=== PATIENT | female | born 1945 | race Asian ===

== ENCOUNTER 2017-05-27 16:28 | Inpatient (IN) | payer MEDICARE, OTHER ==
[2017-05-27] MEDS ORDERED: ALBUTEROL HFA 8 GM INHALER INH (18:00)
[2017-05-27] MEDS ORDERED: PANTOPRAZOLE (EC) 40 MG TAB PO (18:00)
[2017-05-27] MEDS: ASPIRIN 81 MG TAB PO (18:15)
[2017-05-27] MEDS: FUROSEMIDE 40 MG INJ IV (18:15)
[2017-05-27] MEDS: PIPER-TAZO 3.375 GM IV (PMX) 100 ML IVPB (18:16)
[2017-05-27 19:32] LABS: HEMATOCRIT 32.3 % (37.0-47.0); HEMOGLOBIN 10.7 g/dl (12.0-16.0); MEAN CORPUSCULAR HEMOGLOBIN 31.8 pg (29.0-33.0); MEAN CORPUSCULAR HGB CONC 33.1 g/dl (32.0-37.0); MEAN CORPUSCULAR VOLUME 95.8 fl (82.0-101.0); MEAN PLATELET VOLUME 9.1 fl (7.4-10.4); NUCLEATED RED BLOOD CELLS% 0.2 /100WBC (0.0-0.0); PLATELET COUNT 244 10^3/UL (140-415); RED BLOOD COUNT 3.37 10^6/ul (4.20-5.40); RED CELL DISTRIBUTION WIDTH 14.9 % (11.5-14.5)
[2017-05-27 19:32] LABS: WHITE BLOOD COUNT 8.4 10^3/ul (4.8-10.8)
[2017-05-27 19:33] LABS: ADD MAN DIFF? YES
[2017-05-27 19:57] LABS: ALANINE AMINOTRANSFERASE 51 IU/L (13-69); ALBUMIN 3.6 g/dl (3.3-4.9); ALBUMIN/GLOBULIN RATIO 0.85; ALKALINE PHOSPHATASE 236 IU/L (42-121); ANION GAP 17 (8-16); ASPARTATE AMINO TRANSFERASE 117 IU/L (15-46); BILIRUBIN,INDIRECT 0.3 mg/dl (0-1.1); BILIRUBIN,TOTAL 0.3 mg/dl (0.2-1.3); BLOOD UREA NITROGEN 49 mg/dl (7-20); CALCIUM 10.1 mg/dl (8.4-10.2); CARBON DIOXIDE 28 mmol/L (21-31); CHLORIDE 101 mmol/L (97-110); CREATININE 2.85 mg/dl (0.44-1.00); GLUCOSE 210 mg/dl (70-220); SODIUM 140 mmol/L (135-144); TOTAL PROTEIN 7.8 g/dl (6.1-8.1)
[2017-05-27 19:58] LABS: MAGNESIUM 1.8 mg/dl (1.7-2.5)
[2017-05-27 20:04] LABS: POTASSIUM 6.1 mmol/L (3.5-5.1)
[2017-05-27 20:05] LABS: B-TYPE NATRIURETIC PEPTIDE 622 PG/ML (0-125)
[2017-05-27] MEDS: ALBUTEROL/IPRATROPIUM (NEB) 3 ML AMP HHN (20:18)
[2017-05-27 20:31] LABS: BAND NEUTROPHILS #M 0.5 10^3/ul (0.0-0.6); BAND NEUTROPHILS % (M) 6 % (0-4); EOSINOPHILS % (M) 6 % (0-7); LYMPHOCYTES #M 0.9 10^3/ul (0.8-2.9); LYMPHOCYTES % (M) 11 % (15-51); MONOCYTE #M 1.4 10^3/ul (0.3-0.9); MONOCYTES % (M) 17 % (0-11); PLATELET ESTIMATE NORMAL; REACTIVE LYMPHOCYTES% (M) 12 % (0-0); SEG NEUT #M 4.1 10^3/ul (1.6-7.5); SEGMENTED NEUTROPHILS (M) % 48 % (39-77); SMUDGE%M 19 % (0-0)
[2017-05-27] MEDS ORDERED: VALSARTAN 160 MG TAB NGT (21:00)
[2017-05-27] MEDS ORDERED: INSULIN ASPART [NOVOLOG] 3 ML PEN SC ×4 (21:00)
[2017-05-27] MEDS: SALMETEROL/FLUTICASONE 250/50 INHA INH (21:49)
[2017-05-27] MEDS: VALSARTAN 160 MG TAB PO (21:53)
[2017-05-27] MEDS: SILVER SULFADIAZINE 1% 25 GM CR TOP (21:54)
[2017-05-27] MEDS: METOPROLOL (XL) 100 MG TAB PO (21:54)
[2017-05-27] MEDS: RANITIDINE 150 MG TAB PO (21:54)
[2017-05-27] MEDS: morphine 2 MG INJ IV (21:55)
[2017-05-27] MEDS: NA POLYST SULFON 15 GM/60 ML BTL PO (21:55)
[2017-05-27 22:22] LABS: ADD UMIC NO; UR ASCORBIC ACID NEGATIVE (NEGATIVE); UR BILIRUBIN (Dip) NEGATIVE (NEGATIVE); UR BLOOD (Dip) NEGATIVE (NEGATIVE); UR CLARITY CLEAR (CLEAR); UR COLOR STRAW (YELLOW); UR GLUCOSE (Dip) 1+ mg/dL (NEGATIVE); UR KETONES (Dip) NEGATIVE (NEGATIVE); UR LEUKOCYTE ESTERASE (Dip) NEGATIVE Leu/ul (NEGATIVE); UR NITRITE (Dip) NEGATIVE (NEGATIVE); UR SPECIFIC GRAVITY (Dip) 1.006 (1.003-1.030); UR TOTAL PROTEIN (Dip) NEGATIVE (NEGATIVE); UR UROBILINOGEN (Dip) NEGATIVE (NEGATIVE)
[2017-05-27] MEDS: INSULIN ASPART [NOVOLOG] 3 ML PEN SC (22:23)
[2017-05-28] MEDS: traMADol 50 MG TAB PO (01:05)
[2017-05-28] MEDS: ALBUTEROL/IPRATROPIUM (NEB) 3 ML AMP HHN ×4 (01:44→21:22)
[2017-05-28] MEDS ORDERED: ACCU-CHEK XX (02:00)
[2017-05-28] MEDS: morphine 2 MG INJ IV (02:09)
[2017-05-28] MEDS: PIPER-TAZO 3.375 GM IV (PMX) 100 ML IVPB ×2 (02:09→09:52)
[2017-05-28] MEDS: ACCU-CHEK XX (02:10)
[2017-05-28] MEDS ORDERED: HYDROmorphONE 2 MG/ML SYG IV (04:30)
[2017-05-28 04:54] LABS: ADD MAN DIFF? NO
[2017-05-28] MEDS: FUROSEMIDE 40 MG INJ IV ×2 (05:06→17:55)
[2017-05-28] MEDS: PANTOPRAZOLE (EC) 40 MG TAB PO (05:06)
[2017-05-28] MEDS: HYDROCODONE/APAP (10/325) TAB PO ×2 (05:07→11:24)
[2017-05-28 05:27] LABS: ANION GAP 17 (8-16); B-TYPE NATRIURETIC PEPTIDE 979 PG/ML (0-125); BLOOD UREA NITROGEN 48 mg/dl (7-20); CALCIUM 9.2 mg/dl (8.4-10.2); CARBON DIOXIDE 27 mmol/L (21-31); CHLORIDE 102 mmol/L (97-110); CREATININE 2.91 mg/dl (0.44-1.00); GLUCOSE 253 mg/dl (70-220); MAGNESIUM 1.5 mg/dl (1.7-2.5); POTASSIUM 5.2 mmol/L (3.5-5.1); SODIUM 141 mmol/L (135-144)
[2017-05-28 06:55] LABS: BASOPHIL # 0.1 10^3/ul (0.0-0.1); BASOPHILS % 0.9 % (0.0-2.0); EOSINOPHILS # 0.2 10^3/ul (0.0-0.5); EOSINOPHILS % 2.6 % (0.0-7.0); HEMATOCRIT 27.3 % (37.0-47.0); LYMPHOCYTES # 2.2 10^3/ul (0.8-2.9); MEAN CORPUSCULAR HEMOGLOBIN 31.1 pg (29.0-33.0); MEAN CORPUSCULAR VOLUME 94.5 fl (82.0-101.0); MEAN PLATELET VOLUME 9.6 fl (7.4-10.4); MONOCYTE # 1.3 10^3/ul (0.3-0.9); MONOCYTES % 18.9 % (0.0-11.0); NEUTROPHIL # 3.2 10^3/ul (1.6-7.5); NUCLEATED RED BLOOD CELLS # 0.1 10^3/ul (0.0-0.0); PLATELET COUNT 219 10^3/UL (140-415); RED BLOOD COUNT 2.89 10^6/ul (4.20-5.40); RED CELL DISTRIBUTION WIDTH 14.9 % (11.5-14.5)
[2017-05-28] MEDS: ASPIRIN 81 MG TAB PO (08:24)
[2017-05-28] MEDS: METOPROLOL (XL) 100 MG TAB PO (08:25)
[2017-05-28] MEDS: SILVER SULFADIAZINE 1% 25 GM CR TOP ×2 (08:25→22:46)
[2017-05-28] MEDS: RANITIDINE 150 MG TAB PO ×2 (08:25→22:47)
[2017-05-28] MEDS: SALMETEROL/FLUTICASONE 250/50 INHA INH ×2 (08:26→22:45)
[2017-05-28] MEDS: INSULIN ASPART [NOVOLOG] 3 ML PEN SC ×4 (08:27→22:55)
[2017-05-28] MEDS: VALSARTAN 160 MG TAB PO (08:29)
[2017-05-28] MEDS ORDERED: METOPROLOL (XL) 100 MG TAB PO (09:00)
[2017-05-28] MEDS ORDERED: morphine 4 MG/ML VIAL IV (10:00)
[2017-05-28] MEDS: MAGNESIUM SULFATE 1 GM/D5W 100 ML IVPB (10:14)
[2017-05-28] MEDS: VANCOMYCIN 500MG/NS (PMX) 100 ML IVPB (12:57)
[2017-05-28] MEDS: ENOXAPARIN 100 MG/ML SYG SC (15:06)
[2017-05-28] MEDS: PIPER-TAZO 2.25 GM (PMX) 50 ML IVPB ×2 (16:21→23:04)
[2017-05-28] MEDS: EPOETIN 10000 UNITS/ML (NON ESRD/NON ONCOLOGY) SC (16:34)
[2017-05-28] MEDS ORDERED: PIPER-TAZO 3.375 GM IV (PMX) 100 ML IVPB (21:00)
[2017-05-29] MEDS: METOPROLOL (XL) 100 MG TAB PO ×3 (00:10→21:10)
[2017-05-29] MEDS: ACCU-CHEK XX (02:00)
[2017-05-29] MEDS: ALBUTEROL/IPRATROPIUM (NEB) 3 ML AMP HHN ×4 (02:39→19:21)
[2017-05-29] MEDS: PANTOPRAZOLE (EC) 40 MG TAB PO (06:15)
[2017-05-29] MEDS: PIPER-TAZO 2.25 GM (PMX) 50 ML IVPB ×3 (06:15→21:09)
[2017-05-29] MEDS: FUROSEMIDE 40 MG INJ IV ×2 (06:20→17:35)
[2017-05-29 08:48] LABS: ADD MAN DIFF? NO
[2017-05-29] MEDS: INSULIN ASPART [NOVOLOG] 3 ML PEN SC ×4 (08:54→21:37)
[2017-05-29 08:58] LABS: WHITE BLOOD COUNT 8.8 10^3/ul (4.8-10.8)
[2017-05-29 08:58] LABS: ABNORMAL IP MESSAGE 1; BASOPHIL # 0.1 10^3/ul (0.0-0.1); BASOPHILS % 0.8 % (0.0-2.0); EOSINOPHILS # 0.4 10^3/ul (0.0-0.5); EOSINOPHILS % 4.8 % (0.0-7.0); HEMATOCRIT 30.3 % (37.0-47.0); HEMOGLOBIN 9.9 g/dl (12.0-16.0); LYMPHOCYTES # 3.4 10^3/ul (0.8-2.9); LYMPHOCYTES % 38.1 % (15.0-51.0); MEAN CORPUSCULAR HEMOGLOBIN 31.1 pg (29.0-33.0); MEAN CORPUSCULAR HGB CONC 32.7 g/dl (32.0-37.0); MEAN CORPUSCULAR VOLUME 95.3 fl (82.0-101.0); MEAN PLATELET VOLUME 9.4 fl (7.4-10.4); MONOCYTE # 1.6 10^3/ul (0.3-0.9); MONOCYTES % 18.6 % (0.0-11.0); NEUTROPHIL # 3.3 10^3/ul (1.6-7.5); NEUTROPHILS % 36.9 % (39.0-77.0); NUCLEATED RED BLOOD CELLS% 0.5 /100WBC (0.0-0.0); PLATELET COUNT 250 10^3/UL (140-415); RED BLOOD COUNT 3.18 10^6/ul (4.20-5.40); RED CELL DISTRIBUTION WIDTH 14.6 % (11.5-14.5)
[2017-05-29 09:03] LABS: POSITIVE DIFF @See below
[2017-05-29 09:11] LABS: IRON 73 ug/dl (35-150)
[2017-05-29 09:16] LABS: ALANINE AMINOTRANSFERASE 47 IU/L (13-69); ALBUMIN 2.8 g/dl (3.3-4.9); ALBUMIN/GLOBULIN RATIO 0.75; ALKALINE PHOSPHATASE 180 IU/L (42-121); ANION GAP 17 (8-16); ASPARTATE AMINO TRANSFERASE 80 IU/L (15-46); BILIRUBIN,INDIRECT 0.3 mg/dl (0-1.1); BILIRUBIN,TOTAL 0.3 mg/dl (0.2-1.3); BLOOD UREA NITROGEN 47 mg/dl (7-20); CALCIUM 9.5 mg/dl (8.4-10.2); CARBON DIOXIDE 31 mmol/L (21-31); CHLORIDE 100 mmol/L (97-110); CREATININE 3.33 mg/dl (0.44-1.00); GLUCOSE 150 mg/dl (70-220); MAGNESIUM 1.5 mg/dl (1.7-2.5); SODIUM 143 mmol/L (135-144); TOTAL PROTEIN 6.5 g/dl (6.1-8.1)
[2017-05-29 09:21] LABS: % IRON SATURATION 26 % SAT (22-52); TOTAL IRON BINDING CAPACITY 279 ug/dl (241-421)
[2017-05-29 09:22] LABS: B-TYPE NATRIURETIC PEPTIDE 571 PG/ML (0-125)
[2017-05-29] MEDS: APIXABAN 5 MG TABLET PO ×2 (09:41→21:10)
[2017-05-29] MEDS: SALMETEROL/FLUTICASONE 250/50 INHA INH ×2 (09:41→21:00)
[2017-05-29] MEDS: ASPIRIN 81 MG TAB PO (09:41)
[2017-05-29] MEDS: SILVER SULFADIAZINE 1% 25 GM CR TOP ×2 (09:46→21:15)
[2017-05-29] MEDS: HYDROCODONE/APAP (10/325) TAB PO (11:18)
[2017-05-29 12:14] LABS: OCCULT BLOOD STOOL POSITIVE (NEGATIVE)
[2017-05-29] MEDS: morphine 2 MG INJ IV (13:02)
[2017-05-29] MEDS ORDERED: MAGNESIUM SULFATE 2 GM/50 ML 50 ML IVPB (14:00)
[2017-05-29] MEDS: MAGNESIUM SULFATE 2 GM/50 ML 50 ML IVPB (16:54)
[2017-05-29 17:26] LABS: CREATININE, RANDOM URINE 14 mg/dL (20-320); MICROALBUMIN 12.2 mg/dL; MICROALBUMIN/CREATININE RATIO 871 (<30)
[2017-05-29] MEDS: RANITIDINE 150 MG TAB PO (21:10)
[2017-05-30] MEDS: ALBUTEROL/IPRATROPIUM (NEB) 3 ML AMP HHN ×4 (01:05→20:21)
[2017-05-30] MEDS: ACCU-CHEK XX (02:00)
[2017-05-30 03:08] LABS: CREATININE,URINE RANDOM 74.11 mg/dl (20-320); PROTEIN/CREAT RATIO 0.82 RATIO
[2017-05-30] MEDS: PANTOPRAZOLE (EC) 40 MG TAB PO (06:29)
[2017-05-30] MEDS: FUROSEMIDE 40 MG INJ IV ×2 (06:29→08:28)
[2017-05-30] MEDS: PIPER-TAZO 2.25 GM (PMX) 50 ML IVPB ×3 (06:30→22:32)
[2017-05-30 07:42] LABS: ADD MAN DIFF? NO
[2017-05-30 07:56] LABS: ABNORMAL IP MESSAGE 1; BASOPHIL # 0.1 10^3/ul (0.0-0.1); BASOPHILS % 0.5 % (0.0-2.0); EOSINOPHILS # 0.5 10^3/ul (0.0-0.5); EOSINOPHILS % 4.5 % (0.0-7.0); HEMATOCRIT 28.2 % (37.0-47.0); HEMOGLOBIN 9.4 g/dl (12.0-16.0); LYMPHOCYTES # 3.3 10^3/ul (0.8-2.9); LYMPHOCYTES % 32.5 % (15.0-51.0); MEAN CORPUSCULAR HEMOGLOBIN 31.9 pg (29.0-33.0); MEAN CORPUSCULAR HGB CONC 33.3 g/dl (32.0-37.0); MEAN CORPUSCULAR VOLUME 95.6 fl (82.0-101.0); MEAN PLATELET VOLUME 9.5 fl (7.4-10.4); MONOCYTE # 1.6 10^3/ul (0.3-0.9); MONOCYTES % 15.6 % (0.0-11.0); NEUTROPHIL # 4.6 10^3/ul (1.6-7.5); NEUTROPHILS % 45.4 % (39.0-77.0); NUCLEATED RED BLOOD CELLS # 0.1 10^3/ul (0.0-0.0); NUCLEATED RED BLOOD CELLS% 0.6 /100WBC (0.0-0.0); PLATELET COUNT 247 10^3/UL (140-415); RED BLOOD COUNT 2.95 10^6/ul (4.20-5.40); RED CELL DISTRIBUTION WIDTH 14.5 % (11.5-14.5)
[2017-05-30 07:56] LABS: WHITE BLOOD COUNT 10.1 10^3/ul (4.8-10.8)
[2017-05-30 08:00] LABS: POSITIVE DIFF @See below
[2017-05-30 08:10] LABS: ANION GAP 17 (8-16); BLOOD UREA NITROGEN 50 mg/dl (7-20); CALCIUM 8.9 mg/dl (8.4-10.2); CARBON DIOXIDE 31 mmol/L (21-31); CHLORIDE 98 mmol/L (97-110); CREATININE 4.29 mg/dl (0.44-1.00); GLUCOSE 184 mg/dl (70-220); MAGNESIUM 2.1 mg/dl (1.7-2.5); POTASSIUM 4.8 mmol/L (3.5-5.1); SODIUM 141 mmol/L (135-144)
[2017-05-30] MEDS: ASPIRIN 81 MG TAB PO (08:26)
[2017-05-30] MEDS: APIXABAN 5 MG TABLET PO ×2 (08:26→22:32)
[2017-05-30] MEDS: METOPROLOL (XL) 100 MG TAB PO ×2 (08:27→22:33)
[2017-05-30] MEDS: SILVER SULFADIAZINE 1% 25 GM CR TOP ×2 (08:29→22:40)
[2017-05-30] MEDS: SALMETEROL/FLUTICASONE 250/50 INHA INH ×2 (08:29→22:32)
[2017-05-30] MEDS: morphine LIQ (10 MG/5 ML) CUP PO ×2 (08:30→13:19)
[2017-05-30] MEDS: INSULIN ASPART [NOVOLOG] 3 ML PEN SC ×4 (08:32→22:42)
[2017-05-30 14:12] LABS: FOLATE > 20.0 ng/ml (2.8-20.0)
[2017-05-30] MEDS: EPOETIN 10000 UNITS/ML (NON ESRD/NON ONCOLOGY) SC (17:35)
[2017-05-30] MEDS: ONDANSETRON 4 MG INJ IV (18:15)
[2017-05-30 18:42] LABS: PROCALCITONIN 0.68 ng/mL (<0.10)
[2017-05-30] MEDS: SOD CHLORIDE 0.9% 250 ML IV (18:49)
[2017-05-30] MEDS: RANITIDINE 150 MG TAB PO (22:32)
[2017-05-31] MEDS: SOD CHLORIDE 0.9% 1,000 ML IV ×2 (01:28→14:18)
[2017-05-31] MEDS: ACCU-CHEK XX (01:28)
[2017-05-31] MEDS: ALBUTEROL/IPRATROPIUM (NEB) 3 ML AMP HHN ×4 (01:46→20:42)
[2017-05-31] MEDS: PANTOPRAZOLE (EC) 40 MG TAB PO (06:35)
[2017-05-31] MEDS: PIPER-TAZO 2.25 GM (PMX) 50 ML IVPB ×3 (06:35→20:31)
[2017-05-31] MEDS: SOD CHLORIDE 0.9% 250 ML IV (07:30)
[2017-05-31 08:05] LABS: ADD MAN DIFF? NO
[2017-05-31 08:14] LABS: ABNORMAL IP MESSAGE 1; BASOPHIL # 0.1 10^3/ul (0.0-0.1); BASOPHILS % 0.5 % (0.0-2.0); EOSINOPHILS # 0.6 10^3/ul (0.0-0.5); EOSINOPHILS % 5.2 % (0.0-7.0); HEMATOCRIT 29.3 % (37.0-47.0); HEMOGLOBIN 9.3 g/dl (12.0-16.0); LYMPHOCYTES % 35.1 % (15.0-51.0); MEAN CORPUSCULAR HEMOGLOBIN 30.7 pg (29.0-33.0); MEAN CORPUSCULAR HGB CONC 31.7 g/dl (32.0-37.0); MEAN CORPUSCULAR VOLUME 96.7 fl (82.0-101.0); MEAN PLATELET VOLUME 9.3 fl (7.4-10.4); MONOCYTE # 1.9 10^3/ul (0.3-0.9); NEUTROPHIL # 4.6 10^3/ul (1.6-7.5); NEUTROPHILS % 40.3 % (39.0-77.0); NUCLEATED RED BLOOD CELLS # 0.2 10^3/ul (0.0-0.0); NUCLEATED RED BLOOD CELLS% 2.1 /100WBC (0.0-0.0); PLATELET COUNT 257 10^3/UL (140-415); RED BLOOD COUNT 3.03 10^6/ul (4.20-5.40); RED CELL DISTRIBUTION WIDTH 14.7 % (11.5-14.5)
[2017-05-31 08:14] LABS: WHITE BLOOD COUNT 11.4 10^3/ul (4.8-10.8)
[2017-05-31 08:20] LABS: MONOCYTES % 16.8 % (0.0-11.0); POSITIVE DIFF @See below
[2017-05-31 08:29] LABS: ALANINE AMINOTRANSFERASE 35 IU/L (13-69); ALBUMIN/GLOBULIN RATIO 0.75; ALKALINE PHOSPHATASE 152 IU/L (42-121); ANION GAP 20 (8-16); ASPARTATE AMINO TRANSFERASE 61 IU/L (15-46); BILIRUBIN,INDIRECT 0.3 mg/dl (0-1.1); BILIRUBIN,TOTAL 0.3 mg/dl (0.2-1.3); BLOOD UREA NITROGEN 61 mg/dl (7-20); CALCIUM 8.4 mg/dl (8.4-10.2); CARBON DIOXIDE 28 mmol/L (21-31); CHLORIDE 98 mmol/L (97-110); CREATININE 6.25 mg/dl (0.44-1.00); GLUCOSE 152 mg/dl (70-220); MAGNESIUM 2.2 mg/dl (1.7-2.5); POTASSIUM 5.5 mmol/L (3.5-5.1); SODIUM 140 mmol/L (135-144)
[2017-05-31] MEDS: APIXABAN 5 MG TABLET PO ×2 (08:41→20:28)
[2017-05-31] MEDS: METOPROLOL (XL) 100 MG TAB PO ×2 (08:42→20:25)
[2017-05-31] MEDS: INSULIN ASPART [NOVOLOG] 3 ML PEN SC ×4 (08:43→20:56)
[2017-05-31] MEDS: SALMETEROL/FLUTICASONE 250/50 INHA INH ×2 (09:16→20:28)
[2017-05-31] MEDS: SILVER SULFADIAZINE 1% 25 GM CR TOP ×2 (09:16→20:28)
[2017-05-31] MEDS: NA POLYST SULFON 15 GM/60 ML BTL PO (14:05)
[2017-05-31 15:30] LABS: ADD UMIC YES; UR ASCORBIC ACID NEGATIVE (NEGATIVE); UR BILIRUBIN (Dip) NEGATIVE (NEGATIVE); UR BLOOD (Dip) 1+ mg/dL (NEGATIVE); UR CLARITY SLIGHTLY CLOUDY (CLEAR); UR COLOR YELLOW (YELLOW); UR GLUCOSE (Dip) NEGATIVE (NEGATIVE); UR KETONES (Dip) TRACE mg/dL (NEGATIVE); UR LEUKOCYTE ESTERASE (Dip) NEGATIVE Leu/ul (NEGATIVE); UR NITRITE (Dip) NEGATIVE (NEGATIVE); UR RBC 3 /HPF (0-5); UR SPECIFIC GRAVITY (Dip) 1.023 (1.003-1.030); UR TOTAL PROTEIN (Dip) 2+ mg/dl (NEGATIVE); UR UROBILINOGEN (Dip) NEGATIVE (NEGATIVE); UR WBC 3 /HPF (0-5)
[2017-05-31 16:15] LABS: SODIUM,URINE RANDOM 34 mmol/L (30-90)
[2017-05-31] MEDS: RANITIDINE 150 MG TAB PO (20:28)
[2017-05-31 22:45] LABS: POTASSIUM 5.5 mmol/L (3.5-5.1)
[2017-06-01] MEDS: NA POLYST SULFON 15 GM/60 ML BTL PO (00:14)
[2017-06-01] MEDS: SOD CHLORIDE 0.9% 1,000 ML IV ×3 (00:27→17:34)
[2017-06-01] MEDS: ALBUTEROL/IPRATROPIUM (NEB) 3 ML AMP HHN ×4 (01:38→19:41)
[2017-06-01] MEDS: ACCU-CHEK XX (01:48)
[2017-06-01] MEDS: PANTOPRAZOLE (EC) 40 MG TAB PO (06:08)
[2017-06-01] MEDS: PIPER-TAZO 2.25 GM (PMX) 50 ML IVPB ×3 (06:08→21:21)
[2017-06-01 06:50] LABS: ADD MAN DIFF? NO
[2017-06-01 06:53] LABS: WHITE BLOOD COUNT 11.5 10^3/ul (4.8-10.8)
[2017-06-01 06:53] LABS: ABNORMAL IP MESSAGE 1; BASOPHIL # 0.1 10^3/ul (0.0-0.1); BASOPHILS % 0.6 % (0.0-2.0); EOSINOPHILS # 0.5 10^3/ul (0.0-0.5); EOSINOPHILS % 4.2 % (0.0-7.0); HEMATOCRIT 27.5 % (37.0-47.0); LYMPHOCYTES % 26.4 % (15.0-51.0); MEAN CORPUSCULAR HEMOGLOBIN 30.9 pg (29.0-33.0); MEAN CORPUSCULAR HGB CONC 32.7 g/dl (32.0-37.0); MEAN CORPUSCULAR VOLUME 94.5 fl (82.0-101.0); MEAN PLATELET VOLUME 9.2 fl (7.4-10.4); MONOCYTE # 1.9 10^3/ul (0.3-0.9); NEUTROPHIL # 5.7 10^3/ul (1.6-7.5); NEUTROPHILS % 49.8 % (39.0-77.0); NUCLEATED RED BLOOD CELLS # 0.3 10^3/ul (0.0-0.0); NUCLEATED RED BLOOD CELLS% 2.2 /100WBC (0.0-0.0); PLATELET COUNT 242 10^3/UL (140-415); RED BLOOD COUNT 2.91 10^6/ul (4.20-5.40); RED CELL DISTRIBUTION WIDTH 14.6 % (11.5-14.5)
[2017-06-01 07:03] LABS: MONOCYTES % 16.3 % (0.0-11.0); POSITIVE DIFF @See below
[2017-06-01 07:26] LABS: ANION GAP 18 (8-16); BLOOD UREA NITROGEN 66 mg/dl (7-20); CALCIUM 7.7 mg/dl (8.4-10.2); CARBON DIOXIDE 26 mmol/L (21-31); CHLORIDE 100 mmol/L (97-110); CREATININE 6.56 mg/dl (0.44-1.00); GLUCOSE 178 mg/dl (70-220); MAGNESIUM 2.1 mg/dl (1.7-2.5); POTASSIUM 4.2 mmol/L (3.5-5.1); SODIUM 140 mmol/L (135-144)
[2017-06-01] MEDS: INSULIN ASPART [NOVOLOG] 3 ML PEN SC ×4 (08:41→21:28)
[2017-06-01] MEDS: METOPROLOL (XL) 100 MG TAB PO ×2 (08:44→21:21)
[2017-06-01] MEDS: APIXABAN 5 MG TABLET PO ×2 (08:45→21:21)
[2017-06-01] MEDS: SALMETEROL/FLUTICASONE 250/50 INHA INH ×2 (08:45→21:21)
[2017-06-01] MEDS: SILVER SULFADIAZINE 1% 25 GM CR TOP ×2 (08:45→21:22)
[2017-06-01] MEDS: CALCIUM GLUCONATE 10% 2 GM in DEXTROSE 5% 100 ML IVPB (14:05)
[2017-06-01] MEDS: EPOETIN 10000 UNITS/ML (NON ESRD/NON ONCOLOGY) SC (17:56)
[2017-06-01] MEDS: PETROLATUM 28.35 GM JELLY TOP ×2 (17:57→21:22)
[2017-06-01] MEDS: RANITIDINE 150 MG TAB PO (21:20)
[2017-06-02] MEDS: ALBUTEROL/IPRATROPIUM (NEB) 3 ML AMP HHN ×4 (01:18→19:56)
[2017-06-02] MEDS: ACCU-CHEK XX (02:24)
[2017-06-02] MEDS: PIPER-TAZO 2.25 GM (PMX) 50 ML IVPB ×3 (05:34→21:23)
[2017-06-02] MEDS: PANTOPRAZOLE (EC) 40 MG TAB PO (05:34)
[2017-06-02 06:40] LABS: ADD MAN DIFF? NO
[2017-06-02 06:48] LABS: WHITE BLOOD COUNT 8.6 10^3/ul (4.8-10.8)
[2017-06-02 06:48] LABS: BASOPHIL # 0.1 10^3/ul (0.0-0.1); BASOPHILS % 0.6 % (0.0-2.0); EOSINOPHILS # 0.3 10^3/ul (0.0-0.5); EOSINOPHILS % 3.1 % (0.0-7.0); HEMATOCRIT 25.1 % (37.0-47.0); HEMOGLOBIN 8.3 g/dl (12.0-16.0); LYMPHOCYTES # 1.9 10^3/ul (0.8-2.9); LYMPHOCYTES % 22.4 % (15.0-51.0); MEAN CORPUSCULAR HEMOGLOBIN 31.6 pg (29.0-33.0); MEAN CORPUSCULAR HGB CONC 33.1 g/dl (32.0-37.0); MEAN CORPUSCULAR VOLUME 95.4 fl (82.0-101.0); MEAN PLATELET VOLUME 9.5 fl (7.4-10.4); MONOCYTE # 1.4 10^3/ul (0.3-0.9); MONOCYTES % 16.3 % (0.0-11.0); NEUTROPHIL # 4.8 10^3/ul (1.6-7.5); NEUTROPHILS % 55.9 % (39.0-77.0); NUCLEATED RED BLOOD CELLS # 0.2 10^3/ul (0.0-0.0); NUCLEATED RED BLOOD CELLS% 1.9 /100WBC (0.0-0.0); PLATELET COUNT 195 10^3/UL (140-415); RED BLOOD COUNT 2.63 10^6/ul (4.20-5.40); RED CELL DISTRIBUTION WIDTH 14.6 % (11.5-14.5)
[2017-06-02 07:07] LABS: INR 2.46; PROTIME 27.3 Sec (11.9-14.9); PT RATIO 2.1
[2017-06-02 07:08] LABS: PARTIAL THROMBOPLASTIN TIME 53.8 Sec (25.0-35.0)
[2017-06-02 07:14] LABS: ALANINE AMINOTRANSFERASE 32 IU/L (13-69); ALBUMIN 2.4 g/dl (3.3-4.9); ALBUMIN/GLOBULIN RATIO 0.64; ALKALINE PHOSPHATASE 144 IU/L (42-121); ANION GAP 17 (8-16); ASPARTATE AMINO TRANSFERASE 53 IU/L (15-46); BILIRUBIN,INDIRECT 0.2 mg/dl (0-1.1); BILIRUBIN,TOTAL 0.2 mg/dl (0.2-1.3); BLOOD UREA NITROGEN 52 mg/dl (7-20); CALCIUM 7.5 mg/dl (8.4-10.2); CARBON DIOXIDE 25 mmol/L (21-31); CHLORIDE 106 mmol/L (97-110); CREATININE 3.79 mg/dl (0.44-1.00); GLUCOSE 182 mg/dl (70-220); MAGNESIUM 1.7 mg/dl (1.7-2.5); POTASSIUM 3.1 mmol/L (3.5-5.1); SODIUM 145 mmol/L (135-144); TOTAL PROTEIN 6.1 g/dl (6.1-8.1)
[2017-06-02] MEDS: INSULIN ASPART [NOVOLOG] 3 ML PEN SC ×4 (08:20→20:24)
[2017-06-02] MEDS: METOPROLOL (XL) 100 MG TAB PO ×2 (08:21→20:23)
[2017-06-02] MEDS: APIXABAN 5 MG TABLET PO ×2 (08:21→20:16)
[2017-06-02] MEDS: SILVER SULFADIAZINE 1% 25 GM CR TOP ×2 (08:22→20:16)
[2017-06-02] MEDS: PETROLATUM 28.35 GM JELLY TOP ×2 (08:22→20:17)
[2017-06-02] MEDS: SALMETEROL/FLUTICASONE 250/50 INHA INH ×2 (08:22→20:16)
[2017-06-02] MEDS ORDERED: INSULIN GLARGINE [LANtus] 3 ML PEN SC (12:30)
[2017-06-02] MEDS: POTASSIUM CHLORIDE (SR) 20 MEQ TAB PO (13:28)
[2017-06-02] MEDS: CALCIUM CARBONATE 750 MG CHEW TAB PO ×2 (13:28→19:24)
[2017-06-02] MEDS: HYDROCODONE/APAP (10/325) TAB PO (13:54)
[2017-06-02 14:06] LABS: OCCULT BLOOD STOOL POSITIVE (NEGATIVE)
[2017-06-02] MEDS: SOD CHLORIDE 0.9% 1,000 ML IV (17:15)
[2017-06-02] MEDS: RANITIDINE 150 MG TAB PO (20:15)
[2017-06-03] MEDS: ACETAMINOPHEN 325 MG TAB PO (00:43)
[2017-06-03] MEDS: ALBUTEROL/IPRATROPIUM (NEB) 3 ML AMP HHN ×4 (01:03→19:39)
[2017-06-03] MEDS: ACCU-CHEK XX (02:57)
[2017-06-03] MEDS: PANTOPRAZOLE (EC) 40 MG TAB PO (05:45)
[2017-06-03] MEDS: PIPER-TAZO 2.25 GM (PMX) 50 ML IVPB ×3 (05:45→22:00)
[2017-06-03 07:38] LABS: ADD MAN DIFF? NO
[2017-06-03 07:53] LABS: BASOPHIL # 0.1 10^3/ul (0.0-0.1); BASOPHILS % 0.5 % (0.0-2.0); EOSINOPHILS # 0.3 10^3/ul (0.0-0.5); EOSINOPHILS % 3.2 % (0.0-7.0); HEMATOCRIT 22.7 % (37.0-47.0); HEMOGLOBIN 7.3 g/dl (12.0-16.0); LYMPHOCYTES # 2.4 10^3/ul (0.8-2.9); LYMPHOCYTES % 22.5 % (15.0-51.0); MEAN CORPUSCULAR HEMOGLOBIN 31.1 pg (29.0-33.0); MEAN CORPUSCULAR HGB CONC 32.2 g/dl (32.0-37.0); MEAN CORPUSCULAR VOLUME 96.6 fl (82.0-101.0); MEAN PLATELET VOLUME 9.7 fl (7.4-10.4); MONOCYTE # 1.5 10^3/ul (0.3-0.9); MONOCYTES % 13.6 % (0.0-11.0); NEUTROPHIL # 6.2 10^3/ul (1.6-7.5); NEUTROPHILS % 57.1 % (39.0-77.0); NUCLEATED RED BLOOD CELLS # 0.2 10^3/ul (0.0-0.0); NUCLEATED RED BLOOD CELLS% 1.8 /100WBC (0.0-0.0); PLATELET COUNT 199 10^3/UL (140-415); RED BLOOD COUNT 2.35 10^6/ul (4.20-5.40); RED CELL DISTRIBUTION WIDTH 14.8 % (11.5-14.5)
[2017-06-03 07:53] LABS: WHITE BLOOD COUNT 10.8 10^3/ul (4.8-10.8)
[2017-06-03] MEDS: SALMETEROL/FLUTICASONE 250/50 INHA INH ×2 (08:07→20:40)
[2017-06-03] MEDS: INSULIN ASPART [NOVOLOG] 3 ML PEN SC ×4 (08:07→20:48)
[2017-06-03] MEDS: SILVER SULFADIAZINE 1% 25 GM CR TOP ×2 (08:07→20:41)
[2017-06-03] MEDS: PETROLATUM 28.35 GM JELLY TOP (08:07)
[2017-06-03] MEDS: APIXABAN 5 MG TABLET PO (08:08)
[2017-06-03] MEDS: METOPROLOL (XL) 100 MG TAB PO ×2 (08:08→20:43)
[2017-06-03] MEDS: CALCIUM CARBONATE 750 MG CHEW TAB PO ×3 (08:08→18:33)
[2017-06-03 08:11] LABS: ALANINE AMINOTRANSFERASE 31 IU/L (13-69); ALBUMIN 2.4 g/dl (3.3-4.9); ALBUMIN/GLOBULIN RATIO 0.66; ALKALINE PHOSPHATASE 129 IU/L (42-121); ANION GAP 15 (8-16); ASPARTATE AMINO TRANSFERASE 46 IU/L (15-46); BILIRUBIN,INDIRECT 0.2 mg/dl (0-1.1); BILIRUBIN,TOTAL 0.2 mg/dl (0.2-1.3); BLOOD UREA NITROGEN 44 mg/dl (7-20); CALCIUM 7.6 mg/dl (8.4-10.2); CARBON DIOXIDE 25 mmol/L (21-31); CHLORIDE 108 mmol/L (97-110); CREATININE 2.57 mg/dl (0.44-1.00); GLUCOSE 221 mg/dl (70-220); POTASSIUM 3.7 mmol/L (3.5-5.1); SODIUM 144 mmol/L (135-144)
[2017-06-03] MEDS: SOD CHLORIDE 0.9% 1,000 ML IV (09:00)
[2017-06-03] MEDS: traMADol 50 MG TAB PO (09:02)
[2017-06-03] MEDS: INSULIN GLARGINE [LANtus] 3 ML PEN SC (09:08)
[2017-06-03] MEDS: HYDROCODONE/APAP (10/325) TAB PO (10:09)
[2017-06-03] MEDS: SOD CHLORIDE 0.9% 250 ML IV* (10:20)
[2017-06-03 11:05] LABS: ADD MAN DIFF? NO
[2017-06-03 11:15] LABS: BASOPHILS % 0.4 % (0.0-2.0); EOSINOPHILS # 0.4 10^3/ul (0.0-0.5); EOSINOPHILS % 3.3 % (0.0-7.0); HEMATOCRIT 21.7 % (37.0-47.0); LYMPHOCYTES # 2.4 10^3/ul (0.8-2.9); MEAN CORPUSCULAR HEMOGLOBIN 31.7 pg (29.0-33.0); MEAN CORPUSCULAR HGB CONC 32.3 g/dl (32.0-37.0); MEAN CORPUSCULAR VOLUME 98.2 fl (82.0-101.0); MEAN PLATELET VOLUME 9.7 fl (7.4-10.4); MONOCYTE # 1.4 10^3/ul (0.3-0.9); MONOCYTES % 12.5 % (0.0-11.0); NEUTROPHIL # 6.4 10^3/ul (1.6-7.5); NEUTROPHILS % 58.2 % (39.0-77.0); NUCLEATED RED BLOOD CELLS # 0.3 10^3/ul (0.0-0.0); NUCLEATED RED BLOOD CELLS% 2.6 /100WBC (0.0-0.0); PLATELET COUNT 195 10^3/UL (140-415); RED BLOOD COUNT 2.21 10^6/ul (4.20-5.40); RED CELL DISTRIBUTION WIDTH 14.8 % (11.5-14.5)
[2017-06-03 11:36] LABS: ANION GAP 15 (8-16); BLOOD UREA NITROGEN 44 mg/dl (7-20); CALCIUM 7.7 mg/dl (8.4-10.2); CARBON DIOXIDE 24 mmol/L (21-31); CHLORIDE 109 mmol/L (97-110); CREATININE 2.31 mg/dl (0.44-1.00); GLUCOSE 275 mg/dl (70-220); POTASSIUM 4.3 mmol/L (3.5-5.1); SODIUM 144 mmol/L (135-144)
[2017-06-03] MEDS ORDERED: LIDOCAINE 1% (MDV) 20 ML INJ (12:12)
[2017-06-03] MEDS ORDERED: MIDAZOLAM 1 MG/ML 2 ML INJ (12:38)
[2017-06-03] MEDS ORDERED: IODIXANOL LOCM 50 ML BTL (12:38)
[2017-06-03] MEDS ORDERED: FENTAnyl 50 MCG/ML VIAL (12:38)
[2017-06-03] MEDS: morphine LIQ (10 MG/5 ML) CUP PO (13:49)
[2017-06-03] MEDS: RANITIDINE 150 MG TAB PO (20:40)
[2017-06-03] MEDS: PETROLATUM 5 GM OINT TOP (21:00)
[2017-06-03 22:43] LABS: IMMEDIATE SPIN CROSSMATCH 1 2
[2017-06-04] MEDS: HYDROCODONE/APAP (10/325) TAB PO (01:26)
[2017-06-04] MEDS: ONDANSETRON 4 MG INJ IV ×2 (01:52→12:55)
[2017-06-04] MEDS: ALBUTEROL/IPRATROPIUM (NEB) 3 ML AMP HHN ×4 (02:05→19:17)
[2017-06-04] MEDS: ACCU-CHEK XX (02:34)
[2017-06-04] MEDS: SOD CHLORIDE 0.9% 1,000 ML IV (06:30)
[2017-06-04] MEDS: PANTOPRAZOLE (EC) 40 MG TAB PO (06:30)
[2017-06-04 07:30] LABS: ADD MAN DIFF? NO
[2017-06-04 07:36] LABS: BASOPHIL # 0.1 10^3/ul (0.0-0.1); BASOPHILS % 0.6 % (0.0-2.0); EOSINOPHILS # 0.4 10^3/ul (0.0-0.5); EOSINOPHILS % 3.6 % (0.0-7.0); HEMATOCRIT 29.6 % (37.0-47.0); HEMOGLOBIN 9.8 g/dl (12.0-16.0); LYMPHOCYTES # 2.4 10^3/ul (0.8-2.9); LYMPHOCYTES % 20.7 % (15.0-51.0); MEAN CORPUSCULAR HEMOGLOBIN 29.8 pg (29.0-33.0); MEAN CORPUSCULAR HGB CONC 33.1 g/dl (32.0-37.0); MEAN PLATELET VOLUME 9.4 fl (7.4-10.4); MONOCYTE # 1.5 10^3/ul (0.3-0.9); MONOCYTES % 12.7 % (0.0-11.0); NEUTROPHIL # 6.8 10^3/ul (1.6-7.5); NEUTROPHILS % 59.7 % (39.0-77.0); NUCLEATED RED BLOOD CELLS # 0.4 10^3/ul (0.0-0.0); NUCLEATED RED BLOOD CELLS% 3.4 /100WBC (0.0-0.0); PLATELET COUNT 202 10^3/UL (140-415); RED BLOOD COUNT 3.29 10^6/ul (4.20-5.40); RED CELL DISTRIBUTION WIDTH 19.4 % (11.5-14.5)
[2017-06-04 07:36] LABS: WHITE BLOOD COUNT 11.4 10^3/ul (4.8-10.8)
[2017-06-04 07:59] LABS: ALANINE AMINOTRANSFERASE 34 IU/L (13-69); ALBUMIN 2.7 g/dl (3.3-4.9); ALBUMIN/GLOBULIN RATIO 0.75; ALKALINE PHOSPHATASE 125 IU/L (42-121); ANION GAP 15 (8-16); ASPARTATE AMINO TRANSFERASE 49 IU/L (15-46); BILIRUBIN,INDIRECT 0.5 mg/dl (0-1.1); BILIRUBIN,TOTAL 0.5 mg/dl (0.2-1.3); BLOOD UREA NITROGEN 41 mg/dl (7-20); CALCIUM 8.7 mg/dl (8.4-10.2); CARBON DIOXIDE 27 mmol/L (21-31); CHLORIDE 107 mmol/L (97-110); CREATININE 1.99 mg/dl (0.44-1.00); GLUCOSE 221 mg/dl (70-220); MAGNESIUM 1.4 mg/dl (1.7-2.5); POTASSIUM 5.2 mmol/L (3.5-5.1); SODIUM 144 mmol/L (135-144); TOTAL PROTEIN 6.3 g/dl (6.1-8.1)
[2017-06-04] MEDS: INSULIN ASPART [NOVOLOG] 3 ML PEN SC ×4 (08:59→22:00)
[2017-06-04] MEDS: PETROLATUM 5 GM OINT TOP ×2 (09:00→21:55)
[2017-06-04] MEDS: METOPROLOL (XL) 100 MG TAB PO ×2 (09:09→21:54)
[2017-06-04] MEDS: CALCIUM CARBONATE 750 MG CHEW TAB PO ×3 (09:09→19:05)
[2017-06-04] MEDS: SILVER SULFADIAZINE 1% 25 GM CR TOP ×2 (09:10→21:55)
[2017-06-04] MEDS: SALMETEROL/FLUTICASONE 250/50 INHA INH ×2 (09:16→21:54)
[2017-06-04] MEDS: INSULIN GLARGINE [LANtus] 3 ML PEN SC (09:29)
[2017-06-04] MEDS: morphine LIQ (10 MG/5 ML) CUP PO (10:49)
[2017-06-04] MEDS: MAGNESIUM SULFATE 2 GM/50 ML 50 ML IVPB (10:57)
[2017-06-04] MEDS: EPOETIN 10000 UNITS/ML (NON ESRD/NON ONCOLOGY) SC (17:34)
[2017-06-04] MEDS: RANITIDINE 150 MG TAB PO (21:54)
[2017-06-05] MEDS: ALBUTEROL/IPRATROPIUM (NEB) 3 ML AMP HHN ×4 (01:10→19:31)
[2017-06-05] MEDS: ACCU-CHEK XX (02:22)
[2017-06-05] MEDS: SOD CHLORIDE 0.9% 1,000 ML IV (06:17)
[2017-06-05] MEDS: PANTOPRAZOLE (EC) 40 MG TAB PO (06:17)
[2017-06-05 06:55] LABS: ADD MAN DIFF? NO
[2017-06-05 07:00] LABS: BASOPHIL # 0.1 10^3/ul (0.0-0.1); BASOPHILS % 0.6 % (0.0-2.0); EOSINOPHILS # 0.4 10^3/ul (0.0-0.5); EOSINOPHILS % 3.9 % (0.0-7.0); HEMATOCRIT 28.6 % (37.0-47.0); HEMOGLOBIN 9.5 g/dl (12.0-16.0); LYMPHOCYTES # 2.1 10^3/ul (0.8-2.9); LYMPHOCYTES % 20.2 % (15.0-51.0); MEAN CORPUSCULAR HEMOGLOBIN 29.9 pg (29.0-33.0); MEAN CORPUSCULAR HGB CONC 33.2 g/dl (32.0-37.0); MEAN CORPUSCULAR VOLUME 89.9 fl (82.0-101.0); MEAN PLATELET VOLUME 9.4 fl (7.4-10.4); MONOCYTE # 1.3 10^3/ul (0.3-0.9); MONOCYTES % 12.6 % (0.0-11.0); NEUTROPHIL # 6.5 10^3/ul (1.6-7.5); NEUTROPHILS % 61.2 % (39.0-77.0); NUCLEATED RED BLOOD CELLS # 0.1 10^3/ul (0.0-0.0); NUCLEATED RED BLOOD CELLS% 1.1 /100WBC (0.0-0.0); PLATELET COUNT 196 10^3/UL (140-415); RED BLOOD COUNT 3.18 10^6/ul (4.20-5.40); RED CELL DISTRIBUTION WIDTH 19.6 % (11.5-14.5)
[2017-06-05 07:00] LABS: WHITE BLOOD COUNT 10.5 10^3/ul (4.8-10.8)
[2017-06-05 07:22] LABS: ALANINE AMINOTRANSFERASE 34 IU/L (13-69); ALBUMIN 2.7 g/dl (3.3-4.9); ALBUMIN/GLOBULIN RATIO 0.69; ALKALINE PHOSPHATASE 144 IU/L (42-121); ANION GAP 14 (8-16); ASPARTATE AMINO TRANSFERASE 53 IU/L (15-46); BILIRUBIN,INDIRECT 0.5 mg/dl (0-1.1); BILIRUBIN,TOTAL 0.5 mg/dl (0.2-1.3); BLOOD UREA NITROGEN 39 mg/dl (7-20); CALCIUM 8.9 mg/dl (8.4-10.2); CARBON DIOXIDE 26 mmol/L (21-31); CHLORIDE 109 mmol/L (97-110); CREATININE 1.88 mg/dl (0.44-1.00); GLUCOSE 177 mg/dl (70-220); MAGNESIUM 1.9 mg/dl (1.7-2.5); PHOSPHORUS 1.9 mg/dl (2.5-4.9); POTASSIUM 4.7 mmol/L (3.5-5.1); SODIUM 144 mmol/L (135-144); TOTAL PROTEIN 6.6 g/dl (6.1-8.1)
[2017-06-05] MEDS: INSULIN ASPART [NOVOLOG] 3 ML PEN SC ×4 (08:05→20:57)
[2017-06-05] MEDS: INSULIN GLARGINE [LANtus] 3 ML PEN SC (08:07)
[2017-06-05] MEDS: CALCIUM CARBONATE 750 MG CHEW TAB PO ×3 (08:47→20:53)
[2017-06-05] MEDS: SALMETEROL/FLUTICASONE 250/50 INHA INH ×2 (08:47→20:54)
[2017-06-05] MEDS: METOPROLOL (XL) 100 MG TAB PO ×2 (08:47→20:55)
[2017-06-05] MEDS: SILVER SULFADIAZINE 1% 25 GM CR TOP ×2 (08:48→20:58)
[2017-06-05] MEDS: HYDROCODONE/APAP (10/325) TAB PO ×2 (10:03→14:47)
[2017-06-05] MEDS: DEXTROSE 5%-0.45% NACL 1,000 ML IV (10:42)
[2017-06-05] MEDS: hydrALAzine 20 MG INJ IV (11:13)
[2017-06-05 12:57] LABS: INR 1.49; PROTIME 18.3 Sec (11.9-14.9); PT RATIO 1.4
[2017-06-05 12:58] LABS: PARTIAL THROMBOPLASTIN TIME 45.2 Sec (25.0-35.0)
[2017-06-05] MEDS: PHENYLephrine (100 MCG/ML) 5ML SYG (13:35)
[2017-06-05] MEDS: PROPOFOL 20 ML (13:35)
[2017-06-05] MEDS: EPHEDrine SULFATE 50 MG/5 ML SYG (13:35)
[2017-06-05] MEDS: SODIUM PHOSPHATE 15 MMOL in SOD CHLORIDE 0.9% 250 ML IVPB (14:46)
[2017-06-05] MEDS: PRAMIPEXOLE 0.125 MG TAB PO (20:54)
[2017-06-05] MEDS: POLYSACCHARIDE IRON COMPLEX CAP PO (20:54)
[2017-06-05] MEDS: GABAPENTIN 100 MG CAP PO (20:54)
[2017-06-05] MEDS: RANITIDINE 150 MG TAB PO (20:56)
[2017-06-05] MEDS: PETROLATUM 5 GM OINT TOP (20:58)
[2017-06-05] MEDS ORDERED: TIZANIDINE 2 MG TAB PO (21:00)
[2017-06-06] MEDS: ALBUTEROL/IPRATROPIUM (NEB) 3 ML AMP HHN ×4 (01:07→20:53)
[2017-06-06] MEDS: hydrALAzine 20 MG INJ IV ×2 (01:38→12:31)
[2017-06-06] MEDS: ACCU-CHEK XX (02:01)
[2017-06-06] MEDS: HYDROCODONE/APAP (10/325) TAB PO (05:00)
[2017-06-06] MEDS: PANTOPRAZOLE (EC) 40 MG TAB PO (05:51)
[2017-06-06 07:51] LABS: ADD MAN DIFF? NO
[2017-06-06 07:57] LABS: BASOPHILS % 0.4 % (0.0-2.0); EOSINOPHILS # 0.4 10^3/ul (0.0-0.5); EOSINOPHILS % 3.5 % (0.0-7.0); HEMATOCRIT 28.2 % (37.0-47.0); HEMOGLOBIN 9.3 g/dl (12.0-16.0); LYMPHOCYTES # 1.8 10^3/ul (0.8-2.9); LYMPHOCYTES % 16.8 % (15.0-51.0); MEAN CORPUSCULAR HEMOGLOBIN 30.3 pg (29.0-33.0); MEAN CORPUSCULAR VOLUME 91.9 fl (82.0-101.0); MEAN PLATELET VOLUME 9.5 fl (7.4-10.4); MONOCYTE # 1.3 10^3/ul (0.3-0.9); MONOCYTES % 11.9 % (0.0-11.0); NEUTROPHILS % 66.5 % (39.0-77.0); NUCLEATED RED BLOOD CELLS # 0.1 10^3/ul (0.0-0.0); NUCLEATED RED BLOOD CELLS% 0.6 /100WBC (0.0-0.0); PLATELET COUNT 183 10^3/UL (140-415); RED BLOOD COUNT 3.07 10^6/ul (4.20-5.40); RED CELL DISTRIBUTION WIDTH 19.5 % (11.5-14.5)
[2017-06-06 07:57] LABS: WHITE BLOOD COUNT 10.6 10^3/ul (4.8-10.8)
[2017-06-06] MEDS: SALMETEROL/FLUTICASONE 250/50 INHA INH ×2 (08:15→20:30)
[2017-06-06] MEDS: PETROLATUM 5 GM OINT TOP ×2 (08:16→20:29)
[2017-06-06 08:17] LABS: ALANINE AMINOTRANSFERASE 35 IU/L (13-69); ALBUMIN 2.8 g/dl (3.3-4.9); ALBUMIN/GLOBULIN RATIO 0.73; ALKALINE PHOSPHATASE 135 IU/L (42-121); ANION GAP 14 (8-16); ASPARTATE AMINO TRANSFERASE 53 IU/L (15-46); BILIRUBIN,INDIRECT 0.4 mg/dl (0-1.1); BILIRUBIN,TOTAL 0.4 mg/dl (0.2-1.3); BLOOD UREA NITROGEN 32 mg/dl (7-20); CALCIUM 9.1 mg/dl (8.4-10.2); CARBON DIOXIDE 26 mmol/L (21-31); CHLORIDE 110 mmol/L (97-110); CREATININE 1.53 mg/dl (0.44-1.00); GLUCOSE 209 mg/dl (70-220); MAGNESIUM 1.6 mg/dl (1.7-2.5); PHOSPHORUS 2.7 mg/dl (2.5-4.9); POTASSIUM 4.8 mmol/L (3.5-5.1); SODIUM 145 mmol/L (135-144); TOTAL PROTEIN 6.6 g/dl (6.1-8.1)
[2017-06-06] MEDS: SILVER SULFADIAZINE 1% 25 GM CR TOP ×2 (08:17→20:31)
[2017-06-06] MEDS: GABAPENTIN 100 MG CAP PO ×3 (08:19→20:30)
[2017-06-06] MEDS: FUROSEMIDE 20 MG TAB PO (08:19)
[2017-06-06] MEDS: METOPROLOL (XL) 100 MG TAB PO ×2 (08:19→20:29)
[2017-06-06] MEDS: POLYSACCHARIDE IRON COMPLEX CAP PO ×2 (08:19→20:31)
[2017-06-06] MEDS: CALCIUM CARBONATE 750 MG CHEW TAB PO ×3 (08:19→20:28)
[2017-06-06] MEDS: INSULIN ASPART [NOVOLOG] 3 ML PEN SC ×4 (08:30→20:37)
[2017-06-06] MEDS: INSULIN GLARGINE [LANtus] 3 ML PEN SC (08:31)
[2017-06-06] MEDS: ACETAMINOPHEN 325 MG TAB PO (10:33)
[2017-06-06] MEDS: EPOETIN 10000 UNITS/ML (NON ESRD/NON ONCOLOGY) SC (17:15)
[2017-06-06] MEDS: MAGNESIUM SULFATE 2 GM/50 ML 50 ML IVPB (18:01)
[2017-06-06] MEDS: PRAMIPEXOLE 0.125 MG TAB PO (20:29)
[2017-06-06] MEDS: RANITIDINE 150 MG TAB PO (20:30)
[2017-06-07] MEDS: ACETAMINOPHEN 325 MG TAB PO ×3 (00:25→20:37)
[2017-06-07] MEDS: hydrALAzine 20 MG INJ IV (00:26)
[2017-06-07] MEDS: ALBUTEROL/IPRATROPIUM (NEB) 3 ML AMP HHN ×4 (01:29→19:19)
[2017-06-07] MEDS: ACCU-CHEK XX (02:00)
[2017-06-07] MEDS: PANTOPRAZOLE (EC) 40 MG TAB PO (05:43)
[2017-06-07 06:38] LABS: ADD MAN DIFF? NO
[2017-06-07 06:43] LABS: BASOPHIL # 0.1 10^3/ul (0.0-0.1); BASOPHILS % 0.4 % (0.0-2.0); EOSINOPHILS # 0.3 10^3/ul (0.0-0.5); EOSINOPHILS % 1.8 % (0.0-7.0); HEMATOCRIT 27.5 % (37.0-47.0); HEMOGLOBIN 9.1 g/dl (12.0-16.0); LYMPHOCYTES # 2.4 10^3/ul (0.8-2.9); LYMPHOCYTES % 15.9 % (15.0-51.0); MEAN CORPUSCULAR HGB CONC 33.1 g/dl (32.0-37.0); MEAN CORPUSCULAR VOLUME 90.8 fl (82.0-101.0); MEAN PLATELET VOLUME 9.2 fl (7.4-10.4); MONOCYTE # 1.3 10^3/ul (0.3-0.9); NEUTROPHIL # 10.7 10^3/ul (1.6-7.5); NEUTROPHILS % 72.4 % (39.0-77.0); NUCLEATED RED BLOOD CELLS% 0.3 /100WBC (0.0-0.0); PLATELET COUNT 181 10^3/UL (140-415); RED BLOOD COUNT 3.03 10^6/ul (4.20-5.40); RED CELL DISTRIBUTION WIDTH 19.9 % (11.5-14.5)
[2017-06-07 06:43] LABS: WHITE BLOOD COUNT 14.8 10^3/ul (4.8-10.8)
[2017-06-07 07:10] LABS: IRON 50 ug/dl (35-150)
[2017-06-07 07:19] LABS: % IRON SATURATION 19 % SAT (22-52); TOTAL IRON BINDING CAPACITY 266 ug/dl (241-421)
[2017-06-07 07:34] LABS: ANION GAP 14 (8-16); BLOOD UREA NITROGEN 27 mg/dl (7-20); CALCIUM 9.2 mg/dl (8.4-10.2); CARBON DIOXIDE 24 mmol/L (21-31); CHLORIDE 109 mmol/L (97-110); CREATININE 1.42 mg/dl (0.44-1.00); GLUCOSE 228 mg/dl (70-220); POTASSIUM 4.1 mmol/L (3.5-5.1); SODIUM 143 mmol/L (135-144)
[2017-06-07] MEDS: POLYSACCHARIDE IRON COMPLEX CAP PO ×2 (08:55→20:38)
[2017-06-07] MEDS: CALCIUM CARBONATE 750 MG CHEW TAB PO ×3 (08:55→20:00)
[2017-06-07] MEDS: METOPROLOL (XL) 100 MG TAB PO ×2 (08:56→20:38)
[2017-06-07] MEDS: SALMETEROL/FLUTICASONE 250/50 INHA INH ×2 (08:56→20:38)
[2017-06-07] MEDS: FUROSEMIDE 20 MG TAB PO (08:56)
[2017-06-07] MEDS: INSULIN ASPART [NOVOLOG] 3 ML PEN SC ×4 (08:57→20:49)
[2017-06-07] MEDS: INSULIN GLARGINE [LANtus] 3 ML PEN SC (08:58)
[2017-06-07] MEDS: GABAPENTIN 100 MG CAP PO ×3 (08:58→20:38)
[2017-06-07] MEDS: SILVER SULFADIAZINE 1% 25 GM CR TOP ×2 (08:58→20:39)
[2017-06-07] MEDS: PETROLATUM 5 GM OINT TOP ×2 (08:58→20:39)
[2017-06-07 12:50] LABS: ADD UMIC YES; UR ASCORBIC ACID NEGATIVE (NEGATIVE); UR BACTERIA FEW /HPF (NONE SEEN); UR BILIRUBIN (Dip) NEGATIVE (NEGATIVE); UR BLOOD (Dip) 3+ mg/dL (NEGATIVE); UR BUDDING YEAST MANY /HPF (NONE SEEN); UR CLARITY CLOUDY (CLEAR); UR COLOR YELLOW (YELLOW); UR GLUCOSE (Dip) 2+ mg/dL (NEGATIVE); UR KETONES (Dip) NEGATIVE (NEGATIVE); UR LEUKOCYTE ESTERASE (Dip) 2+ Leu/ul (NEGATIVE); UR NITRITE (Dip) NEGATIVE (NEGATIVE); UR RBC > 182 /HPF (0-5); UR SPECIFIC GRAVITY (Dip) 1.019 (1.003-1.030); UR SQUAMOUS EPITHELIAL CELL FEW /HPF (FEW); UR TOTAL PROTEIN (Dip) 2+ mg/dl (NEGATIVE); UR UROBILINOGEN (Dip) NEGATIVE (NEGATIVE); UR WBC 166 /HPF (0-5)
[2017-06-07] MEDS: LEVOFLOXACIN 500MG/D5W (PMX) 100 ML IVPB (17:31)
[2017-06-07] MEDS: RANITIDINE 150 MG TAB PO (20:37)
[2017-06-07] MEDS: PRAMIPEXOLE 0.125 MG TAB PO (20:37)
[2017-06-08] MEDS: ALBUTEROL/IPRATROPIUM (NEB) 3 ML AMP HHN ×4 (01:02→19:14)
[2017-06-08] MEDS: ACCU-CHEK XX (02:56)
[2017-06-08] MEDS: hydrALAzine 20 MG INJ IV (04:13)
[2017-06-08] MEDS: PANTOPRAZOLE (EC) 40 MG TAB PO (05:07)
[2017-06-08 06:17] LABS: ADD MAN DIFF? NO
[2017-06-08 06:24] LABS: BASOPHIL # 0.1 10^3/ul (0.0-0.1); BASOPHILS % 0.5 % (0.0-2.0); EOSINOPHILS # 0.3 10^3/ul (0.0-0.5); EOSINOPHILS % 3.4 % (0.0-7.0); HEMATOCRIT 27.6 % (37.0-47.0); HEMOGLOBIN 9.1 g/dl (12.0-16.0); LYMPHOCYTES # 1.8 10^3/ul (0.8-2.9); LYMPHOCYTES % 17.9 % (15.0-51.0); MEAN CORPUSCULAR VOLUME 91.1 fl (82.0-101.0); MEAN PLATELET VOLUME 9.6 fl (7.4-10.4); MONOCYTE # 1.3 10^3/ul (0.3-0.9); MONOCYTES % 13.4 % (0.0-11.0); NEUTROPHIL # 6.4 10^3/ul (1.6-7.5); NEUTROPHILS % 64.2 % (39.0-77.0); NUCLEATED RED BLOOD CELLS # 0.1 10^3/ul (0.0-0.0); NUCLEATED RED BLOOD CELLS% 0.5 /100WBC (0.0-0.0); PLATELET COUNT 186 10^3/UL (140-415); RED BLOOD COUNT 3.03 10^6/ul (4.20-5.40); RED CELL DISTRIBUTION WIDTH 19.1 % (11.5-14.5)
[2017-06-08 06:43] LABS: ALANINE AMINOTRANSFERASE 28 IU/L (13-69); ALBUMIN 2.6 g/dl (3.3-4.9); ALBUMIN/GLOBULIN RATIO 0.72; ALKALINE PHOSPHATASE 137 IU/L (42-121); ANION GAP 14 (8-16); ASPARTATE AMINO TRANSFERASE 43 IU/L (15-46); BILIRUBIN,INDIRECT 0.5 mg/dl (0-1.1); BILIRUBIN,TOTAL 0.5 mg/dl (0.2-1.3); BLOOD UREA NITROGEN 24 mg/dl (7-20); CALCIUM 9.4 mg/dl (8.4-10.2); CARBON DIOXIDE 24 mmol/L (21-31); CHLORIDE 108 mmol/L (97-110); CREATININE 1.31 mg/dl (0.44-1.00); GLUCOSE 216 mg/dl (70-220); POTASSIUM 3.9 mmol/L (3.5-5.1); SODIUM 142 mmol/L (135-144); TOTAL PROTEIN 6.2 g/dl (6.1-8.1)
[2017-06-08] MEDS: INSULIN GLARGINE [LANtus] 3 ML PEN SC (08:37)
[2017-06-08] MEDS: INSULIN ASPART [NOVOLOG] 3 ML PEN SC ×4 (08:37→20:33)
[2017-06-08] MEDS: PETROLATUM 5 GM OINT TOP ×2 (08:58→20:23)
[2017-06-08] MEDS: SILVER SULFADIAZINE 1% 25 GM CR TOP ×2 (08:58→20:24)
[2017-06-08] MEDS: FUROSEMIDE 20 MG TAB PO (09:19)
[2017-06-08] MEDS: SALMETEROL/FLUTICASONE 250/50 INHA INH ×2 (09:19→20:23)
[2017-06-08] MEDS: POLYSACCHARIDE IRON COMPLEX CAP PO ×2 (09:19→20:22)
[2017-06-08] MEDS: GABAPENTIN 100 MG CAP PO ×3 (09:19→20:22)
[2017-06-08] MEDS: METOPROLOL (XL) 100 MG TAB PO ×2 (09:20→20:23)
[2017-06-08] MEDS: CALCIUM CARBONATE 750 MG CHEW TAB PO ×3 (09:20→17:18)
[2017-06-08] MEDS: traMADol 50 MG TAB PO (09:21)
[2017-06-08] MEDS: EPOETIN 10000 UNITS/ML (NON ESRD/NON ONCOLOGY) SC (17:17)
[2017-06-08] MEDS: LEVOFLOXACIN 250MG/D5W (PMX) 50 ML IVPB (17:17)
[2017-06-08] MEDS: RANITIDINE 150 MG TAB PO (20:22)
[2017-06-08] MEDS: PRAMIPEXOLE 0.125 MG TAB PO (20:22)
[2017-06-08] MEDS: HYDROCODONE/APAP (10/325) TAB PO (23:28)
[2017-06-08] MEDS: PROMETHAZINE/DM (CUP) PO (23:28)
[2017-06-09] MEDS: ALBUTEROL/IPRATROPIUM (NEB) 3 ML AMP HHN ×4 (01:02→19:48)
[2017-06-09] MEDS: ACCU-CHEK XX (02:00)
[2017-06-09] MEDS: PANTOPRAZOLE (EC) 40 MG TAB PO (06:43)
[2017-06-09] MEDS: SALMETEROL/FLUTICASONE 250/50 INHA INH ×2 (08:42→20:35)
[2017-06-09] MEDS: traMADol 50 MG TAB PO (08:42)
[2017-06-09] MEDS: CALCIUM CARBONATE 750 MG CHEW TAB PO ×3 (08:42→17:07)
[2017-06-09] MEDS: FUROSEMIDE 20 MG TAB PO (08:43)
[2017-06-09] MEDS: POLYSACCHARIDE IRON COMPLEX CAP PO ×2 (08:43→20:35)
[2017-06-09] MEDS: GABAPENTIN 100 MG CAP PO ×3 (08:43→20:34)
[2017-06-09] MEDS: METOPROLOL (XL) 100 MG TAB PO ×2 (08:43→20:35)
[2017-06-09] MEDS: PETROLATUM 5 GM OINT TOP ×2 (08:43→20:38)
[2017-06-09] MEDS: SILVER SULFADIAZINE 1% 25 GM CR TOP ×2 (08:43→20:37)
[2017-06-09] MEDS: INSULIN GLARGINE [LANtus] 3 ML PEN SC (08:44)
[2017-06-09] MEDS: INSULIN ASPART [NOVOLOG] 3 ML PEN SC ×4 (08:45→20:42)
[2017-06-09] MEDS: PROMETHAZINE/DM (CUP) PO ×2 (12:19→20:37)
[2017-06-09] MEDS: LEVOFLOXACIN 250MG/D5W (PMX) 50 ML IVPB (17:07)
[2017-06-09] MEDS ORDERED: FLUCONAZOLE 100 MG TAB PO (18:30)
[2017-06-09] MEDS: RANITIDINE 150 MG TAB PO (20:34)
[2017-06-09] MEDS: FLUCONAZOLE 100 MG TAB PO (20:34)
[2017-06-09] MEDS: PRAMIPEXOLE 0.125 MG TAB PO (20:35)
[2017-06-10] MEDS: ALBUTEROL/IPRATROPIUM (NEB) 3 ML AMP HHN (02:00)
[2017-06-10] MEDS ORDERED: CIPROFLOXACIN 250 MG TAB PO (06:00)
[2017-06-10] MEDS ORDERED: INSULIN GLARGINE [LANtus] 3 ML PEN SC (09:00)
== END 2017-06-09 22:03 | DRG 252 ==
LOC: MS3 16:28 → MS4 05-28 19:06
PROC: 06H03DZ Insertion of Intraluminal Device into Inferior Vena Cava, Percutaneous Approach (ICD-10-PCS; principal; 2017-06-03 12:34)
PROC: 0DB68ZX Excision of Stomach, Via Natural or Artificial Opening Endoscopic, Diagnostic (ICD-10-PCS; 2017-06-03 12:34)
PROC: 0DB78ZX Excision of Stomach, Pylorus, Via Natural or Artificial Opening Endoscopic, Diagnostic (ICD-10-PCS; 2017-06-03 12:34)
PROC: 30233N1 Transfusion of Nonautologous Red Blood Cells into Peripheral Vein, Percutaneous Approach (ICD-10-PCS; 2017-06-03 12:34)
DX: I13.0 Hypertensive heart and chronic kidney disease with heart failure and stage 1 through stage 4 chronic kidney disease, or unspecified chronic kidney disease (principal); I50.33 Acute on chronic diastolic (congestive) heart failure; K25.4 Chronic or unspecified gastric ulcer with hemorrhage; N17.8 Other acute kidney failure; I82.412 Acute embolism and thrombosis of left femoral vein; L03.115 Cellulitis of right lower limb; J45.901 Unspecified asthma with (acute) exacerbation; Z68.41 Body mass index [BMI] 40.0-44.9, adult; L97.918 Non-pressure chronic ulcer of unspecified part of right lower leg with other specified severity; R04.2 Hemoptysis; N39.0 Urinary tract infection, site not specified; D62 Acute posthemorrhagic anemia; E11.22 Type 2 diabetes mellitus with diabetic chronic kidney disease; E66.01 Morbid (severe) obesity due to excess calories; I25.10 Atherosclerotic heart disease of native coronary artery without angina pectoris; Z96.41 Presence of insulin pump (external) (internal); D50.9 Iron deficiency anemia, unspecified; E83.42 Hypomagnesemia; I83.019 Varicose veins of right lower extremity with ulcer of unspecified site; E78.5 Hyperlipidemia, unspecified; N18.2 Chronic kidney disease, stage 2 (mild); E11.65 Type 2 diabetes mellitus with hyperglycemia; K44.9 Diaphragmatic hernia without obstruction or gangrene; R25.2 Cramp and spasm; E11.40 Type 2 diabetes mellitus with diabetic neuropathy, unspecified; G72.9 Myopathy, unspecified; E87.5 Hyperkalemia
CPT/HCPCS: 36430; 71045; 75940; 76775; 80048; 80053; 81001; 81003; 82043; 82270; 82570; 82607; 82728; 82746; 82962; 83540; 83735; 83880; 84100; 84132; 84145; 84300; 85025; 85610; 85730; 86320; 86850; 86900; 86901; 86920; 87040; 87070; 87086; 88305; 88312; 93005; 93306; 93970; 94640; 94664; 97110; 97163; 97165; 97530

== ENCOUNTER 2017-06-09 22:28 | Inpatient (IN) | payer MEDICARE, OTHER ==
[2017-06-09] MEDS ORDERED: BISACODYL 10 MG SUPP PR (23:30)
[2017-06-10] MEDS ORDERED: PENDING SANTYL ORDER FOR WOUND CARE XX
[2017-06-10] MEDS: ACCU-CHEK XX (02:42)
[2017-06-10] MEDS: LACTULOSE 30ML CUP PO (05:59)
[2017-06-10] MEDS: PANTOPRAZOLE (EC) 40 MG TAB PO (05:59)
[2017-06-10] MEDS: CIPROFLOXACIN 250 MG TAB PO ×2 (05:59→17:26)
[2017-06-10 07:10] LABS: ADD MAN DIFF? NO
[2017-06-10 07:16] LABS: ABNORMAL IP MESSAGE 1; BASOPHIL # 0.1 10^3/ul (0.0-0.1); BASOPHILS % 0.8 % (0.0-2.0); EOSINOPHILS # 0.4 10^3/ul (0.0-0.5); EOSINOPHILS % 4.8 % (0.0-7.0); HEMATOCRIT 28.5 % (37.0-47.0); HEMOGLOBIN 9.2 g/dl (12.0-16.0); LYMPHOCYTES # 1.9 10^3/ul (0.8-2.9); MEAN CORPUSCULAR HEMOGLOBIN 29.8 pg (29.0-33.0); MEAN CORPUSCULAR HGB CONC 32.3 g/dl (32.0-37.0); MEAN CORPUSCULAR VOLUME 92.2 fl (82.0-101.0); MEAN PLATELET VOLUME 9.8 fl (7.4-10.4); MONOCYTE # 1.8 10^3/ul (0.3-0.9); MONOCYTES % 19.5 % (0.0-11.0); NEUTROPHIL # 4.9 10^3/ul (1.6-7.5); NEUTROPHILS % 53.3 % (39.0-77.0); NUCLEATED RED BLOOD CELLS # 0.1 10^3/ul (0.0-0.0); NUCLEATED RED BLOOD CELLS% 0.7 /100WBC (0.0-0.0); PLATELET COUNT 244 10^3/UL (140-415); POSITIVE DIFF @See below; RED BLOOD COUNT 3.09 10^6/ul (4.20-5.40); RED CELL DISTRIBUTION WIDTH 19.3 % (11.5-14.5)
[2017-06-10 07:16] LABS: WHITE BLOOD COUNT 9.1 10^3/ul (4.8-10.8)
[2017-06-10 07:33] LABS: ADD UMIC YES; UR ASCORBIC ACID NEGATIVE (NEGATIVE); UR BACTERIA FEW /HPF (NONE SEEN); UR BILIRUBIN (Dip) NEGATIVE (NEGATIVE); UR BLOOD (Dip) 1+ mg/dL (NEGATIVE); UR BUDDING YEAST MANY /HPF (NONE SEEN); UR CLARITY CLOUDY (CLEAR); UR COLOR YELLOW (YELLOW); UR GLUCOSE (Dip) 1+ mg/dL (NEGATIVE); UR KETONES (Dip) NEGATIVE (NEGATIVE); UR LEUKOCYTE ESTERASE (Dip) 3+ Leu/ul (NEGATIVE); UR NITRITE (Dip) NEGATIVE (NEGATIVE); UR NONSQUAMOUS EPITHELIAL CELL 1 /HPF (NONE SEEN); UR RBC 74 /HPF (0-5); UR SQUAMOUS EPITHELIAL CELL FEW /HPF (FEW); UR TOTAL PROTEIN (Dip) 2+ mg/dl (NEGATIVE); UR UROBILINOGEN (Dip) NEGATIVE (NEGATIVE); UR WBC 92 /HPF (0-5)
[2017-06-10 07:49] LABS: ALANINE AMINOTRANSFERASE 37 IU/L (13-69); ALBUMIN 2.8 g/dl (3.3-4.9); ALBUMIN/GLOBULIN RATIO 0.73; ALKALINE PHOSPHATASE 152 IU/L (42-121); ANION GAP 13 (8-16); ASPARTATE AMINO TRANSFERASE 59 IU/L (15-46); BILIRUBIN,INDIRECT 0.6 mg/dl (0-1.1); BILIRUBIN,TOTAL 0.6 mg/dl (0.2-1.3); BLOOD UREA NITROGEN 26 mg/dl (7-20); CALCIUM 9.2 mg/dl (8.4-10.2); CARBON DIOXIDE 27 mmol/L (21-31); CHLORIDE 101 mmol/L (97-110); CREATININE 1.47 mg/dl (0.44-1.00); GLUCOSE 240 mg/dl (70-220); POTASSIUM 4.5 mmol/L (3.5-5.1); SODIUM 136 mmol/L (135-144); TOTAL PROTEIN 6.6 g/dl (6.1-8.1)
[2017-06-10] MEDS: INSULIN ASPART [NOVOLOG] 3 ML PEN SC ×4 (08:17→21:00)
[2017-06-10] MEDS: INSULIN GLARGINE [LANtus] 3 ML PEN SC ×2 (08:18→21:02)
[2017-06-10] MEDS: ALBUTEROL HFA 8 GM INHALER INH (08:53)
[2017-06-10] MEDS: PETROLATUM 5 GM OINT TOP ×2 (08:54→21:04)
[2017-06-10] MEDS: SILVER SULFADIAZINE 1% 25 GM CR TOP ×2 (08:54→21:04)
[2017-06-10] MEDS: POLYSACCHARIDE IRON COMPLEX CAP PO ×2 (08:56→21:03)
[2017-06-10] MEDS: DOCUSATE SODIUM 100 MG CAP PO ×2 (08:56→21:00)
[2017-06-10] MEDS: FUROSEMIDE 20 MG TAB PO (08:56)
[2017-06-10] MEDS: FLUCONAZOLE 100 MG TAB PO (08:56)
[2017-06-10] MEDS: METOPROLOL (XL) 100 MG TAB PO ×2 (08:57→21:00)
[2017-06-10] MEDS: GABAPENTIN 100 MG CAP PO ×3 (08:57→21:00)
[2017-06-10] MEDS: SALMETEROL/FLUTICASONE 250/50 INHA INH ×2 (09:00→20:59)
[2017-06-10] MEDS: BENZONATATE 100 MG CAP PO ×2 (12:32→21:00)
[2017-06-10] MEDS ORDERED: GLUCOSE GEL 15 GRAM TUBE PO ×2 (13:00)
[2017-06-10] MEDS ORDERED: GLUCOSE GEL 15 GRAM TUBE BUCCAL (13:00)
[2017-06-10] MEDS ORDERED: GLUCAGON 1 MG INJ IM (13:00)
[2017-06-10] MEDS ORDERED: DEXTROSE 50% 50 ML SYRINGE IV ×2 (13:00)
[2017-06-10] MEDS: RANITIDINE 150 MG TAB PO (20:59)
[2017-06-10] MEDS: PRAMIPEXOLE 0.125 MG TAB PO (20:59)
[2017-06-10] MEDS: SENNA TAB PO (21:00)
[2017-06-11] MEDS: ACCU-CHEK XX (02:00)
[2017-06-11] MEDS: CIPROFLOXACIN 250 MG TAB PO ×2 (06:25→17:30)
[2017-06-11] MEDS: PANTOPRAZOLE (EC) 40 MG TAB PO (06:25)
[2017-06-11] MEDS ORDERED: PROMETHAZINE/DM (CUP) PO (08:00)
[2017-06-11] MEDS: INSULIN ASPART [NOVOLOG] 3 ML PEN SC ×5 (08:09→21:09)
[2017-06-11] MEDS: SALMETEROL/FLUTICASONE 250/50 INHA INH ×2 (08:10→20:59)
[2017-06-11] MEDS: GABAPENTIN 100 MG CAP PO ×3 (08:10→20:58)
[2017-06-11] MEDS: PETROLATUM 5 GM OINT TOP ×2 (08:10→20:59)
[2017-06-11] MEDS: SILVER SULFADIAZINE 1% 25 GM CR TOP ×2 (08:10→21:10)
[2017-06-11] MEDS: METOPROLOL (XL) 100 MG TAB PO ×2 (08:11→20:59)
[2017-06-11] MEDS: POLYSACCHARIDE IRON COMPLEX CAP PO ×2 (08:11→20:59)
[2017-06-11] MEDS: FUROSEMIDE 20 MG TAB PO (08:11)
[2017-06-11] MEDS: DOCUSATE SODIUM 100 MG CAP PO ×2 (08:11→20:58)
[2017-06-11] MEDS: FLUCONAZOLE 100 MG TAB PO (08:12)
[2017-06-11] MEDS: FLUTICASONE 0.05% 16 GM NAS SPRAY NASAL ×2 (09:22→21:09)
[2017-06-11] MEDS ORDERED: INSULIN ASPART [NOVOLOG] 3 ML PEN SC (17:35)
[2017-06-11] MEDS: RANITIDINE 150 MG TAB PO (20:58)
[2017-06-11] MEDS: PRAMIPEXOLE 0.125 MG TAB PO (20:58)
[2017-06-11] MEDS: SENNA TAB PO (21:00)
[2017-06-11] MEDS: INSULIN GLARGINE [LANtus] 3 ML PEN SC (21:08)
[2017-06-11] MEDS: traMADol 50 MG TAB PO (21:48)
[2017-06-12] MEDS: ACCU-CHEK XX (02:00)
[2017-06-12 06:33] LABS: ADD MAN DIFF? NO
[2017-06-12 06:40] LABS: ABNORMAL IP MESSAGE 1; BASOPHIL # 0.1 10^3/ul (0.0-0.1); BASOPHILS % 0.6 % (0.0-2.0); EOSINOPHILS # 0.4 10^3/ul (0.0-0.5); HEMATOCRIT 28.7 % (37.0-47.0); HEMOGLOBIN 9.4 g/dl (12.0-16.0); LYMPHOCYTES # 1.8 10^3/ul (0.8-2.9); LYMPHOCYTES % 20.1 % (15.0-51.0); MEAN CORPUSCULAR HEMOGLOBIN 30.4 pg (29.0-33.0); MEAN CORPUSCULAR HGB CONC 32.8 g/dl (32.0-37.0); MEAN CORPUSCULAR VOLUME 92.9 fl (82.0-101.0); MEAN PLATELET VOLUME 9.6 fl (7.4-10.4); MONOCYTE # 1.7 10^3/ul (0.3-0.9); MONOCYTES % 19.3 % (0.0-11.0); NEUTROPHIL # 4.8 10^3/ul (1.6-7.5); NEUTROPHILS % 55.1 % (39.0-77.0); NUCLEATED RED BLOOD CELLS% 0.5 /100WBC (0.0-0.0); PLATELET COUNT 240 10^3/UL (140-415); RED BLOOD COUNT 3.09 10^6/ul (4.20-5.40); RED CELL DISTRIBUTION WIDTH 19.4 % (11.5-14.5)
[2017-06-12 06:40] LABS: WHITE BLOOD COUNT 8.7 10^3/ul (4.8-10.8)
[2017-06-12] MEDS: PANTOPRAZOLE (EC) 40 MG TAB PO (06:40)
[2017-06-12] MEDS: CIPROFLOXACIN 250 MG TAB PO (06:40)
[2017-06-12 06:41] LABS: POSITIVE DIFF @See below
[2017-06-12 06:56] LABS: ANION GAP 13 (8-16); BLOOD UREA NITROGEN 25 mg/dl (7-20); CALCIUM 8.9 mg/dl (8.4-10.2); CARBON DIOXIDE 30 mmol/L (21-31); CHLORIDE 100 mmol/L (97-110); CREATININE 1.49 mg/dl (0.44-1.00); GLUCOSE 267 mg/dl (70-220); POTASSIUM 4.6 mmol/L (3.5-5.1); SODIUM 138 mmol/L (135-144)
[2017-06-12] MEDS: POLYSACCHARIDE IRON COMPLEX CAP PO ×2 (08:43→21:04)
[2017-06-12] MEDS: METOPROLOL (XL) 100 MG TAB PO ×2 (08:43→21:04)
[2017-06-12] MEDS: GABAPENTIN 100 MG CAP PO ×3 (08:43→21:03)
[2017-06-12] MEDS: SALMETEROL/FLUTICASONE 250/50 INHA INH ×2 (08:44→21:07)
[2017-06-12] MEDS: FUROSEMIDE 20 MG TAB PO (08:44)
[2017-06-12] MEDS: FLUCONAZOLE 100 MG TAB PO (08:44)
[2017-06-12] MEDS: PETROLATUM 5 GM OINT TOP ×2 (08:44→21:05)
[2017-06-12] MEDS: DOCUSATE SODIUM 100 MG CAP PO ×2 (08:44→21:03)
[2017-06-12] MEDS: FLUTICASONE 0.05% 16 GM NAS SPRAY NASAL ×2 (08:45→21:07)
[2017-06-12] MEDS: INSULIN ASPART [NOVOLOG] 3 ML PEN SC ×7 (08:47→21:02)
[2017-06-12] MEDS: SILVER SULFADIAZINE 1% 25 GM CR TOP ×2 (09:00→21:06)
[2017-06-12] MEDS: traMADol 50 MG TAB PO (09:49)
[2017-06-12] MEDS: NITROFURANTOIN (SR) 100 MG CAP PO ×2 (09:49→21:09)
[2017-06-12] MEDS: HYDROCODONE/APAP (5/325) TAB PO ×2 (11:06→21:05)
[2017-06-12] MEDS: INSULIN GLARGINE [LANtus] 3 ML PEN SC (21:01)
[2017-06-12] MEDS: RANITIDINE 150 MG TAB PO (21:03)
[2017-06-12] MEDS: SENNA TAB PO (21:03)
[2017-06-12] MEDS: PRAMIPEXOLE 0.125 MG TAB PO (21:04)
[2017-06-12] MEDS: NYSTATIN 30 GM POWDER BTL TOP (21:06)
[2017-06-13] MEDS: ACCU-CHEK XX (02:00)
[2017-06-13] MEDS: PANTOPRAZOLE (EC) 40 MG TAB PO (06:16)
[2017-06-13 07:40] LABS: HEMOGLOBIN A1C 6.7 % (0-5.9)
[2017-06-13] MEDS: INSULIN ASPART [NOVOLOG] 3 ML PEN SC ×7 (08:30→21:13)
[2017-06-13] MEDS: SALMETEROL/FLUTICASONE 250/50 INHA INH ×2 (09:32→20:54)
[2017-06-13] MEDS: NITROFURANTOIN (SR) 100 MG CAP PO ×2 (09:34→20:53)
[2017-06-13] MEDS: FLUCONAZOLE 100 MG TAB PO (09:34)
[2017-06-13] MEDS: FUROSEMIDE 20 MG TAB PO (09:35)
[2017-06-13] MEDS: GABAPENTIN 100 MG CAP PO ×3 (09:36→20:53)
[2017-06-13] MEDS: BENZONATATE 100 MG CAP PO ×2 (09:36→09:43)
[2017-06-13] MEDS: POLYSACCHARIDE IRON COMPLEX CAP PO ×2 (09:36→20:53)
[2017-06-13] MEDS: DOCUSATE SODIUM 100 MG CAP PO ×2 (09:36→20:53)
[2017-06-13] MEDS: METOPROLOL (XL) 100 MG TAB PO ×2 (09:40→20:54)
[2017-06-13] MEDS: MECLIZINE 12.5 MG TAB PO ×3 (10:26→20:53)
[2017-06-13] MEDS: FLUTICASONE 0.05% 16 GM NAS SPRAY NASAL ×2 (10:36→21:02)
[2017-06-13] MEDS: NYSTATIN 30 GM POWDER BTL TOP ×2 (10:41→21:02)
[2017-06-13] MEDS: SILVER SULFADIAZINE 1% 25 GM CR TOP ×2 (10:41→21:00)
[2017-06-13] MEDS: PETROLATUM 5 GM OINT TOP ×2 (11:22→20:56)
[2017-06-13] MEDS: HYDROCODONE/APAP (5/325) TAB PO (11:37)
[2017-06-13] MEDS: SENNA TAB PO (20:53)
[2017-06-13] MEDS: RANITIDINE 150 MG TAB PO (20:53)
[2017-06-13] MEDS: PRAMIPEXOLE 0.125 MG TAB PO (20:53)
[2017-06-13] MEDS: INSULIN GLARGINE [LANtus] 3 ML PEN SC (21:13)
[2017-06-14] MEDS: ACCU-CHEK XX ×3 (02:53→19:35)
[2017-06-14] MEDS: PANTOPRAZOLE (EC) 40 MG TAB PO (06:27)
[2017-06-14 07:25] LABS: ADD MAN DIFF? NO
[2017-06-14 07:43] LABS: ABNORMAL IP MESSAGE 1; BASOPHIL # 0.1 10^3/ul (0.0-0.1); EOSINOPHILS # 0.3 10^3/ul (0.0-0.5); EOSINOPHILS % 3.3 % (0.0-7.0); HEMATOCRIT 31.2 % (37.0-47.0); HEMOGLOBIN 10.3 g/dl (12.0-16.0); LYMPHOCYTES # 1.9 10^3/ul (0.8-2.9); LYMPHOCYTES % 19.3 % (15.0-51.0); MEAN CORPUSCULAR HEMOGLOBIN 30.4 pg (29.0-33.0); MEAN PLATELET VOLUME 9.6 fl (7.4-10.4); MONOCYTE # 1.8 10^3/ul (0.3-0.9); NEUTROPHIL # 5.8 10^3/ul (1.6-7.5); NEUTROPHILS % 57.6 % (39.0-77.0); NUCLEATED RED BLOOD CELLS% 0.3 /100WBC (0.0-0.0); PLATELET COUNT 256 10^3/UL (140-415); RED BLOOD COUNT 3.39 10^6/ul (4.20-5.40); RED CELL DISTRIBUTION WIDTH 18.9 % (11.5-14.5)
[2017-06-14 07:43] LABS: WHITE BLOOD COUNT 10.1 10^3/ul (4.8-10.8)
[2017-06-14 07:44] LABS: MONOCYTES % 17.5 % (0.0-11.0); POSITIVE DIFF @See below
[2017-06-14] MEDS: INSULIN ASPART [NOVOLOG] 3 ML PEN SC ×6 (08:09→17:47)
[2017-06-14 08:13] LABS: ANION GAP 13 (8-16); BLOOD UREA NITROGEN 22 mg/dl (7-20); CALCIUM 8.7 mg/dl (8.4-10.2); CARBON DIOXIDE 28 mmol/L (21-31); CHLORIDE 101 mmol/L (97-110); CREATININE 1.12 mg/dl (0.44-1.00); GLUCOSE 198 mg/dl (70-220); POTASSIUM 5.1 mmol/L (3.5-5.1); SODIUM 137 mmol/L (135-144)
[2017-06-14] MEDS: NYSTATIN 30 GM POWDER BTL TOP ×2 (09:29→21:50)
[2017-06-14] MEDS: FLUTICASONE 0.05% 16 GM NAS SPRAY NASAL ×2 (09:29→21:49)
[2017-06-14] MEDS: SALMETEROL/FLUTICASONE 250/50 INHA INH ×2 (09:29→21:50)
[2017-06-14] MEDS: SILVER SULFADIAZINE 1% 25 GM CR TOP ×2 (09:30→21:51)
[2017-06-14] MEDS: traMADol 50 MG TAB PO (09:32)
[2017-06-14] MEDS: MECLIZINE 12.5 MG TAB PO ×3 (09:32→21:23)
[2017-06-14] MEDS: GABAPENTIN 100 MG CAP PO ×3 (09:32→21:23)
[2017-06-14] MEDS: METOPROLOL (XL) 100 MG TAB PO ×2 (09:33→21:24)
[2017-06-14] MEDS: DOCUSATE SODIUM 100 MG CAP PO ×2 (09:33→21:23)
[2017-06-14] MEDS: FUROSEMIDE 20 MG TAB PO (09:33)
[2017-06-14] MEDS: FLUCONAZOLE 100 MG TAB PO (09:33)
[2017-06-14] MEDS: POLYSACCHARIDE IRON COMPLEX CAP PO ×2 (09:33→21:23)
[2017-06-14] MEDS: BENZONATATE 100 MG CAP PO (09:34)
[2017-06-14] MEDS: NITROFURANTOIN (SR) 100 MG CAP PO ×2 (09:34→21:23)
[2017-06-14] MEDS: PETROLATUM 5 GM OINT TOP ×2 (09:36→21:50)
[2017-06-14 10:19] LABS: ANISOCYTOSIS 1+ (0-0); BAND NEUTROPHILS #M 0.2 10^3/ul (0.0-0.6); BAND NEUTROPHILS % (M) 2 % (0-4); EOSINOPHILS % (M) 1 % (0-7); LYMPHOCYTES % (M) 20 % (15-51); MONOCYTE #M 1.9 10^3/ul (0.3-0.9); MONOCYTES % (M) 19 % (0-11); MYELOCYTES #M 0.1 10^3/ul (0.0-0.0); MYELOCYTES % (M) 1 % (0-0); PLATELET ESTIMATE NORMAL; POIKILOCYTOSIS 1+ (0-0); POLYCHROMASIA 2+ (0-0); REACTIVE LYMPHOCYTES #M 0.2 10^3/ul (0.0-0.0); REACTIVE LYMPHOCYTES% (M) 2 % (0-0); SEG NEUT #M 5.6 10^3/ul (1.6-7.5); SEGMENTED NEUTROPHILS (M) % 55 % (39-77); SMUDGE%M 6 % (0-0)
[2017-06-14] MEDS: HYDROCODONE/APAP (5/325) TAB PO ×2 (11:11→17:48)
[2017-06-14] MEDS ORDERED: INSULIN GLARGINE [LANtus] 3 ML PEN SC (20:00)
[2017-06-14] MEDS: PRAMIPEXOLE 0.125 MG TAB PO (21:23)
[2017-06-14] MEDS: SENNA TAB PO (21:24)
[2017-06-14] MEDS: RANITIDINE 150 MG TAB PO (21:24)
[2017-06-15] MEDS: ACCU-CHEK XX ×7 (02:00→19:35)
[2017-06-15] MEDS: PANTOPRAZOLE (EC) 40 MG TAB PO (06:41)
[2017-06-15] MEDS: SALMETEROL/FLUTICASONE 250/50 INHA INH ×2 (08:23→21:06)
[2017-06-15] MEDS: FLUTICASONE 0.05% 16 GM NAS SPRAY NASAL ×2 (08:24→21:06)
[2017-06-15] MEDS: GABAPENTIN 100 MG CAP PO ×3 (08:26→21:04)
[2017-06-15] MEDS: BENZONATATE 100 MG CAP PO (08:26)
[2017-06-15] MEDS: FLUCONAZOLE 100 MG TAB PO (08:26)
[2017-06-15] MEDS: NITROFURANTOIN (SR) 100 MG CAP PO ×2 (08:26→21:04)
[2017-06-15] MEDS: POLYSACCHARIDE IRON COMPLEX CAP PO ×2 (08:26→21:04)
[2017-06-15] MEDS: MECLIZINE 12.5 MG TAB PO ×3 (08:26→21:04)
[2017-06-15] MEDS: DOCUSATE SODIUM 100 MG CAP PO ×2 (08:27→21:05)
[2017-06-15] MEDS: HYDROCODONE/APAP (5/325) TAB PO (08:27)
[2017-06-15] MEDS: FUROSEMIDE 20 MG TAB PO (08:27)
[2017-06-15] MEDS: METOPROLOL (XL) 100 MG TAB PO ×2 (08:28→21:05)
[2017-06-15] MEDS: SILVER SULFADIAZINE 1% 25 GM CR TOP ×2 (08:29→21:07)
[2017-06-15] MEDS: NYSTATIN 30 GM POWDER BTL TOP ×2 (08:29→21:06)
[2017-06-15] MEDS: PETROLATUM 5 GM OINT TOP ×3 (09:00→21:00)
[2017-06-15] MEDS: SENNA TAB PO (21:00)
[2017-06-15] MEDS: PRAMIPEXOLE 0.125 MG TAB PO (21:04)
[2017-06-15] MEDS: RANITIDINE 150 MG TAB PO (21:04)
[2017-06-16] MEDS: ACCU-CHEK XX ×7 (02:00→19:57)
[2017-06-16] MEDS: PANTOPRAZOLE (EC) 40 MG TAB PO (06:54)
[2017-06-16] MEDS: SALMETEROL/FLUTICASONE 250/50 INHA INH ×2 (09:15→20:26)
[2017-06-16] MEDS: FLUTICASONE 0.05% 16 GM NAS SPRAY NASAL ×2 (09:16→20:20)
[2017-06-16] MEDS: MECLIZINE 12.5 MG TAB PO ×3 (09:19→20:20)
[2017-06-16] MEDS: DOCUSATE SODIUM 100 MG CAP PO ×2 (09:19→20:31)
[2017-06-16] MEDS: NITROFURANTOIN (SR) 100 MG CAP PO ×2 (09:24→20:17)
[2017-06-16] MEDS: POLYSACCHARIDE IRON COMPLEX CAP PO ×2 (09:24→20:20)
[2017-06-16] MEDS: GABAPENTIN 100 MG CAP PO ×3 (09:24→20:18)
[2017-06-16] MEDS: FUROSEMIDE 20 MG TAB PO (09:24)
[2017-06-16] MEDS: METOPROLOL (XL) 100 MG TAB PO ×2 (09:25→20:23)
[2017-06-16] MEDS: NYSTATIN 30 GM POWDER BTL TOP ×2 (09:26→20:25)
[2017-06-16] MEDS: SILVER SULFADIAZINE 1% 25 GM CR TOP ×2 (09:27→21:00)
[2017-06-16] MEDS: PETROLATUM 28.35 GM JELLY TOP ×2 (12:30→20:25)
[2017-06-16] MEDS: HYDROCODONE/APAP (5/325) TAB PO ×2 (12:33→20:19)
[2017-06-16] MEDS: RANITIDINE 150 MG TAB PO (20:18)
[2017-06-16] MEDS: PRAMIPEXOLE 0.125 MG TAB PO (20:20)
[2017-06-16] MEDS: SENNA TAB PO (20:31)
[2017-06-17] MEDS: ACCU-CHEK XX ×5 (02:24→22:10)
[2017-06-17] MEDS: PANTOPRAZOLE (EC) 40 MG TAB PO (05:47)
[2017-06-17] MEDS: DOCUSATE SODIUM 100 MG CAP PO ×2 (08:39→21:00)
[2017-06-17] MEDS: FUROSEMIDE 20 MG TAB PO (08:40)
[2017-06-17] MEDS: GABAPENTIN 100 MG CAP PO ×3 (08:40→21:00)
[2017-06-17] MEDS: BENZONATATE 100 MG CAP PO (08:40)
[2017-06-17] MEDS: HYDROCODONE/APAP (5/325) TAB PO (08:41)
[2017-06-17] MEDS: MECLIZINE 12.5 MG TAB PO ×3 (08:42→21:00)
[2017-06-17] MEDS: SALMETEROL/FLUTICASONE 250/50 INHA INH ×2 (08:42→20:58)
[2017-06-17] MEDS: FLUTICASONE 0.05% 16 GM NAS SPRAY NASAL ×2 (08:43→20:57)
[2017-06-17] MEDS: POLYSACCHARIDE IRON COMPLEX CAP PO ×2 (08:46→21:00)
[2017-06-17] MEDS: NITROFURANTOIN (SR) 100 MG CAP PO ×2 (08:47→21:00)
[2017-06-17] MEDS: METOPROLOL (XL) 100 MG TAB PO ×2 (08:49→21:01)
[2017-06-17] MEDS: SILVER SULFADIAZINE 1% 25 GM CR TOP ×2 (09:00→22:01)
[2017-06-17] MEDS: NYSTATIN 30 GM POWDER BTL TOP ×2 (09:00→22:01)
[2017-06-17] MEDS: PETROLATUM 28.35 GM JELLY TOP ×2 (09:00→22:01)
[2017-06-17] MEDS: PT'S OWN INSULIN PUMP (Humalog) SC ×3 (12:00→22:10)
[2017-06-17 14:52] LABS: ADD MAN DIFF? NO
[2017-06-17 14:55] LABS: ABNORMAL IP MESSAGE 1; BASOPHIL # 0.1 10^3/ul (0.0-0.1); EOSINOPHILS # 0.3 10^3/ul (0.0-0.5); EOSINOPHILS % 3.4 % (0.0-7.0); HEMATOCRIT 32.1 % (37.0-47.0); HEMOGLOBIN 10.2 g/dl (12.0-16.0); LYMPHOCYTES # 2.2 10^3/ul (0.8-2.9); MEAN CORPUSCULAR HEMOGLOBIN 29.8 pg (29.0-33.0); MEAN CORPUSCULAR HGB CONC 31.8 g/dl (32.0-37.0); MEAN CORPUSCULAR VOLUME 93.9 fl (82.0-101.0); MEAN PLATELET VOLUME 9.3 fl (7.4-10.4); MONOCYTE # 1.7 10^3/ul (0.3-0.9); MONOCYTES % 17.3 % (0.0-11.0); NEUTROPHIL # 5.6 10^3/ul (1.6-7.5); NEUTROPHILS % 55.6 % (39.0-77.0); NUCLEATED RED BLOOD CELLS% 0.2 /100WBC (0.0-0.0); PLATELET COUNT 286 10^3/UL (140-415); RED BLOOD COUNT 3.42 10^6/ul (4.20-5.40)
[2017-06-17 14:59] LABS: POSITIVE DIFF @See below
[2017-06-17 15:23] LABS: ANION GAP 15 (8-16); BLOOD UREA NITROGEN 22 mg/dl (7-20); CALCIUM 9.4 mg/dl (8.4-10.2); CARBON DIOXIDE 30 mmol/L (21-31); CHLORIDE 98 mmol/L (97-110); CREATININE 1.37 mg/dl (0.44-1.00); GLUCOSE 189 mg/dl (70-220); POTASSIUM 4.9 mmol/L (3.5-5.1); SODIUM 138 mmol/L (135-144)
[2017-06-17 15:31] LABS: INR 1.09; PROTIME 14.2 Sec (11.9-14.9); PT RATIO 1.1
[2017-06-17 15:32] LABS: PARTIAL THROMBOPLASTIN TIME 40.9 Sec (25.0-35.0)
[2017-06-17] MEDS: FLUCONAZOLE 200 MG TAB PO (15:55)
[2017-06-17] MEDS: RANITIDINE 150 MG TAB PO (20:59)
[2017-06-17] MEDS: SENNA TAB PO ×2 (21:00)
[2017-06-17] MEDS: PRAMIPEXOLE 0.125 MG TAB PO (21:00)
[2017-06-18] MEDS: ONDANSETRON 4 MG TAB PO (02:23)
[2017-06-18] MEDS: ACCU-CHEK XX ×4 (02:57→21:30)
[2017-06-18 06:29] LABS: ADD MAN DIFF? NO
[2017-06-18 06:33] LABS: ABNORMAL IP MESSAGE 1; BASOPHIL # 0.1 10^3/ul (0.0-0.1); BASOPHILS % 0.9 % (0.0-2.0); EOSINOPHILS # 0.3 10^3/ul (0.0-0.5); EOSINOPHILS % 3.4 % (0.0-7.0); HEMATOCRIT 27.3 % (37.0-47.0); HEMOGLOBIN 8.9 g/dl (12.0-16.0); LYMPHOCYTES # 2.6 10^3/ul (0.8-2.9); LYMPHOCYTES % 28.4 % (15.0-51.0); MEAN CORPUSCULAR HEMOGLOBIN 29.8 pg (29.0-33.0); MEAN CORPUSCULAR HGB CONC 32.6 g/dl (32.0-37.0); MEAN CORPUSCULAR VOLUME 91.3 fl (82.0-101.0); MEAN PLATELET VOLUME 9.4 fl (7.4-10.4); MONOCYTE # 1.6 10^3/ul (0.3-0.9); MONOCYTES % 17.1 % (0.0-11.0); NEUTROPHIL # 4.5 10^3/ul (1.6-7.5); NEUTROPHILS % 49.9 % (39.0-77.0); PLATELET COUNT 215 10^3/UL (140-415); RED BLOOD COUNT 2.99 10^6/ul (4.20-5.40); RED CELL DISTRIBUTION WIDTH 18.7 % (11.5-14.5)
[2017-06-18 06:33] LABS: WHITE BLOOD COUNT 9.1 10^3/ul (4.8-10.8)
[2017-06-18] MEDS: PANTOPRAZOLE (EC) 40 MG TAB PO ×2 (06:40→17:48)
[2017-06-18 06:52] LABS: ANION GAP 10 (8-16); BLOOD UREA NITROGEN 24 mg/dl (7-20); CALCIUM 8.9 mg/dl (8.4-10.2); CARBON DIOXIDE 31 mmol/L (21-31); CHLORIDE 100 mmol/L (97-110); CREATININE 1.38 mg/dl (0.44-1.00); GLUCOSE 110 mg/dl (70-220); POTASSIUM 4.7 mmol/L (3.5-5.1); SODIUM 136 mmol/L (135-144)
[2017-06-18 06:56] LABS: INR 1.23; PROTIME 15.7 Sec (11.9-14.9); PT RATIO 1.2
[2017-06-18 07:05] LABS: POSITIVE DIFF @See below
[2017-06-18] MEDS: PT'S OWN INSULIN PUMP (Humalog) SC ×3 (08:14→21:30)
[2017-06-18] MEDS: RANITIDINE 150 MG TAB PO ×2 (08:17→20:18)
[2017-06-18] MEDS: FLUTICASONE 0.05% 16 GM NAS SPRAY NASAL ×2 (08:17→20:17)
[2017-06-18] MEDS: NITROFURANTOIN (SR) 100 MG CAP PO ×2 (08:17→20:18)
[2017-06-18] MEDS: SALMETEROL/FLUTICASONE 250/50 INHA INH ×2 (08:17→20:17)
[2017-06-18] MEDS: FLUCONAZOLE 100 MG TAB PO (08:18)
[2017-06-18] MEDS: MECLIZINE 12.5 MG TAB PO ×3 (08:18→20:18)
[2017-06-18] MEDS: GABAPENTIN 100 MG CAP PO ×3 (08:18→20:18)
[2017-06-18] MEDS: DOCUSATE SODIUM 100 MG CAP PO ×2 (08:19→20:19)
[2017-06-18] MEDS: FUROSEMIDE 20 MG TAB PO (08:19)
[2017-06-18] MEDS: POLYSACCHARIDE IRON COMPLEX CAP PO ×2 (08:19→20:18)
[2017-06-18] MEDS: NYSTATIN 30 GM POWDER BTL TOP ×2 (08:20→20:22)
[2017-06-18] MEDS: SILVER SULFADIAZINE 1% 25 GM CR TOP ×2 (08:20→20:22)
[2017-06-18] MEDS: METOPROLOL (XL) 100 MG TAB PO ×2 (08:20→20:19)
[2017-06-18] MEDS: PETROLATUM 28.35 GM JELLY TOP ×2 (08:21→20:22)
[2017-06-18 14:45] LABS: ADD MAN DIFF? NO
[2017-06-18 14:47] LABS: ABNORMAL IP MESSAGE 1; BASOPHIL # 0.1 10^3/ul (0.0-0.1); BASOPHILS % 1.2 % (0.0-2.0); EOSINOPHILS # 0.3 10^3/ul (0.0-0.5); EOSINOPHILS % 3.1 % (0.0-7.0); HEMOGLOBIN 10.6 g/dl (12.0-16.0); LYMPHOCYTES # 2.5 10^3/ul (0.8-2.9); LYMPHOCYTES % 23.5 % (15.0-51.0); MEAN CORPUSCULAR HEMOGLOBIN 29.9 pg (29.0-33.0); MEAN CORPUSCULAR HGB CONC 32.1 g/dl (32.0-37.0); MEAN CORPUSCULAR VOLUME 93.2 fl (82.0-101.0); MONOCYTE # 1.8 10^3/ul (0.3-0.9); MONOCYTES % 16.5 % (0.0-11.0); NEUTROPHIL # 5.9 10^3/ul (1.6-7.5); NEUTROPHILS % 54.8 % (39.0-77.0); PLATELET COUNT 244 10^3/UL (140-415); RED BLOOD COUNT 3.54 10^6/ul (4.20-5.40); RED CELL DISTRIBUTION WIDTH 19.1 % (11.5-14.5)
[2017-06-18 14:47] LABS: WHITE BLOOD COUNT 10.8 10^3/ul (4.8-10.8)
[2017-06-18 14:49] LABS: POSITIVE DIFF @See below
[2017-06-18] MEDS: PRAMIPEXOLE 0.125 MG TAB PO (20:18)
[2017-06-18] MEDS: SENNA TAB PO (20:28)
[2017-06-19] MEDS: ACCU-CHEK XX ×4 (02:20→19:35)
[2017-06-19] MEDS: PANTOPRAZOLE (EC) 40 MG TAB PO ×2 (05:25→17:17)
[2017-06-19] MEDS: SALMETEROL/FLUTICASONE 250/50 INHA INH ×2 (08:05→21:41)
[2017-06-19] MEDS: NITROFURANTOIN (SR) 100 MG CAP PO ×2 (08:05→21:33)
[2017-06-19] MEDS: POLYSACCHARIDE IRON COMPLEX CAP PO ×2 (08:06→21:33)
[2017-06-19] MEDS: traMADol 50 MG TAB PO (08:06)
[2017-06-19] MEDS: MECLIZINE 12.5 MG TAB PO ×3 (08:06→21:33)
[2017-06-19] MEDS: DOCUSATE SODIUM 100 MG CAP PO ×2 (08:06→21:41)
[2017-06-19] MEDS: FUROSEMIDE 20 MG TAB PO (08:06)
[2017-06-19] MEDS: GABAPENTIN 100 MG CAP PO ×3 (08:06→21:33)
[2017-06-19] MEDS: RANITIDINE 150 MG TAB PO ×2 (08:06→21:32)
[2017-06-19] MEDS: FLUCONAZOLE 100 MG TAB PO (08:06)
[2017-06-19] MEDS: METOPROLOL (XL) 100 MG TAB PO ×2 (08:07→21:37)
[2017-06-19] MEDS: PETROLATUM 28.35 GM JELLY TOP ×2 (08:07→21:43)
[2017-06-19] MEDS: NYSTATIN 30 GM POWDER BTL TOP ×2 (08:07→21:42)
[2017-06-19] MEDS: FLUTICASONE 0.05% 16 GM NAS SPRAY NASAL ×2 (08:08→21:41)
[2017-06-19] MEDS: SILVER SULFADIAZINE 1% 25 GM CR TOP ×2 (08:08→21:43)
[2017-06-19 09:33] LABS: ADD MAN DIFF? NO
[2017-06-19 09:40] LABS: ABNORMAL IP MESSAGE 1; BASOPHIL # 0.1 10^3/ul (0.0-0.1); BASOPHILS % 1.2 % (0.0-2.0); EOSINOPHILS # 0.4 10^3/ul (0.0-0.5); EOSINOPHILS % 3.7 % (0.0-7.0); HEMATOCRIT 31.3 % (37.0-47.0); HEMOGLOBIN 9.9 g/dl (12.0-16.0); LYMPHOCYTES % 19.7 % (15.0-51.0); MEAN CORPUSCULAR HEMOGLOBIN 29.8 pg (29.0-33.0); MEAN CORPUSCULAR HGB CONC 31.6 g/dl (32.0-37.0); MEAN CORPUSCULAR VOLUME 94.3 fl (82.0-101.0); MONOCYTE # 1.9 10^3/ul (0.3-0.9); MONOCYTES % 19.3 % (0.0-11.0); NEUTROPHIL # 5.6 10^3/ul (1.6-7.5); NEUTROPHILS % 55.6 % (39.0-77.0); PLATELET COUNT 250 10^3/UL (140-415); RED BLOOD COUNT 3.32 10^6/ul (4.20-5.40); RED CELL DISTRIBUTION WIDTH 18.9 % (11.5-14.5)
[2017-06-19 09:40] LABS: WHITE BLOOD COUNT 10.1 10^3/ul (4.8-10.8)
[2017-06-19 09:42] LABS: POSITIVE DIFF @See below
[2017-06-19 10:05] LABS: BLOOD UREA NITROGEN 25 mg/dl (7-20); CALCIUM 9.5 mg/dl (8.4-10.2); CARBON DIOXIDE 29 mmol/L (21-31); CHLORIDE 98 mmol/L (97-110); CREATININE 1.55 mg/dl (0.44-1.00); GLUCOSE 251 mg/dl (70-220); SODIUM 136 mmol/L (135-144)
[2017-06-19 10:19] LABS: ANION GAP 14 (8-16); POTASSIUM 4.8 mmol/L (3.5-5.1)
[2017-06-19] MEDS: PT'S OWN INSULIN PUMP (Humalog) SC ×2 (11:30→17:05)
[2017-06-19] MEDS: SENNA TAB PO (21:00)
[2017-06-19] MEDS: PRAMIPEXOLE 0.125 MG TAB PO (21:33)
[2017-06-20] MEDS: traMADol 50 MG TAB PO (00:20)
[2017-06-20] MEDS: ACCU-CHEK XX ×4 (02:00→19:42)
[2017-06-20] MEDS: PANTOPRAZOLE (EC) 40 MG TAB PO ×2 (06:55→19:46)
[2017-06-20] MEDS: PT'S OWN INSULIN PUMP (Humalog) SC ×3 (07:05→17:57)
[2017-06-20] MEDS: METOPROLOL (XL) 100 MG TAB PO ×2 (09:00→21:41)
[2017-06-20] MEDS: FUROSEMIDE 20 MG TAB PO (09:00)
[2017-06-20] MEDS: POLYSACCHARIDE IRON COMPLEX CAP PO ×2 (09:00→21:40)
[2017-06-20] MEDS: SALMETEROL/FLUTICASONE 250/50 INHA INH ×2 (09:05→21:00)
[2017-06-20] MEDS: FLUTICASONE 0.05% 16 GM NAS SPRAY NASAL ×2 (09:05→21:38)
[2017-06-20] MEDS: RANITIDINE 150 MG TAB PO ×2 (09:05→21:39)
[2017-06-20] MEDS: DOCUSATE SODIUM 100 MG CAP PO ×2 (09:05→21:39)
[2017-06-20] MEDS: NITROFURANTOIN (SR) 100 MG CAP PO ×2 (09:05→21:39)
[2017-06-20] MEDS: FLUCONAZOLE 100 MG TAB PO (09:05)
[2017-06-20] MEDS: GABAPENTIN 100 MG CAP PO ×3 (09:06→21:39)
[2017-06-20] MEDS: MECLIZINE 12.5 MG TAB PO ×3 (09:07→21:40)
[2017-06-20] MEDS: SILVER SULFADIAZINE 1% 25 GM CR TOP ×2 (09:08→21:41)
[2017-06-20] MEDS: NYSTATIN 30 GM POWDER BTL TOP ×2 (09:08→21:42)
[2017-06-20] MEDS: PETROLATUM 28.35 GM JELLY TOP ×2 (09:56→21:42)
[2017-06-20 12:11] LABS: ADD MAN DIFF? NO
[2017-06-20 12:20] LABS: ABNORMAL IP MESSAGE 1; BASOPHIL # 0.1 10^3/ul (0.0-0.1); BASOPHILS % 0.8 % (0.0-2.0); EOSINOPHILS # 0.3 10^3/ul (0.0-0.5); EOSINOPHILS % 2.2 % (0.0-7.0); HEMATOCRIT 28.3 % (37.0-47.0); HEMOGLOBIN 9.2 g/dl (12.0-16.0); LYMPHOCYTES # 2.5 10^3/ul (0.8-2.9); LYMPHOCYTES % 19.2 % (15.0-51.0); MEAN CORPUSCULAR HEMOGLOBIN 30.2 pg (29.0-33.0); MEAN CORPUSCULAR HGB CONC 32.5 g/dl (32.0-37.0); MEAN CORPUSCULAR VOLUME 92.8 fl (82.0-101.0); MEAN PLATELET VOLUME 9.7 fl (7.4-10.4); MONOCYTE # 2.1 10^3/ul (0.3-0.9); NEUTROPHIL # 7.9 10^3/ul (1.6-7.5); NEUTROPHILS % 61.1 % (39.0-77.0); PLATELET COUNT 248 10^3/UL (140-415); RED BLOOD COUNT 3.05 10^6/ul (4.20-5.40); RED CELL DISTRIBUTION WIDTH 18.6 % (11.5-14.5)
[2017-06-20 12:22] LABS: POSITIVE DIFF @See below
[2017-06-20] MEDS: SENNA TAB PO (21:39)
[2017-06-20] MEDS: PRAMIPEXOLE 0.125 MG TAB PO (21:43)
[2017-06-21] MEDS: ACCU-CHEK XX ×4 (02:00→19:35)
[2017-06-21] MEDS: PANTOPRAZOLE (EC) 40 MG TAB PO ×2 (06:40→18:47)
[2017-06-21] MEDS: LEVOFLOXACIN 250 MG TAB PO (06:40)
[2017-06-21 06:46] LABS: ADD MAN DIFF? NO
[2017-06-21 06:49] LABS: ABNORMAL IP MESSAGE 1; BASOPHIL # 0.1 10^3/ul (0.0-0.1); BASOPHILS % 1.2 % (0.0-2.0); EOSINOPHILS # 0.4 10^3/ul (0.0-0.5); EOSINOPHILS % 3.3 % (0.0-7.0); HEMATOCRIT 26.6 % (37.0-47.0); HEMOGLOBIN 8.6 g/dl (12.0-16.0); LYMPHOCYTES # 2.6 10^3/ul (0.8-2.9); LYMPHOCYTES % 23.7 % (15.0-51.0); MEAN CORPUSCULAR HEMOGLOBIN 30.1 pg (29.0-33.0); MEAN CORPUSCULAR HGB CONC 32.3 g/dl (32.0-37.0); MEAN PLATELET VOLUME 9.8 fl (7.4-10.4); MONOCYTE # 2.1 10^3/ul (0.3-0.9); MONOCYTES % 18.8 % (0.0-11.0); NEUTROPHIL # 5.7 10^3/ul (1.6-7.5); NEUTROPHILS % 52.3 % (39.0-77.0); PLATELET COUNT 241 10^3/UL (140-415); RED BLOOD COUNT 2.86 10^6/ul (4.20-5.40); RED CELL DISTRIBUTION WIDTH 18.8 % (11.5-14.5)
[2017-06-21 06:49] LABS: WHITE BLOOD COUNT 10.9 10^3/ul (4.8-10.8)
[2017-06-21 07:05] LABS: POSITIVE DIFF @See below
[2017-06-21] MEDS: PT'S OWN INSULIN PUMP (Humalog) SC ×3 (07:30→14:30)
[2017-06-21 07:43] LABS: ANION GAP 14 (8-16); BLOOD UREA NITROGEN 37 mg/dl (7-20); CALCIUM 8.7 mg/dl (8.4-10.2); CARBON DIOXIDE 30 mmol/L (21-31); CHLORIDE 95 mmol/L (97-110); CREATININE 2.15 mg/dl (0.44-1.00); GLUCOSE 257 mg/dl (70-220); POTASSIUM 5.3 mmol/L (3.5-5.1); SODIUM 134 mmol/L (135-144)
[2017-06-21] MEDS: PETROLATUM 28.35 GM JELLY TOP ×2 (09:00→20:37)
[2017-06-21] MEDS ORDERED: PIPER-TAZO 3.375 GM IV (PMX) 100 ML IVPB (10:00)
[2017-06-21] MEDS: GABAPENTIN 100 MG CAP PO ×3 (11:26→20:36)
[2017-06-21] MEDS: POLYSACCHARIDE IRON COMPLEX CAP PO ×2 (11:26→20:36)
[2017-06-21] MEDS: FLUCONAZOLE 100 MG TAB PO (11:27)
[2017-06-21] MEDS: DOCUSATE SODIUM 100 MG CAP PO ×2 (11:27→20:36)
[2017-06-21] MEDS: RANITIDINE 150 MG TAB PO ×2 (11:27→20:36)
[2017-06-21] MEDS: MECLIZINE 12.5 MG TAB PO ×3 (11:28→22:51)
[2017-06-21] MEDS: FLUTICASONE 0.05% 16 GM NAS SPRAY NASAL ×2 (11:28→20:35)
[2017-06-21] MEDS: SALMETEROL/FLUTICASONE 250/50 INHA INH ×2 (11:28→20:35)
[2017-06-21] MEDS: METOPROLOL (XL) 100 MG TAB PO ×2 (11:33→20:36)
[2017-06-21] MEDS: FUROSEMIDE 20 MG TAB PO (11:34)
[2017-06-21] MEDS: SILVER SULFADIAZINE 1% 25 GM CR TOP ×2 (11:37→20:37)
[2017-06-21] MEDS: NYSTATIN 30 GM POWDER BTL TOP ×2 (11:37→20:37)
[2017-06-21] MEDS: SOD CHLORIDE 0.9% 1,000 ML IV ×2 (12:28→18:30)
[2017-06-21] MEDS: traMADol 50 MG TAB PO (12:54)
[2017-06-21] MEDS: PIPER-TAZO 2.25 GM (PMX) 50 ML IVPB ×2 (12:54→22:50)
[2017-06-21] MEDS: ACETAMINOPHEN 325 MG TAB PO (15:17)
[2017-06-21] MEDS: ONDANSETRON 4 MG TAB PO (17:16)
[2017-06-21] MEDS ORDERED: PIPER-TAZO 2.25 GM (PMX) 50 ML IVPB (17:30)
[2017-06-21] MEDS: PRAMIPEXOLE 0.125 MG TAB PO (20:35)
[2017-06-21] MEDS: SENNA TAB PO (20:36)
[2017-06-22] MEDS: ACCU-CHEK XX ×4 (02:00→19:35)
[2017-06-22] MEDS: PANTOPRAZOLE (EC) 40 MG TAB PO ×2 (06:37→17:25)
[2017-06-22] MEDS: PIPER-TAZO 2.25 GM (PMX) 50 ML IVPB ×3 (06:38→21:50)
[2017-06-22] MEDS: SOD CHLORIDE 0.9% 1,000 ML IV ×2 (06:38→14:55)
[2017-06-22 06:48] LABS: ADD MAN DIFF? NO
[2017-06-22 06:51] LABS: ABNORMAL IP MESSAGE 1; BASOPHIL # 0.1 10^3/ul (0.0-0.1); BASOPHILS % 1.3 % (0.0-2.0); EOSINOPHILS # 0.4 10^3/ul (0.0-0.5); EOSINOPHILS % 4.7 % (0.0-7.0); HEMATOCRIT 27.4 % (37.0-47.0); HEMOGLOBIN 8.9 g/dl (12.0-16.0); LYMPHOCYTES # 1.7 10^3/ul (0.8-2.9); LYMPHOCYTES % 19.3 % (15.0-51.0); MEAN CORPUSCULAR HEMOGLOBIN 30.2 pg (29.0-33.0); MEAN CORPUSCULAR HGB CONC 32.5 g/dl (32.0-37.0); MEAN CORPUSCULAR VOLUME 92.9 fl (82.0-101.0); MEAN PLATELET VOLUME 9.7 fl (7.4-10.4); MONOCYTE # 1.8 10^3/ul (0.3-0.9); MONOCYTES % 20.2 % (0.0-11.0); NEUTROPHIL # 4.8 10^3/ul (1.6-7.5); NEUTROPHILS % 53.7 % (39.0-77.0); PLATELET COUNT 236 10^3/UL (140-415); RED BLOOD COUNT 2.95 10^6/ul (4.20-5.40); RED CELL DISTRIBUTION WIDTH 18.3 % (11.5-14.5)
[2017-06-22 06:51] LABS: WHITE BLOOD COUNT 8.9 10^3/ul (4.8-10.8)
[2017-06-22 07:03] LABS: POSITIVE DIFF @See below
[2017-06-22 07:07] LABS: ANION GAP 11 (8-16); BLOOD UREA NITROGEN 40 mg/dl (7-20); CALCIUM 8.4 mg/dl (8.4-10.2); CARBON DIOXIDE 29 mmol/L (21-31); CHLORIDE 98 mmol/L (97-110); GLUCOSE 229 mg/dl (70-220); POTASSIUM 5.1 mmol/L (3.5-5.1); SODIUM 133 mmol/L (135-144)
[2017-06-22] MEDS: PT'S OWN INSULIN PUMP (Humalog) SC ×3 (07:53→17:20)
[2017-06-22] MEDS: POLYSACCHARIDE IRON COMPLEX CAP PO ×2 (09:09→21:28)
[2017-06-22] MEDS: DOCUSATE SODIUM 100 MG CAP PO ×2 (09:09→21:27)
[2017-06-22] MEDS: MECLIZINE 12.5 MG TAB PO ×3 (09:09→21:28)
[2017-06-22] MEDS: FLUCONAZOLE 100 MG TAB PO (09:09)
[2017-06-22] MEDS: RANITIDINE 150 MG TAB PO ×2 (09:09→21:28)
[2017-06-22] MEDS: GABAPENTIN 100 MG CAP PO ×3 (09:09→21:28)
[2017-06-22] MEDS: METOPROLOL (XL) 100 MG TAB PO ×2 (09:09→21:29)
[2017-06-22] MEDS: FUROSEMIDE 20 MG TAB PO (09:10)
[2017-06-22] MEDS: SALMETEROL/FLUTICASONE 250/50 INHA INH ×2 (09:12→21:34)
[2017-06-22] MEDS: PETROLATUM 28.35 GM JELLY TOP ×2 (09:12→21:35)
[2017-06-22] MEDS: FLUTICASONE 0.05% 16 GM NAS SPRAY NASAL ×2 (09:12→21:35)
[2017-06-22] MEDS: NYSTATIN 30 GM POWDER BTL TOP ×2 (09:13→21:35)
[2017-06-22] MEDS: SILVER SULFADIAZINE 1% 25 GM CR TOP ×2 (09:13→21:35)
[2017-06-22] MEDS: ALBUTEROL HFA 8 GM INHALER INH ×2 (12:01→17:26)
[2017-06-22] MEDS: ACETAMINOPHEN 325 MG TAB PO (14:09)
[2017-06-22] MEDS ORDERED: LEVALBUTEROL (NEB) 1.25 MG/0.5 ML AMP HHN (18:30)
[2017-06-22] MEDS: LEVALBUTEROL (NEB) 1.25 MG/0.5 ML AMP HHN (19:20)
[2017-06-22] MEDS: PRAMIPEXOLE 0.125 MG TAB PO (21:28)
[2017-06-22] MEDS: SENNA TAB PO (21:28)
[2017-06-23] MEDS: LEVALBUTEROL (NEB) 1.25 MG/0.5 ML AMP HHN ×4 (01:40→19:43)
[2017-06-23] MEDS: SOD CHLORIDE 0.9% 1,000 ML IV (02:35)
[2017-06-23] MEDS: ACCU-CHEK XX ×4 (02:36→19:35)
[2017-06-23] MEDS: PIPER-TAZO 2.25 GM (PMX) 50 ML IVPB ×3 (06:16→21:34)
[2017-06-23] MEDS: PANTOPRAZOLE (EC) 40 MG TAB PO ×2 (06:20→18:17)
[2017-06-23] MEDS: PT'S OWN INSULIN PUMP (Humalog) SC ×3 (07:05→17:05)
[2017-06-23] MEDS: PETROLATUM 28.35 GM JELLY TOP ×2 (09:00→21:00)
[2017-06-23] MEDS: SILVER SULFADIAZINE 1% 25 GM CR TOP ×2 (09:00→21:00)
[2017-06-23] MEDS: DOCUSATE SODIUM 100 MG CAP PO ×2 (09:00→21:00)
[2017-06-23] MEDS: MECLIZINE 12.5 MG TAB PO ×3 (09:58→21:03)
[2017-06-23] MEDS: GABAPENTIN 100 MG CAP PO ×3 (09:58→21:03)
[2017-06-23] MEDS: RANITIDINE 150 MG TAB PO ×2 (09:58→21:03)
[2017-06-23] MEDS: FUROSEMIDE 20 MG TAB PO (09:59)
[2017-06-23] MEDS: FLUCONAZOLE 100 MG TAB PO (10:06)
[2017-06-23] MEDS: METOPROLOL (XL) 100 MG TAB PO ×2 (10:06→21:04)
[2017-06-23] MEDS: NYSTATIN 30 GM POWDER BTL TOP ×2 (10:13→21:05)
[2017-06-23] MEDS: SALMETEROL/FLUTICASONE 250/50 INHA INH ×2 (10:14→21:33)
[2017-06-23] MEDS: FLUTICASONE 0.05% 16 GM NAS SPRAY NASAL ×2 (10:14→21:33)
[2017-06-23] MEDS: POLYSACCHARIDE IRON COMPLEX CAP PO ×2 (10:22→21:03)
[2017-06-23] MEDS: SENNA TAB PO (21:00)
[2017-06-23] MEDS: PRAMIPEXOLE 0.125 MG TAB PO (21:03)
[2017-06-24] MEDS: LEVALBUTEROL (NEB) 1.25 MG/0.5 ML AMP HHN ×5 (01:23→20:00)
[2017-06-24] MEDS: ACCU-CHEK XX ×4 (02:21→19:35)
[2017-06-24] MEDS: PIPER-TAZO 2.25 GM (PMX) 50 ML IVPB ×4 (05:41→21:51)
[2017-06-24] MEDS: PANTOPRAZOLE (EC) 40 MG TAB PO ×2 (05:42→18:00)
[2017-06-24 06:22] LABS: ADD MAN DIFF? NO
[2017-06-24 06:36] LABS: ABNORMAL IP MESSAGE 1; BASOPHIL # 0.1 10^3/ul (0.0-0.1); BASOPHILS % 1.1 % (0.0-2.0); EOSINOPHILS # 0.4 10^3/ul (0.0-0.5); EOSINOPHILS % 4.4 % (0.0-7.0); HEMATOCRIT 25.7 % (37.0-47.0); HEMOGLOBIN 8.2 g/dl (12.0-16.0); LYMPHOCYTES # 1.9 10^3/ul (0.8-2.9); MEAN CORPUSCULAR HEMOGLOBIN 29.6 pg (29.0-33.0); MEAN CORPUSCULAR HGB CONC 31.9 g/dl (32.0-37.0); MEAN CORPUSCULAR VOLUME 92.8 fl (82.0-101.0); MEAN PLATELET VOLUME 9.9 fl (7.4-10.4); MONOCYTE # 1.7 10^3/ul (0.3-0.9); MONOCYTES % 20.4 % (0.0-11.0); NEUTROPHIL # 4.1 10^3/ul (1.6-7.5); NEUTROPHILS % 50.6 % (39.0-77.0); PLATELET COUNT 240 10^3/UL (140-415); RED BLOOD COUNT 2.77 10^6/ul (4.20-5.40); RED CELL DISTRIBUTION WIDTH 18.6 % (11.5-14.5)
[2017-06-24 06:36] LABS: WHITE BLOOD COUNT 8.1 10^3/ul (4.8-10.8)
[2017-06-24 06:45] LABS: POSITIVE DIFF @See below
[2017-06-24 07:01] LABS: ANION GAP 15 (8-16); BLOOD UREA NITROGEN 37 mg/dl (7-20); CALCIUM 8.4 mg/dl (8.4-10.2); CARBON DIOXIDE 23 mmol/L (21-31); CHLORIDE 107 mmol/L (97-110); CREATININE 1.69 mg/dl (0.44-1.00); GLUCOSE 168 mg/dl (70-220); POTASSIUM 4.9 mmol/L (3.5-5.1); SODIUM 140 mmol/L (135-144)
[2017-06-24] MEDS: PT'S OWN INSULIN PUMP (Humalog) SC ×3 (08:25→17:30)
[2017-06-24] MEDS: DOCUSATE SODIUM 100 MG CAP PO ×2 (09:00→20:43)
[2017-06-24] MEDS: PETROLATUM 28.35 GM JELLY TOP ×2 (09:00→20:44)
[2017-06-24] MEDS: METOPROLOL (XL) 100 MG TAB PO ×2 (09:00→20:44)
[2017-06-24] MEDS: FUROSEMIDE 20 MG TAB PO (09:00)
[2017-06-24] MEDS: SILVER SULFADIAZINE 1% 25 GM CR TOP ×2 (09:00→20:45)
[2017-06-24] MEDS: FLUTICASONE 0.05% 16 GM NAS SPRAY NASAL ×2 (09:00→21:55)
[2017-06-24] MEDS: GABAPENTIN 100 MG CAP PO ×3 (09:00→20:43)
[2017-06-24] MEDS: POLYSACCHARIDE IRON COMPLEX CAP PO ×2 (09:00→20:43)
[2017-06-24] MEDS: MECLIZINE 12.5 MG TAB PO ×3 (09:00→20:43)
[2017-06-24] MEDS: SALMETEROL/FLUTICASONE 250/50 INHA INH ×2 (09:00→20:44)
[2017-06-24] MEDS: RANITIDINE 150 MG TAB PO ×2 (09:00→20:43)
[2017-06-24] MEDS: FLUCONAZOLE 100 MG TAB PO (09:00)
[2017-06-24] MEDS: NYSTATIN 30 GM POWDER BTL TOP ×2 (09:00→20:44)
[2017-06-24] MEDS: traMADol 50 MG TAB PO (14:16)
[2017-06-24] MEDS: HYDROCODONE/APAP (5/325) TAB PO ×2 (16:31→23:32)
[2017-06-24] MEDS: SENNA TAB PO (20:43)
[2017-06-24] MEDS: PRAMIPEXOLE 0.125 MG TAB PO (20:43)
[2017-06-24] MEDS: ALBUTEROL HFA 8 GM INHALER INH (20:48)
[2017-06-25] MEDS: ACCU-CHEK XX ×3 (02:00→14:22)
[2017-06-25] MEDS: LEVALBUTEROL (NEB) 1.25 MG/0.5 ML AMP HHN ×6 (02:00→14:28)
[2017-06-25] MEDS ORDERED: IPRATROPIUM (NEB) 0.5 MG/2.5 ML AMP (04:19)
[2017-06-25] MEDS ORDERED: LEVALBUTEROL (NEB) 1.25 MG/0.5 ML AMP HHN (04:30)
[2017-06-25 04:39] LABS: AADO2 Arterial 35.4 mmHg (7.0-24.0); Allen Test ACCEPTAB; Arterial Base Excess -4.8 mmol/L (-3.0-3); Arterial Blood Gas Oxygen Sat 98.5 mmHG (95.0-100.0); Arterial COHb 0.3 % (0.0-3.0); Arterial Fraction of Oxyhgb 97.5 % (93.0-99.0); Arterial HCO3 20.1 mmol/L (22.0-26.0); Arterial MetHb 0.7 % (0.0-1.5); Arterial Total Hemglobin 10.9 g/dl (12.0-18.0); Arterial pCO2 36.7 mmhg (35-45); MODE NASAL CANNULA; Site Right Radial
[2017-06-25] MEDS ORDERED: IPRATROPIUM (NEB) 0.5 MG/2.5 ML AMP HHN (05:00)
[2017-06-25] MEDS: IPRATROPIUM (NEB) 0.5 MG/2.5 ML AMP HHN (05:24)
[2017-06-25] MEDS: PIPER-TAZO 2.25 GM (PMX) 50 ML IVPB (06:36)
[2017-06-25] MEDS: PANTOPRAZOLE (EC) 40 MG TAB PO (06:37)
[2017-06-25 07:03] LABS: ADD MAN DIFF? NO
[2017-06-25 07:17] LABS: WHITE BLOOD COUNT 8.4 10^3/ul (4.8-10.8)
[2017-06-25 07:17] LABS: ABNORMAL IP MESSAGE 1; BASOPHIL # 0.1 10^3/ul (0.0-0.1); BASOPHILS % 0.8 % (0.0-2.0); EOSINOPHILS # 0.4 10^3/ul (0.0-0.5); EOSINOPHILS % 4.4 % (0.0-7.0); HEMATOCRIT 24.6 % (37.0-47.0); HEMOGLOBIN 7.6 g/dl (12.0-16.0); LYMPHOCYTES # 2.2 10^3/ul (0.8-2.9); MEAN CORPUSCULAR HEMOGLOBIN 29.6 pg (29.0-33.0); MEAN CORPUSCULAR HGB CONC 30.9 g/dl (32.0-37.0); MEAN CORPUSCULAR VOLUME 95.7 fl (82.0-101.0); MEAN PLATELET VOLUME 9.5 fl (7.4-10.4); MONOCYTE # 1.9 10^3/ul (0.3-0.9); MONOCYTES % 22.2 % (0.0-11.0); NEUTROPHIL # 3.9 10^3/ul (1.6-7.5); NEUTROPHILS % 46.1 % (39.0-77.0); PLATELET COUNT 220 10^3/UL (140-415); RED BLOOD COUNT 2.57 10^6/ul (4.20-5.40)
[2017-06-25 07:22] LABS: POSITIVE DIFF @See below
[2017-06-25] MEDS: PT'S OWN INSULIN PUMP (Humalog) SC ×2 (07:25→11:44)
[2017-06-25 07:40] LABS: ANION GAP 15 (8-16); BLOOD UREA NITROGEN 32 mg/dl (7-20); CALCIUM 8.6 mg/dl (8.4-10.2); CARBON DIOXIDE 23 mmol/L (21-31); CHLORIDE 105 mmol/L (97-110); CREATININE 1.66 mg/dl (0.44-1.00); GLUCOSE 178 mg/dl (70-220); POTASSIUM 4.7 mmol/L (3.5-5.1); SODIUM 138 mmol/L (135-144)
[2017-06-25] MEDS: ALBUTEROL HFA 8 GM INHALER INH ×2 (09:46→16:12)
[2017-06-25] MEDS: SALMETEROL/FLUTICASONE 250/50 INHA INH (09:46)
[2017-06-25] MEDS: DOCUSATE SODIUM 100 MG CAP PO (09:47)
[2017-06-25] MEDS: FLUCONAZOLE 100 MG TAB PO (09:47)
[2017-06-25] MEDS: GABAPENTIN 100 MG CAP PO ×2 (09:47→13:22)
[2017-06-25] MEDS: RANITIDINE 150 MG TAB PO (09:48)
[2017-06-25] MEDS: FUROSEMIDE 20 MG INJ IV (09:48)
[2017-06-25] MEDS: POLYSACCHARIDE IRON COMPLEX CAP PO (09:48)
[2017-06-25] MEDS: FUROSEMIDE 20 MG TAB PO (09:49)
[2017-06-25] MEDS: MECLIZINE 12.5 MG TAB PO ×2 (09:49→13:22)
[2017-06-25] MEDS: METOPROLOL (XL) 100 MG TAB PO (09:49)
[2017-06-25] MEDS: PETROLATUM 28.35 GM JELLY TOP (09:50)
[2017-06-25] MEDS: FLUTICASONE 0.05% 16 GM NAS SPRAY NASAL (09:50)
[2017-06-25] MEDS: NYSTATIN 30 GM POWDER BTL TOP (09:51)
[2017-06-25] MEDS: SILVER SULFADIAZINE 1% 25 GM CR TOP (09:51)
[2017-06-25] MEDS: NITROFURANTOIN (SR) 100 MG CAP PO (11:46)
[2017-06-25] MEDS: HYDROCODONE/APAP (5/325) TAB PO (16:13)
[2017-06-26 00:29] LABS: IMMEDIATE SPIN CROSSMATCH 1 1
== END 2017-06-25 16:40 | disposition short-term general hospital (02) | DRG 945 ==
LOC: VRC 22:28
PROC: F07Z9ZZ Gait Training/Functional Ambulation Treatment (ICD-10-PCS; principal; 2017-06-09)
PROC: F08Z2ZZ Grooming/Personal Hygiene Treatment (ICD-10-PCS; 2017-06-09)
PROC: F07Z5ZZ Bed Mobility Treatment (ICD-10-PCS; 2017-06-09)
DX: Z51.89 Encounter for other specified aftercare (principal); J45.901 Unspecified asthma with (acute) exacerbation; I13.0 Hypertensive heart and chronic kidney disease with heart failure and stage 1 through stage 4 chronic kidney disease, or unspecified chronic kidney disease; I82.409 Acute embolism and thrombosis of unspecified deep veins of unspecified lower extremity; D62 Acute posthemorrhagic anemia; Z68.42 Body mass index [BMI] 45.0-49.9, adult; N17.9 Acute kidney failure, unspecified; L03.119 Cellulitis of unspecified part of limb; K92.2 Gastrointestinal hemorrhage, unspecified; N39.0 Urinary tract infection, site not specified; L89.159 Pressure ulcer of sacral region, unspecified stage; G72.89 Other specified myopathies; I50.9 Heart failure, unspecified; E66.01 Morbid (severe) obesity due to excess calories; E10.40 Type 1 diabetes mellitus with diabetic neuropathy, unspecified; E10.22 Type 1 diabetes mellitus with diabetic chronic kidney disease; E10.622 Type 1 diabetes mellitus with other skin ulcer; I25.10 Atherosclerotic heart disease of native coronary artery without angina pectoris; I87.8 Other specified disorders of veins; I87.2 Venous insufficiency (chronic) (peripheral); K25.9 Gastric ulcer, unspecified as acute or chronic, without hemorrhage or perforation; N18.3 Chronic kidney disease, stage 3 (moderate); B96.20 Unspecified Escherichia coli [E. coli] as the cause of diseases classified elsewhere; Z74.09 Other reduced mobility; Z88.6 Allergy status to analgesic agent
CPT/HCPCS: 36430; 36600; 70450; 71046; 80048; 80053; 81001; 82803; 82962; 83036; 85025; 85610; 85730; 86850; 86900; 86901; 86920; 87081; 87086; 94640; 94644; 94660; 94664; 97110; 97112; 97116; 97150; 97163; 97167; 97530; 97535; 97542

== ENCOUNTER 2017-06-25 17:04 | Inpatient (IN) | payer MEDICARE, OTHER ==
[2017-06-25] MEDS ORDERED: LACTULOSE 30ML CUP PO (17:30)
[2017-06-25] MEDS: ACETAMINOPHEN 500 MG TAB PO (18:00)
[2017-06-25] MEDS: PANTOPRAZOLE (EC) 40 MG TAB PO (18:07)
[2017-06-25] MEDS: METHYLPREDNISOLONE 125 MG INJ IV (18:07)
[2017-06-25] MEDS: FLUTICASONE 0.05% 16 GM NAS SPRAY NASAL (20:49)
[2017-06-25] MEDS: NYSTATIN 30 GM POWDER BTL TOP (20:49)
[2017-06-25] MEDS: RANITIDINE 150 MG TAB PO (20:49)
[2017-06-25] MEDS: METOPROLOL (XL) 100 MG TAB PO (20:50)
[2017-06-25] MEDS: SENNA TAB PO (20:50)
[2017-06-25] MEDS: GABAPENTIN 100 MG CAP PO (20:50)
[2017-06-25] MEDS: HYDROCODONE/APAP (5/325) TAB PO (20:50)
[2017-06-25] MEDS: PRAMIPEXOLE 0.125 MG TAB PO (20:51)
[2017-06-25] MEDS: PT'S OWN INSULIN PUMP SC (21:22)
[2017-06-25] MEDS: PIPER-TAZO 3.375 GM IV (PMX) 100 ML IVPB (22:22)
[2017-06-25] MEDS: LEVALBUTEROL (NEB) 1.25 MG/0.5 ML AMP HHN (23:25)
[2017-06-25] MEDS: ACETAMINOPHEN 325 MG TAB PO (23:46)
[2017-06-25] MEDS: DIPHENHYDRAMINE 50 MG INJ IV (23:47)
[2017-06-26] MEDS ORDERED: PENDING SANTYL ORDER FOR WOUND CARE XX (00:30)
[2017-06-26] MEDS: LEVALBUTEROL (NEB) 1.25 MG/0.5 ML AMP HHN ×5 (02:22→23:36)
[2017-06-26] MEDS: PIPER-TAZO 3.375 GM IV (PMX) 100 ML IVPB ×3 (05:57→22:29)
[2017-06-26] MEDS: PANTOPRAZOLE (EC) 40 MG TAB PO ×2 (05:57→18:01)
[2017-06-26] MEDS: PT'S OWN INSULIN PUMP SC ×4 (07:30→20:15)
[2017-06-26 08:08] LABS: ADD MAN DIFF? NO
[2017-06-26 08:15] LABS: BASOPHILS % 0.5 % (0.0-2.0); EOSINOPHILS % 0.2 % (0.0-7.0); HEMATOCRIT 28.7 % (37.0-47.0); HEMOGLOBIN 9.5 g/dl (12.0-16.0); LYMPHOCYTES # 1.7 10^3/ul (0.8-2.9); LYMPHOCYTES % 29.8 % (15.0-51.0); MEAN CORPUSCULAR HEMOGLOBIN 30.4 pg (29.0-33.0); MEAN CORPUSCULAR HGB CONC 33.1 g/dl (32.0-37.0); MONOCYTE # 0.3 10^3/ul (0.3-0.9); MONOCYTES % 4.7 % (0.0-11.0); NEUTROPHIL # 3.5 10^3/ul (1.6-7.5); NEUTROPHILS % 63.7 % (39.0-77.0); PLATELET COUNT 231 10^3/UL (140-415); RED BLOOD COUNT 3.12 10^6/ul (4.20-5.40); RED CELL DISTRIBUTION WIDTH 18.2 % (11.5-14.5)
[2017-06-26 08:15] LABS: WHITE BLOOD COUNT 5.5 10^3/ul (4.8-10.8)
[2017-06-26] MEDS: NYSTATIN 30 GM POWDER BTL TOP ×2 (08:51→22:36)
[2017-06-26] MEDS: FLUTICASONE 0.05% 16 GM NAS SPRAY NASAL ×2 (08:52→22:28)
[2017-06-26] MEDS: GABAPENTIN 100 MG CAP PO ×3 (08:52→22:28)
[2017-06-26] MEDS: RANITIDINE 150 MG TAB PO ×2 (08:52→22:27)
[2017-06-26] MEDS: FUROSEMIDE 20 MG TAB PO (08:53)
[2017-06-26] MEDS: METOPROLOL (XL) 100 MG TAB PO ×2 (08:54→22:28)
[2017-06-26 08:55] LABS: ALANINE AMINOTRANSFERASE 35 IU/L (13-69); ALBUMIN 2.9 g/dl (3.3-4.9); ALBUMIN/GLOBULIN RATIO 0.63; ALKALINE PHOSPHATASE 250 IU/L (42-121); ANION GAP 16 (8-16); ASPARTATE AMINO TRANSFERASE 77 IU/L (15-46); BILIRUBIN,INDIRECT 0.7 mg/dl (0-1.1); BILIRUBIN,TOTAL 0.7 mg/dl (0.2-1.3); BLOOD UREA NITROGEN 37 mg/dl (7-20); CALCIUM 8.6 mg/dl (8.4-10.2); CARBON DIOXIDE 21 mmol/L (21-31); CHLORIDE 106 mmol/L (97-110); CREATININE 1.58 mg/dl (0.44-1.00); GLUCOSE 310 mg/dl (70-220); MAGNESIUM 1.7 mg/dl (1.7-2.5); POTASSIUM 5.6 mmol/L (3.5-5.1); SODIUM 137 mmol/L (135-144); TOTAL PROTEIN 7.5 g/dl (6.1-8.1)
[2017-06-26] MEDS: FUROSEMIDE 20 MG INJ IV (08:58)
[2017-06-26] MEDS: METHYLPREDNISOLONE 125 MG INJ IV ×2 (09:03→22:29)
[2017-06-26] MEDS: SENNA TAB PO (21:00)
[2017-06-26] MEDS: PRAMIPEXOLE 0.125 MG TAB PO (22:27)
[2017-06-27] MEDS: LEVALBUTEROL (NEB) 1.25 MG/0.5 ML AMP HHN ×2 (01:58→04:52)
[2017-06-27 05:52] LABS: WHITE BLOOD COUNT 7.9 10^3/ul (4.8-10.8)
[2017-06-27 05:52] LABS: ADD MAN DIFF? NO; BASOPHILS % 0.1 % (0.0-2.0); HEMATOCRIT 28.6 % (37.0-47.0); HEMOGLOBIN 9.3 g/dl (12.0-16.0); LYMPHOCYTES # 1.3 10^3/ul (0.8-2.9); LYMPHOCYTES % 16.5 % (15.0-51.0); MEAN CORPUSCULAR HEMOGLOBIN 29.5 pg (29.0-33.0); MEAN CORPUSCULAR HGB CONC 32.5 g/dl (32.0-37.0); MEAN CORPUSCULAR VOLUME 90.8 fl (82.0-101.0); MEAN PLATELET VOLUME 10.2 fl (7.4-10.4); MONOCYTE # 0.5 10^3/ul (0.3-0.9); MONOCYTES % 6.5 % (0.0-11.0); NEUTROPHILS % 76.1 % (39.0-77.0); NUCLEATED RED BLOOD CELLS% 0.5 /100WBC (0.0-0.0); PLATELET COUNT 233 10^3/UL (140-415); RED BLOOD COUNT 3.15 10^6/ul (4.20-5.40); RED CELL DISTRIBUTION WIDTH 18.6 % (11.5-14.5)
[2017-06-27] MEDS: PIPER-TAZO 3.375 GM IV (PMX) 100 ML IVPB ×3 (06:16→21:08)
[2017-06-27] MEDS: PANTOPRAZOLE (EC) 40 MG TAB PO ×2 (06:16→17:13)
[2017-06-27 06:33] LABS: ANION GAP 15 (8-16); BLOOD UREA NITROGEN 43 mg/dl (7-20); CALCIUM 9.2 mg/dl (8.4-10.2); CARBON DIOXIDE 22 mmol/L (21-31); CHLORIDE 108 mmol/L (97-110); CREATININE 1.82 mg/dl (0.44-1.00); GLUCOSE 236 mg/dl (70-220); MAGNESIUM 1.7 mg/dl (1.7-2.5); POTASSIUM 5.1 mmol/L (3.5-5.1); SODIUM 140 mmol/L (135-144)
[2017-06-27] MEDS: PT'S OWN INSULIN PUMP SC ×4 (07:30→21:04)
[2017-06-27] MEDS: NYSTATIN 30 GM POWDER BTL TOP ×3 (09:00→21:08)
[2017-06-27] MEDS: FUROSEMIDE 20 MG TAB PO (09:00)
[2017-06-27] MEDS: ALBUTEROL/IPRATROPIUM (NEB) 3 ML AMP HHN ×4 (09:04→20:01)
[2017-06-27] MEDS: METHYLPREDNISOLONE 125 MG INJ IV ×2 (09:56→21:06)
[2017-06-27] MEDS: FLUTICASONE 0.05% 16 GM NAS SPRAY NASAL ×2 (09:57→21:10)
[2017-06-27] MEDS: GABAPENTIN 100 MG CAP PO ×3 (09:58→21:05)
[2017-06-27] MEDS: MAGNESIUM SULFATE 2 GM/50 ML 50 ML IVPB (09:59)
[2017-06-27] MEDS: METOPROLOL (XL) 100 MG TAB PO ×2 (09:59→21:06)
[2017-06-27] MEDS: RANITIDINE 150 MG TAB PO ×2 (09:59→21:05)
[2017-06-27] MEDS: BENZONATATE 100 MG CAP PO (12:20)
[2017-06-27] MEDS: SENNA TAB PO (21:00)
[2017-06-27] MEDS: SYMBICORT 160/4.5 INH (21:05)
[2017-06-27] MEDS: PRAMIPEXOLE 0.125 MG TAB PO (21:05)
[2017-06-27] MEDS: HYDROCODONE/APAP (5/325) TAB PO (23:01)
[2017-06-28] MEDS: ALBUTEROL/IPRATROPIUM (NEB) 3 ML AMP HHN ×6 (00:09→20:49)
[2017-06-28] MEDS: ACETAMINOPHEN 325 MG TAB PO ×2 (02:28→08:37)
[2017-06-28 05:07] LABS: ADD MAN DIFF? NO
[2017-06-28] MEDS: RACEPINEPHRINE 2.25%(NEB) 0.5 ML AMP HHN (05:10)
[2017-06-28 05:13] LABS: HEMATOCRIT 29.3 % (37.0-47.0); HEMOGLOBIN 9.6 g/dl (12.0-16.0); LYMPHOCYTES # 1.3 10^3/ul (0.8-2.9); LYMPHOCYTES % 15.3 % (15.0-51.0); MEAN CORPUSCULAR HGB CONC 32.8 g/dl (32.0-37.0); MEAN CORPUSCULAR VOLUME 91.6 fl (82.0-101.0); MONOCYTE # 0.7 10^3/ul (0.3-0.9); MONOCYTES % 7.5 % (0.0-11.0); NEUTROPHIL # 6.6 10^3/ul (1.6-7.5); NEUTROPHILS % 76.2 % (39.0-77.0); PLATELET COUNT 273 10^3/UL (140-415); RED CELL DISTRIBUTION WIDTH 18.6 % (11.5-14.5)
[2017-06-28 05:13] LABS: WHITE BLOOD COUNT 8.6 10^3/ul (4.8-10.8)
[2017-06-28] MEDS: PANTOPRAZOLE (EC) 40 MG TAB PO ×2 (05:25→17:13)
[2017-06-28] MEDS: PIPER-TAZO 3.375 GM IV (PMX) 100 ML IVPB ×3 (05:25→21:43)
[2017-06-28 05:29] LABS: ANION GAP 12 (8-16); BLOOD UREA NITROGEN 54 mg/dl (7-20); CALCIUM 9.4 mg/dl (8.4-10.2); CARBON DIOXIDE 26 mmol/L (21-31); CHLORIDE 108 mmol/L (97-110); CREATININE 1.78 mg/dl (0.44-1.00); GLUCOSE 219 mg/dl (70-220); MAGNESIUM 2.4 mg/dl (1.7-2.5); POTASSIUM 5.2 mmol/L (3.5-5.1); SODIUM 141 mmol/L (135-144)
[2017-06-28] MEDS: PT'S OWN INSULIN PUMP SC ×3 (07:54→19:55)
[2017-06-28] MEDS: FUROSEMIDE 20 MG TAB PO (08:24)
[2017-06-28] MEDS: SYMBICORT 160/4.5 INH ×2 (08:24→21:32)
[2017-06-28] MEDS: RANITIDINE 150 MG TAB PO ×2 (08:24→21:33)
[2017-06-28] MEDS: GABAPENTIN 100 MG CAP PO ×3 (08:24→21:33)
[2017-06-28] MEDS: METOPROLOL (XL) 100 MG TAB PO ×2 (08:24→21:42)
[2017-06-28] MEDS: METHYLPREDNISOLONE 125 MG INJ IV (08:25)
[2017-06-28] MEDS: FLUTICASONE 0.05% 16 GM NAS SPRAY NASAL ×2 (08:31→21:34)
[2017-06-28] MEDS: NYSTATIN 30 GM POWDER BTL TOP ×2 (08:31→21:34)
[2017-06-28] MEDS: BUDESONIDE (NEB) 0.5MG/2ML AMP HHN ×2 (12:00→20:49)
[2017-06-28] MEDS: METHYLPREDNISOLONE 40 MG INJ IV ×2 (12:16→17:13)
[2017-06-28] MEDS: SENNA TAB PO (21:32)
[2017-06-28] MEDS: PRAMIPEXOLE 0.125 MG TAB PO (21:33)
[2017-06-28] MEDS: HYDROCODONE/APAP (5/325) TAB PO (21:48)
[2017-06-29] MEDS: ALBUTEROL/IPRATROPIUM (NEB) 3 ML AMP HHN ×6 (01:07→22:23)
[2017-06-29] MEDS: METHYLPREDNISOLONE 40 MG INJ IV ×5 (01:38→23:06)
[2017-06-29] MEDS: HYDROCODONE/APAP (5/325) TAB PO ×2 (01:47→23:12)
[2017-06-29] MEDS: PANTOPRAZOLE (EC) 40 MG TAB PO ×2 (06:03→17:32)
[2017-06-29] MEDS: PIPER-TAZO 3.375 GM IV (PMX) 100 ML IVPB ×3 (06:04→22:46)
[2017-06-29 06:24] LABS: ADD MAN DIFF? NO
[2017-06-29 06:35] LABS: HEMATOCRIT 29.4 % (37.0-47.0); HEMOGLOBIN 9.6 g/dl (12.0-16.0); LYMPHOCYTES # 0.9 10^3/ul (0.8-2.9); LYMPHOCYTES % 11.8 % (15.0-51.0); MEAN CORPUSCULAR HGB CONC 32.7 g/dl (32.0-37.0); MEAN CORPUSCULAR VOLUME 91.9 fl (82.0-101.0); MEAN PLATELET VOLUME 10.1 fl (7.4-10.4); MONOCYTE # 0.6 10^3/ul (0.3-0.9); MONOCYTES % 7.7 % (0.0-11.0); NEUTROPHIL # 5.8 10^3/ul (1.6-7.5); NUCLEATED RED BLOOD CELLS% 0.3 /100WBC (0.0-0.0); PLATELET COUNT 268 10^3/UL (140-415); RED CELL DISTRIBUTION WIDTH 18.3 % (11.5-14.5)
[2017-06-29 06:35] LABS: WHITE BLOOD COUNT 7.4 10^3/ul (4.8-10.8)
[2017-06-29 06:47] LABS: ANION GAP 14 (8-16); BLOOD UREA NITROGEN 61 mg/dl (7-20); CALCIUM 9.2 mg/dl (8.4-10.2); CARBON DIOXIDE 23 mmol/L (21-31); CHLORIDE 108 mmol/L (97-110); CREATININE 1.88 mg/dl (0.44-1.00); GLUCOSE 293 mg/dl (70-220); MAGNESIUM 2.2 mg/dl (1.7-2.5); POTASSIUM 4.8 mmol/L (3.5-5.1); SODIUM 140 mmol/L (135-144)
[2017-06-29] MEDS: FUROSEMIDE 20 MG TAB PO (08:45)
[2017-06-29] MEDS: SYMBICORT 160/4.5 INH ×2 (08:45→20:38)
[2017-06-29] MEDS: METOPROLOL (XL) 100 MG TAB PO ×2 (08:45→20:39)
[2017-06-29] MEDS: RANITIDINE 150 MG TAB PO ×2 (08:45→20:39)
[2017-06-29] MEDS: GABAPENTIN 100 MG CAP PO ×3 (08:46→20:39)
[2017-06-29] MEDS: FLUTICASONE 0.05% 16 GM NAS SPRAY NASAL ×2 (08:47→20:40)
[2017-06-29] MEDS: NYSTATIN 30 GM POWDER BTL TOP ×2 (08:47→20:40)
[2017-06-29] MEDS: BUDESONIDE (NEB) 0.5MG/2ML AMP HHN ×2 (09:23→22:23)
[2017-06-29] MEDS: ENOXAPARIN 30 MG/0.3 ML SYG SC (09:30)
[2017-06-29] MEDS: PT'S OWN INSULIN PUMP SC ×3 (10:39→20:29)
[2017-06-29] MEDS: PRAMIPEXOLE 0.125 MG TAB PO (20:38)
[2017-06-29] MEDS: SENNA TAB PO (20:45)
[2017-06-29] MEDS ORDERED: VITAMIN A & D 5 GM OINT PACKET TOP (22:44)
[2017-06-29] MEDS: SOD CHLORIDE 0.9% 1,000 ML IV (23:00)
[2017-06-30] MEDS: INSULIN GLARGINE [LANtus] 3 ML PEN SC ×2 (00:16→20:09)
[2017-06-30] MEDS: ALBUTEROL/IPRATROPIUM (NEB) 3 ML AMP HHN ×6 (02:08→20:37)
[2017-06-30 06:03] LABS: ADD MAN DIFF? NO
[2017-06-30] MEDS: PANTOPRAZOLE (EC) 40 MG TAB PO ×2 (06:05→18:00)
[2017-06-30] MEDS: METHYLPREDNISOLONE 40 MG INJ IV ×3 (06:05→18:12)
[2017-06-30 06:06] LABS: HEMATOCRIT 29.9 % (37.0-47.0); HEMOGLOBIN 9.8 g/dl (12.0-16.0); LYMPHOCYTES # 0.9 10^3/ul (0.8-2.9); LYMPHOCYTES % 8.9 % (15.0-51.0); MEAN CORPUSCULAR HGB CONC 32.8 g/dl (32.0-37.0); MEAN CORPUSCULAR VOLUME 91.4 fl (82.0-101.0); MEAN PLATELET VOLUME 10.1 fl (7.4-10.4); MONOCYTE # 0.9 10^3/ul (0.3-0.9); NEUTROPHIL # 8.3 10^3/ul (1.6-7.5); NEUTROPHILS % 79.8 % (39.0-77.0); NUCLEATED RED BLOOD CELLS% 0.4 /100WBC (0.0-0.0); PLATELET COUNT 262 10^3/UL (140-415); RED BLOOD COUNT 3.27 10^6/ul (4.20-5.40)
[2017-06-30 06:06] LABS: WHITE BLOOD COUNT 10.4 10^3/ul (4.8-10.8)
[2017-06-30 06:22] LABS: ANION GAP 13 (8-16); BLOOD UREA NITROGEN 67 mg/dl (7-20); CALCIUM 9.1 mg/dl (8.4-10.2); CARBON DIOXIDE 22 mmol/L (21-31); CHLORIDE 110 mmol/L (97-110); CREATININE 1.94 mg/dl (0.44-1.00); GLUCOSE 227 mg/dl (70-220); POTASSIUM 4.9 mmol/L (3.5-5.1); SODIUM 140 mmol/L (135-144)
[2017-06-30] MEDS: PT'S OWN INSULIN PUMP SC ×4 (09:00→21:00)
[2017-06-30] MEDS: GABAPENTIN 100 MG CAP PO ×3 (09:01→20:49)
[2017-06-30] MEDS: RANITIDINE 150 MG TAB PO ×2 (09:02→20:49)
[2017-06-30] MEDS: METOPROLOL (XL) 100 MG TAB PO ×2 (09:02→20:55)
[2017-06-30] MEDS: BUDESONIDE (NEB) 0.5MG/2ML AMP HHN ×2 (09:02→20:37)
[2017-06-30] MEDS: FUROSEMIDE 20 MG TAB PO (09:02)
[2017-06-30] MEDS: NYSTATIN 30 GM POWDER BTL TOP ×2 (09:56→20:56)
[2017-06-30] MEDS: FLUTICASONE 0.05% 16 GM NAS SPRAY NASAL ×2 (09:56→20:54)
[2017-06-30] MEDS: SYMBICORT 160/4.5 INH ×2 (09:59→20:54)
[2017-06-30] MEDS: SOD CHLORIDE 0.9% 1,000 ML IV (12:29)
[2017-06-30] MEDS: HYDROCODONE/APAP (5/325) TAB PO ×2 (14:03→16:10)
[2017-06-30] MEDS: PRAMIPEXOLE 0.125 MG TAB PO (20:49)
[2017-06-30] MEDS: SENNA TAB PO (20:50)
[2017-07-01] MEDS: METHYLPREDNISOLONE 40 MG INJ IV ×2 (00:19→06:05)
[2017-07-01] MEDS: ALBUTEROL/IPRATROPIUM (NEB) 3 ML AMP HHN ×6 (01:24→21:07)
[2017-07-01] MEDS: HYDROCODONE/APAP (5/325) TAB PO (03:34)
[2017-07-01] MEDS: PANTOPRAZOLE (EC) 40 MG TAB PO ×2 (06:06→17:41)
[2017-07-01 06:51] LABS: ADD MAN DIFF? NO
[2017-07-01 07:04] LABS: WHITE BLOOD COUNT 9.5 10^3/ul (4.8-10.8)
[2017-07-01 07:04] LABS: BASOPHILS % 0.1 % (0.0-2.0); HEMATOCRIT 30.6 % (37.0-47.0); HEMOGLOBIN 10.1 g/dl (12.0-16.0); LYMPHOCYTES # 0.9 10^3/ul (0.8-2.9); LYMPHOCYTES % 9.4 % (15.0-51.0); MEAN CORPUSCULAR HEMOGLOBIN 30.1 pg (29.0-33.0); MEAN CORPUSCULAR VOLUME 91.1 fl (82.0-101.0); MEAN PLATELET VOLUME 9.8 fl (7.4-10.4); MONOCYTE # 0.6 10^3/ul (0.3-0.9); MONOCYTES % 5.9 % (0.0-11.0); NEUTROPHIL # 7.7 10^3/ul (1.6-7.5); NEUTROPHILS % 81.5 % (39.0-77.0); NUCLEATED RED BLOOD CELLS # 0.1 10^3/ul (0.0-0.0); NUCLEATED RED BLOOD CELLS% 0.6 /100WBC (0.0-0.0); PLATELET COUNT 305 10^3/UL (140-415); RED BLOOD COUNT 3.36 10^6/ul (4.20-5.40)
[2017-07-01 07:17] LABS: ANION GAP 13 (8-16); BLOOD UREA NITROGEN 75 mg/dl (7-20); CALCIUM 8.8 mg/dl (8.4-10.2); CARBON DIOXIDE 22 mmol/L (21-31); CHLORIDE 111 mmol/L (97-110); CREATININE 1.98 mg/dl (0.44-1.00); GLUCOSE 141 mg/dl (70-220); MAGNESIUM 2.2 mg/dl (1.7-2.5); POTASSIUM 5.1 mmol/L (3.5-5.1); SODIUM 141 mmol/L (135-144)
[2017-07-01] MEDS: PT'S OWN INSULIN PUMP SC ×5 (07:30→21:00)
[2017-07-01] MEDS: SOD CHLORIDE 0.9% 1,000 ML IV (08:14)
[2017-07-01] MEDS: SYMBICORT 160/4.5 INH ×2 (08:46→21:23)
[2017-07-01] MEDS: GABAPENTIN 100 MG CAP PO ×3 (08:46→21:21)
[2017-07-01] MEDS: RANITIDINE 150 MG TAB PO ×2 (08:47→21:21)
[2017-07-01] MEDS: METOPROLOL (XL) 100 MG TAB PO ×2 (08:47→21:21)
[2017-07-01] MEDS: FUROSEMIDE 20 MG TAB PO (08:47)
[2017-07-01] MEDS: NYSTATIN 30 GM POWDER BTL TOP ×2 (08:56→21:23)
[2017-07-01] MEDS: FLUTICASONE 0.05% 16 GM NAS SPRAY NASAL ×2 (08:56→21:24)
[2017-07-01] MEDS: BUDESONIDE (NEB) 0.5MG/2ML AMP HHN ×2 (09:50→21:07)
[2017-07-01] MEDS: ONDANSETRON 4 MG INJ IV (12:59)
[2017-07-01 15:37] LABS: AADO2 Arterial 33.4 mmHg (7.0-24.0); Allen Test ACCEPTAB; Arterial Base Excess -5.6 mmol/L (-3.0-3); Arterial Blood Gas Oxygen Sat 98.4 mmHG (95.0-100.0); Arterial COHb 0.1 % (0.0-3.0); Arterial Fraction of Oxyhgb 98.1 % (93.0-99.0); Arterial HCO3 20.3 mmol/L (22.0-26.0); Arterial MetHb 0.2 % (0.0-1.5); Arterial Total Hemglobin 12.1 g/dl (12.0-18.0); Arterial pCO2 41.2 mmhg (35-45); MODE NASAL CANNULA; Site Right Brachial
[2017-07-01] MEDS: FUROSEMIDE 20 MG INJ IV (18:21)
[2017-07-01] MEDS: INSULIN GLARGINE [LANtus] 3 ML PEN SC (20:24)
[2017-07-01] MEDS: SENNA TAB PO (21:20)
[2017-07-01] MEDS: MONTELUKAST 10 MG TAB PO (21:21)
[2017-07-01] MEDS: PRAMIPEXOLE 0.125 MG TAB PO (21:21)
[2017-07-02] MEDS: ALBUTEROL/IPRATROPIUM (NEB) 3 ML AMP HHN ×3 (00:48→09:04)
[2017-07-02] MEDS: PANTOPRAZOLE (EC) 40 MG TAB PO ×3 (05:35→18:00)
[2017-07-02 05:36] LABS: ADD MAN DIFF? NO
[2017-07-02 05:41] LABS: BASOPHILS % 0.2 % (0.0-2.0); HEMATOCRIT 31.9 % (37.0-47.0); HEMOGLOBIN 10.4 g/dl (12.0-16.0); LYMPHOCYTES # 0.8 10^3/ul (0.8-2.9); LYMPHOCYTES % 8.4 % (15.0-51.0); MEAN CORPUSCULAR HEMOGLOBIN 29.7 pg (29.0-33.0); MEAN CORPUSCULAR HGB CONC 32.6 g/dl (32.0-37.0); MEAN CORPUSCULAR VOLUME 91.1 fl (82.0-101.0); MEAN PLATELET VOLUME 9.8 fl (7.4-10.4); MONOCYTE # 1.4 10^3/ul (0.3-0.9); NEUTROPHIL # 6.8 10^3/ul (1.6-7.5); NEUTROPHILS % 74.1 % (39.0-77.0); NUCLEATED RED BLOOD CELLS # 0.2 10^3/ul (0.0-0.0); NUCLEATED RED BLOOD CELLS% 1.6 /100WBC (0.0-0.0); PLATELET COUNT 319 10^3/UL (140-415); RED CELL DISTRIBUTION WIDTH 18.4 % (11.5-14.5)
[2017-07-02 05:41] LABS: WHITE BLOOD COUNT 9.1 10^3/ul (4.8-10.8)
[2017-07-02] MEDS ORDERED: DEXTROSE 50% 50 ML SYRINGE ×3 (06:04→07:17)
[2017-07-02 06:06] LABS: B-TYPE NATRIURETIC PEPTIDE 3990 PG/ML (0-125)
[2017-07-02 06:24] LABS: Allen Test ACCEPTAB; Arterial Base Excess -5.1 mmol/L (-3.0-3); Arterial Blood Gas Oxygen Sat 98.5 mmHG (95.0-100.0); Arterial COHb 0.3 % (0.0-3.0); Arterial Fraction of Oxyhgb 97.8 % (93.0-99.0); Arterial HCO3 21.5 mmol/L (22.0-26.0); Arterial MetHb 0.4 % (0.0-1.5); Arterial Total Hemglobin 11.1 g/dl (12.0-18.0); Arterial pCO2 46.8 mmhg (35-45); MODE NASAL CANNULA; Site Left Radial
[2017-07-02 07:05] LABS: MAGNESIUM 2.4 mg/dl (1.7-2.5)
[2017-07-02 07:06] LABS: ADD MAN DIFF? NO
[2017-07-02 07:12] LABS: ABNORMAL IP MESSAGE 1; BASOPHILS % 0.3 % (0.0-2.0); HEMATOCRIT 31.2 % (37.0-47.0); HEMOGLOBIN 10.1 g/dl (12.0-16.0); LYMPHOCYTES # 0.6 10^3/ul (0.8-2.9); LYMPHOCYTES % 7.1 % (15.0-51.0); MEAN CORPUSCULAR HEMOGLOBIN 30.1 pg (29.0-33.0); MEAN CORPUSCULAR HGB CONC 32.4 g/dl (32.0-37.0); MEAN CORPUSCULAR VOLUME 92.9 fl (82.0-101.0); MEAN PLATELET VOLUME 9.6 fl (7.4-10.4); MONOCYTE # 1.1 10^3/ul (0.3-0.9); MONOCYTES % 13.8 % (0.0-11.0); NEUTROPHILS % 76.5 % (39.0-77.0); NUCLEATED RED BLOOD CELLS # 0.1 10^3/ul (0.0-0.0); NUCLEATED RED BLOOD CELLS% 1.4 /100WBC (0.0-0.0); PLATELET COUNT 292 10^3/UL (140-415); RED BLOOD COUNT 3.36 10^6/ul (4.20-5.40); RED CELL DISTRIBUTION WIDTH 18.2 % (11.5-14.5)
[2017-07-02 07:12] LABS: WHITE BLOOD COUNT 7.9 10^3/ul (4.8-10.8)
[2017-07-02 07:13] LABS: POSITIVE DIFF @See below
[2017-07-02] MEDS ORDERED: ATROPINE 1 MG/10 ML SYRINGE (07:17)
[2017-07-02 07:33] LABS: ALANINE AMINOTRANSFERASE 49 IU/L (13-69); ALBUMIN 2.8 g/dl (3.3-4.9); ALBUMIN/GLOBULIN RATIO 0.63; ALKALINE PHOSPHATASE 133 IU/L (42-121); ANION GAP 14 (8-16); ASPARTATE AMINO TRANSFERASE 79 IU/L (15-46); BILIRUBIN,INDIRECT 0.2 mg/dl (0-1.1); BILIRUBIN,TOTAL 0.2 mg/dl (0.2-1.3); BLOOD UREA NITROGEN 83 mg/dl (7-20); CALCIUM 8.8 mg/dl (8.4-10.2); CARBON DIOXIDE 24 mmol/L (21-31); CHLORIDE 111 mmol/L (97-110); CREATININE 1.94 mg/dl (0.44-1.00); GLUCOSE 65 mg/dl (70-220); POTASSIUM 4.5 mmol/L (3.5-5.1); SODIUM 144 mmol/L (135-144); TOTAL PROTEIN 7.2 g/dl (6.1-8.1)
[2017-07-02 07:33] LABS: LACTIC ACID 1.4 mmol/L (0.5-2.0)
[2017-07-02 07:44] LABS: TROPONIN-I 0.012 ng/ml (0.00-0.12)
[2017-07-02] MEDS ORDERED: GLUCOSE GEL 15 GRAM TUBE BUCCAL (08:30)
[2017-07-02] MEDS ORDERED: GLUCOSE GEL 15 GRAM TUBE PO ×2 (08:30)
[2017-07-02] MEDS ORDERED: GLUCAGON 1 MG INJ IM (08:30)
[2017-07-02] MEDS: DEXTROSE 50% 50 ML SYRINGE IV ×6 (08:40→19:02)
[2017-07-02] MEDS: DEXTROSE 10% 1,000 ML IV ×2 (08:55→21:22)
[2017-07-02] MEDS: METOPROLOL (XL) 100 MG TAB PO ×2 (08:55→21:00)
[2017-07-02 08:56] LABS: Allen Test ACCEPTAB; Arterial Base Excess -5.2 mmol/L (-3.0-3); Arterial Blood Gas Oxygen Sat 99.3 mmHG (95.0-100.0); Arterial COHb 0.3 % (0.0-3.0); Arterial Fraction of Oxyhgb 98.7 % (93.0-99.0); Arterial HCO3 20.7 mmol/L (22.0-26.0); Arterial MetHb 0.3 % (0.0-1.5); Arterial Total Hemglobin 10.2 g/dl (12.0-18.0); Arterial pCO2 41.9 mmhg (35-45); Blood Gas IEPAP 15/5; Blood Gas PS 10; MODE MASK - BIPAP; Site Left Radial
[2017-07-02] MEDS: predniSONE 10 MG TAB PO (09:00)
[2017-07-02] MEDS: RANITIDINE 150 MG TAB PO ×2 (09:00→21:44)
[2017-07-02] MEDS: GABAPENTIN 100 MG CAP PO ×3 (09:00→21:33)
[2017-07-02] MEDS: SYMBICORT 160/4.5 INH ×2 (09:00→21:00)
[2017-07-02] MEDS: FUROSEMIDE 20 MG TAB PO (09:00)
[2017-07-02] MEDS: FLUTICASONE 0.05% 16 GM NAS SPRAY NASAL ×2 (09:00→21:00)
[2017-07-02] MEDS: BUDESONIDE (NEB) 0.5MG/2ML AMP HHN (09:05)
[2017-07-02] MEDS: PT'S OWN INSULIN PUMP SC (11:00)
[2017-07-02] MEDS: NYSTATIN 30 GM POWDER BTL TOP ×2 (11:24→21:00)
[2017-07-02] MEDS ORDERED: INSULIN ASPART [NOVOLOG] 3 ML PEN SC (11:30)
[2017-07-02 12:24] LABS: ANION GAP 12 (8-16); BLOOD UREA NITROGEN 84 mg/dl (7-20); CALCIUM 8.7 mg/dl (8.4-10.2); CARBON DIOXIDE 23 mmol/L (21-31); CHLORIDE 113 mmol/L (97-110); CREATININE 1.81 mg/dl (0.44-1.00); GLUCOSE 66 mg/dl (70-220); POTASSIUM 4.6 mmol/L (3.5-5.1); SODIUM 143 mmol/L (135-144)
[2017-07-02] MEDS ORDERED: NORepinephrine 8MG/250 ML (PMX 250 ML (12:37)
[2017-07-02 12:38] LABS: CREATINE KINASE 52 IU/L (23-200); PHOSPHORUS 4.7 mg/dl (2.5-4.9)
[2017-07-02 12:38] LABS: MAGNESIUM 2.3 mg/dl (1.7-2.5)
[2017-07-02] MEDS ORDERED: PROPOFOL 100 ML (12:38)
[2017-07-02] MEDS: PROPOFOL 100 ML IV ×2 (14:01→22:40)
[2017-07-02] MEDS: IPRATROPIUM (HFA) 12.9 GM INHALER INH ×2 (14:04→19:41)
[2017-07-02] MEDS: ALBUTEROL HFA 8 GM INHALER INH ×2 (14:04→19:41)
[2017-07-02] MEDS: LEVETIRACETAM 1000 MG (PMX) 100 ML IVPB ×2 (14:38→21:00)
[2017-07-02 15:00] LABS: AADO2 Arterial 231.9 mmHg (7.0-24.0); Allen Test ACCEPTAB; Arterial Base Excess -2.2 mmol/L (-3.0-3); Arterial Blood Gas Oxygen Sat 99.6 mmHG (95.0-100.0); Arterial COHb 0.3 % (0.0-3.0); Arterial Fraction of Oxyhgb 98.8 % (93.0-99.0); Arterial HCO3 20.1 mmol/L (22.0-26.0); Arterial MetHb 0.5 % (0.0-1.5); Arterial Total Hemglobin 10.4 g/dl (12.0-18.0); Arterial pCO2 26.6 mmhg (35-45); MODE VENT - AC; Site Right Radial
[2017-07-02] MEDS: PANTOPRAZOLE 40 MG INJ IV (18:16)
[2017-07-02] MEDS: PRAMIPEXOLE 0.125 MG TAB PO (21:00)
[2017-07-02] MEDS: MONTELUKAST 10 MG TAB PO (21:33)
[2017-07-02] MEDS: SENNA TAB PO (21:34)
[2017-07-03] MEDS: IPRATROPIUM (HFA) 12.9 GM INHALER INH ×4 (01:24→19:14)
[2017-07-03] MEDS: ALBUTEROL HFA 8 GM INHALER INH ×4 (01:24→19:14)
[2017-07-03] MEDS: PROPOFOL 100 ML IV ×3 (04:00→20:49)
[2017-07-03 05:52] LABS: ADD MAN DIFF? NO
[2017-07-03 05:58] LABS: HEMATOCRIT 28.4 % (37.0-47.0); HEMOGLOBIN 9.7 g/dl (12.0-16.0); LYMPHOCYTES # 0.8 10^3/ul (0.8-2.9); LYMPHOCYTES % 7.7 % (15.0-51.0); MEAN CORPUSCULAR HGB CONC 34.2 g/dl (32.0-37.0); MEAN CORPUSCULAR VOLUME 87.9 fl (82.0-101.0); MEAN PLATELET VOLUME 10.1 fl (7.4-10.4); MONOCYTE # 1.1 10^3/ul (0.3-0.9); MONOCYTES % 11.4 % (0.0-11.0); NEUTROPHIL # 7.9 10^3/ul (1.6-7.5); NEUTROPHILS % 79.8 % (39.0-77.0); NUCLEATED RED BLOOD CELLS # 0.1 10^3/ul (0.0-0.0); NUCLEATED RED BLOOD CELLS% 0.7 /100WBC (0.0-0.0); PLATELET COUNT 198 10^3/UL (140-415); RED BLOOD COUNT 3.23 10^6/ul (4.20-5.40)
[2017-07-03 05:58] LABS: WHITE BLOOD COUNT 9.9 10^3/ul (4.8-10.8)
[2017-07-03] MEDS: PANTOPRAZOLE 40 MG INJ IV ×2 (06:24→17:51)
[2017-07-03 06:38] LABS: ANION GAP 15 (8-16); BLOOD UREA NITROGEN 77 mg/dl (7-20); CALCIUM 8.4 mg/dl (8.4-10.2); CARBON DIOXIDE 20 mmol/L (21-31); CHLORIDE 110 mmol/L (97-110); CREATININE 1.75 mg/dl (0.44-1.00); GLUCOSE 125 mg/dl (70-220); MAGNESIUM 2.2 mg/dl (1.7-2.5); POTASSIUM 4.5 mmol/L (3.5-5.1); SODIUM 140 mmol/L (135-144)
[2017-07-03 08:51] LABS: AADO2 Arterial 66.3 mmHg (7.0-24.0); Allen Test ACCEPTAB; Arterial Base Excess -1.6 mmol/L (-3.0-3); Arterial Blood Gas Oxygen Sat 98.3 mmHG (95.0-100.0); Arterial COHb 0.3 % (0.0-3.0); Arterial Fraction of Oxyhgb 97.7 % (93.0-99.0); Arterial HCO3 20.1 mmol/L (22.0-26.0); Arterial MetHb 0.3 % (0.0-1.5); Arterial Total Hemglobin 10.6 g/dl (12.0-18.0); MODE VENT - AC; Site Left Radial
[2017-07-03] MEDS: FLUTICASONE 0.05% 16 GM NAS SPRAY NASAL ×2 (09:00→20:28)
[2017-07-03] MEDS: SYMBICORT 160/4.5 INH ×2 (09:00→21:03)
[2017-07-03] MEDS: RANITIDINE 150 MG TAB PO ×2 (09:34→20:51)
[2017-07-03] MEDS: FUROSEMIDE 20 MG TAB PO (09:34)
[2017-07-03] MEDS: LEVETIRACETAM 1000 MG (PMX) 100 ML IVPB ×3 (09:35→20:51)
[2017-07-03] MEDS: GABAPENTIN 100 MG CAP PO ×3 (09:35→20:51)
[2017-07-03] MEDS: DEXTROSE 10% 1,000 ML IV ×3 (09:35→23:18)
[2017-07-03] MEDS: predniSONE 10 MG TAB PO (09:36)
[2017-07-03] MEDS: METOPROLOL (XL) 100 MG TAB PO ×2 (12:02→21:00)
[2017-07-03] MEDS: NYSTATIN 30 GM POWDER BTL TOP ×2 (12:02→20:55)
[2017-07-03 12:15] LABS: ANION GAP 13 (8-16); BLOOD UREA NITROGEN 77 mg/dl (7-20); CALCIUM 8.4 mg/dl (8.4-10.2); CARBON DIOXIDE 22 mmol/L (21-31); CHLORIDE 109 mmol/L (97-110); CREATININE 1.76 mg/dl (0.44-1.00); GLUCOSE 186 mg/dl (70-220); POTASSIUM 4.7 mmol/L (3.5-5.1); SODIUM 139 mmol/L (135-144)
[2017-07-03] MEDS: ACCU-CHEK XX ×11 (13:00→23:04)
[2017-07-03] MEDS ORDERED: DEXTROSE 50% 50 ML SYRINGE IV ×2 (13:00)
[2017-07-03] MEDS: INSULIN HUMAN REGULAR 100 UNIT in SOD CHLORIDE 0.9% 99 ML IV ×2 (14:33→22:23)
[2017-07-03] MEDS: PRAMIPEXOLE 0.125 MG TAB PO (20:51)
[2017-07-03] MEDS: MONTELUKAST 10 MG TAB PO (20:51)
[2017-07-03] MEDS: SENNA TAB PO (20:51)
[2017-07-04] MEDS: ACCU-CHEK XX ×24 (00:25→23:14)
[2017-07-04] MEDS: METOPROLOL 100 MG TAB GTB ×3 (00:25→21:18)
[2017-07-04] MEDS: IPRATROPIUM (HFA) 12.9 GM INHALER INH ×4 (01:09→19:50)
[2017-07-04] MEDS: ALBUTEROL HFA 8 GM INHALER INH ×4 (01:10→19:50)
[2017-07-04] MEDS: PROPOFOL 100 ML IV ×4 (01:33→14:07)
[2017-07-04 04:57] LABS: ADD MAN DIFF? NO
[2017-07-04 05:04] LABS: ABNORMAL IP MESSAGE 1; BASOPHILS % 0.1 % (0.0-2.0); EOSINOPHILS # 0.1 10^3/ul (0.0-0.5); EOSINOPHILS % 0.5 % (0.0-7.0); HEMOGLOBIN 9.9 g/dl (12.0-16.0); LYMPHOCYTES # 1.3 10^3/ul (0.8-2.9); LYMPHOCYTES % 7.3 % (15.0-51.0); MEAN CORPUSCULAR HEMOGLOBIN 30.6 pg (29.0-33.0); MEAN CORPUSCULAR HGB CONC 34.1 g/dl (32.0-37.0); MEAN CORPUSCULAR VOLUME 89.5 fl (82.0-101.0); MEAN PLATELET VOLUME 10.1 fl (7.4-10.4); MONOCYTE # 2.1 10^3/ul (0.3-0.9); MONOCYTES % 12.4 % (0.0-11.0); NEUTROPHIL # 13.7 10^3/ul (1.6-7.5); NEUTROPHILS % 78.8 % (39.0-77.0); NUCLEATED RED BLOOD CELLS # 0.1 10^3/ul (0.0-0.0); NUCLEATED RED BLOOD CELLS% 0.5 /100WBC (0.0-0.0); PLATELET COUNT 217 10^3/UL (140-415); RED BLOOD COUNT 3.24 10^6/ul (4.20-5.40); RED CELL DISTRIBUTION WIDTH 18.4 % (11.5-14.5)
[2017-07-04 05:04] LABS: WHITE BLOOD COUNT 17.3 10^3/ul (4.8-10.8)
[2017-07-04 05:14] LABS: POSITIVE DIFF @See below
[2017-07-04] MEDS: PANTOPRAZOLE 40 MG INJ IV ×2 (05:19→17:59)
[2017-07-04 05:23] LABS: ALANINE AMINOTRANSFERASE 76 IU/L (13-69); ALBUMIN 2.3 g/dl (3.3-4.9); ALKALINE PHOSPHATASE 160 IU/L (42-121); ANION GAP 11 (8-16); ASPARTATE AMINO TRANSFERASE 121 IU/L (15-46); BILIRUBIN,INDIRECT 0.6 mg/dl (0-1.1); BILIRUBIN,TOTAL 0.6 mg/dl (0.2-1.3); BLOOD UREA NITROGEN 81 mg/dl (7-20); CALCIUM 8.2 mg/dl (8.4-10.2); CARBON DIOXIDE 24 mmol/L (21-31); CHLORIDE 110 mmol/L (97-110); GLUCOSE 131 mg/dl (70-220); MAGNESIUM 2.2 mg/dl (1.7-2.5); PHOSPHORUS 3.1 mg/dl (2.5-4.9); POTASSIUM 4.9 mmol/L (3.5-5.1); SODIUM 140 mmol/L (135-144); TOTAL PROTEIN 6.1 g/dl (6.1-8.1)
[2017-07-04 08:27] LABS: AADO2 Arterial 45.2 mmHg (7.0-24.0); Allen Test ACCEPTAB; Arterial Base Excess -1.2 mmol/L (-3.0-3); Arterial Blood Gas Oxygen Sat 98.7 mmHG (95.0-100.0); Arterial COHb 0.4 % (0.0-3.0); Arterial Fraction of Oxyhgb 97.9 % (93.0-99.0); Arterial HCO3 20.3 mmol/L (22.0-26.0); Arterial MetHb 0.4 % (0.0-1.5); Arterial Total Hemglobin 14.3 g/dl (12.0-18.0); Arterial pCO2 26.2 mmhg (35-45); MODE VENT - AC; Site Left Radial
[2017-07-04] MEDS: SYMBICORT 160/4.5 INH ×2 (09:00→21:00)
[2017-07-04] MEDS: FLUTICASONE 0.05% 16 GM NAS SPRAY NASAL ×2 (09:00→21:00)
[2017-07-04] MEDS ORDERED: ENOXAPARIN 30 MG/0.3 ML SYG SC (09:00)
[2017-07-04] MEDS: FUROSEMIDE 20 MG INJ IV (10:19)
[2017-07-04] MEDS: RANITIDINE 150 MG TAB PO ×2 (10:19→21:17)
[2017-07-04] MEDS: FUROSEMIDE 20 MG TAB PO (10:20)
[2017-07-04] MEDS: predniSONE 10 MG TAB PO (10:20)
[2017-07-04] MEDS: GABAPENTIN 100 MG CAP PO ×3 (10:20→21:17)
[2017-07-04] MEDS: LEVETIRACETAM 1000 MG (PMX) 100 ML IVPB (10:21)
[2017-07-04] MEDS: NYSTATIN 30 GM POWDER BTL TOP ×2 (10:21→21:19)
[2017-07-04] MEDS: INSULIN HUMAN REGULAR 100 UNIT in SOD CHLORIDE 0.9% 99 ML IV (14:08)
[2017-07-04] MEDS: LIDOCAINE 1% (MPF) 5 ML VIAL SC (14:30)
[2017-07-04] MEDS: SOD CHLORIDE 0.9% 100 ML (14:45)
[2017-07-04] MEDS: DEXTROSE 10% 1,000 ML IV ×2 (16:11→18:28)
[2017-07-04] MEDS: MONTELUKAST 10 MG TAB PO (21:17)
[2017-07-04] MEDS: PRAMIPEXOLE 0.125 MG TAB PO (21:17)
[2017-07-04] MEDS: SENNA TAB PO (21:18)
[2017-07-05] MEDS: ACCU-CHEK XX ×25 (00:04→23:56)
[2017-07-05] MEDS: INSULIN HUMAN REGULAR 100 UNIT in SOD CHLORIDE 0.9% 99 ML IV ×2 (01:13→19:26)
[2017-07-05] MEDS: IPRATROPIUM (HFA) 12.9 GM INHALER INH ×4 (01:50→19:49)
[2017-07-05] MEDS: ALBUTEROL HFA 8 GM INHALER INH ×4 (01:50→19:49)
[2017-07-05] MEDS: PROPOFOL 100 ML IV ×2 (03:07→21:11)
[2017-07-05] MEDS: PANTOPRAZOLE 40 MG INJ IV ×2 (05:34→18:10)
[2017-07-05 06:28] LABS: ADD MAN DIFF? NO
[2017-07-05 06:35] LABS: WHITE BLOOD COUNT 19.4 10^3/ul (4.8-10.8)
[2017-07-05 06:35] LABS: ABNORMAL IP MESSAGE 1; BASOPHILS % 0.1 % (0.0-2.0); EOSINOPHILS # 0.3 10^3/ul (0.0-0.5); EOSINOPHILS % 1.6 % (0.0-7.0); HEMATOCRIT 29.6 % (37.0-47.0); LYMPHOCYTES # 1.5 10^3/ul (0.8-2.9); LYMPHOCYTES % 7.9 % (15.0-51.0); MEAN CORPUSCULAR HEMOGLOBIN 30.4 pg (29.0-33.0); MEAN CORPUSCULAR HGB CONC 33.8 g/dl (32.0-37.0); MEAN PLATELET VOLUME 10.9 fl (7.4-10.4); MONOCYTE # 2.3 10^3/ul (0.3-0.9); MONOCYTES % 11.6 % (0.0-11.0); NEUTROPHIL # 15.1 10^3/ul (1.6-7.5); NEUTROPHILS % 77.6 % (39.0-77.0); NUCLEATED RED BLOOD CELLS% 0.1 /100WBC (0.0-0.0); PLATELET COUNT 175 10^3/UL (140-415); RED BLOOD COUNT 3.29 10^6/ul (4.20-5.40); RED CELL DISTRIBUTION WIDTH 18.4 % (11.5-14.5)
[2017-07-05 06:47] LABS: POSITIVE DIFF @See below
[2017-07-05 07:12] LABS: ALANINE AMINOTRANSFERASE 64 IU/L (13-69); ALBUMIN 2.5 g/dl (3.3-4.9); ALBUMIN/GLOBULIN RATIO 0.65; ALKALINE PHOSPHATASE 185 IU/L (42-121); ANION GAP 14 (8-16); ASPARTATE AMINO TRANSFERASE 90 IU/L (15-46); BILIRUBIN,INDIRECT 0.7 mg/dl (0-1.1); BILIRUBIN,TOTAL 0.9 mg/dl (0.2-1.3); BLOOD UREA NITROGEN 80 mg/dl (7-20); CALCIUM 8.1 mg/dl (8.4-10.2); CARBON DIOXIDE 25 mmol/L (21-31); CHLORIDE 105 mmol/L (97-110); CREATININE 1.92 mg/dl (0.44-1.00); GLUCOSE 139 mg/dl (70-220); MAGNESIUM 2.2 mg/dl (1.7-2.5); PHOSPHORUS 2.7 mg/dl (2.5-4.9); POTASSIUM 4.5 mmol/L (3.5-5.1); SODIUM 139 mmol/L (135-144); TOTAL PROTEIN 6.3 g/dl (6.1-8.1)
[2017-07-05 08:43] LABS: AADO2 Arterial 49.9 mmHg (7.0-24.0); Allen Test ACCEPTAB; Arterial Base Excess 0.5 mmol/L (-3.0-3); Arterial Blood Gas Oxygen Sat 98.7 mmHG (95.0-100.0); Arterial COHb 0.5 % (0.0-3.0); Arterial Fraction of Oxyhgb 97.8 % (93.0-99.0); Arterial HCO3 22.2 mmol/L (22.0-26.0); Arterial MetHb 0.4 % (0.0-1.5); Arterial Total Hemglobin 15.2 g/dl (12.0-18.0); Arterial pCO2 28.2 mmhg (35-45); MODE VENT - AC; Site Right Radial
[2017-07-05] MEDS: SYMBICORT 160/4.5 INH (09:00)
[2017-07-05] MEDS ORDERED: VANCOMYCIN IV PER PHARMACY XX (09:30)
[2017-07-05] MEDS: FUROSEMIDE 20 MG TAB PO (09:43)
[2017-07-05] MEDS: METOPROLOL 100 MG TAB GTB ×2 (09:43→21:09)
[2017-07-05] MEDS: NYSTATIN 30 GM POWDER BTL TOP ×2 (09:44→21:08)
[2017-07-05] MEDS: FLUTICASONE 0.05% 16 GM NAS SPRAY NASAL ×2 (09:44→21:00)
[2017-07-05] MEDS: GABAPENTIN 100 MG CAP PO ×3 (09:44→21:09)
[2017-07-05] MEDS: FUROSEMIDE 20 MG INJ IV (09:49)
[2017-07-05] MEDS: RANITIDINE 150 MG TAB PO ×2 (09:49→21:08)
[2017-07-05] MEDS: LEVETIRACETAM 1000 MG (PMX) 100 ML IVPB ×2 (09:49→21:08)
[2017-07-05] MEDS: predniSONE 10 MG TAB PO (09:50)
[2017-07-05] MEDS ORDERED: CEFEPIME 2GM/50 ML (PMX) 50 ML IVPB (11:00)
[2017-07-05] MEDS: CEFEPIME 2GM/50 ML (PMX) 50 ML IVPB (11:13)
[2017-07-05] MEDS: VANCOMYCIN 2 GM in SOD CHLORIDE 0.9% 500 ML IVPB (12:28)
[2017-07-05] MEDS: ACETAMINOPHEN 325 MG TAB PO (12:52)
[2017-07-05] MEDS: FUROSEMIDE 40 MG INJ IV (16:21)
[2017-07-05] MEDS: SENNA TAB PO (21:00)
[2017-07-05] MEDS: predniSONE 5 MG TAB PO (21:08)
[2017-07-05] MEDS: MONTELUKAST 10 MG TAB PO (21:08)
[2017-07-05] MEDS: PRAMIPEXOLE 0.125 MG TAB PO (21:08)
[2017-07-06] MEDS: ACCU-CHEK XX ×24 (01:00→23:05)
[2017-07-06] MEDS: ALBUTEROL HFA 8 GM INHALER INH ×4 (01:14→19:45)
[2017-07-06] MEDS: IPRATROPIUM (HFA) 12.9 GM INHALER INH ×4 (01:14→19:45)
[2017-07-06] MEDS: DEXTROSE 10% 1,000 ML IV (02:22)
[2017-07-06 05:43] LABS: ADD MAN DIFF? NO
[2017-07-06 05:45] LABS: ABNORMAL IP MESSAGE 1; BASOPHILS % 0.1 % (0.0-2.0); EOSINOPHILS # 0.2 10^3/ul (0.0-0.5); EOSINOPHILS % 1.3 % (0.0-7.0); HEMATOCRIT 27.4 % (37.0-47.0); HEMOGLOBIN 9.1 g/dl (12.0-16.0); LYMPHOCYTES # 1.4 10^3/ul (0.8-2.9); LYMPHOCYTES % 8.2 % (15.0-51.0); MEAN CORPUSCULAR HEMOGLOBIN 29.8 pg (29.0-33.0); MEAN CORPUSCULAR HGB CONC 33.2 g/dl (32.0-37.0); MEAN CORPUSCULAR VOLUME 89.8 fl (82.0-101.0); MEAN PLATELET VOLUME 10.7 fl (7.4-10.4); MONOCYTE # 1.9 10^3/ul (0.3-0.9); MONOCYTES % 11.4 % (0.0-11.0); NEUTROPHIL # 12.7 10^3/ul (1.6-7.5); NEUTROPHILS % 76.3 % (39.0-77.0); NUCLEATED RED BLOOD CELLS% 0.1 /100WBC (0.0-0.0); PLATELET COUNT 133 10^3/UL (140-415); RED BLOOD COUNT 3.05 10^6/ul (4.20-5.40); RED CELL DISTRIBUTION WIDTH 18.3 % (11.5-14.5)
[2017-07-06 05:45] LABS: WHITE BLOOD COUNT 16.6 10^3/ul (4.8-10.8)
[2017-07-06 05:50] LABS: POSITIVE DIFF @See below
[2017-07-06] MEDS: PANTOPRAZOLE 40 MG INJ IV ×2 (06:12→18:27)
[2017-07-06 06:14] LABS: ALANINE AMINOTRANSFERASE 54 IU/L (13-69); ALBUMIN 2.1 g/dl (3.3-4.9); ALBUMIN/GLOBULIN RATIO 0.61; ALKALINE PHOSPHATASE 169 IU/L (42-121); ANION GAP 10 (8-16); ASPARTATE AMINO TRANSFERASE 62 IU/L (15-46); BILIRUBIN,INDIRECT 0.5 mg/dl (0-1.1); BILIRUBIN,TOTAL 0.5 mg/dl (0.2-1.3); BLOOD UREA NITROGEN 75 mg/dl (7-20); CALCIUM 7.8 mg/dl (8.4-10.2); CARBON DIOXIDE 27 mmol/L (21-31); CHLORIDE 108 mmol/L (97-110); GLUCOSE 192 mg/dl (70-220); MAGNESIUM 2.1 mg/dl (1.7-2.5); PHOSPHORUS 2.4 mg/dl (2.5-4.9); SODIUM 141 mmol/L (135-144); TOTAL PROTEIN 5.5 g/dl (6.1-8.1)
[2017-07-06] MEDS: INSULIN HUMAN REGULAR 100 UNIT in SOD CHLORIDE 0.9% 99 ML IV ×2 (08:30→21:32)
[2017-07-06] MEDS: DEXTROSE 5%-LR 1,000 ML IV (08:46)
[2017-07-06] MEDS: SYMBICORT 160/4.5 INH ×3 (09:00→21:05)
[2017-07-06 09:02] LABS: AADO2 Arterial 62.5 mmHg (7.0-24.0); Allen Test ACCEPTAB; Arterial Base Excess 0.3 mmol/L (-3.0-3); Arterial Blood Gas Oxygen Sat 98.3 mmHG (95.0-100.0); Arterial COHb 0.3 % (0.0-3.0); Arterial Fraction of Oxyhgb 97.7 % (93.0-99.0); Arterial HCO3 21.9 mmol/L (22.0-26.0); Arterial MetHb 0.3 % (0.0-1.5); Arterial Total Hemglobin 10.4 g/dl (12.0-18.0); Arterial pCO2 26.1 mmhg (35-45); MODE VENT - AC; Site Right Radial
[2017-07-06] MEDS: FLUTICASONE 0.05% 16 GM NAS SPRAY NASAL ×2 (09:07→20:50)
[2017-07-06] MEDS: METOPROLOL 100 MG TAB GTB ×2 (09:08→20:51)
[2017-07-06] MEDS: predniSONE 10 MG TAB PO (09:08)
[2017-07-06] MEDS: RANITIDINE 150 MG TAB PO ×2 (09:08→20:50)
[2017-07-06] MEDS: FUROSEMIDE 20 MG TAB PO (09:09)
[2017-07-06] MEDS: GABAPENTIN 100 MG CAP PO ×3 (09:09→20:50)
[2017-07-06] MEDS: NYSTATIN 30 GM POWDER BTL TOP ×2 (09:09→20:55)
[2017-07-06] MEDS: LEVETIRACETAM 1000 MG (PMX) 100 ML IVPB ×2 (09:20→20:50)
[2017-07-06] MEDS: VANCOMYCIN 1 GM 250 ML IVPB (10:50)
[2017-07-06] MEDS: CEFEPIME 2GM/50 ML (PMX) 50 ML IVPB (12:18)
[2017-07-06] MEDS: PROPOFOL 100 ML IV ×2 (13:38→21:28)
[2017-07-06] MEDS: SENNA TAB PO (20:50)
[2017-07-06] MEDS: predniSONE 5 MG TAB PO (20:50)
[2017-07-06] MEDS: MONTELUKAST 10 MG TAB PO (20:50)
[2017-07-06] MEDS: PRAMIPEXOLE 0.125 MG TAB PO (20:51)
[2017-07-07] MEDS: ACCU-CHEK XX ×24 (01:00→23:43)
[2017-07-07] MEDS: ALBUTEROL HFA 8 GM INHALER INH ×4 (01:36→19:40)
[2017-07-07] MEDS: IPRATROPIUM (HFA) 12.9 GM INHALER INH ×4 (01:36→19:40)
[2017-07-07] MEDS: PROPOFOL 100 ML IV ×2 (02:44→06:11)
[2017-07-07] MEDS: PANTOPRAZOLE 40 MG INJ IV ×2 (05:21→18:23)
[2017-07-07 05:36] LABS: ADD MAN DIFF? NO
[2017-07-07 05:43] LABS: WHITE BLOOD COUNT 16.4 10^3/ul (4.8-10.8)
[2017-07-07 05:43] LABS: ABNORMAL IP MESSAGE 1; BASOPHILS % 0.2 % (0.0-2.0); EOSINOPHILS # 0.2 10^3/ul (0.0-0.5); EOSINOPHILS % 1.3 % (0.0-7.0); HEMATOCRIT 27.4 % (37.0-47.0); HEMOGLOBIN 9.3 g/dl (12.0-16.0); LYMPHOCYTES # 1.3 10^3/ul (0.8-2.9); LYMPHOCYTES % 7.7 % (15.0-51.0); MEAN CORPUSCULAR HEMOGLOBIN 30.4 pg (29.0-33.0); MEAN CORPUSCULAR HGB CONC 33.9 g/dl (32.0-37.0); MEAN CORPUSCULAR VOLUME 89.5 fl (82.0-101.0); MEAN PLATELET VOLUME 11.3 fl (7.4-10.4); MONOCYTE # 1.8 10^3/ul (0.3-0.9); MONOCYTES % 10.9 % (0.0-11.0); NEUTROPHIL # 12.2 10^3/ul (1.6-7.5); NEUTROPHILS % 74.4 % (39.0-77.0); NUCLEATED RED BLOOD CELLS% 0.1 /100WBC (0.0-0.0); PLATELET COUNT 154 10^3/UL (140-415); RED BLOOD COUNT 3.06 10^6/ul (4.20-5.40); RED CELL DISTRIBUTION WIDTH 18.1 % (11.5-14.5)
[2017-07-07 05:46] LABS: AADO2 Arterial 80.5 mmHg (7.0-24.0); Allen Test ACCEPTAB; Arterial Base Excess 1.4 mmol/L (-3.0-3); Arterial Blood Gas Oxygen Sat 98.1 mmHG (95.0-100.0); Arterial COHb 0.3 % (0.0-3.0); Arterial Fraction of Oxyhgb 97.3 % (93.0-99.0); Arterial HCO3 22.3 mmol/L (22.0-26.0); Arterial MetHb 0.5 % (0.0-1.5); Arterial Total Hemglobin 9.5 g/dl (12.0-18.0); Arterial pCO2 23.7 mmhg (35-45); MODE VENT - AC; Site Right Radial
[2017-07-07 05:48] LABS: POSITIVE DIFF @See below
[2017-07-07 06:06] LABS: LACTIC ACID 2.9 mmol/L (0.5-2.0)
[2017-07-07 06:08] LABS: ANION GAP 10 (8-16); BLOOD UREA NITROGEN 72 mg/dl (7-20); CARBON DIOXIDE 25 mmol/L (21-31); CHLORIDE 109 mmol/L (97-110); CREATININE 1.58 mg/dl (0.44-1.00); GLUCOSE 154 mg/dl (70-220); POTASSIUM 4.1 mmol/L (3.5-5.1); SODIUM 140 mmol/L (135-144)
[2017-07-07] MEDS: SYMBICORT 160/4.5 INH ×2 (09:00→21:00)
[2017-07-07] MEDS: LEVETIRACETAM 1000 MG (PMX) 100 ML IVPB ×2 (09:08→20:40)
[2017-07-07] MEDS: NYSTATIN 30 GM POWDER BTL TOP ×2 (09:08→20:41)
[2017-07-07] MEDS: FLUTICASONE 0.05% 16 GM NAS SPRAY NASAL ×2 (09:09→20:59)
[2017-07-07] MEDS: METOPROLOL 100 MG TAB GTB ×2 (09:09→20:41)
[2017-07-07] MEDS: GABAPENTIN 100 MG CAP PO ×3 (09:09→20:40)
[2017-07-07] MEDS: predniSONE 10 MG TAB PO (09:10)
[2017-07-07] MEDS: FUROSEMIDE 20 MG TAB PO (09:10)
[2017-07-07] MEDS: RANITIDINE 150 MG TAB PO ×2 (09:10→20:41)
[2017-07-07] MEDS: CEFOTAXIME 2 GM/50 ML (PMX) 50 ML IVPB (09:54)
[2017-07-07 11:02] LABS: VANCOMYCIN,TROUGH 15.7 ug/ml (10.0-20.0)
[2017-07-07] MEDS: VANCOMYCIN 1 GM 250 ML IVPB (11:25)
[2017-07-07] MEDS: CEFEPIME 2GM/50 ML (PMX) 50 ML IVPB (13:33)
[2017-07-07] MEDS: INSULIN HUMAN REGULAR 100 UNIT in SOD CHLORIDE 0.9% 99 ML IV (15:17)
[2017-07-07] MEDS: FUROSEMIDE 40 MG INJ IV (17:12)
[2017-07-07] MEDS: POTASSIUM CHLORIDE 100 ML IVPB (17:12)
[2017-07-07] MEDS: DEXTROSE 5%-LR 1,000 ML IV (19:35)
[2017-07-07] MEDS: SENNA TAB PO (20:40)
[2017-07-07] MEDS: predniSONE 5 MG TAB PO (20:41)
[2017-07-07] MEDS: PRAMIPEXOLE 0.125 MG TAB PO (20:41)
[2017-07-07] MEDS: MONTELUKAST 10 MG TAB PO (20:41)
[2017-07-08] MEDS: IPRATROPIUM (HFA) 12.9 GM INHALER INH ×4 (01:01→19:33)
[2017-07-08] MEDS: ALBUTEROL HFA 8 GM INHALER INH ×4 (01:01→19:33)
[2017-07-08] MEDS: ACCU-CHEK XX ×23 (01:13→23:00)
[2017-07-08 05:19] LABS: AADO2 Arterial 83.1 mmHg (7.0-24.0); Allen Test ACCEPTAB; Arterial Base Excess 3.1 mmol/L (-3.0-3); Arterial Blood Gas Oxygen Sat 97.5 mmHG (95.0-100.0); Arterial COHb 0.3 % (0.0-3.0); Arterial Fraction of Oxyhgb 96.9 % (93.0-99.0); Arterial HCO3 26.2 mmol/L (22.0-26.0); Arterial MetHb 0.3 % (0.0-1.5); Arterial Total Hemglobin 10.3 g/dl (12.0-18.0); Arterial pCO2 34.4 mmhg (35-45); MODE VENT - AC; Site Right Radial
[2017-07-08] MEDS: PANTOPRAZOLE 40 MG INJ IV ×2 (06:24→17:59)
[2017-07-08 06:38] LABS: ABNORMAL IP MESSAGE 1; HEMATOCRIT 28.8 % (37.0-47.0); HEMOGLOBIN 9.5 g/dl (12.0-16.0); MEAN CORPUSCULAR HEMOGLOBIN 30.5 pg (29.0-33.0); MEAN CORPUSCULAR VOLUME 92.6 fl (82.0-101.0); MEAN PLATELET VOLUME 11.3 fl (7.4-10.4); NUCLEATED RED BLOOD CELLS% 0.2 /100WBC (0.0-0.0); PLATELET COUNT 175 10^3/UL (140-415); RED BLOOD COUNT 3.11 10^6/ul (4.20-5.40); RED CELL DISTRIBUTION WIDTH 18.4 % (11.5-14.5)
[2017-07-08 06:48] LABS: ADD MAN DIFF? YES; POSITIVE DIFF @See below
[2017-07-08 07:08] LABS: ANION GAP 11 (8-16); BLOOD UREA NITROGEN 71 mg/dl (7-20); CALCIUM 8.3 mg/dl (8.4-10.2); CARBON DIOXIDE 28 mmol/L (21-31); CHLORIDE 107 mmol/L (97-110); CREATININE 1.64 mg/dl (0.44-1.00); GLUCOSE 128 mg/dl (70-220); POTASSIUM 4.2 mmol/L (3.5-5.1); SODIUM 142 mmol/L (135-144)
[2017-07-08] MEDS: INSULIN HUMAN REGULAR 100 UNIT in SOD CHLORIDE 0.9% 99 ML IV (08:00)
[2017-07-08] MEDS: DEXTROSE 5%-LR 1,000 ML IV (08:30)
[2017-07-08] MEDS: LEVETIRACETAM 1000 MG (PMX) 100 ML IVPB ×2 (09:29→21:05)
[2017-07-08] MEDS: FUROSEMIDE 40 MG INJ IV (09:29)
[2017-07-08] MEDS: METOPROLOL 100 MG TAB GTB ×2 (09:30→21:04)
[2017-07-08] MEDS: predniSONE 10 MG TAB PO (09:30)
[2017-07-08] MEDS: RANITIDINE 150 MG TAB PO ×2 (09:30→21:04)
[2017-07-08] MEDS: GABAPENTIN 100 MG CAP PO ×3 (09:31→21:03)
[2017-07-08] MEDS: NYSTATIN 30 GM POWDER BTL TOP ×2 (09:32→21:06)
[2017-07-08 10:04] LABS: ANISOCYTOSIS 1+ (0-0); BAND NEUTROPHILS #M 0.4 10^3/ul (0.0-0.6); BAND NEUTROPHILS % (M) 2 % (0-4); HYPOCHROMASIA 1+ (0-0); LYMPHOCYTES #M 1.2 10^3/ul (0.8-2.9); LYMPHOCYTES % (M) 6 % (15-51); MONOCYTE #M 4.2 10^3/ul (0.3-0.9); MONOCYTES % (M) 20 % (0-11); MYELOCYTES #M 0.4 10^3/ul (0.0-0.0); MYELOCYTES % (M) 2 % (0-0); PLATELET ESTIMATE NORMAL; POLYCHROMASIA 3+ (0-0); REACTIVE LYMPHOCYTES #M 0.4 10^3/ul (0.0-0.0); REACTIVE LYMPHOCYTES% (M) 2 % (0-0); SEG NEUT #M 14.4 10^3/ul (1.6-7.5); SEGMENTED NEUTROPHILS (M) % 68 % (39-77); SMUDGE%M 5 % (0-0)
[2017-07-08] MEDS: FLUTICASONE 0.05% 16 GM NAS SPRAY NASAL ×2 (10:55→21:05)
[2017-07-08] MEDS: VANCOMYCIN 750 MG in DEXTROSE 5% 150 ML IVPB (10:59)
[2017-07-08] MEDS: CEFEPIME 2GM/50 ML (PMX) 50 ML IVPB (12:02)
[2017-07-08] MEDS: PROPOFOL 100 ML IV (13:30)
[2017-07-08] MEDS: SENNA TAB PO (21:00)
[2017-07-08] MEDS: MONTELUKAST 10 MG TAB PO (21:04)
[2017-07-08] MEDS: ARTIFICIAL TEARS 15 ML OPH BOTH EYES ×2 (21:04→21:06)
[2017-07-08] MEDS: OCULAR LUBRICANT 3.5 GM OPH OINT BOTH EYES ×2 (21:05→21:06)
[2017-07-08] MEDS: PRAMIPEXOLE 0.125 MG TAB PO (21:06)
[2017-07-08] MEDS: predniSONE 5 MG TAB PO (21:07)
[2017-07-09] MEDS: ACCU-CHEK XX ×24 (00:38→23:02)
[2017-07-09] MEDS: IPRATROPIUM (HFA) 12.9 GM INHALER INH ×4 (01:20→19:37)
[2017-07-09] MEDS: ALBUTEROL HFA 8 GM INHALER INH ×4 (01:20→19:37)
[2017-07-09] MEDS: PROPOFOL 100 ML IV ×2 (01:30→13:24)
[2017-07-09] MEDS: DEXTROSE 5%-LR 1,000 ML IV (03:29)
[2017-07-09 05:16] LABS: WHITE BLOOD COUNT 20.3 10^3/ul (4.8-10.8)
[2017-07-09 05:16] LABS: ABNORMAL IP MESSAGE 1; HEMATOCRIT 27.4 % (37.0-47.0); MEAN CORPUSCULAR HEMOGLOBIN 30.6 pg (29.0-33.0); MEAN CORPUSCULAR HGB CONC 32.8 g/dl (32.0-37.0); MEAN CORPUSCULAR VOLUME 93.2 fl (82.0-101.0); NUCLEATED RED BLOOD CELLS% 0.3 /100WBC (0.0-0.0); PLATELET COUNT 156 10^3/UL (140-415); RED BLOOD COUNT 2.94 10^6/ul (4.20-5.40); RED CELL DISTRIBUTION WIDTH 18.9 % (11.5-14.5)
[2017-07-09] MEDS: PANTOPRAZOLE 40 MG INJ IV ×2 (05:34→17:20)
[2017-07-09 05:35] LABS: ADD MAN DIFF? YES; POSITIVE DIFF @See below
[2017-07-09 05:41] LABS: ALANINE AMINOTRANSFERASE 53 IU/L (13-69); ALBUMIN 2.1 g/dl (3.3-4.9); ALBUMIN/GLOBULIN RATIO 0.61; ALKALINE PHOSPHATASE 185 IU/L (42-121); ANION GAP 6 (8-16); ASPARTATE AMINO TRANSFERASE 65 IU/L (15-46); BILIRUBIN,INDIRECT 0.3 mg/dl (0-1.1); BILIRUBIN,TOTAL 0.3 mg/dl (0.2-1.3); BLOOD UREA NITROGEN 76 mg/dl (7-20); CALCIUM 8.5 mg/dl (8.4-10.2); CARBON DIOXIDE 31 mmol/L (21-31); CHLORIDE 110 mmol/L (97-110); CREATININE 1.71 mg/dl (0.44-1.00); GLUCOSE 139 mg/dl (70-220); MAGNESIUM 2.2 mg/dl (1.7-2.5); PHOSPHORUS 3.4 mg/dl (2.5-4.9); POTASSIUM 4.4 mmol/L (3.5-5.1); SODIUM 143 mmol/L (135-144); TOTAL PROTEIN 5.5 g/dl (6.1-8.1)
[2017-07-09] MEDS: INSULIN HUMAN REGULAR 100 UNIT in SOD CHLORIDE 0.9% 99 ML IV (06:11)
[2017-07-09 08:13] LABS: ANISOCYTOSIS 1+ (0-0); BAND NEUTROPHILS #M 0.8 10^3/ul (0.0-0.6); BAND NEUTROPHILS % (M) 4 % (0-4); EOSINOPHILS % (M) 1 % (0-7); ERYTHROBLAST% (NRBC) (M) 1 % (0-0); HYPOCHROMASIA 1+ (0-0); LYMPHOCYTES #M 0.6 10^3/ul (0.8-2.9); LYMPHOCYTES % (M) 3 % (15-51); METAMYELOCYTES #M 0.8 10^3/ul (0.0-0.0); METAMYELOCYTES %M 4 % (0-0); MONOCYTE #M 1.4 10^3/ul (0.3-0.9); MONOCYTES % (M) 7 % (0-11); MYELOCYTES #M 0.2 10^3/ul (0.0-0.0); MYELOCYTES % (M) 1 % (0-0); PLATELET ESTIMATE NORMAL; POLYCHROMASIA 3+ (0-0); REACTIVE LYMPHOCYTES #M 0.4 10^3/ul (0.0-0.0); REACTIVE LYMPHOCYTES% (M) 2 % (0-0); SEGMENTED NEUTROPHILS (M) % 78 % (39-77); SMUDGE%M 8 % (0-0)
[2017-07-09 08:45] LABS: Allen Test ACCEPTAB; Arterial Base Excess 2.4 mmol/L (-3.0-3); Arterial Blood Gas Oxygen Sat 97.6 mmHG (95.0-100.0); Arterial COHb 0.2 % (0.0-3.0); Arterial Fraction of Oxyhgb 97.1 % (93.0-99.0); Arterial MetHb 0.3 % (0.0-1.5); Arterial Total Hemglobin 10.3 g/dl (12.0-18.0); Arterial pCO2 36.2 mmhg (35-45); MODE VENT - AC; Site Right Radial
[2017-07-09] MEDS: ARTIFICIAL TEARS 15 ML OPH BOTH EYES ×4 (09:55→21:48)
[2017-07-09] MEDS: OCULAR LUBRICANT 3.5 GM OPH OINT BOTH EYES ×4 (09:55→21:48)
[2017-07-09] MEDS: GABAPENTIN 100 MG CAP PO ×3 (09:56→21:46)
[2017-07-09] MEDS: METOPROLOL 100 MG TAB GTB ×2 (09:56→21:47)
[2017-07-09] MEDS: LEVETIRACETAM 1000 MG (PMX) 100 ML IVPB ×2 (09:56→21:52)
[2017-07-09] MEDS: RANITIDINE 150 MG TAB PO ×2 (09:57→21:47)
[2017-07-09] MEDS: FUROSEMIDE 40 MG INJ IV (09:57)
[2017-07-09] MEDS: predniSONE 10 MG TAB PO (09:57)
[2017-07-09] MEDS: FLUTICASONE 0.05% 16 GM NAS SPRAY NASAL ×2 (10:09→21:48)
[2017-07-09] MEDS: VANCOMYCIN 750 MG in DEXTROSE 5% 150 ML IVPB (10:37)
[2017-07-09] MEDS: NYSTATIN 30 GM POWDER BTL TOP ×2 (10:43→21:48)
[2017-07-09] MEDS: CEFEPIME 2GM/50 ML (PMX) 50 ML IVPB (12:54)
[2017-07-09] MEDS: ALTEPLASE (CATHFLO) 2 MG INJ CATHETER (13:25)
[2017-07-09] MEDS: MONTELUKAST 10 MG TAB PO (21:46)
[2017-07-09] MEDS: PRAMIPEXOLE 0.125 MG TAB PO (21:46)
[2017-07-09] MEDS: predniSONE 5 MG TAB PO (21:46)
[2017-07-09] MEDS: SENNA TAB PO (21:46)
[2017-07-10] MEDS: ACCU-CHEK XX ×25 (00:02→23:41)
[2017-07-10] MEDS: ALBUTEROL HFA 8 GM INHALER INH ×4 (01:21→19:28)
[2017-07-10] MEDS: IPRATROPIUM (HFA) 12.9 GM INHALER INH ×4 (01:21→19:28)
[2017-07-10] MEDS: PROPOFOL 100 ML IV ×2 (01:30→13:30)
[2017-07-10] MEDS: PANTOPRAZOLE 40 MG INJ IV ×2 (05:16→18:00)
[2017-07-10 05:19] LABS: ABNORMAL IP MESSAGE 1; HEMATOCRIT 28.7 % (37.0-47.0); HEMOGLOBIN 9.2 g/dl (12.0-16.0); MEAN CORPUSCULAR HEMOGLOBIN 30.5 pg (29.0-33.0); MEAN CORPUSCULAR HGB CONC 32.1 g/dl (32.0-37.0); MEAN PLATELET VOLUME 10.9 fl (7.4-10.4); NUCLEATED RED BLOOD CELLS% 0.3 /100WBC (0.0-0.0); PLATELET COUNT 164 10^3/UL (140-415); RED BLOOD COUNT 3.02 10^6/ul (4.20-5.40); RED CELL DISTRIBUTION WIDTH 18.6 % (11.5-14.5)
[2017-07-10 05:19] LABS: WHITE BLOOD COUNT 20.2 10^3/ul (4.8-10.8)
[2017-07-10 05:44] LABS: ALANINE AMINOTRANSFERASE 52 IU/L (13-69); ALBUMIN 2.2 g/dl (3.3-4.9); ALBUMIN/GLOBULIN RATIO 0.64; ALKALINE PHOSPHATASE 190 IU/L (42-121); ANION GAP 11 (8-16); ASPARTATE AMINO TRANSFERASE 65 IU/L (15-46); BILIRUBIN,INDIRECT 0.4 mg/dl (0-1.1); BILIRUBIN,TOTAL 0.4 mg/dl (0.2-1.3); BLOOD UREA NITROGEN 77 mg/dl (7-20); CALCIUM 8.7 mg/dl (8.4-10.2); CARBON DIOXIDE 31 mmol/L (21-31); CHLORIDE 108 mmol/L (97-110); CREATININE 1.68 mg/dl (0.44-1.00); GLUCOSE 168 mg/dl (70-220); MAGNESIUM 2.2 mg/dl (1.7-2.5); POTASSIUM 4.7 mmol/L (3.5-5.1); SODIUM 145 mmol/L (135-144); TOTAL PROTEIN 5.6 g/dl (6.1-8.1)
[2017-07-10 06:21] LABS: POSITIVE DIFF @See below
[2017-07-10 06:24] LABS: ADD MAN DIFF? YES
[2017-07-10 07:47] LABS: ANISOCYTOSIS 1+ (0-0); BAND NEUTROPHILS #M 0.6 10^3/ul (0.0-0.6); BAND NEUTROPHILS % (M) 3 % (0-4); EOSINOPHILS % (M) 1 % (0-7); LYMPHOCYTES #M 1.2 10^3/ul (0.8-2.9); LYMPHOCYTES % (M) 6 % (15-51); METAMYELOCYTES #M 0.2 10^3/ul (0.0-0.0); METAMYELOCYTES %M 1 % (0-0); MONOCYTE #M 1.6 10^3/ul (0.3-0.9); MONOCYTES % (M) 8 % (0-11); MYELOCYTES #M 0.4 10^3/ul (0.0-0.0); MYELOCYTES % (M) 2 % (0-0); PLATELET ESTIMATE NORMAL; POLYCHROMASIA 1+ (0-0); REACTIVE LYMPHOCYTES #M 0.8 10^3/ul (0.0-0.0); REACTIVE LYMPHOCYTES% (M) 4 % (0-0); SEG NEUT #M 15.5 10^3/ul (1.6-7.5); SEGMENTED NEUTROPHILS (M) % 76 % (39-77); SMUDGE%M 9 % (0-0)
[2017-07-10] MEDS: DEXTROSE 5%-LR 1,000 ML IV (07:49)
[2017-07-10] MEDS: LEVETIRACETAM 1000 MG (PMX) 100 ML IVPB ×2 (08:08→21:13)
[2017-07-10] MEDS: NYSTATIN 30 GM POWDER BTL TOP ×2 (08:09→21:16)
[2017-07-10] MEDS: ARTIFICIAL TEARS 15 ML OPH BOTH EYES ×4 (08:10→21:16)
[2017-07-10] MEDS: OCULAR LUBRICANT 3.5 GM OPH OINT BOTH EYES ×4 (08:10→21:16)
[2017-07-10] MEDS: FLUTICASONE 0.05% 16 GM NAS SPRAY NASAL ×2 (08:10→21:16)
[2017-07-10] MEDS: FUROSEMIDE 40 MG INJ IV (08:13)
[2017-07-10] MEDS: METOPROLOL 100 MG TAB GTB ×2 (08:16→21:15)
[2017-07-10] MEDS: GABAPENTIN 100 MG CAP PO ×3 (08:16→21:13)
[2017-07-10] MEDS: predniSONE 10 MG TAB PO (08:16)
[2017-07-10] MEDS: RANITIDINE 150 MG TAB PO ×2 (08:16→21:14)
[2017-07-10] MEDS: INSULIN HUMAN REGULAR 100 UNIT in SOD CHLORIDE 0.9% 99 ML IV (08:43)
[2017-07-10 10:59] LABS: AADO2 Arterial 27.9 mmHg (7.0-24.0); Allen Test ACCEPTAB; Arterial Base Excess 4.5 mmol/L (-3.0-3); Arterial Blood Gas Oxygen Sat 98.8 mmHG (95.0-100.0); Arterial COHb 0.3 % (0.0-3.0); Arterial Fraction of Oxyhgb 98.3 % (93.0-99.0); Arterial HCO3 28.3 mmol/L (22.0-26.0); Arterial MetHb 0.2 % (0.0-1.5); Arterial Total Hemglobin 12.1 g/dl (12.0-18.0); Blood Gas PS 10; MODE VENT - CPAP; Site Right Radial
[2017-07-10] MEDS: CEFEPIME 2GM/50 ML (PMX) 50 ML IVPB (11:05)
[2017-07-10] MEDS: VANCOMYCIN 750 MG in DEXTROSE 5% 150 ML IVPB (11:51)
[2017-07-10] MEDS: traMADol 50 MG TAB GTB (13:56)
[2017-07-10] MEDS: HYDROCODONE/APAP (7.5/325) TAB PO ×2 (15:34→19:34)
[2017-07-10] MEDS: SENNA TAB PO (21:00)
[2017-07-10] MEDS: PRAMIPEXOLE 0.125 MG TAB PO (21:14)
[2017-07-10] MEDS: predniSONE 5 MG TAB PO (21:14)
[2017-07-10] MEDS: MONTELUKAST 10 MG TAB PO (21:14)
[2017-07-11] MEDS: ACCU-CHEK XX ×23 (01:00→22:57)
[2017-07-11] MEDS: PROPOFOL 100 ML IV ×2 (01:30→13:30)
[2017-07-11] MEDS: ALBUTEROL HFA 8 GM INHALER INH ×4 (01:30→19:22)
[2017-07-11] MEDS: IPRATROPIUM (HFA) 12.9 GM INHALER INH ×4 (01:30→19:22)
[2017-07-11 05:21] LABS: ABNORMAL IP MESSAGE 1; HEMATOCRIT 28.4 % (37.0-47.0); MEAN CORPUSCULAR HEMOGLOBIN 29.9 pg (29.0-33.0); MEAN CORPUSCULAR HGB CONC 31.7 g/dl (32.0-37.0); MEAN CORPUSCULAR VOLUME 94.4 fl (82.0-101.0); MEAN PLATELET VOLUME 10.5 fl (7.4-10.4); NUCLEATED RED BLOOD CELLS% 0.3 /100WBC (0.0-0.0); PLATELET COUNT 141 10^3/UL (140-415); RED BLOOD COUNT 3.01 10^6/ul (4.20-5.40); RED CELL DISTRIBUTION WIDTH 18.6 % (11.5-14.5)
[2017-07-11 05:21] LABS: WHITE BLOOD COUNT 15.3 10^3/ul (4.8-10.8)
[2017-07-11] MEDS: PANTOPRAZOLE 40 MG INJ IV ×2 (05:31→18:30)
[2017-07-11 05:51] LABS: ALANINE AMINOTRANSFERASE 51 IU/L (13-69); ALBUMIN 2.4 g/dl (3.3-4.9); ALBUMIN/GLOBULIN RATIO 0.63; ALKALINE PHOSPHATASE 177 IU/L (42-121); ANION GAP 10 (8-16); ASPARTATE AMINO TRANSFERASE 71 IU/L (15-46); BLOOD UREA NITROGEN 80 mg/dl (7-20); CALCIUM 8.7 mg/dl (8.4-10.2); CARBON DIOXIDE 30 mmol/L (21-31); CHLORIDE 108 mmol/L (97-110); CREATININE 1.48 mg/dl (0.44-1.00); GLUCOSE 151 mg/dl (70-220); MAGNESIUM 2.4 mg/dl (1.7-2.5); PHOSPHORUS 3.7 mg/dl (2.5-4.9); POTASSIUM 4.6 mmol/L (3.5-5.1); SODIUM 143 mmol/L (135-144); TOTAL PROTEIN 6.2 g/dl (6.1-8.1)
[2017-07-11 05:53] LABS: POSITIVE DIFF @See below
[2017-07-11 05:54] LABS: ADD MAN DIFF? YES
[2017-07-11] MEDS: ARTIFICIAL TEARS 15 ML OPH BOTH EYES ×4 (08:21→20:57)
[2017-07-11] MEDS: FLUTICASONE 0.05% 16 GM NAS SPRAY NASAL ×2 (08:22→20:57)
[2017-07-11] MEDS: NYSTATIN 30 GM POWDER BTL TOP ×2 (08:22→20:59)
[2017-07-11] MEDS: OCULAR LUBRICANT 3.5 GM OPH OINT BOTH EYES ×4 (08:22→20:56)
[2017-07-11] MEDS: FUROSEMIDE 40 MG INJ IV (08:44)
[2017-07-11] MEDS: LEVETIRACETAM 1000 MG (PMX) 100 ML IVPB ×2 (08:45→20:57)
[2017-07-11] MEDS: GABAPENTIN 100 MG CAP PO ×3 (08:59→20:58)
[2017-07-11] MEDS: predniSONE 10 MG TAB PO (08:59)
[2017-07-11] MEDS: METOPROLOL 100 MG TAB GTB ×2 (09:00→20:57)
[2017-07-11 09:02] LABS: ANISOCYTOSIS 1+ (0-0); BASOPHIL #M 0.1 10^3/ul (0.0-0.0); BASOPHILS % (M) 1 % (0-2); EOSINOPHILS % (M) 2 % (0-7); ERYTHROBLAST% (NRBC) (M) 2 % (0-0); LYMPHOCYTES #M 0.7 10^3/ul (0.8-2.9); LYMPHOCYTES % (M) 5 % (15-51); MONOCYTE #M 0.7 10^3/ul (0.3-0.9); MONOCYTES % (M) 5 % (0-11); MYELOCYTES #M 0.1 10^3/ul (0.0-0.0); MYELOCYTES % (M) 1 % (0-0); PLATELET ESTIMATE NORMAL; POLYCHROMASIA 1+ (0-0); SEGMENTED NEUTROPHILS (M) % 86 % (39-77); SMUDGE%M 7 % (0-0)
[2017-07-11] MEDS: RANITIDINE 150 MG TAB PO ×2 (09:03→20:58)
[2017-07-11 10:28] LABS: AADO2 Arterial 50.5 mmHg (7.0-24.0); Allen Test ACCEPTAB; Arterial Base Excess 5.2 mmol/L (-3.0-3); Arterial Blood Gas Oxygen Sat 98.2 mmHG (95.0-100.0); Arterial COHb 0.3 % (0.0-3.0); Arterial Fraction of Oxyhgb 97.8 % (93.0-99.0); Arterial HCO3 29.3 mmol/L (22.0-26.0); Arterial MetHb 0.1 % (0.0-1.5); Arterial Total Hemglobin 10.4 g/dl (12.0-18.0); Blood Gas PS 10; MODE VENT - CPAP; Site Left Radial
[2017-07-11 10:34] LABS: VANCOMYCIN,TROUGH 18.3 ug/ml (10.0-20.0)
[2017-07-11] MEDS: DEXTROSE 5%-0.9% NACL 1,000 ML IV (13:30)
[2017-07-11] MEDS: CEFEPIME 2GM/50 ML (PMX) 50 ML IVPB (13:36)
[2017-07-11] MEDS: DEXTROSE 5% 1,000 ML IV (13:50)
[2017-07-11] MEDS: HYDROCODONE/APAP (7.5/325) TAB PO ×2 (17:22→21:59)
[2017-07-11] MEDS: VANCOMYCIN 500MG/NS (PMX) 100 ML IVPB (18:30)
[2017-07-11] MEDS: SENNA TAB PO (20:58)
[2017-07-11] MEDS: predniSONE 5 MG TAB PO (20:58)
[2017-07-11] MEDS: MONTELUKAST 10 MG TAB PO (20:58)
[2017-07-11] MEDS: PRAMIPEXOLE 0.125 MG TAB PO (20:58)
[2017-07-12] MEDS: ACCU-CHEK XX ×24 (00:59→23:00)
[2017-07-12] MEDS: ALBUTEROL HFA 8 GM INHALER INH ×2 (01:01→07:39)
[2017-07-12] MEDS: IPRATROPIUM (HFA) 12.9 GM INHALER INH ×2 (01:01→07:38)
[2017-07-12] MEDS: PROPOFOL 100 ML IV ×2 (01:30→12:17)
[2017-07-12 05:16] LABS: ADD MAN DIFF? NO
[2017-07-12 05:22] LABS: BASOPHILS % 0.3 % (0.0-2.0); EOSINOPHILS # 0.1 10^3/ul (0.0-0.5); EOSINOPHILS % 0.4 % (0.0-7.0); HEMATOCRIT 29.5 % (37.0-47.0); HEMOGLOBIN 9.4 g/dl (12.0-16.0); LYMPHOCYTES # 1.1 10^3/ul (0.8-2.9); LYMPHOCYTES % 9.5 % (15.0-51.0); MEAN CORPUSCULAR HEMOGLOBIN 30.4 pg (29.0-33.0); MEAN CORPUSCULAR HGB CONC 31.9 g/dl (32.0-37.0); MEAN CORPUSCULAR VOLUME 95.5 fl (82.0-101.0); MEAN PLATELET VOLUME 10.3 fl (7.4-10.4); MONOCYTE # 1.1 10^3/ul (0.3-0.9); MONOCYTES % 8.8 % (0.0-11.0); NEUTROPHIL # 9.1 10^3/ul (1.6-7.5); NUCLEATED RED BLOOD CELLS # 0.1 10^3/ul (0.0-0.0); NUCLEATED RED BLOOD CELLS% 0.4 /100WBC (0.0-0.0); PLATELET COUNT 147 10^3/UL (140-415); RED BLOOD COUNT 3.09 10^6/ul (4.20-5.40); RED CELL DISTRIBUTION WIDTH 18.2 % (11.5-14.5)
[2017-07-12 05:22] LABS: WHITE BLOOD COUNT 11.9 10^3/ul (4.8-10.8)
[2017-07-12 05:55] LABS: ALANINE AMINOTRANSFERASE 57 IU/L (13-69); ALBUMIN 2.2 g/dl (3.3-4.9); ALBUMIN/GLOBULIN RATIO 0.61; ALKALINE PHOSPHATASE 183 IU/L (42-121); ANION GAP 11 (8-16); ASPARTATE AMINO TRANSFERASE 75 IU/L (15-46); BILIRUBIN,INDIRECT 0.4 mg/dl (0-1.1); BILIRUBIN,TOTAL 0.4 mg/dl (0.2-1.3); BLOOD UREA NITROGEN 80 mg/dl (7-20); CALCIUM 8.8 mg/dl (8.4-10.2); CARBON DIOXIDE 32 mmol/L (21-31); CHLORIDE 108 mmol/L (97-110); CREATININE 1.34 mg/dl (0.44-1.00); GLUCOSE 116 mg/dl (70-220); MAGNESIUM 2.4 mg/dl (1.7-2.5); POTASSIUM 4.6 mmol/L (3.5-5.1); SODIUM 146 mmol/L (135-144); TOTAL PROTEIN 5.8 g/dl (6.1-8.1)
[2017-07-12] MEDS: PANTOPRAZOLE 40 MG INJ IV ×2 (06:00→18:12)
[2017-07-12] MEDS: OCULAR LUBRICANT 3.5 GM OPH OINT BOTH EYES ×4 (08:13→20:58)
[2017-07-12] MEDS: ARTIFICIAL TEARS 15 ML OPH BOTH EYES ×4 (08:13→20:58)
[2017-07-12] MEDS: NYSTATIN 30 GM POWDER BTL TOP ×2 (08:13→21:00)
[2017-07-12] MEDS: FLUTICASONE 0.05% 16 GM NAS SPRAY NASAL ×2 (08:13→20:58)
[2017-07-12] MEDS: LEVETIRACETAM 1000 MG (PMX) 100 ML IVPB ×2 (08:24→21:07)
[2017-07-12] MEDS: predniSONE 10 MG TAB PO (08:26)
[2017-07-12] MEDS: FUROSEMIDE 40 MG INJ IV (08:26)
[2017-07-12] MEDS: GABAPENTIN 100 MG CAP PO ×3 (08:26→20:59)
[2017-07-12] MEDS: RANITIDINE 150 MG TAB PO ×2 (08:26→20:59)
[2017-07-12] MEDS: METOPROLOL 100 MG TAB GTB ×2 (08:27→20:58)
[2017-07-12] MEDS: DEXTROSE 5% 1,000 ML IV (08:46)
[2017-07-12 10:55] LABS: AADO2 Arterial 48.4 mmHg (7.0-24.0); Allen Test ACCEPTAB; Arterial Base Excess 7.1 mmol/L (-3.0-3); Arterial COHb 0.3 % (0.0-3.0); Arterial Fraction of Oxyhgb 97.5 % (93.0-99.0); Arterial HCO3 31.6 mmol/L (22.0-26.0); Arterial MetHb 0.2 % (0.0-1.5); Arterial Total Hemglobin 10.5 g/dl (12.0-18.0); Arterial pCO2 44.7 mmhg (35-45); Blood Gas PS 10; MODE VENT - CPAP; Site Right Radial
[2017-07-12] MEDS: CEFEPIME 2GM/50 ML (PMX) 50 ML IVPB (11:33)
[2017-07-12] MEDS: ALBUTEROL/IPRATROPIUM (NEB) 3 ML AMP HHN ×2 (14:47→20:14)
[2017-07-12] MEDS ORDERED: hydrALAzine 20 MG INJ IV ×2 (16:30→18:00)
[2017-07-12] MEDS: morphine 2 MG INJ IV ×2 (16:39→21:06)
[2017-07-12] MEDS: VANCOMYCIN 500MG/NS (PMX) 100 ML IVPB (16:42)
[2017-07-12] MEDS: hydrALAzine 20 MG INJ IV (18:13)
[2017-07-12] MEDS: INSULIN HUMAN REGULAR 100 UNIT in SOD CHLORIDE 0.9% 99 ML IV (18:17)
[2017-07-12] MEDS: SENNA TAB PO (20:59)
[2017-07-12] MEDS: PRAMIPEXOLE 0.125 MG TAB PO (20:59)
[2017-07-12] MEDS: predniSONE 5 MG TAB PO (20:59)
[2017-07-12] MEDS: MONTELUKAST 10 MG TAB PO (20:59)
[2017-07-13] MEDS: PROPOFOL 100 ML IV ×3 (01:30→19:59)
[2017-07-13] MEDS: DEXTROSE 5% 1,000 ML IV (01:39)
[2017-07-13] MEDS: hydrALAzine 20 MG INJ IV ×4 (01:41→17:17)
[2017-07-13] MEDS: ACCU-CHEK XX ×19 (01:43→17:17)
[2017-07-13] MEDS: ALBUTEROL/IPRATROPIUM (NEB) 3 ML AMP HHN ×4 (02:00→20:15)
[2017-07-13 06:05] LABS: ADD MAN DIFF? NO; BASOPHILS % 0.2 % (0.0-2.0); EOSINOPHILS # 0.1 10^3/ul (0.0-0.5); EOSINOPHILS % 0.7 % (0.0-7.0); HEMATOCRIT 29.8 % (37.0-47.0); HEMOGLOBIN 9.4 g/dl (12.0-16.0); LYMPHOCYTES # 1.3 10^3/ul (0.8-2.9); MEAN CORPUSCULAR HGB CONC 31.5 g/dl (32.0-37.0); MEAN CORPUSCULAR VOLUME 95.2 fl (82.0-101.0); MEAN PLATELET VOLUME 10.4 fl (7.4-10.4); MONOCYTE # 0.8 10^3/ul (0.3-0.9); MONOCYTES % 8.1 % (0.0-11.0); NEUTROPHIL # 7.1 10^3/ul (1.6-7.5); NEUTROPHILS % 74.4 % (39.0-77.0); NUCLEATED RED BLOOD CELLS% 0.3 /100WBC (0.0-0.0); PLATELET COUNT 143 10^3/UL (140-415); RED BLOOD COUNT 3.13 10^6/ul (4.20-5.40)
[2017-07-13 06:05] LABS: WHITE BLOOD COUNT 9.5 10^3/ul (4.8-10.8)
[2017-07-13 06:10] LABS: ALANINE AMINOTRANSFERASE 52 IU/L (13-69); ALBUMIN 2.6 g/dl (3.3-4.9); ALBUMIN/GLOBULIN RATIO 0.68; ALKALINE PHOSPHATASE 175 IU/L (42-121); ANION GAP 10 (8-16); ASPARTATE AMINO TRANSFERASE 72 IU/L (15-46); BILIRUBIN,INDIRECT 0.5 mg/dl (0-1.1); BILIRUBIN,TOTAL 0.5 mg/dl (0.2-1.3); BLOOD UREA NITROGEN 71 mg/dl (7-20); CALCIUM 8.7 mg/dl (8.4-10.2); CARBON DIOXIDE 32 mmol/L (21-31); CHLORIDE 106 mmol/L (97-110); CREATININE 1.35 mg/dl (0.44-1.00); GLUCOSE 112 mg/dl (70-220); MAGNESIUM 2.3 mg/dl (1.7-2.5); POTASSIUM 4.4 mmol/L (3.5-5.1); SODIUM 144 mmol/L (135-144); TOTAL PROTEIN 6.4 g/dl (6.1-8.1)
[2017-07-13] MEDS: PANTOPRAZOLE 40 MG INJ IV ×2 (06:21→17:16)
[2017-07-13] MEDS: morphine 2 MG INJ IV ×2 (06:22→20:56)
[2017-07-13] MEDS: GABAPENTIN 100 MG CAP PO ×3 (09:06→21:23)
[2017-07-13] MEDS: METOPROLOL 100 MG TAB GTB ×2 (09:06→21:24)
[2017-07-13] MEDS: FLUTICASONE 0.05% 16 GM NAS SPRAY NASAL ×2 (09:07→21:25)
[2017-07-13] MEDS: FUROSEMIDE 40 MG INJ IV (09:07)
[2017-07-13] MEDS: predniSONE 10 MG TAB PO (09:07)
[2017-07-13] MEDS: RANITIDINE 150 MG TAB PO ×2 (09:07→21:23)
[2017-07-13] MEDS: NYSTATIN 30 GM POWDER BTL TOP ×2 (09:07→21:24)
[2017-07-13] MEDS: ARTIFICIAL TEARS 15 ML OPH BOTH EYES ×4 (09:08→21:24)
[2017-07-13] MEDS: OCULAR LUBRICANT 3.5 GM OPH OINT BOTH EYES ×4 (09:08→21:24)
[2017-07-13] MEDS: LEVETIRACETAM 1000 MG (PMX) 100 ML IVPB ×2 (09:45→21:26)
[2017-07-13] MEDS: CEFEPIME 2GM/50 ML (PMX) 50 ML IVPB (13:36)
[2017-07-13] MEDS: NPH, HUMAN INSULIN ISOPHANE 3ML VIAL SC ×2 (14:37→21:39)
[2017-07-13] MEDS: VANCOMYCIN 500MG/NS (PMX) 100 ML IVPB (16:14)
[2017-07-13] MEDS: INSULIN ASPART [NOVOLOG] 3 ML PEN SC ×2 (18:00→21:00)
[2017-07-13] MEDS: SENNA TAB PO (21:00)
[2017-07-13] MEDS: MONTELUKAST 10 MG TAB PO (21:23)
[2017-07-13] MEDS: predniSONE 5 MG TAB PO (21:23)
[2017-07-13] MEDS: PRAMIPEXOLE 0.125 MG TAB PO (21:23)
[2017-07-14] MEDS: DEXTROSE 5% 1,000 ML IV (00:43)
[2017-07-14] MEDS: hydrALAzine 20 MG INJ IV ×4 (00:43→17:33)
[2017-07-14] MEDS: INSULIN ASPART [NOVOLOG] 3 ML PEN SC ×6 (00:44→21:06)
[2017-07-14] MEDS: ALBUTEROL/IPRATROPIUM (NEB) 3 ML AMP HHN ×4 (01:18→20:27)
[2017-07-14 05:20] LABS: ADD MAN DIFF? NO
[2017-07-14 05:27] LABS: ABNORMAL IP MESSAGE 1; BASOPHILS % 0.1 % (0.0-2.0); EOSINOPHILS # 0.2 10^3/ul (0.0-0.5); EOSINOPHILS % 2.3 % (0.0-7.0); HEMATOCRIT 24.6 % (37.0-47.0); HEMOGLOBIN 7.8 g/dl (12.0-16.0); LYMPHOCYTES # 0.9 10^3/ul (0.8-2.9); LYMPHOCYTES % 11.7 % (15.0-51.0); MEAN CORPUSCULAR HEMOGLOBIN 30.1 pg (29.0-33.0); MEAN CORPUSCULAR HGB CONC 31.7 g/dl (32.0-37.0); MEAN PLATELET VOLUME 10.3 fl (7.4-10.4); MONOCYTE # 0.7 10^3/ul (0.3-0.9); MONOCYTES % 8.3 % (0.0-11.0); NEUTROPHIL # 6.1 10^3/ul (1.6-7.5); NEUTROPHILS % 76.7 % (39.0-77.0); RED BLOOD COUNT 2.59 10^6/ul (4.20-5.40); RED CELL DISTRIBUTION WIDTH 18.3 % (11.5-14.5)
[2017-07-14] MEDS: PANTOPRAZOLE 40 MG INJ IV ×2 (05:38→17:33)
[2017-07-14] MEDS: NPH, HUMAN INSULIN ISOPHANE 3ML VIAL SC ×3 (05:42→21:07)
[2017-07-14 06:06] LABS: POSITIVE DIFF @See below
[2017-07-14 07:00] LABS: ANION GAP 6 (8-16); BLOOD UREA NITROGEN 61 mg/dl (7-20); CALCIUM 7.7 mg/dl (8.4-10.2); CARBON DIOXIDE 30 mmol/L (21-31); CHLORIDE 99 mmol/L (97-110); CREATININE 1.14 mg/dl (0.44-1.00); MAGNESIUM 1.9 mg/dl (1.7-2.5); PHOSPHORUS 3.4 mg/dl (2.5-4.9); POTASSIUM 4.2 mmol/L (3.5-5.1); SODIUM 131 mmol/L (135-144)
[2017-07-14 07:04] LABS: GLUCOSE 406 mg/dl (70-220)
[2017-07-14 07:22] LABS: PLATELET COUNT 95 10^3/UL (140-415)
[2017-07-14 08:31] LABS: ANISOCYTOSIS 1+ (0-0); BAND NEUTROPHILS #M 0.3 10^3/ul (0.0-0.6); BAND NEUTROPHILS % (M) 4 % (0-4); EOSINOPHILS % (M) 2 % (0-7); ERYTHROBLAST% (NRBC) (M) 2 % (0-0); GIANT THROMBO% (M) 1 % (0-0); HYPOCHROMASIA 1+ (0-0); LYMPHOCYTES #M 0.4 10^3/ul (0.8-2.9); LYMPHOCYTES % (M) 6 % (15-51); MONOCYTE #M 0.3 10^3/ul (0.3-0.9); MONOCYTES % (M) 4 % (0-11); MYELOCYTES % (M) 1 % (0-0); PLATELET ESTIMATE DECREASED; POLYCHROMASIA 1+ (0-0); SEG NEUT #M 6.7 10^3/ul (1.6-7.5); SEGMENTED NEUTROPHILS (M) % 83 % (39-77); SMUDGE%M 12 % (0-0)
[2017-07-14] MEDS: predniSONE 10 MG TAB PO (09:10)
[2017-07-14] MEDS: RANITIDINE 150 MG TAB PO ×2 (09:10→21:01)
[2017-07-14] MEDS: GABAPENTIN 100 MG CAP PO ×3 (09:10→21:02)
[2017-07-14] MEDS: FLUTICASONE 0.05% 16 GM NAS SPRAY NASAL ×2 (09:11→21:01)
[2017-07-14] MEDS: FUROSEMIDE 40 MG INJ IV (09:11)
[2017-07-14] MEDS: METOPROLOL 100 MG TAB GTB ×2 (09:11→21:03)
[2017-07-14] MEDS: OCULAR LUBRICANT 3.5 GM OPH OINT BOTH EYES ×4 (09:12→21:01)
[2017-07-14] MEDS: ARTIFICIAL TEARS 15 ML OPH BOTH EYES ×4 (09:12→21:01)
[2017-07-14] MEDS: NYSTATIN 30 GM POWDER BTL TOP ×2 (09:12→21:01)
[2017-07-14] MEDS: LEVETIRACETAM 1000 MG (PMX) 100 ML IVPB ×2 (09:27→21:01)
[2017-07-14] MEDS: DEXTROSE 5%-0.9% NACL 1,000 ML IV (12:35)
[2017-07-14] MEDS: CEFEPIME 2GM/50 ML (PMX) 50 ML IVPB (12:39)
[2017-07-14 13:01] LABS: IMMEDIATE SPIN CROSSMATCH 1 3
[2017-07-14] MEDS: PROPOFOL 100 ML IV (13:30)
[2017-07-14] MEDS: SOD CHLORIDE 0.9% 250 ML IV* (14:40)
[2017-07-14] MEDS: VANCOMYCIN 500MG/NS (PMX) 100 ML IVPB (17:32)
[2017-07-14] MEDS: COLLAGENASE 5 GM (UD JAR) TOP (18:00)
[2017-07-14] MEDS ORDERED: COLLAGENASE 5 GM (UD JAR) TOP (19:30)
[2017-07-14] MEDS: SENNA TAB PO (21:00)
[2017-07-14] MEDS: MONTELUKAST 10 MG TAB PO (21:01)
[2017-07-14] MEDS: PRAMIPEXOLE 0.125 MG TAB PO (21:02)
[2017-07-14] MEDS: predniSONE 5 MG TAB PO (21:02)
[2017-07-14] MEDS: morphine 2 MG INJ IV (22:35)
[2017-07-15] MEDS: PROPOFOL 100 ML IV ×2 (00:38→12:54)
[2017-07-15] MEDS: hydrALAzine 20 MG INJ IV ×4 (00:42→17:12)
[2017-07-15] MEDS: INSULIN ASPART [NOVOLOG] 3 ML PEN SC ×6 (00:45→21:00)
[2017-07-15] MEDS: ALBUTEROL/IPRATROPIUM (NEB) 3 ML AMP HHN ×4 (02:02→19:32)
[2017-07-15] MEDS: PANTOPRAZOLE 40 MG INJ IV ×2 (05:09→17:11)
[2017-07-15] MEDS: NPH, HUMAN INSULIN ISOPHANE 3ML VIAL SC ×3 (05:16→22:30)
[2017-07-15 05:35] LABS: ADD MAN DIFF? NO
[2017-07-15 05:37] LABS: BASOPHILS % 0.2 % (0.0-2.0); EOSINOPHILS % 0.4 % (0.0-7.0); HEMATOCRIT 28.9 % (37.0-47.0); HEMOGLOBIN 9.7 g/dl (12.0-16.0); LYMPHOCYTES # 1.5 10^3/ul (0.8-2.9); LYMPHOCYTES % 17.4 % (15.0-51.0); MEAN CORPUSCULAR HEMOGLOBIN 30.1 pg (29.0-33.0); MEAN CORPUSCULAR HGB CONC 33.6 g/dl (32.0-37.0); MEAN CORPUSCULAR VOLUME 89.8 fl (82.0-101.0); MEAN PLATELET VOLUME 10.6 fl (7.4-10.4); MONOCYTE # 0.8 10^3/ul (0.3-0.9); MONOCYTES % 9.7 % (0.0-11.0); NEUTROPHIL # 5.9 10^3/ul (1.6-7.5); NEUTROPHILS % 70.9 % (39.0-77.0); NUCLEATED RED BLOOD CELLS% 0.2 /100WBC (0.0-0.0); PLATELET COUNT 102 10^3/UL (140-415); RED BLOOD COUNT 3.22 10^6/ul (4.20-5.40); RED CELL DISTRIBUTION WIDTH 19.9 % (11.5-14.5)
[2017-07-15 05:37] LABS: WHITE BLOOD COUNT 8.3 10^3/ul (4.8-10.8)
[2017-07-15 06:16] LABS: ANION GAP 11 (8-16); BLOOD UREA NITROGEN 54 mg/dl (7-20); CALCIUM 8.4 mg/dl (8.4-10.2); CARBON DIOXIDE 30 mmol/L (21-31); CHLORIDE 107 mmol/L (97-110); GLUCOSE 159 mg/dl (70-220); PHOSPHORUS 3.2 mg/dl (2.5-4.9); SODIUM 144 mmol/L (135-144)
[2017-07-15] MEDS: DEXTROSE 5%-0.9% NACL 1,000 ML IV (08:21)
[2017-07-15] MEDS: OCULAR LUBRICANT 3.5 GM OPH OINT BOTH EYES ×4 (09:34→22:03)
[2017-07-15] MEDS: RANITIDINE 150 MG TAB PO ×2 (09:35→22:01)
[2017-07-15] MEDS: GABAPENTIN 100 MG CAP PO ×3 (09:35→22:00)
[2017-07-15] MEDS: ARTIFICIAL TEARS 15 ML OPH BOTH EYES ×4 (09:35→22:03)
[2017-07-15] MEDS: predniSONE 10 MG TAB PO (09:35)
[2017-07-15] MEDS: FUROSEMIDE 40 MG INJ IV (09:35)
[2017-07-15] MEDS: METOPROLOL 100 MG TAB GTB ×2 (09:36→22:01)
[2017-07-15] MEDS: FLUTICASONE 0.05% 16 GM NAS SPRAY NASAL ×2 (09:36→22:02)
[2017-07-15] MEDS: LEVETIRACETAM 1000 MG (PMX) 100 ML IVPB ×2 (09:37→22:02)
[2017-07-15] MEDS: NYSTATIN 30 GM POWDER BTL TOP ×2 (09:38→22:03)
[2017-07-15] MEDS: COLLAGENASE 5 GM (UD JAR) TOP (11:09)
[2017-07-15] MEDS: CEFEPIME 2GM/50 ML (PMX) 50 ML IVPB (12:35)
[2017-07-15] MEDS: VANCOMYCIN 500MG/NS (PMX) 100 ML IVPB (18:43)
[2017-07-15] MEDS: MONTELUKAST 10 MG TAB PO (22:00)
[2017-07-15] MEDS: morphine 2 MG INJ IV (22:00)
[2017-07-15] MEDS: SENNA TAB PO (22:00)
[2017-07-15] MEDS: predniSONE 5 MG TAB PO (22:01)
[2017-07-15] MEDS: PRAMIPEXOLE 0.125 MG TAB PO (22:01)
[2017-07-16] MEDS: ALBUTEROL/IPRATROPIUM (NEB) 3 ML AMP HHN ×4 (01:17→20:21)
[2017-07-16] MEDS: PROPOFOL 100 ML IV ×2 (01:30→12:07)
[2017-07-16] MEDS: hydrALAzine 20 MG INJ IV ×4 (02:13→17:22)
[2017-07-16] MEDS: INSULIN ASPART [NOVOLOG] 3 ML PEN SC ×7 (02:25→21:01)
[2017-07-16] MEDS: DEXTROSE 5%-0.9% NACL 1,000 ML IV (04:30)
[2017-07-16] MEDS: PANTOPRAZOLE 40 MG INJ IV ×2 (06:32→17:18)
[2017-07-16 07:06] LABS: ADD MAN DIFF? NO
[2017-07-16 07:10] LABS: WHITE BLOOD COUNT 9.4 10^3/ul (4.8-10.8)
[2017-07-16 07:10] LABS: BASOPHILS % 0.3 % (0.0-2.0); EOSINOPHILS # 0.1 10^3/ul (0.0-0.5); HEMOGLOBIN 10.3 g/dl (12.0-16.0); LYMPHOCYTES # 1.5 10^3/ul (0.8-2.9); LYMPHOCYTES % 15.5 % (15.0-51.0); MEAN CORPUSCULAR HEMOGLOBIN 30.7 pg (29.0-33.0); MEAN CORPUSCULAR HGB CONC 33.2 g/dl (32.0-37.0); MEAN CORPUSCULAR VOLUME 92.5 fl (82.0-101.0); MEAN PLATELET VOLUME 10.2 fl (7.4-10.4); MONOCYTE # 1.1 10^3/ul (0.3-0.9); MONOCYTES % 11.8 % (0.0-11.0); NEUTROPHIL # 6.6 10^3/ul (1.6-7.5); NEUTROPHILS % 70.4 % (39.0-77.0); NUCLEATED RED BLOOD CELLS% 0.2 /100WBC (0.0-0.0); PLATELET COUNT 106 10^3/UL (140-415); RED BLOOD COUNT 3.35 10^6/ul (4.20-5.40); RED CELL DISTRIBUTION WIDTH 19.8 % (11.5-14.5)
[2017-07-16] MEDS: NPH, HUMAN INSULIN ISOPHANE 3ML VIAL SC ×2 (07:30→15:38)
[2017-07-16 07:31] LABS: ALANINE AMINOTRANSFERASE 57 IU/L (13-69); ALBUMIN 2.5 g/dl (3.3-4.9); ALBUMIN/GLOBULIN RATIO 0.62; ALKALINE PHOSPHATASE 138 IU/L (42-121); ANION GAP 12 (8-16); ASPARTATE AMINO TRANSFERASE 92 IU/L (15-46); BILIRUBIN,INDIRECT 0.7 mg/dl (0-1.1); BILIRUBIN,TOTAL 0.7 mg/dl (0.2-1.3); BLOOD UREA NITROGEN 47 mg/dl (7-20); CALCIUM 8.4 mg/dl (8.4-10.2); CARBON DIOXIDE 27 mmol/L (21-31); CHLORIDE 110 mmol/L (97-110); CREATININE 1.06 mg/dl (0.44-1.00); GLUCOSE 126 mg/dl (70-220); MAGNESIUM 1.9 mg/dl (1.7-2.5); POTASSIUM 3.9 mmol/L (3.5-5.1); SODIUM 145 mmol/L (135-144); TOTAL PROTEIN 6.5 g/dl (6.1-8.1)
[2017-07-16] MEDS: LEVETIRACETAM (100 MG/ML) 5ML CUP GTB ×2 (09:01→20:42)
[2017-07-16] MEDS: FUROSEMIDE 40 MG INJ IV (09:04)
[2017-07-16] MEDS: FLUTICASONE 0.05% 16 GM NAS SPRAY NASAL ×2 (09:05→20:44)
[2017-07-16] MEDS: METOPROLOL 100 MG TAB GTB ×2 (09:05→20:42)
[2017-07-16] MEDS: GABAPENTIN 100 MG CAP PO ×3 (09:05→20:42)
[2017-07-16] MEDS: RANITIDINE 150 MG TAB PO ×2 (09:05→20:43)
[2017-07-16] MEDS: OCULAR LUBRICANT 3.5 GM OPH OINT BOTH EYES ×4 (09:05→20:42)
[2017-07-16] MEDS: predniSONE 10 MG TAB PO (09:05)
[2017-07-16] MEDS: ARTIFICIAL TEARS 15 ML OPH BOTH EYES ×4 (09:05→20:44)
[2017-07-16] MEDS: COLLAGENASE 5 GM (UD JAR) TOP (09:06)
[2017-07-16] MEDS: NYSTATIN 30 GM POWDER BTL TOP ×2 (09:06→20:44)
[2017-07-16] MEDS: CEFEPIME 2GM/50 ML (PMX) 50 ML IVPB (12:06)
[2017-07-16] MEDS: morphine LIQ (10 MG/5 ML) CUP PO (16:52)
[2017-07-16] MEDS: HYDROCODONE/APAP (7.5/325) TAB PO (17:55)
[2017-07-16] MEDS: PRAMIPEXOLE 0.125 MG TAB PO (20:43)
[2017-07-16] MEDS: MONTELUKAST 10 MG TAB PO (20:43)
[2017-07-16] MEDS: predniSONE 5 MG TAB PO (20:43)
[2017-07-16] MEDS: SENNA TAB PO (20:45)
[2017-07-16] MEDS: morphine 2 MG INJ IV (21:00)
[2017-07-16] MEDS: INSULIN GLARGINE [LANtus] 3 ML PEN SC (21:01)
[2017-07-17] MEDS: hydrALAzine 20 MG INJ IV ×4 (00:09→17:44)
[2017-07-17] MEDS: DEXTROSE 5%-0.9% NACL 1,000 ML IV ×2 (00:30→03:22)
[2017-07-17] MEDS: PROPOFOL 100 ML IV (01:30)
[2017-07-17] MEDS: ALBUTEROL/IPRATROPIUM (NEB) 3 ML AMP HHN ×4 (02:46→19:37)
[2017-07-17] MEDS: PANTOPRAZOLE 40 MG INJ IV ×2 (05:10→17:44)
[2017-07-17] MEDS: predniSONE 20 MG TAB PO (06:39)
[2017-07-17] MEDS: INSULIN ASPART [NOVOLOG] 3 ML PEN SC ×7 (08:43→21:38)
[2017-07-17] MEDS: LEVETIRACETAM (100 MG/ML) 5ML CUP GTB ×2 (08:52→21:31)
[2017-07-17] MEDS: COLLAGENASE 5 GM (UD JAR) TOP (08:52)
[2017-07-17] MEDS: FUROSEMIDE 40 MG INJ IV (08:53)
[2017-07-17] MEDS: ARTIFICIAL TEARS 15 ML OPH BOTH EYES ×4 (08:54→21:29)
[2017-07-17] MEDS: GABAPENTIN 100 MG CAP PO ×3 (08:54→21:31)
[2017-07-17] MEDS: RANITIDINE 150 MG TAB PO ×2 (08:54→21:32)
[2017-07-17] MEDS: METOPROLOL 100 MG TAB GTB ×2 (08:54→21:32)
[2017-07-17] MEDS: FLUTICASONE 0.05% 16 GM NAS SPRAY NASAL ×2 (08:55→21:33)
[2017-07-17] MEDS: NYSTATIN 30 GM POWDER BTL TOP ×2 (08:56→21:34)
[2017-07-17] MEDS: OCULAR LUBRICANT 3.5 GM OPH OINT BOTH EYES ×4 (08:56→21:29)
[2017-07-17 09:19] LABS: ADD MAN DIFF? NO
[2017-07-17 09:21] LABS: BASOPHILS % 0.3 % (0.0-2.0); EOSINOPHILS # 0.1 10^3/ul (0.0-0.5); HEMATOCRIT 32.5 % (37.0-47.0); HEMOGLOBIN 10.5 g/dl (12.0-16.0); LYMPHOCYTES # 1.3 10^3/ul (0.8-2.9); LYMPHOCYTES % 12.8 % (15.0-51.0); MEAN CORPUSCULAR HEMOGLOBIN 29.9 pg (29.0-33.0); MEAN CORPUSCULAR HGB CONC 32.3 g/dl (32.0-37.0); MEAN CORPUSCULAR VOLUME 92.6 fl (82.0-101.0); MEAN PLATELET VOLUME 10.5 fl (7.4-10.4); MONOCYTE # 1.2 10^3/ul (0.3-0.9); MONOCYTES % 11.7 % (0.0-11.0); NEUTROPHIL # 7.4 10^3/ul (1.6-7.5); NEUTROPHILS % 73.5 % (39.0-77.0); NUCLEATED RED BLOOD CELLS% 0.2 /100WBC (0.0-0.0); PLATELET COUNT 112 10^3/UL (140-415); RED BLOOD COUNT 3.51 10^6/ul (4.20-5.40)
[2017-07-17 09:57] LABS: ALANINE AMINOTRANSFERASE 67 IU/L (13-69); ALBUMIN 2.6 g/dl (3.3-4.9); ALBUMIN/GLOBULIN RATIO 0.66; ALKALINE PHOSPHATASE 149 IU/L (42-121); ANION GAP 12 (8-16); ASPARTATE AMINO TRANSFERASE 89 IU/L (15-46); BILIRUBIN,INDIRECT 0.8 mg/dl (0-1.1); BILIRUBIN,TOTAL 0.8 mg/dl (0.2-1.3); BLOOD UREA NITROGEN 39 mg/dl (7-20); CALCIUM 8.6 mg/dl (8.4-10.2); CARBON DIOXIDE 28 mmol/L (21-31); CHLORIDE 109 mmol/L (97-110); CREATININE 1.11 mg/dl (0.44-1.00); GLUCOSE 153 mg/dl (70-220); MAGNESIUM 1.7 mg/dl (1.7-2.5); POTASSIUM 3.6 mmol/L (3.5-5.1); SODIUM 145 mmol/L (135-144); TOTAL PROTEIN 6.5 g/dl (6.1-8.1)
[2017-07-17] MEDS: CEFEPIME 2GM/50 ML (PMX) 50 ML IVPB (11:54)
[2017-07-17] MEDS: predniSONE 10 MG TAB PO (13:19)
[2017-07-17] MEDS: PRAMIPEXOLE 0.125 MG TAB PO (21:31)
[2017-07-17] MEDS: predniSONE 5 MG TAB PO (21:32)
[2017-07-17] MEDS: SENNA TAB PO (21:32)
[2017-07-17] MEDS: MONTELUKAST 10 MG TAB PO (21:32)
[2017-07-17] MEDS: INSULIN GLARGINE [LANtus] 3 ML PEN SC (21:38)
[2017-07-17] MEDS: HYDROCODONE/APAP (7.5/325) TAB PO (21:41)
[2017-07-18] MEDS: ALBUTEROL/IPRATROPIUM (NEB) 3 ML AMP HHN ×4 (01:24→19:31)
[2017-07-18] MEDS: ACCU-CHEK XX (02:00)
[2017-07-18] MEDS: PANTOPRAZOLE 40 MG INJ IV ×2 (06:35→17:17)
[2017-07-18] MEDS: hydrALAzine 20 MG INJ IV ×5 (06:35→17:17)
[2017-07-18 07:30] LABS: ADD MAN DIFF? NO
[2017-07-18 07:33] LABS: WHITE BLOOD COUNT 10.3 10^3/ul (4.8-10.8)
[2017-07-18 07:33] LABS: BASOPHILS % 0.2 % (0.0-2.0); EOSINOPHILS # 0.1 10^3/ul (0.0-0.5); EOSINOPHILS % 0.5 % (0.0-7.0); HEMATOCRIT 31.9 % (37.0-47.0); HEMOGLOBIN 10.2 g/dl (12.0-16.0); LYMPHOCYTES # 1.5 10^3/ul (0.8-2.9); LYMPHOCYTES % 14.1 % (15.0-51.0); MEAN CORPUSCULAR HEMOGLOBIN 29.7 pg (29.0-33.0); MEAN CORPUSCULAR VOLUME 92.7 fl (82.0-101.0); MEAN PLATELET VOLUME 10.4 fl (7.4-10.4); MONOCYTE # 1.1 10^3/ul (0.3-0.9); MONOCYTES % 10.9 % (0.0-11.0); NEUTROPHIL # 7.6 10^3/ul (1.6-7.5); NEUTROPHILS % 73.5 % (39.0-77.0); PLATELET COUNT 111 10^3/UL (140-415); RED BLOOD COUNT 3.44 10^6/ul (4.20-5.40); RED CELL DISTRIBUTION WIDTH 18.2 % (11.5-14.5)
[2017-07-18 08:03] LABS: ANION GAP 11 (8-16); BLOOD UREA NITROGEN 35 mg/dl (7-20); CALCIUM 8.5 mg/dl (8.4-10.2); CARBON DIOXIDE 29 mmol/L (21-31); CHLORIDE 107 mmol/L (97-110); CREATININE 1.04 mg/dl (0.44-1.00); GLUCOSE 158 mg/dl (70-220); POTASSIUM 3.5 mmol/L (3.5-5.1); SODIUM 143 mmol/L (135-144)
[2017-07-18] MEDS: INSULIN ASPART [NOVOLOG] 3 ML PEN SC ×7 (08:30→21:01)
[2017-07-18] MEDS: OCULAR LUBRICANT 3.5 GM OPH OINT BOTH EYES ×4 (08:31→20:49)
[2017-07-18] MEDS: LEVETIRACETAM (100 MG/ML) 5ML CUP GTB ×2 (08:32→20:50)
[2017-07-18] MEDS: ARTIFICIAL TEARS 15 ML OPH BOTH EYES ×4 (08:32→20:50)
[2017-07-18] MEDS: FLUTICASONE 0.05% 16 GM NAS SPRAY NASAL ×2 (08:33→20:50)
[2017-07-18] MEDS: FUROSEMIDE 40 MG INJ IV (08:33)
[2017-07-18] MEDS: METOPROLOL 100 MG TAB GTB ×2 (08:33→21:04)
[2017-07-18] MEDS: GABAPENTIN 100 MG CAP PO ×3 (08:34→20:52)
[2017-07-18] MEDS: RANITIDINE 150 MG TAB PO ×2 (08:34→20:52)
[2017-07-18] MEDS: predniSONE 20 MG TAB PO (08:34)
[2017-07-18] MEDS: NYSTATIN 30 GM POWDER BTL TOP ×2 (08:44→21:04)
[2017-07-18] MEDS: COLLAGENASE 5 GM (UD JAR) TOP (08:44)
[2017-07-18] MEDS: predniSONE 10 MG TAB PO (12:05)
[2017-07-18] MEDS: CEFEPIME 2GM/50 ML (PMX) 50 ML IVPB (12:05)
[2017-07-18] MEDS: HYDROCODONE/APAP (7.5/325) TAB PO (12:21)
[2017-07-18] MEDS: DEXTROSE 5%-0.9% NACL 1,000 ML IV ×2 (16:30→23:19)
[2017-07-18] MEDS: predniSONE 5 MG TAB PO (20:52)
[2017-07-18] MEDS: MONTELUKAST 10 MG TAB PO (20:52)
[2017-07-18] MEDS: INSULIN GLARGINE [LANtus] 3 ML PEN SC (20:55)
[2017-07-18] MEDS: SENNA TAB PO (21:04)
[2017-07-18] MEDS: PRAMIPEXOLE 0.125 MG TAB PO (21:04)
[2017-07-18] MEDS: morphine LIQ (10 MG/5 ML) CUP PO (21:50)
[2017-07-19] MEDS: hydrALAzine 20 MG INJ IV ×3 (01:30→12:34)
[2017-07-19] MEDS: ALBUTEROL/IPRATROPIUM (NEB) 3 ML AMP HHN ×4 (01:34→19:25)
[2017-07-19] MEDS: ACCU-CHEK XX (02:53)
[2017-07-19] MEDS: PANTOPRAZOLE 40 MG INJ IV (06:16)
[2017-07-19 08:00] LABS: ADD MAN DIFF? NO
[2017-07-19 08:09] LABS: BASOPHILS % 0.1 % (0.0-2.0); EOSINOPHILS # 0.1 10^3/ul (0.0-0.5); EOSINOPHILS % 0.6 % (0.0-7.0); HEMATOCRIT 31.6 % (37.0-47.0); HEMOGLOBIN 10.4 g/dl (12.0-16.0); LYMPHOCYTES # 1.3 10^3/ul (0.8-2.9); LYMPHOCYTES % 13.4 % (15.0-51.0); MEAN CORPUSCULAR HEMOGLOBIN 30.3 pg (29.0-33.0); MEAN CORPUSCULAR HGB CONC 32.9 g/dl (32.0-37.0); MEAN CORPUSCULAR VOLUME 92.1 fl (82.0-101.0); MEAN PLATELET VOLUME 10.7 fl (7.4-10.4); MONOCYTE # 1.5 10^3/ul (0.3-0.9); MONOCYTES % 15.1 % (0.0-11.0); NEUTROPHIL # 6.8 10^3/ul (1.6-7.5); NEUTROPHILS % 70.3 % (39.0-77.0); PLATELET COUNT 126 10^3/UL (140-415); RED BLOOD COUNT 3.43 10^6/ul (4.20-5.40); RED CELL DISTRIBUTION WIDTH 18.1 % (11.5-14.5)
[2017-07-19 08:09] LABS: WHITE BLOOD COUNT 9.6 10^3/ul (4.8-10.8)
[2017-07-19] MEDS: INSULIN ASPART [NOVOLOG] 3 ML PEN SC ×7 (08:22→23:53)
[2017-07-19] MEDS: ARTIFICIAL TEARS 15 ML OPH BOTH EYES ×5 (08:24→23:28)
[2017-07-19] MEDS: OCULAR LUBRICANT 3.5 GM OPH OINT BOTH EYES ×6 (08:24→23:49)
[2017-07-19] MEDS: LEVETIRACETAM (100 MG/ML) 5ML CUP GTB ×3 (08:24→23:27)
[2017-07-19] MEDS: GABAPENTIN 100 MG CAP PO ×2 (08:25→12:35)
[2017-07-19] MEDS: RANITIDINE 150 MG TAB PO ×3 (08:25→23:25)
[2017-07-19] MEDS: METOPROLOL 100 MG TAB GTB (08:25)
[2017-07-19] MEDS: FUROSEMIDE 40 MG INJ IV (08:25)
[2017-07-19] MEDS: COLLAGENASE 5 GM (UD JAR) TOP (08:26)
[2017-07-19] MEDS: NYSTATIN 30 GM POWDER BTL TOP ×3 (08:26→23:29)
[2017-07-19] MEDS: FLUTICASONE 0.05% 16 GM NAS SPRAY NASAL ×3 (08:26→23:27)
[2017-07-19 08:31] LABS: ANION GAP 12 (8-16); BLOOD UREA NITROGEN 33 mg/dl (7-20); CALCIUM 8.4 mg/dl (8.4-10.2); CARBON DIOXIDE 27 mmol/L (21-31); CHLORIDE 105 mmol/L (97-110); CREATININE 1.02 mg/dl (0.44-1.00); GLUCOSE 165 mg/dl (70-220); MAGNESIUM 1.6 mg/dl (1.7-2.5); POTASSIUM 3.7 mmol/L (3.5-5.1); SODIUM 140 mmol/L (135-144)
[2017-07-19] MEDS: predniSONE 20 MG TAB PO (08:34)
[2017-07-19] MEDS: LORAZEPAM 2 MG INJ IV (10:57)
[2017-07-19] MEDS: predniSONE 10 MG TAB PO (12:34)
[2017-07-19] MEDS: predniSONE 5 MG TAB PO ×2 (20:53→23:24)
[2017-07-19] MEDS: GABAPENTIN 300 MG CAP PO ×2 (20:53→23:26)
[2017-07-19] MEDS: PRAMIPEXOLE 0.125 MG TAB PO ×2 (20:54→23:26)
[2017-07-19] MEDS: METOPROLOL 100 MG TAB PO ×2 (20:54→23:24)
[2017-07-19] MEDS: SENNA TAB PO ×2 (20:54→23:26)
[2017-07-19] MEDS: MONTELUKAST 10 MG TAB PO ×2 (20:56→23:27)
[2017-07-19] MEDS: INSULIN GLARGINE [LANtus] 3 ML PEN SC ×2 (23:40→23:47)
[2017-07-20] MEDS: ALBUTEROL/IPRATROPIUM (NEB) 3 ML AMP HHN ×4 (01:44→19:14)
[2017-07-20] MEDS: ACCU-CHEK XX (02:00)
[2017-07-20] MEDS: DEXTROSE 5%-0.9% NACL 1,000 ML IV (02:13)
[2017-07-20] MEDS: PANTOPRAZOLE (EC) 40 MG TAB PO (06:18)
[2017-07-20 07:07] LABS: ADD MAN DIFF? NO
[2017-07-20 07:18] LABS: BASOPHILS % 0.1 % (0.0-2.0); EOSINOPHILS % 0.4 % (0.0-7.0); HEMATOCRIT 30.3 % (37.0-47.0); HEMOGLOBIN 9.8 g/dl (12.0-16.0); LYMPHOCYTES # 1.1 10^3/ul (0.8-2.9); LYMPHOCYTES % 14.8 % (15.0-51.0); MEAN CORPUSCULAR HEMOGLOBIN 29.9 pg (29.0-33.0); MEAN CORPUSCULAR HGB CONC 32.3 g/dl (32.0-37.0); MEAN CORPUSCULAR VOLUME 92.4 fl (82.0-101.0); MONOCYTES % 13.9 % (0.0-11.0); NEUTROPHIL # 5.3 10^3/ul (1.6-7.5); NEUTROPHILS % 70.1 % (39.0-77.0); PLATELET COUNT 109 10^3/UL (140-415); RED BLOOD COUNT 3.28 10^6/ul (4.20-5.40); RED CELL DISTRIBUTION WIDTH 17.6 % (11.5-14.5)
[2017-07-20 07:18] LABS: WHITE BLOOD COUNT 7.5 10^3/ul (4.8-10.8)
[2017-07-20 07:35] LABS: ALANINE AMINOTRANSFERASE 69 IU/L (13-69); ALBUMIN 2.3 g/dl (3.3-4.9); ALBUMIN/GLOBULIN RATIO 0.67; ALKALINE PHOSPHATASE 131 IU/L (42-121); ANION GAP 9 (8-16); ASPARTATE AMINO TRANSFERASE 71 IU/L (15-46); BILIRUBIN,INDIRECT 0.5 mg/dl (0-1.1); BILIRUBIN,TOTAL 0.5 mg/dl (0.2-1.3); BLOOD UREA NITROGEN 31 mg/dl (7-20); CALCIUM 8.7 mg/dl (8.4-10.2); CARBON DIOXIDE 31 mmol/L (21-31); CHLORIDE 105 mmol/L (97-110); CREATININE 1.06 mg/dl (0.44-1.00); GLUCOSE 181 mg/dl (70-220); POTASSIUM 3.5 mmol/L (3.5-5.1); SODIUM 141 mmol/L (135-144); TOTAL PROTEIN 5.7 g/dl (6.1-8.1)
[2017-07-20] MEDS: INSULIN ASPART [NOVOLOG] 3 ML PEN SC ×7 (07:45→21:05)
[2017-07-20] MEDS: predniSONE 20 MG TAB PO (07:47)
[2017-07-20] MEDS: ARTIFICIAL TEARS 15 ML OPH BOTH EYES ×4 (08:28→21:10)
[2017-07-20] MEDS: LEVETIRACETAM (100 MG/ML) 5ML CUP GTB ×2 (08:28→21:08)
[2017-07-20] MEDS: OCULAR LUBRICANT 3.5 GM OPH OINT BOTH EYES ×4 (08:28→21:09)
[2017-07-20] MEDS: FLUTICASONE 0.05% 16 GM NAS SPRAY NASAL ×2 (08:28→21:09)
[2017-07-20] MEDS: NYSTATIN 30 GM POWDER BTL TOP ×2 (08:28→21:10)
[2017-07-20] MEDS: COLLAGENASE 5 GM (UD JAR) TOP (08:28)
[2017-07-20] MEDS: FUROSEMIDE 40 MG INJ IV (08:29)
[2017-07-20] MEDS: METOPROLOL 100 MG TAB PO ×2 (08:29→21:09)
[2017-07-20] MEDS: GABAPENTIN 300 MG CAP PO ×3 (08:29→21:10)
[2017-07-20] MEDS: predniSONE 10 MG TAB PO (12:01)
[2017-07-20] MEDS: MAGNESIUM SULFATE 2 GM/50 ML 50 ML IVPB (13:19)
[2017-07-20] MEDS: INSULIN GLARGINE [LANtus] 3 ML PEN SC (21:02)
[2017-07-20] MEDS: SENNA TAB PO (21:08)
[2017-07-20] MEDS: MONTELUKAST 10 MG TAB PO (21:08)
[2017-07-20] MEDS: RANITIDINE 150 MG TAB PO (21:08)
[2017-07-20] MEDS: PRAMIPEXOLE 0.125 MG TAB PO (21:09)
[2017-07-20] MEDS: predniSONE 5 MG TAB PO (21:09)
[2017-07-20] MEDS: POTASSIUM CHLORIDE 100 ML IVPB (21:34)
[2017-07-21] MEDS: POTASSIUM CHLORIDE 100 ML IVPB
[2017-07-21] MEDS: ALBUTEROL/IPRATROPIUM (NEB) 3 ML AMP HHN ×4 (01:28→19:17)
[2017-07-21] MEDS: ACCU-CHEK XX (02:00)
[2017-07-21] MEDS: DEXTROSE 5%-0.9% NACL 1,000 ML IV (05:48)
[2017-07-21] MEDS: PANTOPRAZOLE (EC) 40 MG TAB PO (05:48)
[2017-07-21] MEDS: INSULIN ASPART [NOVOLOG] 3 ML PEN SC ×7 (07:40→20:03)
[2017-07-21] MEDS: GABAPENTIN 300 MG CAP PO ×3 (08:18→21:04)
[2017-07-21] MEDS: predniSONE 20 MG TAB PO (08:18)
[2017-07-21] MEDS: FUROSEMIDE 40 MG INJ IV (08:18)
[2017-07-21] MEDS: METOPROLOL 100 MG TAB PO ×2 (08:18→21:05)
[2017-07-21] MEDS: NYSTATIN 30 GM POWDER BTL TOP ×2 (08:19→21:05)
[2017-07-21] MEDS: ARTIFICIAL TEARS 15 ML OPH BOTH EYES ×4 (08:19→21:05)
[2017-07-21] MEDS: FLUTICASONE 0.05% 16 GM NAS SPRAY NASAL ×2 (08:19→21:05)
[2017-07-21] MEDS: OCULAR LUBRICANT 3.5 GM OPH OINT BOTH EYES ×4 (08:19→21:05)
[2017-07-21] MEDS: LEVETIRACETAM (100 MG/ML) 5ML CUP GTB ×2 (08:19→21:03)
[2017-07-21] MEDS: COLLAGENASE 5 GM (UD JAR) TOP (08:20)
[2017-07-21] MEDS: predniSONE 5 MG TAB PO ×2 (12:39→21:06)
[2017-07-21] MEDS: SALMETEROL/FLUTICASONE 500/50 INHA INH ×2 (12:39→21:02)
[2017-07-21] MEDS ORDERED: predniSONE 10 MG TAB PO (12:50)
[2017-07-21] MEDS: INSULIN GLARGINE [LANtus] 3 ML PEN SC (20:04)
[2017-07-21] MEDS: RANITIDINE 150 MG TAB PO (21:03)
[2017-07-21] MEDS: SENNA TAB PO (21:04)
[2017-07-21] MEDS: MONTELUKAST 10 MG TAB PO (21:04)
[2017-07-21] MEDS: PRAMIPEXOLE 0.125 MG TAB PO (21:04)
[2017-07-22] MEDS: ACCU-CHEK XX (02:00)
[2017-07-22] MEDS: ALBUTEROL/IPRATROPIUM (NEB) 3 ML AMP HHN ×4 (02:17→19:20)
[2017-07-22] MEDS: PANTOPRAZOLE (EC) 40 MG TAB PO (06:30)
[2017-07-22 06:33] LABS: ADD MAN DIFF? NO
[2017-07-22 06:40] LABS: EOSINOPHILS % 0.7 % (0.0-7.0); HEMATOCRIT 29.6 % (37.0-47.0); HEMOGLOBIN 9.8 g/dl (12.0-16.0); LYMPHOCYTES % 18.6 % (15.0-51.0); MEAN CORPUSCULAR HEMOGLOBIN 29.9 pg (29.0-33.0); MEAN CORPUSCULAR HGB CONC 33.1 g/dl (32.0-37.0); MEAN CORPUSCULAR VOLUME 90.2 fl (82.0-101.0); MEAN PLATELET VOLUME 11.2 fl (7.4-10.4); MONOCYTE # 0.8 10^3/ul (0.3-0.9); MONOCYTES % 14.7 % (0.0-11.0); NEUTROPHIL # 3.6 10^3/ul (1.6-7.5); NEUTROPHILS % 65.3 % (39.0-77.0); PLATELET COUNT 111 10^3/UL (140-415); RED BLOOD COUNT 3.28 10^6/ul (4.20-5.40); RED CELL DISTRIBUTION WIDTH 17.8 % (11.5-14.5)
[2017-07-22 06:40] LABS: WHITE BLOOD COUNT 5.6 10^3/ul (4.8-10.8)
[2017-07-22 06:57] LABS: ALANINE AMINOTRANSFERASE 184 IU/L (13-69); ALBUMIN 2.2 g/dl (3.3-4.9); ALBUMIN/GLOBULIN RATIO 0.62; ALKALINE PHOSPHATASE 262 IU/L (42-121); ANION GAP 10 (8-16); ASPARTATE AMINO TRANSFERASE 197 IU/L (15-46); BILIRUBIN,INDIRECT 0.5 mg/dl (0-1.1); BILIRUBIN,TOTAL 0.5 mg/dl (0.2-1.3); BLOOD UREA NITROGEN 38 mg/dl (7-20); CALCIUM 8.2 mg/dl (8.4-10.2); CARBON DIOXIDE 30 mmol/L (21-31); CHLORIDE 105 mmol/L (97-110); CREATININE 0.93 mg/dl (0.44-1.00); GLUCOSE 153 mg/dl (70-220); POTASSIUM 3.7 mmol/L (3.5-5.1); SODIUM 141 mmol/L (135-144); TOTAL PROTEIN 5.7 g/dl (6.1-8.1)
[2017-07-22] MEDS: predniSONE 5 MG TAB PO ×3 (07:25→20:56)
[2017-07-22] MEDS ORDERED: predniSONE 20 MG TAB PO (07:25)
[2017-07-22] MEDS: INSULIN ASPART [NOVOLOG] 3 ML PEN SC ×7 (07:55→21:06)
[2017-07-22] MEDS: GABAPENTIN 300 MG CAP PO ×3 (08:53→20:56)
[2017-07-22] MEDS: ARTIFICIAL TEARS 15 ML OPH BOTH EYES ×4 (08:54→20:57)
[2017-07-22] MEDS: METOPROLOL 100 MG TAB PO ×2 (08:54→20:56)
[2017-07-22] MEDS: FUROSEMIDE 40 MG INJ IV (08:54)
[2017-07-22] MEDS: SALMETEROL/FLUTICASONE 500/50 INHA INH ×2 (08:54→20:56)
[2017-07-22] MEDS: NYSTATIN 30 GM POWDER BTL TOP ×2 (08:55→20:55)
[2017-07-22] MEDS: FLUTICASONE 0.05% 16 GM NAS SPRAY NASAL ×2 (08:55→20:56)
[2017-07-22] MEDS: OCULAR LUBRICANT 3.5 GM OPH OINT BOTH EYES ×4 (08:55→20:57)
[2017-07-22] MEDS: COLLAGENASE 5 GM (UD JAR) TOP (08:55)
[2017-07-22] MEDS ORDERED: LEVETIRACETAM (100 MG/ML) 5ML CUP GTB (09:00)
[2017-07-22] MEDS: LEVETIRACETAM (100 MG/ML PO SYG) GTB ×2 (10:00→20:56)
[2017-07-22] MEDS: HYDROCODONE/APAP (7.5/325) TAB PO ×2 (18:22→22:01)
[2017-07-22] MEDS: RANITIDINE 150 MG TAB PO (20:55)
[2017-07-22] MEDS: SENNA TAB PO (20:55)
[2017-07-22] MEDS: MONTELUKAST 10 MG TAB PO (20:56)
[2017-07-22] MEDS: INSULIN GLARGINE [LANtus] 3 ML PEN SC (21:05)
[2017-07-22] MEDS: PRAMIPEXOLE 0.125 MG TAB PO (21:07)
[2017-07-23] MEDS: ALBUTEROL/IPRATROPIUM (NEB) 3 ML AMP HHN ×4 (01:56→19:30)
[2017-07-23] MEDS: ACCU-CHEK XX (03:12)
[2017-07-23] MEDS: PANTOPRAZOLE (EC) 40 MG TAB PO (05:46)
[2017-07-23 06:51] LABS: WHITE BLOOD COUNT 6.4 10^3/ul (4.8-10.8)
[2017-07-23 06:51] LABS: ADD MAN DIFF? NO; BASOPHILS % 0.5 % (0.0-2.0); EOSINOPHILS # 0.1 10^3/ul (0.0-0.5); HEMATOCRIT 31.3 % (37.0-47.0); HEMOGLOBIN 10.2 g/dl (12.0-16.0); LYMPHOCYTES # 1.6 10^3/ul (0.8-2.9); LYMPHOCYTES % 24.7 % (15.0-51.0); MEAN CORPUSCULAR HEMOGLOBIN 30.2 pg (29.0-33.0); MEAN CORPUSCULAR HGB CONC 32.6 g/dl (32.0-37.0); MEAN CORPUSCULAR VOLUME 92.6 fl (82.0-101.0); MEAN PLATELET VOLUME 11.3 fl (7.4-10.4); MONOCYTE # 1.1 10^3/ul (0.3-0.9); MONOCYTES % 17.1 % (0.0-11.0); NEUTROPHIL # 3.5 10^3/ul (1.6-7.5); NEUTROPHILS % 54.6 % (39.0-77.0); PLATELET COUNT 137 10^3/UL (140-415); RED BLOOD COUNT 3.38 10^6/ul (4.20-5.40); RED CELL DISTRIBUTION WIDTH 18.1 % (11.5-14.5)
[2017-07-23 07:26] LABS: ALANINE AMINOTRANSFERASE 203 IU/L (13-69); ALBUMIN 2.2 g/dl (3.3-4.9); ALBUMIN/GLOBULIN RATIO 0.64; ALKALINE PHOSPHATASE 321 IU/L (42-121); ANION GAP 6 (8-16); ASPARTATE AMINO TRANSFERASE 198 IU/L (15-46); BILIRUBIN,INDIRECT 0.5 mg/dl (0-1.1); BILIRUBIN,TOTAL 0.5 mg/dl (0.2-1.3); BLOOD UREA NITROGEN 42 mg/dl (7-20); CALCIUM 8.7 mg/dl (8.4-10.2); CARBON DIOXIDE 34 mmol/L (21-31); CHLORIDE 103 mmol/L (97-110); CREATININE 1.08 mg/dl (0.44-1.00); GLUCOSE 177 mg/dl (70-220); MAGNESIUM 1.8 mg/dl (1.7-2.5); POTASSIUM 3.9 mmol/L (3.5-5.1); SODIUM 139 mmol/L (135-144); TOTAL PROTEIN 5.6 g/dl (6.1-8.1)
[2017-07-23] MEDS: LEVETIRACETAM (100 MG/ML PO SYG) GTB ×2 (08:27→22:05)
[2017-07-23] MEDS: NYSTATIN 30 GM POWDER BTL TOP ×2 (08:27→21:59)
[2017-07-23] MEDS: GABAPENTIN 300 MG CAP PO ×3 (08:27→22:06)
[2017-07-23] MEDS: predniSONE 5 MG TAB PO ×3 (08:27→22:07)
[2017-07-23] MEDS: SALMETEROL/FLUTICASONE 500/50 INHA INH ×2 (08:27→22:10)
[2017-07-23] MEDS: FLUTICASONE 0.05% 16 GM NAS SPRAY NASAL ×2 (08:28→22:09)
[2017-07-23] MEDS: METOPROLOL 100 MG TAB PO ×2 (08:28→22:08)
[2017-07-23] MEDS: COLLAGENASE 5 GM (UD JAR) TOP (08:29)
[2017-07-23] MEDS: FUROSEMIDE 40 MG INJ IV (08:46)
[2017-07-23] MEDS: OCULAR LUBRICANT 3.5 GM OPH OINT BOTH EYES ×4 (08:50→22:10)
[2017-07-23] MEDS: ARTIFICIAL TEARS 15 ML OPH BOTH EYES ×4 (08:50→22:16)
[2017-07-23] MEDS: INSULIN ASPART [NOVOLOG] 3 ML PEN SC ×8 (09:05→23:08)
[2017-07-23] MEDS: SENNA TAB PO (22:05)
[2017-07-23] MEDS: MONTELUKAST 10 MG TAB PO (22:05)
[2017-07-23] MEDS: PRAMIPEXOLE 0.125 MG TAB PO (22:07)
[2017-07-23] MEDS: RANITIDINE 150 MG TAB PO (22:08)
[2017-07-23] MEDS: HYDROCODONE/APAP (7.5/325) TAB PO (22:08)
[2017-07-23] MEDS: INSULIN GLARGINE [LANtus] 3 ML PEN SC (22:11)
[2017-07-24] MEDS: ALBUTEROL/IPRATROPIUM (NEB) 3 ML AMP HHN ×4 (01:30→20:02)
[2017-07-24] MEDS: ACCU-CHEK XX (02:45)
[2017-07-24] MEDS: PANTOPRAZOLE (EC) 40 MG TAB PO (05:28)
[2017-07-24 08:05] LABS: ADD MAN DIFF? NO
[2017-07-24 08:06] LABS: WHITE BLOOD COUNT 6.4 10^3/ul (4.8-10.8)
[2017-07-24 08:06] LABS: BASOPHILS % 0.2 % (0.0-2.0); EOSINOPHILS # 0.1 10^3/ul (0.0-0.5); EOSINOPHILS % 1.1 % (0.0-7.0); HEMATOCRIT 30.4 % (37.0-47.0); LYMPHOCYTES # 1.5 10^3/ul (0.8-2.9); LYMPHOCYTES % 24.1 % (15.0-51.0); MEAN CORPUSCULAR HEMOGLOBIN 30.2 pg (29.0-33.0); MEAN CORPUSCULAR HGB CONC 32.9 g/dl (32.0-37.0); MEAN CORPUSCULAR VOLUME 91.8 fl (82.0-101.0); MEAN PLATELET VOLUME 10.8 fl (7.4-10.4); MONOCYTE # 1.1 10^3/ul (0.3-0.9); MONOCYTES % 16.6 % (0.0-11.0); NEUTROPHIL # 3.7 10^3/ul (1.6-7.5); NEUTROPHILS % 57.2 % (39.0-77.0); PLATELET COUNT 145 10^3/UL (140-415); RED BLOOD COUNT 3.31 10^6/ul (4.20-5.40); RED CELL DISTRIBUTION WIDTH 18.2 % (11.5-14.5)
[2017-07-24 08:29] LABS: ALANINE AMINOTRANSFERASE 152 IU/L (13-69); ALBUMIN 2.3 g/dl (3.3-4.9); ALBUMIN/GLOBULIN RATIO 0.65; ALKALINE PHOSPHATASE 279 IU/L (42-121); ANION GAP 11 (8-16); ASPARTATE AMINO TRANSFERASE 124 IU/L (15-46); BILIRUBIN,INDIRECT 0.5 mg/dl (0-1.1); BILIRUBIN,TOTAL 0.5 mg/dl (0.2-1.3); BLOOD UREA NITROGEN 44 mg/dl (7-20); CALCIUM 8.4 mg/dl (8.4-10.2); CARBON DIOXIDE 32 mmol/L (21-31); CHLORIDE 103 mmol/L (97-110); CREATININE 1.02 mg/dl (0.44-1.00); GLUCOSE 137 mg/dl (70-220); POTASSIUM 3.7 mmol/L (3.5-5.1); SODIUM 142 mmol/L (135-144); TOTAL PROTEIN 5.8 g/dl (6.1-8.1)
[2017-07-24] MEDS: INSULIN ASPART [NOVOLOG] 3 ML PEN SC ×7 (09:00→20:44)
[2017-07-24] MEDS: COLLAGENASE 5 GM (UD JAR) TOP (09:07)
[2017-07-24] MEDS: NYSTATIN 30 GM POWDER BTL TOP ×2 (09:07→20:25)
[2017-07-24] MEDS: ARTIFICIAL TEARS 15 ML OPH BOTH EYES ×4 (09:08→20:24)
[2017-07-24] MEDS: SALMETEROL/FLUTICASONE 500/50 INHA INH ×2 (09:08→20:25)
[2017-07-24] MEDS: FLUTICASONE 0.05% 16 GM NAS SPRAY NASAL ×2 (09:08→20:25)
[2017-07-24] MEDS: LEVETIRACETAM (100 MG/ML PO SYG) GTB ×2 (09:08→20:25)
[2017-07-24] MEDS: OCULAR LUBRICANT 3.5 GM OPH OINT BOTH EYES ×4 (09:08→20:24)
[2017-07-24] MEDS: GABAPENTIN 300 MG CAP PO ×3 (09:08→20:25)
[2017-07-24] MEDS: METOPROLOL 100 MG TAB PO ×2 (09:09→20:28)
[2017-07-24] MEDS: predniSONE 5 MG TAB PO ×3 (09:55→20:26)
[2017-07-24] MEDS: FUROSEMIDE 40 MG INJ IV (09:55)
[2017-07-24 10:37] LABS: ADD UMIC YES; UR ASCORBIC ACID NEGATIVE (NEGATIVE); UR BACTERIA FEW /HPF (NONE SEEN); UR BILIRUBIN (Dip) NEGATIVE (NEGATIVE); UR BLOOD (Dip) 1+ mg/dL (NEGATIVE); UR CLARITY CLEAR (CLEAR); UR COLOR YELLOW (YELLOW); UR GLUCOSE (Dip) NEGATIVE (NEGATIVE); UR KETONES (Dip) NEGATIVE (NEGATIVE); UR LEUKOCYTE ESTERASE (Dip) NEGATIVE Leu/ul (NEGATIVE); UR NITRITE (Dip) NEGATIVE (NEGATIVE); UR RBC 26 /HPF (0-5); UR SPECIFIC GRAVITY (Dip) 1.017 (1.003-1.030); UR TOTAL PROTEIN (Dip) 2+ mg/dl (NEGATIVE); UR UROBILINOGEN (Dip) NEGATIVE (NEGATIVE); UR WBC 9 /HPF (0-5)
[2017-07-24] MEDS: MONTELUKAST 10 MG TAB PO (20:28)
[2017-07-24] MEDS: PRAMIPEXOLE 0.125 MG TAB PO (20:29)
[2017-07-24] MEDS: RANITIDINE 150 MG TAB PO (20:29)
[2017-07-24] MEDS: SENNA TAB PO (20:29)
[2017-07-24] MEDS: INSULIN GLARGINE [LANtus] 3 ML PEN SC (20:47)
[2017-07-24] MEDS: traMADol 50 MG TAB GTB (20:54)
[2017-07-25] MEDS: ALBUTEROL/IPRATROPIUM (NEB) 3 ML AMP HHN ×4 (01:16→19:29)
[2017-07-25] MEDS: ACCU-CHEK XX (02:00)
[2017-07-25] MEDS: PANTOPRAZOLE (EC) 40 MG TAB PO (06:05)
[2017-07-25 06:26] LABS: WHITE BLOOD COUNT 6.9 10^3/ul (4.8-10.8)
[2017-07-25 06:26] LABS: ADD MAN DIFF? NO; BASOPHILS % 0.1 % (0.0-2.0); EOSINOPHILS # 0.1 10^3/ul (0.0-0.5); EOSINOPHILS % 0.9 % (0.0-7.0); HEMATOCRIT 30.2 % (37.0-47.0); HEMOGLOBIN 9.9 g/dl (12.0-16.0); LYMPHOCYTES # 1.8 10^3/ul (0.8-2.9); LYMPHOCYTES % 25.3 % (15.0-51.0); MEAN CORPUSCULAR HEMOGLOBIN 30.2 pg (29.0-33.0); MEAN CORPUSCULAR HGB CONC 32.8 g/dl (32.0-37.0); MEAN CORPUSCULAR VOLUME 92.1 fl (82.0-101.0); MEAN PLATELET VOLUME 10.7 fl (7.4-10.4); NEUTROPHIL # 4.1 10^3/ul (1.6-7.5); NEUTROPHILS % 58.8 % (39.0-77.0); PLATELET COUNT 151 10^3/UL (140-415); RED BLOOD COUNT 3.28 10^6/ul (4.20-5.40); RED CELL DISTRIBUTION WIDTH 18.3 % (11.5-14.5)
[2017-07-25 06:51] LABS: LIPASE 303 U/L (23-300)
[2017-07-25 07:03] LABS: ALANINE AMINOTRANSFERASE 146 IU/L (13-69); ALBUMIN 2.1 g/dl (3.3-4.9); ALBUMIN/GLOBULIN RATIO 0.65; ALKALINE PHOSPHATASE 292 IU/L (42-121); ANION GAP 7 (8-16); ASPARTATE AMINO TRANSFERASE 115 IU/L (15-46); BILIRUBIN,INDIRECT 0.4 mg/dl (0-1.1); BILIRUBIN,TOTAL 0.4 mg/dl (0.2-1.3); BLOOD UREA NITROGEN 45 mg/dl (7-20); CALCIUM 8.7 mg/dl (8.4-10.2); CARBON DIOXIDE 34 mmol/L (21-31); CHLORIDE 104 mmol/L (97-110); CREATININE 1.05 mg/dl (0.44-1.00); GLUCOSE 198 mg/dl (70-220); POTASSIUM 4.2 mmol/L (3.5-5.1); SODIUM 141 mmol/L (135-144); TOTAL PROTEIN 5.3 g/dl (6.1-8.1)
[2017-07-25 07:34] LABS: HEPATITIS B SURFACE ANTIGEN NEGATIVE (NEGATIVE)
[2017-07-25 07:51] LABS: HEPATITIS B SURFACE ANTIBODY NEGATIVE (NEGATIVE)
[2017-07-25 07:52] LABS: HEPATITIS B CORE ANTIBODY REACTIVE (NEGATIVE); HEPATITIS C VIRAL ANTIBODY NEGATIVE (NEGATIVE)
[2017-07-25] MEDS: NYSTATIN 30 GM POWDER BTL TOP ×2 (08:13→21:06)
[2017-07-25] MEDS: COLLAGENASE 5 GM (UD JAR) TOP (08:13)
[2017-07-25] MEDS: SALMETEROL/FLUTICASONE 500/50 INHA INH ×2 (08:13→21:02)
[2017-07-25] MEDS: FLUTICASONE 0.05% 16 GM NAS SPRAY NASAL ×2 (08:13→21:02)
[2017-07-25] MEDS: LEVETIRACETAM (100 MG/ML PO SYG) GTB ×2 (08:13→21:05)
[2017-07-25] MEDS: OCULAR LUBRICANT 3.5 GM OPH OINT BOTH EYES ×2 (08:14→12:38)
[2017-07-25] MEDS: GABAPENTIN 300 MG CAP PO ×3 (08:14→21:03)
[2017-07-25] MEDS: ARTIFICIAL TEARS 15 ML OPH BOTH EYES ×4 (08:14→21:03)
[2017-07-25] MEDS: predniSONE 5 MG TAB PO ×2 (08:14→12:38)
[2017-07-25] MEDS: FUROSEMIDE 40 MG INJ IV (08:15)
[2017-07-25] MEDS: METOPROLOL 100 MG TAB PO ×2 (08:15→21:05)
[2017-07-25] MEDS: INSULIN ASPART [NOVOLOG] 3 ML PEN SC ×7 (08:28→21:40)
[2017-07-25] MEDS: HYDROCODONE/APAP (7.5/325) TAB PO ×3 (09:54→21:26)
[2017-07-25 10:13] LABS: ADD UMIC YES; UR ASCORBIC ACID 20 mg/dL (NEGATIVE); UR BACTERIA MODERATE /HPF (NONE SEEN); UR BILIRUBIN (Dip) NEGATIVE (NEGATIVE); UR BLOOD (Dip) 1+ mg/dL (NEGATIVE); UR CLARITY SLIGHTLY CLOUDY (CLEAR); UR COLOR YELLOW (YELLOW); UR GLUCOSE (Dip) 3+ mg/dL (NEGATIVE); UR KETONES (Dip) NEGATIVE (NEGATIVE); UR LEUKOCYTE ESTERASE (Dip) 1+ Leu/ul (NEGATIVE); UR NITRITE (Dip) NEGATIVE (NEGATIVE); UR RBC 0 /HPF (0-5); UR SPECIFIC GRAVITY (Dip) 1.014 (1.003-1.030); UR TOTAL PROTEIN (Dip) 2+ mg/dl (NEGATIVE); UR UROBILINOGEN (Dip) NEGATIVE (NEGATIVE); UR WBC 51 /HPF (0-5)
[2017-07-25] MEDS: LORAZEPAM 2 MG INJ IV (18:05)
[2017-07-25] MEDS: MONTELUKAST 10 MG TAB PO (21:04)
[2017-07-25] MEDS: RANITIDINE 150 MG TAB PO (21:04)
[2017-07-25] MEDS: PRAMIPEXOLE 0.125 MG TAB PO (21:04)
[2017-07-25] MEDS: SENNA TAB PO (21:05)
[2017-07-25] MEDS: INSULIN GLARGINE [LANtus] 3 ML PEN SC (21:35)
[2017-07-26] MEDS ORDERED: predniSONE 10 MG TAB PO (07:25)
[2017-07-28 12:47] LABS: PROCALCITONIN 0.42 ng/mL (<0.10)
== END 2017-07-25 22:31 | DRG 207 ==
LOC: PP2 06-30 23:06 → ICU 07-02 07:06 → TEL 07-15 18:10 → PP2 17:04
PROVIDERS: Internal Medicine
PROC: 0BH17EZ Insertion of Endotracheal Airway into Trachea, Via Natural or Artificial Opening (ICD-10-PCS; principal; 2017-07-02)
PROC: 5A1955Z Respiratory Ventilation, Greater than 96 Consecutive Hours (ICD-10-PCS; 2017-07-02)
PROC: 02HV33Z Insertion of Infusion Device into Superior Vena Cava, Percutaneous Approach (ICD-10-PCS; 2017-07-04)
PROC: 30253N1 (ICD-10-PCS; 2017-07-14)
DX: J45.31 Mild persistent asthma with (acute) exacerbation (principal); I50.33 Acute on chronic diastolic (congestive) heart failure; J96.02 Acute respiratory failure with hypercapnia; G92 Toxic encephalopathy; J69.0 Pneumonitis due to inhalation of food and vomit; I13.0 Hypertensive heart and chronic kidney disease with heart failure and stage 1 through stage 4 chronic kidney disease, or unspecified chronic kidney disease; Z68.42 Body mass index [BMI] 45.0-49.9, adult; D62 Acute posthemorrhagic anemia; N17.9 Acute kidney failure, unspecified; N39.0 Urinary tract infection, site not specified; L03.311 Cellulitis of abdominal wall; I25.10 Atherosclerotic heart disease of native coronary artery without angina pectoris; Z95.828 Presence of other vascular implants and grafts; E11.22 Type 2 diabetes mellitus with diabetic chronic kidney disease; E78.5 Hyperlipidemia, unspecified; E66.01 Morbid (severe) obesity due to excess calories; M19.90 Unspecified osteoarthritis, unspecified site; Z86.718 Personal history of other venous thrombosis and embolism; B35.4 Tinea corporis; G25.81 Restless legs syndrome; G72.89 Other specified myopathies; E11.649 Type 2 diabetes mellitus with hypoglycemia without coma; N18.3 Chronic kidney disease, stage 3 (moderate); D63.1 Anemia in chronic kidney disease; B96.20 Unspecified Escherichia coli [E. coli] as the cause of diseases classified elsewhere; Z16.12 Extended spectrum beta lactamase (ESBL) resistance; Z79.4 Long term (current) use of insulin; Z96.41 Presence of insulin pump (external) (internal)
CPT/HCPCS: 31500; 36430; 36569; 36600; 70450; 70490; 70551; 71045; 73721; 76700; 76937; 80048; 80053; 80202; 81001; 82550; 82803; 82962; 83036; 83605; 83690; 83735; 83880; 84100; 84145; 84484; 85025; 86704; 86706; 86803; 86850; 86900; 86901; 86920; 87040; 87070; 87081; 87086; 87340; 92526; 92610; 94002; 94003; 94640; 94660; 94664; 94770; 95819; 97110; 97116; 97162; 97164; 97530

== ENCOUNTER 2017-07-25 22:30 | Inpatient (IN) | payer MEDICARE, OTHER ==
[2017-07-25] MEDS: LIDOCAINE 1% (MPF) 5 ML VIAL SC (07:13)
[2017-07-25] MEDS ORDERED: COLLAGENASE 5 GM (UD JAR) TOP (23:21)
[2017-07-25] MEDS ORDERED: GLUCOSE GEL 15 GRAM TUBE BUCCAL (23:21)
[2017-07-25] MEDS ORDERED: LEVALBUTEROL (NEB) 1.25 MG/0.5 ML AMP HHN (23:21)
[2017-07-25] MEDS ORDERED: DEXTROSE 50% 50 ML SYRINGE IV ×2 (23:21)
[2017-07-25] MEDS ORDERED: GLUCOSE GEL 15 GRAM TUBE PO ×2 (23:21)
[2017-07-25] MEDS ORDERED: PT'S OWN INSULIN PUMP SC (23:21)
[2017-07-25] MEDS ORDERED: ONDANSETRON 4 MG INJ IV (23:21)
[2017-07-25] MEDS ORDERED: GLUCAGON 1 MG INJ IM (23:21)
[2017-07-25] MEDS ORDERED: LORAZEPAM 2 MG INJ IV (23:21)
[2017-07-25] MEDS ORDERED: ARTIFICIAL TEARS 15 ML OPH BOTH EYES (23:21)
[2017-07-25] MEDS ORDERED: ACETAMINOPHEN 325 MG TAB PO (23:21)
[2017-07-26 00:08] LABS: ADD UMIC YES; UR ASCORBIC ACID NEGATIVE (NEGATIVE); UR BACTERIA MODERATE /HPF (NONE SEEN); UR BILIRUBIN (Dip) NEGATIVE (NEGATIVE); UR BLOOD (Dip) 2+ mg/dL (NEGATIVE); UR BUDDING YEAST FEW /HPF (NONE SEEN); UR CLARITY CLOUDY (CLEAR); UR COLOR YELLOW (YELLOW); UR GLUCOSE (Dip) 3+ mg/dL (NEGATIVE); UR KETONES (Dip) NEGATIVE (NEGATIVE); UR LEUKOCYTE ESTERASE (Dip) 3+ Leu/ul (NEGATIVE); UR NITRITE (Dip) POSITIVE (NEGATIVE); UR NONSQUAMOUS EPITHELIAL CELL 2 /HPF (NONE SEEN); UR RBC 22 /HPF (0-5); UR SPECIFIC GRAVITY (Dip) 1.018 (1.003-1.030); UR TOTAL PROTEIN (Dip) 2+ mg/dl (NEGATIVE); UR UROBILINOGEN (Dip) NEGATIVE (NEGATIVE); UR WBC > 182 /HPF (0-5)
[2017-07-26] MEDS: ALBUTEROL/IPRATROPIUM (NEB) 3 ML AMP HHN ×4 (00:22→21:33)
[2017-07-26] MEDS: ACCU-CHEK XX (02:00)
[2017-07-26] MEDS ORDERED: BISACODYL 10 MG SUPP PR (03:00)
[2017-07-26] MEDS: PANTOPRAZOLE (EC) 40 MG TAB PO (06:47)
[2017-07-26 06:51] LABS: ADD MAN DIFF? NO
[2017-07-26 06:52] LABS: WHITE BLOOD COUNT 8.3 10^3/ul (4.8-10.8)
[2017-07-26 06:52] LABS: BASOPHILS % 0.2 % (0.0-2.0); EOSINOPHILS # 0.2 10^3/ul (0.0-0.5); EOSINOPHILS % 1.8 % (0.0-7.0); HEMATOCRIT 31.3 % (37.0-47.0); HEMOGLOBIN 10.3 g/dl (12.0-16.0); LYMPHOCYTES # 1.7 10^3/ul (0.8-2.9); MEAN CORPUSCULAR HEMOGLOBIN 30.1 pg (29.0-33.0); MEAN CORPUSCULAR HGB CONC 32.9 g/dl (32.0-37.0); MEAN CORPUSCULAR VOLUME 91.5 fl (82.0-101.0); MEAN PLATELET VOLUME 10.8 fl (7.4-10.4); MONOCYTE # 1.2 10^3/ul (0.3-0.9); MONOCYTES % 14.6 % (0.0-11.0); NEUTROPHIL # 5.2 10^3/ul (1.6-7.5); NEUTROPHILS % 62.8 % (39.0-77.0); PLATELET COUNT 149 10^3/UL (140-415); RED BLOOD COUNT 3.42 10^6/ul (4.20-5.40); RED CELL DISTRIBUTION WIDTH 18.2 % (11.5-14.5)
[2017-07-26 07:31] LABS: ALANINE AMINOTRANSFERASE 128 IU/L (13-69); ALBUMIN 2.5 g/dl (3.3-4.9); ALBUMIN/GLOBULIN RATIO 0.69; ALKALINE PHOSPHATASE 284 IU/L (42-121); ANION GAP 10 (8-16); ASPARTATE AMINO TRANSFERASE 94 IU/L (15-46); BILIRUBIN,INDIRECT 0.6 mg/dl (0-1.1); BILIRUBIN,TOTAL 0.6 mg/dl (0.2-1.3); BLOOD UREA NITROGEN 44 mg/dl (7-20); CALCIUM 8.8 mg/dl (8.4-10.2); CARBON DIOXIDE 34 mmol/L (21-31); CHLORIDE 99 mmol/L (97-110); CREATININE 1.02 mg/dl (0.44-1.00); GLUCOSE 215 mg/dl (70-220); SODIUM 139 mmol/L (135-144); TOTAL PROTEIN 6.1 g/dl (6.1-8.1)
[2017-07-26] MEDS: INSULIN ASPART [NOVOLOG] 3 ML PEN SC ×7 (08:02→20:49)
[2017-07-26] MEDS: METOPROLOL 100 MG TAB PO ×2 (09:00→20:50)
[2017-07-26] MEDS: LEVETIRACETAM (100 MG/ML PO SYG) GTB ×2 (09:36→20:46)
[2017-07-26] MEDS: FLUTICASONE 0.05% 16 GM NAS SPRAY NASAL ×2 (09:37→20:46)
[2017-07-26] MEDS: GABAPENTIN 300 MG CAP PO ×3 (09:37→20:47)
[2017-07-26] MEDS: FUROSEMIDE 40 MG INJ IV (09:37)
[2017-07-26] MEDS: NYSTATIN 30 GM POWDER BTL TOP ×2 (09:37→21:13)
[2017-07-26] MEDS: SALMETEROL/FLUTICASONE 500/50 INHA INH ×2 (09:38→20:46)
[2017-07-26] MEDS: DOCUSATE SODIUM 100 MG CAP PO ×2 (09:38→20:47)
[2017-07-26] MEDS: COLLAGENASE 5 GM (UD JAR) TOP (09:38)
[2017-07-26] MEDS: ZYVOX 600 MG TAB PO (09:38)
[2017-07-26] MEDS: HYDROCODONE/APAP (7.5/325) TAB PO ×2 (09:52→15:16)
[2017-07-26] MEDS: traMADol 50 MG TAB GTB (10:47)
[2017-07-26] MEDS: MEROPENEM 1 GM/50ML(PMX) 50 ML IVPB ×2 (11:55→21:12)
[2017-07-26] MEDS: predniSONE 5 MG TAB PO (12:00)
[2017-07-26] MEDS ORDERED: AL HYDROX/MG HYDROX/SIMETH 30 ML CUP PO (16:00)
[2017-07-26] MEDS: AL HYDROX/MG HYDROX/SIMETH 30 ML CUP PO (16:00)
[2017-07-26] MEDS: morphine LIQ (10 MG/5 ML) CUP PO (16:47)
[2017-07-26] MEDS: PRAMIPEXOLE 0.125 MG TAB PO (20:46)
[2017-07-26] MEDS: SENNA TAB PO (20:46)
[2017-07-26] MEDS: MONTELUKAST 10 MG TAB PO (20:47)
[2017-07-26] MEDS: RANITIDINE 150 MG TAB PO (20:47)
[2017-07-26] MEDS: INSULIN GLARGINE [LANtus] 3 ML PEN SC (20:52)
[2017-07-27] MEDS: ACCU-CHEK XX (02:00)
[2017-07-27] MEDS: ALBUTEROL/IPRATROPIUM (NEB) 3 ML AMP HHN ×4 (02:48→19:37)
[2017-07-27] MEDS: PANTOPRAZOLE (EC) 40 MG TAB PO (06:29)
[2017-07-27] MEDS: INSULIN ASPART [NOVOLOG] 3 ML PEN SC ×7 (07:50→20:54)
[2017-07-27] MEDS: predniSONE 10 MG TAB PO (07:52)
[2017-07-27] MEDS: FLUTICASONE 0.05% 16 GM NAS SPRAY NASAL ×2 (08:59→20:38)
[2017-07-27] MEDS: GABAPENTIN 300 MG CAP PO ×3 (08:59→20:38)
[2017-07-27] MEDS: COLLAGENASE 5 GM (UD JAR) TOP (09:00)
[2017-07-27] MEDS: DOCUSATE SODIUM 100 MG CAP PO ×2 (09:00→20:37)
[2017-07-27] MEDS: MEROPENEM 1 GM/50ML(PMX) 50 ML IVPB ×3 (09:00→20:38)
[2017-07-27] MEDS: SALMETEROL/FLUTICASONE 500/50 INHA INH ×2 (09:00→20:36)
[2017-07-27] MEDS: METOPROLOL 100 MG TAB PO ×2 (09:00→20:37)
[2017-07-27] MEDS: FUROSEMIDE 40 MG INJ IV (09:01)
[2017-07-27] MEDS: LEVETIRACETAM (100 MG/ML PO SYG) GTB ×2 (09:01→20:36)
[2017-07-27 09:22] LABS: ADD MAN DIFF? NO
[2017-07-27 09:31] LABS: BASOPHILS % 0.3 % (0.0-2.0); EOSINOPHILS # 0.2 10^3/ul (0.0-0.5); HEMATOCRIT 32.7 % (37.0-47.0); HEMOGLOBIN 10.4 g/dl (12.0-16.0); LYMPHOCYTES # 1.9 10^3/ul (0.8-2.9); LYMPHOCYTES % 21.1 % (15.0-51.0); MEAN CORPUSCULAR HGB CONC 31.8 g/dl (32.0-37.0); MEAN CORPUSCULAR VOLUME 94.2 fl (82.0-101.0); MONOCYTE # 1.4 10^3/ul (0.3-0.9); MONOCYTES % 15.2 % (0.0-11.0); NEUTROPHIL # 5.4 10^3/ul (1.6-7.5); NEUTROPHILS % 60.3 % (39.0-77.0); PLATELET COUNT 153 10^3/UL (140-415); RED BLOOD COUNT 3.47 10^6/ul (4.20-5.40); RED CELL DISTRIBUTION WIDTH 18.3 % (11.5-14.5)
[2017-07-27 09:31] LABS: WHITE BLOOD COUNT 8.9 10^3/ul (4.8-10.8)
[2017-07-27 09:52] LABS: ALANINE AMINOTRANSFERASE 129 IU/L (13-69); ALBUMIN 2.7 g/dl (3.3-4.9); ALBUMIN/GLOBULIN RATIO 0.71; ALKALINE PHOSPHATASE 291 IU/L (42-121); ANION GAP 13 (8-16); ASPARTATE AMINO TRANSFERASE 101 IU/L (15-46); BILIRUBIN,INDIRECT 0.7 mg/dl (0-1.1); BILIRUBIN,TOTAL 0.7 mg/dl (0.2-1.3); BLOOD UREA NITROGEN 52 mg/dl (7-20); CALCIUM 8.9 mg/dl (8.4-10.2); CARBON DIOXIDE 31 mmol/L (21-31); CHLORIDE 98 mmol/L (97-110); CREATININE 1.46 mg/dl (0.44-1.00); GLUCOSE 187 mg/dl (70-220); POTASSIUM 4.5 mmol/L (3.5-5.1); SODIUM 137 mmol/L (135-144); TOTAL PROTEIN 6.5 g/dl (6.1-8.1)
[2017-07-27] MEDS: NYSTATIN 30 GM POWDER BTL TOP ×2 (10:01→20:38)
[2017-07-27] MEDS: predniSONE 5 MG TAB PO (12:03)
[2017-07-27] MEDS: MONTELUKAST 10 MG TAB PO (20:36)
[2017-07-27] MEDS: SENNA TAB PO (20:37)
[2017-07-27] MEDS: RANITIDINE 150 MG TAB PO (20:37)
[2017-07-27] MEDS: PRAMIPEXOLE 0.125 MG TAB PO (20:37)
[2017-07-27] MEDS: INSULIN GLARGINE [LANtus] 3 ML PEN SC (20:55)
[2017-07-28] MEDS: ALBUTEROL/IPRATROPIUM (NEB) 3 ML AMP HHN ×4 (01:35→19:46)
[2017-07-28] MEDS: ACCU-CHEK XX (02:00)
[2017-07-28] MEDS: PANTOPRAZOLE (EC) 40 MG TAB PO (05:56)
[2017-07-28 07:22] LABS: ADD MAN DIFF? NO
[2017-07-28 07:41] LABS: BASOPHILS % 0.3 % (0.0-2.0); EOSINOPHILS # 0.2 10^3/ul (0.0-0.5); EOSINOPHILS % 1.7 % (0.0-7.0); HEMATOCRIT 30.3 % (37.0-47.0); HEMOGLOBIN 9.9 g/dl (12.0-16.0); LYMPHOCYTES # 1.6 10^3/ul (0.8-2.9); LYMPHOCYTES % 15.8 % (15.0-51.0); MEAN CORPUSCULAR HGB CONC 32.7 g/dl (32.0-37.0); MEAN CORPUSCULAR VOLUME 91.8 fl (82.0-101.0); MEAN PLATELET VOLUME 10.8 fl (7.4-10.4); MONOCYTE # 1.4 10^3/ul (0.3-0.9); MONOCYTES % 13.6 % (0.0-11.0); NEUTROPHIL # 6.7 10^3/ul (1.6-7.5); NEUTROPHILS % 67.8 % (39.0-77.0); NUCLEATED RED BLOOD CELLS% 0.2 /100WBC (0.0-0.0); PLATELET COUNT 132 10^3/UL (140-415); RED CELL DISTRIBUTION WIDTH 17.8 % (11.5-14.5)
[2017-07-28 07:41] LABS: WHITE BLOOD COUNT 9.9 10^3/ul (4.8-10.8)
[2017-07-28] MEDS: predniSONE 10 MG TAB PO (07:52)
[2017-07-28] MEDS: INSULIN ASPART [NOVOLOG] 3 ML PEN SC ×7 (07:54→21:00)
[2017-07-28 08:24] LABS: ANION GAP 10 (8-16); BLOOD UREA NITROGEN 49 mg/dl (7-20); CARBON DIOXIDE 34 mmol/L (21-31); CHLORIDE 99 mmol/L (97-110); CREATININE 1.23 mg/dl (0.44-1.00); GLUCOSE 199 mg/dl (70-220); POTASSIUM 4.6 mmol/L (3.5-5.1); SODIUM 138 mmol/L (135-144)
[2017-07-28] MEDS: SALMETEROL/FLUTICASONE 500/50 INHA INH ×2 (08:25→21:04)
[2017-07-28] MEDS: DOCUSATE SODIUM 100 MG CAP PO ×2 (08:26→21:00)
[2017-07-28] MEDS: FUROSEMIDE 40 MG INJ IV (08:26)
[2017-07-28] MEDS: FLUTICASONE 0.05% 16 GM NAS SPRAY NASAL ×2 (08:26→21:05)
[2017-07-28] MEDS: COLLAGENASE 5 GM (UD JAR) TOP (08:27)
[2017-07-28] MEDS: GABAPENTIN 300 MG CAP PO ×3 (08:27→21:04)
[2017-07-28] MEDS: METOPROLOL 100 MG TAB PO ×2 (08:27→21:02)
[2017-07-28] MEDS: NYSTATIN 30 GM POWDER BTL TOP ×2 (08:28→21:07)
[2017-07-28] MEDS: MEROPENEM 1 GM/50ML(PMX) 50 ML IVPB ×2 (08:30→21:06)
[2017-07-28] MEDS: LEVETIRACETAM (100 MG/ML PO SYG) GTB ×2 (09:45→21:05)
[2017-07-28] MEDS: predniSONE 5 MG TAB PO (12:42)
[2017-07-28] MEDS: HYDROCODONE/APAP (7.5/325) TAB PO ×3 (12:51→23:24)
[2017-07-28] MEDS: INSULIN GLARGINE [LANtus] 3 ML PEN SC (20:58)
[2017-07-28] MEDS: SENNA TAB PO (21:02)
[2017-07-28] MEDS: PRAMIPEXOLE 0.125 MG TAB PO (21:02)
[2017-07-28] MEDS: MONTELUKAST 10 MG TAB PO (21:03)
[2017-07-28] MEDS: RANITIDINE 150 MG TAB PO (21:03)
[2017-07-29] MEDS: ALBUTEROL/IPRATROPIUM (NEB) 3 ML AMP HHN ×4 (01:58→21:12)
[2017-07-29] MEDS: ACCU-CHEK XX (02:00)
[2017-07-29] MEDS: PANTOPRAZOLE (EC) 40 MG TAB PO (05:34)
[2017-07-29] MEDS: ALTEPLASE (CATHFLO) 2 MG INJ CATHETER ×2 (05:35→05:36)
[2017-07-29] MEDS: HYDROCODONE/APAP (7.5/325) TAB PO ×3 (07:11→22:22)
[2017-07-29] MEDS: INSULIN ASPART [NOVOLOG] 3 ML PEN SC ×7 (07:26→22:18)
[2017-07-29] MEDS: predniSONE 10 MG TAB PO (07:40)
[2017-07-29] MEDS: DOCUSATE SODIUM 100 MG CAP PO ×2 (08:55→22:20)
[2017-07-29] MEDS: GABAPENTIN 300 MG CAP PO ×3 (08:55→22:21)
[2017-07-29] MEDS: LEVETIRACETAM (100 MG/ML PO SYG) GTB ×2 (08:56→22:20)
[2017-07-29] MEDS: SALMETEROL/FLUTICASONE 500/50 INHA INH ×2 (08:56→22:20)
[2017-07-29] MEDS: FUROSEMIDE 40 MG INJ IV (08:56)
[2017-07-29] MEDS: MEROPENEM 1 GM/50ML(PMX) 50 ML IVPB ×2 (08:56→22:16)
[2017-07-29] MEDS: COLLAGENASE 5 GM (UD JAR) TOP (08:57)
[2017-07-29] MEDS: METOPROLOL 100 MG TAB PO ×2 (08:58→22:22)
[2017-07-29] MEDS: FLUTICASONE 0.05% 16 GM NAS SPRAY NASAL ×2 (09:00→22:23)
[2017-07-29] MEDS: NYSTATIN 30 GM POWDER BTL TOP ×2 (09:00→22:00)
[2017-07-29] MEDS: predniSONE 5 MG TAB PO (11:55)
[2017-07-29] MEDS: INSULIN GLARGINE [LANtus] 3 ML PEN SC (22:17)
[2017-07-29] MEDS: PRAMIPEXOLE 0.125 MG TAB PO (22:20)
[2017-07-29] MEDS: SENNA TAB PO (22:21)
[2017-07-29] MEDS: MONTELUKAST 10 MG TAB PO (22:21)
[2017-07-29] MEDS: RANITIDINE 150 MG TAB PO (22:21)
[2017-07-30] MEDS: ACCU-CHEK XX (02:09)
[2017-07-30] MEDS: ALBUTEROL/IPRATROPIUM (NEB) 3 ML AMP HHN ×3 (02:30→20:29)
[2017-07-30] MEDS: PANTOPRAZOLE (EC) 40 MG TAB PO (06:52)
[2017-07-30] MEDS: predniSONE 10 MG TAB PO (07:37)
[2017-07-30] MEDS: INSULIN ASPART [NOVOLOG] 3 ML PEN SC ×7 (07:40→20:38)
[2017-07-30] MEDS: MEROPENEM 1 GM/50ML(PMX) 50 ML IVPB ×2 (08:44→20:36)
[2017-07-30] MEDS: DOCUSATE SODIUM 100 MG CAP PO ×2 (08:45→20:58)
[2017-07-30] MEDS: GABAPENTIN 300 MG CAP PO ×3 (08:45→20:43)
[2017-07-30] MEDS: LEVETIRACETAM (100 MG/ML PO SYG) GTB ×2 (08:45→20:39)
[2017-07-30] MEDS: METOPROLOL 100 MG TAB PO ×2 (08:45→20:42)
[2017-07-30] MEDS: FUROSEMIDE 40 MG INJ IV (08:45)
[2017-07-30] MEDS: SALMETEROL/FLUTICASONE 500/50 INHA INH ×2 (08:46→20:36)
[2017-07-30] MEDS: NYSTATIN 30 GM POWDER BTL TOP ×2 (08:46→20:44)
[2017-07-30] MEDS: COLLAGENASE 5 GM (UD JAR) TOP (08:46)
[2017-07-30] MEDS: FLUTICASONE 0.05% 16 GM NAS SPRAY NASAL ×2 (08:47→20:44)
[2017-07-30] MEDS: HYDROCODONE/APAP (7.5/325) TAB PO ×2 (09:46→22:01)
[2017-07-30] MEDS: predniSONE 5 MG TAB PO (12:08)
[2017-07-30] MEDS: INSULIN GLARGINE [LANtus] 3 ML PEN SC (20:39)
[2017-07-30] MEDS: RANITIDINE 150 MG TAB PO (20:40)
[2017-07-30] MEDS: MONTELUKAST 10 MG TAB PO (20:43)
[2017-07-30] MEDS: PRAMIPEXOLE 0.125 MG TAB PO (20:43)
[2017-07-30] MEDS: SENNA TAB PO (20:58)
[2017-07-31] MEDS: ALBUTEROL/IPRATROPIUM (NEB) 3 ML AMP HHN ×4 (01:24→20:00)
[2017-07-31] MEDS: ACCU-CHEK XX (02:43)
[2017-07-31] MEDS: PANTOPRAZOLE (EC) 40 MG TAB PO (06:13)
[2017-07-31 06:57] LABS: ADD MAN DIFF? NO
[2017-07-31] MEDS ORDERED: predniSONE 1 MG TAB PO (07:05)
[2017-07-31 07:06] LABS: BASOPHILS % 0.5 % (0.0-2.0); EOSINOPHILS # 0.2 10^3/ul (0.0-0.5); HEMATOCRIT 28.6 % (37.0-47.0); HEMOGLOBIN 9.4 g/dl (12.0-16.0); LYMPHOCYTES # 1.9 10^3/ul (0.8-2.9); LYMPHOCYTES % 23.7 % (15.0-51.0); MEAN CORPUSCULAR HEMOGLOBIN 30.3 pg (29.0-33.0); MEAN CORPUSCULAR HGB CONC 32.9 g/dl (32.0-37.0); MEAN CORPUSCULAR VOLUME 92.3 fl (82.0-101.0); MEAN PLATELET VOLUME 10.4 fl (7.4-10.4); MONOCYTE # 1.2 10^3/ul (0.3-0.9); MONOCYTES % 15.3 % (0.0-11.0); NEUTROPHIL # 4.6 10^3/ul (1.6-7.5); NEUTROPHILS % 57.9 % (39.0-77.0); PLATELET COUNT 113 10^3/UL (140-415); RED CELL DISTRIBUTION WIDTH 18.2 % (11.5-14.5)
[2017-07-31] MEDS: predniSONE 10 MG TAB PO (07:24)
[2017-07-31] MEDS: INSULIN ASPART [NOVOLOG] 3 ML PEN SC ×6 (07:35→21:32)
[2017-07-31 07:40] LABS: ALANINE AMINOTRANSFERASE 90 IU/L (13-69); ALBUMIN 2.4 g/dl (3.3-4.9); ALKALINE PHOSPHATASE 236 IU/L (42-121); ANION GAP 11 (8-16); ASPARTATE AMINO TRANSFERASE 78 IU/L (15-46); BILIRUBIN,INDIRECT 0.4 mg/dl (0-1.1); BILIRUBIN,TOTAL 0.4 mg/dl (0.2-1.3); BLOOD UREA NITROGEN 37 mg/dl (7-20); CALCIUM 9.1 mg/dl (8.4-10.2); CARBON DIOXIDE 36 mmol/L (21-31); CHLORIDE 96 mmol/L (97-110); CREATININE 0.88 mg/dl (0.44-1.00); GLUCOSE 127 mg/dl (70-220); POTASSIUM 3.9 mmol/L (3.5-5.1); SODIUM 139 mmol/L (135-144); TOTAL PROTEIN 5.8 g/dl (6.1-8.1)
[2017-07-31] MEDS: FUROSEMIDE 40 MG INJ IV (09:17)
[2017-07-31] MEDS: MEROPENEM 1 GM/50ML(PMX) 50 ML IVPB (09:24)
[2017-07-31] MEDS: LEVETIRACETAM (100 MG/ML PO SYG) GTB ×2 (09:43→21:19)
[2017-07-31] MEDS: GABAPENTIN 300 MG CAP PO ×2 (09:43→12:38)
[2017-07-31] MEDS: DOCUSATE SODIUM 100 MG CAP PO ×2 (09:43→10:06)
[2017-07-31] MEDS: METOPROLOL 100 MG TAB PO ×2 (09:44→21:18)
[2017-07-31] MEDS: NYSTATIN 30 GM POWDER BTL TOP ×2 (09:45→21:20)
[2017-07-31] MEDS: SALMETEROL/FLUTICASONE 500/50 INHA INH ×2 (09:45→21:19)
[2017-07-31] MEDS: FLUTICASONE 0.05% 16 GM NAS SPRAY NASAL ×2 (09:45→21:19)
[2017-07-31] MEDS: COLLAGENASE 5 GM (UD JAR) TOP (09:46)
[2017-07-31] MEDS: HYDROCODONE/APAP (7.5/325) TAB PO ×2 (11:22→23:10)
[2017-07-31] MEDS: predniSONE 5 MG TAB PO (12:48)
[2017-07-31] MEDS: SENNA TAB PO (21:00)
[2017-07-31] MEDS: RANITIDINE 150 MG TAB PO (21:17)
[2017-07-31] MEDS: MONTELUKAST 10 MG TAB PO (21:17)
[2017-07-31] MEDS: GABAPENTIN 400 MG CAP PO (21:17)
[2017-07-31] MEDS: PRAMIPEXOLE 0.125 MG TAB PO (21:17)
[2017-07-31] MEDS: INSULIN GLARGINE [LANtus] 3 ML PEN SC (21:33)
[2017-08-01] MEDS: ALBUTEROL/IPRATROPIUM (NEB) 3 ML AMP HHN ×4 (01:35→21:07)
[2017-08-01] MEDS: ACCU-CHEK XX (03:00)
[2017-08-01 06:23] LABS: ADD MAN DIFF? NO
[2017-08-01] MEDS: predniSONE 5 MG TAB PO (06:27)
[2017-08-01] MEDS: PANTOPRAZOLE (EC) 40 MG TAB PO (06:27)
[2017-08-01] MEDS: predniSONE 1 MG TAB PO ×2 (06:28→12:54)
[2017-08-01 06:29] LABS: BASOPHILS % 0.5 % (0.0-2.0); EOSINOPHILS # 0.1 10^3/ul (0.0-0.5); EOSINOPHILS % 1.4 % (0.0-7.0); HEMATOCRIT 28.6 % (37.0-47.0); HEMOGLOBIN 9.3 g/dl (12.0-16.0); LYMPHOCYTES % 24.9 % (15.0-51.0); MEAN CORPUSCULAR HEMOGLOBIN 29.9 pg (29.0-33.0); MEAN CORPUSCULAR HGB CONC 32.5 g/dl (32.0-37.0); MONOCYTE # 1.2 10^3/ul (0.3-0.9); MONOCYTES % 15.6 % (0.0-11.0); NEUTROPHIL # 4.4 10^3/ul (1.6-7.5); NEUTROPHILS % 56.5 % (39.0-77.0); PLATELET COUNT 113 10^3/UL (140-415); RED BLOOD COUNT 3.11 10^6/ul (4.20-5.40); RED CELL DISTRIBUTION WIDTH 18.1 % (11.5-14.5)
[2017-08-01 06:29] LABS: WHITE BLOOD COUNT 7.9 10^3/ul (4.8-10.8)
[2017-08-01 06:56] LABS: ALANINE AMINOTRANSFERASE 117 IU/L (13-69); ALBUMIN 2.3 g/dl (3.3-4.9); ALBUMIN/GLOBULIN RATIO 0.69; ALKALINE PHOSPHATASE 253 IU/L (42-121); ASPARTATE AMINO TRANSFERASE 115 IU/L (15-46); BILIRUBIN,INDIRECT 0.5 mg/dl (0-1.1); BILIRUBIN,TOTAL 0.5 mg/dl (0.2-1.3); BLOOD UREA NITROGEN 40 mg/dl (7-20); CHLORIDE 96 mmol/L (97-110); CREATININE 0.84 mg/dl (0.44-1.00); GLUCOSE 199 mg/dl (70-220); POTASSIUM 4.2 mmol/L (3.5-5.1); SODIUM 141 mmol/L (135-144); TOTAL PROTEIN 5.6 g/dl (6.1-8.1)
[2017-08-01 07:02] LABS: ANION GAP 9 (8-16)
[2017-08-01 07:05] LABS: CARBON DIOXIDE 40 mmol/L (21-31)
[2017-08-01] MEDS: INSULIN ASPART [NOVOLOG] 3 ML PEN SC ×8 (07:35→20:46)
[2017-08-01] MEDS: DOCUSATE SODIUM 100 MG CAP PO ×2 (09:00→20:31)
[2017-08-01] MEDS: NYSTATIN 30 GM POWDER BTL TOP ×2 (09:00→20:32)
[2017-08-01] MEDS: FUROSEMIDE 40 MG TAB PO (09:14)
[2017-08-01] MEDS: GABAPENTIN 400 MG CAP PO ×3 (09:14→20:31)
[2017-08-01] MEDS: METOPROLOL 100 MG TAB PO ×2 (09:15→20:31)
[2017-08-01] MEDS: SALMETEROL/FLUTICASONE 500/50 INHA INH ×2 (09:18→20:33)
[2017-08-01] MEDS: FLUTICASONE 0.05% 16 GM NAS SPRAY NASAL ×2 (09:18→20:32)
[2017-08-01] MEDS: COLLAGENASE 5 GM (UD JAR) TOP (09:19)
[2017-08-01] MEDS: HYDROCODONE/APAP (7.5/325) TAB PO ×2 (11:26→23:06)
[2017-08-01] MEDS: RANITIDINE 150 MG TAB PO (20:31)
[2017-08-01] MEDS: PRAMIPEXOLE 0.125 MG TAB PO (20:31)
[2017-08-01] MEDS: MONTELUKAST 10 MG TAB PO (20:31)
[2017-08-01] MEDS: SENNA TAB PO (20:31)
[2017-08-01] MEDS: INSULIN GLARGINE [LANtus] 3 ML PEN SC (20:47)
[2017-08-02] MEDS: morphine LIQ (10 MG/5 ML) CUP PO (01:47)
[2017-08-02] MEDS: ACCU-CHEK XX (02:05)
[2017-08-02] MEDS: ALBUTEROL/IPRATROPIUM (NEB) 3 ML AMP HHN ×4 (03:30→20:41)
[2017-08-02] MEDS: PANTOPRAZOLE (EC) 40 MG TAB PO (05:54)
[2017-08-02 06:38] LABS: ADD MAN DIFF? NO
[2017-08-02 06:55] LABS: WHITE BLOOD COUNT 8.4 10^3/ul (4.8-10.8)
[2017-08-02 06:55] LABS: BASOPHIL # 0.1 10^3/ul (0.0-0.1); BASOPHILS % 0.6 % (0.0-2.0); EOSINOPHILS # 0.1 10^3/ul (0.0-0.5); EOSINOPHILS % 1.4 % (0.0-7.0); HEMATOCRIT 28.3 % (37.0-47.0); HEMOGLOBIN 9.3 g/dl (12.0-16.0); LYMPHOCYTES # 2.3 10^3/ul (0.8-2.9); LYMPHOCYTES % 26.9 % (15.0-51.0); MEAN CORPUSCULAR HEMOGLOBIN 30.1 pg (29.0-33.0); MEAN CORPUSCULAR HGB CONC 32.9 g/dl (32.0-37.0); MEAN CORPUSCULAR VOLUME 91.6 fl (82.0-101.0); MEAN PLATELET VOLUME 10.5 fl (7.4-10.4); MONOCYTE # 1.3 10^3/ul (0.3-0.9); MONOCYTES % 15.7 % (0.0-11.0); NEUTROPHIL # 4.6 10^3/ul (1.6-7.5); NEUTROPHILS % 54.3 % (39.0-77.0); NUCLEATED RED BLOOD CELLS% 0.2 /100WBC (0.0-0.0); PLATELET COUNT 127 10^3/UL (140-415); RED BLOOD COUNT 3.09 10^6/ul (4.20-5.40); RED CELL DISTRIBUTION WIDTH 18.1 % (11.5-14.5)
[2017-08-02 07:14] LABS: ALANINE AMINOTRANSFERASE 105 IU/L (13-69); ALBUMIN 2.6 g/dl (3.3-4.9); ALBUMIN/GLOBULIN RATIO 0.76; ALKALINE PHOSPHATASE 252 IU/L (42-121); ASPARTATE AMINO TRANSFERASE 99 IU/L (15-46); BILIRUBIN,INDIRECT 0.6 mg/dl (0-1.1); BILIRUBIN,TOTAL 0.6 mg/dl (0.2-1.3); BLOOD UREA NITROGEN 37 mg/dl (7-20); CALCIUM 8.9 mg/dl (8.4-10.2); CHLORIDE 93 mmol/L (97-110); CREATININE 1.07 mg/dl (0.44-1.00); GLUCOSE 126 mg/dl (70-220); MAGNESIUM 1.4 mg/dl (1.7-2.5); POTASSIUM 3.8 mmol/L (3.5-5.1); SODIUM 139 mmol/L (135-144)
[2017-08-02 07:20] LABS: ANION GAP 11 (8-16)
[2017-08-02 07:22] LABS: CARBON DIOXIDE 39 mmol/L (21-31)
[2017-08-02] MEDS: INSULIN ASPART [NOVOLOG] 3 ML PEN SC ×7 (07:35→22:17)
[2017-08-02] MEDS: predniSONE 1 MG TAB PO ×2 (08:35→13:21)
[2017-08-02] MEDS: predniSONE 5 MG TAB PO (08:36)
[2017-08-02] MEDS: DOCUSATE SODIUM 100 MG CAP PO ×2 (09:00→21:00)
[2017-08-02] MEDS: MAGNESIUM SULFATE 1 GM/D5W 100 ML IVPB ×3 (10:16→13:24)
[2017-08-02] MEDS: SALMETEROL/FLUTICASONE 500/50 INHA INH ×2 (10:37→21:10)
[2017-08-02] MEDS: GABAPENTIN 300 MG CAP PO ×3 (10:43→21:06)
[2017-08-02] MEDS: METOPROLOL 100 MG TAB PO ×2 (10:44→21:06)
[2017-08-02] MEDS: FUROSEMIDE 40 MG TAB PO (10:44)
[2017-08-02] MEDS: FLUTICASONE 0.05% 16 GM NAS SPRAY NASAL ×2 (10:45→21:10)
[2017-08-02] MEDS: NYSTATIN 30 GM POWDER BTL TOP ×2 (10:45→21:11)
[2017-08-02] MEDS: COLLAGENASE 5 GM (UD JAR) TOP (13:08)
[2017-08-02] MEDS: SENNA TAB PO (21:00)
[2017-08-02] MEDS: PRAMIPEXOLE 0.125 MG TAB PO (21:05)
[2017-08-02] MEDS: MONTELUKAST 10 MG TAB PO (21:05)
[2017-08-02] MEDS: RANITIDINE 150 MG TAB PO (21:06)
[2017-08-02] MEDS: INSULIN GLARGINE [LANtus] 3 ML PEN SC (22:16)
[2017-08-03] MEDS: ALBUTEROL/IPRATROPIUM (NEB) 3 ML AMP HHN ×4 (01:43→19:56)
[2017-08-03] MEDS: ACCU-CHEK XX (02:27)
[2017-08-03] MEDS: PANTOPRAZOLE (EC) 40 MG TAB PO (06:27)
[2017-08-03] MEDS: predniSONE 5 MG TAB PO (06:28)
[2017-08-03] MEDS: predniSONE 1 MG TAB PO ×2 (06:28→13:11)
[2017-08-03 07:27] LABS: ADD MAN DIFF? NO
[2017-08-03 07:31] LABS: BASOPHIL # 0.1 10^3/ul (0.0-0.1); BASOPHILS % 0.6 % (0.0-2.0); EOSINOPHILS # 0.1 10^3/ul (0.0-0.5); EOSINOPHILS % 1.2 % (0.0-7.0); HEMATOCRIT 30.9 % (37.0-47.0); HEMOGLOBIN 9.9 g/dl (12.0-16.0); LYMPHOCYTES # 2.4 10^3/ul (0.8-2.9); LYMPHOCYTES % 25.1 % (15.0-51.0); MEAN CORPUSCULAR HEMOGLOBIN 29.6 pg (29.0-33.0); MEAN CORPUSCULAR VOLUME 92.2 fl (82.0-101.0); MEAN PLATELET VOLUME 10.3 fl (7.4-10.4); MONOCYTE # 1.4 10^3/ul (0.3-0.9); MONOCYTES % 15.3 % (0.0-11.0); NEUTROPHIL # 5.3 10^3/ul (1.6-7.5); NEUTROPHILS % 56.7 % (39.0-77.0); PLATELET COUNT 127 10^3/UL (140-415); RED BLOOD COUNT 3.35 10^6/ul (4.20-5.40)
[2017-08-03 07:31] LABS: WHITE BLOOD COUNT 9.4 10^3/ul (4.8-10.8)
[2017-08-03 08:00] LABS: MAGNESIUM 2.1 mg/dl (1.7-2.5)
[2017-08-03 08:01] LABS: ALANINE AMINOTRANSFERASE 108 IU/L (13-69); ALBUMIN 2.6 g/dl (3.3-4.9); ALBUMIN/GLOBULIN RATIO 0.76; ALKALINE PHOSPHATASE 260 IU/L (42-121); ANION GAP 9 (8-16); ASPARTATE AMINO TRANSFERASE 100 IU/L (15-46); BILIRUBIN,INDIRECT 0.5 mg/dl (0-1.1); BILIRUBIN,TOTAL 0.5 mg/dl (0.2-1.3); BLOOD UREA NITROGEN 42 mg/dl (7-20); CALCIUM 9.1 mg/dl (8.4-10.2); CARBON DIOXIDE 39 mmol/L (21-31); CHLORIDE 95 mmol/L (97-110); CREATININE 0.92 mg/dl (0.44-1.00); GLUCOSE 179 mg/dl (70-220); POTASSIUM 4.1 mmol/L (3.5-5.1); SODIUM 139 mmol/L (135-144)
[2017-08-03] MEDS: INSULIN ASPART [NOVOLOG] 3 ML PEN SC ×7 (08:38→21:13)
[2017-08-03] MEDS: FUROSEMIDE 40 MG TAB PO (08:40)
[2017-08-03] MEDS: GABAPENTIN 300 MG CAP PO ×3 (08:41→21:02)
[2017-08-03] MEDS: DOCUSATE SODIUM 100 MG CAP PO ×2 (08:41→21:02)
[2017-08-03] MEDS: NYSTATIN 30 GM POWDER BTL TOP ×2 (08:41→21:07)
[2017-08-03] MEDS: METOPROLOL 100 MG TAB PO ×2 (08:41→21:04)
[2017-08-03] MEDS: FLUTICASONE 0.05% 16 GM NAS SPRAY NASAL ×2 (08:41→21:07)
[2017-08-03] MEDS: COLLAGENASE 5 GM (UD JAR) TOP (08:41)
[2017-08-03] MEDS: SALMETEROL/FLUTICASONE 500/50 INHA INH ×2 (08:42→21:08)
[2017-08-03] MEDS: LACTULOSE 30ML CUP PO (13:12)
[2017-08-03] MEDS: PRAMIPEXOLE 0.125 MG TAB PO (21:02)
[2017-08-03] MEDS: SENNA TAB PO (21:03)
[2017-08-03] MEDS: RANITIDINE 150 MG TAB PO (21:03)
[2017-08-03] MEDS: MONTELUKAST 10 MG TAB PO (21:03)
[2017-08-03] MEDS: INSULIN GLARGINE [LANtus] 3 ML PEN SC (21:14)
[2017-08-04] MEDS: ALBUTEROL/IPRATROPIUM (NEB) 3 ML AMP HHN ×4 (02:18→20:35)
[2017-08-04] MEDS: ACCU-CHEK XX (02:23)
[2017-08-04] MEDS: PANTOPRAZOLE (EC) 40 MG TAB PO (06:33)
[2017-08-04] MEDS: predniSONE 1 MG TAB PO ×2 (06:34→12:52)
[2017-08-04] MEDS: predniSONE 5 MG TAB PO (06:34)
[2017-08-04] MEDS ORDERED: INSULIN ASPART [NOVOLOG] 3 ML PEN SC (07:35)
[2017-08-04] MEDS: INSULIN ASPART [NOVOLOG] 3 ML PEN SC ×7 (07:39→21:54)
[2017-08-04] MEDS: GABAPENTIN 300 MG CAP PO ×3 (08:35→21:45)
[2017-08-04] MEDS: FUROSEMIDE 40 MG TAB PO (08:35)
[2017-08-04] MEDS: COLLAGENASE 5 GM (UD JAR) TOP (08:35)
[2017-08-04] MEDS: DOCUSATE SODIUM 100 MG CAP PO ×2 (08:35→21:46)
[2017-08-04] MEDS: METOPROLOL 100 MG TAB PO ×2 (08:36→21:46)
[2017-08-04] MEDS: NYSTATIN 30 GM POWDER BTL TOP ×2 (08:36→21:48)
[2017-08-04] MEDS: SALMETEROL/FLUTICASONE 500/50 INHA INH ×2 (08:37→21:48)
[2017-08-04] MEDS: FLUTICASONE 0.05% 16 GM NAS SPRAY NASAL ×2 (08:37→21:48)
[2017-08-04] MEDS: RANITIDINE 150 MG TAB PO (21:45)
[2017-08-04] MEDS: MONTELUKAST 10 MG TAB PO (21:45)
[2017-08-04] MEDS: SENNA TAB PO (21:46)
[2017-08-04] MEDS: PRAMIPEXOLE 0.125 MG TAB PO (21:46)
[2017-08-04] MEDS: INSULIN GLARGINE [LANtus] 3 ML PEN SC (21:54)
[2017-08-05] MEDS: ALBUTEROL/IPRATROPIUM (NEB) 3 ML AMP HHN ×4 (02:23→20:45)
[2017-08-05] MEDS: ACCU-CHEK XX (02:33)
[2017-08-05] MEDS: PANTOPRAZOLE (EC) 40 MG TAB PO (06:13)
[2017-08-05 07:18] LABS: MAGNESIUM 1.6 mg/dl (1.7-2.5)
[2017-08-05] MEDS: INSULIN ASPART [NOVOLOG] 3 ML PEN SC ×7 (07:44→21:18)
[2017-08-05] MEDS: DOCUSATE SODIUM 100 MG CAP PO ×2 (08:44→21:18)
[2017-08-05] MEDS: METOPROLOL 100 MG TAB PO ×2 (08:44→21:22)
[2017-08-05] MEDS: GABAPENTIN 300 MG CAP PO ×3 (08:44→21:19)
[2017-08-05] MEDS: predniSONE 1 MG TAB PO ×2 (08:50→13:00)
[2017-08-05] MEDS: predniSONE 5 MG TAB PO (08:51)
[2017-08-05] MEDS: SALMETEROL/FLUTICASONE 500/50 INHA INH ×2 (09:00→21:20)
[2017-08-05] MEDS: FUROSEMIDE 40 MG TAB PO (11:55)
[2017-08-05] MEDS: MAGNESIUM SULFATE 2 GM/50 ML 50 ML IVPB (11:56)
[2017-08-05] MEDS: FLUTICASONE 0.05% 16 GM NAS SPRAY NASAL ×2 (12:04→21:20)
[2017-08-05] MEDS: NYSTATIN 30 GM POWDER BTL TOP ×2 (12:05→21:21)
[2017-08-05] MEDS: COLLAGENASE 5 GM (UD JAR) TOP (12:06)
[2017-08-05] MEDS: HYDROCODONE/APAP (7.5/325) TAB PO (16:13)
[2017-08-05] MEDS: INSULIN GLARGINE [LANtus] 3 ML PEN SC (21:17)
[2017-08-05] MEDS: RANITIDINE 150 MG TAB PO (21:18)
[2017-08-05] MEDS: MONTELUKAST 10 MG TAB PO (21:18)
[2017-08-05] MEDS: PRAMIPEXOLE 0.125 MG TAB PO (21:19)
[2017-08-05] MEDS: SENNA TAB PO (21:32)
[2017-08-06] MEDS: ALBUTEROL/IPRATROPIUM (NEB) 3 ML AMP HHN ×4 (01:05→21:04)
[2017-08-06] MEDS: ACCU-CHEK XX (02:00)
[2017-08-06] MEDS: PANTOPRAZOLE (EC) 40 MG TAB PO (05:50)
[2017-08-06 07:43] LABS: ADD MAN DIFF? NO
[2017-08-06 07:49] LABS: ABNORMAL IP MESSAGE 1; BASOPHILS % 0.7 % (0.0-2.0); EOSINOPHILS # 0.1 10^3/ul (0.0-0.5); EOSINOPHILS % 1.5 % (0.0-7.0); HEMATOCRIT 27.4 % (37.0-47.0); HEMOGLOBIN 8.8 g/dl (12.0-16.0); LYMPHOCYTES # 1.6 10^3/ul (0.8-2.9); LYMPHOCYTES % 26.8 % (15.0-51.0); MEAN CORPUSCULAR HEMOGLOBIN 30.3 pg (29.0-33.0); MEAN CORPUSCULAR HGB CONC 32.1 g/dl (32.0-37.0); MEAN CORPUSCULAR VOLUME 94.5 fl (82.0-101.0); MEAN PLATELET VOLUME 10.5 fl (7.4-10.4); MONOCYTES % 15.7 % (0.0-11.0); NEUTROPHIL # 3.3 10^3/ul (1.6-7.5); NEUTROPHILS % 54.3 % (39.0-77.0); NUCLEATED RED BLOOD CELLS% 0.3 /100WBC (0.0-0.0); PLATELET COUNT 97 10^3/UL (140-415); POSITIVE DIFF @See below; RED CELL DISTRIBUTION WIDTH 18.3 % (11.5-14.5)
[2017-08-06 07:49] LABS: WHITE BLOOD COUNT 6.1 10^3/ul (4.8-10.8)
[2017-08-06] MEDS: INSULIN ASPART [NOVOLOG] 3 ML PEN SC ×7 (07:55→21:03)
[2017-08-06] MEDS: predniSONE 1 MG TAB PO ×2 (08:00→13:56)
[2017-08-06] MEDS: predniSONE 5 MG TAB PO (08:00)
[2017-08-06 08:10] LABS: ALANINE AMINOTRANSFERASE 85 IU/L (13-69); ALBUMIN 2.3 g/dl (3.3-4.9); ALBUMIN/GLOBULIN RATIO 0.71; ALKALINE PHOSPHATASE 195 IU/L (42-121); ANION GAP 8 (8-16); ASPARTATE AMINO TRANSFERASE 80 IU/L (15-46); BILIRUBIN,INDIRECT 0.4 mg/dl (0-1.1); BILIRUBIN,TOTAL 0.4 mg/dl (0.2-1.3); BLOOD UREA NITROGEN 46 mg/dl (7-20); CALCIUM 8.8 mg/dl (8.4-10.2); CARBON DIOXIDE 38 mmol/L (21-31); CHLORIDE 98 mmol/L (97-110); CREATININE 0.95 mg/dl (0.44-1.00); GLUCOSE 156 mg/dl (70-220); MAGNESIUM 2.1 mg/dl (1.7-2.5); POTASSIUM 3.8 mmol/L (3.5-5.1); SODIUM 140 mmol/L (135-144); TOTAL PROTEIN 5.5 g/dl (6.1-8.1)
[2017-08-06] MEDS: COLLAGENASE 5 GM (UD JAR) TOP (09:08)
[2017-08-06] MEDS: SALMETEROL/FLUTICASONE 500/50 INHA INH ×2 (09:08→20:44)
[2017-08-06] MEDS: FLUTICASONE 0.05% 16 GM NAS SPRAY NASAL ×2 (09:09→20:44)
[2017-08-06] MEDS: GABAPENTIN 300 MG CAP PO ×3 (09:09→20:42)
[2017-08-06] MEDS: NYSTATIN 30 GM POWDER BTL TOP ×2 (09:10→20:44)
[2017-08-06] MEDS: FUROSEMIDE 40 MG INJ IV (09:10)
[2017-08-06] MEDS: METOPROLOL 100 MG TAB PO ×2 (09:10→20:47)
[2017-08-06] MEDS: DOCUSATE SODIUM 100 MG CAP PO ×2 (09:10→20:42)
[2017-08-06] MEDS: RANITIDINE 150 MG TAB PO (20:42)
[2017-08-06] MEDS: MONTELUKAST 10 MG TAB PO (20:42)
[2017-08-06] MEDS: PRAMIPEXOLE 0.125 MG TAB PO (20:42)
[2017-08-06] MEDS: SENNA TAB PO (20:42)
[2017-08-06] MEDS: INSULIN GLARGINE [LANtus] 3 ML PEN SC (21:04)
[2017-08-07] MEDS: ALBUTEROL/IPRATROPIUM (NEB) 3 ML AMP HHN ×4 (01:19→19:48)
[2017-08-07] MEDS: ACCU-CHEK XX (02:00)
[2017-08-07] MEDS: predniSONE 5 MG TAB PO ×2 (06:58→08:51)
[2017-08-07] MEDS: predniSONE 1 MG TAB PO ×2 (07:02→14:49)
[2017-08-07] MEDS: PANTOPRAZOLE (EC) 40 MG TAB PO (07:02)
[2017-08-07] MEDS: INSULIN ASPART [NOVOLOG] 3 ML PEN SC ×7 (08:13→20:47)
[2017-08-07 08:16] LABS: ADD MAN DIFF? NO
[2017-08-07 08:22] LABS: WHITE BLOOD COUNT 7.7 10^3/ul (4.8-10.8)
[2017-08-07 08:22] LABS: BASOPHILS % 0.5 % (0.0-2.0); EOSINOPHILS # 0.1 10^3/ul (0.0-0.5); EOSINOPHILS % 1.6 % (0.0-7.0); HEMATOCRIT 28.2 % (37.0-47.0); LYMPHOCYTES % 26.2 % (15.0-51.0); MEAN CORPUSCULAR HEMOGLOBIN 29.6 pg (29.0-33.0); MEAN CORPUSCULAR HGB CONC 31.9 g/dl (32.0-37.0); MEAN CORPUSCULAR VOLUME 92.8 fl (82.0-101.0); MEAN PLATELET VOLUME 11.4 fl (7.4-10.4); MONOCYTES % 13.1 % (0.0-11.0); NEUTROPHIL # 4.4 10^3/ul (1.6-7.5); NEUTROPHILS % 57.6 % (39.0-77.0); PLATELET COUNT 109 10^3/UL (140-415); RED BLOOD COUNT 3.04 10^6/ul (4.20-5.40); RED CELL DISTRIBUTION WIDTH 18.6 % (11.5-14.5)
[2017-08-07 08:46] LABS: ALANINE AMINOTRANSFERASE 83 IU/L (13-69); ALBUMIN 2.6 g/dl (3.3-4.9); ALBUMIN/GLOBULIN RATIO 0.76; ALKALINE PHOSPHATASE 215 IU/L (42-121); ANION GAP 12 (8-16); ASPARTATE AMINO TRANSFERASE 82 IU/L (15-46); BILIRUBIN,INDIRECT 0.6 mg/dl (0-1.1); BILIRUBIN,TOTAL 0.6 mg/dl (0.2-1.3); BLOOD UREA NITROGEN 46 mg/dl (7-20); CALCIUM 9.1 mg/dl (8.4-10.2); CARBON DIOXIDE 34 mmol/L (21-31); CHLORIDE 98 mmol/L (97-110); CREATININE 0.96 mg/dl (0.44-1.00); GLUCOSE 190 mg/dl (70-220); MAGNESIUM 1.9 mg/dl (1.7-2.5); POTASSIUM 3.7 mmol/L (3.5-5.1); SODIUM 140 mmol/L (135-144)
[2017-08-07] MEDS: GABAPENTIN 300 MG CAP PO ×3 (08:51→20:43)
[2017-08-07] MEDS: FUROSEMIDE 40 MG INJ IV (08:55)
[2017-08-07] MEDS: DOCUSATE SODIUM 100 MG CAP PO ×2 (10:53→20:43)
[2017-08-07] MEDS: METOPROLOL 100 MG TAB PO ×2 (10:55→20:45)
[2017-08-07] MEDS: SALMETEROL/FLUTICASONE 500/50 INHA INH ×2 (10:59→20:42)
[2017-08-07] MEDS: COLLAGENASE 5 GM (UD JAR) TOP (11:00)
[2017-08-07] MEDS: FLUTICASONE 0.05% 16 GM NAS SPRAY NASAL ×2 (11:00→20:42)
[2017-08-07] MEDS: NYSTATIN 30 GM POWDER BTL TOP ×2 (11:01→20:42)
[2017-08-07] MEDS: HYDROCODONE/APAP (7.5/325) TAB PO (19:38)
[2017-08-07] MEDS: RANITIDINE 150 MG TAB PO (20:43)
[2017-08-07] MEDS: MONTELUKAST 10 MG TAB PO (20:43)
[2017-08-07] MEDS: SENNA TAB PO (20:43)
[2017-08-07] MEDS: PRAMIPEXOLE 0.125 MG TAB PO (20:43)
[2017-08-07] MEDS: INSULIN GLARGINE [LANtus] 3 ML PEN SC (20:48)
[2017-08-08] MEDS: HYDROCODONE/APAP (7.5/325) TAB PO ×3 (00:20→21:30)
[2017-08-08] MEDS: ACCU-CHEK XX (02:00)
[2017-08-08] MEDS: ALBUTEROL/IPRATROPIUM (NEB) 3 ML AMP HHN ×4 (02:04→19:32)
[2017-08-08] MEDS: PANTOPRAZOLE (EC) 40 MG TAB PO (06:31)
[2017-08-08] MEDS: predniSONE 1 MG TAB PO ×3 (06:34→15:46)
[2017-08-08] MEDS: INSULIN ASPART [NOVOLOG] 3 ML PEN SC ×8 (07:35→21:44)
[2017-08-08] MEDS: COLLAGENASE 5 GM (UD JAR) TOP (09:00)
[2017-08-08] MEDS: NYSTATIN 30 GM POWDER BTL TOP ×2 (09:00→21:31)
[2017-08-08] MEDS: SALMETEROL/FLUTICASONE 500/50 INHA INH ×2 (09:00→21:31)
[2017-08-08] MEDS: FLUTICASONE 0.05% 16 GM NAS SPRAY NASAL ×2 (09:00→21:31)
[2017-08-08] MEDS: FUROSEMIDE 40 MG INJ IV (09:36)
[2017-08-08] MEDS: GABAPENTIN 300 MG CAP PO ×3 (09:41→21:28)
[2017-08-08] MEDS: DOCUSATE SODIUM 100 MG CAP PO ×2 (09:41→21:29)
[2017-08-08] MEDS: METOPROLOL 100 MG TAB PO ×2 (09:44→21:29)
[2017-08-08 12:15] LABS: HAAIG REFLEX REFLEX FILED
[2017-08-08 13:07] LABS: HEPATITIS B SURFACE ANTIGEN NEGATIVE (NEGATIVE)
[2017-08-08 13:24] LABS: HEPATITIS B CORE ANTIBODY REACTIVE (NEGATIVE); HEPATITIS C VIRAL ANTIBODY NEGATIVE (NEGATIVE)
[2017-08-08] MEDS: predniSONE 5 MG TAB PO (15:45)
[2017-08-08] MEDS: RANITIDINE 150 MG TAB PO (21:28)
[2017-08-08] MEDS: PRAMIPEXOLE 0.125 MG TAB PO (21:29)
[2017-08-08] MEDS: MONTELUKAST 10 MG TAB PO (21:29)
[2017-08-08] MEDS: SENNA TAB PO (21:29)
[2017-08-08] MEDS: INSULIN GLARGINE [LANtus] 3 ML PEN SC (21:40)
[2017-08-09] MEDS: ALBUTEROL/IPRATROPIUM (NEB) 3 ML AMP HHN ×7 (00:04→20:30)
[2017-08-09] MEDS: ACCU-CHEK XX (02:00)
[2017-08-09 04:57] LABS: PROTEIN, TOTAL 6.4 g/dL (6.1-8.1)
[2017-08-09] MEDS: PANTOPRAZOLE (EC) 40 MG TAB PO (06:17)
[2017-08-09] MEDS: HYDROCODONE/APAP (7.5/325) TAB PO ×2 (06:18→19:56)
[2017-08-09] MEDS: MAGNESIUM HYDROXIDE 30ML CUP PO (06:28)
[2017-08-09] MEDS: predniSONE 5 MG TAB PO (06:36)
[2017-08-09] MEDS: predniSONE 1 MG TAB PO ×2 (06:36→12:02)
[2017-08-09] MEDS: INSULIN ASPART [NOVOLOG] 3 ML PEN SC ×7 (08:33→22:04)
[2017-08-09] MEDS: SALMETEROL/FLUTICASONE 500/50 INHA INH ×2 (08:34→21:30)
[2017-08-09] MEDS: FUROSEMIDE 40 MG INJ IV ×2 (08:36→19:05)
[2017-08-09] MEDS: FLUTICASONE 0.05% 16 GM NAS SPRAY NASAL ×2 (08:37→21:30)
[2017-08-09] MEDS: DOCUSATE SODIUM 100 MG CAP PO ×2 (08:37→21:31)
[2017-08-09] MEDS: GABAPENTIN 300 MG CAP PO ×3 (08:37→21:31)
[2017-08-09] MEDS: METOPROLOL 100 MG TAB PO ×2 (08:37→21:31)
[2017-08-09] MEDS: COLLAGENASE 5 GM (UD JAR) TOP (08:38)
[2017-08-09] MEDS: NYSTATIN/TRIAMCINOLONE 15 GM CR TOP (08:38)
[2017-08-09] MEDS: NYSTATIN 30 GM POWDER BTL TOP ×2 (08:38→21:30)
[2017-08-09 13:16] LABS: ALPHA 1 ANTITRYPSIN 182 mg/dL (83-199)
[2017-08-09 14:01] LABS: ANA SCREEN NEGATIVE (NEGATIVE)
[2017-08-09 14:46] LABS: ALPHA-1-GLOBULINS 0.3 g/dL (0.2-0.3); ALPHA-2-GLOBULINS 0.7 g/dL (0.5-0.9); BETA 2 GLOBULINS 0.3 g/dL (0.2-0.5); BETA GLOBULINS 0.4 g/dL (0.4-0.6); GAMMA GLOBULINS 1.7 g/dL (0.8-1.7)
[2017-08-09] MEDS: HYDROCORTISONE 100 MG INJ IV ×2 (15:48→21:59)
[2017-08-09] MEDS: TIOTROPIUM 18 MCG CAPSULE INHA DEV INH (15:48)
[2017-08-09] MEDS: NPH, HUMAN INSULIN ISOPHANE 3ML VIAL SC ×2 (15:56→21:47)
[2017-08-09 20:26] LABS: POTASSIUM 4.3 mmol/L (3.5-5.1)
[2017-08-09 20:29] LABS: CALCIUM 9.3 mg/dl (8.4-10.2)
[2017-08-09] MEDS: SENNA TAB PO (21:31)
[2017-08-09] MEDS: MONTELUKAST 10 MG TAB PO (21:32)
[2017-08-09] MEDS: RANITIDINE 150 MG TAB PO (21:32)
[2017-08-09] MEDS: INSULIN GLARGINE [LANtus] 3 ML PEN SC (21:45)
[2017-08-09] MEDS: PRAMIPEXOLE 0.125 MG TAB PO (21:59)
[2017-08-10] MEDS: ALBUTEROL/IPRATROPIUM (NEB) 3 ML AMP HHN ×6 (00:19→20:48)
[2017-08-10] MEDS: ACCU-CHEK XX (02:45)
[2017-08-10] MEDS: HYDROCORTISONE 100 MG INJ IV (06:35)
[2017-08-10] MEDS: NPH, HUMAN INSULIN ISOPHANE 3ML VIAL SC (06:38)
[2017-08-10] MEDS: PANTOPRAZOLE (EC) 40 MG TAB PO (06:40)
[2017-08-10] MEDS: predniSONE 5 MG TAB PO ×2 (06:41→13:09)
[2017-08-10 07:01] LABS: ADD MAN DIFF? NO
[2017-08-10 07:05] LABS: WHITE BLOOD COUNT 14.8 10^3/ul (4.8-10.8)
[2017-08-10 07:05] LABS: BASOPHILS % 0.1 % (0.0-2.0); HEMATOCRIT 26.6 % (37.0-47.0); HEMOGLOBIN 8.8 g/dl (12.0-16.0); LYMPHOCYTES # 1.7 10^3/ul (0.8-2.9); LYMPHOCYTES % 11.4 % (15.0-51.0); MEAN CORPUSCULAR HEMOGLOBIN 30.6 pg (29.0-33.0); MEAN CORPUSCULAR HGB CONC 33.1 g/dl (32.0-37.0); MEAN CORPUSCULAR VOLUME 92.4 fl (82.0-101.0); MEAN PLATELET VOLUME 11.3 fl (7.4-10.4); NUCLEATED RED BLOOD CELLS% 0.1 /100WBC (0.0-0.0); PLATELET COUNT 105 10^3/UL (140-415); RED BLOOD COUNT 2.88 10^6/ul (4.20-5.40); RED CELL DISTRIBUTION WIDTH 18.1 % (11.5-14.5)
[2017-08-10 07:29] LABS: ANION GAP 10 (8-16); BLOOD UREA NITROGEN 48 mg/dl (7-20); CALCIUM 9.2 mg/dl (8.4-10.2); CARBON DIOXIDE 34 mmol/L (21-31); CHLORIDE 96 mmol/L (97-110); GLUCOSE 303 mg/dl (70-220); MAGNESIUM 1.9 mg/dl (1.7-2.5); POTASSIUM 4.2 mmol/L (3.5-5.1); SODIUM 136 mmol/L (135-144)
[2017-08-10] MEDS: INSULIN ASPART [NOVOLOG] 3 ML PEN SC ×7 (07:50→21:42)
[2017-08-10] MEDS: TIOTROPIUM 18 MCG CAPSULE INHA DEV INH (08:25)
[2017-08-10] MEDS: COLLAGENASE 5 GM (UD JAR) TOP (08:25)
[2017-08-10] MEDS: FUROSEMIDE 40 MG INJ IV (08:26)
[2017-08-10] MEDS: GABAPENTIN 300 MG CAP PO ×3 (08:29→21:29)
[2017-08-10] MEDS: DOCUSATE SODIUM 100 MG CAP PO ×2 (08:29→21:29)
[2017-08-10] MEDS: predniSONE 10 MG TAB PO (08:29)
[2017-08-10] MEDS: NYSTATIN 30 GM POWDER BTL TOP ×2 (08:30→21:30)
[2017-08-10] MEDS: FLUTICASONE 0.05% 16 GM NAS SPRAY NASAL ×2 (08:30→21:30)
[2017-08-10] MEDS: METOPROLOL 100 MG TAB PO ×2 (08:30→21:29)
[2017-08-10] MEDS: SALMETEROL/FLUTICASONE 500/50 INHA INH ×2 (08:31→21:30)
[2017-08-10] MEDS: NYSTATIN/TRIAMCINOLONE 15 GM CR TOP (08:31)
[2017-08-10] MEDS: MONTELUKAST 10 MG TAB PO (21:28)
[2017-08-10] MEDS: PRAMIPEXOLE 0.125 MG TAB PO (21:28)
[2017-08-10] MEDS: SENNA TAB PO (21:28)
[2017-08-10] MEDS: RANITIDINE 150 MG TAB PO (21:29)
[2017-08-10] MEDS: INSULIN GLARGINE [LANtus] 3 ML PEN SC (21:41)
[2017-08-11] MEDS: ALBUTEROL/IPRATROPIUM (NEB) 3 ML AMP HHN ×6 (01:19→20:19)
[2017-08-11] MEDS: ACCU-CHEK XX (02:13)
[2017-08-11 06:51] LABS: ADD MAN DIFF? NO
[2017-08-11] MEDS: predniSONE 10 MG TAB PO (06:58)
[2017-08-11] MEDS: PANTOPRAZOLE (EC) 40 MG TAB PO (06:58)
[2017-08-11 07:08] LABS: BASOPHILS % 0.2 % (0.0-2.0); EOSINOPHILS % 0.2 % (0.0-7.0); HEMATOCRIT 26.3 % (37.0-47.0); HEMOGLOBIN 8.6 g/dl (12.0-16.0); LYMPHOCYTES % 17.3 % (15.0-51.0); MEAN CORPUSCULAR HGB CONC 32.7 g/dl (32.0-37.0); MEAN CORPUSCULAR VOLUME 91.6 fl (82.0-101.0); MEAN PLATELET VOLUME 11.1 fl (7.4-10.4); MONOCYTE # 1.2 10^3/ul (0.3-0.9); MONOCYTES % 10.4 % (0.0-11.0); NEUTROPHIL # 8.1 10^3/ul (1.6-7.5); NEUTROPHILS % 70.8 % (39.0-77.0); NUCLEATED RED BLOOD CELLS% 0.3 /100WBC (0.0-0.0); PLATELET COUNT 125 10^3/UL (140-415); RED BLOOD COUNT 2.87 10^6/ul (4.20-5.40); RED CELL DISTRIBUTION WIDTH 18.2 % (11.5-14.5); RETICULOCYTE COUNT # 0.128 X10^6 (0.020-0.110); RETICULOCYTE COUNT % 4.5 % (0.5-1.5); RETICULOCYTE RBC 2.87
[2017-08-11 07:08] LABS: WHITE BLOOD COUNT 11.4 10^3/ul (4.8-10.8)
[2017-08-11 07:20] LABS: IRON 43 ug/dl (35-150)
[2017-08-11 07:29] LABS: % IRON SATURATION 15 % SAT (22-52); TOTAL IRON BINDING CAPACITY 286 ug/dl (241-421)
[2017-08-11] MEDS: INSULIN ASPART [NOVOLOG] 3 ML PEN SC ×7 (07:35→21:31)
[2017-08-11 08:36] LABS: FOLATE > 20.0 ng/ml (2.8-20.0)
[2017-08-11] MEDS: GABAPENTIN 300 MG CAP PO ×3 (08:58→21:21)
[2017-08-11] MEDS: DOCUSATE SODIUM 100 MG CAP PO ×2 (08:58→21:21)
[2017-08-11] MEDS: TIOTROPIUM 18 MCG CAPSULE INHA DEV INH (08:58)
[2017-08-11] MEDS: FUROSEMIDE 40 MG INJ IV (08:58)
[2017-08-11] MEDS: FERROUS FUMARATE (SR) TAB PO (08:58)
[2017-08-11] MEDS: NYSTATIN/TRIAMCINOLONE 15 GM CR TOP (08:59)
[2017-08-11] MEDS: METOPROLOL 100 MG TAB PO ×2 (08:59→21:22)
[2017-08-11] MEDS: COLLAGENASE 5 GM (UD JAR) TOP (08:59)
[2017-08-11] MEDS: FLUTICASONE 0.05% 16 GM NAS SPRAY NASAL ×2 (08:59→21:24)
[2017-08-11] MEDS: SALMETEROL/FLUTICASONE 500/50 INHA INH ×2 (08:59→21:00)
[2017-08-11] MEDS: NYSTATIN 30 GM POWDER BTL TOP ×2 (09:00→21:00)
[2017-08-11] MEDS: HYDROCODONE/APAP (7.5/325) TAB PO (11:38)
[2017-08-11] MEDS: predniSONE 5 MG TAB PO (15:26)
[2017-08-11] MEDS: PRAMIPEXOLE 0.125 MG TAB PO (21:21)
[2017-08-11] MEDS: MONTELUKAST 10 MG TAB PO (21:21)
[2017-08-11] MEDS: SENNA TAB PO (21:22)
[2017-08-11] MEDS: RANITIDINE 150 MG TAB PO (21:22)
[2017-08-11] MEDS: INSULIN GLARGINE [LANtus] 3 ML PEN SC (21:32)
[2017-08-12] MEDS: ALBUTEROL/IPRATROPIUM (NEB) 3 ML AMP HHN ×6 (00:55→20:00)
[2017-08-12] MEDS: ACCU-CHEK XX (02:00)
[2017-08-12] MEDS: PANTOPRAZOLE (EC) 40 MG TAB PO (06:02)
[2017-08-12] MEDS: predniSONE 10 MG TAB PO (06:06)
[2017-08-12] MEDS: COLLAGENASE 5 GM (UD JAR) TOP (09:00)
[2017-08-12] MEDS: DOCUSATE SODIUM 100 MG CAP PO ×2 (09:00→20:48)
[2017-08-12] MEDS: NYSTATIN 30 GM POWDER BTL TOP ×2 (09:00→20:54)
[2017-08-12] MEDS: FLUTICASONE/VILANTEROL 200-25 INH DEVICE INH ×2 (09:00→17:55)
[2017-08-12] MEDS: NYSTATIN/TRIAMCINOLONE 15 GM CR TOP (09:00)
[2017-08-12] MEDS: GABAPENTIN 300 MG CAP PO ×3 (09:04→20:40)
[2017-08-12] MEDS: FERROUS FUMARATE (SR) TAB PO (09:04)
[2017-08-12] MEDS: METOPROLOL 100 MG TAB PO ×2 (09:04→20:48)
[2017-08-12] MEDS: TIOTROPIUM 18 MCG CAPSULE INHA DEV INH (09:05)
[2017-08-12] MEDS: FLUTICASONE 0.05% 16 GM NAS SPRAY NASAL ×2 (09:10→20:49)
[2017-08-12] MEDS: INSULIN ASPART [NOVOLOG] 3 ML PEN SC ×7 (09:18→20:53)
[2017-08-12 09:32] LABS: OCCULT BLOOD STOOL POSITIVE (NEGATIVE)
[2017-08-12] MEDS: FUROSEMIDE 40 MG TAB PO (09:36)
[2017-08-12] MEDS: predniSONE 5 MG TAB PO (14:22)
[2017-08-12] MEDS: MONTELUKAST 10 MG TAB PO (20:40)
[2017-08-12] MEDS: PRAMIPEXOLE 0.125 MG TAB PO (20:40)
[2017-08-12] MEDS: RANITIDINE 150 MG TAB PO (20:40)
[2017-08-12] MEDS: SENNA TAB PO (20:48)
[2017-08-12] MEDS: INSULIN GLARGINE [LANtus] 3 ML PEN SC (20:54)
[2017-08-13] MEDS: ALBUTEROL/IPRATROPIUM (NEB) 3 ML AMP HHN ×6 (00:10→21:20)
[2017-08-13] MEDS: HYDROCODONE/APAP (7.5/325) TAB PO ×2 (01:49→21:14)
[2017-08-13] MEDS: ACCU-CHEK XX (02:00)
[2017-08-13] MEDS: PANTOPRAZOLE (EC) 40 MG TAB PO (06:14)
[2017-08-13] MEDS: predniSONE 10 MG TAB PO (06:14)
[2017-08-13 06:44] LABS: ADD MAN DIFF? NO
[2017-08-13 06:46] LABS: WHITE BLOOD COUNT 7.5 10^3/ul (4.8-10.8)
[2017-08-13 06:46] LABS: BASOPHILS % 0.4 % (0.0-2.0); EOSINOPHILS # 0.1 10^3/ul (0.0-0.5); EOSINOPHILS % 1.2 % (0.0-7.0); HEMATOCRIT 27.9 % (37.0-47.0); HEMOGLOBIN 8.9 g/dl (12.0-16.0); LYMPHOCYTES # 1.5 10^3/ul (0.8-2.9); LYMPHOCYTES % 19.5 % (15.0-51.0); MEAN CORPUSCULAR HEMOGLOBIN 29.8 pg (29.0-33.0); MEAN CORPUSCULAR HGB CONC 31.9 g/dl (32.0-37.0); MEAN CORPUSCULAR VOLUME 93.3 fl (82.0-101.0); MEAN PLATELET VOLUME 10.6 fl (7.4-10.4); MONOCYTE # 1.2 10^3/ul (0.3-0.9); MONOCYTES % 16.2 % (0.0-11.0); NEUTROPHIL # 4.6 10^3/ul (1.6-7.5); NUCLEATED RED BLOOD CELLS% 0.3 /100WBC (0.0-0.0); PLATELET COUNT 152 10^3/UL (140-415); RED BLOOD COUNT 2.99 10^6/ul (4.20-5.40); RED CELL DISTRIBUTION WIDTH 18.5 % (11.5-14.5)
[2017-08-13 07:09] LABS: ALANINE AMINOTRANSFERASE 82 IU/L (13-69); ALBUMIN 2.6 g/dl (3.3-4.9); ALBUMIN/GLOBULIN RATIO 0.76; ALKALINE PHOSPHATASE 175 IU/L (42-121); ANION GAP 9 (8-16); ASPARTATE AMINO TRANSFERASE 88 IU/L (15-46); BILIRUBIN,INDIRECT 0.5 mg/dl (0-1.1); BILIRUBIN,TOTAL 0.5 mg/dl (0.2-1.3); BLOOD UREA NITROGEN 59 mg/dl (7-20); CALCIUM 8.9 mg/dl (8.4-10.2); CARBON DIOXIDE 34 mmol/L (21-31); CHLORIDE 100 mmol/L (97-110); CREATININE 1.09 mg/dl (0.44-1.00); GLUCOSE 255 mg/dl (70-220); MAGNESIUM 1.8 mg/dl (1.7-2.5); POTASSIUM 4.1 mmol/L (3.5-5.1); SODIUM 139 mmol/L (135-144)
[2017-08-13] MEDS: INSULIN ASPART [NOVOLOG] 3 ML PEN SC ×7 (07:47→21:00)
[2017-08-13] MEDS: TIOTROPIUM 18 MCG CAPSULE INHA DEV INH (09:00)
[2017-08-13] MEDS: FLUTICASONE 0.05% 16 GM NAS SPRAY NASAL ×2 (09:16→21:13)
[2017-08-13] MEDS: NYSTATIN 30 GM POWDER BTL TOP ×2 (09:17→21:00)
[2017-08-13] MEDS: COLLAGENASE 5 GM (UD JAR) TOP (09:17)
[2017-08-13] MEDS: NYSTATIN/TRIAMCINOLONE 15 GM CR TOP (09:17)
[2017-08-13] MEDS: FLUTICASONE/VILANTEROL 200-25 INH DEVICE INH (09:18)
[2017-08-13] MEDS: FERROUS FUMARATE (SR) TAB PO (09:19)
[2017-08-13] MEDS: DOCUSATE SODIUM 100 MG CAP PO ×2 (09:20→21:00)
[2017-08-13] MEDS: FUROSEMIDE 40 MG TAB PO (09:20)
[2017-08-13] MEDS: GABAPENTIN 300 MG CAP PO ×3 (09:20→21:14)
[2017-08-13] MEDS: METOPROLOL 100 MG TAB PO ×2 (09:21→21:15)
[2017-08-13] MEDS: predniSONE 5 MG TAB PO (11:58)
[2017-08-13] MEDS: MECLIZINE 12.5 MG TAB PO (14:12)
[2017-08-13] MEDS ORDERED: INSULIN ASPART [NOVOLOG] 3 ML PEN SC (17:35)
[2017-08-13] MEDS ORDERED: INSULIN GLARGINE [LANtus] 3 ML PEN SC (20:00)
[2017-08-13] MEDS: SENNA TAB PO (21:00)
[2017-08-13] MEDS: MONTELUKAST 10 MG TAB PO (21:15)
[2017-08-13] MEDS: RANITIDINE 150 MG TAB PO (21:15)
[2017-08-13] MEDS: PRAMIPEXOLE 0.125 MG TAB PO (21:15)
[2017-08-13] MEDS: INSULIN GLARGINE [LANtus] 3 ML PEN SC (22:12)
[2017-08-14] MEDS: ALBUTEROL/IPRATROPIUM (NEB) 3 ML AMP HHN ×5 (01:13→17:14)
[2017-08-14] MEDS: ACCU-CHEK XX (02:00)
[2017-08-14] MEDS: predniSONE 2.5 MG TAB PO ×2 (06:19→12:25)
[2017-08-14] MEDS: PANTOPRAZOLE (EC) 40 MG TAB PO (06:19)
[2017-08-14] MEDS ORDERED: predniSONE 2.5 MG TAB PO ×2 (07:05→13:00)
[2017-08-14] MEDS ORDERED: predniSONE 10 MG TAB PO (07:05)
[2017-08-14] MEDS: INSULIN ASPART [NOVOLOG] 3 ML PEN SC ×6 (07:35→17:54)
[2017-08-14] MEDS ORDERED: INSULIN ASPART [NOVOLOG] 3 ML PEN SC ×2 (07:35→12:00)
[2017-08-14 07:53] LABS: ADD MAN DIFF? NO
[2017-08-14 07:59] LABS: BASOPHILS % 0.3 % (0.0-2.0); EOSINOPHILS # 0.2 10^3/ul (0.0-0.5); EOSINOPHILS % 1.7 % (0.0-7.0); HEMATOCRIT 29.6 % (37.0-47.0); HEMOGLOBIN 9.5 g/dl (12.0-16.0); LYMPHOCYTES # 2.4 10^3/ul (0.8-2.9); LYMPHOCYTES % 27.2 % (15.0-51.0); MEAN CORPUSCULAR HEMOGLOBIN 29.7 pg (29.0-33.0); MEAN CORPUSCULAR HGB CONC 32.1 g/dl (32.0-37.0); MEAN CORPUSCULAR VOLUME 92.5 fl (82.0-101.0); MEAN PLATELET VOLUME 10.6 fl (7.4-10.4); MONOCYTE # 1.3 10^3/ul (0.3-0.9); MONOCYTES % 15.1 % (0.0-11.0); NEUTROPHIL # 4.7 10^3/ul (1.6-7.5); NUCLEATED RED BLOOD CELLS% 0.3 /100WBC (0.0-0.0); PLATELET COUNT 168 10^3/UL (140-415); RED CELL DISTRIBUTION WIDTH 18.5 % (11.5-14.5)
[2017-08-14 07:59] LABS: WHITE BLOOD COUNT 8.8 10^3/ul (4.8-10.8)
[2017-08-14 08:34] LABS: ALANINE AMINOTRANSFERASE 77 IU/L (13-69); ALBUMIN/GLOBULIN RATIO 0.81; ALKALINE PHOSPHATASE 181 IU/L (42-121); ANION GAP 11 (8-16); ASPARTATE AMINO TRANSFERASE 79 IU/L (15-46); BILIRUBIN,INDIRECT 0.7 mg/dl (0-1.1); BILIRUBIN,TOTAL 0.7 mg/dl (0.2-1.3); BLOOD UREA NITROGEN 55 mg/dl (7-20); CALCIUM 9.4 mg/dl (8.4-10.2); CARBON DIOXIDE 36 mmol/L (21-31); CHLORIDE 100 mmol/L (97-110); CREATININE 1.08 mg/dl (0.44-1.00); GLUCOSE 94 mg/dl (70-220); MAGNESIUM 1.8 mg/dl (1.7-2.5); POTASSIUM 3.6 mmol/L (3.5-5.1); SODIUM 143 mmol/L (135-144); TOTAL PROTEIN 6.7 g/dl (6.1-8.1)
[2017-08-14] MEDS: GABAPENTIN 300 MG CAP PO ×2 (09:03→12:25)
[2017-08-14] MEDS: DOCUSATE SODIUM 100 MG CAP PO (09:04)
[2017-08-14] MEDS: FERROUS FUMARATE (SR) TAB PO (09:05)
[2017-08-14] MEDS: FUROSEMIDE 40 MG TAB PO (09:05)
[2017-08-14] MEDS: METOPROLOL 100 MG TAB PO (09:06)
[2017-08-14] MEDS: COLLAGENASE 5 GM (UD JAR) TOP (09:07)
[2017-08-14] MEDS: NYSTATIN/TRIAMCINOLONE 15 GM CR TOP (09:08)
[2017-08-14] MEDS: FLUTICASONE 0.05% 16 GM NAS SPRAY NASAL (09:08)
[2017-08-14] MEDS: NYSTATIN 30 GM POWDER BTL TOP (09:08)
[2017-08-14] MEDS: FLUTICASONE/VILANTEROL 200-25 INH DEVICE INH (09:08)
[2017-08-14] MEDS: TIOTROPIUM 18 MCG CAPSULE INHA DEV INH (09:09)
[2017-08-14 10:11] LABS: OCCULT BLOOD STOOL NEGATIVE (NEGATIVE)
[2017-08-14 12:57] LABS: AADO2 Arterial 18.1 mmHg (7.0-24.0); Allen Test ACCEPTAB; Arterial Base Excess 7.5 mmol/L (-3.0-3); Arterial Blood Gas Oxygen Sat 96.2 mmHG (95.0-100.0); Arterial COHb 0.2 % (0.0-3.0); Arterial Fraction of Oxyhgb 95.7 % (93.0-99.0); Arterial MetHb 0.3 % (0.0-1.5); Arterial Total Hemglobin 11.4 g/dl (12.0-18.0); Arterial pCO2 39.6 mmhg (35-45); MODE ROOM AIR; Site Left Radial
[2017-08-14 20:17] LABS: AMMONIA 187 umol/l (9-30)
[2017-08-14 20:58] LABS: ADD UMIC YES; UR ASCORBIC ACID NEGATIVE (NEGATIVE); UR BACTERIA MODERATE /HPF (NONE SEEN); UR BILIRUBIN (Dip) NEGATIVE (NEGATIVE); UR BLOOD (Dip) NEGATIVE (NEGATIVE); UR CLARITY CLEAR (CLEAR); UR COLOR YELLOW (YELLOW); UR GLUCOSE (Dip) NEGATIVE (NEGATIVE); UR KETONES (Dip) NEGATIVE (NEGATIVE); UR LEUKOCYTE ESTERASE (Dip) TRACE Leu/ul (NEGATIVE); UR NITRITE (Dip) NEGATIVE (NEGATIVE); UR RBC 0 /HPF (0-5); UR SPECIFIC GRAVITY (Dip) 1.008 (1.003-1.030); UR TOTAL PROTEIN (Dip) 2+ mg/dl (NEGATIVE); UR UROBILINOGEN (Dip) NEGATIVE (NEGATIVE); UR WBC 2 /HPF (0-5)
== END 2017-08-14 18:36 | disposition short-term general hospital (02) | DRG 637 ==
LOC: VRC 22:30
PROC: F08Z1ZZ Dressing Techniques Treatment (ICD-10-PCS; principal; 2017-07-25)
PROC: F08Z0ZZ Bathing/Showering Techniques Treatment (ICD-10-PCS; 2017-07-25)
PROC: F08Z2ZZ Grooming/Personal Hygiene Treatment (ICD-10-PCS; 2017-07-25)
PROC: F07Z5ZZ Bed Mobility Treatment (ICD-10-PCS; 2017-07-25)
PROC: F07Z8ZZ Transfer Training Treatment (ICD-10-PCS; 2017-07-25)
PROC: F07Z9ZZ Gait Training/Functional Ambulation Treatment (ICD-10-PCS; 2017-07-25)
PROC: F07Z4ZZ Wheelchair Mobility Treatment (ICD-10-PCS; 2017-07-25)
PROC: 5A09357 Assistance with Respiratory Ventilation, Less than 24 Consecutive Hours, Continuous Positive Airway Pressure (ICD-10-PCS; 2017-07-26)
DX: E10.649 Type 1 diabetes mellitus with hypoglycemia without coma (principal); J15.5 Pneumonia due to Escherichia coli; I50.41 Acute combined systolic (congestive) and diastolic (congestive) heart failure; J96.92 Respiratory failure, unspecified with hypercapnia; D62 Acute posthemorrhagic anemia; N39.0 Urinary tract infection, site not specified; I13.0 Hypertensive heart and chronic kidney disease with heart failure and stage 1 through stage 4 chronic kidney disease, or unspecified chronic kidney disease; L97.909 Non-pressure chronic ulcer of unspecified part of unspecified lower leg with unspecified severity; Z68.41 Body mass index [BMI] 40.0-44.9, adult; G92 Toxic encephalopathy; N17.9 Acute kidney failure, unspecified; R79.89 Other specified abnormal findings of blood chemistry; I25.10 Atherosclerotic heart disease of native coronary artery without angina pectoris; Z86.718 Personal history of other venous thrombosis and embolism; Z95.828 Presence of other vascular implants and grafts; E11.22 Type 2 diabetes mellitus with diabetic chronic kidney disease; Z96.41 Presence of insulin pump (external) (internal); R13.10 Dysphagia, unspecified; G72.9 Myopathy, unspecified; I83.009 Varicose veins of unspecified lower extremity with ulcer of unspecified site; E66.01 Morbid (severe) obesity due to excess calories; B96.20 Unspecified Escherichia coli [E. coli] as the cause of diseases classified elsewhere; G47.30 Sleep apnea, unspecified; J45.40 Moderate persistent asthma, uncomplicated; F06.31 Mood disorder due to known physiological condition with depressive features; F09 Unspecified mental disorder due to known physiological condition; N18.3 Chronic kidney disease, stage 3 (moderate); E10.22 Type 1 diabetes mellitus with diabetic chronic kidney disease; E10.40 Type 1 diabetes mellitus with diabetic neuropathy, unspecified; E83.42 Hypomagnesemia; G93.1 Anoxic brain damage, not elsewhere classified; R41.82 Altered mental status, unspecified; M54.6 Pain in thoracic spine; L89.159 Pressure ulcer of sacral region, unspecified stage
CPT/HCPCS: 36600; 70450; 70551; 71045; 72072; 78226; 80048; 80053; 81001; 82103; 82140; 82270; 82310; 82607; 82728; 82746; 82803; 82962; 83036; 83540; 83735; 84132; 84155; 84165; 85025; 85045; 86038; 86704; 86709; 86803; 86885; 87081; 87086; 87340; 92507; 93005; 94640; 94660; 95819; 97110; 97112; 97116; 97163; 97530; 97535; 97542

== ENCOUNTER 2017-08-14 18:48 | Inpatient (IN) | payer MEDICARE, OTHER ==
[2017-08-14 21:08] LABS: ADD MAN DIFF? NO
[2017-08-14 21:10] LABS: ABNORMAL IP MESSAGE 1; BASOPHIL # 0.1 10^3/ul (0.0-0.1); BASOPHILS % 0.5 % (0.0-2.0); EOSINOPHILS # 0.2 10^3/ul (0.0-0.5); EOSINOPHILS % 1.3 % (0.0-7.0); HEMATOCRIT 30.7 % (37.0-47.0); HEMOGLOBIN 10.1 g/dl (12.0-16.0); LYMPHOCYTES # 2.8 10^3/ul (0.8-2.9); MEAN CORPUSCULAR HEMOGLOBIN 30.3 pg (29.0-33.0); MEAN CORPUSCULAR HGB CONC 32.9 g/dl (32.0-37.0); MEAN CORPUSCULAR VOLUME 92.2 fl (82.0-101.0); MEAN PLATELET VOLUME 10.2 fl (7.4-10.4); MONOCYTE # 1.9 10^3/ul (0.3-0.9); MONOCYTES % 16.8 % (0.0-11.0); NEUTROPHIL # 6.4 10^3/ul (1.6-7.5); NEUTROPHILS % 55.2 % (39.0-77.0); NUCLEATED RED BLOOD CELLS # 0.1 10^3/ul (0.0-0.0); NUCLEATED RED BLOOD CELLS% 0.4 /100WBC (0.0-0.0); PLATELET COUNT 190 10^3/UL (140-415); RED BLOOD COUNT 3.33 10^6/ul (4.20-5.40); RED CELL DISTRIBUTION WIDTH 18.5 % (11.5-14.5)
[2017-08-14 21:10] LABS: WHITE BLOOD COUNT 11.6 10^3/ul (4.8-10.8)
[2017-08-14 21:14] LABS: POSITIVE DIFF @See below
[2017-08-14 21:28] LABS: ALANINE AMINOTRANSFERASE 76 IU/L (13-69); ALBUMIN 2.9 g/dl (3.3-4.9); ALBUMIN/GLOBULIN RATIO 0.85; ALKALINE PHOSPHATASE 190 IU/L (42-121); ANION GAP 10 (8-16); ASPARTATE AMINO TRANSFERASE 80 IU/L (15-46); BILIRUBIN,INDIRECT 0.6 mg/dl (0-1.1); BILIRUBIN,TOTAL 0.6 mg/dl (0.2-1.3); BLOOD UREA NITROGEN 56 mg/dl (7-20); CALCIUM 9.9 mg/dl (8.4-10.2); CARBON DIOXIDE 36 mmol/L (21-31); CHLORIDE 102 mmol/L (97-110); GLUCOSE 67 mg/dl (70-220); POTASSIUM 3.7 mmol/L (3.5-5.1); SODIUM 144 mmol/L (135-144); TOTAL PROTEIN 6.3 g/dl (6.1-8.1)
[2017-08-14] MEDS: DEXTROSE 5%-0.45% NACL 1,000 ML IV (21:31)
[2017-08-14 22:11] LABS: LACTIC ACID 2.9 mmol/L (0.5-2.0)
[2017-08-14] MEDS ORDERED: DEXTROSE 50% 50 ML SYRINGE (23:32)
[2017-08-15] MEDS ORDERED: GLUCAGON 1 MG INJ IM (00:15)
[2017-08-15] MEDS ORDERED: GLUCOSE GEL 15 GRAM TUBE BUCCAL (00:15)
[2017-08-15] MEDS ORDERED: GLUCOSE GEL 15 GRAM TUBE PO ×2 (00:15)
[2017-08-15] MEDS: NA BICARBONATE 8.4% 50 ML SYG IV (00:32)
[2017-08-15] MEDS: DEXTROSE 50% 50 ML SYRINGE IV (00:32)
[2017-08-15] MEDS: Insulin NOVOLOG SS MILD Algorithm (NPO/TPN/ENTERAL FEEDS) SC ×6 (01:00→21:18)
[2017-08-15] MEDS ORDERED: INSULIN ASPART [NOVOLOG] 3 ML PEN SC ×2 (01:00→07:35)
[2017-08-15] MEDS: LACTULOSE ENEMA 1,000 ML BTL PR ×3 (04:19→12:49)
[2017-08-15 05:47] LABS: HAAIG REFLEX REFLEX FILED
[2017-08-15 06:03] LABS: LACTIC ACID 1.6 mmol/L (0.5-2.0)
[2017-08-15 06:03] LABS: AMMONIA 77 umol/l (9-30)
[2017-08-15 06:43] LABS: HEPATITIS B SURFACE ANTIGEN NEGATIVE (NEGATIVE)
[2017-08-15 07:01] LABS: HEPATITIS B CORE ANTIBODY REACTIVE (NEGATIVE); HEPATITIS C VIRAL ANTIBODY NEGATIVE (NEGATIVE)
[2017-08-15 07:41] LABS: ALANINE AMINOTRANSFERASE 79 IU/L (13-69); ALBUMIN/GLOBULIN RATIO 0.75; ALKALINE PHOSPHATASE 198 IU/L (42-121); ASPARTATE AMINO TRANSFERASE 79 IU/L (15-46); BILIRUBIN,INDIRECT 0.8 mg/dl (0-1.1); BILIRUBIN,TOTAL 0.8 mg/dl (0.2-1.3); BLOOD UREA NITROGEN 51 mg/dl (7-20); CALCIUM 9.5 mg/dl (8.4-10.2); CHLORIDE 99 mmol/L (97-110); CREATININE 1.07 mg/dl (0.44-1.00); GAMMA GLUTAMYL TRANSPEPTIDASE 581 IU/L (0-50); GLUCOSE 199 mg/dl (70-220); POTASSIUM 3.5 mmol/L (3.5-5.1); SODIUM 145 mmol/L (135-144)
[2017-08-15 07:51] LABS: ANION GAP 8 (8-16); CARBON DIOXIDE 42 mmol/L (21-31)
[2017-08-15 08:12] LABS: CANCER ANTIGEN 125 71.5 U/ml (0.0-35.0)
[2017-08-15] MEDS: DEXTROSE 5%-0.45% NACL 1,000 ML IV ×2 (09:30→14:03)
[2017-08-15 09:49] LABS: ALPHA FETOPROTEIN 4.28 IU/L (0.00-7.21)
[2017-08-15] MEDS: CIPROFLOXACIN 400MG/D5W 200 ML IVPB (09:57)
[2017-08-15] MEDS ORDERED: BISACODYL 10 MG SUPP PR (11:30)
[2017-08-15] MEDS ORDERED: ALTEPLASE (CATHFLO) 2 MG INJ CATHETER (11:30)
[2017-08-15] MEDS: METOPROLOL 100 MG TAB NGT ×2 (11:58→20:55)
[2017-08-15] MEDS ORDERED: LEVALBUTEROL (NEB) 1.25 MG/0.5 ML AMP HHN (12:00)
[2017-08-15] MEDS ORDERED: VANCOMYCIN IV PER PHARMACY XX (12:00)
[2017-08-15] MEDS ORDERED: ONDANSETRON 4 MG INJ IV (12:00)
[2017-08-15 12:49] LABS: AADO2 Arterial 48.9 mmHg (7.0-24.0); Allen Test ACCEPTAB; Arterial Base Excess 9.9 mmol/L (-3.0-3); Arterial Blood Gas Oxygen Sat 96.8 mmHG (95.0-100.0); Arterial COHb 0.2 % (0.0-3.0); Arterial Fraction of Oxyhgb 96.4 % (93.0-99.0); Arterial HCO3 34.1 mmol/L (22.0-26.0); Arterial MetHb 0.2 % (0.0-1.5); Arterial Total Hemglobin 10.9 g/dl (12.0-18.0); Arterial pCO2 44.3 mmhg (35-45); MODE NASAL CANNULA; Site Right Radial
[2017-08-15] MEDS: FUROSEMIDE 20 MG INJ IV (12:49)
[2017-08-15] MEDS: FLUTICASONE/VILANTEROL 100-25 INH (13:00)
[2017-08-15] MEDS: ALBUTEROL 0.083% (NEB) 2.5 MG/3 ML AMP HHN (13:00)
[2017-08-15] MEDS: PANTOPRAZOLE 40 MG INJ IV (13:20)
[2017-08-15] MEDS: PIPER-TAZO 3.375 GM IV (PMX) 100 ML IVPB ×2 (13:20→21:16)
[2017-08-15] MEDS: TIOTROPIUM 18 MCG CAPSULE INHA DEV INH (13:33)
[2017-08-15] MEDS: GABAPENTIN 300 MG CAP NGT ×2 (13:34→20:55)
[2017-08-15] MEDS: predniSONE 2.5 MG TAB NGT (13:34)
[2017-08-15] MEDS: NYSTATIN 30 GM POWDER BTL TOP ×2 (13:34→20:56)
[2017-08-15] MEDS: NYSTATIN/TRIAMCINOLONE 15 GM CR TOP (13:35)
[2017-08-15] MEDS: LEVALBUTEROL (NEB) 1.25 MG/0.5 ML AMP HHN ×2 (14:29→19:37)
[2017-08-15 15:20] LABS: IRON 79 ug/dl (35-150)
[2017-08-15] MEDS: RIFAXIMIN 550 MG TAB PO ×2 (15:27→20:55)
[2017-08-15 15:31] LABS: % IRON SATURATION 28 % SAT (22-52); TOTAL IRON BINDING CAPACITY 287 ug/dl (241-421)
[2017-08-15] MEDS: VANCOMYCIN 2 GM in SOD CHLORIDE 0.9% 500 ML IVPB (15:44)
[2017-08-15 15:53] LABS: HEPATITIS B SURFACE ANTIGEN NEGATIVE (NEGATIVE)
[2017-08-15 15:58] LABS: ERYTHROCYTE SEDIMENTATION RATE 70 mm/Hr (0-30)
[2017-08-15 16:10] LABS: HEPATITIS B CORE ANTIBODY REACTIVE (NEGATIVE); HEPATITIS C VIRAL ANTIBODY NEGATIVE (NEGATIVE)
[2017-08-15 16:20] LABS: HEPATITIS B SURFACE ANTIBODY NEGATIVE (NEGATIVE)
[2017-08-15] MEDS: PRAMIPEXOLE 0.125 MG TAB PO (20:55)
[2017-08-15] MEDS: MONTELUKAST 10 MG TAB PO (20:55)
[2017-08-15] MEDS: RANITIDINE 150 MG TAB PO (20:55)
[2017-08-16] MEDS: OXYCODONE/ACETAMINOPHEN (5/325) TAB PO (00:20)
[2017-08-16] MEDS: Insulin NOVOLOG SS MILD Algorithm (NPO/TPN/ENTERAL FEEDS) SC ×6 (00:27→20:23)
[2017-08-16] MEDS: LEVALBUTEROL (NEB) 1.25 MG/0.5 ML AMP HHN ×4 (01:12→20:24)
[2017-08-16] MEDS: PIPER-TAZO 3.375 GM IV (PMX) 100 ML IVPB (05:20)
[2017-08-16] MEDS: PANTOPRAZOLE 40 MG INJ IV (05:20)
[2017-08-16] MEDS: DEXTROSE 5%-0.45% NACL 1,000 ML IV ×2 (05:20→20:23)
[2017-08-16] MEDS: predniSONE 2.5 MG TAB NGT ×3 (06:25→13:18)
[2017-08-16 06:34] LABS: ADD MAN DIFF? NO
[2017-08-16 06:48] LABS: WHITE BLOOD COUNT 8.9 10^3/ul (4.8-10.8)
[2017-08-16 06:48] LABS: BASOPHIL # 0.1 10^3/ul (0.0-0.1); BASOPHILS % 0.7 % (0.0-2.0); EOSINOPHILS # 0.1 10^3/ul (0.0-0.5); EOSINOPHILS % 1.6 % (0.0-7.0); HEMATOCRIT 28.8 % (37.0-47.0); HEMOGLOBIN 9.3 g/dl (12.0-16.0); LYMPHOCYTES # 1.3 10^3/ul (0.8-2.9); MEAN CORPUSCULAR HEMOGLOBIN 30.6 pg (29.0-33.0); MEAN CORPUSCULAR HGB CONC 32.3 g/dl (32.0-37.0); MEAN CORPUSCULAR VOLUME 94.7 fl (82.0-101.0); MEAN PLATELET VOLUME 10.4 fl (7.4-10.4); MONOCYTE # 1.2 10^3/ul (0.3-0.9); MONOCYTES % 13.5 % (0.0-11.0); NEUTROPHILS % 68.1 % (39.0-77.0); PLATELET COUNT 157 10^3/UL (140-415); RED BLOOD COUNT 3.04 10^6/ul (4.20-5.40); RED CELL DISTRIBUTION WIDTH 18.7 % (11.5-14.5)
[2017-08-16 06:49] LABS: ALANINE AMINOTRANSFERASE 69 IU/L (13-69); ALBUMIN 2.6 g/dl (3.3-4.9); ALBUMIN/GLOBULIN RATIO 0.76; ALKALINE PHOSPHATASE 174 IU/L (42-121); ANION GAP 5 (8-16); ASPARTATE AMINO TRANSFERASE 70 IU/L (15-46); BILIRUBIN,INDIRECT 1.2 mg/dl (0-1.1); BILIRUBIN,TOTAL 1.2 mg/dl (0.2-1.3); BLOOD UREA NITROGEN 43 mg/dl (7-20); CALCIUM 8.8 mg/dl (8.4-10.2); CARBON DIOXIDE 37 mmol/L (21-31); CHLORIDE 103 mmol/L (97-110); CREATININE 1.17 mg/dl (0.44-1.00); GLUCOSE 233 mg/dl (70-220); MAGNESIUM 1.6 mg/dl (1.7-2.5); POTASSIUM 3.6 mmol/L (3.5-5.1); SODIUM 141 mmol/L (135-144)
[2017-08-16 07:09] LABS: AMMONIA 54 umol/l (9-30)
[2017-08-16 07:23] LABS: LACTIC ACID 2.2 mmol/L (0.5-2.0)
[2017-08-16] MEDS: NYSTATIN/TRIAMCINOLONE 15 GM CR TOP (09:00)
[2017-08-16] MEDS: MEROPENEM 1 GM/50ML(PMX) 50 ML IVPB ×2 (09:34→20:18)
[2017-08-16] MEDS: FLUTICASONE/VILANTEROL 100-25 INH (09:37)
[2017-08-16] MEDS: FUROSEMIDE 20 MG INJ IV (09:37)
[2017-08-16] MEDS: RIFAXIMIN 550 MG TAB PO ×2 (09:38→20:21)
[2017-08-16] MEDS: GABAPENTIN 300 MG CAP NGT ×3 (09:38→20:22)
[2017-08-16] MEDS: METOPROLOL 100 MG TAB NGT ×2 (09:38→20:22)
[2017-08-16] MEDS: TIOTROPIUM 18 MCG CAPSULE INHA DEV INH (09:39)
[2017-08-16] MEDS: MAGNESIUM CITRATE 300 ML BTL NGT (09:40)
[2017-08-16] MEDS: MAGNESIUM SULFATE 2 GM/50 ML 50 ML IVPB (09:53)
[2017-08-16] MEDS: NYSTATIN 30 GM POWDER BTL TOP ×2 (10:08→20:23)
[2017-08-16 11:56] LABS: MITOCHONDRIAL TB NEGATIVE (NEGATIVE)
[2017-08-16 12:42] LABS: MITOCHONDRIAL TB NEGATIVE (NEGATIVE); SMOOTH MUSCLE AB SCREEN NEGATIVE (NEGATIVE)
[2017-08-16] MEDS: HYDROCODONE/APAP (7.5/325) TAB PO (13:17)
[2017-08-16 16:32] LABS: CERULOPLASMIN 30 mg/dL (18-53)
[2017-08-16] MEDS: VANCOMYCIN 1 GM 250 ML IVPB (16:49)
[2017-08-16 18:46] LABS: ANA SCREEN POSITIVE (NEGATIVE)
[2017-08-16 19:26] LABS: ANA PATTERN NUCLEOLAR
[2017-08-16] MEDS: INSULIN GLARGINE [LANtus] 3 ML PEN SC (20:20)
[2017-08-16] MEDS: MONTELUKAST 10 MG TAB PO (20:21)
[2017-08-16] MEDS: PRAMIPEXOLE 0.125 MG TAB PO (20:21)
[2017-08-16] MEDS: RANITIDINE 150 MG TAB PO (20:21)
[2017-08-17] MEDS: Insulin NOVOLOG SS MILD Algorithm (NPO/TPN/ENTERAL FEEDS) SC ×6 (01:00→21:07)
[2017-08-17] MEDS: LEVALBUTEROL (NEB) 1.25 MG/0.5 ML AMP HHN ×4 (01:18→19:35)
[2017-08-17] MEDS: DEXTROSE 5%-0.45% NACL 1,000 ML IV ×2 (04:13→16:26)
[2017-08-17] MEDS: PANTOPRAZOLE 40 MG INJ IV (05:03)
[2017-08-17 05:17] LABS: ADD MAN DIFF? NO
[2017-08-17 05:27] LABS: BASOPHIL # 0.1 10^3/ul (0.0-0.1); BASOPHILS % 0.8 % (0.0-2.0); EOSINOPHILS # 0.4 10^3/ul (0.0-0.5); EOSINOPHILS % 4.4 % (0.0-7.0); HEMATOCRIT 28.1 % (37.0-47.0); LYMPHOCYTES # 1.4 10^3/ul (0.8-2.9); MEAN CORPUSCULAR HEMOGLOBIN 30.4 pg (29.0-33.0); MEAN CORPUSCULAR VOLUME 94.9 fl (82.0-101.0); MEAN PLATELET VOLUME 10.4 fl (7.4-10.4); MONOCYTE # 1.5 10^3/ul (0.3-0.9); MONOCYTES % 18.8 % (0.0-11.0); NEUTROPHIL # 4.6 10^3/ul (1.6-7.5); PLATELET COUNT 147 10^3/UL (140-415); RED BLOOD COUNT 2.96 10^6/ul (4.20-5.40); RED CELL DISTRIBUTION WIDTH 18.1 % (11.5-14.5)
[2017-08-17 05:42] LABS: AMMONIA 45 umol/l (9-30)
[2017-08-17 05:54] LABS: ALANINE AMINOTRANSFERASE 60 IU/L (13-69); ALBUMIN 2.5 g/dl (3.3-4.9); ALBUMIN/GLOBULIN RATIO 0.69; ALKALINE PHOSPHATASE 166 IU/L (42-121); ANION GAP 4 (8-16); ASPARTATE AMINO TRANSFERASE 55 IU/L (15-46); BLOOD UREA NITROGEN 36 mg/dl (7-20); CALCIUM 8.4 mg/dl (8.4-10.2); CARBON DIOXIDE 37 mmol/L (21-31); CHLORIDE 103 mmol/L (97-110); CREATININE 1.23 mg/dl (0.44-1.00); GLUCOSE 153 mg/dl (70-220); MAGNESIUM 2.5 mg/dl (1.7-2.5); POTASSIUM 3.3 mmol/L (3.5-5.1); SODIUM 141 mmol/L (135-144); TOTAL PROTEIN 6.1 g/dl (6.1-8.1)
[2017-08-17] MEDS: predniSONE 2.5 MG TAB NGT ×2 (06:12→13:12)
[2017-08-17] MEDS ORDERED: INSULIN GLARGINE [LANtus] 3 ML PEN SC (08:00)
[2017-08-17] MEDS: MEROPENEM 1 GM/50ML(PMX) 50 ML IVPB ×2 (09:05→20:45)
[2017-08-17] MEDS: RIFAXIMIN 550 MG TAB PO ×2 (09:07→20:46)
[2017-08-17] MEDS: FUROSEMIDE 20 MG INJ IV (09:08)
[2017-08-17] MEDS: GABAPENTIN 300 MG CAP NGT ×3 (09:08→20:46)
[2017-08-17] MEDS: METOPROLOL 100 MG TAB NGT ×2 (09:08→20:47)
[2017-08-17] MEDS: NYSTATIN/TRIAMCINOLONE 15 GM CR TOP (09:20)
[2017-08-17] MEDS: NYSTATIN 30 GM POWDER BTL TOP ×2 (09:20→21:11)
[2017-08-17] MEDS: FLUTICASONE/VILANTEROL 100-25 INH (09:20)
[2017-08-17] MEDS: INSULIN GLARGINE [LANtus] 3 ML PEN SC (09:33)
[2017-08-17] MEDS: TIOTROPIUM 18 MCG CAPSULE INHA DEV INH (11:12)
[2017-08-17] MEDS: VANCOMYCIN 1 GM 250 ML IVPB (17:03)
[2017-08-17] MEDS: RANITIDINE 150 MG TAB PO (20:45)
[2017-08-17] MEDS: PRAMIPEXOLE 0.125 MG TAB PO (20:45)
[2017-08-17] MEDS: MONTELUKAST 10 MG TAB PO (20:45)
[2017-08-17] MEDS: POTASSIUM CHLORIDE 50 ML IVPB (23:17)
[2017-08-18] MEDS: Insulin NOVOLOG SS MILD Algorithm (NPO/TPN/ENTERAL FEEDS) SC ×6 (01:01→23:00)
[2017-08-18] MEDS: POTASSIUM CHLORIDE 50 ML IVPB (01:06)
[2017-08-18] MEDS: LEVALBUTEROL (NEB) 1.25 MG/0.5 ML AMP HHN ×5 (01:11→23:01)
[2017-08-18] MEDS: DEXTROSE 5%-0.45% NACL 1,000 ML IV ×3 (05:01→22:58)
[2017-08-18 05:33] LABS: ADD MAN DIFF? NO
[2017-08-18 05:49] LABS: BASOPHIL # 0.1 10^3/ul (0.0-0.1); BASOPHILS % 0.6 % (0.0-2.0); EOSINOPHILS # 0.3 10^3/ul (0.0-0.5); EOSINOPHILS % 4.2 % (0.0-7.0); HEMATOCRIT 28.8 % (37.0-47.0); HEMOGLOBIN 9.1 g/dl (12.0-16.0); LYMPHOCYTES # 1.7 10^3/ul (0.8-2.9); LYMPHOCYTES % 21.3 % (15.0-51.0); MEAN CORPUSCULAR HGB CONC 31.6 g/dl (32.0-37.0); MEAN PLATELET VOLUME 10.5 fl (7.4-10.4); MONOCYTE # 1.4 10^3/ul (0.3-0.9); MONOCYTES % 17.2 % (0.0-11.0); NEUTROPHIL # 4.5 10^3/ul (1.6-7.5); NEUTROPHILS % 55.8 % (39.0-77.0); PLATELET COUNT 158 10^3/UL (140-415); RED BLOOD COUNT 3.03 10^6/ul (4.20-5.40); RED CELL DISTRIBUTION WIDTH 17.7 % (11.5-14.5)
[2017-08-18 05:59] LABS: ANION GAP 5 (8-16); BLOOD UREA NITROGEN 28 mg/dl (7-20); CALCIUM 8.2 mg/dl (8.4-10.2); CARBON DIOXIDE 35 mmol/L (21-31); CHLORIDE 104 mmol/L (97-110); CREATININE 1.06 mg/dl (0.44-1.00); GLUCOSE 149 mg/dl (70-220); POTASSIUM 3.9 mmol/L (3.5-5.1); SODIUM 140 mmol/L (135-144)
[2017-08-18 06:11] LABS: AMMONIA 27 umol/l (9-30)
[2017-08-18] MEDS: PANTOPRAZOLE 40 MG INJ IV (06:30)
[2017-08-18] MEDS: predniSONE 2.5 MG TAB NGT ×2 (06:35→12:45)
[2017-08-18] MEDS: FLUTICASONE/VILANTEROL 100-25 INH (08:22)
[2017-08-18] MEDS: NYSTATIN/TRIAMCINOLONE 15 GM CR TOP (08:23)
[2017-08-18] MEDS: TIOTROPIUM 18 MCG CAPSULE INHA DEV INH (08:23)
[2017-08-18] MEDS: NYSTATIN 30 GM POWDER BTL TOP ×2 (08:23→22:57)
[2017-08-18] MEDS: GABAPENTIN 300 MG CAP NGT ×3 (08:39→22:56)
[2017-08-18] MEDS: FUROSEMIDE 20 MG INJ IV (08:39)
[2017-08-18] MEDS: METOPROLOL 100 MG TAB NGT ×2 (08:39→23:10)
[2017-08-18] MEDS: INSULIN GLARGINE [LANtus] 3 ML PEN SC (08:42)
[2017-08-18] MEDS: RIFAXIMIN 550 MG TAB PO ×2 (08:42→22:56)
[2017-08-18] MEDS: MEROPENEM 1 GM/50ML(PMX) 50 ML IVPB ×2 (08:44→22:55)
[2017-08-18] MEDS: CEPASTAT LOZENGE MT ×2 (14:14→16:20)
[2017-08-18 15:30] LABS: VANCOMYCIN,TROUGH 18.5 ug/ml (10.0-20.0)
[2017-08-18] MEDS: VANCOMYCIN 1 GM 250 ML IVPB (16:21)
[2017-08-18] MEDS: PRAMIPEXOLE 0.125 MG TAB PO (22:55)
[2017-08-18] MEDS: RANITIDINE 150 MG TAB PO (22:56)
[2017-08-18] MEDS: MONTELUKAST 10 MG TAB PO (22:56)
[2017-08-19] MEDS ORDERED: LEVALBUTEROL (NEB) 1.25 MG/0.5 ML AMP HHN
[2017-08-19] MEDS: Insulin NOVOLOG SS MILD Algorithm (NPO/TPN/ENTERAL FEEDS) SC ×4 (02:09→12:49)
[2017-08-19] MEDS: PANTOPRAZOLE 40 MG INJ IV (06:03)
[2017-08-19] MEDS: CEPASTAT LOZENGE MT (06:27)
[2017-08-19] MEDS: predniSONE 2.5 MG TAB NGT ×2 (06:27→12:34)
[2017-08-19 07:20] LABS: ADD MAN DIFF? NO
[2017-08-19 07:26] LABS: WHITE BLOOD COUNT 9.4 10^3/ul (4.8-10.8)
[2017-08-19 07:26] LABS: BASOPHIL # 0.1 10^3/ul (0.0-0.1); BASOPHILS % 0.6 % (0.0-2.0); EOSINOPHILS # 0.3 10^3/ul (0.0-0.5); EOSINOPHILS % 3.2 % (0.0-7.0); HEMATOCRIT 27.6 % (37.0-47.0); HEMOGLOBIN 8.9 g/dl (12.0-16.0); LYMPHOCYTES # 1.7 10^3/ul (0.8-2.9); LYMPHOCYTES % 18.5 % (15.0-51.0); MEAN CORPUSCULAR HEMOGLOBIN 30.5 pg (29.0-33.0); MEAN CORPUSCULAR HGB CONC 32.2 g/dl (32.0-37.0); MEAN CORPUSCULAR VOLUME 94.5 fl (82.0-101.0); MEAN PLATELET VOLUME 10.5 fl (7.4-10.4); MONOCYTE # 1.4 10^3/ul (0.3-0.9); MONOCYTES % 15.1 % (0.0-11.0); NEUTROPHIL # 5.7 10^3/ul (1.6-7.5); NEUTROPHILS % 61.3 % (39.0-77.0); PLATELET COUNT 156 10^3/UL (140-415); RED BLOOD COUNT 2.92 10^6/ul (4.20-5.40); RED CELL DISTRIBUTION WIDTH 17.2 % (11.5-14.5)
[2017-08-19] MEDS: LEVALBUTEROL (NEB) 1.25 MG/0.5 ML AMP HHN (07:33)
[2017-08-19 07:47] LABS: AMMONIA 19 umol/l (9-30)
[2017-08-19 07:50] LABS: ALANINE AMINOTRANSFERASE 53 IU/L (13-69); ALBUMIN 2.7 g/dl (3.3-4.9); ALBUMIN/GLOBULIN RATIO 0.77; ALKALINE PHOSPHATASE 167 IU/L (42-121); ASPARTATE AMINO TRANSFERASE 43 IU/L (15-46); BILIRUBIN,INDIRECT 0.8 mg/dl (0-1.1); BILIRUBIN,TOTAL 0.8 mg/dl (0.2-1.3); BLOOD UREA NITROGEN 24 mg/dl (7-20); CARBON DIOXIDE 30 mmol/L (21-31); CHLORIDE 101 mmol/L (97-110); CREATININE 1.15 mg/dl (0.44-1.00); GLUCOSE 152 mg/dl (70-220); MAGNESIUM 2.1 mg/dl (1.7-2.5); TOTAL PROTEIN 6.2 g/dl (6.1-8.1)
[2017-08-19 08:05] LABS: ANION GAP 9 (8-16)
[2017-08-19 08:07] LABS: SODIUM 136 mmol/L (135-144)
[2017-08-19] MEDS: TIOTROPIUM 18 MCG CAPSULE INHA DEV INH (09:14)
[2017-08-19] MEDS: RIFAXIMIN 550 MG TAB PO ×2 (09:15→21:26)
[2017-08-19] MEDS: GABAPENTIN 300 MG CAP NGT ×3 (09:15→21:25)
[2017-08-19] MEDS: FLUTICASONE/VILANTEROL 100-25 INH (09:15)
[2017-08-19] MEDS: FUROSEMIDE 20 MG INJ IV (09:17)
[2017-08-19] MEDS: NYSTATIN 30 GM POWDER BTL TOP ×2 (09:17→21:39)
[2017-08-19] MEDS: METOPROLOL 100 MG TAB NGT ×2 (09:17→21:26)
[2017-08-19] MEDS: NYSTATIN/TRIAMCINOLONE 15 GM CR TOP (09:18)
[2017-08-19] MEDS: INSULIN GLARGINE [LANtus] 3 ML PEN SC (09:45)
[2017-08-19] MEDS: MEROPENEM 1 GM/50ML(PMX) 50 ML IVPB ×2 (09:45→21:24)
[2017-08-19] MEDS: DEXTROSE 5%-0.45% NACL 1,000 ML IV (12:40)
[2017-08-19] MEDS: ALBUTEROL 0.083% (NEB) 2.5 MG/3 ML AMP HHN ×2 (16:09→20:51)
[2017-08-19] MEDS: INSULIN ASPART [NOVOLOG] 3 ML PEN SC (17:51)
[2017-08-19] MEDS: RANITIDINE 150 MG TAB PO (21:25)
[2017-08-19] MEDS: MONTELUKAST 10 MG TAB PO (21:25)
[2017-08-19] MEDS: PRAMIPEXOLE 0.125 MG TAB PO (21:25)
[2017-08-19] MEDS: VANCOMYCIN 750 MG in SOD CHLORIDE 0.9% 150 ML IVPB (22:30)
[2017-08-20] MEDS: DEXTROSE 5%-0.45% NACL 1,000 ML IV ×2 (02:00→14:30)
[2017-08-20] MEDS: ACETAMINOPHEN 325 MG TAB PO ×2 (04:56→10:49)
[2017-08-20] MEDS: PANTOPRAZOLE 40 MG INJ IV (06:29)
[2017-08-20 07:09] LABS: ADD MAN DIFF? NO
[2017-08-20 07:13] LABS: WHITE BLOOD COUNT 9.6 10^3/ul (4.8-10.8)
[2017-08-20 07:13] LABS: BASOPHILS % 0.4 % (0.0-2.0); EOSINOPHILS # 0.2 10^3/ul (0.0-0.5); EOSINOPHILS % 2.2 % (0.0-7.0); HEMOGLOBIN 7.4 g/dl (12.0-16.0); LYMPHOCYTES # 1.6 10^3/ul (0.8-2.9); LYMPHOCYTES % 16.3 % (15.0-51.0); MEAN CORPUSCULAR HEMOGLOBIN 30.2 pg (29.0-33.0); MEAN CORPUSCULAR HGB CONC 32.2 g/dl (32.0-37.0); MEAN CORPUSCULAR VOLUME 93.9 fl (82.0-101.0); MEAN PLATELET VOLUME 10.7 fl (7.4-10.4); MONOCYTE # 1.2 10^3/ul (0.3-0.9); MONOCYTES % 12.8 % (0.0-11.0); NEUTROPHIL # 6.4 10^3/ul (1.6-7.5); NEUTROPHILS % 67.4 % (39.0-77.0); PLATELET COUNT 120 10^3/UL (140-415); RED BLOOD COUNT 2.45 10^6/ul (4.20-5.40); RED CELL DISTRIBUTION WIDTH 16.9 % (11.5-14.5)
[2017-08-20 07:32] LABS: ALANINE AMINOTRANSFERASE 50 IU/L (13-69); ALBUMIN 2.2 g/dl (3.3-4.9); ALBUMIN/GLOBULIN RATIO 0.73; ALKALINE PHOSPHATASE 144 IU/L (42-121); ANION GAP 6 (8-16); ASPARTATE AMINO TRANSFERASE 40 IU/L (15-46); BILIRUBIN,INDIRECT 0.5 mg/dl (0-1.1); BILIRUBIN,TOTAL 0.5 mg/dl (0.2-1.3); BLOOD UREA NITROGEN 26 mg/dl (7-20); CALCIUM 7.8 mg/dl (8.4-10.2); CARBON DIOXIDE 30 mmol/L (21-31); CHLORIDE 102 mmol/L (97-110); CREATININE 1.14 mg/dl (0.44-1.00); GLUCOSE 222 mg/dl (70-220); MAGNESIUM 1.8 mg/dl (1.7-2.5); POTASSIUM 3.8 mmol/L (3.5-5.1); SODIUM 134 mmol/L (135-144); TOTAL PROTEIN 5.2 g/dl (6.1-8.1)
[2017-08-20 07:40] LABS: B-TYPE NATRIURETIC PEPTIDE 1780 PG/ML (0-125)
[2017-08-20] MEDS: FUROSEMIDE 20 MG INJ IV ×2 (08:30→08:57)
[2017-08-20] MEDS: DIPHENHYDRAMINE 50 MG INJ IV (08:30)
[2017-08-20] MEDS: predniSONE 2.5 MG TAB NGT ×2 (08:53→12:09)
[2017-08-20] MEDS: METOPROLOL 100 MG TAB NGT ×2 (08:54→20:25)
[2017-08-20] MEDS: L ACIDOPHIL/B LACTIS/B LONGUM CAPSULE PO ×2 (08:54→20:24)
[2017-08-20] MEDS: RIFAXIMIN 550 MG TAB PO ×2 (08:54→20:23)
[2017-08-20] MEDS: GABAPENTIN 300 MG CAP NGT ×3 (08:54→20:23)
[2017-08-20] MEDS: FLUTICASONE/VILANTEROL 100-25 INH (08:55)
[2017-08-20] MEDS: MEROPENEM 1 GM/50ML(PMX) 50 ML IVPB ×2 (08:58→20:28)
[2017-08-20] MEDS: NYSTATIN 30 GM POWDER BTL TOP ×2 (08:58→20:34)
[2017-08-20] MEDS: NYSTATIN/TRIAMCINOLONE 15 GM CR TOP (08:58)
[2017-08-20] MEDS: TIOTROPIUM 18 MCG CAPSULE INHA DEV INH (09:00)
[2017-08-20] MEDS: INSULIN GLARGINE [LANtus] 3 ML PEN SC (09:09)
[2017-08-20] MEDS: INSULIN ASPART [NOVOLOG] 3 ML PEN SC ×3 (09:09→17:59)
[2017-08-20] MEDS: ALBUTEROL 0.083% (NEB) 2.5 MG/3 ML AMP HHN ×4 (09:56→20:35)
[2017-08-20 14:07] LABS: IMMEDIATE SPIN CROSSMATCH 1 2
[2017-08-20] MEDS: RANITIDINE 150 MG TAB PO (20:23)
[2017-08-20] MEDS: PRAMIPEXOLE 0.125 MG TAB PO (20:24)
[2017-08-20] MEDS: MONTELUKAST 10 MG TAB PO (20:25)
[2017-08-21] MEDS: DEXTROSE 5%-0.45% NACL 1,000 ML IV ×3 (03:00→23:43)
[2017-08-21] MEDS: PANTOPRAZOLE 40 MG INJ IV (06:12)
[2017-08-21 06:18] LABS: ADD MAN DIFF? NO
[2017-08-21 06:23] LABS: BASOPHIL # 0.1 10^3/ul (0.0-0.1); BASOPHILS % 0.8 % (0.0-2.0); EOSINOPHILS # 0.3 10^3/ul (0.0-0.5); EOSINOPHILS % 2.6 % (0.0-7.0); HEMATOCRIT 31.1 % (37.0-47.0); HEMOGLOBIN 10.3 g/dl (12.0-16.0); LYMPHOCYTES # 1.3 10^3/ul (0.8-2.9); LYMPHOCYTES % 13.7 % (15.0-51.0); MEAN CORPUSCULAR HEMOGLOBIN 30.2 pg (29.0-33.0); MEAN CORPUSCULAR HGB CONC 33.1 g/dl (32.0-37.0); MEAN CORPUSCULAR VOLUME 91.2 fl (82.0-101.0); MONOCYTE # 1.3 10^3/ul (0.3-0.9); MONOCYTES % 13.5 % (0.0-11.0); NEUTROPHIL # 6.5 10^3/ul (1.6-7.5); NEUTROPHILS % 67.8 % (39.0-77.0); PLATELET COUNT 125 10^3/UL (140-415); RED BLOOD COUNT 3.41 10^6/ul (4.20-5.40); RED CELL DISTRIBUTION WIDTH 16.7 % (11.5-14.5)
[2017-08-21 06:23] LABS: WHITE BLOOD COUNT 9.6 10^3/ul (4.8-10.8)
[2017-08-21 07:00] LABS: ANION GAP 7 (8-16); BLOOD UREA NITROGEN 28 mg/dl (7-20); CALCIUM 8.3 mg/dl (8.4-10.2); CARBON DIOXIDE 28 mmol/L (21-31); CHLORIDE 102 mmol/L (97-110); CREATININE 1.07 mg/dl (0.44-1.00); GLUCOSE 279 mg/dl (70-220); POTASSIUM 3.6 mmol/L (3.5-5.1); SODIUM 133 mmol/L (135-144)
[2017-08-21] MEDS: ALBUTEROL 0.083% (NEB) 2.5 MG/3 ML AMP HHN ×5 (08:36→20:00)
[2017-08-21] MEDS: predniSONE 2.5 MG TAB NGT ×2 (08:54→12:39)
[2017-08-21] MEDS: GABAPENTIN 300 MG CAP NGT ×3 (08:56→20:51)
[2017-08-21] MEDS: FLUCONAZOLE 100 MG TAB PO (08:56)
[2017-08-21] MEDS: RIFAXIMIN 550 MG TAB PO ×2 (08:56→20:52)
[2017-08-21] MEDS: METOPROLOL 100 MG TAB NGT ×2 (08:57→20:51)
[2017-08-21] MEDS: L ACIDOPHIL/B LACTIS/B LONGUM CAPSULE PO ×2 (08:58→20:52)
[2017-08-21] MEDS: NYSTATIN 30 GM POWDER BTL TOP ×2 (08:59→20:54)
[2017-08-21] MEDS: TIOTROPIUM 18 MCG CAPSULE INHA DEV INH (09:00)
[2017-08-21] MEDS: FLUTICASONE/VILANTEROL 100-25 INH (09:00)
[2017-08-21] MEDS: FUROSEMIDE 20 MG INJ IV ×2 (09:01)
[2017-08-21] MEDS: INSULIN ASPART [NOVOLOG] 3 ML PEN SC ×3 (09:13→18:09)
[2017-08-21] MEDS: INSULIN GLARGINE [LANtus] 3 ML PEN SC (09:13)
[2017-08-21] MEDS: MEROPENEM 1 GM/50ML(PMX) 50 ML IVPB ×2 (09:56→20:53)
[2017-08-21] MEDS: NYSTATIN/TRIAMCINOLONE 15 GM CR TOP (09:57)
[2017-08-21] MEDS: PRAMIPEXOLE 0.125 MG TAB PO (20:52)
[2017-08-21] MEDS: MONTELUKAST 10 MG TAB PO (20:52)
[2017-08-21] MEDS: RANITIDINE 150 MG TAB PO (20:53)
[2017-08-22] MEDS: ACETAMINOPHEN 325 MG TAB PO (03:19)
[2017-08-22] MEDS: DEXTROSE 5%-0.45% NACL 1,000 ML IV (04:00)
[2017-08-22] MEDS: PANTOPRAZOLE 40 MG INJ IV (06:44)
[2017-08-22 07:03] LABS: ADD MAN DIFF? NO
[2017-08-22 07:17] LABS: WHITE BLOOD COUNT 11.7 10^3/ul (4.8-10.8)
[2017-08-22 07:17] LABS: ABNORMAL IP MESSAGE 1; BASOPHIL # 0.1 10^3/ul (0.0-0.1); BASOPHILS % 0.5 % (0.0-2.0); EOSINOPHILS # 0.2 10^3/ul (0.0-0.5); EOSINOPHILS % 1.7 % (0.0-7.0); HEMATOCRIT 27.6 % (37.0-47.0); HEMOGLOBIN 9.3 g/dl (12.0-16.0); LYMPHOCYTES # 1.6 10^3/ul (0.8-2.9); LYMPHOCYTES % 13.6 % (15.0-51.0); MEAN CORPUSCULAR HEMOGLOBIN 30.9 pg (29.0-33.0); MEAN CORPUSCULAR HGB CONC 33.7 g/dl (32.0-37.0); MEAN CORPUSCULAR VOLUME 91.7 fl (82.0-101.0); MEAN PLATELET VOLUME 10.8 fl (7.4-10.4); MONOCYTE # 1.6 10^3/ul (0.3-0.9); MONOCYTES % 13.6 % (0.0-11.0); NEUTROPHIL # 8.1 10^3/ul (1.6-7.5); NEUTROPHILS % 69.5 % (39.0-77.0); PLATELET COUNT 126 10^3/UL (140-415); RED BLOOD COUNT 3.01 10^6/ul (4.20-5.40); RED CELL DISTRIBUTION WIDTH 16.4 % (11.5-14.5)
[2017-08-22 07:21] LABS: POSITIVE DIFF @See below
[2017-08-22 07:29] LABS: ALANINE AMINOTRANSFERASE 47 IU/L (13-69); ALBUMIN 2.6 g/dl (3.3-4.9); ALBUMIN/GLOBULIN RATIO 0.74; ALKALINE PHOSPHATASE 181 IU/L (42-121); ANION GAP 12 (8-16); ASPARTATE AMINO TRANSFERASE 44 IU/L (15-46); BILIRUBIN,INDIRECT 0.5 mg/dl (0-1.1); BILIRUBIN,TOTAL 0.5 mg/dl (0.2-1.3); BLOOD UREA NITROGEN 30 mg/dl (7-20); CALCIUM 8.4 mg/dl (8.4-10.2); CARBON DIOXIDE 26 mmol/L (21-31); CHLORIDE 101 mmol/L (97-110); CREATININE 1.05 mg/dl (0.44-1.00); GLUCOSE 346 mg/dl (70-220); POTASSIUM 3.7 mmol/L (3.5-5.1); SODIUM 135 mmol/L (135-144); TOTAL PROTEIN 6.1 g/dl (6.1-8.1)
[2017-08-22] MEDS: INSULIN ASPART [NOVOLOG] 3 ML PEN SC ×5 (08:08→22:03)
[2017-08-22] MEDS: INSULIN GLARGINE [LANtus] 3 ML PEN SC ×2 (08:08→12:52)
[2017-08-22] MEDS: ALBUTEROL 0.083% (NEB) 2.5 MG/3 ML AMP HHN ×4 (08:24→21:05)
[2017-08-22] MEDS: predniSONE 2.5 MG TAB NGT ×2 (09:01→16:47)
[2017-08-22] MEDS: FLUCONAZOLE 100 MG TAB PO (09:02)
[2017-08-22] MEDS: GABAPENTIN 300 MG CAP NGT ×3 (09:02→20:38)
[2017-08-22] MEDS: L ACIDOPHIL/B LACTIS/B LONGUM CAPSULE PO ×2 (09:02→20:36)
[2017-08-22] MEDS: RIFAXIMIN 550 MG TAB PO ×2 (09:02→20:36)
[2017-08-22] MEDS: TIOTROPIUM 18 MCG CAPSULE INHA DEV INH (09:03)
[2017-08-22] MEDS: METOPROLOL 100 MG TAB NGT ×2 (09:05→20:38)
[2017-08-22] MEDS: FUROSEMIDE 20 MG INJ IV (09:06)
[2017-08-22] MEDS: FLUTICASONE/VILANTEROL 100-25 INH (09:06)
[2017-08-22] MEDS: NYSTATIN 30 GM POWDER BTL TOP ×2 (09:07→22:00)
[2017-08-22] MEDS: NYSTATIN/TRIAMCINOLONE 15 GM CR TOP (09:13)
[2017-08-22] MEDS: SOD CHLORIDE 0.45% 1,000 ML IV ×2 (09:17→20:35)
[2017-08-22] MEDS: MEROPENEM 1 GM/50ML(PMX) 50 ML IVPB ×2 (09:17→20:52)
[2017-08-22] MEDS: SUCRALFATE 1 GM TAB PO ×3 (12:46→20:35)
[2017-08-22] MEDS: ACCU-CHEK XX (20:35)
[2017-08-22] MEDS: MONTELUKAST 10 MG TAB PO (20:36)
[2017-08-22] MEDS: PRAMIPEXOLE 0.125 MG TAB PO (20:36)
[2017-08-22] MEDS: FLUTICASONE 0.05% 16 GM NAS SPRAY NASAL (20:39)
[2017-08-22] MEDS: RANITIDINE 150 MG TAB PO (20:57)
[2017-08-23] MEDS: ACCU-CHEK XX ×4 (02:33→20:35)
[2017-08-23] MEDS: PANTOPRAZOLE 40 MG INJ IV (06:22)
[2017-08-23] MEDS: SOD CHLORIDE 0.45% 1,000 ML IV ×3 (06:24→23:00)
[2017-08-23 07:22] LABS: ADD MAN DIFF? NO
[2017-08-23] MEDS: SUCRALFATE 1 GM TAB PO ×4 (07:25→21:52)
[2017-08-23] MEDS: predniSONE 2.5 MG TAB NGT ×2 (07:25→17:50)
[2017-08-23 07:42] LABS: ABNORMAL IP MESSAGE 1; BASOPHIL # 0.1 10^3/ul (0.0-0.1); BASOPHILS % 0.8 % (0.0-2.0); EOSINOPHILS # 0.2 10^3/ul (0.0-0.5); EOSINOPHILS % 1.4 % (0.0-7.0); HEMATOCRIT 31.2 % (37.0-47.0); HEMOGLOBIN 10.4 g/dl (12.0-16.0); MEAN CORPUSCULAR HEMOGLOBIN 30.3 pg (29.0-33.0); MEAN CORPUSCULAR HGB CONC 33.3 g/dl (32.0-37.0); MEAN PLATELET VOLUME 10.7 fl (7.4-10.4); MONOCYTE # 2.6 10^3/ul (0.3-0.9); NEUTROPHIL # 10.4 10^3/ul (1.6-7.5); NEUTROPHILS % 66.4 % (39.0-77.0); NUCLEATED RED BLOOD CELLS% 0.2 /100WBC (0.0-0.0); PLATELET COUNT 181 10^3/UL (140-415); RED BLOOD COUNT 3.43 10^6/ul (4.20-5.40); RED CELL DISTRIBUTION WIDTH 16.2 % (11.5-14.5)
[2017-08-23 07:42] LABS: WHITE BLOOD COUNT 15.6 10^3/ul (4.8-10.8)
[2017-08-23 07:48] LABS: POSITIVE DIFF @See below
[2017-08-23 08:01] LABS: ALANINE AMINOTRANSFERASE 54 IU/L (13-69); ALKALINE PHOSPHATASE 212 IU/L (42-121); ANION GAP 8 (8-16); ASPARTATE AMINO TRANSFERASE 56 IU/L (15-46); BILIRUBIN,INDIRECT 0.6 mg/dl (0-1.1); BILIRUBIN,TOTAL 0.6 mg/dl (0.2-1.3); BLOOD UREA NITROGEN 33 mg/dl (7-20); CALCIUM 8.8 mg/dl (8.4-10.2); CARBON DIOXIDE 28 mmol/L (21-31); CHLORIDE 101 mmol/L (97-110); CREATININE 0.93 mg/dl (0.44-1.00); GLUCOSE 208 mg/dl (70-220); POTASSIUM 3.9 mmol/L (3.5-5.1); SODIUM 133 mmol/L (135-144); TOTAL PROTEIN 6.6 g/dl (6.1-8.1)
[2017-08-23 08:02] LABS: ALBUMIN 2.8 g/dl (3.3-4.9); ALBUMIN/GLOBULIN RATIO 0.73
[2017-08-23] MEDS: FLUCONAZOLE 100 MG TAB PO (08:28)
[2017-08-23] MEDS: GABAPENTIN 300 MG CAP NGT ×3 (08:28→21:48)
[2017-08-23] MEDS: L ACIDOPHIL/B LACTIS/B LONGUM CAPSULE PO ×2 (08:29→21:45)
[2017-08-23] MEDS: FLUTICASONE 0.05% 16 GM NAS SPRAY NASAL ×2 (08:30→22:13)
[2017-08-23] MEDS: ALBUTEROL 0.083% (NEB) 2.5 MG/3 ML AMP HHN ×4 (08:30→21:55)
[2017-08-23] MEDS: NYSTATIN 30 GM POWDER BTL TOP ×2 (08:30→22:18)
[2017-08-23] MEDS: FLUTICASONE/VILANTEROL 100-25 INH (08:31)
[2017-08-23] MEDS: FUROSEMIDE 20 MG INJ IV (08:33)
[2017-08-23] MEDS: INSULIN ASPART [NOVOLOG] 3 ML PEN SC ×7 (08:58→22:16)
[2017-08-23] MEDS: INSULIN GLARGINE [LANtus] 3 ML PEN SC (08:58)
[2017-08-23] MEDS: MEROPENEM 1 GM/50ML(PMX) 50 ML IVPB ×2 (09:18→22:58)
[2017-08-23] MEDS: METOPROLOL 100 MG TAB NGT ×2 (09:19→21:50)
[2017-08-23] MEDS: RIFAXIMIN 550 MG TAB PO ×2 (09:20→21:49)
[2017-08-23] MEDS: NYSTATIN/TRIAMCINOLONE 15 GM CR TOP (09:21)
[2017-08-23] MEDS: TIOTROPIUM 18 MCG CAPSULE INHA DEV INH (11:57)
[2017-08-23 13:41] LABS: ADD UMIC YES; UR ASCORBIC ACID NEGATIVE (NEGATIVE); UR BACTERIA FEW /HPF (NONE SEEN); UR BILIRUBIN (Dip) NEGATIVE (NEGATIVE); UR BLOOD (Dip) 3+ mg/dL (NEGATIVE); UR CLARITY CLEAR (CLEAR); UR COLOR YELLOW (YELLOW); UR GLUCOSE (Dip) 3+ mg/dL (NEGATIVE); UR KETONES (Dip) NEGATIVE (NEGATIVE); UR LEUKOCYTE ESTERASE (Dip) NEGATIVE Leu/ul (NEGATIVE); UR NITRITE (Dip) NEGATIVE (NEGATIVE); UR RBC 35 /HPF (0-5); UR SPECIFIC GRAVITY (Dip) 1.009 (1.003-1.030); UR TOTAL PROTEIN (Dip) 2+ mg/dl (NEGATIVE); UR UROBILINOGEN (Dip) NEGATIVE (NEGATIVE); UR WBC 8 /HPF (0-5)
[2017-08-23] MEDS: ACETAMINOPHEN 325 MG TAB PO (16:34)
[2017-08-23] MEDS: PRAMIPEXOLE 0.125 MG TAB PO (21:45)
[2017-08-23] MEDS: MONTELUKAST 10 MG TAB PO (21:48)
[2017-08-23] MEDS: RANITIDINE 150 MG TAB PO (21:52)
[2017-08-24] MEDS: ACCU-CHEK XX ×4 (01:50→21:03)
[2017-08-24] MEDS: ACETAMINOPHEN 325 MG TAB PO (03:42)
[2017-08-24 05:10] LABS: ADD MAN DIFF? NO
[2017-08-24 05:31] LABS: ABNORMAL IP MESSAGE 1; BASOPHIL # 0.1 10^3/ul (0.0-0.1); BASOPHILS % 0.8 % (0.0-2.0); EOSINOPHILS # 0.2 10^3/ul (0.0-0.5); EOSINOPHILS % 1.9 % (0.0-7.0); HEMATOCRIT 30.5 % (37.0-47.0); HEMOGLOBIN 10.1 g/dl (12.0-16.0); LYMPHOCYTES # 2.1 10^3/ul (0.8-2.9); MEAN CORPUSCULAR HEMOGLOBIN 30.2 pg (29.0-33.0); MEAN CORPUSCULAR HGB CONC 33.1 g/dl (32.0-37.0); MEAN CORPUSCULAR VOLUME 91.3 fl (82.0-101.0); MEAN PLATELET VOLUME 10.4 fl (7.4-10.4); MONOCYTE # 2.3 10^3/ul (0.3-0.9); NEUTROPHIL # 7.6 10^3/ul (1.6-7.5); PLATELET COUNT 178 10^3/UL (140-415); RED BLOOD COUNT 3.34 10^6/ul (4.20-5.40); RED CELL DISTRIBUTION WIDTH 16.7 % (11.5-14.5)
[2017-08-24 05:31] LABS: WHITE BLOOD COUNT 12.4 10^3/ul (4.8-10.8)
[2017-08-24 05:37] LABS: B-TYPE NATRIURETIC PEPTIDE 2250 PG/ML (0-125)
[2017-08-24 05:48] LABS: ALANINE AMINOTRANSFERASE 50 IU/L (13-69); ALBUMIN 2.8 g/dl (3.3-4.9); ALBUMIN/GLOBULIN RATIO 0.71; ALKALINE PHOSPHATASE 208 IU/L (42-121); ANION GAP 10 (8-16); ASPARTATE AMINO TRANSFERASE 54 IU/L (15-46); BILIRUBIN,INDIRECT 0.7 mg/dl (0-1.1); BILIRUBIN,TOTAL 0.7 mg/dl (0.2-1.3); BLOOD UREA NITROGEN 39 mg/dl (7-20); CARBON DIOXIDE 28 mmol/L (21-31); CHLORIDE 102 mmol/L (97-110); GLUCOSE 184 mg/dl (70-220); MAGNESIUM 1.5 mg/dl (1.7-2.5); POTASSIUM 4.1 mmol/L (3.5-5.1); SODIUM 136 mmol/L (135-144); TOTAL PROTEIN 6.7 g/dl (6.1-8.1)
[2017-08-24 06:12] LABS: MONOCYTES % 18.2 % (0.0-11.0); POSITIVE DIFF @See below
[2017-08-24] MEDS: PANTOPRAZOLE 40 MG INJ IV (07:51)
[2017-08-24] MEDS: INSULIN ASPART [NOVOLOG] 3 ML PEN SC ×7 (07:55→21:29)
[2017-08-24] MEDS: predniSONE 2.5 MG TAB NGT ×2 (07:57→17:17)
[2017-08-24] MEDS: SUCRALFATE 1 GM TAB PO ×4 (07:57→21:25)
[2017-08-24] MEDS: INSULIN GLARGINE [LANtus] 3 ML PEN SC (08:03)
[2017-08-24] MEDS: L ACIDOPHIL/B LACTIS/B LONGUM CAPSULE PO ×2 (08:30→21:23)
[2017-08-24] MEDS: ALBUTEROL 0.083% (NEB) 2.5 MG/3 ML AMP HHN ×4 (08:30→21:32)
[2017-08-24] MEDS: METOPROLOL 100 MG TAB NGT ×2 (08:31→21:26)
[2017-08-24] MEDS: RIFAXIMIN 550 MG TAB PO ×2 (08:31→21:27)
[2017-08-24] MEDS: FLUCONAZOLE 100 MG TAB PO (08:31)
[2017-08-24] MEDS: FUROSEMIDE 20 MG INJ IV (08:32)
[2017-08-24] MEDS: GABAPENTIN 300 MG CAP NGT ×3 (08:32→21:25)
[2017-08-24] MEDS: TIOTROPIUM 18 MCG CAPSULE INHA DEV INH (08:33)
[2017-08-24] MEDS: FLUTICASONE/VILANTEROL 100-25 INH (08:34)
[2017-08-24] MEDS: FLUTICASONE 0.05% 16 GM NAS SPRAY NASAL ×2 (08:34→22:51)
[2017-08-24] MEDS: MEROPENEM 1 GM/50ML(PMX) 50 ML IVPB (08:38)
[2017-08-24] MEDS: NYSTATIN 30 GM POWDER BTL TOP ×2 (08:38→21:27)
[2017-08-24] MEDS: NYSTATIN/TRIAMCINOLONE 15 GM CR TOP (08:44)
[2017-08-24] MEDS: MAGNESIUM CHLORIDE (SR) 64 MG TAB PO ×2 (09:00→14:27)
[2017-08-24] MEDS: RANITIDINE 150 MG TAB PO (21:23)
[2017-08-24] MEDS: IBUPROFEN 400 MG TAB PO (21:24)
[2017-08-24] MEDS: PRAMIPEXOLE 0.125 MG TAB PO (21:26)
[2017-08-24] MEDS: MONTELUKAST 10 MG TAB PO (21:27)
[2017-08-25] MEDS: ACETAMINOPHEN 325 MG TAB PO (01:38)
[2017-08-25] MEDS: ACCU-CHEK XX ×4 (02:16→20:53)
[2017-08-25] MEDS: PANTOPRAZOLE 40 MG INJ IV (06:08)
[2017-08-25] MEDS: IBUPROFEN 400 MG TAB PO (06:09)
[2017-08-25] MEDS: predniSONE 2.5 MG TAB NGT ×2 (06:09→17:30)
[2017-08-25] MEDS: SUCRALFATE 1 GM TAB PO ×4 (06:16→21:33)
[2017-08-25 06:50] LABS: ADD MAN DIFF? NO
[2017-08-25 06:51] LABS: ABNORMAL IP MESSAGE 1; BASOPHIL # 0.1 10^3/ul (0.0-0.1); BASOPHILS % 0.7 % (0.0-2.0); EOSINOPHILS # 0.2 10^3/ul (0.0-0.5); EOSINOPHILS % 1.5 % (0.0-7.0); HEMATOCRIT 29.5 % (37.0-47.0); HEMOGLOBIN 9.7 g/dl (12.0-16.0); LYMPHOCYTES # 1.8 10^3/ul (0.8-2.9); LYMPHOCYTES % 14.9 % (15.0-51.0); MEAN CORPUSCULAR HEMOGLOBIN 30.1 pg (29.0-33.0); MEAN CORPUSCULAR HGB CONC 32.9 g/dl (32.0-37.0); MEAN CORPUSCULAR VOLUME 91.6 fl (82.0-101.0); MEAN PLATELET VOLUME 10.5 fl (7.4-10.4); MONOCYTE # 2.3 10^3/ul (0.3-0.9); MONOCYTES % 19.3 % (0.0-11.0); NEUTROPHIL # 7.4 10^3/ul (1.6-7.5); PLATELET COUNT 181 10^3/UL (140-415); RED BLOOD COUNT 3.22 10^6/ul (4.20-5.40); RED CELL DISTRIBUTION WIDTH 16.4 % (11.5-14.5)
[2017-08-25 07:12] LABS: POSITIVE DIFF @See below
[2017-08-25 07:29] LABS: ANION GAP 12 (8-16); BLOOD UREA NITROGEN 44 mg/dl (7-20); CARBON DIOXIDE 27 mmol/L (21-31); CHLORIDE 103 mmol/L (97-110); CREATININE 1.25 mg/dl (0.44-1.00); GLUCOSE 223 mg/dl (70-220); POTASSIUM 3.9 mmol/L (3.5-5.1); SODIUM 138 mmol/L (135-144)
[2017-08-25] MEDS: INSULIN ASPART [NOVOLOG] 3 ML PEN SC ×7 (08:00→21:37)
[2017-08-25] MEDS: INSULIN GLARGINE [LANtus] 3 ML PEN SC (08:00)
[2017-08-25] MEDS: FUROSEMIDE 20 MG INJ IV (08:25)
[2017-08-25] MEDS: TIOTROPIUM 18 MCG CAPSULE INHA DEV INH (08:25)
[2017-08-25] MEDS: RIFAXIMIN 550 MG TAB PO ×2 (08:26→21:32)
[2017-08-25] MEDS: GABAPENTIN 300 MG CAP NGT ×3 (08:26→21:33)
[2017-08-25] MEDS: MAGNESIUM CHLORIDE (SR) 64 MG TAB PO (08:26)
[2017-08-25] MEDS: L ACIDOPHIL/B LACTIS/B LONGUM CAPSULE PO ×2 (08:26→21:32)
[2017-08-25] MEDS: FLUCONAZOLE 100 MG TAB PO (08:27)
[2017-08-25] MEDS: NYSTATIN/TRIAMCINOLONE 15 GM CR TOP (08:28)
[2017-08-25] MEDS: NYSTATIN 30 GM POWDER BTL TOP ×2 (08:28→21:00)
[2017-08-25] MEDS: FLUTICASONE/VILANTEROL 100-25 INH (08:29)
[2017-08-25] MEDS: FLUTICASONE 0.05% 16 GM NAS SPRAY NASAL ×2 (08:29→21:31)
[2017-08-25] MEDS: METOPROLOL 100 MG TAB NGT ×2 (08:30→21:33)
[2017-08-25] MEDS: ALBUTEROL 0.083% (NEB) 2.5 MG/3 ML AMP HHN ×4 (09:41→22:10)
[2017-08-25] MEDS: PRAMIPEXOLE 0.125 MG TAB PO (21:32)
[2017-08-25] MEDS: RANITIDINE 150 MG TAB PO (21:32)
[2017-08-25] MEDS: MONTELUKAST 10 MG TAB PO (21:33)
[2017-08-26] MEDS: ACCU-CHEK XX ×3 (02:50→14:12)
[2017-08-26] MEDS: PANTOPRAZOLE 40 MG INJ IV (05:57)
[2017-08-26 06:19] LABS: ADD MAN DIFF? NO
[2017-08-26 06:30] LABS: ABNORMAL IP MESSAGE 1; BASOPHIL # 0.1 10^3/ul (0.0-0.1); EOSINOPHILS # 0.2 10^3/ul (0.0-0.5); EOSINOPHILS % 2.1 % (0.0-7.0); HEMATOCRIT 31.7 % (37.0-47.0); HEMOGLOBIN 10.3 g/dl (12.0-16.0); LYMPHOCYTES # 1.3 10^3/ul (0.8-2.9); LYMPHOCYTES % 11.1 % (15.0-51.0); MEAN CORPUSCULAR HEMOGLOBIN 30.2 pg (29.0-33.0); MEAN CORPUSCULAR HGB CONC 32.5 g/dl (32.0-37.0); MEAN PLATELET VOLUME 10.4 fl (7.4-10.4); MONOCYTE # 1.9 10^3/ul (0.3-0.9); MONOCYTES % 16.3 % (0.0-11.0); NEUTROPHILS % 68.3 % (39.0-77.0); PLATELET COUNT 205 10^3/UL (140-415); RED BLOOD COUNT 3.41 10^6/ul (4.20-5.40); RED CELL DISTRIBUTION WIDTH 16.6 % (11.5-14.5)
[2017-08-26 06:30] LABS: WHITE BLOOD COUNT 11.7 10^3/ul (4.8-10.8)
[2017-08-26 06:47] LABS: POSITIVE DIFF @See below
[2017-08-26 06:53] LABS: ALANINE AMINOTRANSFERASE 55 IU/L (13-69); ALBUMIN 2.9 g/dl (3.3-4.9); ALKALINE PHOSPHATASE 256 IU/L (42-121); ANION GAP 13 (8-16); ASPARTATE AMINO TRANSFERASE 68 IU/L (15-46); BILIRUBIN,INDIRECT 0.5 mg/dl (0-1.1); BILIRUBIN,TOTAL 0.5 mg/dl (0.2-1.3); BLOOD UREA NITROGEN 51 mg/dl (7-20); CALCIUM 9.3 mg/dl (8.4-10.2); CARBON DIOXIDE 26 mmol/L (21-31); CHLORIDE 103 mmol/L (97-110); CREATININE 1.32 mg/dl (0.44-1.00); GLUCOSE 263 mg/dl (70-220); POTASSIUM 4.1 mmol/L (3.5-5.1); SODIUM 138 mmol/L (135-144)
[2017-08-26] MEDS: INSULIN ASPART [NOVOLOG] 3 ML PEN SC ×7 (08:48→21:50)
[2017-08-26] MEDS: INSULIN GLARGINE [LANtus] 3 ML PEN SC (08:48)
[2017-08-26] MEDS: ALBUTEROL 0.083% (NEB) 2.5 MG/3 ML AMP HHN ×4 (08:50→21:48)
[2017-08-26] MEDS: MAGNESIUM CHLORIDE (SR) 64 MG TAB PO (09:19)
[2017-08-26] MEDS: FUROSEMIDE 20 MG INJ IV (09:19)
[2017-08-26] MEDS: TIOTROPIUM 18 MCG CAPSULE INHA DEV INH (09:19)
[2017-08-26] MEDS: RIFAXIMIN 550 MG TAB PO ×2 (09:20→21:45)
[2017-08-26] MEDS: METOPROLOL 100 MG TAB NGT ×2 (09:20→21:47)
[2017-08-26] MEDS: NYSTATIN/TRIAMCINOLONE 15 GM CR TOP (09:22)
[2017-08-26] MEDS: FLUTICASONE 0.05% 16 GM NAS SPRAY NASAL ×2 (09:22→21:44)
[2017-08-26] MEDS: SUCRALFATE 1 GM TAB PO ×4 (09:22→21:45)
[2017-08-26] MEDS: FLUTICASONE/VILANTEROL 100-25 INH (09:22)
[2017-08-26] MEDS: GABAPENTIN 300 MG CAP NGT ×3 (09:22→21:46)
[2017-08-26] MEDS: predniSONE 2.5 MG TAB NGT ×2 (09:22→17:07)
[2017-08-26] MEDS: NYSTATIN 30 GM POWDER BTL TOP ×2 (09:22→21:44)
[2017-08-26] MEDS: L ACIDOPHIL/B LACTIS/B LONGUM CAPSULE PO ×2 (09:23→21:43)
[2017-08-26] MEDS: METHYLPREDNISOLONE 40 MG INJ IV ×2 (14:22→22:38)
[2017-08-26] MEDS: IBUPROFEN 400 MG TAB PO (15:01)
[2017-08-26] MEDS ORDERED: FUROSEMIDE 40 MG INJ (16:59)
[2017-08-26] MEDS: FUROSEMIDE 40 MG INJ IV (17:06)
[2017-08-26] MEDS: PRAMIPEXOLE 0.125 MG TAB PO (21:42)
[2017-08-26] MEDS: RANITIDINE 150 MG TAB PO (21:45)
[2017-08-26] MEDS: MONTELUKAST 10 MG TAB PO (21:45)
[2017-08-26] MEDS: hydrALAzine 20 MG INJ IV (21:47)
[2017-08-26] MEDS: NPH, HUMAN INSULIN ISOPHANE 3ML VIAL SC (22:53)
[2017-08-26] MEDS: INSULIN REGULAR, HUMAN 100 UNIT/1 ML 3ML VIAL IV (22:53)
[2017-08-27] MEDS ORDERED: INSULIN REGULAR, HUMAN 100 UNIT/1 ML 3ML VIAL IV (00:15)
[2017-08-27] MEDS: INSULIN ASPART [NOVOLOG] 3 ML PEN SC ×10 (01:54→21:38)
[2017-08-27] MEDS: hydrALAzine 20 MG INJ IV ×3 (02:04→18:58)
[2017-08-27] MEDS: INSULIN REGULAR, HUMAN 100 UNIT/1 ML 3ML VIAL SC (03:14)
[2017-08-27] MEDS: METHYLPREDNISOLONE 40 MG INJ IV ×3 (06:23→21:20)
[2017-08-27] MEDS: PANTOPRAZOLE 40 MG INJ IV (06:23)
[2017-08-27] MEDS: FUROSEMIDE 40 MG INJ IV ×2 (06:23→17:38)
[2017-08-27] MEDS: NPH, HUMAN INSULIN ISOPHANE 3ML VIAL SC ×3 (06:42→21:38)
[2017-08-27 07:53] LABS: ADD MAN DIFF? NO
[2017-08-27 08:01] LABS: WHITE BLOOD COUNT 9.9 10^3/ul (4.8-10.8)
[2017-08-27 08:01] LABS: BASOPHILS % 0.2 % (0.0-2.0); HEMATOCRIT 31.7 % (37.0-47.0); HEMOGLOBIN 10.5 g/dl (12.0-16.0); LYMPHOCYTES # 1.3 10^3/ul (0.8-2.9); LYMPHOCYTES % 13.5 % (15.0-51.0); MEAN CORPUSCULAR HEMOGLOBIN 30.3 pg (29.0-33.0); MEAN CORPUSCULAR HGB CONC 33.1 g/dl (32.0-37.0); MEAN CORPUSCULAR VOLUME 91.4 fl (82.0-101.0); MEAN PLATELET VOLUME 10.2 fl (7.4-10.4); MONOCYTE # 0.4 10^3/ul (0.3-0.9); MONOCYTES % 4.1 % (0.0-11.0); NEUTROPHILS % 80.6 % (39.0-77.0); NUCLEATED RED BLOOD CELLS% 0.2 /100WBC (0.0-0.0); PLATELET COUNT 218 10^3/UL (140-415); RED BLOOD COUNT 3.47 10^6/ul (4.20-5.40); RED CELL DISTRIBUTION WIDTH 16.1 % (11.5-14.5)
[2017-08-27 08:17] LABS: ALANINE AMINOTRANSFERASE 62 IU/L (13-69); ALBUMIN 3.1 g/dl (3.3-4.9); ALBUMIN/GLOBULIN RATIO 0.86; ALKALINE PHOSPHATASE 254 IU/L (42-121); ANION GAP 15 (8-16); ASPARTATE AMINO TRANSFERASE 65 IU/L (15-46); BILIRUBIN,INDIRECT 0.3 mg/dl (0-1.1); BILIRUBIN,TOTAL 0.3 mg/dl (0.2-1.3); BLOOD UREA NITROGEN 60 mg/dl (7-20); CALCIUM 9.5 mg/dl (8.4-10.2); CARBON DIOXIDE 31 mmol/L (21-31); CHLORIDE 98 mmol/L (97-110); CREATININE 1.09 mg/dl (0.44-1.00); GLUCOSE 285 mg/dl (70-220); MAGNESIUM 1.7 mg/dl (1.7-2.5); POTASSIUM 4.2 mmol/L (3.5-5.1); SODIUM 140 mmol/L (135-144); TOTAL PROTEIN 6.7 g/dl (6.1-8.1)
[2017-08-27] MEDS: INSULIN GLARGINE [LANtus] 3 ML PEN SC (08:18)
[2017-08-27] MEDS: TIOTROPIUM 18 MCG CAPSULE INHA DEV INH (08:21)
[2017-08-27] MEDS: RIFAXIMIN 550 MG TAB PO ×2 (08:22→21:22)
[2017-08-27] MEDS: SUCRALFATE 1 GM TAB PO ×4 (08:22→21:22)
[2017-08-27] MEDS: NYSTATIN 30 GM POWDER BTL TOP ×2 (08:22→21:38)
[2017-08-27] MEDS: FLUTICASONE 0.05% 16 GM NAS SPRAY NASAL ×2 (08:23→21:15)
[2017-08-27] MEDS: FLUTICASONE/VILANTEROL 100-25 INH (08:23)
[2017-08-27 08:24] LABS: B-TYPE NATRIURETIC PEPTIDE 3900 PG/ML (0-125)
[2017-08-27] MEDS: GABAPENTIN 300 MG CAP NGT ×3 (08:24→21:20)
[2017-08-27] MEDS: MAGNESIUM CHLORIDE (SR) 64 MG TAB PO (08:27)
[2017-08-27] MEDS: L ACIDOPHIL/B LACTIS/B LONGUM CAPSULE PO ×2 (08:27→21:22)
[2017-08-27] MEDS: METOPROLOL 100 MG TAB NGT ×2 (08:28→21:21)
[2017-08-27] MEDS: NYSTATIN/TRIAMCINOLONE 15 GM CR TOP (08:31)
[2017-08-27 09:14] LABS: AADO2 Arterial 48.6 mmHg (7.0-24.0); Allen Test ACCEPTAB; Arterial Base Excess 3.2 mmol/L (-3.0-3); Arterial Blood Gas Oxygen Sat 92.7 mmHG (95.0-100.0); Arterial COHb 0.3 % (0.0-3.0); Arterial Fraction of Oxyhgb 92.1 % (93.0-99.0); Arterial HCO3 28.6 mmol/L (22.0-26.0); Arterial MetHb 0.3 % (0.0-1.5); Arterial Total Hemglobin 11.7 g/dl (12.0-18.0); Arterial pCO2 46.9 mmhg (35-45); MODE ROOM AIR; Site Right Radial
[2017-08-27] MEDS: ALBUTEROL 0.083% (NEB) 2.5 MG/3 ML AMP HHN ×4 (09:20→20:06)
[2017-08-27] MEDS: predniSONE 2.5 MG TAB NGT (16:34)
[2017-08-27] MEDS: PRAMIPEXOLE 0.125 MG TAB PO (21:21)
[2017-08-27] MEDS: MONTELUKAST 10 MG TAB PO (21:22)
[2017-08-27] MEDS: RANITIDINE 150 MG TAB PO (21:23)
[2017-08-27] MEDS ORDERED: NPH, HUMAN INSULIN ISOPHANE 3ML VIAL SC (22:00)
[2017-08-28] MEDS: hydrALAzine 20 MG INJ IV ×2 (00:19→04:05)
[2017-08-28] MEDS: PANTOPRAZOLE 40 MG INJ IV (05:43)
[2017-08-28] MEDS: METHYLPREDNISOLONE 40 MG INJ IV ×2 (05:43→14:08)
[2017-08-28] MEDS: FUROSEMIDE 40 MG INJ IV (05:43)
[2017-08-28 05:49] LABS: ADD MAN DIFF? NO
[2017-08-28 05:50] LABS: WHITE BLOOD COUNT 10.7 10^3/ul (4.8-10.8)
[2017-08-28 05:50] LABS: BASOPHILS % 0.2 % (0.0-2.0); HEMOGLOBIN 10.6 g/dl (12.0-16.0); LYMPHOCYTES # 1.1 10^3/ul (0.8-2.9); LYMPHOCYTES % 9.9 % (15.0-51.0); MEAN CORPUSCULAR HEMOGLOBIN 30.4 pg (29.0-33.0); MEAN CORPUSCULAR HGB CONC 33.1 g/dl (32.0-37.0); MEAN CORPUSCULAR VOLUME 91.7 fl (82.0-101.0); MEAN PLATELET VOLUME 9.9 fl (7.4-10.4); MONOCYTE # 0.9 10^3/ul (0.3-0.9); MONOCYTES % 8.5 % (0.0-11.0); NEUTROPHIL # 8.5 10^3/ul (1.6-7.5); NEUTROPHILS % 79.7 % (39.0-77.0); NUCLEATED RED BLOOD CELLS% 0.4 /100WBC (0.0-0.0); PLATELET COUNT 243 10^3/UL (140-415); RED BLOOD COUNT 3.49 10^6/ul (4.20-5.40); RED CELL DISTRIBUTION WIDTH 16.6 % (11.5-14.5)
[2017-08-28] MEDS: NPH, HUMAN INSULIN ISOPHANE 3ML VIAL SC ×3 (05:54→20:10)
[2017-08-28 06:29] LABS: ANION GAP 15 (8-16); BLOOD UREA NITROGEN 76 mg/dl (7-20); CALCIUM 9.7 mg/dl (8.4-10.2); CARBON DIOXIDE 32 mmol/L (21-31); CHLORIDE 98 mmol/L (97-110); CREATININE 1.14 mg/dl (0.44-1.00); GLUCOSE 233 mg/dl (70-220); MAGNESIUM 1.8 mg/dl (1.7-2.5); PHOSPHORUS 4.3 mg/dl (2.5-4.9); POTASSIUM 3.7 mmol/L (3.5-5.1); SODIUM 141 mmol/L (135-144)
[2017-08-28] MEDS: L ACIDOPHIL/B LACTIS/B LONGUM CAPSULE PO ×2 (08:12→20:03)
[2017-08-28] MEDS: GABAPENTIN 300 MG CAP NGT ×3 (08:12→20:04)
[2017-08-28] MEDS: MAGNESIUM CHLORIDE (SR) 64 MG TAB PO (08:12)
[2017-08-28] MEDS: SUCRALFATE 1 GM TAB PO ×4 (08:13→20:02)
[2017-08-28] MEDS: RIFAXIMIN 550 MG TAB PO ×2 (08:13→20:02)
[2017-08-28] MEDS: METOPROLOL 100 MG TAB NGT ×2 (08:14→20:03)
[2017-08-28] MEDS: FLUTICASONE/VILANTEROL 100-25 INH (08:15)
[2017-08-28] MEDS: TIOTROPIUM 18 MCG CAPSULE INHA DEV INH (08:15)
[2017-08-28] MEDS: FLUTICASONE 0.05% 16 GM NAS SPRAY NASAL ×2 (08:16→20:01)
[2017-08-28] MEDS: NYSTATIN 30 GM POWDER BTL TOP ×2 (08:17→20:04)
[2017-08-28] MEDS: NYSTATIN/TRIAMCINOLONE 15 GM CR TOP (08:17)
[2017-08-28] MEDS: INSULIN ASPART [NOVOLOG] 3 ML PEN SC ×7 (08:22→20:10)
[2017-08-28] MEDS: INSULIN GLARGINE [LANtus] 3 ML PEN SC (08:24)
[2017-08-28] MEDS: ALBUTEROL 0.083% (NEB) 2.5 MG/3 ML AMP HHN ×4 (09:00→20:05)
[2017-08-28 10:58] LABS: PROCALCITONIN 0.43 ng/mL (<0.10)
[2017-08-28] MEDS: predniSONE 2.5 MG TAB NGT (17:17)
[2017-08-28] MEDS: MONTELUKAST 10 MG TAB PO (20:01)
[2017-08-28] MEDS: RANITIDINE 150 MG TAB PO (20:01)
[2017-08-28] MEDS: PRAMIPEXOLE 0.125 MG TAB PO (20:02)
[2017-08-29 06:41] LABS: ADD MAN DIFF? NO
[2017-08-29 06:43] LABS: WHITE BLOOD COUNT 10.2 10^3/ul (4.8-10.8)
[2017-08-29 06:43] LABS: BASOPHILS % 0.1 % (0.0-2.0); HEMATOCRIT 31.9 % (37.0-47.0); HEMOGLOBIN 10.4 g/dl (12.0-16.0); LYMPHOCYTES # 0.7 10^3/ul (0.8-2.9); LYMPHOCYTES % 6.4 % (15.0-51.0); MEAN CORPUSCULAR HEMOGLOBIN 30.3 pg (29.0-33.0); MEAN CORPUSCULAR HGB CONC 32.6 g/dl (32.0-37.0); MEAN PLATELET VOLUME 10.4 fl (7.4-10.4); MONOCYTE # 0.9 10^3/ul (0.3-0.9); MONOCYTES % 9.1 % (0.0-11.0); NEUTROPHIL # 8.4 10^3/ul (1.6-7.5); NEUTROPHILS % 82.1 % (39.0-77.0); NUCLEATED RED BLOOD CELLS # 0.1 10^3/ul (0.0-0.0); NUCLEATED RED BLOOD CELLS% 0.7 /100WBC (0.0-0.0); PLATELET COUNT 244 10^3/UL (140-415); RED BLOOD COUNT 3.43 10^6/ul (4.20-5.40); RED CELL DISTRIBUTION WIDTH 16.5 % (11.5-14.5)
[2017-08-29] MEDS: PANTOPRAZOLE 40 MG INJ IV (06:44)
[2017-08-29] MEDS: NPH, HUMAN INSULIN ISOPHANE 3ML VIAL SC (06:46)
[2017-08-29 07:05] LABS: ALANINE AMINOTRANSFERASE 73 IU/L (13-69); ALBUMIN/GLOBULIN RATIO 0.85; ALKALINE PHOSPHATASE 204 IU/L (42-121); ANION GAP 15 (8-16); ASPARTATE AMINO TRANSFERASE 80 IU/L (15-46); BILIRUBIN,INDIRECT 0.3 mg/dl (0-1.1); BILIRUBIN,TOTAL 0.3 mg/dl (0.2-1.3); BLOOD UREA NITROGEN 84 mg/dl (7-20); CALCIUM 9.4 mg/dl (8.4-10.2); CARBON DIOXIDE 32 mmol/L (21-31); CHLORIDE 98 mmol/L (97-110); CREATININE 1.32 mg/dl (0.44-1.00); GLUCOSE 330 mg/dl (70-220); MAGNESIUM 1.8 mg/dl (1.7-2.5); POTASSIUM 3.7 mmol/L (3.5-5.1); SODIUM 141 mmol/L (135-144); TOTAL PROTEIN 6.5 g/dl (6.1-8.1)
[2017-08-29 07:13] LABS: B-TYPE NATRIURETIC PEPTIDE 4210 PG/ML (0-125)
[2017-08-29] MEDS: INSULIN GLARGINE [LANtus] 3 ML PEN SC (07:51)
[2017-08-29] MEDS: INSULIN ASPART [NOVOLOG] 3 ML PEN SC ×7 (07:51→20:31)
[2017-08-29] MEDS: SUCRALFATE 1 GM TAB PO ×4 (08:13→20:23)
[2017-08-29] MEDS: RIFAXIMIN 550 MG TAB PO ×2 (08:14→20:23)
[2017-08-29] MEDS: GABAPENTIN 300 MG CAP NGT ×3 (08:14→20:24)
[2017-08-29] MEDS: TIOTROPIUM 18 MCG CAPSULE INHA DEV INH (08:15)
[2017-08-29] MEDS: MAGNESIUM CHLORIDE (SR) 64 MG TAB PO (08:16)
[2017-08-29] MEDS: FLUTICASONE 0.05% 16 GM NAS SPRAY NASAL ×2 (08:16→20:22)
[2017-08-29] MEDS: L ACIDOPHIL/B LACTIS/B LONGUM CAPSULE PO ×2 (08:16→20:23)
[2017-08-29] MEDS: METOPROLOL 100 MG TAB NGT ×2 (08:18→20:24)
[2017-08-29] MEDS: FLUTICASONE/VILANTEROL 100-25 INH (08:19)
[2017-08-29] MEDS: NYSTATIN/TRIAMCINOLONE 15 GM CR TOP (08:29)
[2017-08-29] MEDS: METHYLPREDNISOLONE 40 MG INJ IV (08:29)
[2017-08-29] MEDS: NYSTATIN 30 GM POWDER BTL TOP ×2 (08:29→20:31)
[2017-08-29] MEDS: FUROSEMIDE 40 MG INJ IV (08:34)
[2017-08-29] MEDS: ALBUTEROL 0.083% (NEB) 2.5 MG/3 ML AMP HHN ×4 (09:00→20:38)
[2017-08-29] MEDS: hydrALAzine 20 MG INJ IV (11:46)
[2017-08-29] MEDS: predniSONE 2.5 MG TAB NGT (17:03)
[2017-08-29] MEDS: PRAMIPEXOLE 0.125 MG TAB PO (20:23)
[2017-08-29] MEDS: RANITIDINE 150 MG TAB PO (20:23)
[2017-08-29] MEDS: MONTELUKAST 10 MG TAB PO (20:24)
[2017-08-30] MEDS: PANTOPRAZOLE 40 MG INJ IV (06:39)
[2017-08-30 07:11] LABS: ADD MAN DIFF? NO
[2017-08-30 07:28] LABS: WHITE BLOOD COUNT 10.1 10^3/ul (4.8-10.8)
[2017-08-30 07:28] LABS: BASOPHILS % 0.2 % (0.0-2.0); HEMATOCRIT 32.8 % (37.0-47.0); HEMOGLOBIN 10.6 g/dl (12.0-16.0); LYMPHOCYTES # 0.7 10^3/ul (0.8-2.9); LYMPHOCYTES % 6.5 % (15.0-51.0); MEAN CORPUSCULAR HGB CONC 32.3 g/dl (32.0-37.0); MEAN CORPUSCULAR VOLUME 92.9 fl (82.0-101.0); MEAN PLATELET VOLUME 10.3 fl (7.4-10.4); MONOCYTE # 1.3 10^3/ul (0.3-0.9); MONOCYTES % 12.7 % (0.0-11.0); NEUTROPHIL # 7.7 10^3/ul (1.6-7.5); NEUTROPHILS % 76.6 % (39.0-77.0); NUCLEATED RED BLOOD CELLS # 0.1 10^3/ul (0.0-0.0); NUCLEATED RED BLOOD CELLS% 0.6 /100WBC (0.0-0.0); PLATELET COUNT 251 10^3/UL (140-415); RED BLOOD COUNT 3.53 10^6/ul (4.20-5.40); RED CELL DISTRIBUTION WIDTH 16.4 % (11.5-14.5)
[2017-08-30 07:33] LABS: ALANINE AMINOTRANSFERASE 85 IU/L (13-69); ALBUMIN 2.8 g/dl (3.3-4.9); ALBUMIN/GLOBULIN RATIO 0.71; ALKALINE PHOSPHATASE 199 IU/L (42-121); ANION GAP 12 (8-16); ASPARTATE AMINO TRANSFERASE 96 IU/L (15-46); BILIRUBIN,INDIRECT 0.4 mg/dl (0-1.1); BILIRUBIN,TOTAL 0.4 mg/dl (0.2-1.3); BLOOD UREA NITROGEN 85 mg/dl (7-20); CALCIUM 9.2 mg/dl (8.4-10.2); CARBON DIOXIDE 32 mmol/L (21-31); CHLORIDE 102 mmol/L (97-110); CREATININE 1.24 mg/dl (0.44-1.00); GLUCOSE 303 mg/dl (70-220); MAGNESIUM 1.9 mg/dl (1.7-2.5); POTASSIUM 3.8 mmol/L (3.5-5.1); SODIUM 142 mmol/L (135-144); TOTAL PROTEIN 6.7 g/dl (6.1-8.1)
[2017-08-30 07:41] LABS: B-TYPE NATRIURETIC PEPTIDE 4100 PG/ML (0-125)
[2017-08-30] MEDS ORDERED: INSULIN GLARGINE [LANtus] 3 ML PEN SC (08:00)
[2017-08-30] MEDS: ALBUTEROL 0.083% (NEB) 2.5 MG/3 ML AMP HHN ×4 (08:26→20:29)
[2017-08-30] MEDS ORDERED: NPH, HUMAN INSULIN ISOPHANE 3ML VIAL SC (09:00)
[2017-08-30] MEDS: INSULIN ASPART [NOVOLOG] 3 ML PEN SC ×7 (09:03→20:27)
[2017-08-30] MEDS: SUCRALFATE 1 GM TAB PO ×4 (09:06→20:20)
[2017-08-30] MEDS: FLUTICASONE/VILANTEROL 100-25 INH (09:07)
[2017-08-30] MEDS: TIOTROPIUM 18 MCG CAPSULE INHA DEV INH (09:07)
[2017-08-30] MEDS: RIFAXIMIN 550 MG TAB PO ×2 (09:08→20:21)
[2017-08-30] MEDS: L ACIDOPHIL/B LACTIS/B LONGUM CAPSULE PO ×2 (09:08→20:22)
[2017-08-30] MEDS: MAGNESIUM CHLORIDE (SR) 64 MG TAB PO (09:08)
[2017-08-30] MEDS: GABAPENTIN 300 MG CAP NGT ×3 (09:08→20:21)
[2017-08-30] MEDS: METOPROLOL 100 MG TAB NGT ×2 (09:09→20:18)
[2017-08-30] MEDS: FUROSEMIDE 40 MG INJ IV (09:10)
[2017-08-30] MEDS: METHYLPREDNISOLONE 40 MG INJ IV (09:10)
[2017-08-30] MEDS: NYSTATIN 30 GM POWDER BTL TOP ×2 (09:11→20:22)
[2017-08-30] MEDS: FLUTICASONE 0.05% 16 GM NAS SPRAY NASAL ×2 (09:11→20:22)
[2017-08-30] MEDS: NYSTATIN/TRIAMCINOLONE 15 GM CR TOP (09:11)
[2017-08-30] MEDS: NPH, HUMAN INSULIN ISOPHANE 3ML VIAL SC (10:50)
[2017-08-30] MEDS: INSULIN GLARGINE [LANtus] 3 ML PEN SC (10:55)
[2017-08-30] MEDS: predniSONE 2.5 MG TAB NGT (17:35)
[2017-08-30] MEDS: hydrALAzine 20 MG INJ IV (18:51)
[2017-08-30] MEDS: MONTELUKAST 10 MG TAB PO (20:20)
[2017-08-30] MEDS: RANITIDINE 150 MG TAB PO (20:21)
[2017-08-30] MEDS: PRAMIPEXOLE 0.125 MG TAB PO (20:22)
[2017-08-31] MEDS: SUCRALFATE 1 GM TAB PO ×4 (06:59→20:53)
[2017-08-31] MEDS: PANTOPRAZOLE 40 MG INJ IV (06:59)
[2017-08-31] MEDS: INSULIN ASPART [NOVOLOG] 3 ML PEN SC ×7 (07:54→20:51)
[2017-08-31] MEDS: INSULIN GLARGINE [LANtus] 3 ML PEN SC (07:54)
[2017-08-31] MEDS: NPH, HUMAN INSULIN ISOPHANE 3ML VIAL SC (08:43)
[2017-08-31] MEDS: MAGNESIUM CHLORIDE (SR) 64 MG TAB PO (08:46)
[2017-08-31] MEDS: METOPROLOL 100 MG TAB NGT ×2 (08:46→20:52)
[2017-08-31] MEDS: L ACIDOPHIL/B LACTIS/B LONGUM CAPSULE PO ×2 (08:46→20:51)
[2017-08-31] MEDS: RIFAXIMIN 550 MG TAB PO ×2 (08:47→20:53)
[2017-08-31] MEDS: GABAPENTIN 300 MG CAP NGT ×3 (08:47→20:51)
[2017-08-31] MEDS: FUROSEMIDE 40 MG INJ IV (08:48)
[2017-08-31] MEDS: METHYLPREDNISOLONE 40 MG INJ IV (08:48)
[2017-08-31] MEDS: TIOTROPIUM 18 MCG CAPSULE INHA DEV INH (08:49)
[2017-08-31] MEDS: FLUTICASONE/VILANTEROL 100-25 INH (08:49)
[2017-08-31] MEDS: FLUTICASONE 0.05% 16 GM NAS SPRAY NASAL ×2 (08:49→20:53)
[2017-08-31] MEDS: NYSTATIN 30 GM POWDER BTL TOP ×2 (08:50→20:53)
[2017-08-31] MEDS: NYSTATIN/TRIAMCINOLONE 15 GM CR TOP (08:50)
[2017-08-31 09:04] LABS: ANION GAP 14 (8-16); BLOOD UREA NITROGEN 91 mg/dl (7-20); CALCIUM 9.2 mg/dl (8.4-10.2); CARBON DIOXIDE 34 mmol/L (21-31); CHLORIDE 98 mmol/L (97-110); CREATININE 1.16 mg/dl (0.44-1.00); GLUCOSE 194 mg/dl (70-220); SODIUM 142 mmol/L (135-144)
[2017-08-31 09:05] LABS: B-TYPE NATRIURETIC PEPTIDE 3130 PG/ML (0-125)
[2017-08-31] MEDS: ALBUTEROL 0.083% (NEB) 2.5 MG/3 ML AMP HHN ×4 (09:24→20:31)
[2017-08-31] MEDS: hydrALAzine 20 MG INJ IV (12:32)
[2017-08-31] MEDS: predniSONE 2.5 MG TAB NGT (17:55)
[2017-08-31] MEDS: PRAMIPEXOLE 0.125 MG TAB PO (20:51)
[2017-08-31] MEDS: MONTELUKAST 10 MG TAB PO (20:52)
[2017-08-31] MEDS: RANITIDINE 150 MG TAB PO (20:53)
[2017-09-01] MEDS: PANTOPRAZOLE 40 MG INJ IV (06:18)
[2017-09-01 06:19] LABS: WHITE BLOOD COUNT 12.3 10^3/ul (4.8-10.8)
[2017-09-01 06:19] LABS: ABNORMAL IP MESSAGE 1; HEMATOCRIT 32.5 % (37.0-47.0); HEMOGLOBIN 10.6 g/dl (12.0-16.0); MEAN CORPUSCULAR HEMOGLOBIN 30.4 pg (29.0-33.0); MEAN CORPUSCULAR HGB CONC 32.6 g/dl (32.0-37.0); MEAN CORPUSCULAR VOLUME 93.1 fl (82.0-101.0); MEAN PLATELET VOLUME 10.3 fl (7.4-10.4); NUCLEATED RED BLOOD CELLS% 1.5 /100WBC (0.0-0.0); PLATELET COUNT 236 10^3/UL (140-415); RED BLOOD COUNT 3.49 10^6/ul (4.20-5.40); RED CELL DISTRIBUTION WIDTH 16.2 % (11.5-14.5)
[2017-09-01 06:53] LABS: ADD MAN DIFF? YES; POSITIVE DIFF @See below
[2017-09-01 07:19] LABS: ANION GAP 11 (8-16); BLOOD UREA NITROGEN 93 mg/dl (7-20); CARBON DIOXIDE 34 mmol/L (21-31); CHLORIDE 102 mmol/L (97-110); CREATININE 1.24 mg/dl (0.44-1.00); GLUCOSE 181 mg/dl (70-220); SODIUM 143 mmol/L (135-144)
[2017-09-01] MEDS: SUCRALFATE 1 GM TAB PO ×4 (08:14→20:34)
[2017-09-01] MEDS: INSULIN GLARGINE [LANtus] 3 ML PEN SC (08:35)
[2017-09-01] MEDS: INSULIN ASPART [NOVOLOG] 3 ML PEN SC ×7 (08:35→20:45)
[2017-09-01] MEDS: METHYLPREDNISOLONE 40 MG INJ IV (08:58)
[2017-09-01] MEDS: FUROSEMIDE 40 MG INJ IV (08:59)
[2017-09-01] MEDS: L ACIDOPHIL/B LACTIS/B LONGUM CAPSULE PO ×2 (08:59→20:34)
[2017-09-01] MEDS: GABAPENTIN 300 MG CAP NGT ×3 (08:59→20:34)
[2017-09-01] MEDS: RIFAXIMIN 550 MG TAB PO ×2 (08:59→20:34)
[2017-09-01] MEDS: FLUTICASONE 0.05% 16 GM NAS SPRAY NASAL ×2 (09:00→20:32)
[2017-09-01] MEDS: METOPROLOL 100 MG TAB NGT ×2 (09:00→20:34)
[2017-09-01] MEDS: NYSTATIN 30 GM POWDER BTL TOP ×2 (09:00→20:36)
[2017-09-01] MEDS: MAGNESIUM CHLORIDE (SR) 64 MG TAB PO (09:00)
[2017-09-01] MEDS: NYSTATIN/TRIAMCINOLONE 15 GM CR TOP (09:01)
[2017-09-01] MEDS: NPH, HUMAN INSULIN ISOPHANE 3ML VIAL SC (09:04)
[2017-09-01] MEDS: ALBUTEROL 0.083% (NEB) 2.5 MG/3 ML AMP HHN ×4 (09:16→20:45)
[2017-09-01] MEDS: hydrALAzine 20 MG INJ IV (09:16)
[2017-09-01 10:04] LABS: ANISOCYTOSIS 1+ (0-0); ERYTHROBLAST% (NRBC) (M) 1 % (0-0); LYMPHOCYTES #M 0.6 10^3/ul (0.8-2.9); LYMPHOCYTES % (M) 5 % (15-51); METAMYELOCYTES #M 0.6 10^3/ul (0.0-0.0); METAMYELOCYTES %M 5 % (0-0); MONOCYTE #M 1.2 10^3/ul (0.3-0.9); MONOCYTES % (M) 10 % (0-11); MYELOCYTES #M 0.3 10^3/ul (0.0-0.0); MYELOCYTES % (M) 3 % (0-0); OVALOCYTES 1+ (0-0); PLATELET ESTIMATE NORMAL; POIKILOCYTOSIS 1+ (0-0); POLYCHROMASIA 1+ (0-0); REACTIVE LYMPHOCYTES #M 0.1 10^3/ul (0.0-0.0); REACTIVE LYMPHOCYTES% (M) 1 % (0-0); SEGMENTED NEUTROPHILS (M) % 76 % (39-77); SMUDGE%M 6 % (0-0)
[2017-09-01] MEDS: TIOTROPIUM 18 MCG CAPSULE INHA DEV INH (10:08)
[2017-09-01] MEDS: FLUTICASONE/VILANTEROL 100-25 INH (10:08)
[2017-09-01] MEDS: predniSONE 2.5 MG TAB NGT (17:20)
[2017-09-01] MEDS: PRAMIPEXOLE 0.125 MG TAB PO (20:34)
[2017-09-01] MEDS: MONTELUKAST 10 MG TAB PO (20:34)
[2017-09-01] MEDS: RANITIDINE 150 MG TAB PO (20:35)
[2017-09-02] MEDS: PANTOPRAZOLE 40 MG INJ IV (06:03)
[2017-09-02 08:07] LABS: ABNORMAL IP MESSAGE 1; HEMATOCRIT 33.9 % (37.0-47.0); MEAN CORPUSCULAR HEMOGLOBIN 30.1 pg (29.0-33.0); MEAN CORPUSCULAR HGB CONC 32.4 g/dl (32.0-37.0); MEAN CORPUSCULAR VOLUME 92.9 fl (82.0-101.0); MEAN PLATELET VOLUME 10.3 fl (7.4-10.4); NUCLEATED RED BLOOD CELLS% 1.1 /100WBC (0.0-0.0); PLATELET COUNT 219 10^3/UL (140-415); RED BLOOD COUNT 3.65 10^6/ul (4.20-5.40); RED CELL DISTRIBUTION WIDTH 16.4 % (11.5-14.5)
[2017-09-02 08:07] LABS: WHITE BLOOD COUNT 12.3 10^3/ul (4.8-10.8)
[2017-09-02 08:08] LABS: ADD MAN DIFF? YES; POSITIVE DIFF @See below
[2017-09-02] MEDS: NPH, HUMAN INSULIN ISOPHANE 3ML VIAL SC (08:23)
[2017-09-02] MEDS: INSULIN ASPART [NOVOLOG] 3 ML PEN SC ×7 (08:24→20:50)
[2017-09-02] MEDS: INSULIN GLARGINE [LANtus] 3 ML PEN SC (08:24)
[2017-09-02 08:38] LABS: ANION GAP 13 (8-16); BLOOD UREA NITROGEN 98 mg/dl (7-20); CALCIUM 9.2 mg/dl (8.4-10.2); CARBON DIOXIDE 34 mmol/L (21-31); CHLORIDE 99 mmol/L (97-110); CREATININE 1.17 mg/dl (0.44-1.00); GLUCOSE 164 mg/dl (70-220); POTASSIUM 4.3 mmol/L (3.5-5.1); SODIUM 142 mmol/L (135-144)
[2017-09-02] MEDS: RIFAXIMIN 550 MG TAB PO ×2 (08:47→20:37)
[2017-09-02] MEDS: TIOTROPIUM 18 MCG CAPSULE INHA DEV INH (08:47)
[2017-09-02] MEDS: SUCRALFATE 1 GM TAB PO ×4 (08:47→20:36)
[2017-09-02] MEDS: L ACIDOPHIL/B LACTIS/B LONGUM CAPSULE PO ×2 (08:47→20:36)
[2017-09-02] MEDS: GABAPENTIN 300 MG CAP NGT ×3 (08:47→20:36)
[2017-09-02] MEDS: MAGNESIUM CHLORIDE (SR) 64 MG TAB PO (08:47)
[2017-09-02] MEDS: METOPROLOL 100 MG TAB NGT ×2 (08:48→20:36)
[2017-09-02] MEDS: FLUTICASONE/VILANTEROL 100-25 INH (08:49)
[2017-09-02] MEDS: FUROSEMIDE 40 MG INJ IV (08:50)
[2017-09-02] MEDS: FLUTICASONE 0.05% 16 GM NAS SPRAY NASAL ×2 (08:50→20:34)
[2017-09-02] MEDS: METHYLPREDNISOLONE 40 MG INJ IV (08:51)
[2017-09-02] MEDS: NYSTATIN/TRIAMCINOLONE 15 GM CR TOP (08:51)
[2017-09-02] MEDS: NYSTATIN 30 GM POWDER BTL TOP ×2 (08:51→20:37)
[2017-09-02 09:00] LABS: ANISOCYTOSIS 1+ (0-0); BAND NEUTROPHILS #M 0.3 10^3/ul (0.0-0.6); BAND NEUTROPHILS % (M) 3 % (0-4); GIANT THROMBO% (M) 1 % (0-0); HYPOCHROMASIA 1+ (0-0); LYMPHOCYTES #M 1.4 10^3/ul (0.8-2.9); LYMPHOCYTES % (M) 12 % (15-51); MONOCYTE #M 0.9 10^3/ul (0.3-0.9); MONOCYTES % (M) 8 % (0-11); PLATELET ESTIMATE NORMAL; POLYCHROMASIA 3+ (0-0); REACTIVE LYMPHOCYTES #M 0.1 10^3/ul (0.0-0.0); REACTIVE LYMPHOCYTES% (M) 1 % (0-0); SEG NEUT #M 9.4 10^3/ul (1.6-7.5); SEGMENTED NEUTROPHILS (M) % 76 % (39-77); SMUDGE%M 3 % (0-0)
[2017-09-02] MEDS ORDERED: BENZOCAINE 20% 0.33 OZ. GEL MM (09:00)
[2017-09-02] MEDS ORDERED: BENZOCAINE 10% 7 GM GEL MM (09:00)
[2017-09-02] MEDS: ALBUTEROL 0.083% (NEB) 2.5 MG/3 ML AMP HHN ×4 (10:00→21:03)
[2017-09-02] MEDS: predniSONE 2.5 MG TAB NGT (17:10)
[2017-09-02] MEDS: BENZOCAINE 20% 0.33 OZ. GEL MM (18:52)
[2017-09-02] MEDS: PRAMIPEXOLE 0.125 MG TAB PO (20:36)
[2017-09-02] MEDS: MONTELUKAST 10 MG TAB PO (20:37)
[2017-09-02] MEDS: RANITIDINE 150 MG TAB PO (20:37)
[2017-09-03] MEDS: BENZOCAINE 20% 0.33 OZ. GEL MM ×2 (02:12→21:16)
[2017-09-03] MEDS: PANTOPRAZOLE 40 MG INJ IV (05:56)
[2017-09-03 07:41] LABS: ADD MAN DIFF? NO
[2017-09-03 07:52] LABS: WHITE BLOOD COUNT 10.6 10^3/ul (4.8-10.8)
[2017-09-03 07:52] LABS: BASOPHILS % 0.2 % (0.0-2.0); HEMATOCRIT 31.7 % (37.0-47.0); HEMOGLOBIN 10.2 g/dl (12.0-16.0); LYMPHOCYTES # 0.8 10^3/ul (0.8-2.9); LYMPHOCYTES % 7.2 % (15.0-51.0); MEAN CORPUSCULAR HGB CONC 32.2 g/dl (32.0-37.0); MEAN CORPUSCULAR VOLUME 93.2 fl (82.0-101.0); MEAN PLATELET VOLUME 10.5 fl (7.4-10.4); MONOCYTE # 1.2 10^3/ul (0.3-0.9); MONOCYTES % 11.3 % (0.0-11.0); NEUTROPHIL # 8.1 10^3/ul (1.6-7.5); NEUTROPHILS % 76.5 % (39.0-77.0); NUCLEATED RED BLOOD CELLS # 0.1 10^3/ul (0.0-0.0); NUCLEATED RED BLOOD CELLS% 0.7 /100WBC (0.0-0.0); PLATELET COUNT 179 10^3/UL (140-415); RED CELL DISTRIBUTION WIDTH 16.6 % (11.5-14.5)
[2017-09-03] MEDS: INSULIN ASPART [NOVOLOG] 3 ML PEN SC ×7 (07:55→21:00)
[2017-09-03 08:10] LABS: ALANINE AMINOTRANSFERASE 124 IU/L (13-69); ALBUMIN 2.7 g/dl (3.3-4.9); ALBUMIN/GLOBULIN RATIO 0.81; ALKALINE PHOSPHATASE 159 IU/L (42-121); ANION GAP 13 (8-16); ASPARTATE AMINO TRANSFERASE 116 IU/L (15-46); BILIRUBIN,INDIRECT 0.3 mg/dl (0-1.1); BILIRUBIN,TOTAL 0.3 mg/dl (0.2-1.3); BLOOD UREA NITROGEN 103 mg/dl (7-20); CALCIUM 9.1 mg/dl (8.4-10.2); CARBON DIOXIDE 35 mmol/L (21-31); CHLORIDE 99 mmol/L (97-110); CREATININE 1.18 mg/dl (0.44-1.00); GLUCOSE 151 mg/dl (70-220); POTASSIUM 4.4 mmol/L (3.5-5.1); SODIUM 143 mmol/L (135-144)
[2017-09-03 08:15] LABS: B-TYPE NATRIURETIC PEPTIDE 1600 PG/ML (0-125)
[2017-09-03] MEDS: L ACIDOPHIL/B LACTIS/B LONGUM CAPSULE PO ×2 (08:34→21:06)
[2017-09-03] MEDS: MAGNESIUM CHLORIDE (SR) 64 MG TAB PO (08:34)
[2017-09-03] MEDS: METOPROLOL 100 MG TAB NGT ×2 (08:35→21:06)
[2017-09-03] MEDS: GABAPENTIN 300 MG CAP NGT ×3 (08:35→21:06)
[2017-09-03] MEDS: SUCRALFATE 1 GM TAB PO ×4 (08:36→21:07)
[2017-09-03] MEDS: RIFAXIMIN 550 MG TAB PO ×2 (08:36→21:07)
[2017-09-03] MEDS: TIOTROPIUM 18 MCG CAPSULE INHA DEV INH (08:37)
[2017-09-03] MEDS: METHYLPREDNISOLONE 40 MG INJ IV (08:37)
[2017-09-03] MEDS: FUROSEMIDE 40 MG INJ IV (08:39)
[2017-09-03] MEDS: INSULIN GLARGINE [LANtus] 3 ML PEN SC (08:53)
[2017-09-03 08:55] LABS: AADO2 Arterial 34.2 mmHg (7.0-24.0); Allen Test ACCEPTAB; Arterial Base Excess 6.2 mmol/L (-3.0-3); Arterial Blood Gas Oxygen Sat 97.2 mmHG (95.0-100.0); Arterial COHb 0.2 % (0.0-3.0); Arterial Fraction of Oxyhgb 96.6 % (93.0-99.0); Arterial MetHb 0.4 % (0.0-1.5); Arterial Total Hemglobin 11.8 g/dl (12.0-18.0); Arterial pCO2 51.5 mmhg (35-45); MODE NASAL CANNULA; Site Left Radial
[2017-09-03] MEDS: FLUTICASONE 0.05% 16 GM NAS SPRAY NASAL ×2 (08:56→21:04)
[2017-09-03] MEDS: NYSTATIN 30 GM POWDER BTL TOP ×2 (08:56→21:07)
[2017-09-03] MEDS: FLUTICASONE/VILANTEROL 100-25 INH (08:57)
[2017-09-03] MEDS: NYSTATIN/TRIAMCINOLONE 15 GM CR TOP (08:58)
[2017-09-03 09:11] LABS: AMMONIA 121 umol/l (9-30)
[2017-09-03] MEDS: ALBUTEROL 0.083% (NEB) 2.5 MG/3 ML AMP HHN ×4 (09:32→20:35)
[2017-09-03] MEDS: NPH, HUMAN INSULIN ISOPHANE 3ML VIAL SC (10:33)
[2017-09-03] MEDS: LACTULOSE 30ML CUP PO ×2 (15:47→22:00)
[2017-09-03] MEDS: predniSONE 2.5 MG TAB NGT (17:34)
[2017-09-03] MEDS: RANITIDINE 150 MG TAB PO (21:07)
[2017-09-03] MEDS: MONTELUKAST 10 MG TAB PO (21:07)
[2017-09-03] MEDS: PRAMIPEXOLE 0.125 MG TAB PO (21:07)
[2017-09-04] MEDS: IBUPROFEN 400 MG TAB PO (04:02)
[2017-09-04] MEDS: PANTOPRAZOLE 40 MG INJ IV (05:43)
[2017-09-04] MEDS: LACTULOSE 30ML CUP PO ×3 (05:44→22:00)
[2017-09-04] MEDS: FLUTICASONE/VILANTEROL 100-25 INH (08:15)
[2017-09-04] MEDS: METHYLPREDNISOLONE 40 MG INJ IV (08:15)
[2017-09-04 08:17] LABS: ADD MAN DIFF? NO
[2017-09-04] MEDS: METOPROLOL 100 MG TAB NGT ×2 (08:17→20:44)
[2017-09-04] MEDS: MAGNESIUM CHLORIDE (SR) 64 MG TAB PO (08:18)
[2017-09-04] MEDS: SUCRALFATE 1 GM TAB PO ×4 (08:18→20:42)
[2017-09-04] MEDS: FUROSEMIDE 40 MG INJ IV (08:18)
[2017-09-04] MEDS: RIFAXIMIN 550 MG TAB PO ×2 (08:18→20:42)
[2017-09-04] MEDS: L ACIDOPHIL/B LACTIS/B LONGUM CAPSULE PO ×2 (08:19→20:34)
[2017-09-04] MEDS: GABAPENTIN 300 MG CAP NGT ×3 (08:19→20:34)
[2017-09-04] MEDS: FLUTICASONE 0.05% 16 GM NAS SPRAY NASAL ×2 (08:19→20:45)
[2017-09-04] MEDS: TIOTROPIUM 18 MCG CAPSULE INHA DEV INH (08:19)
[2017-09-04 08:20] LABS: ABNORMAL IP MESSAGE 1; BASOPHIL # 0.1 10^3/ul (0.0-0.1); BASOPHILS % 0.3 % (0.0-2.0); EOSINOPHILS % 0.1 % (0.0-7.0); HEMATOCRIT 33.8 % (37.0-47.0); HEMOGLOBIN 10.8 g/dl (12.0-16.0); LYMPHOCYTES # 0.7 10^3/ul (0.8-2.9); LYMPHOCYTES % 5.1 % (15.0-51.0); MEAN CORPUSCULAR HEMOGLOBIN 30.3 pg (29.0-33.0); MEAN CORPUSCULAR VOLUME 94.7 fl (82.0-101.0); MEAN PLATELET VOLUME 10.7 fl (7.4-10.4); MONOCYTE # 1.7 10^3/ul (0.3-0.9); MONOCYTES % 12.1 % (0.0-11.0); NEUTROPHIL # 11.2 10^3/ul (1.6-7.5); NEUTROPHILS % 77.7 % (39.0-77.0); NUCLEATED RED BLOOD CELLS # 0.1 10^3/ul (0.0-0.0); NUCLEATED RED BLOOD CELLS% 0.5 /100WBC (0.0-0.0); PLATELET COUNT 198 10^3/UL (140-415); RED BLOOD COUNT 3.57 10^6/ul (4.20-5.40)
[2017-09-04 08:20] LABS: WHITE BLOOD COUNT 14.4 10^3/ul (4.8-10.8)
[2017-09-04] MEDS: NYSTATIN/TRIAMCINOLONE 15 GM CR TOP (08:20)
[2017-09-04] MEDS: NYSTATIN 30 GM POWDER BTL TOP ×2 (08:21→20:36)
[2017-09-04 08:22] LABS: POSITIVE DIFF @See below
[2017-09-04] MEDS: INSULIN ASPART [NOVOLOG] 3 ML PEN SC ×8 (08:27→20:43)
[2017-09-04] MEDS: NPH, HUMAN INSULIN ISOPHANE 3ML VIAL SC (08:29)
[2017-09-04] MEDS: INSULIN GLARGINE [LANtus] 3 ML PEN SC (08:29)
[2017-09-04 08:38] LABS: AMMONIA 39 umol/l (9-30)
[2017-09-04 08:42] LABS: ALANINE AMINOTRANSFERASE 147 IU/L (13-69); ALBUMIN 2.6 g/dl (3.3-4.9); ALBUMIN/GLOBULIN RATIO 0.78; ALKALINE PHOSPHATASE 194 IU/L (42-121); ANION GAP 14 (8-16); ASPARTATE AMINO TRANSFERASE 171 IU/L (15-46); BILIRUBIN,INDIRECT 0.4 mg/dl (0-1.1); BILIRUBIN,TOTAL 0.4 mg/dl (0.2-1.3); BLOOD UREA NITROGEN 110 mg/dl (7-20); CARBON DIOXIDE 33 mmol/L (21-31); CHLORIDE 99 mmol/L (97-110); CREATININE 1.36 mg/dl (0.44-1.00); GLUCOSE 181 mg/dl (70-220); POTASSIUM 4.9 mmol/L (3.5-5.1); SODIUM 141 mmol/L (135-144); TOTAL PROTEIN 5.9 g/dl (6.1-8.1)
[2017-09-04] MEDS: ALBUTEROL 0.083% (NEB) 2.5 MG/3 ML AMP HHN ×4 (10:46→21:57)
[2017-09-04] MEDS: predniSONE 2.5 MG TAB NGT (17:53)
[2017-09-04] MEDS: PRAMIPEXOLE 0.125 MG TAB PO (20:34)
[2017-09-04] MEDS: RANITIDINE 150 MG TAB PO (20:42)
[2017-09-04] MEDS: MONTELUKAST 10 MG TAB PO (20:42)
[2017-09-04] MEDS ORDERED: LACTULOSE 30ML CUP PO (22:30)
[2017-09-05] MEDS: PANTOPRAZOLE 40 MG INJ IV (05:19)
[2017-09-05 07:12] LABS: WHITE BLOOD COUNT 13.3 10^3/ul (4.8-10.8)
[2017-09-05 07:12] LABS: ABNORMAL IP MESSAGE 1; HEMATOCRIT 30.6 % (37.0-47.0); HEMOGLOBIN 9.9 g/dl (12.0-16.0); MEAN CORPUSCULAR HEMOGLOBIN 30.2 pg (29.0-33.0); MEAN CORPUSCULAR HGB CONC 32.4 g/dl (32.0-37.0); MEAN CORPUSCULAR VOLUME 93.3 fl (82.0-101.0); MEAN PLATELET VOLUME 11.4 fl (7.4-10.4); NUCLEATED RED BLOOD CELLS% 0.6 /100WBC (0.0-0.0); PLATELET COUNT 172 10^3/UL (140-415); RED BLOOD COUNT 3.28 10^6/ul (4.20-5.40); RED CELL DISTRIBUTION WIDTH 16.9 % (11.5-14.5)
[2017-09-05 07:18] LABS: POSITIVE DIFF @See below
[2017-09-05 07:19] LABS: ADD MAN DIFF? YES
[2017-09-05 07:25] LABS: AMMONIA 35 umol/l (9-30)
[2017-09-05 07:47] LABS: ALBUMIN 2.5 g/dl (3.3-4.9); ALBUMIN/GLOBULIN RATIO 0.86; ALKALINE PHOSPHATASE 175 IU/L (42-121); ANION GAP 14 (8-16); ASPARTATE AMINO TRANSFERASE 139 IU/L (15-46); BILIRUBIN,INDIRECT 0.3 mg/dl (0-1.1); BILIRUBIN,TOTAL 0.3 mg/dl (0.2-1.3); BLOOD UREA NITROGEN 114 mg/dl (7-20); CARBON DIOXIDE 32 mmol/L (21-31); CHLORIDE 99 mmol/L (97-110); CREATININE 1.61 mg/dl (0.44-1.00); GLUCOSE 284 mg/dl (70-220); POTASSIUM 5.1 mmol/L (3.5-5.1); SODIUM 140 mmol/L (135-144); TOTAL PROTEIN 5.4 g/dl (6.1-8.1)
[2017-09-05 08:04] LABS: ALANINE AMINOTRANSFERASE 145 IU/L (13-69)
[2017-09-05] MEDS: INSULIN GLARGINE [LANtus] 3 ML PEN SC (08:08)
[2017-09-05] MEDS: INSULIN ASPART [NOVOLOG] 3 ML PEN SC ×7 (08:09→20:51)
[2017-09-05] MEDS: ALBUTEROL 0.083% (NEB) 2.5 MG/3 ML AMP HHN ×4 (08:31→20:11)
[2017-09-05 08:45] LABS: ANISOCYTOSIS 1+ (0-0); BAND NEUTROPHILS #M 0.1 10^3/ul (0.0-0.6); BAND NEUTROPHILS % (M) 1 % (0-4); ERYTHROBLAST% (NRBC) (M) 2 % (0-0); LYMPHOCYTES #M 0.6 10^3/ul (0.8-2.9); LYMPHOCYTES % (M) 5 % (15-51); METAMYELOCYTES #M 0.1 10^3/ul (0.0-0.0); METAMYELOCYTES %M 1 % (0-0); MONOCYTE #M 1.1 10^3/ul (0.3-0.9); MONOCYTES % (M) 9 % (0-11); PLATELET ESTIMATE NORMAL; SEG NEUT #M 11.2 10^3/ul (1.6-7.5); SEGMENTED NEUTROPHILS (M) % 84 % (39-77); SMUDGE%M 7 % (0-0)
[2017-09-05] MEDS: L ACIDOPHIL/B LACTIS/B LONGUM CAPSULE PO ×2 (08:54→20:44)
[2017-09-05] MEDS: MAGNESIUM CHLORIDE (SR) 64 MG TAB PO (08:54)
[2017-09-05] MEDS: FUROSEMIDE 40 MG INJ IV (08:54)
[2017-09-05] MEDS: RIFAXIMIN 550 MG TAB PO ×2 (08:55→20:44)
[2017-09-05] MEDS: TIOTROPIUM 18 MCG CAPSULE INHA DEV INH (08:55)
[2017-09-05] MEDS: SUCRALFATE 1 GM TAB PO ×4 (08:55→20:44)
[2017-09-05] MEDS: GABAPENTIN 300 MG CAP NGT ×3 (08:55→20:45)
[2017-09-05] MEDS: METOPROLOL 100 MG TAB NGT ×2 (08:55→20:46)
[2017-09-05] MEDS: FLUTICASONE/VILANTEROL 100-25 INH (08:56)
[2017-09-05] MEDS: METHYLPREDNISOLONE 40 MG INJ IV (08:56)
[2017-09-05] MEDS: FLUTICASONE 0.05% 16 GM NAS SPRAY NASAL ×2 (08:56→20:44)
[2017-09-05] MEDS: NYSTATIN 30 GM POWDER BTL TOP ×2 (09:24→21:00)
[2017-09-05] MEDS: NYSTATIN/TRIAMCINOLONE 15 GM CR TOP (09:24)
[2017-09-05] MEDS: NPH, HUMAN INSULIN ISOPHANE 3ML VIAL SC (09:24)
[2017-09-05 09:37] LABS: ADD UMIC YES; UR AMORPHOUS CRYSTAL FEW /HPF (NONE SEEN); UR ASCORBIC ACID NEGATIVE (NEGATIVE); UR BACTERIA FEW /HPF (NONE SEEN); UR BILIRUBIN (Dip) NEGATIVE (NEGATIVE); UR BLOOD (Dip) 1+ mg/dL (NEGATIVE); UR CLARITY CLOUDY (CLEAR); UR COLOR YELLOW (YELLOW); UR GLUCOSE (Dip) NEGATIVE (NEGATIVE); UR KETONES (Dip) NEGATIVE (NEGATIVE); UR LEUKOCYTE ESTERASE (Dip) 3+ Leu/ul (NEGATIVE); UR NITRITE (Dip) NEGATIVE (NEGATIVE); UR RBC 0 /HPF (0-5); UR SPECIFIC GRAVITY (Dip) 1.015 (1.003-1.030); UR TOTAL PROTEIN (Dip) 2+ mg/dl (NEGATIVE); UR UROBILINOGEN (Dip) NEGATIVE (NEGATIVE); UR WBC 108 /HPF (0-5)
[2017-09-05] MEDS: predniSONE 2.5 MG TAB NGT (17:52)
[2017-09-05] MEDS: MONTELUKAST 10 MG TAB PO (20:46)
[2017-09-05] MEDS: RANITIDINE 150 MG TAB PO (20:46)
[2017-09-06] MEDS: PANTOPRAZOLE 40 MG INJ IV (05:19)
[2017-09-06 07:10] LABS: ADD MAN DIFF? NO
[2017-09-06 07:16] LABS: ABNORMAL IP MESSAGE 1; BASOPHILS % 0.3 % (0.0-2.0); EOSINOPHILS % 0.1 % (0.0-7.0); HEMATOCRIT 29.8 % (37.0-47.0); HEMOGLOBIN 9.6 g/dl (12.0-16.0); LYMPHOCYTES # 0.9 10^3/ul (0.8-2.9); LYMPHOCYTES % 6.8 % (15.0-51.0); MEAN CORPUSCULAR HEMOGLOBIN 30.5 pg (29.0-33.0); MEAN CORPUSCULAR HGB CONC 32.2 g/dl (32.0-37.0); MEAN CORPUSCULAR VOLUME 94.6 fl (82.0-101.0); MONOCYTE # 1.2 10^3/ul (0.3-0.9); MONOCYTES % 9.4 % (0.0-11.0); NEUTROPHIL # 10.1 10^3/ul (1.6-7.5); NEUTROPHILS % 77.1 % (39.0-77.0); NUCLEATED RED BLOOD CELLS # 0.1 10^3/ul (0.0-0.0); NUCLEATED RED BLOOD CELLS% 0.8 /100WBC (0.0-0.0); PLATELET COUNT 148 10^3/UL (140-415); RED BLOOD COUNT 3.15 10^6/ul (4.20-5.40); RED CELL DISTRIBUTION WIDTH 17.3 % (11.5-14.5)
[2017-09-06 07:21] LABS: POSITIVE DIFF @See below
[2017-09-06 07:39] LABS: AMMONIA 109 umol/l (9-30)
[2017-09-06 07:47] LABS: B-TYPE NATRIURETIC PEPTIDE 1430 PG/ML (0-125)
[2017-09-06] MEDS: INSULIN ASPART [NOVOLOG] 3 ML PEN SC ×8 (07:55→22:54)
[2017-09-06 07:59] LABS: ALANINE AMINOTRANSFERASE 147 IU/L (13-69); ALBUMIN 2.5 g/dl (3.3-4.9); ALBUMIN/GLOBULIN RATIO 0.86; ALKALINE PHOSPHATASE 157 IU/L (42-121); ANION GAP 13 (8-16); ASPARTATE AMINO TRANSFERASE 123 IU/L (15-46); BILIRUBIN,INDIRECT 0.3 mg/dl (0-1.1); BILIRUBIN,TOTAL 0.3 mg/dl (0.2-1.3); CARBON DIOXIDE 33 mmol/L (21-31); CHLORIDE 101 mmol/L (97-110); CREATININE 1.53 mg/dl (0.44-1.00); GLUCOSE 58 mg/dl (70-220); MAGNESIUM 2.3 mg/dl (1.7-2.5); POTASSIUM 4.7 mmol/L (3.5-5.1); SODIUM 142 mmol/L (135-144); TOTAL PROTEIN 5.4 g/dl (6.1-8.1)
[2017-09-06] MEDS: INSULIN GLARGINE [LANtus] 3 ML PEN SC (08:00)
[2017-09-06 08:10] LABS: BLOOD UREA NITROGEN 122 mg/dl (7-20)
[2017-09-06] MEDS: NPH, HUMAN INSULIN ISOPHANE 3ML VIAL SC (08:22)
[2017-09-06] MEDS: SUCRALFATE 1 GM TAB PO ×4 (08:25→20:33)
[2017-09-06] MEDS: MAGNESIUM CHLORIDE (SR) 64 MG TAB PO (08:25)
[2017-09-06] MEDS: LACTULOSE 30ML CUP PO ×3 (08:25→21:18)
[2017-09-06] MEDS: FUROSEMIDE 40 MG INJ IV (08:26)
[2017-09-06] MEDS: METOPROLOL 100 MG TAB NGT ×2 (08:27→20:34)
[2017-09-06] MEDS: L ACIDOPHIL/B LACTIS/B LONGUM CAPSULE PO ×2 (08:27→20:33)
[2017-09-06] MEDS: METHYLPREDNISOLONE 40 MG INJ IV (08:27)
[2017-09-06] MEDS: RIFAXIMIN 550 MG TAB PO ×2 (08:27→20:33)
[2017-09-06] MEDS: NYSTATIN/TRIAMCINOLONE 15 GM CR TOP (08:28)
[2017-09-06] MEDS: NYSTATIN 30 GM POWDER BTL TOP ×2 (08:28→20:36)
[2017-09-06] MEDS: BENZOCAINE 20% 0.33 OZ. GEL MM (08:28)
[2017-09-06] MEDS: FLUTICASONE 0.05% 16 GM NAS SPRAY NASAL ×2 (08:28→20:32)
[2017-09-06] MEDS: TIOTROPIUM 18 MCG CAPSULE INHA DEV INH (08:29)
[2017-09-06] MEDS: FLUTICASONE/VILANTEROL 100-25 INH (08:29)
[2017-09-06 08:46] LABS: Allen Test ACCEPTAB; Arterial Fraction of Oxyhgb 96.7 % (93.0-99.0); MODE NASAL CANNULA
[2017-09-06] MEDS: ALBUTEROL 0.083% (NEB) 2.5 MG/3 ML AMP HHN ×4 (09:10→20:46)
[2017-09-06] MEDS: SOD CHLORIDE 0.45% 1,000 ML IV ×2 (13:38→22:56)
[2017-09-06 15:34] LABS: Allen Test ACCEPTAB; Arterial Base Excess 2.7 mmol/L (-3.0-3); Arterial Blood Gas Oxygen Sat 96.5 mmHG (95.0-100.0); Arterial COHb 0 % (0.0-3.0); Arterial HCO3 30.1 mmol/L (22.0-26.0); Arterial MetHb 0.5 % (0.0-1.5); Arterial Total Hemglobin 11.5 g/dl (12.0-18.0); Arterial pCO2 60.1 mmhg (35-45); Blood Gas IEPAP 15/5; Blood Gas PS 10; MODE MASK - BIPAP; Site Left Radial
[2017-09-06 15:49] LABS: AADO2 Arterial 47.3 mmHg (7.0-24.0); Arterial Base Excess 13.4 mmol/L (-3.0-3); Arterial Blood Gas Oxygen Sat 96.9 mmHG (95.0-100.0); Arterial COHb 0.1 % (0.0-3.0); Arterial HCO3 38.2 mmol/L (22.0-26.0); Arterial MetHb 0.1 % (0.0-1.5); Arterial Total Hemglobin 11.1 g/dl (12.0-18.0); Arterial pCO2 49.8 mmhg (35-45); Site Left Radial
[2017-09-06] MEDS: predniSONE 2.5 MG TAB NGT (17:35)
[2017-09-06] MEDS: RANITIDINE 150 MG TAB PO (20:33)
[2017-09-06] MEDS: MONTELUKAST 10 MG TAB PO (20:33)
[2017-09-07] MEDS: INSULIN ASPART [NOVOLOG] 3 ML PEN SC ×8 (00:43→21:36)
[2017-09-07] MEDS: PANTOPRAZOLE 40 MG INJ IV (06:38)
[2017-09-07] MEDS: SUCRALFATE 1 GM TAB PO ×4 (06:38→20:50)
[2017-09-07] MEDS: LACTULOSE 30ML CUP PO ×3 (06:38→21:29)
[2017-09-07 07:27] LABS: AADO2 Arterial 34.2 mmHg (7.0-24.0); Allen Test ACCEPTAB; Arterial Base Excess 3.7 mmol/L (-3.0-3); Arterial Blood Gas Oxygen Sat 98.1 mmHG (95.0-100.0); Arterial COHb 0.1 % (0.0-3.0); Arterial Fraction of Oxyhgb 97.6 % (93.0-99.0); Arterial HCO3 29.8 mmol/L (22.0-26.0); Arterial MetHb 0.4 % (0.0-1.5); Arterial Total Hemglobin 11.1 g/dl (12.0-18.0); Arterial pCO2 52.2 mmhg (35-45); Blood Gas IEPAP 20/8; MODE MASK - BIPAP; Site Right Radial
[2017-09-07] MEDS: NPH, HUMAN INSULIN ISOPHANE 3ML VIAL SC (08:08)
[2017-09-07] MEDS: INSULIN GLARGINE [LANtus] 3 ML PEN SC (08:11)
[2017-09-07] MEDS: METHYLPREDNISOLONE 40 MG INJ IV (08:24)
[2017-09-07] MEDS: MAGNESIUM CHLORIDE (SR) 64 MG TAB PO (08:25)
[2017-09-07] MEDS: FUROSEMIDE 40 MG INJ IV ×2 (08:25→23:47)
[2017-09-07] MEDS: L ACIDOPHIL/B LACTIS/B LONGUM CAPSULE PO ×2 (08:26→20:51)
[2017-09-07] MEDS: RIFAXIMIN 550 MG TAB PO ×2 (08:26→20:50)
[2017-09-07] MEDS: METOPROLOL 100 MG TAB NGT ×2 (08:27→20:51)
[2017-09-07] MEDS: TIOTROPIUM 18 MCG CAPSULE INHA DEV INH (08:27)
[2017-09-07] MEDS: FLUTICASONE/VILANTEROL 100-25 INH (08:28)
[2017-09-07] MEDS: NYSTATIN/TRIAMCINOLONE 15 GM CR TOP (08:28)
[2017-09-07] MEDS: FLUTICASONE 0.05% 16 GM NAS SPRAY NASAL ×2 (08:28→20:50)
[2017-09-07] MEDS: NYSTATIN 30 GM POWDER BTL TOP ×2 (08:28→20:50)
[2017-09-07 09:00] LABS: ABNORMAL IP MESSAGE 1; HEMATOCRIT 29.2 % (37.0-47.0); HEMOGLOBIN 9.2 g/dl (12.0-16.0); MEAN CORPUSCULAR HEMOGLOBIN 30.2 pg (29.0-33.0); MEAN CORPUSCULAR HGB CONC 31.5 g/dl (32.0-37.0); MEAN CORPUSCULAR VOLUME 95.7 fl (82.0-101.0); MEAN PLATELET VOLUME 11.5 fl (7.4-10.4); NUCLEATED RED BLOOD CELLS% 0.2 /100WBC (0.0-0.0); PLATELET COUNT 104 10^3/UL (140-415); RED BLOOD COUNT 3.05 10^6/ul (4.20-5.40); RED CELL DISTRIBUTION WIDTH 17.7 % (11.5-14.5)
[2017-09-07 09:00] LABS: WHITE BLOOD COUNT 24.9 10^3/ul (4.8-10.8)
[2017-09-07] MEDS: ALBUTEROL 0.083% (NEB) 2.5 MG/3 ML AMP HHN ×4 (09:00→21:24)
[2017-09-07 09:10] LABS: ADD MAN DIFF? YES; POSITIVE DIFF @See below
[2017-09-07 09:29] LABS: ALANINE AMINOTRANSFERASE 148 IU/L (13-69); ALBUMIN 2.2 g/dl (3.3-4.9); ALBUMIN/GLOBULIN RATIO 0.73; ALKALINE PHOSPHATASE 154 IU/L (42-121); ANION GAP 11 (8-16); ASPARTATE AMINO TRANSFERASE 129 IU/L (15-46); BILIRUBIN,INDIRECT 0.4 mg/dl (0-1.1); BILIRUBIN,TOTAL 0.4 mg/dl (0.2-1.3); BLOOD UREA NITROGEN 113 mg/dl (7-20); CARBON DIOXIDE 28 mmol/L (21-31); CHLORIDE 100 mmol/L (97-110); CREATININE 1.53 mg/dl (0.44-1.00); GLUCOSE 241 mg/dl (70-220); POTASSIUM 4.6 mmol/L (3.5-5.1); SODIUM 134 mmol/L (135-144); TOTAL PROTEIN 5.2 g/dl (6.1-8.1)
[2017-09-07 09:32] LABS: AMMONIA 38 umol/l (9-30)
[2017-09-07 12:04] LABS: ANISOCYTOSIS 1+ (0-0); BAND NEUTROPHILS #M 4.9 10^3/ul (0.0-0.6); BAND NEUTROPHILS % (M) 20 % (0-4); LYMPHOCYTES #M 0.4 10^3/ul (0.8-2.9); LYMPHOCYTES % (M) 2 % (15-51); MONOCYTE #M 0.9 10^3/ul (0.3-0.9); MONOCYTES % (M) 4 % (0-11); POIKILOCYTOSIS 1+ (0-0); SEG NEUT #M 19.6 10^3/ul (1.6-7.5); SEGMENTED NEUTROPHILS (M) % 74 % (39-77); SMUDGE%M 18 % (0-0)
[2017-09-07] MEDS: predniSONE 2.5 MG TAB NGT (16:56)
[2017-09-07] MEDS: MONTELUKAST 10 MG TAB PO (20:51)
[2017-09-07] MEDS: RANITIDINE 150 MG TAB PO (20:52)
[2017-09-08] MEDS: ACETAMINOPHEN 325 MG TAB PO (03:55)
[2017-09-08 05:11] LABS: ADD MAN DIFF? NO
[2017-09-08 05:22] LABS: ABNORMAL IP MESSAGE 1; BASOPHILS % 0.1 % (0.0-2.0); HEMATOCRIT 30.2 % (37.0-47.0); HEMOGLOBIN 9.6 g/dl (12.0-16.0); LYMPHOCYTES # 0.3 10^3/ul (0.8-2.9); LYMPHOCYTES % 1.6 % (15.0-51.0); MEAN CORPUSCULAR HEMOGLOBIN 30.1 pg (29.0-33.0); MEAN CORPUSCULAR HGB CONC 31.8 g/dl (32.0-37.0); MEAN CORPUSCULAR VOLUME 94.7 fl (82.0-101.0); MEAN PLATELET VOLUME 11.9 fl (7.4-10.4); MONOCYTES % 4.8 % (0.0-11.0); NEUTROPHIL # 19.8 10^3/ul (1.6-7.5); NEUTROPHILS % 92.2 % (39.0-77.0); NUCLEATED RED BLOOD CELLS # 0.1 10^3/ul (0.0-0.0); NUCLEATED RED BLOOD CELLS% 0.5 /100WBC (0.0-0.0); PLATELET COUNT 115 10^3/UL (140-415); RED BLOOD COUNT 3.19 10^6/ul (4.20-5.40); RED CELL DISTRIBUTION WIDTH 17.8 % (11.5-14.5)
[2017-09-08 05:22] LABS: WHITE BLOOD COUNT 21.4 10^3/ul (4.8-10.8)
[2017-09-08 05:27] LABS: POSITIVE DIFF @See below
[2017-09-08 05:50] LABS: ALANINE AMINOTRANSFERASE 163 IU/L (13-69); ALBUMIN 2.6 g/dl (3.3-4.9); ALBUMIN/GLOBULIN RATIO 0.78; ALKALINE PHOSPHATASE 189 IU/L (42-121); ANION GAP 13 (8-16); ASPARTATE AMINO TRANSFERASE 133 IU/L (15-46); B-TYPE NATRIURETIC PEPTIDE 1430 PG/ML (0-125); BILIRUBIN,INDIRECT 0.4 mg/dl (0-1.1); BILIRUBIN,TOTAL 0.4 mg/dl (0.2-1.3); CARBON DIOXIDE 29 mmol/L (21-31); CHLORIDE 101 mmol/L (97-110); CREATININE 1.85 mg/dl (0.44-1.00); GLUCOSE 262 mg/dl (70-220); POTASSIUM 5.3 mmol/L (3.5-5.1); SODIUM 138 mmol/L (135-144); TOTAL PROTEIN 5.9 g/dl (6.1-8.1)
[2017-09-08] MEDS: ALBUTEROL 0.083% (NEB) 2.5 MG/3 ML AMP HHN ×4 (06:10→20:20)
[2017-09-08 06:33] LABS: BLOOD UREA NITROGEN 128 mg/dl (7-20)
[2017-09-08] MEDS: PANTOPRAZOLE 40 MG INJ IV (06:36)
[2017-09-08] MEDS: SUCRALFATE 1 GM TAB PO ×4 (06:36→20:33)
[2017-09-08] MEDS: METOPROLOL 100 MG TAB NGT ×2 (08:10→20:32)
[2017-09-08] MEDS: L ACIDOPHIL/B LACTIS/B LONGUM CAPSULE PO ×2 (08:11→20:34)
[2017-09-08] MEDS: MAGNESIUM CHLORIDE (SR) 64 MG TAB PO (08:11)
[2017-09-08] MEDS: RIFAXIMIN 550 MG TAB PO ×2 (08:12→20:33)
[2017-09-08] MEDS: TIOTROPIUM 18 MCG CAPSULE INHA DEV INH (08:12)
[2017-09-08] MEDS: METHYLPREDNISOLONE 40 MG INJ IV (08:13)
[2017-09-08] MEDS: FUROSEMIDE 40 MG INJ IV (08:14)
[2017-09-08] MEDS: FLUTICASONE 0.05% 16 GM NAS SPRAY NASAL ×2 (08:16→20:34)
[2017-09-08] MEDS: LACTULOSE 30ML CUP PO ×2 (08:16→17:09)
[2017-09-08] MEDS: INSULIN GLARGINE [LANtus] 3 ML PEN SC (08:33)
[2017-09-08] MEDS: INSULIN ASPART [NOVOLOG] 3 ML PEN SC ×7 (08:33→20:32)
[2017-09-08] MEDS: NPH, HUMAN INSULIN ISOPHANE 3ML VIAL SC (08:33)
[2017-09-08] MEDS: FLUTICASONE/VILANTEROL 100-25 INH (08:35)
[2017-09-08] MEDS: NYSTATIN 30 GM POWDER BTL TOP ×2 (08:35→20:32)
[2017-09-08] MEDS: NYSTATIN/TRIAMCINOLONE 15 GM CR TOP (08:36)
[2017-09-08] MEDS: BUMETANIDE 1 MG INJ IV (12:51)
[2017-09-08 13:57] LABS: AMMONIA 85 umol/l (9-30)
[2017-09-08] MEDS: predniSONE 2.5 MG TAB NGT (17:09)
[2017-09-08] MEDS: DEXTROSE 50% 50 ML SYRINGE IV (17:15)
[2017-09-08] MEDS: RANITIDINE 150 MG TAB PO (20:34)
[2017-09-08] MEDS: MONTELUKAST 10 MG TAB PO (20:34)
[2017-09-09 03:08] LABS: AADO2 Arterial 66.7 mmHg (7.0-24.0); Arterial Base Excess -3.3 mmol/L (-3.0-3); Arterial Blood Gas Oxygen Sat 93.4 mmHG (95.0-100.0); Arterial COHb 0.3 % (0.0-3.0); Arterial Fraction of Oxyhgb 92.8 % (93.0-99.0); Arterial HCO3 24.8 mmol/L (22.0-26.0); Arterial MetHb 0.3 % (0.0-1.5); Arterial Total Hemglobin 11.6 g/dl (12.0-18.0); Arterial pCO2 59.3 mmhg (35-45); Blood Gas IEPAP 20/8; MODE MASK - BIPAP; Site Right Radial
[2017-09-09] MEDS: ALBUMIN HUMAN 25% 100 ML IV ×3 (04:03→17:03)
[2017-09-09 05:04] LABS: AADO2 Arterial 61.2 mmHg (7.0-24.0); Allen Test ACCEPTAB; Arterial Base Excess -6.3 mmol/L (-3.0-3); Arterial Blood Gas Oxygen Sat 98.6 mmHG (95.0-100.0); Arterial COHb 0.6 % (0.0-3.0); Arterial Fraction of Oxyhgb 97.5 % (93.0-99.0); Arterial HCO3 22.6 mmol/L (22.0-26.0); Arterial MetHb 0.5 % (0.0-1.5); Arterial Total Hemglobin 11.1 g/dl (12.0-18.0); Arterial pCO2 62.3 mmhg (35-45); Blood Gas IEPAP 25/5; Blood Gas PS 20; MODE MASK - BIPAP; Site Right Radial
[2017-09-09] MEDS ORDERED: PROPOFOL 100 ML (05:33)
[2017-09-09 06:08] LABS: ABNORMAL IP MESSAGE 1; HEMATOCRIT 30.3 % (37.0-47.0); HEMOGLOBIN 9.6 g/dl (12.0-16.0); MEAN CORPUSCULAR HGB CONC 31.7 g/dl (32.0-37.0); MEAN CORPUSCULAR VOLUME 94.7 fl (82.0-101.0); NUCLEATED RED BLOOD CELLS% 0.9 /100WBC (0.0-0.0); PLATELET COUNT 83 10^3/UL (140-415); RED CELL DISTRIBUTION WIDTH 18.5 % (11.5-14.5)
[2017-09-09 06:08] LABS: WHITE BLOOD COUNT 14.9 10^3/ul (4.8-10.8)
[2017-09-09 06:12] LABS: ADD MAN DIFF? YES; POSITIVE DIFF @See below
[2017-09-09] MEDS: PANTOPRAZOLE 40 MG INJ IV (06:23)
[2017-09-09] MEDS: PROPOFOL 100 ML IV ×3 (06:24→22:41)
[2017-09-09] MEDS ORDERED: NORepinephrine 8MG/250 ML (PMX 250 ML (06:35)
[2017-09-09 06:44] LABS: AADO2 Arterial 213.7 mmHg (7.0-24.0); Allen Test ACCEPTAB; Arterial Base Excess -2.4 mmol/L (-3.0-3); Arterial COHb 0.1 % (0.0-3.0); Arterial Fraction of Oxyhgb 95.5 % (93.0-99.0); Arterial HCO3 24.1 mmol/L (22.0-26.0); Arterial MetHb 0.4 % (0.0-1.5); Arterial Total Hemglobin 10.3 g/dl (12.0-18.0); Arterial pCO2 49.6 mmhg (35-45); MODE VENT - AC; Site Right Radial
[2017-09-09 06:49] LABS: ALANINE AMINOTRANSFERASE 147 IU/L (13-69); ALBUMIN 2.9 g/dl (3.3-4.9); ALBUMIN/GLOBULIN RATIO 0.96; ALKALINE PHOSPHATASE 193 IU/L (42-121); ANION GAP 17 (8-16); ASPARTATE AMINO TRANSFERASE 137 IU/L (15-46); BILIRUBIN,INDIRECT 0.4 mg/dl (0-1.1); BILIRUBIN,TOTAL 0.4 mg/dl (0.2-1.3); CALCIUM 9.1 mg/dl (8.4-10.2); CARBON DIOXIDE 25 mmol/L (21-31); CHLORIDE 101 mmol/L (97-110); CREATININE 2.18 mg/dl (0.44-1.00); GLUCOSE 239 mg/dl (70-220); SODIUM 137 mmol/L (135-144); TOTAL PROTEIN 5.9 g/dl (6.1-8.1)
[2017-09-09 06:52] LABS: AMMONIA 105 umol/l (9-30)
[2017-09-09] MEDS: NORepinephrine 8MG/250 ML (PMX 250 ML IV (06:53)
[2017-09-09 06:55] LABS: B-TYPE NATRIURETIC PEPTIDE 2060 PG/ML (0-125)
[2017-09-09 06:56] LABS: BLOOD UREA NITROGEN 139 mg/dl (7-20)
[2017-09-09 06:59] LABS: POTASSIUM 5.6 mmol/L (3.5-5.1)
[2017-09-09] MEDS ORDERED: SUCCINYLCHOLINE CHLORIDE 100 MG/5 ML SYG IV (07:00)
[2017-09-09] MEDS: SUCRALFATE 1 GM TAB PO ×5 (07:05→21:13)
[2017-09-09] MEDS: METOPROLOL 100 MG TAB NGT ×2 (08:00→21:00)
[2017-09-09] MEDS: INSULIN ASPART [NOVOLOG] 3 ML PEN SC ×7 (08:20→21:00)
[2017-09-09] MEDS: INSULIN GLARGINE [LANtus] 3 ML PEN SC (08:23)
[2017-09-09] MEDS: FLUTICASONE/VILANTEROL 100-25 INH (08:31)
[2017-09-09] MEDS: TIOTROPIUM 18 MCG CAPSULE INHA DEV INH (08:32)
[2017-09-09] MEDS: FLUTICASONE 0.05% 16 GM NAS SPRAY NASAL ×2 (09:00→21:14)
[2017-09-09] MEDS: LACTULOSE 30ML CUP PO (09:00)
[2017-09-09] MEDS: FUROSEMIDE 40 MG INJ IV (09:54)
[2017-09-09] MEDS: METHYLPREDNISOLONE 40 MG INJ IV (09:55)
[2017-09-09] MEDS: L ACIDOPHIL/B LACTIS/B LONGUM CAPSULE PO ×2 (09:55→21:14)
[2017-09-09] MEDS: LACTULOSE 30ML CUP NGT ×3 (09:55→21:13)
[2017-09-09] MEDS: ALBUTEROL HFA 8 GM INHALER INH ×4 (09:57→20:02)
[2017-09-09] MEDS: NPH, HUMAN INSULIN ISOPHANE 3ML VIAL SC (10:02)
[2017-09-09 10:03] LABS: ANISOCYTOSIS 2+ (0-0); BAND NEUTROPHILS #M 2.2 10^3/ul (0.0-0.6); BAND NEUTROPHILS % (M) 15 % (0-4); GIANT THROMBO% (M) 1 % (0-0); LYMPHOCYTES #M 0.7 10^3/ul (0.8-2.9); LYMPHOCYTES % (M) 5 % (15-51); MONOCYTE #M 0.4 10^3/ul (0.3-0.9); MONOCYTES % (M) 3 % (0-11); PLATELET ESTIMATE SIG DECREASED; POIKILOCYTOSIS 1+ (0-0); SEG NEUT #M 11.8 10^3/ul (1.6-7.5); SEGMENTED NEUTROPHILS (M) % 77 % (39-77); SMUDGE%M 2 % (0-0)
[2017-09-09] MEDS: BUMETANIDE 12 MG in DEXTROSE 5% 72 ML IV (12:28)
[2017-09-09] MEDS: NYSTATIN 30 GM POWDER BTL TOP ×2 (12:28→21:14)
[2017-09-09] MEDS: NYSTATIN/TRIAMCINOLONE 15 GM CR TOP (12:29)
[2017-09-09] MEDS: RIFAXIMIN 550 MG TAB PO ×2 (12:29→21:18)
[2017-09-09 12:59] LABS: IRON 36 ug/dl (35-150)
[2017-09-09] MEDS ORDERED: MEROPENEM 1 GM/50ML(PMX) 50 ML IVPB (13:00)
[2017-09-09 13:09] LABS: % IRON SATURATION 14 % SAT (22-52); TOTAL IRON BINDING CAPACITY 264 ug/dl (241-421)
[2017-09-09] MEDS: ENOXAPARIN 40 MG/0.4 ML SYG SC (13:44)
[2017-09-09] MEDS: MEROPENEM 500MG/50 ML (PMX) 50 ML IVPB ×2 (13:56→22:48)
[2017-09-09 14:06] LABS: ADD UMIC YES; UR ASCORBIC ACID NEGATIVE (NEGATIVE); UR BACTERIA FEW /HPF (NONE SEEN); UR BILIRUBIN (Dip) NEGATIVE (NEGATIVE); UR BLOOD (Dip) NEGATIVE (NEGATIVE); UR CLARITY SLIGHTLY CLOUDY (CLEAR); UR COLOR YELLOW (YELLOW); UR GLUCOSE (Dip) NEGATIVE (NEGATIVE); UR KETONES (Dip) NEGATIVE (NEGATIVE); UR LEUKOCYTE ESTERASE (Dip) 1+ Leu/ul (NEGATIVE); UR NITRITE (Dip) NEGATIVE (NEGATIVE); UR RBC 28 /HPF (0-5); UR SPECIFIC GRAVITY (Dip) 1.013 (1.003-1.030); UR TOTAL PROTEIN (Dip) 1+ mg/dl (NEGATIVE); UR UROBILINOGEN (Dip) NEGATIVE (NEGATIVE); UR WBC 8 /HPF (0-5)
[2017-09-09 14:28] LABS: CREATININE,URINE RANDOM 51.16 mg/dl (20-320); PROTEIN/CREAT RATIO 0.76 RATIO
[2017-09-09] MEDS: predniSONE 2.5 MG TAB NGT (17:04)
[2017-09-09 18:30] LABS: POTASSIUM 5.3 mmol/L (3.5-5.1)
[2017-09-09] MEDS: MONTELUKAST 10 MG TAB PO (21:13)
[2017-09-09] MEDS: RANITIDINE 150 MG TAB PO (21:13)
[2017-09-10] MEDS: ALBUMIN HUMAN 25% 100 ML IV (00:31)
[2017-09-10] MEDS: PROPOFOL 100 ML IV ×3 (04:40→22:17)
[2017-09-10 05:02] LABS: WHITE BLOOD COUNT 11.7 10^3/ul (4.8-10.8)
[2017-09-10 05:02] LABS: ABNORMAL IP MESSAGE 1; ADD MAN DIFF? NO; BASOPHILS % 0.3 % (0.0-2.0); HEMATOCRIT 24.9 % (37.0-47.0); HEMOGLOBIN 8.4 g/dl (12.0-16.0); LYMPHOCYTES # 0.5 10^3/ul (0.8-2.9); LYMPHOCYTES % 4.3 % (15.0-51.0); MEAN CORPUSCULAR HEMOGLOBIN 31.1 pg (29.0-33.0); MEAN CORPUSCULAR HGB CONC 33.7 g/dl (32.0-37.0); MEAN CORPUSCULAR VOLUME 92.2 fl (82.0-101.0); MEAN PLATELET VOLUME 12.4 fl (7.4-10.4); MONOCYTE # 0.7 10^3/ul (0.3-0.9); NEUTROPHIL # 10.2 10^3/ul (1.6-7.5); NEUTROPHILS % 87.3 % (39.0-77.0); NUCLEATED RED BLOOD CELLS # 0.1 10^3/ul (0.0-0.0); NUCLEATED RED BLOOD CELLS% 1.1 /100WBC (0.0-0.0); PLATELET COUNT 64 10^3/UL (140-415); RED CELL DISTRIBUTION WIDTH 18.6 % (11.5-14.5)
[2017-09-10 05:17] LABS: POSITIVE DIFF @See below
[2017-09-10 05:33] LABS: ALANINE AMINOTRANSFERASE 113 IU/L (13-69); ALBUMIN 3.5 g/dl (3.3-4.9); ALBUMIN/GLOBULIN RATIO 1.34; ALKALINE PHOSPHATASE 146 IU/L (42-121); ANION GAP 16 (8-16); ASPARTATE AMINO TRANSFERASE 107 IU/L (15-46); BILIRUBIN,INDIRECT 0.5 mg/dl (0-1.1); BILIRUBIN,TOTAL 0.8 mg/dl (0.2-1.3); CALCIUM 9.5 mg/dl (8.4-10.2); CARBON DIOXIDE 29 mmol/L (21-31); CHLORIDE 102 mmol/L (97-110); CREATININE 2.34 mg/dl (0.44-1.00); GLUCOSE 82 mg/dl (70-220); MAGNESIUM 2.7 mg/dl (1.7-2.5); PHOSPHORUS 5.9 mg/dl (2.5-4.9); POTASSIUM 5.3 mmol/L (3.5-5.1); SODIUM 142 mmol/L (135-144); TOTAL PROTEIN 6.1 g/dl (6.1-8.1)
[2017-09-10 05:34] LABS: B-TYPE NATRIURETIC PEPTIDE 3790 PG/ML (0-125)
[2017-09-10 05:42] LABS: BLOOD UREA NITROGEN 151 mg/dl (7-20)
[2017-09-10] MEDS: PANTOPRAZOLE 40 MG INJ IV (06:40)
[2017-09-10] MEDS: INSULIN ASPART [NOVOLOG] 3 ML PEN SC ×6 (07:35→21:23)
[2017-09-10 07:55] LABS: AADO2 Arterial 240.8 mmHg (7.0-24.0); Allen Test ACCEPTAB; Arterial Base Excess 2.2 mmol/L (-3.0-3); Arterial Blood Gas Oxygen Sat 92.1 mmHG (95.0-100.0); Arterial COHb 0.7 % (0.0-3.0); Arterial Fraction of Oxyhgb 91.1 % (93.0-99.0); Arterial MetHb 0.4 % (0.0-1.5); Arterial Total Hemglobin 8.6 g/dl (12.0-18.0); Arterial pCO2 42.9 mmhg (35-45); MODE VENT - AC; Site Left Radial
[2017-09-10] MEDS: LACTULOSE 30ML CUP NGT ×3 (08:43→21:13)
[2017-09-10] MEDS: MEROPENEM 500MG/50 ML (PMX) 50 ML IVPB ×2 (08:43→21:14)
[2017-09-10] MEDS: LACTULOSE 30ML CUP PO (08:43)
[2017-09-10] MEDS: METHYLPREDNISOLONE 40 MG INJ IV ×3 (08:43→21:18)
[2017-09-10] MEDS: SUCRALFATE 1 GM TAB PO ×4 (08:44→21:14)
[2017-09-10] MEDS: METOPROLOL 100 MG TAB NGT ×2 (08:44→21:14)
[2017-09-10] MEDS: RIFAXIMIN 550 MG TAB PO ×2 (08:44→21:14)
[2017-09-10] MEDS: L ACIDOPHIL/B LACTIS/B LONGUM CAPSULE PO ×2 (08:44→21:13)
[2017-09-10] MEDS: FLUTICASONE 0.05% 16 GM NAS SPRAY NASAL ×2 (08:45→21:15)
[2017-09-10] MEDS: NYSTATIN 30 GM POWDER BTL TOP ×2 (08:45→21:15)
[2017-09-10] MEDS: NYSTATIN/TRIAMCINOLONE 15 GM CR TOP (08:45)
[2017-09-10] MEDS: FLUTICASONE/VILANTEROL 100-25 INH (09:00)
[2017-09-10] MEDS: TIOTROPIUM 18 MCG CAPSULE INHA DEV INH (09:00)
[2017-09-10] MEDS: ENOXAPARIN 30 MG/0.3 ML SYG SC (09:41)
[2017-09-10] MEDS: INSULIN GLARGINE [LANtus] 3 ML PEN SC (09:42)
[2017-09-10] MEDS: NPH, HUMAN INSULIN ISOPHANE 3ML VIAL SC ×2 (09:43→21:25)
[2017-09-10] MEDS: ALBUTEROL HFA 8 GM INHALER INH ×4 (09:49→20:47)
[2017-09-10] MEDS: BUMETANIDE 12 MG in DEXTROSE 5% 72 ML IV ×2 (10:47→22:17)
[2017-09-10] MEDS: DEXTROSE 5% 1,000 ML IV (10:47)
[2017-09-10 13:09] LABS: AMMONIA 82 umol/l (9-30)
[2017-09-10] MEDS: RANITIDINE 150 MG TAB PO (21:13)
[2017-09-10] MEDS: MONTELUKAST 10 MG TAB PO (21:13)
[2017-09-11] MEDS: PROPOFOL 100 ML IV ×6 (04:44→23:15)
[2017-09-11 05:19] LABS: ADD MAN DIFF? NO
[2017-09-11 05:22] LABS: WHITE BLOOD COUNT 12.8 10^3/ul (4.8-10.8)
[2017-09-11 05:22] LABS: ABNORMAL IP MESSAGE 1; BASOPHILS % 0.2 % (0.0-2.0); HEMATOCRIT 25.3 % (37.0-47.0); HEMOGLOBIN 8.5 g/dl (12.0-16.0); LYMPHOCYTES # 0.4 10^3/ul (0.8-2.9); LYMPHOCYTES % 2.9 % (15.0-51.0); MEAN CORPUSCULAR HEMOGLOBIN 30.7 pg (29.0-33.0); MEAN CORPUSCULAR HGB CONC 33.6 g/dl (32.0-37.0); MEAN CORPUSCULAR VOLUME 91.3 fl (82.0-101.0); MEAN PLATELET VOLUME 12.7 fl (7.4-10.4); MONOCYTE # 0.9 10^3/ul (0.3-0.9); MONOCYTES % 6.7 % (0.0-11.0); NEUTROPHIL # 11.1 10^3/ul (1.6-7.5); NEUTROPHILS % 86.2 % (39.0-77.0); NUCLEATED RED BLOOD CELLS # 0.2 10^3/ul (0.0-0.0); NUCLEATED RED BLOOD CELLS% 1.9 /100WBC (0.0-0.0); PLATELET COUNT 85 10^3/UL (140-415); RED BLOOD COUNT 2.77 10^6/ul (4.20-5.40)
[2017-09-11 05:30] LABS: AMMONIA 13 umol/l (9-30)
[2017-09-11 05:53] LABS: POSITIVE DIFF @See below
[2017-09-11] MEDS: PANTOPRAZOLE 40 MG INJ IV (06:01)
[2017-09-11] MEDS: METHYLPREDNISOLONE 40 MG INJ IV ×3 (06:01→22:19)
[2017-09-11] MEDS: NPH, HUMAN INSULIN ISOPHANE 3ML VIAL SC ×3 (06:05→22:25)
[2017-09-11 06:11] LABS: ALANINE AMINOTRANSFERASE 121 IU/L (13-69); ALBUMIN 3.1 g/dl (3.3-4.9); ALBUMIN/GLOBULIN RATIO 1.19; ALKALINE PHOSPHATASE 182 IU/L (42-121); ANION GAP 15 (8-16); ASPARTATE AMINO TRANSFERASE 130 IU/L (15-46); BILIRUBIN,INDIRECT 0.5 mg/dl (0-1.1); BILIRUBIN,TOTAL 1.2 mg/dl (0.2-1.3); CALCIUM 9.1 mg/dl (8.4-10.2); CARBON DIOXIDE 29 mmol/L (21-31); CHLORIDE 99 mmol/L (97-110); CREATININE 2.26 mg/dl (0.44-1.00); GLUCOSE 275 mg/dl (70-220); MAGNESIUM 2.6 mg/dl (1.7-2.5); PHOSPHORUS 6.3 mg/dl (2.5-4.9); SODIUM 138 mmol/L (135-144); TOTAL PROTEIN 5.7 g/dl (6.1-8.1)
[2017-09-11 07:03] LABS: BLOOD UREA NITROGEN 156 mg/dl (7-20)
[2017-09-11] MEDS ORDERED: INSULIN GLARGINE [LANTus] (100 UNITS/ML) SYG SC (08:00)
[2017-09-11] MEDS ORDERED: INSULIN GLARGINE [LANtus] 3 ML PEN SC (08:00)
[2017-09-11] MEDS: RIFAXIMIN 550 MG TAB PO ×2 (08:20→20:10)
[2017-09-11] MEDS: METOPROLOL 100 MG TAB NGT ×2 (08:20→20:19)
[2017-09-11] MEDS: TIOTROPIUM 18 MCG CAPSULE INHA DEV INH (08:21)
[2017-09-11] MEDS: L ACIDOPHIL/B LACTIS/B LONGUM CAPSULE PO ×2 (08:21→20:09)
[2017-09-11] MEDS: SUCRALFATE 1 GM TAB PO ×4 (08:21→20:10)
[2017-09-11] MEDS: MEROPENEM 500MG/50 ML (PMX) 50 ML IVPB ×2 (08:21→20:43)
[2017-09-11] MEDS: FLUTICASONE/VILANTEROL 100-25 INH (08:21)
[2017-09-11] MEDS: LACTULOSE 30ML CUP PO (08:22)
[2017-09-11] MEDS: LACTULOSE 30ML CUP NGT ×3 (08:22→20:09)
[2017-09-11] MEDS: NYSTATIN/TRIAMCINOLONE 15 GM CR TOP (08:30)
[2017-09-11] MEDS: NYSTATIN 30 GM POWDER BTL TOP ×2 (08:30→20:21)
[2017-09-11] MEDS: FLUTICASONE 0.05% 16 GM NAS SPRAY NASAL ×2 (08:30→20:19)
[2017-09-11] MEDS: ALBUTEROL HFA 8 GM INHALER INH ×5 (09:00→21:28)
[2017-09-11] MEDS ORDERED: NPH, HUMAN INSULIN ISOPHANE 3ML VIAL SC (09:00)
[2017-09-11] MEDS: INSULIN ASPART [NOVOLOG] 3 ML PEN SC ×4 (09:10→20:50)
[2017-09-11 09:20] LABS: OCCULT BLOOD STOOL POSITIVE (NEGATIVE)
[2017-09-11] MEDS: BUMETANIDE 12 MG in DEXTROSE 5% 72 ML IV ×2 (11:23→22:19)
[2017-09-11 12:46] LABS: HEMATOCRIT 25.3 % (37.0-47.0)
[2017-09-11] MEDS: ALBUMIN HUMAN 25% 50 ML IV ×2 (16:21→23:14)
[2017-09-11] MEDS: MONTELUKAST 10 MG TAB PO (20:10)
[2017-09-11] MEDS: RANITIDINE 150 MG TAB PO (20:10)
[2017-09-12] MEDS: PROPOFOL 100 ML IV ×3 (03:25→20:49)
[2017-09-12 05:32] LABS: ABNORMAL IP MESSAGE 1; HEMATOCRIT 22.2 % (37.0-47.0); HEMOGLOBIN 7.7 g/dl (12.0-16.0); MEAN CORPUSCULAR HEMOGLOBIN 32.1 pg (29.0-33.0); MEAN CORPUSCULAR HGB CONC 34.7 g/dl (32.0-37.0); MEAN CORPUSCULAR VOLUME 92.5 fl (82.0-101.0); MEAN PLATELET VOLUME 12.5 fl (7.4-10.4); NUCLEATED RED BLOOD CELLS% 0.9 /100WBC (0.0-0.0); PLATELET COUNT 58 10^3/UL (140-415); RED CELL DISTRIBUTION WIDTH 18.2 % (11.5-14.5)
[2017-09-12 05:32] LABS: WHITE BLOOD COUNT 13.2 10^3/ul (4.8-10.8)
[2017-09-12 05:37] LABS: ADD MAN DIFF? YES; POSITIVE DIFF @See below
[2017-09-12 06:02] LABS: ALANINE AMINOTRANSFERASE 103 IU/L (13-69); ALBUMIN 2.6 g/dl (3.3-4.9); ALBUMIN/GLOBULIN RATIO 1.13; ALKALINE PHOSPHATASE 157 IU/L (42-121); ANION GAP 15 (8-16); ASPARTATE AMINO TRANSFERASE 99 IU/L (15-46); BILIRUBIN,INDIRECT 0.2 mg/dl (0-1.1); BILIRUBIN,TOTAL 0.9 mg/dl (0.2-1.3); CALCIUM 8.3 mg/dl (8.4-10.2); CARBON DIOXIDE 25 mmol/L (21-31); CHLORIDE 95 mmol/L (97-110); GLUCOSE 274 mg/dl (70-220); MAGNESIUM 2.5 mg/dl (1.7-2.5); PHOSPHORUS 5.8 mg/dl (2.5-4.9); POTASSIUM 4.3 mmol/L (3.5-5.1); SODIUM 131 mmol/L (135-144); TOTAL PROTEIN 4.9 g/dl (6.1-8.1)
[2017-09-12] MEDS: METHYLPREDNISOLONE 40 MG INJ IV ×3 (06:02→21:45)
[2017-09-12] MEDS: PANTOPRAZOLE 40 MG INJ IV (06:02)
[2017-09-12] MEDS: NPH, HUMAN INSULIN ISOPHANE 3ML VIAL SC ×3 (06:06→21:48)
[2017-09-12] MEDS: SUCRALFATE 1 GM TAB PO ×4 (06:08→20:47)
[2017-09-12 06:25] LABS: BLOOD UREA NITROGEN 162 mg/dl (7-20)
[2017-09-12] MEDS: ALBUMIN HUMAN 25% 50 ML IV (06:50)
[2017-09-12 06:56] LABS: ANISOCYTOSIS 3+ (0-0); BAND NEUTROPHILS #M 0.9 10^3/ul (0.0-0.6); BAND NEUTROPHILS % (M) 7 % (0-4); BASOPHIL #M 0.1 10^3/ul (0.0-0.0); BASOPHILS % (M) 1 % (0-2); EOSINOPHILS % (M) 13 % (0-7); GIANT THROMBO% (M) 2 % (0-0); PLATELET ESTIMATE SIG DECREASED; SEG NEUT #M 10.5 10^3/ul (1.6-7.5); SEGMENTED NEUTROPHILS (M) % 79 % (39-77); SMUDGE%M 64 % (0-0)
[2017-09-12] MEDS: INSULIN ASPART [NOVOLOG] 3 ML PEN SC ×4 (08:24→21:25)
[2017-09-12] MEDS: ALBUTEROL HFA 8 GM INHALER INH ×4 (08:49→21:12)
[2017-09-12] MEDS: LACTULOSE 30ML CUP PO (09:00)
[2017-09-12] MEDS: METOPROLOL 100 MG TAB NGT ×2 (09:00→21:46)
[2017-09-12] MEDS: TIOTROPIUM 18 MCG CAPSULE INHA DEV INH (09:00)
[2017-09-12] MEDS: FLUTICASONE/VILANTEROL 100-25 INH (09:00)
[2017-09-12 09:42] LABS: AMMONIA 21 umol/l (9-30)
[2017-09-12] MEDS: MEROPENEM 500MG/50 ML (PMX) 50 ML IVPB ×2 (11:30→20:48)
[2017-09-12] MEDS: LACTULOSE 30ML CUP NGT ×2 (11:30→11:43)
[2017-09-12] MEDS: RIFAXIMIN 550 MG TAB PO ×2 (11:31→20:47)
[2017-09-12] MEDS: ACETAMINOPHEN 325 MG TAB PO (11:31)
[2017-09-12] MEDS: DIPHENHYDRAMINE 50 MG INJ IV (11:31)
[2017-09-12] MEDS: NYSTATIN 30 GM POWDER BTL TOP ×2 (11:33→20:48)
[2017-09-12] MEDS: FLUTICASONE 0.05% 16 GM NAS SPRAY NASAL ×2 (11:33→20:48)
[2017-09-12] MEDS: NYSTATIN/TRIAMCINOLONE 15 GM CR TOP (11:34)
[2017-09-12] MEDS: L ACIDOPHIL/B LACTIS/B LONGUM CAPSULE PO ×2 (11:35→20:46)
[2017-09-12 12:16] LABS: OCCULT BLOOD STOOL POSITIVE (NEGATIVE)
[2017-09-12 13:07] LABS: HEPATITIS B SURFACE ANTIGEN NEGATIVE (NEGATIVE)
[2017-09-12 15:48] LABS: IMMEDIATE SPIN CROSSMATCH 1 2
[2017-09-12] MEDS: HEPARIN 1000 UNITS/ML 10 ML INJ CATHETER (18:19)
[2017-09-12] MEDS: RANITIDINE 150 MG TAB PO (20:46)
[2017-09-12] MEDS: MONTELUKAST 10 MG TAB PO (20:47)
[2017-09-13] MEDS: INSULIN ASPART [NOVOLOG] 3 ML PEN SC ×5 (00:05→22:14)
[2017-09-13] MEDS: PROPOFOL 100 ML IV (02:09)
[2017-09-13 04:54] LABS: ABNORMAL IP MESSAGE 1; HEMATOCRIT 28.8 % (37.0-47.0); HEMOGLOBIN 10.2 g/dl (12.0-16.0); MEAN CORPUSCULAR HEMOGLOBIN 31.6 pg (29.0-33.0); MEAN CORPUSCULAR HGB CONC 35.4 g/dl (32.0-37.0); MEAN CORPUSCULAR VOLUME 89.2 fl (82.0-101.0); MEAN PLATELET VOLUME 12.8 fl (7.4-10.4); NUCLEATED RED BLOOD CELLS% 1.3 /100WBC (0.0-0.0); PLATELET COUNT 62 10^3/UL (140-415); RED BLOOD COUNT 3.23 10^6/ul (4.20-5.40)
[2017-09-13 05:27] LABS: ADD MAN DIFF? YES; POSITIVE DIFF @See below
[2017-09-13 05:30] LABS: AMMONIA 22 umol/l (9-30)
[2017-09-13 05:37] LABS: ALANINE AMINOTRANSFERASE 92 IU/L (13-69); ALBUMIN 2.4 g/dl (3.3-4.9); ALBUMIN/GLOBULIN RATIO 0.96; ALKALINE PHOSPHATASE 174 IU/L (42-121); ANION GAP 14 (8-16); ASPARTATE AMINO TRANSFERASE 87 IU/L (15-46); BILIRUBIN,INDIRECT 0.5 mg/dl (0-1.1); BILIRUBIN,TOTAL 1.2 mg/dl (0.2-1.3); CARBON DIOXIDE 27 mmol/L (21-31); CHLORIDE 97 mmol/L (97-110); CREATININE 1.71 mg/dl (0.44-1.00); GLUCOSE 161 mg/dl (70-220); MAGNESIUM 2.3 mg/dl (1.7-2.5); POTASSIUM 4.3 mmol/L (3.5-5.1); SODIUM 134 mmol/L (135-144); TOTAL PROTEIN 4.9 g/dl (6.1-8.1)
[2017-09-13 05:49] LABS: BLOOD UREA NITROGEN 123 mg/dl (7-20)
[2017-09-13] MEDS: PANTOPRAZOLE 40 MG INJ IV (06:17)
[2017-09-13] MEDS: METHYLPREDNISOLONE 40 MG INJ IV ×3 (06:18→21:47)
[2017-09-13] MEDS: SUCRALFATE 1 GM TAB PO ×4 (06:18→21:46)
[2017-09-13] MEDS: NPH, HUMAN INSULIN ISOPHANE 3ML VIAL SC ×3 (06:21→22:07)
[2017-09-13] MEDS: FLUTICASONE/VILANTEROL 100-25 INH (09:00)
[2017-09-13] MEDS: LACTULOSE 30ML CUP NGT ×2 (09:00→18:26)
[2017-09-13] MEDS: TIOTROPIUM 18 MCG CAPSULE INHA DEV INH (09:00)
[2017-09-13] MEDS: ALBUTEROL HFA 8 GM INHALER INH ×4 (09:22→21:40)
[2017-09-13] MEDS: RIFAXIMIN 550 MG TAB PO ×2 (10:01→21:46)
[2017-09-13] MEDS: NYSTATIN/TRIAMCINOLONE 15 GM CR TOP (10:02)
[2017-09-13] MEDS: FLUTICASONE 0.05% 16 GM NAS SPRAY NASAL ×2 (10:02→21:47)
[2017-09-13] MEDS: NYSTATIN 30 GM POWDER BTL TOP ×2 (10:02→21:47)
[2017-09-13] MEDS: METOPROLOL 50 MG TAB NGT ×2 (10:07→21:00)
[2017-09-13 10:10] LABS: ANISOCYTOSIS 2+ (0-0); BAND NEUTROPHILS #M 0.1 10^3/ul (0.0-0.6); BAND NEUTROPHILS % (M) 1 % (0-4); BURR CELLS 3+ (0-0); EOSINOPHILS % (M) 4 % (0-7); ERYTHROBLAST% (NRBC) (M) 4 % (0-0); GIANT THROMBO% (M) 2 % (0-0); MONOCYTE #M 0.7 10^3/ul (0.3-0.9); MONOCYTES % (M) 5 % (0-11); MYELOCYTES #M 0.4 10^3/ul (0.0-0.0); MYELOCYTES % (M) 3 % (0-0); PLATELET ESTIMATE SIG DECREASED; POIKILOCYTOSIS 3+ (0-0); SEG NEUT #M 13.1 10^3/ul (1.6-7.5); SEGMENTED NEUTROPHILS (M) % 87 % (39-77); SMUDGE%M 2 % (0-0)
[2017-09-13] MEDS: MEROPENEM 500MG/50 ML (PMX) 50 ML IVPB ×2 (10:24→21:47)
[2017-09-13] MEDS: FENTAnyl (DRIP) 1000 mcg/100mL 100 ML IV (10:33)
[2017-09-13] MEDS: L ACIDOPHIL/B LACTIS/B LONGUM CAPSULE PO ×2 (10:40→21:00)
[2017-09-13 11:17] LABS: AADO2 Arterial 368.6 mmHg (7.0-24.0); Allen Test ACCEPTAB; Arterial Base Excess -0.1 mmol/L (-3.0-3); Arterial Blood Gas Oxygen Sat 94.5 mmHG (95.0-100.0); Arterial COHb 0.7 % (0.0-3.0); Arterial Fraction of Oxyhgb 93.7 % (93.0-99.0); Arterial HCO3 26.1 mmol/L (22.0-26.0); Arterial MetHb 0.1 % (0.0-1.5); Arterial Total Hemglobin 13.1 g/dl (12.0-18.0); Arterial pCO2 49.2 mmhg (35-45); MODE VENT - AC; Site Left Radial
[2017-09-13] MEDS: ALBUMIN HUMAN 25% 100 ML IV (13:50)
[2017-09-13] MEDS: HEPARIN 1000 UNITS/ML 10 ML INJ CATHETER (14:53)
[2017-09-13] MEDS: OCULAR LUBRICANT 3.5 GM OPH OINT OP (18:28)
[2017-09-13] MEDS: MONTELUKAST 10 MG TAB PO (21:46)
[2017-09-13] MEDS: RANITIDINE 150 MG TAB PO (21:46)
[2017-09-14] MEDS: METHYLPREDNISOLONE 40 MG INJ IV ×3 (04:29→21:10)
[2017-09-14] MEDS: PANTOPRAZOLE 40 MG INJ IV (04:29)
[2017-09-14] MEDS: NPH, HUMAN INSULIN ISOPHANE 3ML VIAL SC ×3 (04:37→21:13)
[2017-09-14] MEDS: INSULIN ASPART [NOVOLOG] 3 ML PEN SC ×4 (04:40→23:11)
[2017-09-14 05:13] LABS: ADD MAN DIFF? NO
[2017-09-14 05:24] LABS: ABNORMAL IP MESSAGE 1; BASOPHIL # 0.1 10^3/ul (0.0-0.1); BASOPHILS % 0.6 % (0.0-2.0); HEMATOCRIT 29.9 % (37.0-47.0); HEMOGLOBIN 10.2 g/dl (12.0-16.0); LYMPHOCYTES # 0.6 10^3/ul (0.8-2.9); MEAN CORPUSCULAR HEMOGLOBIN 30.3 pg (29.0-33.0); MEAN CORPUSCULAR HGB CONC 34.1 g/dl (32.0-37.0); MEAN CORPUSCULAR VOLUME 88.7 fl (82.0-101.0); MEAN PLATELET VOLUME 13.2 fl (7.4-10.4); MONOCYTES % 4.8 % (0.0-11.0); NEUTROPHILS % 81.6 % (39.0-77.0); NUCLEATED RED BLOOD CELLS # 0.4 10^3/ul (0.0-0.0); NUCLEATED RED BLOOD CELLS% 1.7 /100WBC (0.0-0.0); PLATELET COUNT 79 10^3/UL (140-415); RED BLOOD COUNT 3.37 10^6/ul (4.20-5.40); RED CELL DISTRIBUTION WIDTH 17.1 % (11.5-14.5)
[2017-09-14 05:24] LABS: WHITE BLOOD COUNT 20.8 10^3/ul (4.8-10.8)
[2017-09-14 05:39] LABS: ANION GAP 16 (8-16); BLOOD UREA NITROGEN 115 mg/dl (7-20); CALCIUM 8.1 mg/dl (8.4-10.2); CARBON DIOXIDE 27 mmol/L (21-31); CHLORIDE 97 mmol/L (97-110); CREATININE 1.59 mg/dl (0.44-1.00); GLUCOSE 174 mg/dl (70-220); POSITIVE DIFF @See below; POTASSIUM 4.8 mmol/L (3.5-5.1); SODIUM 135 mmol/L (135-144)
[2017-09-14 07:16] LABS: AMMONIA 50 umol/l (9-30)
[2017-09-14] MEDS: SUCRALFATE 1 GM TAB PO ×4 (07:26→20:35)
[2017-09-14 08:48] LABS: AADO2 Arterial 321.4 mmHg (7.0-24.0); Allen Test ACCEPTAB; Arterial Base Excess 1.4 mmol/L (-3.0-3); Arterial Blood Gas Oxygen Sat 98.3 mmHG (95.0-100.0); Arterial COHb 0.2 % (0.0-3.0); Arterial Fraction of Oxyhgb 97.8 % (93.0-99.0); Arterial HCO3 26.6 mmol/L (22.0-26.0); Arterial MetHb 0.3 % (0.0-1.5); Arterial pCO2 44.4 mmhg (35-45); MODE VENT - AC; Site Right Radial
[2017-09-14] MEDS: TIOTROPIUM 18 MCG CAPSULE INHA DEV INH (09:00)
[2017-09-14] MEDS: ALBUTEROL HFA 8 GM INHALER INH ×4 (09:00→20:02)
[2017-09-14] MEDS: METOPROLOL 50 MG TAB NGT ×2 (09:00→20:35)
[2017-09-14] MEDS: FLUTICASONE/VILANTEROL 100-25 INH (09:00)
[2017-09-14] MEDS: L ACIDOPHIL/B LACTIS/B LONGUM CAPSULE PO ×2 (09:47→20:35)
[2017-09-14] MEDS: RIFAXIMIN 550 MG TAB PO ×2 (09:48→20:35)
[2017-09-14] MEDS: NYSTATIN/TRIAMCINOLONE 15 GM CR TOP (09:48)
[2017-09-14] MEDS: OCULAR LUBRICANT 3.5 GM OPH OINT OP ×2 (09:48→17:53)
[2017-09-14] MEDS: FLUTICASONE 0.05% 16 GM NAS SPRAY NASAL ×2 (09:49→20:34)
[2017-09-14] MEDS: NYSTATIN 30 GM POWDER BTL TOP ×2 (09:49→20:35)
[2017-09-14 12:21] LABS: ADD UMIC YES; UR ASCORBIC ACID NEGATIVE (NEGATIVE); UR BACTERIA FEW /HPF (NONE SEEN); UR BILIRUBIN (Dip) NEGATIVE (NEGATIVE); UR BLOOD (Dip) NEGATIVE (NEGATIVE); UR CLARITY CLEAR (CLEAR); UR COLOR YELLOW (YELLOW); UR GLUCOSE (Dip) NEGATIVE (NEGATIVE); UR KETONES (Dip) NEGATIVE (NEGATIVE); UR LEUKOCYTE ESTERASE (Dip) NEGATIVE Leu/ul (NEGATIVE); UR MUCUS FEW /HPF (NONE SEEN); UR NITRITE (Dip) NEGATIVE (NEGATIVE); UR RBC 4 /HPF (0-5); UR SPECIFIC GRAVITY (Dip) 1.014 (1.003-1.030); UR TOTAL PROTEIN (Dip) 1+ mg/dl (NEGATIVE); UR UROBILINOGEN (Dip) NEGATIVE (NEGATIVE); UR WBC 1 /HPF (0-5)
[2017-09-14] MEDS: ALBUMIN HUMAN 25% 100 ML IV (12:42)
[2017-09-14] MEDS: HEPARIN 1000 UNITS/ML 10 ML INJ CATHETER (13:38)
[2017-09-14] MEDS: MEROPENEM 500MG/50 ML (PMX) 50 ML IVPB ×2 (14:48→20:33)
[2017-09-14] MEDS: LACTULOSE 30ML CUP NGT (14:48)
[2017-09-14] MEDS: MONTELUKAST 10 MG TAB PO (20:34)
[2017-09-14] MEDS: FENTAnyl (DRIP) 1000 mcg/100mL 100 ML IV (21:14)
[2017-09-15] MEDS: PANTOPRAZOLE 40 MG INJ IV (05:24)
[2017-09-15] MEDS: METHYLPREDNISOLONE 40 MG INJ IV ×3 (05:24→22:12)
[2017-09-15] MEDS: NPH, HUMAN INSULIN ISOPHANE 3ML VIAL SC ×3 (05:40→22:14)
[2017-09-15] MEDS: INSULIN ASPART [NOVOLOG] 3 ML PEN SC ×4 (05:41→23:51)
[2017-09-15] MEDS: SUCRALFATE 1 GM TAB PO ×4 (06:11→20:35)
[2017-09-15 06:14] LABS: ADD MAN DIFF? NO
[2017-09-15 06:15] LABS: ABNORMAL IP MESSAGE 1; BASOPHILS % 0.2 % (0.0-2.0); HEMATOCRIT 26.3 % (37.0-47.0); HEMOGLOBIN 8.9 g/dl (12.0-16.0); LYMPHOCYTES # 0.5 10^3/ul (0.8-2.9); LYMPHOCYTES % 2.1 % (15.0-51.0); MEAN CORPUSCULAR HEMOGLOBIN 30.5 pg (29.0-33.0); MEAN CORPUSCULAR HGB CONC 33.8 g/dl (32.0-37.0); MEAN CORPUSCULAR VOLUME 90.1 fl (82.0-101.0); MEAN PLATELET VOLUME 12.7 fl (7.4-10.4); MONOCYTE # 0.9 10^3/ul (0.3-0.9); MONOCYTES % 4.1 % (0.0-11.0); NEUTROPHIL # 20.4 10^3/ul (1.6-7.5); NEUTROPHILS % 88.7 % (39.0-77.0); NUCLEATED RED BLOOD CELLS # 0.2 10^3/ul (0.0-0.0); NUCLEATED RED BLOOD CELLS% 0.7 /100WBC (0.0-0.0); PLATELET COUNT 57 10^3/UL (140-415); RED BLOOD COUNT 2.92 10^6/ul (4.20-5.40); RED CELL DISTRIBUTION WIDTH 17.1 % (11.5-14.5)
[2017-09-15] MEDS: FENTAnyl (DRIP) 1000 mcg/100mL 100 ML IV ×2 (06:15→17:41)
[2017-09-15 06:35] LABS: POSITIVE DIFF @See below
[2017-09-15 06:53] LABS: ALANINE AMINOTRANSFERASE 76 IU/L (13-69); ALBUMIN 2.7 g/dl (3.3-4.9); ALKALINE PHOSPHATASE 156 IU/L (42-121); ANION GAP 13 (8-16); ASPARTATE AMINO TRANSFERASE 83 IU/L (15-46); BILIRUBIN,INDIRECT 0.5 mg/dl (0-1.1); BILIRUBIN,TOTAL 0.7 mg/dl (0.2-1.3); BLOOD UREA NITROGEN 108 mg/dl (7-20); CALCIUM 8.2 mg/dl (8.4-10.2); CARBON DIOXIDE 27 mmol/L (21-31); CHLORIDE 99 mmol/L (97-110); CREATININE 1.66 mg/dl (0.44-1.00); GLUCOSE 148 mg/dl (70-220); POTASSIUM 4.6 mmol/L (3.5-5.1); SODIUM 134 mmol/L (135-144); TOTAL PROTEIN 5.1 g/dl (6.1-8.1)
[2017-09-15 06:54] LABS: ALBUMIN/GLOBULIN RATIO 1.12
[2017-09-15] MEDS: RIFAXIMIN 550 MG TAB PO ×2 (08:50→20:35)
[2017-09-15] MEDS: FLUTICASONE 0.05% 16 GM NAS SPRAY NASAL ×2 (08:50→20:35)
[2017-09-15] MEDS: LACTULOSE 30ML CUP NGT (08:50)
[2017-09-15] MEDS: MEROPENEM 500MG/50 ML (PMX) 50 ML IVPB ×2 (08:50→20:35)
[2017-09-15] MEDS: NYSTATIN 30 GM POWDER BTL TOP ×2 (08:51→20:35)
[2017-09-15] MEDS: NYSTATIN/TRIAMCINOLONE 15 GM CR TOP (08:51)
[2017-09-15] MEDS: L ACIDOPHIL/B LACTIS/B LONGUM CAPSULE PO ×2 (08:51→20:34)
[2017-09-15] MEDS: OCULAR LUBRICANT 3.5 GM OPH OINT OP (08:52)
[2017-09-15] MEDS: ALBUTEROL HFA 8 GM INHALER INH ×4 (09:00→19:57)
[2017-09-15] MEDS: METOPROLOL 50 MG TAB NGT ×2 (09:00→20:35)
[2017-09-15] MEDS: FLUCONAZOLE 200 MG (PMX) 100 ML IVPB (09:56)
[2017-09-15 10:04] LABS: AMMONIA 20 umol/l (9-30)
[2017-09-15] MEDS: MIDAZOLAM (DRIP) 50 mg/50 mL 50 ML IV (12:15)
[2017-09-15 13:26] LABS: PROCALCITONIN 1.22 ng/mL (<0.10)
[2017-09-15] MEDS: NORepinephrine 8MG/250 ML (PMX 250 ML IV (17:40)
[2017-09-15] MEDS: ALBUMIN HUMAN 25% 100 ML IV ×2 (18:05→18:06)
[2017-09-15] MEDS: HEPARIN 1000 UNITS/ML 10 ML INJ CATHETER (18:10)
[2017-09-15] MEDS: MONTELUKAST 10 MG TAB PO (20:35)
[2017-09-16 05:29] LABS: ADD MAN DIFF? NO
[2017-09-16 05:38] LABS: WHITE BLOOD COUNT 16.6 10^3/ul (4.8-10.8)
[2017-09-16 05:38] LABS: ABNORMAL IP MESSAGE 1; BASOPHILS % 0.1 % (0.0-2.0); EOSINOPHILS % 0.1 % (0.0-7.0); HEMATOCRIT 23.4 % (37.0-47.0); HEMOGLOBIN 7.9 g/dl (12.0-16.0); LYMPHOCYTES # 0.4 10^3/ul (0.8-2.9); LYMPHOCYTES % 2.2 % (15.0-51.0); MEAN CORPUSCULAR HEMOGLOBIN 30.6 pg (29.0-33.0); MEAN CORPUSCULAR HGB CONC 33.8 g/dl (32.0-37.0); MEAN CORPUSCULAR VOLUME 90.7 fl (82.0-101.0); MEAN PLATELET VOLUME 13.1 fl (7.4-10.4); MONOCYTE # 0.7 10^3/ul (0.3-0.9); NEUTROPHIL # 15.1 10^3/ul (1.6-7.5); NEUTROPHILS % 90.9 % (39.0-77.0); NUCLEATED RED BLOOD CELLS% 0.2 /100WBC (0.0-0.0); PLATELET COUNT 45 10^3/UL (140-415); RED BLOOD COUNT 2.58 10^6/ul (4.20-5.40); RED CELL DISTRIBUTION WIDTH 17.1 % (11.5-14.5)
[2017-09-16] MEDS: PANTOPRAZOLE 40 MG INJ IV (05:51)
[2017-09-16] MEDS: SUCRALFATE 1 GM TAB PO ×4 (05:51→20:51)
[2017-09-16] MEDS: METHYLPREDNISOLONE 40 MG INJ IV ×3 (05:51→22:19)
[2017-09-16] MEDS: INSULIN ASPART [NOVOLOG] 3 ML PEN SC ×3 (05:51→17:58)
[2017-09-16 05:52] LABS: POSITIVE DIFF @See below
[2017-09-16] MEDS: NPH, HUMAN INSULIN ISOPHANE 3ML VIAL SC ×3 (05:55→22:25)
[2017-09-16 06:01] LABS: ALANINE AMINOTRANSFERASE 67 IU/L (13-69); ALBUMIN 2.8 g/dl (3.3-4.9); ALBUMIN/GLOBULIN RATIO 1.21; ALKALINE PHOSPHATASE 137 IU/L (42-121); ANION GAP 10 (8-16); ASPARTATE AMINO TRANSFERASE 76 IU/L (15-46); BILIRUBIN,INDIRECT 0.4 mg/dl (0-1.1); BILIRUBIN,TOTAL 0.4 mg/dl (0.2-1.3); BLOOD UREA NITROGEN 82 mg/dl (7-20); CALCIUM 8.4 mg/dl (8.4-10.2); CARBON DIOXIDE 31 mmol/L (21-31); CHLORIDE 100 mmol/L (97-110); CREATININE 1.13 mg/dl (0.44-1.00); GLUCOSE 81 mg/dl (70-220); POTASSIUM 4.3 mmol/L (3.5-5.1); SODIUM 137 mmol/L (135-144); TOTAL PROTEIN 5.1 g/dl (6.1-8.1)
[2017-09-16] MEDS: FENTAnyl (DRIP) 1000 mcg/100mL 100 ML IV ×2 (06:55→18:17)
[2017-09-16] MEDS: FLUCONAZOLE 200 MG (PMX) 100 ML IVPB (08:07)
[2017-09-16] MEDS: ALBUTEROL HFA 8 GM INHALER INH ×4 (08:14→21:00)
[2017-09-16] MEDS: RIFAXIMIN 550 MG TAB PO ×2 (08:48→20:51)
[2017-09-16] MEDS: METOPROLOL 50 MG TAB NGT ×2 (08:48→21:00)
[2017-09-16] MEDS: LACTULOSE 30ML CUP NGT (08:48)
[2017-09-16] MEDS: FLUTICASONE 0.05% 16 GM NAS SPRAY NASAL ×2 (08:49→20:52)
[2017-09-16] MEDS: NYSTATIN/TRIAMCINOLONE 15 GM CR TOP (08:49)
[2017-09-16] MEDS: NYSTATIN 30 GM POWDER BTL TOP ×2 (08:49→20:51)
[2017-09-16] MEDS: MEROPENEM 500MG/50 ML (PMX) 50 ML IVPB ×2 (08:49→20:51)
[2017-09-16] MEDS: L ACIDOPHIL/B LACTIS/B LONGUM CAPSULE PO ×2 (08:54→20:55)
[2017-09-16] MEDS: MONTELUKAST 10 MG TAB PO (20:51)
[2017-09-16] MEDS: OCULAR LUBRICANT 3.5 GM OPH OINT OP (20:52)
[2017-09-17] MEDS: SOD CHLORIDE 0.9% 250 ML IV* (00:32)
[2017-09-17] MEDS: HEPARIN 1000 UNITS/ML 10 ML INJ CATHETER ×2 (01:58→12:59)
[2017-09-17 05:31] LABS: ADD MAN DIFF? NO
[2017-09-17 05:45] LABS: ABNORMAL IP MESSAGE 1; BASOPHILS % 0.2 % (0.0-2.0); HEMATOCRIT 29.3 % (37.0-47.0); HEMOGLOBIN 10.1 g/dl (12.0-16.0); LYMPHOCYTES # 0.3 10^3/ul (0.8-2.9); LYMPHOCYTES % 1.5 % (15.0-51.0); MEAN CORPUSCULAR HGB CONC 34.5 g/dl (32.0-37.0); MEAN CORPUSCULAR VOLUME 89.9 fl (82.0-101.0); MEAN PLATELET VOLUME 12.8 fl (7.4-10.4); MONOCYTE # 0.6 10^3/ul (0.3-0.9); MONOCYTES % 3.3 % (0.0-11.0); NEUTROPHIL # 17.1 10^3/ul (1.6-7.5); NEUTROPHILS % 93.1 % (39.0-77.0); NUCLEATED RED BLOOD CELLS% 0.1 /100WBC (0.0-0.0); PLATELET COUNT 71 10^3/UL (140-415); RED BLOOD COUNT 3.26 10^6/ul (4.20-5.40); RED CELL DISTRIBUTION WIDTH 16.2 % (11.5-14.5)
[2017-09-17 05:45] LABS: WHITE BLOOD COUNT 18.3 10^3/ul (4.8-10.8)
[2017-09-17] MEDS: PANTOPRAZOLE 40 MG INJ IV (06:05)
[2017-09-17] MEDS: METHYLPREDNISOLONE 40 MG INJ IV ×3 (06:07→22:10)
[2017-09-17 06:11] LABS: AMMONIA 18 umol/l (9-30)
[2017-09-17] MEDS: INSULIN ASPART [NOVOLOG] 3 ML PEN SC ×4 (06:18→18:51)
[2017-09-17] MEDS: NPH, HUMAN INSULIN ISOPHANE 3ML VIAL SC ×3 (06:20→22:14)
[2017-09-17] MEDS: SUCRALFATE 1 GM TAB PO ×4 (06:25→21:00)
[2017-09-17 06:29] LABS: MAGNESIUM 2.3 mg/dl (1.7-2.5)
[2017-09-17 06:53] LABS: ALANINE AMINOTRANSFERASE 91 IU/L (13-69); ALBUMIN 2.9 g/dl (3.3-4.9); ALKALINE PHOSPHATASE 168 IU/L (42-121); ANION GAP 16 (8-16); ASPARTATE AMINO TRANSFERASE 101 IU/L (15-46); BILIRUBIN,TOTAL 1.3 mg/dl (0.2-1.3); BLOOD UREA NITROGEN 101 mg/dl (7-20); CARBON DIOXIDE 27 mmol/L (21-31); CHLORIDE 99 mmol/L (97-110); CREATININE 1.19 mg/dl (0.44-1.00); GLUCOSE 158 mg/dl (70-220); POTASSIUM 4.6 mmol/L (3.5-5.1); SODIUM 137 mmol/L (135-144); TOTAL PROTEIN 5.3 g/dl (6.1-8.1)
[2017-09-17 07:00] LABS: POSITIVE DIFF @See below
[2017-09-17] MEDS: METOPROLOL 50 MG TAB NGT ×2 (09:00→22:09)
[2017-09-17] MEDS: FLUCONAZOLE 200 MG (PMX) 100 ML IVPB (09:03)
[2017-09-17] MEDS: MEROPENEM 500MG/50 ML (PMX) 50 ML IVPB ×2 (09:03→22:07)
[2017-09-17] MEDS: RIFAXIMIN 550 MG TAB PO ×2 (09:03→21:00)
[2017-09-17] MEDS: L ACIDOPHIL/B LACTIS/B LONGUM CAPSULE PO ×2 (09:03→21:00)
[2017-09-17] MEDS: NYSTATIN/TRIAMCINOLONE 15 GM CR TOP (09:04)
[2017-09-17] MEDS: OCULAR LUBRICANT 3.5 GM OPH OINT OP (09:04)
[2017-09-17] MEDS: LACTULOSE 30ML CUP NGT (09:04)
[2017-09-17] MEDS: FLUTICASONE 0.05% 16 GM NAS SPRAY NASAL ×2 (09:04→21:00)
[2017-09-17] MEDS: NYSTATIN 30 GM POWDER BTL TOP ×2 (09:04→22:10)
[2017-09-17] MEDS: ALBUTEROL HFA 8 GM INHALER INH ×4 (09:25→21:00)
[2017-09-17] MEDS: ALBUMIN HUMAN 25% 100 ML IV ×2 (10:02→11:10)
[2017-09-17] MEDS: FENTAnyl (DRIP) 1000 mcg/100mL 100 ML IV (20:55)
[2017-09-17] MEDS: MONTELUKAST 10 MG TAB PO (21:00)
[2017-09-18] MEDS: INSULIN ASPART [NOVOLOG] 3 ML PEN SC ×4 (00:25→18:00)
[2017-09-18 05:41] LABS: ADD MAN DIFF? NO
[2017-09-18 05:48] LABS: WHITE BLOOD COUNT 15.3 10^3/ul (4.8-10.8)
[2017-09-18 05:48] LABS: ABNORMAL IP MESSAGE 1; BASOPHILS % 0.1 % (0.0-2.0); HEMATOCRIT 23.6 % (37.0-47.0); HEMOGLOBIN 7.9 g/dl (12.0-16.0); LYMPHOCYTES # 0.4 10^3/ul (0.8-2.9); MEAN CORPUSCULAR HEMOGLOBIN 30.3 pg (29.0-33.0); MEAN CORPUSCULAR HGB CONC 33.5 g/dl (32.0-37.0); MEAN CORPUSCULAR VOLUME 90.4 fl (82.0-101.0); MEAN PLATELET VOLUME 12.2 fl (7.4-10.4); MONOCYTE # 0.5 10^3/ul (0.3-0.9); MONOCYTES % 3.5 % (0.0-11.0); NEUTROPHIL # 14.3 10^3/ul (1.6-7.5); NEUTROPHILS % 93.3 % (39.0-77.0); NUCLEATED RED BLOOD CELLS% 0.1 /100WBC (0.0-0.0); RED BLOOD COUNT 2.61 10^6/ul (4.20-5.40); RED CELL DISTRIBUTION WIDTH 16.8 % (11.5-14.5)
[2017-09-18] MEDS: METHYLPREDNISOLONE 40 MG INJ IV ×4 (05:56→21:49)
[2017-09-18] MEDS: PANTOPRAZOLE 40 MG INJ IV (05:56)
[2017-09-18] MEDS: NPH, HUMAN INSULIN ISOPHANE 3ML VIAL SC ×3 (06:03→21:52)
[2017-09-18 06:12] LABS: AMMONIA 21 umol/l (9-30)
[2017-09-18 06:15] LABS: ALANINE AMINOTRANSFERASE 82 IU/L (13-69); ALBUMIN 2.9 g/dl (3.3-4.9); ALBUMIN/GLOBULIN RATIO 1.31; ALKALINE PHOSPHATASE 132 IU/L (42-121); ANION GAP 9 (8-16); ASPARTATE AMINO TRANSFERASE 113 IU/L (15-46); BILIRUBIN,INDIRECT 0.8 mg/dl (0-1.1); BILIRUBIN,TOTAL 0.8 mg/dl (0.2-1.3); BLOOD UREA NITROGEN 71 mg/dl (7-20); CALCIUM 8.9 mg/dl (8.4-10.2); CARBON DIOXIDE 31 mmol/L (21-31); CHLORIDE 100 mmol/L (97-110); CREATININE 1.02 mg/dl (0.44-1.00); GLUCOSE 121 mg/dl (70-220); MAGNESIUM 2.2 mg/dl (1.7-2.5); POTASSIUM 4.4 mmol/L (3.5-5.1); SODIUM 136 mmol/L (135-144); TOTAL PROTEIN 5.1 g/dl (6.1-8.1)
[2017-09-18] MEDS: SUCRALFATE 1 GM TAB PO ×4 (06:22→21:27)
[2017-09-18 06:29] LABS: POSITIVE DIFF @See below
[2017-09-18 06:30] LABS: LYMPHOCYTES % 2.4 % (15.0-51.0); PLATELET COUNT 55 10^3/UL (140-415)
[2017-09-18] MEDS: SOD CHLORIDE 0.9% 250 ML IV* (07:52)
[2017-09-18] MEDS: FLUCONAZOLE 200 MG (PMX) 100 ML IVPB (08:11)
[2017-09-18] MEDS: METOPROLOL 50 MG TAB NGT ×2 (09:00→21:28)
[2017-09-18] MEDS: ALBUTEROL HFA 8 GM INHALER INH ×4 (09:00→20:09)
[2017-09-18] MEDS: L ACIDOPHIL/B LACTIS/B LONGUM CAPSULE PO ×2 (09:50→21:48)
[2017-09-18] MEDS: VITAMIN A & D 5 GM OINT PACKET TOP ×2 (09:50→21:48)
[2017-09-18] MEDS: NYSTATIN/TRIAMCINOLONE 15 GM CR TOP (09:50)
[2017-09-18] MEDS: NYSTATIN 30 GM POWDER BTL TOP ×2 (09:50→21:27)
[2017-09-18] MEDS: RIFAXIMIN 550 MG TAB PO ×2 (09:50→21:27)
[2017-09-18] MEDS: FLUTICASONE 0.05% 16 GM NAS SPRAY NASAL ×2 (09:50→21:27)
[2017-09-18] MEDS: LACTULOSE 30ML CUP NGT (09:50)
[2017-09-18] MEDS: OCULAR LUBRICANT 3.5 GM OPH OINT OP (09:52)
[2017-09-18] MEDS: MEROPENEM 500MG/50 ML (PMX) 50 ML IVPB ×2 (09:52→21:27)
[2017-09-18 10:53] LABS: IMMEDIATE SPIN CROSSMATCH 1 2
[2017-09-18] MEDS: HEPARIN 1000 UNITS/ML 10 ML INJ CATHETER (13:05)
[2017-09-18] MEDS: MIDAZOLAM (DRIP) 50 mg/50 mL 50 ML IV (16:34)
[2017-09-18] MEDS: FENTAnyl (DRIP) 1000 mcg/100mL 100 ML IV (21:18)
[2017-09-18] MEDS: MONTELUKAST 10 MG TAB PO (21:48)
[2017-09-19 05:18] LABS: ADD MAN DIFF? NO
[2017-09-19 05:26] LABS: WHITE BLOOD COUNT 12.7 10^3/ul (4.8-10.8)
[2017-09-19 05:26] LABS: ABNORMAL IP MESSAGE 1; BASOPHILS % 0.1 % (0.0-2.0); HEMATOCRIT 28.5 % (37.0-47.0); HEMOGLOBIN 9.9 g/dl (12.0-16.0); LYMPHOCYTES # 0.3 10^3/ul (0.8-2.9); LYMPHOCYTES % 2.1 % (15.0-51.0); MEAN CORPUSCULAR HGB CONC 34.7 g/dl (32.0-37.0); MEAN CORPUSCULAR VOLUME 89.3 fl (82.0-101.0); MEAN PLATELET VOLUME 12.6 fl (7.4-10.4); MONOCYTE # 0.6 10^3/ul (0.3-0.9); MONOCYTES % 4.4 % (0.0-11.0); NEUTROPHIL # 11.7 10^3/ul (1.6-7.5); NEUTROPHILS % 92.8 % (39.0-77.0); NUCLEATED RED BLOOD CELLS% 0.2 /100WBC (0.0-0.0); PLATELET COUNT 60 10^3/UL (140-415); RED BLOOD COUNT 3.19 10^6/ul (4.20-5.40); RED CELL DISTRIBUTION WIDTH 16.8 % (11.5-14.5)
[2017-09-19 05:33] LABS: POSITIVE DIFF @See below
[2017-09-19 05:42] LABS: ALANINE AMINOTRANSFERASE 92 IU/L (13-69); ALBUMIN 2.9 g/dl (3.3-4.9); ALBUMIN/GLOBULIN RATIO 1.52; ALKALINE PHOSPHATASE 155 IU/L (42-121); ANION GAP 11 (8-16); ASPARTATE AMINO TRANSFERASE 127 IU/L (15-46); BILIRUBIN,INDIRECT 1.4 mg/dl (0-1.1); BILIRUBIN,TOTAL 1.4 mg/dl (0.2-1.3); BLOOD UREA NITROGEN 84 mg/dl (7-20); CALCIUM 9.1 mg/dl (8.4-10.2); CARBON DIOXIDE 30 mmol/L (21-31); CHLORIDE 101 mmol/L (97-110); CREATININE 0.94 mg/dl (0.44-1.00); GLUCOSE 122 mg/dl (70-220); MAGNESIUM 2.2 mg/dl (1.7-2.5); PHOSPHORUS 3.5 mg/dl (2.5-4.9); POTASSIUM 4.5 mmol/L (3.5-5.1); SODIUM 137 mmol/L (135-144); TOTAL PROTEIN 4.8 g/dl (6.1-8.1)
[2017-09-19] MEDS: PANTOPRAZOLE 40 MG INJ IV (05:48)
[2017-09-19] MEDS: METHYLPREDNISOLONE 40 MG INJ IV ×3 (05:48→21:34)
[2017-09-19] MEDS: INSULIN ASPART [NOVOLOG] 3 ML PEN SC ×4 (05:48→17:56)
[2017-09-19 05:49] LABS: AMMONIA 25 umol/l (9-30)
[2017-09-19] MEDS: NPH, HUMAN INSULIN ISOPHANE 3ML VIAL SC ×3 (05:54→21:36)
[2017-09-19] MEDS: SUCRALFATE 1 GM TAB PO ×4 (06:14→21:34)
[2017-09-19] MEDS: MEROPENEM 500MG/50 ML (PMX) 50 ML IVPB ×2 (08:19→21:34)
[2017-09-19] MEDS: METOPROLOL 50 MG TAB NGT ×2 (08:22→21:35)
[2017-09-19] MEDS: LACTULOSE 30ML CUP NGT (08:22)
[2017-09-19] MEDS: RIFAXIMIN 550 MG TAB PO ×2 (08:23→21:34)
[2017-09-19] MEDS: NYSTATIN 30 GM POWDER BTL TOP ×2 (08:23→21:35)
[2017-09-19] MEDS: VITAMIN A & D 5 GM OINT PACKET TOP ×2 (08:23→21:34)
[2017-09-19] MEDS: NYSTATIN/TRIAMCINOLONE 15 GM CR TOP (08:25)
[2017-09-19] MEDS: FLUTICASONE 0.05% 16 GM NAS SPRAY NASAL ×2 (08:25→21:34)
[2017-09-19] MEDS: FLUCONAZOLE 200 MG (PMX) 100 ML IVPB (08:25)
[2017-09-19] MEDS: L ACIDOPHIL/B LACTIS/B LONGUM CAPSULE PO ×2 (08:25→21:34)
[2017-09-19] MEDS: ALBUTEROL HFA 8 GM INHALER INH ×4 (09:10→23:00)
[2017-09-19] MEDS: ALBUMIN HUMAN 25% 100 ML IV (13:10)
[2017-09-19] MEDS: HEPARIN 1000 UNITS/ML 10 ML INJ CATHETER (14:08)
[2017-09-19] MEDS: MONTELUKAST 10 MG TAB PO (21:34)
[2017-09-20] MEDS: INSULIN ASPART [NOVOLOG] 3 ML PEN SC ×5 (00:32→23:49)
[2017-09-20 05:00] LABS: ADD MAN DIFF? NO
[2017-09-20 05:02] LABS: WHITE BLOOD COUNT 16.3 10^3/ul (4.8-10.8)
[2017-09-20 05:02] LABS: ABNORMAL IP MESSAGE 1; BASOPHILS % 0.1 % (0.0-2.0); HEMATOCRIT 27.5 % (37.0-47.0); HEMOGLOBIN 9.2 g/dl (12.0-16.0); LYMPHOCYTES # 0.3 10^3/ul (0.8-2.9); MEAN CORPUSCULAR HEMOGLOBIN 30.1 pg (29.0-33.0); MEAN CORPUSCULAR HGB CONC 33.5 g/dl (32.0-37.0); MEAN CORPUSCULAR VOLUME 89.9 fl (82.0-101.0); MEAN PLATELET VOLUME 11.7 fl (7.4-10.4); MONOCYTES % 5.9 % (0.0-11.0); NEUTROPHIL # 14.9 10^3/ul (1.6-7.5); NEUTROPHILS % 91.3 % (39.0-77.0); RED BLOOD COUNT 3.06 10^6/ul (4.20-5.40); RED CELL DISTRIBUTION WIDTH 16.9 % (11.5-14.5)
[2017-09-20 05:03] LABS: PLATELET COUNT 92 10^3/UL (140-415)
[2017-09-20 05:04] LABS: POSITIVE DIFF @See below
[2017-09-20 05:36] LABS: ALANINE AMINOTRANSFERASE 91 IU/L (13-69); ALBUMIN 3.2 g/dl (3.3-4.9); ALBUMIN/GLOBULIN RATIO 1.52; ALKALINE PHOSPHATASE 144 IU/L (42-121); ANION GAP 11 (8-16); ASPARTATE AMINO TRANSFERASE 108 IU/L (15-46); BILIRUBIN,INDIRECT 1.5 mg/dl (0-1.1); BILIRUBIN,TOTAL 1.6 mg/dl (0.2-1.3); BLOOD UREA NITROGEN 70 mg/dl (7-20); CALCIUM 9.2 mg/dl (8.4-10.2); CARBON DIOXIDE 29 mmol/L (21-31); CHLORIDE 103 mmol/L (97-110); CREATININE 0.88 mg/dl (0.44-1.00); GLUCOSE 105 mg/dl (70-220); POTASSIUM 4.4 mmol/L (3.5-5.1); SODIUM 139 mmol/L (135-144); TOTAL PROTEIN 5.3 g/dl (6.1-8.1)
[2017-09-20] MEDS: METHYLPREDNISOLONE 40 MG INJ IV ×3 (05:57→22:07)
[2017-09-20] MEDS: PANTOPRAZOLE 40 MG INJ IV (05:57)
[2017-09-20 06:05] LABS: AMMONIA 14 umol/l (9-30)
[2017-09-20] MEDS: SUCRALFATE 1 GM TAB PO ×4 (06:05→21:12)
[2017-09-20] MEDS: NPH, HUMAN INSULIN ISOPHANE 3ML VIAL SC ×3 (06:11→22:16)
[2017-09-20] MEDS: L ACIDOPHIL/B LACTIS/B LONGUM CAPSULE PO ×2 (08:10→21:12)
[2017-09-20] MEDS: FLUCONAZOLE 200 MG (PMX) 100 ML IVPB (08:10)
[2017-09-20] MEDS: VITAMIN A & D 5 GM OINT PACKET TOP ×2 (08:10→21:12)
[2017-09-20] MEDS: NYSTATIN 30 GM POWDER BTL TOP ×2 (08:11→21:12)
[2017-09-20] MEDS: NYSTATIN/TRIAMCINOLONE 15 GM CR TOP (08:11)
[2017-09-20] MEDS: METOPROLOL 50 MG TAB NGT ×2 (08:11→21:12)
[2017-09-20] MEDS: MEROPENEM 500MG/50 ML (PMX) 50 ML IVPB ×2 (08:12→21:11)
[2017-09-20] MEDS: RIFAXIMIN 550 MG TAB PO ×2 (08:12→21:11)
[2017-09-20] MEDS: FLUTICASONE 0.05% 16 GM NAS SPRAY NASAL ×2 (08:12→21:13)
[2017-09-20] MEDS: ALBUTEROL HFA 8 GM INHALER INH ×4 (08:40→21:24)
[2017-09-20] MEDS: hydrALAzine 20 MG INJ IV ×2 (10:15→17:53)
[2017-09-20] MEDS: ALBUMIN HUMAN 25% 100 ML IV (15:15)
[2017-09-20] MEDS: HEPARIN 1000 UNITS/ML 10 ML INJ CATHETER (16:12)
[2017-09-20] MEDS: MONTELUKAST 10 MG TAB PO (21:11)
[2017-09-21] MEDS: hydrALAzine 20 MG INJ IV ×2 (00:41→06:47)
[2017-09-21 05:23] LABS: ADD MAN DIFF? NO
[2017-09-21 05:26] LABS: ABNORMAL IP MESSAGE 1; BASOPHILS % 0.1 % (0.0-2.0); EOSINOPHILS % 0.1 % (0.0-7.0); HEMATOCRIT 25.1 % (37.0-47.0); HEMOGLOBIN 8.4 g/dl (12.0-16.0); LYMPHOCYTES # 0.3 10^3/ul (0.8-2.9); MEAN CORPUSCULAR HEMOGLOBIN 30.3 pg (29.0-33.0); MEAN CORPUSCULAR HGB CONC 33.5 g/dl (32.0-37.0); MEAN CORPUSCULAR VOLUME 90.6 fl (82.0-101.0); MEAN PLATELET VOLUME 11.4 fl (7.4-10.4); MONOCYTE # 1.1 10^3/ul (0.3-0.9); MONOCYTES % 6.8 % (0.0-11.0); NEUTROPHIL # 14.2 10^3/ul (1.6-7.5); NEUTROPHILS % 90.2 % (39.0-77.0); PLATELET COUNT 85 10^3/UL (140-415); RED BLOOD COUNT 2.77 10^6/ul (4.20-5.40); RED CELL DISTRIBUTION WIDTH 17.1 % (11.5-14.5)
[2017-09-21 05:26] LABS: WHITE BLOOD COUNT 15.7 10^3/ul (4.8-10.8)
[2017-09-21 05:34] LABS: POSITIVE DIFF @See below
[2017-09-21] MEDS: INSULIN ASPART [NOVOLOG] 3 ML PEN SC ×3 (06:00→17:22)
[2017-09-21 06:17] LABS: AMMONIA 27 umol/l (9-30)
[2017-09-21 06:26] LABS: ALANINE AMINOTRANSFERASE 98 IU/L (13-69); ALBUMIN/GLOBULIN RATIO 1.42; ALKALINE PHOSPHATASE 133 IU/L (42-121); ANION GAP 10 (8-16); ASPARTATE AMINO TRANSFERASE 113 IU/L (15-46); BILIRUBIN,INDIRECT 1.7 mg/dl (0-1.1); BILIRUBIN,TOTAL 1.7 mg/dl (0.2-1.3); BLOOD UREA NITROGEN 82 mg/dl (7-20); CALCIUM 9.3 mg/dl (8.4-10.2); CARBON DIOXIDE 28 mmol/L (21-31); CHLORIDE 103 mmol/L (97-110); CREATININE 0.88 mg/dl (0.44-1.00); GLUCOSE 76 mg/dl (70-220); MAGNESIUM 2.1 mg/dl (1.7-2.5); PHOSPHORUS 2.2 mg/dl (2.5-4.9); POTASSIUM 4.4 mmol/L (3.5-5.1); SODIUM 137 mmol/L (135-144); TOTAL PROTEIN 5.1 g/dl (6.1-8.1)
[2017-09-21] MEDS: SUCRALFATE 1 GM TAB PO ×4 (06:40→20:37)
[2017-09-21] MEDS: PANTOPRAZOLE 40 MG INJ IV (06:40)
[2017-09-21] MEDS: METHYLPREDNISOLONE 40 MG INJ IV ×3 (06:40→22:21)
[2017-09-21] MEDS: NPH, HUMAN INSULIN ISOPHANE 3ML VIAL SC ×3 (06:56→22:29)
[2017-09-21] MEDS: FLUCONAZOLE 200 MG (PMX) 100 ML IVPB (07:36)
[2017-09-21] MEDS: RIFAXIMIN 550 MG TAB PO ×2 (08:25→20:36)
[2017-09-21] MEDS: L ACIDOPHIL/B LACTIS/B LONGUM CAPSULE PO ×2 (08:25→20:37)
[2017-09-21] MEDS: METOPROLOL 50 MG TAB NGT (08:25)
[2017-09-21] MEDS: VITAMIN A & D 5 GM OINT PACKET TOP ×2 (08:26→20:37)
[2017-09-21] MEDS: NYSTATIN 30 GM POWDER BTL TOP ×2 (08:26→20:39)
[2017-09-21] MEDS: FLUTICASONE 0.05% 16 GM NAS SPRAY NASAL ×2 (08:26→20:38)
[2017-09-21] MEDS: NYSTATIN/TRIAMCINOLONE 15 GM CR TOP (08:27)
[2017-09-21] MEDS: ALBUTEROL HFA 8 GM INHALER INH ×4 (09:08→21:07)
[2017-09-21] MEDS: MEROPENEM 500MG/50 ML (PMX) 50 ML IVPB ×2 (09:28→20:38)
[2017-09-21] MEDS: BUMETANIDE 25 MG in DEXTROSE 5% 150 ML IV (13:08)
[2017-09-21] MEDS: LACTULOSE 30ML CUP NGT ×2 (13:08→20:37)
[2017-09-21] MEDS: METOLAZONE 5 MG TAB PO (13:09)
[2017-09-21] MEDS: SOD FERRIC GLUC COMPLX 125 MG in SOD CHLORIDE 0.9% 100 ML IVPB (17:16)
[2017-09-21] MEDS: EPOETIN ALFA (NESRD) 3,000 UNITS/ML VIAL SC (20:28)
[2017-09-21] MEDS: MONTELUKAST 10 MG TAB PO (20:37)
[2017-09-22 05:48] LABS: ABNORMAL IP MESSAGE 1; ADD MAN DIFF? NO; HEMATOCRIT 25.2 % (37.0-47.0); HEMOGLOBIN 8.5 g/dl (12.0-16.0); LYMPHOCYTES # 0.3 10^3/ul (0.8-2.9); LYMPHOCYTES % 2.7 % (15.0-51.0); MEAN CORPUSCULAR HEMOGLOBIN 30.8 pg (29.0-33.0); MEAN CORPUSCULAR HGB CONC 33.7 g/dl (32.0-37.0); MEAN CORPUSCULAR VOLUME 91.3 fl (82.0-101.0); MEAN PLATELET VOLUME 11.2 fl (7.4-10.4); MONOCYTE # 0.7 10^3/ul (0.3-0.9); MONOCYTES % 7.3 % (0.0-11.0); NEUTROPHIL # 8.7 10^3/ul (1.6-7.5); NEUTROPHILS % 89.5 % (39.0-77.0); NUCLEATED RED BLOOD CELLS% 0.2 /100WBC (0.0-0.0); PLATELET COUNT 74 10^3/UL (140-415); RED BLOOD COUNT 2.76 10^6/ul (4.20-5.40); RED CELL DISTRIBUTION WIDTH 17.4 % (11.5-14.5)
[2017-09-22 05:48] LABS: WHITE BLOOD COUNT 9.7 10^3/ul (4.8-10.8)
[2017-09-22] MEDS: INSULIN ASPART [NOVOLOG] 3 ML PEN SC ×5 (06:00→23:54)
[2017-09-22] MEDS: PANTOPRAZOLE 40 MG INJ IV (06:07)
[2017-09-22] MEDS: METHYLPREDNISOLONE 40 MG INJ IV ×3 (06:08→22:25)
[2017-09-22 06:09] LABS: AMMONIA 27 umol/l (9-30)
[2017-09-22] MEDS: NPH, HUMAN INSULIN ISOPHANE 3ML VIAL SC ×3 (06:16→22:14)
[2017-09-22 06:22] LABS: ALANINE AMINOTRANSFERASE 167 IU/L (13-69); ALBUMIN 3.1 g/dl (3.3-4.9); ALBUMIN/GLOBULIN RATIO 1.47; ALKALINE PHOSPHATASE 178 IU/L (42-121); ANION GAP 10 (8-16); ASPARTATE AMINO TRANSFERASE 225 IU/L (15-46); BILIRUBIN,INDIRECT 1.8 mg/dl (0-1.1); BILIRUBIN,TOTAL 2.1 mg/dl (0.2-1.3); BLOOD UREA NITROGEN 99 mg/dl (7-20); CALCIUM 9.7 mg/dl (8.4-10.2); CARBON DIOXIDE 34 mmol/L (21-31); CHLORIDE 100 mmol/L (97-110); CREATININE 1.01 mg/dl (0.44-1.00); GLUCOSE 98 mg/dl (70-220); POTASSIUM 4.1 mmol/L (3.5-5.1); SODIUM 140 mmol/L (135-144); TOTAL PROTEIN 5.2 g/dl (6.1-8.1)
[2017-09-22 06:37] LABS: POSITIVE DIFF @See below
[2017-09-22] MEDS: SUCRALFATE 1 GM TAB PO ×4 (07:38→20:55)
[2017-09-22] MEDS: FLUCONAZOLE 200 MG (PMX) 100 ML IVPB (07:38)
[2017-09-22] MEDS: MEROPENEM 500MG/50 ML (PMX) 50 ML IVPB ×2 (09:33→20:56)
[2017-09-22] MEDS: L ACIDOPHIL/B LACTIS/B LONGUM CAPSULE PO ×2 (09:40→20:55)
[2017-09-22] MEDS: LACTULOSE 30ML CUP NGT ×3 (09:40→20:56)
[2017-09-22] MEDS: VITAMIN A & D 5 GM OINT PACKET TOP ×2 (09:40→20:55)
[2017-09-22] MEDS: METOLAZONE 5 MG TAB PO (09:41)
[2017-09-22] MEDS: RIFAXIMIN 550 MG TAB PO ×2 (09:41→20:55)
[2017-09-22] MEDS: NYSTATIN/TRIAMCINOLONE 15 GM CR TOP (09:42)
[2017-09-22] MEDS: NYSTATIN 30 GM POWDER BTL TOP ×2 (09:42→20:57)
[2017-09-22] MEDS: FLUTICASONE 0.05% 16 GM NAS SPRAY NASAL ×2 (09:43→20:57)
[2017-09-22] MEDS: ALBUTEROL HFA 8 GM INHALER INH ×4 (10:40→20:39)
[2017-09-22] MEDS: hydrALAzine 20 MG INJ IV ×2 (11:18→19:06)
[2017-09-22] MEDS: SOD FERRIC GLUC COMPLX 125 MG in SOD CHLORIDE 0.9% 100 ML IVPB (17:43)
[2017-09-22] MEDS: MONTELUKAST 10 MG TAB PO (20:55)
[2017-09-23] MEDS: ACETAMINOPHEN 325 MG TAB PO (03:07)
[2017-09-23 05:28] LABS: ADD MAN DIFF? NO
[2017-09-23] MEDS: PANTOPRAZOLE 40 MG INJ IV (05:35)
[2017-09-23] MEDS: METHYLPREDNISOLONE 40 MG INJ IV ×3 (05:36→21:57)
[2017-09-23 05:37] LABS: ABNORMAL IP MESSAGE 1; HEMATOCRIT 25.2 % (37.0-47.0); HEMOGLOBIN 8.4 g/dl (12.0-16.0); LYMPHOCYTES # 0.2 10^3/ul (0.8-2.9); LYMPHOCYTES % 3.4 % (15.0-51.0); MEAN CORPUSCULAR HEMOGLOBIN 30.5 pg (29.0-33.0); MEAN CORPUSCULAR HGB CONC 33.3 g/dl (32.0-37.0); MEAN CORPUSCULAR VOLUME 91.6 fl (82.0-101.0); MEAN PLATELET VOLUME 11.5 fl (7.4-10.4); MONOCYTE # 0.7 10^3/ul (0.3-0.9); MONOCYTES % 9.9 % (0.0-11.0); NEUTROPHIL # 6.2 10^3/ul (1.6-7.5); NEUTROPHILS % 86.1 % (39.0-77.0); NUCLEATED RED BLOOD CELLS% 0.4 /100WBC (0.0-0.0); PLATELET COUNT 76 10^3/UL (140-415); RED BLOOD COUNT 2.75 10^6/ul (4.20-5.40); RED CELL DISTRIBUTION WIDTH 17.4 % (11.5-14.5)
[2017-09-23 05:37] LABS: WHITE BLOOD COUNT 7.2 10^3/ul (4.8-10.8)
[2017-09-23] MEDS: NPH, HUMAN INSULIN ISOPHANE 3ML VIAL SC ×3 (05:43→22:18)
[2017-09-23] MEDS: INSULIN ASPART [NOVOLOG] 3 ML PEN SC ×3 (05:47→18:00)
[2017-09-23 05:51] LABS: POSITIVE DIFF @See below
[2017-09-23 06:19] LABS: ALANINE AMINOTRANSFERASE 190 IU/L (13-69); ALBUMIN 2.9 g/dl (3.3-4.9); ALBUMIN/GLOBULIN RATIO 1.31; ALKALINE PHOSPHATASE 181 IU/L (42-121); ASPARTATE AMINO TRANSFERASE 221 IU/L (15-46); BILIRUBIN,INDIRECT 1.4 mg/dl (0-1.1); BILIRUBIN,TOTAL 1.6 mg/dl (0.2-1.3); BLOOD UREA NITROGEN 112 mg/dl (7-20); CALCIUM 10.1 mg/dl (8.4-10.2); CHLORIDE 95 mmol/L (97-110); GLUCOSE 103 mg/dl (70-220); POTASSIUM 3.6 mmol/L (3.5-5.1); SODIUM 142 mmol/L (135-144); TOTAL PROTEIN 5.1 g/dl (6.1-8.1)
[2017-09-23 07:06] LABS: ANION GAP 9 (8-16)
[2017-09-23 07:09] LABS: CARBON DIOXIDE 42 mmol/L (21-31)
[2017-09-23] MEDS ORDERED: FLUCONAZOLE 200 MG (PMX) 100 ML IVPB (08:00)
[2017-09-23] MEDS: RIFAXIMIN 550 MG TAB PO ×2 (08:08→21:57)
[2017-09-23] MEDS: SUCRALFATE 1 GM TAB PO ×4 (08:08→21:56)
[2017-09-23] MEDS: METOLAZONE 5 MG TAB PO (08:08)
[2017-09-23] MEDS: VITAMIN A & D 5 GM OINT PACKET TOP ×2 (08:08→21:57)
[2017-09-23] MEDS: MEROPENEM 500MG/50 ML (PMX) 50 ML IVPB ×2 (08:52→21:56)
[2017-09-23] MEDS: NYSTATIN/TRIAMCINOLONE 15 GM CR TOP (08:53)
[2017-09-23] MEDS: FLUTICASONE 0.05% 16 GM NAS SPRAY NASAL ×2 (08:53→21:56)
[2017-09-23] MEDS: NYSTATIN 30 GM POWDER BTL TOP ×2 (08:53→21:57)
[2017-09-23] MEDS: LACTULOSE 30ML CUP NGT ×3 (08:53→21:00)
[2017-09-23 09:18] LABS: AADO2 Arterial 83.1 mmHg (7.0-24.0); Allen Test ACCEPTAB; Arterial Base Excess 13.8 mmol/L (-3.0-3); Arterial Blood Gas Oxygen Sat 95.3 mmHG (95.0-100.0); Arterial COHb 0.2 % (0.0-3.0); Arterial Fraction of Oxyhgb 94.9 % (93.0-99.0); Arterial HCO3 37.8 mmol/L (22.0-26.0); Arterial MetHb 0.2 % (0.0-1.5); Arterial Total Hemglobin 9.5 g/dl (12.0-18.0); Arterial pCO2 45.8 mmhg (35-45); MODE VENT - AC; Site Right Radial
[2017-09-23] MEDS: ALBUTEROL HFA 8 GM INHALER INH ×4 (09:28→21:02)
[2017-09-23] MEDS: L ACIDOPHIL/B LACTIS/B LONGUM CAPSULE PO ×2 (12:09→21:56)
[2017-09-23] MEDS: POTASSIUM CHLORIDE 20 MEQ POWDER FOR ORAL SOLN GTB (12:10)
[2017-09-23] MEDS: hydrALAzine 20 MG INJ IV ×2 (12:20→23:07)
[2017-09-23] MEDS: AL HYDROX/MG HYDROX/SIMETH 30 ML CUP PO (13:04)
[2017-09-23] MEDS: LIDOCAINE 2% VISC 15 ML CUP PO (15:23)
[2017-09-23] MEDS: SOD FERRIC GLUC COMPLX 125 MG in SOD CHLORIDE 0.9% 100 ML IVPB (17:56)
[2017-09-23] MEDS: RANITIDINE 150 MG TAB PO (21:57)
[2017-09-23] MEDS: MONTELUKAST 10 MG TAB PO (21:57)
[2017-09-24] MEDS: AL HYDROX/MG HYDROX/SIMETH 30 ML CUP PO (02:35)
[2017-09-24] MEDS: METHYLPREDNISOLONE 40 MG INJ IV ×3 (05:56→20:58)
[2017-09-24] MEDS: PANTOPRAZOLE 40 MG INJ IV (05:56)
[2017-09-24] MEDS: INSULIN ASPART [NOVOLOG] 3 ML PEN SC ×4 (06:00→18:53)
[2017-09-24 06:17] LABS: ADD MAN DIFF? NO
[2017-09-24 06:22] LABS: WHITE BLOOD COUNT 6.2 10^3/ul (4.8-10.8)
[2017-09-24 06:22] LABS: ABNORMAL IP MESSAGE 1; HEMATOCRIT 23.8 % (37.0-47.0); HEMOGLOBIN 7.7 g/dl (12.0-16.0); LYMPHOCYTES # 0.3 10^3/ul (0.8-2.9); MEAN CORPUSCULAR HEMOGLOBIN 30.2 pg (29.0-33.0); MEAN CORPUSCULAR HGB CONC 32.4 g/dl (32.0-37.0); MEAN CORPUSCULAR VOLUME 93.3 fl (82.0-101.0); MEAN PLATELET VOLUME 11.9 fl (7.4-10.4); MONOCYTE # 0.6 10^3/ul (0.3-0.9); MONOCYTES % 10.2 % (0.0-11.0); NEUTROPHIL # 5.2 10^3/ul (1.6-7.5); NUCLEATED RED BLOOD CELLS # 0.1 10^3/ul (0.0-0.0); NUCLEATED RED BLOOD CELLS% 0.8 /100WBC (0.0-0.0); PLATELET COUNT 66 10^3/UL (140-415); RED BLOOD COUNT 2.55 10^6/ul (4.20-5.40)
[2017-09-24] MEDS: NPH, HUMAN INSULIN ISOPHANE 3ML VIAL SC ×2 (06:23→21:10)
[2017-09-24 06:27] LABS: POSITIVE DIFF @See below
[2017-09-24 06:45] LABS: MAGNESIUM 1.9 mg/dl (1.7-2.5)
[2017-09-24 06:48] LABS: ALANINE AMINOTRANSFERASE 159 IU/L (13-69); ALBUMIN 2.7 g/dl (3.3-4.9); ALBUMIN/GLOBULIN RATIO 1.28; ALKALINE PHOSPHATASE 158 IU/L (42-121); ANION GAP 6 (8-16); ASPARTATE AMINO TRANSFERASE 172 IU/L (15-46); BILIRUBIN,INDIRECT 1.3 mg/dl (0-1.1); BILIRUBIN,TOTAL 1.3 mg/dl (0.2-1.3); BLOOD UREA NITROGEN 119 mg/dl (7-20); CALCIUM 9.6 mg/dl (8.4-10.2); CARBON DIOXIDE 39 mmol/L (21-31); CHLORIDE 98 mmol/L (97-110); CREATININE 1.09 mg/dl (0.44-1.00); GLUCOSE 119 mg/dl (70-220); LIPASE 398 U/L (23-300); POTASSIUM 3.9 mmol/L (3.5-5.1); SODIUM 139 mmol/L (135-144); TOTAL PROTEIN 4.8 g/dl (6.1-8.1)
[2017-09-24 06:57] LABS: AMMONIA < 9 umol/l (9-30)
[2017-09-24 07:08] LABS: CREATINE KINASE < 20 IU/L (23-200)
[2017-09-24 08:40] LABS: Allen Test ACCEPTAB; Arterial Base Excess 15.7 mmol/L (-3.0-3); Arterial COHb 0.3 % (0.0-3.0); Arterial Fraction of Oxyhgb 95.4 % (93.0-99.0); Arterial HCO3 39.7 mmol/L (22.0-26.0); Arterial MetHb 0.3 % (0.0-1.5); Arterial Total Hemglobin 9.2 g/dl (12.0-18.0); Arterial pCO2 46.5 mmhg (35-45); Blood Gas PS 10; MODE VENT - CPAP; Site Right Radial
[2017-09-24] MEDS: SILVER SULFADIAZINE 1% 25 GM CR TOP (09:00)
[2017-09-24] MEDS: VITAMIN A & D 5 GM OINT PACKET TOP ×2 (09:00→20:58)
[2017-09-24] MEDS: LACTULOSE 30ML CUP NGT ×3 (09:00→21:00)
[2017-09-24 09:47] LABS: LIPASE 440 U/L (23-300)
[2017-09-24 09:48] LABS: PHOSPHORUS 3.1 mg/dl (2.5-4.9)
[2017-09-24] MEDS: L ACIDOPHIL/B LACTIS/B LONGUM CAPSULE PO ×2 (09:59→20:57)
[2017-09-24] MEDS: RANITIDINE 150 MG TAB PO ×2 (09:59→20:57)
[2017-09-24] MEDS: SUCRALFATE 1 GM TAB PO ×4 (09:59→20:57)
[2017-09-24] MEDS: NYSTATIN 30 GM POWDER BTL TOP ×2 (10:01→20:58)
[2017-09-24] MEDS: NYSTATIN/TRIAMCINOLONE 15 GM CR TOP (10:01)
[2017-09-24] MEDS: FLUTICASONE 0.05% 16 GM NAS SPRAY NASAL ×2 (10:02→20:57)
[2017-09-24] MEDS: ALBUTEROL HFA 8 GM INHALER INH ×2 (11:29→13:00)
[2017-09-24] MEDS: MEROPENEM 500MG/50 ML (PMX) 50 ML IVPB ×2 (12:51→20:57)
[2017-09-24] MEDS: DEXTROSE 50% 50 ML SYRINGE IV (13:22)
[2017-09-24] MEDS: ACETAMINOPHEN 325 MG TAB PO (13:38)
[2017-09-24] MEDS: DIPHENHYDRAMINE 50 MG INJ IV (13:38)
[2017-09-24 14:00] LABS: IMMEDIATE SPIN CROSSMATCH 1 1
[2017-09-24] MEDS: ALBUTEROL/IPRATROPIUM (NEB) 3 ML AMP HHN ×2 (16:23→21:38)
[2017-09-24] MEDS: MONTELUKAST 10 MG TAB PO (20:57)
[2017-09-24] MEDS: RIFAXIMIN 550 MG TAB PO (20:57)
[2017-09-25] MEDS: INSULIN ASPART [NOVOLOG] 3 ML PEN SC ×6 (00:27→20:24)
[2017-09-25] MEDS: ALBUTEROL/IPRATROPIUM (NEB) 3 ML AMP HHN ×6 (00:58→20:59)
[2017-09-25] MEDS: ACETAMINOPHEN 325 MG TAB PO (03:40)
[2017-09-25 04:58] LABS: ADD MAN DIFF? NO
[2017-09-25 05:01] LABS: ABNORMAL IP MESSAGE 1; BASOPHILS % 0.1 % (0.0-2.0); HEMATOCRIT 31.8 % (37.0-47.0); HEMOGLOBIN 10.4 g/dl (12.0-16.0); LYMPHOCYTES # 0.3 10^3/ul (0.8-2.9); MEAN CORPUSCULAR HEMOGLOBIN 30.6 pg (29.0-33.0); MEAN CORPUSCULAR HGB CONC 32.7 g/dl (32.0-37.0); MEAN CORPUSCULAR VOLUME 93.5 fl (82.0-101.0); MEAN PLATELET VOLUME 11.1 fl (7.4-10.4); MONOCYTE # 0.8 10^3/ul (0.3-0.9); MONOCYTES % 9.9 % (0.0-11.0); NEUTROPHILS % 85.3 % (39.0-77.0); NUCLEATED RED BLOOD CELLS # 0.1 10^3/ul (0.0-0.0); NUCLEATED RED BLOOD CELLS% 0.6 /100WBC (0.0-0.0); PLATELET COUNT 65 10^3/UL (140-415); RED CELL DISTRIBUTION WIDTH 17.1 % (11.5-14.5)
[2017-09-25 05:01] LABS: WHITE BLOOD COUNT 8.3 10^3/ul (4.8-10.8)
[2017-09-25 05:03] LABS: POSITIVE DIFF @See below
[2017-09-25 05:20] LABS: AMMONIA 24 umol/l (9-30)
[2017-09-25 05:30] LABS: ALANINE AMINOTRANSFERASE 180 IU/L (13-69); ALBUMIN 2.8 g/dl (3.3-4.9); ALBUMIN/GLOBULIN RATIO 1.21; ALKALINE PHOSPHATASE 190 IU/L (42-121); ANION GAP 9 (8-16); ASPARTATE AMINO TRANSFERASE 177 IU/L (15-46); BILIRUBIN,INDIRECT 1.2 mg/dl (0-1.1); BILIRUBIN,TOTAL 1.2 mg/dl (0.2-1.3); BLOOD UREA NITROGEN 109 mg/dl (7-20); CALCIUM 9.9 mg/dl (8.4-10.2); CARBON DIOXIDE 38 mmol/L (21-31); CHLORIDE 99 mmol/L (97-110); CREATININE 1.07 mg/dl (0.44-1.00); GLUCOSE 142 mg/dl (70-220); MAGNESIUM 2.1 mg/dl (1.7-2.5); POTASSIUM 4.1 mmol/L (3.5-5.1); SODIUM 142 mmol/L (135-144); TOTAL PROTEIN 5.1 g/dl (6.1-8.1)
[2017-09-25] MEDS: PANTOPRAZOLE 40 MG INJ IV (05:39)
[2017-09-25] MEDS: METHYLPREDNISOLONE 40 MG INJ IV (05:39)
[2017-09-25] MEDS: NPH, HUMAN INSULIN ISOPHANE 3ML VIAL SC (05:42)
[2017-09-25] MEDS: SUCRALFATE 1 GM TAB PO ×4 (05:42→20:17)
[2017-09-25] MEDS: VITAMIN A & D 5 GM OINT PACKET TOP ×2 (08:17→20:18)
[2017-09-25] MEDS: NYSTATIN 30 GM POWDER BTL TOP ×2 (08:17→20:18)
[2017-09-25] MEDS: RIFAXIMIN 550 MG TAB PO ×2 (08:17→20:17)
[2017-09-25] MEDS: NYSTATIN/TRIAMCINOLONE 15 GM CR TOP (08:18)
[2017-09-25] MEDS: SILVER SULFADIAZINE 1% 25 GM CR TOP (08:18)
[2017-09-25] MEDS: FLUTICASONE 0.05% 16 GM NAS SPRAY NASAL ×2 (09:10→21:00)
[2017-09-25] MEDS: RANITIDINE 150 MG TAB PO ×2 (09:16→20:17)
[2017-09-25] MEDS: L ACIDOPHIL/B LACTIS/B LONGUM CAPSULE PO ×2 (09:16→20:17)
[2017-09-25] MEDS: LACTULOSE 30ML CUP PO (09:16)
[2017-09-25] MEDS: INSULIN DETEMIR [LEVEMIR] (100 UNITS/ML) SYG SC ×2 (10:58→20:26)
[2017-09-25] MEDS: ALTEPLASE (CATHFLO) 2 MG INJ CATHETER ×2 (11:19→16:38)
[2017-09-25] MEDS: MONTELUKAST 10 MG TAB PO (20:17)
[2017-09-26] MEDS: INSULIN ASPART [NOVOLOG] 3 ML PEN SC ×6 (01:00→20:40)
[2017-09-26] MEDS: ALBUTEROL/IPRATROPIUM (NEB) 3 ML AMP HHN ×6 (01:00→21:11)
[2017-09-26 04:55] LABS: ADD MAN DIFF? NO
[2017-09-26 04:57] LABS: ABNORMAL IP MESSAGE 1; BASOPHILS % 0.1 % (0.0-2.0); EOSINOPHILS % 0.1 % (0.0-7.0); HEMATOCRIT 29.1 % (37.0-47.0); HEMOGLOBIN 9.5 g/dl (12.0-16.0); LYMPHOCYTES # 0.3 10^3/ul (0.8-2.9); LYMPHOCYTES % 3.9 % (15.0-51.0); MEAN CORPUSCULAR HEMOGLOBIN 31.1 pg (29.0-33.0); MEAN CORPUSCULAR HGB CONC 32.6 g/dl (32.0-37.0); MEAN CORPUSCULAR VOLUME 95.4 fl (82.0-101.0); MONOCYTE # 0.8 10^3/ul (0.3-0.9); MONOCYTES % 10.2 % (0.0-11.0); NEUTROPHIL # 6.3 10^3/ul (1.6-7.5); NEUTROPHILS % 84.9 % (39.0-77.0); NUCLEATED RED BLOOD CELLS # 0.1 10^3/ul (0.0-0.0); NUCLEATED RED BLOOD CELLS% 0.9 /100WBC (0.0-0.0); PLATELET COUNT 59 10^3/UL (140-415); RED BLOOD COUNT 3.05 10^6/ul (4.20-5.40); RED CELL DISTRIBUTION WIDTH 17.2 % (11.5-14.5)
[2017-09-26 04:57] LABS: WHITE BLOOD COUNT 7.4 10^3/ul (4.8-10.8)
[2017-09-26] MEDS: PANTOPRAZOLE 40 MG INJ IV (05:00)
[2017-09-26 05:23] LABS: AMMONIA 19 umol/l (9-30)
[2017-09-26 05:24] LABS: ALANINE AMINOTRANSFERASE 176 IU/L (13-69); ALBUMIN 2.4 g/dl (3.3-4.9); ALBUMIN/GLOBULIN RATIO 1.14; ALKALINE PHOSPHATASE 179 IU/L (42-121); ASPARTATE AMINO TRANSFERASE 160 IU/L (15-46); BLOOD UREA NITROGEN 98 mg/dl (7-20); CALCIUM 9.8 mg/dl (8.4-10.2); CHLORIDE 101 mmol/L (97-110); CREATININE 1.01 mg/dl (0.44-1.00); GLUCOSE 80 mg/dl (70-220); MAGNESIUM 2.1 mg/dl (1.7-2.5); POTASSIUM 3.7 mmol/L (3.5-5.1); SODIUM 144 mmol/L (135-144); TOTAL PROTEIN 4.5 g/dl (6.1-8.1)
[2017-09-26 05:45] LABS: ANION GAP 4 (8-16)
[2017-09-26 05:46] LABS: CARBON DIOXIDE 43 mmol/L (21-31)
[2017-09-26 05:53] LABS: POSITIVE DIFF @See below
[2017-09-26] MEDS: SUCRALFATE 1 GM TAB PO ×4 (06:07→20:35)
[2017-09-26 06:16] LABS: AADO2 Arterial 67.2 mmHg (7.0-24.0); Allen Test ACCEPTAB; Arterial Base Excess 14.6 mmol/L (-3.0-3); Arterial Blood Gas Oxygen Sat 96.2 mmHG (95.0-100.0); Arterial COHb 0.3 % (0.0-3.0); Arterial Fraction of Oxyhgb 95.7 % (93.0-99.0); Arterial HCO3 39.7 mmol/L (22.0-26.0); Arterial MetHb 0.2 % (0.0-1.5); Arterial Total Hemglobin 10.6 g/dl (12.0-18.0); Arterial pCO2 51.8 mmhg (35-45); MODE NASAL CANNULA; Site Right Radial
[2017-09-26] MEDS: L ACIDOPHIL/B LACTIS/B LONGUM CAPSULE PO ×2 (08:49→20:42)
[2017-09-26] MEDS: RANITIDINE 150 MG TAB PO ×2 (08:49→20:35)
[2017-09-26] MEDS: VITAMIN A & D 5 GM OINT PACKET TOP ×2 (08:50→20:35)
[2017-09-26] MEDS: predniSONE 5 MG TAB NGT (08:50)
[2017-09-26] MEDS: RIFAXIMIN 550 MG TAB PO ×2 (08:50→20:35)
[2017-09-26] MEDS: LACTULOSE 30ML CUP PO (08:51)
[2017-09-26] MEDS: NYSTATIN/TRIAMCINOLONE 15 GM CR TOP (08:52)
[2017-09-26] MEDS: NYSTATIN 30 GM POWDER BTL TOP ×2 (08:52→20:35)
[2017-09-26] MEDS: SILVER SULFADIAZINE 1% 25 GM CR TOP (08:53)
[2017-09-26] MEDS: FLUTICASONE 0.05% 16 GM NAS SPRAY NASAL ×2 (08:54→20:37)
[2017-09-26] MEDS: NPH, HUMAN INSULIN ISOPHANE 3ML VIAL SC (09:01)
[2017-09-26] MEDS: INSULIN DETEMIR [LEVEMIR] (100 UNITS/ML) SYG SC ×2 (09:03→20:40)
[2017-09-26] MEDS: SOD CHLORIDE 0.45% 1,000 ML IV ×2 (09:05→22:35)
[2017-09-26] MEDS: ACETAMINOPHEN 325 MG TAB PO (18:35)
[2017-09-26] MEDS: MONTELUKAST 10 MG TAB PO (20:35)
[2017-09-26] MEDS: LORAZEPAM 2 MG INJ IV (22:42)
[2017-09-27] MEDS: INSULIN ASPART [NOVOLOG] 3 ML PEN SC ×6 (01:00→20:41)
[2017-09-27] MEDS: ALBUTEROL/IPRATROPIUM (NEB) 3 ML AMP HHN ×6 (01:00→21:36)
[2017-09-27] MEDS: DEXTROSE 50% 50 ML SYRINGE IV (01:29)
[2017-09-27] MEDS: ACETAMINOPHEN 325 MG TAB PO ×2 (02:08→11:32)
[2017-09-27 04:57] LABS: ADD MAN DIFF? NO
[2017-09-27 05:01] LABS: WHITE BLOOD COUNT 5.8 10^3/ul (4.8-10.8)
[2017-09-27 05:01] LABS: ABNORMAL IP MESSAGE 1; EOSINOPHILS # 0.1 10^3/ul (0.0-0.5); HEMATOCRIT 26.7 % (37.0-47.0); HEMOGLOBIN 8.7 g/dl (12.0-16.0); LYMPHOCYTES # 0.3 10^3/ul (0.8-2.9); LYMPHOCYTES % 5.9 % (15.0-51.0); MEAN CORPUSCULAR HEMOGLOBIN 31.3 pg (29.0-33.0); MEAN CORPUSCULAR HGB CONC 32.6 g/dl (32.0-37.0); MEAN PLATELET VOLUME 11.5 fl (7.4-10.4); MONOCYTE # 0.5 10^3/ul (0.3-0.9); MONOCYTES % 8.3 % (0.0-11.0); NEUTROPHIL # 4.9 10^3/ul (1.6-7.5); NEUTROPHILS % 83.9 % (39.0-77.0); NUCLEATED RED BLOOD CELLS% 0.7 /100WBC (0.0-0.0); PLATELET COUNT 51 10^3/UL (140-415); RED BLOOD COUNT 2.78 10^6/ul (4.20-5.40); RED CELL DISTRIBUTION WIDTH 17.2 % (11.5-14.5)
[2017-09-27] MEDS: PANTOPRAZOLE 40 MG INJ IV (05:04)
[2017-09-27 05:21] LABS: POSITIVE DIFF @See below
[2017-09-27 05:48] LABS: AMMONIA 22 umol/l (9-30)
[2017-09-27 05:52] LABS: ALANINE AMINOTRANSFERASE 210 IU/L (13-69); ALBUMIN 2.2 g/dl (3.3-4.9); ALKALINE PHOSPHATASE 184 IU/L (42-121); ANION GAP 8 (8-16); ASPARTATE AMINO TRANSFERASE 210 IU/L (15-46); BILIRUBIN,INDIRECT 0.8 mg/dl (0-1.1); BILIRUBIN,TOTAL 0.8 mg/dl (0.2-1.3); BLOOD UREA NITROGEN 87 mg/dl (7-20); CALCIUM 9.2 mg/dl (8.4-10.2); CARBON DIOXIDE 37 mmol/L (21-31); CHLORIDE 97 mmol/L (97-110); CREATININE 0.94 mg/dl (0.44-1.00); GLUCOSE 91 mg/dl (70-220); MAGNESIUM 1.9 mg/dl (1.7-2.5); POTASSIUM 3.8 mmol/L (3.5-5.1); SODIUM 138 mmol/L (135-144); TOTAL PROTEIN 4.4 g/dl (6.1-8.1)
[2017-09-27] MEDS: SUCRALFATE 1 GM TAB PO ×4 (06:30→20:55)
[2017-09-27] MEDS: VITAMIN A & D 5 GM OINT PACKET TOP ×2 (08:46→20:55)
[2017-09-27] MEDS: predniSONE 5 MG TAB NGT (08:46)
[2017-09-27] MEDS: LACTULOSE 30ML CUP PO (08:46)
[2017-09-27] MEDS: RANITIDINE 150 MG TAB PO (08:47)
[2017-09-27] MEDS: SILVER SULFADIAZINE 1% 25 GM CR TOP (08:47)
[2017-09-27] MEDS: RIFAXIMIN 550 MG TAB PO ×2 (08:47→20:55)
[2017-09-27] MEDS: NYSTATIN/TRIAMCINOLONE 15 GM CR TOP (08:48)
[2017-09-27] MEDS: NYSTATIN 30 GM POWDER BTL TOP ×2 (08:48→20:56)
[2017-09-27] MEDS: FLUTICASONE 0.05% 16 GM NAS SPRAY NASAL ×2 (08:48→20:57)
[2017-09-27] MEDS: L ACIDOPHIL/B LACTIS/B LONGUM CAPSULE PO ×2 (08:52→20:54)
[2017-09-27] MEDS: INSULIN DETEMIR [LEVEMIR] (100 UNITS/ML) SYG SC ×2 (10:20→20:40)
[2017-09-27] MEDS: hydrALAzine 20 MG INJ IV (18:24)
[2017-09-27] MEDS: MONTELUKAST 10 MG TAB PO (20:55)
[2017-09-27] MEDS: LORAZEPAM 2 MG INJ IV (23:54)
[2017-09-28] MEDS: INSULIN ASPART [NOVOLOG] 3 ML PEN SC ×6 (00:59→21:01)
[2017-09-28] MEDS: ALBUTEROL/IPRATROPIUM (NEB) 3 ML AMP HHN ×5 (01:00→20:50)
[2017-09-28] MEDS: ACETAMINOPHEN 325 MG TAB PO ×3 (03:24→22:48)
[2017-09-28] MEDS: PANTOPRAZOLE 40 MG INJ IV (05:06)
[2017-09-28] MEDS: LORAZEPAM 2 MG INJ IV ×2 (05:35→22:49)
[2017-09-28] MEDS: SUCRALFATE 1 GM TAB PO ×4 (06:21→20:37)
[2017-09-28 06:54] LABS: ADD MAN DIFF? NO
[2017-09-28 06:58] LABS: WHITE BLOOD COUNT 4.6 10^3/ul (4.8-10.8)
[2017-09-28 06:58] LABS: ABNORMAL IP MESSAGE 1; EOSINOPHILS % 0.9 % (0.0-7.0); HEMATOCRIT 25.1 % (37.0-47.0); HEMOGLOBIN 8.2 g/dl (12.0-16.0); LYMPHOCYTES # 0.4 10^3/ul (0.8-2.9); LYMPHOCYTES % 7.6 % (15.0-51.0); MEAN CORPUSCULAR HEMOGLOBIN 31.7 pg (29.0-33.0); MEAN CORPUSCULAR HGB CONC 32.7 g/dl (32.0-37.0); MEAN CORPUSCULAR VOLUME 96.9 fl (82.0-101.0); MEAN PLATELET VOLUME 11.4 fl (7.4-10.4); MONOCYTE # 0.5 10^3/ul (0.3-0.9); MONOCYTES % 9.8 % (0.0-11.0); NEUTROPHIL # 3.7 10^3/ul (1.6-7.5); NEUTROPHILS % 80.8 % (39.0-77.0); PLATELET COUNT 49 10^3/UL (140-415); RED BLOOD COUNT 2.59 10^6/ul (4.20-5.40); RED CELL DISTRIBUTION WIDTH 17.2 % (11.5-14.5)
[2017-09-28 07:10] LABS: POSITIVE DIFF @See below
[2017-09-28 07:13] LABS: ALANINE AMINOTRANSFERASE 185 IU/L (13-69); ALBUMIN 2.2 g/dl (3.3-4.9); ALBUMIN/GLOBULIN RATIO 0.95; ALKALINE PHOSPHATASE 186 IU/L (42-121); ANION GAP 6 (8-16); ASPARTATE AMINO TRANSFERASE 171 IU/L (15-46); BILIRUBIN,INDIRECT 0.9 mg/dl (0-1.1); BILIRUBIN,TOTAL 0.9 mg/dl (0.2-1.3); BLOOD UREA NITROGEN 87 mg/dl (7-20); CALCIUM 8.9 mg/dl (8.4-10.2); CARBON DIOXIDE 37 mmol/L (21-31); CHLORIDE 98 mmol/L (97-110); CREATININE 1.05 mg/dl (0.44-1.00); GLUCOSE 134 mg/dl (70-220); PHOSPHORUS 2.6 mg/dl (2.5-4.9); POTASSIUM 3.7 mmol/L (3.5-5.1); SODIUM 137 mmol/L (135-144); TOTAL PROTEIN 4.5 g/dl (6.1-8.1)
[2017-09-28] MEDS: L ACIDOPHIL/B LACTIS/B LONGUM CAPSULE PO ×2 (08:28→20:38)
[2017-09-28] MEDS: predniSONE 10 MG TAB PO (08:28)
[2017-09-28] MEDS: RIFAXIMIN 550 MG TAB PO ×2 (08:28→20:37)
[2017-09-28] MEDS: FLUTICASONE 0.05% 16 GM NAS SPRAY NASAL ×2 (08:29→20:36)
[2017-09-28] MEDS: LACTULOSE 30ML CUP PO (08:29)
[2017-09-28] MEDS: NYSTATIN 30 GM POWDER BTL TOP ×2 (08:31→20:36)
[2017-09-28] MEDS: NYSTATIN/TRIAMCINOLONE 15 GM CR TOP (08:31)
[2017-09-28] MEDS: VITAMIN A & D 5 GM OINT PACKET TOP ×2 (08:31→20:36)
[2017-09-28] MEDS: SILVER SULFADIAZINE 1% 25 GM CR TOP (08:32)
[2017-09-28] MEDS: NPH, HUMAN INSULIN ISOPHANE 3ML VIAL SC (08:35)
[2017-09-28] MEDS: INSULIN DETEMIR [LEVEMIR] (100 UNITS/ML) SYG SC ×2 (08:36→21:01)
[2017-09-28] MEDS: MONTELUKAST 10 MG TAB PO (20:37)
[2017-09-29] MEDS: INSULIN ASPART [NOVOLOG] 3 ML PEN SC ×6 (00:23→21:00)
[2017-09-29] MEDS: PANTOPRAZOLE 40 MG INJ IV (05:23)
[2017-09-29 07:08] LABS: ADD MAN DIFF? NO
[2017-09-29 07:16] LABS: WHITE BLOOD COUNT 4.5 10^3/ul (4.8-10.8)
[2017-09-29 07:16] LABS: ABNORMAL IP MESSAGE 1; EOSINOPHILS % 0.7 % (0.0-7.0); HEMATOCRIT 24.7 % (37.0-47.0); LYMPHOCYTES # 0.3 10^3/ul (0.8-2.9); LYMPHOCYTES % 7.6 % (15.0-51.0); MEAN CORPUSCULAR HGB CONC 32.4 g/dl (32.0-37.0); MEAN CORPUSCULAR VOLUME 95.7 fl (82.0-101.0); MEAN PLATELET VOLUME 11.7 fl (7.4-10.4); MONOCYTE # 0.6 10^3/ul (0.3-0.9); MONOCYTES % 13.9 % (0.0-11.0); NEUTROPHIL # 3.4 10^3/ul (1.6-7.5); NEUTROPHILS % 76.9 % (39.0-77.0); PLATELET COUNT 43 10^3/UL (140-415); RED BLOOD COUNT 2.58 10^6/ul (4.20-5.40); RED CELL DISTRIBUTION WIDTH 16.9 % (11.5-14.5)
[2017-09-29 07:27] LABS: POSITIVE DIFF @See below
[2017-09-29 08:09] LABS: ALANINE AMINOTRANSFERASE 146 IU/L (13-69); ALBUMIN 2.2 g/dl (3.3-4.9); ALBUMIN/GLOBULIN RATIO 0.91; ALKALINE PHOSPHATASE 181 IU/L (42-121); ANION GAP 4 (8-16); ASPARTATE AMINO TRANSFERASE 106 IU/L (15-46); BILIRUBIN,INDIRECT 0.9 mg/dl (0-1.1); BILIRUBIN,TOTAL 0.9 mg/dl (0.2-1.3); BLOOD UREA NITROGEN 72 mg/dl (7-20); CALCIUM 9.1 mg/dl (8.4-10.2); CARBON DIOXIDE 39 mmol/L (21-31); CHLORIDE 100 mmol/L (97-110); CREATININE 0.86 mg/dl (0.44-1.00); GLUCOSE 97 mg/dl (70-220); POTASSIUM 3.9 mmol/L (3.5-5.1); SODIUM 139 mmol/L (135-144); TOTAL PROTEIN 4.6 g/dl (6.1-8.1)
[2017-09-29] MEDS: RIFAXIMIN 550 MG TAB PO ×2 (08:39→21:53)
[2017-09-29] MEDS: SUCRALFATE 1 GM TAB PO ×4 (08:39→21:52)
[2017-09-29] MEDS: FLUTICASONE 0.05% 16 GM NAS SPRAY NASAL ×2 (08:41→21:54)
[2017-09-29] MEDS: LACTULOSE 30ML CUP PO (08:41)
[2017-09-29] MEDS: L ACIDOPHIL/B LACTIS/B LONGUM CAPSULE PO ×2 (08:41→21:52)
[2017-09-29] MEDS: NYSTATIN 30 GM POWDER BTL TOP ×2 (08:42→21:54)
[2017-09-29] MEDS: VITAMIN A & D 5 GM OINT PACKET TOP ×2 (08:42→21:52)
[2017-09-29] MEDS: predniSONE 10 MG TAB PO (08:42)
[2017-09-29] MEDS: NYSTATIN/TRIAMCINOLONE 15 GM CR TOP (08:42)
[2017-09-29] MEDS: INSULIN DETEMIR [LEVEMIR] (100 UNITS/ML) SYG SC ×2 (08:48→22:10)
[2017-09-29] MEDS: NPH, HUMAN INSULIN ISOPHANE 3ML VIAL SC (08:49)
[2017-09-29] MEDS: ALBUTEROL/IPRATROPIUM (NEB) 3 ML AMP HHN ×4 (09:33→20:32)
[2017-09-29] MEDS: SILVER SULFADIAZINE 1% 25 GM CR TOP (11:19)
[2017-09-29] MEDS: MONTELUKAST 10 MG TAB PO (21:52)
[2017-09-30] MEDS: INSULIN ASPART [NOVOLOG] 3 ML PEN SC ×6 (01:00→21:00)
[2017-09-30] MEDS: DEXTROSE 50% 50 ML SYRINGE IV (05:52)
[2017-09-30] MEDS: PANTOPRAZOLE 40 MG INJ IV (05:52)
[2017-09-30 06:21] LABS: ABNORMAL IP MESSAGE 1; HEMATOCRIT 23.6 % (37.0-47.0); HEMOGLOBIN 7.5 g/dl (12.0-16.0); MEAN CORPUSCULAR HEMOGLOBIN 30.9 pg (29.0-33.0); MEAN CORPUSCULAR HGB CONC 31.8 g/dl (32.0-37.0); MEAN CORPUSCULAR VOLUME 97.1 fl (82.0-101.0); MEAN PLATELET VOLUME 11.5 fl (7.4-10.4); PLATELET COUNT 49 10^3/UL (140-415); RED BLOOD COUNT 2.43 10^6/ul (4.20-5.40); RED CELL DISTRIBUTION WIDTH 17.1 % (11.5-14.5)
[2017-09-30 06:21] LABS: WHITE BLOOD COUNT 3.9 10^3/ul (4.8-10.8)
[2017-09-30 06:27] LABS: ADD MAN DIFF? YES; POSITIVE DIFF @See below
[2017-09-30 06:41] LABS: BLOOD UREA NITROGEN 56 mg/dl (7-20); CHLORIDE 101 mmol/L (97-110); CREATININE 0.83 mg/dl (0.44-1.00); GLUCOSE 76 mg/dl (70-220); POTASSIUM 3.8 mmol/L (3.5-5.1); SODIUM 141 mmol/L (135-144)
[2017-09-30 06:49] LABS: ANION GAP 3 (8-16)
[2017-09-30 06:51] LABS: CARBON DIOXIDE 41 mmol/L (21-31)
[2017-09-30] MEDS: NYSTATIN/TRIAMCINOLONE 15 GM CR TOP (08:31)
[2017-09-30] MEDS: NYSTATIN 30 GM POWDER BTL TOP ×2 (08:31→21:39)
[2017-09-30] MEDS: SILVER SULFADIAZINE 1% 25 GM CR TOP (09:00)
[2017-09-30 09:14] LABS: ANISOCYTOSIS 1+ (0-0); BAND NEUTROPHILS #M 0.3 10^3/ul (0.0-0.6); BAND NEUTROPHILS % (M) 9 % (0-4); BASOPHILS % (M) 1 % (0-2); EOSINOPHILS % (M) 1 % (0-7); HYPOCHROMASIA 1+ (0-0); LYMPHOCYTES #M 0.4 10^3/ul (0.8-2.9); LYMPHOCYTES % (M) 11 % (15-51); MONOCYTE #M 0.2 10^3/ul (0.3-0.9); MONOCYTES % (M) 7 % (0-11); PLATELET ESTIMATE DECREASED; POLYCHROMASIA 2+ (0-0); SEG NEUT #M 2.7 10^3/ul (1.6-7.5); SEGMENTED NEUTROPHILS (M) % 70 % (39-77); SMUDGE%M 7 % (0-0)
[2017-09-30] MEDS: LACTULOSE 30ML CUP PO (09:21)
[2017-09-30] MEDS: predniSONE 10 MG TAB PO (09:22)
[2017-09-30] MEDS: SUCRALFATE 1 GM TAB PO ×4 (09:22→21:38)
[2017-09-30] MEDS: FLUTICASONE 0.05% 16 GM NAS SPRAY NASAL ×2 (09:23→21:39)
[2017-09-30] MEDS: RIFAXIMIN 550 MG TAB PO ×2 (09:23→21:38)
[2017-09-30] MEDS: VITAMIN A & D 5 GM OINT PACKET TOP ×2 (09:24→21:38)
[2017-09-30] MEDS: ALBUTEROL/IPRATROPIUM (NEB) 3 ML AMP HHN ×4 (09:58→21:44)
[2017-09-30] MEDS: L ACIDOPHIL/B LACTIS/B LONGUM CAPSULE PO ×2 (10:36→21:38)
[2017-09-30] MEDS: NPH, HUMAN INSULIN ISOPHANE 3ML VIAL SC (10:41)
[2017-09-30] MEDS: INSULIN DETEMIR [LEVEMIR] (100 UNITS/ML) SYG SC ×2 (13:19→21:44)
[2017-09-30 16:01] LABS: AADO2 Arterial 82.8 mmHg (7.0-24.0); Allen Test ACCEPTAB; Arterial Base Excess 9.7 mmol/L (-3.0-3); Arterial Blood Gas Oxygen Sat 94.7 mmHG (95.0-100.0); Arterial COHb 0.7 % (0.0-3.0); Arterial Fraction of Oxyhgb 93.8 % (93.0-99.0); Arterial HCO3 34.8 mmol/L (22.0-26.0); Arterial MetHb 0.3 % (0.0-1.5); Arterial Total Hemglobin 13.3 g/dl (12.0-18.0); Arterial pCO2 48.8 mmhg (35-45); MODE NASAL CANNULA; Site Right Radial
[2017-09-30 16:33] LABS: ABNORMAL IP MESSAGE 1; ADD MAN DIFF? NO; HEMOGLOBIN 7.3 g/dl (12.0-16.0); LYMPHOCYTES # 0.4 10^3/ul (0.8-2.9); LYMPHOCYTES % 10.7 % (15.0-51.0); MEAN CORPUSCULAR HEMOGLOBIN 32.6 pg (29.0-33.0); MEAN CORPUSCULAR HGB CONC 33.2 g/dl (32.0-37.0); MEAN CORPUSCULAR VOLUME 98.2 fl (82.0-101.0); MEAN PLATELET VOLUME 10.1 fl (7.4-10.4); MONOCYTE # 0.5 10^3/ul (0.3-0.9); MONOCYTES % 14.6 % (0.0-11.0); NEUTROPHIL # 2.7 10^3/ul (1.6-7.5); NEUTROPHILS % 74.2 % (39.0-77.0); PLATELET COUNT 49 10^3/UL (140-415); RED BLOOD COUNT 2.24 10^6/ul (4.20-5.40)
[2017-09-30 16:33] LABS: WHITE BLOOD COUNT 3.6 10^3/ul (4.8-10.8)
[2017-09-30 16:44] LABS: POSITIVE DIFF @See below
[2017-09-30 16:51] LABS: ANION GAP 4 (8-16); BLOOD UREA NITROGEN 46 mg/dl (7-20); CARBON DIOXIDE 39 mmol/L (21-31); CHLORIDE 101 mmol/L (97-110); CREATININE 0.87 mg/dl (0.44-1.00); GLUCOSE 154 mg/dl (70-220); SODIUM 140 mmol/L (135-144)
[2017-09-30 16:53] LABS: INR 1.07; PT RATIO 1.1
[2017-09-30 16:54] LABS: PARTIAL THROMBOPLASTIN TIME 41.7 Sec (25.0-35.0)
[2017-09-30 17:00] LABS: LACTIC ACID 1.4 mmol/L (0.5-2.0)
[2017-09-30 17:01] LABS: AMMONIA < 9 umol/l (9-30)
[2017-09-30 17:07] LABS: TROPONIN-I 0.137 ng/ml (0.000-0.120)
[2017-09-30] MEDS: hydrALAzine 20 MG INJ IV (17:29)
[2017-09-30] MEDS: EPOETIN 10000 UNITS/ML (NON ESRD/NON ONCOLOGY) SC (17:36)
[2017-09-30] MEDS: SOD CHLORIDE 0.9% 100 ML (19:46)
[2017-09-30] MEDS: IOHEXOL 100 ML (19:46)
[2017-09-30] MEDS: MONTELUKAST 10 MG TAB PO (21:38)
[2017-09-30] MEDS: LORAZEPAM 2 MG INJ IV (22:44)
[2017-09-30 23:37] LABS: OCCULT BLOOD STOOL POSITIVE (NEGATIVE)
[2017-10-01] MEDS: hydrALAzine 20 MG INJ IV ×3 (00:52→21:04)
[2017-10-01] MEDS: INSULIN ASPART [NOVOLOG] 3 ML PEN SC ×6 (00:58→21:00)
[2017-10-01] MEDS: HALOPERIDOL 5 MG INJ IM (02:13)
[2017-10-01] MEDS: PANTOPRAZOLE 40 MG INJ IV (05:52)
[2017-10-01] MEDS: DEXTROSE 50% 50 ML SYRINGE IV (06:00)
[2017-10-01 07:14] LABS: RETICULOCYTE COUNT # 0.118 X10^6 (0.020-0.110); RETICULOCYTE COUNT % 5.1 % (0.5-1.5)
[2017-10-01 07:14] LABS: RETICULOCYTE RBC 2.34
[2017-10-01 07:38] LABS: CREATINE KINASE 22 IU/L (23-200)
[2017-10-01 07:40] LABS: IRON 56 ug/dl (35-150)
[2017-10-01 07:49] LABS: TOTAL IRON BINDING CAPACITY 215 ug/dl (241-421)
[2017-10-01 07:51] LABS: CK INDEX 3.5; CK-MB 0.78 ng/ml (0.0-2.4)
[2017-10-01 07:52] LABS: % IRON SATURATION 26 % SAT (22-52)
[2017-10-01] MEDS: INSULIN DETEMIR [LEVEMIR] (100 UNITS/ML) SYG SC ×2 (08:00→21:29)
[2017-10-01] MEDS: SUCRALFATE 1 GM TAB PO ×4 (08:03→21:28)
[2017-10-01] MEDS: LACTULOSE 30ML CUP PO (08:07)
[2017-10-01] MEDS: RIFAXIMIN 550 MG TAB PO ×2 (08:07→21:28)
[2017-10-01] MEDS: predniSONE 10 MG TAB PO (08:07)
[2017-10-01] MEDS: NYSTATIN 30 GM POWDER BTL TOP ×2 (08:08→21:34)
[2017-10-01] MEDS: FLUTICASONE 0.05% 16 GM NAS SPRAY NASAL ×2 (08:16→21:34)
[2017-10-01] MEDS: NPH, HUMAN INSULIN ISOPHANE 3ML VIAL SC (09:00)
[2017-10-01] MEDS: ALBUTEROL/IPRATROPIUM (NEB) 3 ML AMP HHN ×4 (09:12→20:53)
[2017-10-01] MEDS: NYSTATIN/TRIAMCINOLONE 15 GM CR TOP (09:38)
[2017-10-01] MEDS: VITAMIN A & D 5 GM OINT PACKET TOP ×2 (09:38→21:34)
[2017-10-01] MEDS: SILVER SULFADIAZINE 1% 25 GM CR TOP (09:38)
[2017-10-01 10:29] LABS: FOLATE > 20.0 ng/ml (2.8-20.0)
[2017-10-01 10:35] LABS: IMMEDIATE SPIN CROSSMATCH 1 2
[2017-10-01 10:35] LABS: ADD MAN DIFF? NO
[2017-10-01 10:52] LABS: WHITE BLOOD COUNT 4.2 10^3/ul (4.8-10.8)
[2017-10-01 10:52] LABS: ABNORMAL IP MESSAGE 1; EOSINOPHILS % 0.2 % (0.0-7.0); HEMATOCRIT 23.1 % (37.0-47.0); HEMOGLOBIN 7.4 g/dl (12.0-16.0); LYMPHOCYTES # 0.5 10^3/ul (0.8-2.9); MEAN CORPUSCULAR HEMOGLOBIN 31.6 pg (29.0-33.0); MEAN CORPUSCULAR VOLUME 98.7 fl (82.0-101.0); MEAN PLATELET VOLUME 11.5 fl (7.4-10.4); MONOCYTE # 0.8 10^3/ul (0.3-0.9); NEUTROPHIL # 2.9 10^3/ul (1.6-7.5); NEUTROPHILS % 68.8 % (39.0-77.0); NUCLEATED RED BLOOD CELLS% 0.5 /100WBC (0.0-0.0); PLATELET COUNT 61 10^3/UL (140-415); RED BLOOD COUNT 2.34 10^6/ul (4.20-5.40); RED CELL DISTRIBUTION WIDTH 17.2 % (11.5-14.5)
[2017-10-01 10:55] LABS: POSITIVE DIFF @See below
[2017-10-01 11:16] LABS: PARTIAL THROMBOPLASTIN TIME 44.5 Sec (25.0-35.0)
[2017-10-01] MEDS: L ACIDOPHIL/B LACTIS/B LONGUM CAPSULE PO ×2 (11:49→21:28)
[2017-10-01 13:12] LABS: IMMUNOGLOBULIN A 217 mg/dl (70-400); IMMUNOGLOBULIN G 683 mg/dl (700-1600); IMMUNOGLOBULIN M 58 mg/dl (40-230)
[2017-10-01 14:25] LABS: 50/50 PTT 1 HOUR 40.4 Sec; 50/50 PTT IMMED 34.9 Sec
[2017-10-01] MEDS: MONTELUKAST 10 MG TAB PO (21:28)
[2017-10-01] MEDS: ACETAMINOPHEN 325 MG TAB PO (21:28)
[2017-10-01 21:35] LABS: Allen Test ACCEPTAB; Arterial Base Excess 10.4 mmol/L (-3.0-3); Arterial Blood Gas Oxygen Sat 94.9 mmHG (95.0-100.0); Arterial COHb 0.1 % (0.0-3.0); Arterial Fraction of Oxyhgb 94.4 % (93.0-99.0); Arterial HCO3 35.1 mmol/L (22.0-26.0); Arterial MetHb 0.4 % (0.0-1.5); Arterial Total Hemglobin 11.4 g/dl (12.0-18.0); Arterial pCO2 47.7 mmhg (35-45); MODE NASAL CANNULA; Site Right Radial
[2017-10-02] MEDS: INSULIN ASPART [NOVOLOG] 3 ML PEN SC ×6 (01:00→20:43)
[2017-10-02] MEDS: LORAZEPAM 2 MG INJ IV (03:51)
[2017-10-02] MEDS: PANTOPRAZOLE 40 MG INJ IV (05:18)
[2017-10-02 06:40] LABS: ALANINE AMINOTRANSFERASE 114 IU/L (13-69); ALBUMIN 2.5 g/dl (3.3-4.9); ALBUMIN/GLOBULIN RATIO 0.89; ALKALINE PHOSPHATASE 259 IU/L (42-121); ANION GAP 6 (8-16); ASPARTATE AMINO TRANSFERASE 85 IU/L (15-46); BILIRUBIN,INDIRECT 1.2 mg/dl (0-1.1); BILIRUBIN,TOTAL 1.2 mg/dl (0.2-1.3); BLOOD UREA NITROGEN 34 mg/dl (7-20); CALCIUM 9.2 mg/dl (8.4-10.2); CARBON DIOXIDE 36 mmol/L (21-31); CHLORIDE 104 mmol/L (97-110); CREATININE 0.84 mg/dl (0.44-1.00); GLUCOSE 102 mg/dl (70-220); POTASSIUM 3.7 mmol/L (3.5-5.1); SODIUM 142 mmol/L (135-144); TOTAL PROTEIN 5.3 g/dl (6.1-8.1)
[2017-10-02] MEDS: LACTULOSE 30ML CUP PO (08:33)
[2017-10-02] MEDS: predniSONE 10 MG TAB PO (08:33)
[2017-10-02] MEDS: RIFAXIMIN 550 MG TAB PO ×2 (08:33→20:37)
[2017-10-02] MEDS: SUCRALFATE 1 GM TAB PO ×4 (08:33→20:37)
[2017-10-02] MEDS: VITAMIN A & D 5 GM OINT PACKET TOP ×2 (08:34→20:38)
[2017-10-02] MEDS: NYSTATIN 30 GM POWDER BTL TOP ×2 (09:00→23:50)
[2017-10-02] MEDS: L ACIDOPHIL/B LACTIS/B LONGUM CAPSULE PO ×2 (09:04→20:37)
[2017-10-02] MEDS: SILVER SULFADIAZINE 1% 25 GM CR TOP (09:08)
[2017-10-02] MEDS: NYSTATIN/TRIAMCINOLONE 15 GM CR TOP (09:09)
[2017-10-02] MEDS: FLUTICASONE 0.05% 16 GM NAS SPRAY NASAL ×2 (09:10→20:37)
[2017-10-02] MEDS: NPH, HUMAN INSULIN ISOPHANE 3ML VIAL SC (09:46)
[2017-10-02 09:49] LABS: ADD MAN DIFF? NO
[2017-10-02 09:54] LABS: WHITE BLOOD COUNT 6.6 10^3/ul (4.8-10.8)
[2017-10-02 09:54] LABS: ABNORMAL IP MESSAGE 1; BASOPHILS % 0.2 % (0.0-2.0); EOSINOPHILS % 0.3 % (0.0-7.0); HEMATOCRIT 32.3 % (37.0-47.0); HEMOGLOBIN 10.5 g/dl (12.0-16.0); LYMPHOCYTES # 0.7 10^3/ul (0.8-2.9); LYMPHOCYTES % 10.1 % (15.0-51.0); MEAN CORPUSCULAR HEMOGLOBIN 30.2 pg (29.0-33.0); MEAN CORPUSCULAR HGB CONC 32.5 g/dl (32.0-37.0); MEAN CORPUSCULAR VOLUME 92.8 fl (82.0-101.0); MEAN PLATELET VOLUME 11.1 fl (7.4-10.4); MONOCYTE # 1.2 10^3/ul (0.3-0.9); MONOCYTES % 17.9 % (0.0-11.0); NEUTROPHIL # 4.7 10^3/ul (1.6-7.5); NEUTROPHILS % 70.3 % (39.0-77.0); NUCLEATED RED BLOOD CELLS% 0.3 /100WBC (0.0-0.0); PLATELET COUNT 74 10^3/UL (140-415); RED BLOOD COUNT 3.48 10^6/ul (4.20-5.40); RED CELL DISTRIBUTION WIDTH 18.3 % (11.5-14.5)
[2017-10-02 09:55] LABS: POSITIVE DIFF @See below
[2017-10-02] MEDS: ALBUTEROL/IPRATROPIUM (NEB) 3 ML AMP HHN ×4 (10:15→20:19)
[2017-10-02] MEDS: AMLODIPINE 5 MG TAB PO (12:30)
[2017-10-02] MEDS: INSULIN DETEMIR [LEVEMIR] (100 UNITS/ML) SYG SC ×2 (14:17→20:43)
[2017-10-02] MEDS: EPOETIN 10000 UNITS/ML (NON ESRD/NON ONCOLOGY) SC (18:53)
[2017-10-02] MEDS: MONTELUKAST 10 MG TAB PO (20:37)
[2017-10-03] MEDS: INSULIN ASPART [NOVOLOG] 3 ML PEN SC ×6 (01:00→21:56)
[2017-10-03] MEDS: LORAZEPAM 2 MG INJ IV (01:06)
[2017-10-03] MEDS: hydrALAzine 20 MG INJ IV (01:10)
[2017-10-03] MEDS: PANTOPRAZOLE 40 MG INJ IV (06:11)
[2017-10-03 06:40] LABS: ADD MAN DIFF? NO
[2017-10-03 06:43] LABS: ABNORMAL IP MESSAGE 1; EOSINOPHILS % 0.3 % (0.0-7.0); HEMATOCRIT 30.1 % (37.0-47.0); HEMOGLOBIN 9.7 g/dl (12.0-16.0); LYMPHOCYTES # 1.1 10^3/ul (0.8-2.9); LYMPHOCYTES % 14.5 % (15.0-51.0); MEAN CORPUSCULAR HEMOGLOBIN 30.1 pg (29.0-33.0); MEAN CORPUSCULAR HGB CONC 32.2 g/dl (32.0-37.0); MEAN CORPUSCULAR VOLUME 93.5 fl (82.0-101.0); MEAN PLATELET VOLUME 10.8 fl (7.4-10.4); MONOCYTE # 1.3 10^3/ul (0.3-0.9); MONOCYTES % 16.8 % (0.0-11.0); NEUTROPHILS % 67.1 % (39.0-77.0); NUCLEATED RED BLOOD CELLS% 0.5 /100WBC (0.0-0.0); PLATELET COUNT 68 10^3/UL (140-415); RED BLOOD COUNT 3.22 10^6/ul (4.20-5.40); RED CELL DISTRIBUTION WIDTH 17.5 % (11.5-14.5)
[2017-10-03 06:43] LABS: WHITE BLOOD COUNT 7.5 10^3/ul (4.8-10.8)
[2017-10-03 06:44] LABS: RETICULOCYTE RBC 3.23
[2017-10-03 06:44] LABS: RETICULOCYTE COUNT # 0.101 X10^6 (0.020-0.110); RETICULOCYTE COUNT % 3.1 % (0.5-1.5)
[2017-10-03 06:47] LABS: POSITIVE DIFF @See below
[2017-10-03 07:17] LABS: ALANINE AMINOTRANSFERASE 107 IU/L (13-69); ALBUMIN 2.3 g/dl (3.3-4.9); ALBUMIN/GLOBULIN RATIO 0.85; ALKALINE PHOSPHATASE 271 IU/L (42-121); ANION GAP 8 (8-16); ASPARTATE AMINO TRANSFERASE 84 IU/L (15-46); BLOOD UREA NITROGEN 29 mg/dl (7-20); CALCIUM 8.7 mg/dl (8.4-10.2); CARBON DIOXIDE 33 mmol/L (21-31); CHLORIDE 106 mmol/L (97-110); CREATININE 0.91 mg/dl (0.44-1.00); GLUCOSE 98 mg/dl (70-220); MAGNESIUM 1.8 mg/dl (1.7-2.5); PHOSPHORUS 1.9 mg/dl (2.5-4.9); POTASSIUM 3.7 mmol/L (3.5-5.1); SODIUM 143 mmol/L (135-144)
[2017-10-03] MEDS: NPH, HUMAN INSULIN ISOPHANE 3ML VIAL SC (08:15)
[2017-10-03] MEDS: INSULIN DETEMIR [LEVEMIR] (100 UNITS/ML) SYG SC ×2 (08:16→21:56)
[2017-10-03] MEDS: SUCRALFATE 1 GM TAB PO ×4 (08:23→21:43)
[2017-10-03] MEDS ORDERED: predniSONE 10 MG TAB PO (09:00)
[2017-10-03] MEDS: LACTULOSE 30ML CUP PO (09:24)
[2017-10-03] MEDS: predniSONE 1 MG TAB PO (09:25)
[2017-10-03] MEDS: RIFAXIMIN 550 MG TAB PO ×2 (09:25→21:43)
[2017-10-03] MEDS: AMLODIPINE 5 MG TAB PO (09:26)
[2017-10-03] MEDS: predniSONE 5 MG TAB PO (09:26)
[2017-10-03] MEDS: VITAMIN A & D 5 GM OINT PACKET TOP ×2 (09:27→21:43)
[2017-10-03] MEDS: NYSTATIN/TRIAMCINOLONE 15 GM CR TOP (09:27)
[2017-10-03] MEDS: NYSTATIN 30 GM POWDER BTL TOP ×2 (09:28→21:44)
[2017-10-03] MEDS: FLUTICASONE 0.05% 16 GM NAS SPRAY NASAL ×2 (09:29→21:43)
[2017-10-03] MEDS: SILVER SULFADIAZINE 1% 25 GM CR TOP (09:29)
[2017-10-03] MEDS: L ACIDOPHIL/B LACTIS/B LONGUM CAPSULE PO ×2 (09:35→21:43)
[2017-10-03] MEDS: ALBUTEROL/IPRATROPIUM (NEB) 3 ML AMP HHN ×4 (10:05→19:52)
[2017-10-03] MEDS: MAGNESIUM SULFATE 2 GM/50 ML 50 ML IVPB (15:45)
[2017-10-03] MEDS: POTASSIUM CHLORIDE (SR) 20 MEQ TAB PO (17:26)
[2017-10-03 20:29] LABS: ADD UMIC YES; UR ASCORBIC ACID NEGATIVE (NEGATIVE); UR BACTERIA MODERATE /HPF (NONE SEEN); UR BILIRUBIN (Dip) NEGATIVE (NEGATIVE); UR BLOOD (Dip) 2+ mg/dL (NEGATIVE); UR CLARITY CLOUDY (CLEAR); UR COLOR AMBER (YELLOW); UR GLUCOSE (Dip) NEGATIVE (NEGATIVE); UR KETONES (Dip) NEGATIVE (NEGATIVE); UR LEUKOCYTE ESTERASE (Dip) 2+ Leu/ul (NEGATIVE); UR MUCUS FEW /HPF (NONE SEEN); UR NITRITE (Dip) NEGATIVE (NEGATIVE); UR RBC 18 /HPF (0-5); UR SPECIFIC GRAVITY (Dip) 1.022 (1.003-1.030); UR TOTAL PROTEIN (Dip) 3+ mg/dl (NEGATIVE); UR UROBILINOGEN (Dip) NEGATIVE (NEGATIVE); UR WBC 144 /HPF (0-5)
[2017-10-03] MEDS: ZOLPIDEM 5 MG TAB PO (21:43)
[2017-10-03] MEDS: MONTELUKAST 10 MG TAB PO (21:43)
[2017-10-04] MEDS: INSULIN ASPART [NOVOLOG] 3 ML PEN SC ×6 (01:00→22:05)
[2017-10-04] MEDS: PANTOPRAZOLE 40 MG INJ IV (05:30)
[2017-10-04 07:34] LABS: ADD MAN DIFF? NO
[2017-10-04 07:41] LABS: ABNORMAL IP MESSAGE 1; BASOPHILS % 0.1 % (0.0-2.0); EOSINOPHILS % 0.4 % (0.0-7.0); HEMATOCRIT 28.7 % (37.0-47.0); HEMOGLOBIN 9.3 g/dl (12.0-16.0); LYMPHOCYTES % 13.7 % (15.0-51.0); MEAN CORPUSCULAR HEMOGLOBIN 30.4 pg (29.0-33.0); MEAN CORPUSCULAR HGB CONC 32.4 g/dl (32.0-37.0); MEAN CORPUSCULAR VOLUME 93.8 fl (82.0-101.0); MEAN PLATELET VOLUME 10.2 fl (7.4-10.4); MONOCYTE # 0.9 10^3/ul (0.3-0.9); MONOCYTES % 12.5 % (0.0-11.0); NEUTROPHIL # 5.3 10^3/ul (1.6-7.5); NEUTROPHILS % 71.8 % (39.0-77.0); NUCLEATED RED BLOOD CELLS% 0.3 /100WBC (0.0-0.0); PLATELET COUNT 65 10^3/UL (140-415); RED BLOOD COUNT 3.06 10^6/ul (4.20-5.40); RED CELL DISTRIBUTION WIDTH 16.7 % (11.5-14.5)
[2017-10-04 07:41] LABS: WHITE BLOOD COUNT 7.4 10^3/ul (4.8-10.8)
[2017-10-04 07:47] LABS: POSITIVE DIFF @See below
[2017-10-04] MEDS: VITAMIN A & D 5 GM OINT PACKET TOP ×2 (08:48→20:36)
[2017-10-04] MEDS: LACTULOSE 30ML CUP PO (08:48)
[2017-10-04] MEDS: SUCRALFATE 1 GM TAB PO ×4 (08:49→20:35)
[2017-10-04] MEDS: predniSONE 1 MG TAB PO (08:49)
[2017-10-04] MEDS: RIFAXIMIN 550 MG TAB PO ×2 (08:49→20:35)
[2017-10-04] MEDS: AMLODIPINE 5 MG TAB PO (08:49)
[2017-10-04] MEDS: predniSONE 5 MG TAB PO (08:50)
[2017-10-04] MEDS: L ACIDOPHIL/B LACTIS/B LONGUM CAPSULE PO ×2 (08:50→20:35)
[2017-10-04] MEDS: NYSTATIN 30 GM POWDER BTL TOP ×2 (08:50→20:36)
[2017-10-04] MEDS: FLUTICASONE 0.05% 16 GM NAS SPRAY NASAL ×2 (08:50→21:57)
[2017-10-04] MEDS: OCULAR LUBRICANT 3.5 GM OPH OINT OP (08:51)
[2017-10-04] MEDS: NYSTATIN/TRIAMCINOLONE 15 GM CR TOP (08:51)
[2017-10-04] MEDS: SILVER SULFADIAZINE 1% 25 GM CR TOP (08:51)
[2017-10-04] MEDS: INSULIN DETEMIR [LEVEMIR] (100 UNITS/ML) SYG SC ×2 (09:03→22:05)
[2017-10-04] MEDS: NPH, HUMAN INSULIN ISOPHANE 3ML VIAL SC (09:03)
[2017-10-04] MEDS: ALBUTEROL/IPRATROPIUM (NEB) 3 ML AMP HHN ×4 (09:17→21:24)
[2017-10-04 10:39] LABS: ALANINE AMINOTRANSFERASE 97 IU/L (13-69); ALBUMIN 2.3 g/dl (3.3-4.9); ALBUMIN/GLOBULIN RATIO 0.85; ALKALINE PHOSPHATASE 272 IU/L (42-121); ANION GAP 7 (8-16); ASPARTATE AMINO TRANSFERASE 69 IU/L (15-46); BLOOD UREA NITROGEN 25 mg/dl (7-20); CALCIUM 8.6 mg/dl (8.4-10.2); CARBON DIOXIDE 34 mmol/L (21-31); CHLORIDE 102 mmol/L (97-110); CREATININE 0.92 mg/dl (0.44-1.00); GLUCOSE 168 mg/dl (70-220); INR 1.08; LACTATE DEHYDROGENASE 1631 IU/L (313-618); POTASSIUM 3.6 mmol/L (3.5-5.1); PROTIME 14.1 Sec (11.9-14.9); PT RATIO 1.1; SODIUM 139 mmol/L (135-144)
[2017-10-04 10:41] LABS: PARTIAL THROMBOPLASTIN TIME 41.9 Sec (25.0-35.0)
[2017-10-04] MEDS: CEFTRIAXONE 1 GM/50 ML (PMX) 50 ML IVPB (10:48)
[2017-10-04] MEDS: ACETAMINOPHEN 325 MG TAB PO (10:55)
[2017-10-04] MEDS: POTASSIUM CHLORIDE (SR) 20 MEQ TAB PO (12:18)
[2017-10-04] MEDS: BARIUM SULF 2% 450 ML BTL (BERRY SMOOTHIE) PO (14:00)
[2017-10-04] MEDS: EPOETIN 10000 UNITS/ML (NON ESRD/NON ONCOLOGY) SC (17:30)
[2017-10-04] MEDS: MONTELUKAST 10 MG TAB PO (20:35)
[2017-10-05] MEDS: ZOLPIDEM 5 MG TAB PO ×2 (00:20→22:56)
[2017-10-05] MEDS: INSULIN ASPART [NOVOLOG] 3 ML PEN SC ×6 (01:00→21:28)
[2017-10-05] MEDS: PANTOPRAZOLE 40 MG INJ IV (05:51)
[2017-10-05] MEDS: SUCRALFATE 1 GM TAB PO ×4 (06:45→21:05)
[2017-10-05] MEDS: VITAMIN A & D 5 GM OINT PACKET TOP ×2 (08:47→21:28)
[2017-10-05] MEDS: LACTULOSE 30ML CUP PO (08:48)
[2017-10-05] MEDS: L ACIDOPHIL/B LACTIS/B LONGUM CAPSULE PO ×2 (08:49→21:00)
[2017-10-05] MEDS: RIFAXIMIN 550 MG TAB PO ×2 (08:49→21:00)
[2017-10-05] MEDS: AMLODIPINE 5 MG TAB PO (08:49)
[2017-10-05] MEDS: predniSONE 1 MG TAB PO (08:50)
[2017-10-05] MEDS: predniSONE 5 MG TAB PO (08:50)
[2017-10-05] MEDS: NPH, HUMAN INSULIN ISOPHANE 3ML VIAL SC (08:55)
[2017-10-05] MEDS: INSULIN DETEMIR [LEVEMIR] (100 UNITS/ML) SYG SC ×2 (08:55→21:27)
[2017-10-05] MEDS: FLUTICASONE 0.05% 16 GM NAS SPRAY NASAL ×2 (09:00→21:02)
[2017-10-05] MEDS: NYSTATIN/TRIAMCINOLONE 15 GM CR TOP (09:01)
[2017-10-05] MEDS: NYSTATIN 30 GM POWDER BTL TOP ×2 (09:01→21:28)
[2017-10-05] MEDS: SILVER SULFADIAZINE 1% 25 GM CR TOP (09:01)
[2017-10-05] MEDS: CEFTRIAXONE 1 GM/50 ML (PMX) 50 ML IVPB (10:10)
[2017-10-05] MEDS: ALBUTEROL/IPRATROPIUM (NEB) 3 ML AMP HHN ×4 (11:07→21:08)
[2017-10-05] MEDS: MEROPENEM 1 GM/50ML(PMX) 50 ML IVPB ×2 (12:12→21:02)
[2017-10-05] MEDS: ACETAMINOPHEN 325 MG TAB PO (16:48)
[2017-10-05] MEDS: BUMETANIDE 1 MG INJ IV ×2 (17:57→22:55)
[2017-10-05] MEDS: MONTELUKAST 10 MG TAB PO (21:00)
[2017-10-05] MEDS: LORAZEPAM 2 MG INJ IV (23:12)
[2017-10-06] MEDS: INSULIN ASPART [NOVOLOG] 3 ML PEN SC ×6 (00:33→20:46)
[2017-10-06] MEDS: BUMETANIDE 1 MG INJ IV ×2 (06:18→14:14)
[2017-10-06] MEDS: PANTOPRAZOLE 40 MG INJ IV (06:19)
[2017-10-06] MEDS: ACETAMINOPHEN 325 MG TAB PO (06:36)
[2017-10-06] MEDS: SUCRALFATE 1 GM TAB PO ×4 (06:36→20:39)
[2017-10-06] MEDS: LACTULOSE 30ML CUP PO (08:36)
[2017-10-06] MEDS: MEROPENEM 1 GM/50ML(PMX) 50 ML IVPB ×2 (08:37→20:38)
[2017-10-06] MEDS: predniSONE 5 MG TAB PO (08:37)
[2017-10-06] MEDS: RIFAXIMIN 550 MG TAB PO ×2 (08:38→20:39)
[2017-10-06] MEDS: predniSONE 1 MG TAB PO (08:38)
[2017-10-06] MEDS: NYSTATIN 30 GM POWDER BTL TOP ×2 (08:39→20:56)
[2017-10-06] MEDS: NYSTATIN/TRIAMCINOLONE 15 GM CR TOP (08:39)
[2017-10-06] MEDS: SILVER SULFADIAZINE 1% 25 GM CR TOP (08:40)
[2017-10-06] MEDS: FLUTICASONE 0.05% 16 GM NAS SPRAY NASAL ×2 (08:40→20:40)
[2017-10-06] MEDS: AMLODIPINE 5 MG TAB PO (08:42)
[2017-10-06] MEDS: NPH, HUMAN INSULIN ISOPHANE 3ML VIAL SC (08:46)
[2017-10-06] MEDS: INSULIN DETEMIR [LEVEMIR] (100 UNITS/ML) SYG SC ×2 (08:47→20:49)
[2017-10-06] MEDS: L ACIDOPHIL/B LACTIS/B LONGUM CAPSULE PO ×2 (08:48→20:39)
[2017-10-06] MEDS: VITAMIN A & D 5 GM OINT PACKET TOP ×2 (08:49→20:47)
[2017-10-06 09:03] LABS: ADD MAN DIFF? NO
[2017-10-06 09:10] LABS: WHITE BLOOD COUNT 7.8 10^3/ul (4.8-10.8)
[2017-10-06 09:10] LABS: ABNORMAL IP MESSAGE 1; BASOPHILS % 0.3 % (0.0-2.0); EOSINOPHILS % 0.4 % (0.0-7.0); HEMATOCRIT 29.2 % (37.0-47.0); HEMOGLOBIN 9.7 g/dl (12.0-16.0); LYMPHOCYTES # 0.8 10^3/ul (0.8-2.9); MEAN CORPUSCULAR HGB CONC 33.2 g/dl (32.0-37.0); MEAN CORPUSCULAR VOLUME 93.3 fl (82.0-101.0); MEAN PLATELET VOLUME 10.3 fl (7.4-10.4); MONOCYTE # 0.9 10^3/ul (0.3-0.9); MONOCYTES % 11.7 % (0.0-11.0); NEUTROPHIL # 5.7 10^3/ul (1.6-7.5); NEUTROPHILS % 72.6 % (39.0-77.0); NUCLEATED RED BLOOD CELLS # 0.1 10^3/ul (0.0-0.0); PLATELET COUNT 78 10^3/UL (140-415); RED BLOOD COUNT 3.13 10^6/ul (4.20-5.40); RED CELL DISTRIBUTION WIDTH 15.9 % (11.5-14.5)
[2017-10-06 09:17] LABS: POSITIVE DIFF @See below
[2017-10-06 09:35] LABS: ALANINE AMINOTRANSFERASE 95 IU/L (13-69); ALBUMIN 2.3 g/dl (3.3-4.9); ALBUMIN/GLOBULIN RATIO 0.88; ALKALINE PHOSPHATASE 272 IU/L (42-121); ANION GAP 6 (8-16); ASPARTATE AMINO TRANSFERASE 74 IU/L (15-46); BILIRUBIN,INDIRECT 0.7 mg/dl (0-1.1); BILIRUBIN,TOTAL 0.7 mg/dl (0.2-1.3); BLOOD UREA NITROGEN 23 mg/dl (7-20); CALCIUM 8.6 mg/dl (8.4-10.2); CARBON DIOXIDE 36 mmol/L (21-31); CHLORIDE 99 mmol/L (97-110); CREATININE 0.94 mg/dl (0.44-1.00); GLUCOSE 124 mg/dl (70-220); POTASSIUM 3.2 mmol/L (3.5-5.1); SODIUM 138 mmol/L (135-144); TOTAL PROTEIN 4.9 g/dl (6.1-8.1)
[2017-10-06] MEDS: ALBUTEROL/IPRATROPIUM (NEB) 3 ML AMP HHN ×4 (10:15→21:19)
[2017-10-06] MEDS: POTASSIUM CHLORIDE (SR) 20 MEQ TAB PO (11:17)
[2017-10-06] MEDS: POTASSIUM CHLORIDE 20 MEQ POWDER FOR ORAL SOLN PO (12:12)
[2017-10-06] MEDS: LINEZOLID 600 MG/D5W (PMX) 300 ML IVPB (19:30)
[2017-10-06] MEDS: LORAZEPAM 2 MG INJ IV (20:28)
[2017-10-06] MEDS: MONTELUKAST 10 MG TAB PO (20:39)
[2017-10-07] MEDS: hydrALAzine 20 MG INJ IV
[2017-10-07] MEDS: INSULIN ASPART [NOVOLOG] 3 ML PEN SC ×6 (01:00→20:31)
[2017-10-07] MEDS: ZOLPIDEM 5 MG TAB PO (02:27)
[2017-10-07] MEDS: PANTOPRAZOLE 40 MG INJ IV (06:00)
[2017-10-07] MEDS: RIFAXIMIN 550 MG TAB PO ×2 (08:05→20:15)
[2017-10-07] MEDS: VITAMIN A & D 5 GM OINT PACKET TOP ×2 (08:05→20:15)
[2017-10-07] MEDS: LACTULOSE 30ML CUP PO (08:05)
[2017-10-07] MEDS: L ACIDOPHIL/B LACTIS/B LONGUM CAPSULE PO ×2 (08:05→21:16)
[2017-10-07] MEDS: AMLODIPINE 5 MG TAB PO (08:05)
[2017-10-07] MEDS: LINEZOLID 600 MG/D5W (PMX) 300 ML IVPB (08:06)
[2017-10-07] MEDS: SUCRALFATE 1 GM TAB PO ×4 (08:06→20:15)
[2017-10-07] MEDS: MEROPENEM 1 GM/50ML(PMX) 50 ML IVPB ×2 (08:06→20:33)
[2017-10-07] MEDS: predniSONE 5 MG TAB PO (08:06)
[2017-10-07] MEDS: predniSONE 1 MG TAB PO (08:06)
[2017-10-07] MEDS: SILVER SULFADIAZINE 1% 25 GM CR TOP (08:07)
[2017-10-07] MEDS: NYSTATIN 30 GM POWDER BTL TOP ×2 (08:07→20:16)
[2017-10-07] MEDS: NYSTATIN/TRIAMCINOLONE 15 GM CR TOP (08:08)
[2017-10-07] MEDS: FLUTICASONE 0.05% 16 GM NAS SPRAY NASAL ×2 (08:08→20:16)
[2017-10-07] MEDS: INSULIN DETEMIR [LEVEMIR] (100 UNITS/ML) SYG SC ×2 (08:22→20:32)
[2017-10-07] MEDS: NPH, HUMAN INSULIN ISOPHANE 3ML VIAL SC (08:22)
[2017-10-07] MEDS: ALBUTEROL/IPRATROPIUM (NEB) 3 ML AMP HHN ×4 (09:28→21:37)
[2017-10-07 15:17] LABS: ALANINE AMINOTRANSFERASE 100 IU/L (13-69); ALBUMIN 2.4 g/dl (3.3-4.9); ALBUMIN/GLOBULIN RATIO 0.85; ALKALINE PHOSPHATASE 315 IU/L (42-121); ANION GAP 6 (8-16); ASPARTATE AMINO TRANSFERASE 93 IU/L (15-46); BILIRUBIN,INDIRECT 0.7 mg/dl (0-1.1); BILIRUBIN,TOTAL 0.7 mg/dl (0.2-1.3); BLOOD UREA NITROGEN 20 mg/dl (7-20); CALCIUM 8.6 mg/dl (8.4-10.2); CARBON DIOXIDE 38 mmol/L (21-31); CHLORIDE 94 mmol/L (97-110); CREATININE 0.95 mg/dl (0.44-1.00); GLUCOSE 224 mg/dl (70-220); POTASSIUM 3.9 mmol/L (3.5-5.1); SODIUM 134 mmol/L (135-144); TOTAL PROTEIN 5.2 g/dl (6.1-8.1)
[2017-10-07] MEDS: EPOETIN 10000 UNITS/ML (NON ESRD/NON ONCOLOGY) SC (17:12)
[2017-10-07 19:37] LABS: MAGNESIUM 1.2 mg/dl (1.7-2.5)
[2017-10-07 19:38] LABS: CREATINE KINASE < 20 IU/L (23-200)
[2017-10-07 19:50] LABS: CK-MB 0.54 ng/ml (0.0-2.4)
[2017-10-07] MEDS: MONTELUKAST 10 MG TAB PO (20:15)
[2017-10-07] MEDS: LORAZEPAM 2 MG INJ IV (20:19)
[2017-10-07] MEDS: ZYVOX 600 MG TAB PO (21:16)
[2017-10-08] MEDS: INSULIN ASPART [NOVOLOG] 3 ML PEN SC ×6 (01:00→20:37)
[2017-10-08 01:13] LABS: CK-MB 0.67 ng/ml (0.0-2.4); TROPONIN-I 0.053 ng/ml (0.000-0.120)
[2017-10-08 01:21] LABS: CREATINE KINASE < 20 IU/L (23-200)
[2017-10-08] MEDS: MAGNESIUM SULFATE 4 GM/100 ML 100 ML IVPB (03:20)
[2017-10-08] MEDS: LORAZEPAM 2 MG INJ IV ×2 (04:09→21:56)
[2017-10-08] MEDS: PANTOPRAZOLE 40 MG INJ IV (05:57)
[2017-10-08] MEDS: L ACIDOPHIL/B LACTIS/B LONGUM CAPSULE PO ×2 (07:55→20:29)
[2017-10-08] MEDS: AMLODIPINE 5 MG TAB PO (07:55)
[2017-10-08] MEDS: ZYVOX 600 MG TAB PO ×2 (07:55→20:30)
[2017-10-08] MEDS: MEROPENEM 1 GM/50ML(PMX) 50 ML IVPB ×2 (07:55→21:54)
[2017-10-08] MEDS: LACTULOSE 30ML CUP PO (07:55)
[2017-10-08] MEDS: SUCRALFATE 1 GM TAB PO ×4 (07:55→20:30)
[2017-10-08] MEDS: predniSONE 1 MG TAB PO (07:55)
[2017-10-08] MEDS: predniSONE 5 MG TAB PO (07:56)
[2017-10-08] MEDS: NYSTATIN 30 GM POWDER BTL TOP ×2 (07:56→20:31)
[2017-10-08] MEDS: FLUTICASONE 0.05% 16 GM NAS SPRAY NASAL ×2 (07:56→20:32)
[2017-10-08] MEDS: VITAMIN A & D 5 GM OINT PACKET TOP ×2 (07:56→20:31)
[2017-10-08] MEDS: RIFAXIMIN 550 MG TAB PO ×2 (07:56→20:30)
[2017-10-08] MEDS: SILVER SULFADIAZINE 1% 25 GM CR TOP (07:57)
[2017-10-08] MEDS: NYSTATIN/TRIAMCINOLONE 15 GM CR TOP (07:57)
[2017-10-08] MEDS: NPH, HUMAN INSULIN ISOPHANE 3ML VIAL SC (08:26)
[2017-10-08] MEDS: INSULIN DETEMIR [LEVEMIR] (100 UNITS/ML) SYG SC ×2 (08:26→20:37)
[2017-10-08 08:43] LABS: ADD MAN DIFF? NO
[2017-10-08 08:51] LABS: WHITE BLOOD COUNT 6.8 10^3/ul (4.8-10.8)
[2017-10-08 08:51] LABS: ABNORMAL IP MESSAGE 1; BASOPHILS % 0.3 % (0.0-2.0); EOSINOPHILS % 0.4 % (0.0-7.0); HEMATOCRIT 27.5 % (37.0-47.0); HEMOGLOBIN 8.9 g/dl (12.0-16.0); LYMPHOCYTES # 0.9 10^3/ul (0.8-2.9); LYMPHOCYTES % 13.4 % (15.0-51.0); MEAN CORPUSCULAR HEMOGLOBIN 30.5 pg (29.0-33.0); MEAN CORPUSCULAR HGB CONC 32.4 g/dl (32.0-37.0); MEAN CORPUSCULAR VOLUME 94.2 fl (82.0-101.0); MEAN PLATELET VOLUME 10.6 fl (7.4-10.4); MONOCYTES % 14.3 % (0.0-11.0); NEUTROPHIL # 4.7 10^3/ul (1.6-7.5); NEUTROPHILS % 69.1 % (39.0-77.0); NUCLEATED RED BLOOD CELLS% 0.6 /100WBC (0.0-0.0); POSITIVE DIFF @See below; RED BLOOD COUNT 2.92 10^6/ul (4.20-5.40); RED CELL DISTRIBUTION WIDTH 16.2 % (11.5-14.5)
[2017-10-08 08:52] LABS: PLATELET COUNT 74 10^3/UL (140-415)
[2017-10-08 10:03] LABS: ALANINE AMINOTRANSFERASE 82 IU/L (13-69); ALBUMIN/GLOBULIN RATIO 0.83; ALKALINE PHOSPHATASE 247 IU/L (42-121); ANION GAP 6 (8-16); ASPARTATE AMINO TRANSFERASE 65 IU/L (15-46); BILIRUBIN,INDIRECT 0.5 mg/dl (0-1.1); BILIRUBIN,TOTAL 0.5 mg/dl (0.2-1.3); BLOOD UREA NITROGEN 17 mg/dl (7-20); CARBON DIOXIDE 33 mmol/L (21-31); CHLORIDE 100 mmol/L (97-110); CREATININE 0.84 mg/dl (0.44-1.00); GLUCOSE 81 mg/dl (70-220); SODIUM 136 mmol/L (135-144); TOTAL PROTEIN 4.4 g/dl (6.1-8.1)
[2017-10-08 10:05] LABS: MAGNESIUM 2.2 mg/dl (1.7-2.5)
[2017-10-08] MEDS: ALBUTEROL/IPRATROPIUM (NEB) 3 ML AMP HHN ×4 (10:16→21:00)
[2017-10-08 12:20] LABS: INR 1.04; PROTIME 13.7 Sec (11.9-14.9); PT RATIO 1.1
[2017-10-08 14:52] LABS: AADO2 Arterial 74.3 mmHg (7.0-24.0); Allen Test ACCEPTAB; Arterial Base Excess 10.4 mmol/L (-3.0-3); Arterial Blood Gas Oxygen Sat 95.8 mmHG (95.0-100.0); Arterial COHb 0.3 % (0.0-3.0); Arterial HCO3 35.7 mmol/L (22.0-26.0); Arterial MetHb 0.5 % (0.0-1.5); Arterial Total Hemglobin 10.9 g/dl (12.0-18.0); Arterial pCO2 51.6 mmhg (35-45); MODE NASAL CANNULA; Site Left Radial
[2017-10-08] MEDS: POTASSIUM CHLORIDE 50 ML IVPB ×2 (16:58→18:01)
[2017-10-08] MEDS: POTASSIUM CHLORIDE (SR) 20 MEQ TAB PO (17:12)
[2017-10-08] MEDS: MONTELUKAST 10 MG TAB PO (20:30)
[2017-10-09] MEDS: INSULIN ASPART [NOVOLOG] 3 ML PEN SC ×6 (01:00→22:08)
[2017-10-09] MEDS: PANTOPRAZOLE 40 MG INJ IV (05:21)
[2017-10-09 07:29] LABS: ADD MAN DIFF? NO
[2017-10-09 07:37] LABS: WHITE BLOOD COUNT 6.8 10^3/ul (4.8-10.8)
[2017-10-09 07:37] LABS: ABNORMAL IP MESSAGE 1; BASOPHILS % 0.4 % (0.0-2.0); EOSINOPHILS % 0.6 % (0.0-7.0); HEMATOCRIT 30.2 % (37.0-47.0); HEMOGLOBIN 9.7 g/dl (12.0-16.0); LYMPHOCYTES # 0.9 10^3/ul (0.8-2.9); LYMPHOCYTES % 13.8 % (15.0-51.0); MEAN CORPUSCULAR HEMOGLOBIN 30.4 pg (29.0-33.0); MEAN CORPUSCULAR HGB CONC 32.1 g/dl (32.0-37.0); MEAN CORPUSCULAR VOLUME 94.7 fl (82.0-101.0); MEAN PLATELET VOLUME 10.1 fl (7.4-10.4); MONOCYTE # 1.2 10^3/ul (0.3-0.9); MONOCYTES % 17.2 % (0.0-11.0); NEUTROPHIL # 4.5 10^3/ul (1.6-7.5); NEUTROPHILS % 66.2 % (39.0-77.0); NUCLEATED RED BLOOD CELLS # 0.1 10^3/ul (0.0-0.0); NUCLEATED RED BLOOD CELLS% 0.7 /100WBC (0.0-0.0); PLATELET COUNT 98 10^3/UL (140-415); RED BLOOD COUNT 3.19 10^6/ul (4.20-5.40); RED CELL DISTRIBUTION WIDTH 16.3 % (11.5-14.5)
[2017-10-09 07:45] LABS: POSITIVE DIFF @See below
[2017-10-09 07:52] LABS: AMMONIA 15 umol/l (9-30); LACTIC ACID 1.9 mmol/L (0.5-2.0)
[2017-10-09] MEDS: INSULIN DETEMIR [LEVEMIR] (100 UNITS/ML) SYG SC ×2 (08:00→22:07)
[2017-10-09 08:01] LABS: MAGNESIUM 1.9 mg/dl (1.7-2.5)
[2017-10-09 08:02] LABS: ANION GAP 6 (8-16); BLOOD UREA NITROGEN 18 mg/dl (7-20); CALCIUM 8.6 mg/dl (8.4-10.2); CARBON DIOXIDE 36 mmol/L (21-31); CHLORIDE 102 mmol/L (97-110); CREATININE 0.84 mg/dl (0.44-1.00); GLUCOSE 71 mg/dl (70-220); SODIUM 136 mmol/L (135-144)
[2017-10-09 08:06] LABS: POTASSIUM 7.5 mmol/L (3.5-5.1)
[2017-10-09] MEDS: MEROPENEM 1 GM/50ML(PMX) 50 ML IVPB ×2 (09:00→21:51)
[2017-10-09] MEDS: ALBUTEROL/IPRATROPIUM (NEB) 3 ML AMP HHN ×4 (09:00→21:00)
[2017-10-09] MEDS: ZYVOX 600 MG TAB PO ×2 (09:47→21:50)
[2017-10-09] MEDS: LACTULOSE 30ML CUP PO (09:47)
[2017-10-09] MEDS: VITAMIN A & D 5 GM OINT PACKET TOP ×2 (09:47→21:50)
[2017-10-09] MEDS: L ACIDOPHIL/B LACTIS/B LONGUM CAPSULE PO ×2 (09:47→21:50)
[2017-10-09] MEDS: RIFAXIMIN 550 MG TAB PO ×2 (09:47→21:50)
[2017-10-09] MEDS: AMLODIPINE 5 MG TAB PO (09:48)
[2017-10-09] MEDS: SUCRALFATE 1 GM TAB PO ×4 (09:48→21:50)
[2017-10-09] MEDS: predniSONE 5 MG TAB PO (09:48)
[2017-10-09] MEDS: FLUTICASONE 0.05% 16 GM NAS SPRAY NASAL ×2 (09:49→21:51)
[2017-10-09] MEDS: NYSTATIN 30 GM POWDER BTL TOP ×2 (09:51→21:51)
[2017-10-09] MEDS: SILVER SULFADIAZINE 1% 25 GM CR TOP (09:51)
[2017-10-09] MEDS: NYSTATIN/TRIAMCINOLONE 15 GM CR TOP (09:52)
[2017-10-09] MEDS: NPH, HUMAN INSULIN ISOPHANE 3ML VIAL SC (09:59)
[2017-10-09 10:59] LABS: POTASSIUM 4.5 mmol/L (3.5-5.1)
[2017-10-09] MEDS: MAGNESIUM SULFATE 2 GM/50 ML 50 ML IVPB (15:48)
[2017-10-09] MEDS: EPOETIN 10000 UNITS/ML (NON ESRD/NON ONCOLOGY) SC (16:08)
[2017-10-09] MEDS: MONTELUKAST 10 MG TAB PO (21:50)
[2017-10-10] MEDS: INSULIN ASPART [NOVOLOG] 3 ML PEN SC ×6 (01:00→22:17)
[2017-10-10] MEDS: LORAZEPAM 2 MG INJ IV (03:59)
[2017-10-10] MEDS: PANTOPRAZOLE 40 MG INJ IV (06:35)
[2017-10-10 07:26] LABS: ADD MAN DIFF? NO
[2017-10-10 07:29] LABS: WHITE BLOOD COUNT 7.2 10^3/ul (4.8-10.8)
[2017-10-10 07:29] LABS: BASOPHILS % 0.3 % (0.0-2.0); EOSINOPHILS # 0.1 10^3/ul (0.0-0.5); EOSINOPHILS % 0.7 % (0.0-7.0); HEMATOCRIT 25.7 % (37.0-47.0); HEMOGLOBIN 8.3 g/dl (12.0-16.0); LYMPHOCYTES # 1.3 10^3/ul (0.8-2.9); LYMPHOCYTES % 17.5 % (15.0-51.0); MEAN CORPUSCULAR HEMOGLOBIN 30.6 pg (29.0-33.0); MEAN CORPUSCULAR HGB CONC 32.3 g/dl (32.0-37.0); MEAN CORPUSCULAR VOLUME 94.8 fl (82.0-101.0); MEAN PLATELET VOLUME 9.8 fl (7.4-10.4); MONOCYTE # 1.1 10^3/ul (0.3-0.9); MONOCYTES % 15.4 % (0.0-11.0); NEUTROPHIL # 4.7 10^3/ul (1.6-7.5); NEUTROPHILS % 64.8 % (39.0-77.0); NUCLEATED RED BLOOD CELLS% 0.6 /100WBC (0.0-0.0); PLATELET COUNT 127 10^3/UL (140-415); RED BLOOD COUNT 2.71 10^6/ul (4.20-5.40); RED CELL DISTRIBUTION WIDTH 16.4 % (11.5-14.5)
[2017-10-10 07:54] LABS: ALANINE AMINOTRANSFERASE 77 IU/L (13-69); ALBUMIN 2.2 g/dl (3.3-4.9); ALBUMIN/GLOBULIN RATIO 0.81; ALKALINE PHOSPHATASE 299 IU/L (42-121); ANION GAP 8 (8-16); ASPARTATE AMINO TRANSFERASE 80 IU/L (15-46); BILIRUBIN,INDIRECT 0.5 mg/dl (0-1.1); BILIRUBIN,TOTAL 0.5 mg/dl (0.2-1.3); BLOOD UREA NITROGEN 20 mg/dl (7-20); CALCIUM 8.5 mg/dl (8.4-10.2); CARBON DIOXIDE 33 mmol/L (21-31); CHLORIDE 100 mmol/L (97-110); CREATININE 0.93 mg/dl (0.44-1.00); GLUCOSE 116 mg/dl (70-220); MAGNESIUM 2.4 mg/dl (1.7-2.5); SODIUM 137 mmol/L (135-144); TOTAL PROTEIN 4.9 g/dl (6.1-8.1)
[2017-10-10] MEDS: ALBUTEROL/IPRATROPIUM (NEB) 3 ML AMP HHN ×4 (09:10→21:00)
[2017-10-10] MEDS: RIFAXIMIN 550 MG TAB PO ×2 (09:17→22:06)
[2017-10-10] MEDS: SUCRALFATE 1 GM TAB PO ×4 (09:17→22:06)
[2017-10-10] MEDS: LACTULOSE 30ML CUP PO (09:17)
[2017-10-10] MEDS: predniSONE 5 MG TAB PO (09:17)
[2017-10-10] MEDS: L ACIDOPHIL/B LACTIS/B LONGUM CAPSULE PO ×2 (09:17→22:06)
[2017-10-10] MEDS: AMLODIPINE 5 MG TAB PO (09:18)
[2017-10-10] MEDS: INSULIN DETEMIR [LEVEMIR] (100 UNITS/ML) SYG SC ×2 (09:29→22:17)
[2017-10-10] MEDS: SILVER SULFADIAZINE 1% 25 GM CR TOP (09:30)
[2017-10-10] MEDS: NPH, HUMAN INSULIN ISOPHANE 3ML VIAL SC (09:30)
[2017-10-10] MEDS: NYSTATIN/TRIAMCINOLONE 15 GM CR TOP (09:30)
[2017-10-10] MEDS: VITAMIN A & D 5 GM OINT PACKET TOP ×2 (09:30→22:06)
[2017-10-10] MEDS: NYSTATIN 30 GM POWDER BTL TOP ×2 (09:30→22:06)
[2017-10-10] MEDS: FLUTICASONE 0.05% 16 GM NAS SPRAY NASAL ×2 (09:31→22:07)
[2017-10-10] MEDS: BUMETANIDE 1 MG INJ IV ×2 (10:56→17:11)
[2017-10-10] MEDS: MONTELUKAST 10 MG TAB PO (22:06)
[2017-10-10] MEDS: POTASSIUM CHLORIDE (SR) 10 MEQ TAB PO (22:06)
[2017-10-11] MEDS: INSULIN ASPART [NOVOLOG] 3 ML PEN SC ×6 (00:44→21:26)
[2017-10-11] MEDS: LORAZEPAM 2 MG INJ IV (01:31)
[2017-10-11] MEDS: PANTOPRAZOLE 40 MG INJ IV (05:35)
[2017-10-11] MEDS: BUMETANIDE 1 MG INJ IV ×2 (05:35→17:26)
[2017-10-11] MEDS: ALBUTEROL/IPRATROPIUM (NEB) 3 ML AMP HHN ×4 (09:00→20:42)
[2017-10-11] MEDS: VITAMIN A & D 5 GM OINT PACKET TOP ×2 (09:01→22:52)
[2017-10-11] MEDS: NYSTATIN/TRIAMCINOLONE 15 GM CR TOP (09:01)
[2017-10-11] MEDS: SILVER SULFADIAZINE 1% 25 GM CR TOP (09:01)
[2017-10-11] MEDS: LACTULOSE 30ML CUP PO (09:01)
[2017-10-11] MEDS: NYSTATIN 30 GM POWDER BTL TOP ×2 (09:02→22:55)
[2017-10-11] MEDS: L ACIDOPHIL/B LACTIS/B LONGUM CAPSULE PO ×3 (09:02→22:52)
[2017-10-11] MEDS: RIFAXIMIN 550 MG TAB PO ×3 (09:02→22:54)
[2017-10-11] MEDS: FLUTICASONE 0.05% 16 GM NAS SPRAY NASAL ×2 (09:02→22:59)
[2017-10-11] MEDS: AMLODIPINE 5 MG TAB PO (09:03)
[2017-10-11] MEDS: SUCRALFATE 1 GM TAB PO ×5 (09:03→22:54)
[2017-10-11] MEDS: POTASSIUM CHLORIDE (SR) 10 MEQ TAB PO ×3 (09:03→22:58)
[2017-10-11] MEDS: predniSONE 5 MG TAB PO (09:03)
[2017-10-11] MEDS: INSULIN DETEMIR [LEVEMIR] (100 UNITS/ML) SYG SC ×2 (09:04→21:26)
[2017-10-11] MEDS: NPH, HUMAN INSULIN ISOPHANE 3ML VIAL SC (09:04)
[2017-10-11 10:59] LABS: ADD MAN DIFF? NO
[2017-10-11 11:02] LABS: WHITE BLOOD COUNT 6.3 10^3/ul (4.8-10.8)
[2017-10-11 11:02] LABS: BASOPHILS % 0.2 % (0.0-2.0); EOSINOPHILS # 0.1 10^3/ul (0.0-0.5); EOSINOPHILS % 1.1 % (0.0-7.0); HEMATOCRIT 28.6 % (37.0-47.0); HEMOGLOBIN 9.4 g/dl (12.0-16.0); LYMPHOCYTES # 1.3 10^3/ul (0.8-2.9); LYMPHOCYTES % 21.2 % (15.0-51.0); MEAN CORPUSCULAR HEMOGLOBIN 31.3 pg (29.0-33.0); MEAN CORPUSCULAR HGB CONC 32.9 g/dl (32.0-37.0); MEAN CORPUSCULAR VOLUME 95.3 fl (82.0-101.0); MEAN PLATELET VOLUME 9.5 fl (7.4-10.4); MONOCYTES % 16.4 % (0.0-11.0); NEUTROPHIL # 3.8 10^3/ul (1.6-7.5); NEUTROPHILS % 60.1 % (39.0-77.0); PLATELET COUNT 124 10^3/UL (140-415); RED CELL DISTRIBUTION WIDTH 16.5 % (11.5-14.5)
[2017-10-11 11:22] LABS: AMMONIA < 9 umol/l (9-30)
[2017-10-11 11:31] LABS: ALANINE AMINOTRANSFERASE 85 IU/L (13-69); ALBUMIN/GLOBULIN RATIO 0.83; ALKALINE PHOSPHATASE 288 IU/L (42-121); ANION GAP 6 (8-16); ASPARTATE AMINO TRANSFERASE 87 IU/L (15-46); BILIRUBIN,INDIRECT 0.6 mg/dl (0-1.1); BILIRUBIN,TOTAL 0.6 mg/dl (0.2-1.3); BLOOD UREA NITROGEN 21 mg/dl (7-20); CALCIUM 8.6 mg/dl (8.4-10.2); CARBON DIOXIDE 35 mmol/L (21-31); CHLORIDE 98 mmol/L (97-110); CREATININE 1.05 mg/dl (0.44-1.00); GLUCOSE 143 mg/dl (70-220); MAGNESIUM 1.6 mg/dl (1.7-2.5); POTASSIUM 3.8 mmol/L (3.5-5.1); SODIUM 135 mmol/L (135-144); TOTAL PROTEIN 4.4 g/dl (6.1-8.1)
[2017-10-11] MEDS: EPOETIN 10000 UNITS/ML (NON ESRD/NON ONCOLOGY) SC (17:27)
[2017-10-11] MEDS: MAGNESIUM SULFATE 3 GM in DEXTROSE 5% 100 ML IVPB (18:05)
[2017-10-11] MEDS: MONTELUKAST 10 MG TAB PO ×2 (21:00→22:58)
[2017-10-11] MEDS: MIRTAZAPINE 15 MG TAB PO ×2 (21:00→22:53)
[2017-10-11] MEDS: ZOLPIDEM 5 MG TAB PO (23:05)
[2017-10-12] MEDS: LORAZEPAM 2 MG INJ IV (00:37)
[2017-10-12] MEDS: INSULIN ASPART [NOVOLOG] 3 ML PEN SC ×6 (01:00→22:06)
[2017-10-12] MEDS: HALOPERIDOL 5 MG INJ IV (02:13)
[2017-10-12] MEDS: BUMETANIDE 1 MG INJ IV ×2 (05:20→17:10)
[2017-10-12] MEDS: PANTOPRAZOLE 40 MG INJ IV (05:23)
[2017-10-12 07:19] LABS: ADD MAN DIFF? NO
[2017-10-12 07:21] LABS: BASOPHILS % 0.3 % (0.0-2.0); EOSINOPHILS # 0.1 10^3/ul (0.0-0.5); EOSINOPHILS % 1.1 % (0.0-7.0); HEMATOCRIT 28.3 % (37.0-47.0); HEMOGLOBIN 9.4 g/dl (12.0-16.0); IMMATURE GRANS #M 0.04 10^3/ul; IMMATURE GRANS % (M) 0.7 %; LYMPHOCYTES # 1.4 10^3/ul (0.8-2.9); LYMPHOCYTES % 22.8 % (15.0-51.0); MEAN CORPUSCULAR HEMOGLOBIN 31.3 pg (29.0-33.0); MEAN CORPUSCULAR HGB CONC 33.2 g/dl (32.0-37.0); MEAN CORPUSCULAR VOLUME 94.3 fl (82.0-101.0); MEAN PLATELET VOLUME 9.2 fl (7.4-10.4); MONOCYTE # 1.2 10^3/ul (0.3-0.9); MONOCYTES % 19.3 % (0.0-11.0); NEUTROPHIL # 3.4 10^3/ul (1.6-7.5); NEUTROPHILS % 55.8 % (39.0-77.0); PLATELET COUNT 141 10^3/UL (140-415); RED CELL DISTRIBUTION WIDTH 16.2 % (11.5-14.5)
[2017-10-12 07:21] LABS: WHITE BLOOD COUNT 6.2 10^3/ul (4.8-10.8)
[2017-10-12] MEDS: SUCRALFATE 1 GM TAB PO ×4 (07:25→21:46)
[2017-10-12 07:48] LABS: ALANINE AMINOTRANSFERASE 80 IU/L (13-69); ALBUMIN 2.3 g/dl (3.3-4.9); ALBUMIN/GLOBULIN RATIO 0.88; ALKALINE PHOSPHATASE 282 IU/L (42-121); ANION GAP 7 (8-16); ASPARTATE AMINO TRANSFERASE 82 IU/L (15-46); BILIRUBIN,INDIRECT 0.6 mg/dl (0-1.1); BILIRUBIN,TOTAL 0.6 mg/dl (0.2-1.3); BLOOD UREA NITROGEN 25 mg/dl (7-20); CALCIUM 8.8 mg/dl (8.4-10.2); CARBON DIOXIDE 35 mmol/L (21-31); CHLORIDE 99 mmol/L (97-110); CREATININE 1.01 mg/dl (0.44-1.00); GLUCOSE 103 mg/dl (70-220); MAGNESIUM 2.2 mg/dl (1.7-2.5); POTASSIUM 3.5 mmol/L (3.5-5.1); SODIUM 137 mmol/L (135-144); TOTAL PROTEIN 4.9 g/dl (6.1-8.1)
[2017-10-12 07:50] LABS: PHOSPHORUS 2.3 mg/dl (2.5-4.9)
[2017-10-12] MEDS: INSULIN DETEMIR [LEVEMIR] (100 UNITS/ML) SYG SC ×2 (08:00→22:06)
[2017-10-12] MEDS: ALBUTEROL/IPRATROPIUM (NEB) 3 ML AMP HHN ×4 (08:48→20:24)
[2017-10-12] MEDS: AMLODIPINE 5 MG TAB PO ×2 (09:00→10:52)
[2017-10-12] MEDS: POTASSIUM CHLORIDE (SR) 10 MEQ TAB PO ×3 (09:00→21:46)
[2017-10-12] MEDS: RIFAXIMIN 550 MG TAB PO ×3 (09:00→21:46)
[2017-10-12] MEDS: LACTULOSE 30ML CUP PO ×2 (09:00→10:50)
[2017-10-12] MEDS: predniSONE 5 MG TAB PO ×2 (09:00→10:50)
[2017-10-12] MEDS: L ACIDOPHIL/B LACTIS/B LONGUM CAPSULE PO ×3 (09:00→21:45)
[2017-10-12] MEDS: FLUTICASONE 0.05% 16 GM NAS SPRAY NASAL ×2 (09:00→21:49)
[2017-10-12] MEDS: SILVER SULFADIAZINE 1% 25 GM CR TOP (10:34)
[2017-10-12] MEDS: NYSTATIN 30 GM POWDER BTL TOP ×2 (10:34→21:50)
[2017-10-12] MEDS: NYSTATIN/TRIAMCINOLONE 15 GM CR TOP (10:34)
[2017-10-12] MEDS: VITAMIN A & D 5 GM OINT PACKET TOP ×2 (10:34→21:49)
[2017-10-12] MEDS: NPH, HUMAN INSULIN ISOPHANE 3ML VIAL SC (10:38)
[2017-10-12] MEDS: POTASSIUM PHOSPHATE 20 MEQ in SOD CHLORIDE 0.9% 250 ML IVPB (12:29)
[2017-10-12] MEDS: MONTELUKAST 10 MG TAB PO (21:46)
[2017-10-12] MEDS: MIRTAZAPINE 15 MG TAB PO (21:47)
[2017-10-13] MEDS: INSULIN ASPART [NOVOLOG] 3 ML PEN SC ×6 (01:20→21:03)
[2017-10-13] MEDS: LORAZEPAM 2 MG INJ IV ×2 (01:23→20:50)
[2017-10-13] MEDS: PANTOPRAZOLE 40 MG INJ IV (06:24)
[2017-10-13] MEDS: BUMETANIDE 1 MG INJ IV ×2 (06:24→17:24)
[2017-10-13 07:11] LABS: ADD MAN DIFF? NO
[2017-10-13 07:14] LABS: BASOPHILS % 0.5 % (0.0-2.0); EOSINOPHILS # 0.1 10^3/ul (0.0-0.5); EOSINOPHILS % 1.2 % (0.0-7.0); HEMATOCRIT 28.4 % (37.0-47.0); HEMOGLOBIN 9.3 g/dl (12.0-16.0); IMMATURE GRANS #M 0.05 10^3/ul; IMMATURE GRANS % (M) 0.8 %; LYMPHOCYTES # 1.5 10^3/ul (0.8-2.9); LYMPHOCYTES % 24.4 % (15.0-51.0); MEAN CORPUSCULAR HEMOGLOBIN 30.2 pg (29.0-33.0); MEAN CORPUSCULAR HGB CONC 32.7 g/dl (32.0-37.0); MEAN CORPUSCULAR VOLUME 92.2 fl (82.0-101.0); MEAN PLATELET VOLUME 9.4 fl (7.4-10.4); MONOCYTE # 1.3 10^3/ul (0.3-0.9); MONOCYTES % 22.3 % (0.0-11.0); NEUTROPHIL # 3.1 10^3/ul (1.6-7.5); NEUTROPHILS % 50.8 % (39.0-77.0); PLATELET COUNT 145 10^3/UL (140-415); RED BLOOD COUNT 3.08 10^6/ul (4.20-5.40); RED CELL DISTRIBUTION WIDTH 16.2 % (11.5-14.5)
[2017-10-13] MEDS ORDERED: HALOPERIDOL 5 MG INJ IV (07:30)
[2017-10-13 07:31] LABS: AMMONIA < 9 umol/l (9-30)
[2017-10-13 07:34] LABS: ANION GAP 10 (8-16); BLOOD UREA NITROGEN 25 mg/dl (7-20); CALCIUM 8.7 mg/dl (8.4-10.2); CARBON DIOXIDE 35 mmol/L (21-31); CHLORIDE 99 mmol/L (97-110); CREATININE 0.93 mg/dl (0.44-1.00); GLUCOSE 90 mg/dl (70-220); MAGNESIUM 1.5 mg/dl (1.7-2.5); PHOSPHORUS 2.6 mg/dl (2.5-4.9); POTASSIUM 3.8 mmol/L (3.5-5.1); SODIUM 140 mmol/L (135-144)
[2017-10-13 07:41] LABS: ALBUMIN 2.1 g/dl (3.3-4.9)
[2017-10-13] MEDS: SUCRALFATE 1 GM TAB PO ×4 (08:01→20:58)
[2017-10-13] MEDS: POTASSIUM CHLORIDE (SR) 10 MEQ TAB PO ×3 (08:43→20:58)
[2017-10-13] MEDS: L ACIDOPHIL/B LACTIS/B LONGUM CAPSULE PO ×2 (08:43→20:58)
[2017-10-13] MEDS: LACTULOSE 30ML CUP PO (08:43)
[2017-10-13] MEDS: RIFAXIMIN 550 MG TAB PO ×2 (08:43→20:57)
[2017-10-13] MEDS: AMLODIPINE 5 MG TAB PO (08:44)
[2017-10-13] MEDS: SILVER SULFADIAZINE 1% 25 GM CR TOP (08:50)
[2017-10-13] MEDS: NYSTATIN 30 GM POWDER BTL TOP ×2 (08:50→20:57)
[2017-10-13] MEDS: VITAMIN A & D 5 GM OINT PACKET TOP ×2 (08:50→21:02)
[2017-10-13] MEDS: predniSONE 5 MG TAB PO (08:50)
[2017-10-13] MEDS: FLUTICASONE 0.05% 16 GM NAS SPRAY NASAL ×2 (08:50→20:59)
[2017-10-13] MEDS: NYSTATIN/TRIAMCINOLONE 15 GM CR TOP (08:50)
[2017-10-13] MEDS: INSULIN DETEMIR [LEVEMIR] (100 UNITS/ML) SYG SC ×2 (08:56→21:03)
[2017-10-13] MEDS: ALBUTEROL/IPRATROPIUM (NEB) 3 ML AMP HHN ×4 (09:45→21:00)
[2017-10-13] MEDS: NPH, HUMAN INSULIN ISOPHANE 3ML VIAL SC (11:55)
[2017-10-13] MEDS: MAGNESIUM SULFATE 3 GM in DEXTROSE 5% 100 ML IVPB (12:02)
[2017-10-13 14:05] LABS: ALBUMIN 2.1 g/dL (3.8-4.8); ALPHA-1-GLOBULINS 0.3 g/dL (0.2-0.3); ALPHA-2-GLOBULINS 0.7 g/dL (0.5-0.9); BETA 2 GLOBULINS 0.2 g/dL (0.2-0.5); BETA GLOBULINS 0.2 g/dL (0.4-0.6); GAMMA GLOBULINS 0.7 g/dL (0.8-1.7); HEXAGONAL PHASE CONFIRMATION NEGATIVE (NEGATIVE)
[2017-10-13 14:06] LABS: CARDIOLIPIN AB - IGA <11 APL; CARDIOLIPIN AB - IGG 15 GPL; CARDIOLIPIN AB - IGM <12 MPL; HAPTOGLOBIN 155 mg/dL (43-212); HEPARIN INDUCED PLATELET AB NEGATIVE (NEGATIVE); PLATELET ANTIBODY - IGA NEGATIVE (NEGATIVE); PLATELET ANTIBODY - IGG NEGATIVE (NEGATIVE); PLATELET ANTIBODY - IGM NEGATIVE (NEGATIVE); PROTEIN, TOTAL 4.2 g/dL (6.1-8.1)
[2017-10-13 14:07] LABS: CARDIOLIPIN AB - IGA <11 APL; CARDIOLIPIN AB - IGG 15 GPL; CARDIOLIPIN AB - IGM <12 MPL; HEXAGONAL PHASE CONFIRMATION NEGATIVE (NEGATIVE); PROCALCITONIN 0.19 ng/mL (<0.10)
[2017-10-13] MEDS: MONTELUKAST 10 MG TAB PO (20:58)
[2017-10-13] MEDS: MIRTAZAPINE 15 MG TAB PO (20:58)
[2017-10-13] MEDS: MAGNESIUM OXIDE 400 MG TAB PO (23:45)
[2017-10-13] MEDS: ZOLPIDEM 5 MG TAB PO (23:46)
[2017-10-14] MEDS: INSULIN ASPART [NOVOLOG] 3 ML PEN SC ×7 (01:00→22:21)
[2017-10-14] MEDS: PANTOPRAZOLE 40 MG INJ IV (05:53)
[2017-10-14] MEDS: BUMETANIDE 1 MG INJ IV ×2 (05:53→17:34)
[2017-10-14 06:30] LABS: ADD MAN DIFF? NO
[2017-10-14 06:41] LABS: WHITE BLOOD COUNT 7.1 10^3/ul (4.8-10.8)
[2017-10-14 06:41] LABS: ABNORMAL IP MESSAGE 1; BASOPHILS % 0.6 % (0.0-2.0); EOSINOPHILS # 0.1 10^3/ul (0.0-0.5); EOSINOPHILS % 1.1 % (0.0-7.0); HEMOGLOBIN 10.1 g/dl (12.0-16.0); IMMATURE GRANS #M 0.05 10^3/ul; IMMATURE GRANS % (M) 0.7 %; LYMPHOCYTES # 1.6 10^3/ul (0.8-2.9); MEAN CORPUSCULAR HEMOGLOBIN 30.6 pg (29.0-33.0); MEAN CORPUSCULAR HGB CONC 32.6 g/dl (32.0-37.0); MEAN CORPUSCULAR VOLUME 93.9 fl (82.0-101.0); MONOCYTE # 1.7 10^3/ul (0.3-0.9); MONOCYTES % 24.4 % (0.0-11.0); NEUTROPHIL # 3.6 10^3/ul (1.6-7.5); NEUTROPHILS % 50.2 % (39.0-77.0); NUCLEATED RED BLOOD CELLS% 0.4 /100WBC (0.0-0.0); PLATELET COUNT 161 10^3/UL (140-415); RED CELL DISTRIBUTION WIDTH 15.9 % (11.5-14.5)
[2017-10-14 06:45] LABS: POSITIVE DIFF @See below
[2017-10-14 07:04] LABS: ANION GAP 6 (8-16); BLOOD UREA NITROGEN 25 mg/dl (7-20); CALCIUM 9.1 mg/dl (8.4-10.2); CARBON DIOXIDE 40 mmol/L (21-31); CHLORIDE 97 mmol/L (97-110); CREATININE 1.01 mg/dl (0.44-1.00); GLUCOSE 86 mg/dl (70-220); PHOSPHORUS 2.2 mg/dl (2.5-4.9); POTASSIUM 3.8 mmol/L (3.5-5.1); SODIUM 139 mmol/L (135-144)
[2017-10-14] MEDS: ALBUTEROL/IPRATROPIUM (NEB) 3 ML AMP HHN ×4 (08:07→20:55)
[2017-10-14] MEDS: SUCRALFATE 1 GM TAB PO ×4 (08:26→20:38)
[2017-10-14] MEDS: LACTULOSE 30ML CUP PO (08:27)
[2017-10-14] MEDS: FLUTICASONE 0.05% 16 GM NAS SPRAY NASAL ×2 (08:27→20:40)
[2017-10-14] MEDS: AMLODIPINE 5 MG TAB PO (08:28)
[2017-10-14] MEDS: L ACIDOPHIL/B LACTIS/B LONGUM CAPSULE PO ×2 (08:28→20:38)
[2017-10-14] MEDS: RIFAXIMIN 550 MG TAB PO ×2 (08:28→20:39)
[2017-10-14] MEDS: MAGNESIUM OXIDE 400 MG TAB PO ×2 (08:28→20:39)
[2017-10-14] MEDS: predniSONE 5 MG TAB PO (08:28)
[2017-10-14] MEDS: SILVER SULFADIAZINE 1% 25 GM CR TOP (08:29)
[2017-10-14] MEDS: VITAMIN A & D 5 GM OINT PACKET TOP ×2 (08:29→20:38)
[2017-10-14] MEDS: NYSTATIN 30 GM POWDER BTL TOP ×2 (08:29→20:38)
[2017-10-14] MEDS: NYSTATIN/TRIAMCINOLONE 15 GM CR TOP (08:29)
[2017-10-14] MEDS: POTASSIUM CHLORIDE (SR) 20 MEQ TAB PO ×2 (08:37→20:39)
[2017-10-14 09:17] LABS: AADO2 Arterial 58.1 mmHg (7.0-24.0); Allen Test ACCEPTAB; Arterial Base Excess 12.9 mmol/L (-3.0-3); Arterial Blood Gas Oxygen Sat 96.8 mmHG (95.0-100.0); Arterial COHb 0.3 % (0.0-3.0); Arterial HCO3 38.1 mmol/L (22.0-26.0); Arterial MetHb 0.5 % (0.0-1.5); Arterial Total Hemglobin 10.7 g/dl (12.0-18.0); MODE NASAL CANNULA; Site Left Radial
[2017-10-14] MEDS: INSULIN DETEMIR [LEVEMIR] (100 UNITS/ML) SYG SC ×2 (11:30→20:44)
[2017-10-14] MEDS: NPH, HUMAN INSULIN ISOPHANE 3ML VIAL SC (11:30)
[2017-10-14] MEDS: EPOETIN 10000 UNITS/ML (NON ESRD/NON ONCOLOGY) SC (17:39)
[2017-10-14 18:37] LABS: PTH CALCIUM 8.6 mg/dL (8.6-10.4)
[2017-10-14] MEDS: MONTELUKAST 10 MG TAB PO (20:38)
[2017-10-14] MEDS: MIRTAZAPINE 15 MG TAB PO (20:39)
[2017-10-14] MEDS: LORAZEPAM 2 MG INJ IV (23:07)
[2017-10-15] MEDS: ZOLPIDEM 5 MG TAB PO (00:18)
[2017-10-15] MEDS: ACCU-CHEK XX (02:00)
[2017-10-15] MEDS: BUMETANIDE 1 MG INJ IV ×2 (05:34→17:12)
[2017-10-15] MEDS: PANTOPRAZOLE 40 MG INJ IV (05:34)
[2017-10-15 06:44] LABS: ADD MAN DIFF? NO
[2017-10-15 06:50] LABS: WHITE BLOOD COUNT 10.5 10^3/ul (4.8-10.8)
[2017-10-15 06:50] LABS: ABNORMAL IP MESSAGE 1; BASOPHIL # 0.1 10^3/ul (0.0-0.1); BASOPHILS % 1.1 % (0.0-2.0); EOSINOPHILS # 0.1 10^3/ul (0.0-0.5); EOSINOPHILS % 0.8 % (0.0-7.0); HEMATOCRIT 28.9 % (37.0-47.0); HEMOGLOBIN 9.4 g/dl (12.0-16.0); IMMATURE GRANS #M 0.57 10^3/ul; IMMATURE GRANS % (M) 5.5 %; LYMPHOCYTES # 2.1 10^3/ul (0.8-2.9); LYMPHOCYTES % 19.6 % (15.0-51.0); MEAN CORPUSCULAR HGB CONC 32.5 g/dl (32.0-37.0); MEAN CORPUSCULAR VOLUME 92.3 fl (82.0-101.0); MEAN PLATELET VOLUME 9.3 fl (7.4-10.4); MONOCYTE # 2.5 10^3/ul (0.3-0.9); MONOCYTES % 23.4 % (0.0-11.0); NEUTROPHIL # 5.2 10^3/ul (1.6-7.5); NEUTROPHILS % 49.6 % (39.0-77.0); NUCLEATED RED BLOOD CELLS # 0.2 10^3/ul (0.0-0.0); NUCLEATED RED BLOOD CELLS% 1.8 /100WBC (0.0-0.0); PLATELET COUNT 175 10^3/UL (140-415); RED BLOOD COUNT 3.13 10^6/ul (4.20-5.40); RED CELL DISTRIBUTION WIDTH 15.9 % (11.5-14.5)
[2017-10-15 06:57] LABS: POSITIVE DIFF @See below
[2017-10-15 07:13] LABS: ALANINE AMINOTRANSFERASE 66 IU/L (13-69); ALBUMIN 2.4 g/dl (3.3-4.9); ALBUMIN/GLOBULIN RATIO 0.88; ALKALINE PHOSPHATASE 266 IU/L (42-121); ANION GAP 12 (8-16); ASPARTATE AMINO TRANSFERASE 71 IU/L (15-46); BILIRUBIN,INDIRECT 0.5 mg/dl (0-1.1); BILIRUBIN,TOTAL 0.5 mg/dl (0.2-1.3); BLOOD UREA NITROGEN 25 mg/dl (7-20); CARBON DIOXIDE 36 mmol/L (21-31); CHLORIDE 97 mmol/L (97-110); CREATININE 1.17 mg/dl (0.44-1.00); GLUCOSE 96 mg/dl (70-220); MAGNESIUM 1.5 mg/dl (1.7-2.5); POTASSIUM 3.8 mmol/L (3.5-5.1); SODIUM 141 mmol/L (135-144); TOTAL PROTEIN 5.1 g/dl (6.1-8.1)
[2017-10-15] MEDS: SUCRALFATE 1 GM TAB PO ×4 (07:25→20:58)
[2017-10-15] MEDS: INSULIN ASPART [NOVOLOG] 3 ML PEN SC ×6 (07:55→21:00)
[2017-10-15] MEDS: LACTULOSE 30ML CUP PO (09:00)
[2017-10-15] MEDS: INSULIN DETEMIR [LEVEMIR] (100 UNITS/ML) SYG SC ×2 (09:00→21:19)
[2017-10-15] MEDS: ALBUTEROL/IPRATROPIUM (NEB) 3 ML AMP HHN ×4 (09:00→21:00)
[2017-10-15] MEDS: MAGNESIUM SULFATE 2 GM/50 ML 50 ML IVPB (09:03)
[2017-10-15] MEDS: L ACIDOPHIL/B LACTIS/B LONGUM CAPSULE PO ×2 (09:04→20:58)
[2017-10-15] MEDS: FLUTICASONE 0.05% 16 GM NAS SPRAY NASAL ×2 (09:04→21:00)
[2017-10-15] MEDS: POTASSIUM CHLORIDE (SR) 20 MEQ TAB PO ×2 (09:04→20:59)
[2017-10-15] MEDS: RIFAXIMIN 550 MG TAB PO ×2 (09:05→20:59)
[2017-10-15] MEDS: MAGNESIUM OXIDE 400 MG TAB PO ×2 (09:05→20:59)
[2017-10-15] MEDS: NYSTATIN/TRIAMCINOLONE 15 GM CR TOP (09:05)
[2017-10-15] MEDS: predniSONE 5 MG TAB PO (09:05)
[2017-10-15] MEDS: NYSTATIN 30 GM POWDER BTL TOP ×2 (09:05→21:20)
[2017-10-15] MEDS: SILVER SULFADIAZINE 1% 25 GM CR TOP (09:06)
[2017-10-15] MEDS: VITAMIN A & D 5 GM OINT PACKET TOP ×2 (09:06→20:59)
[2017-10-15] MEDS: AMLODIPINE 5 MG TAB PO (09:06)
[2017-10-15 09:28] LABS: BAND NEUTROPHILS #M 0.4 10^3/ul (0.0-0.6); BAND NEUTROPHILS % (M) 4 % (0-4); BASOPHIL #M 0.1 10^3/ul (0.0-0.0); BASOPHILS % (M) 1 % (0-2); EOSINOPHILS % (M) 2 % (0-7); ERYTHROBLAST% (NRBC) (M) 2 % (0-0); LYMPHOCYTES #M 0.7 10^3/ul (0.8-2.9); LYMPHOCYTES % (M) 7 % (15-51); MONOCYTE #M 0.7 10^3/ul (0.3-0.9); MONOCYTES % (M) 7 % (0-11); MYELOCYTES #M 0.2 10^3/ul (0.0-0.0); MYELOCYTES % (M) 2 % (0-0); PLATELET ESTIMATE NORMAL; SEG NEUT #M 8.1 10^3/ul (1.6-7.5); SEGMENTED NEUTROPHILS (M) % 77 % (39-77); SMUDGE%M 32 % (0-0)
[2017-10-15] MEDS: NPH, HUMAN INSULIN ISOPHANE 3ML VIAL SC (11:26)
[2017-10-15 16:08] LABS: PTH INTACT 39 pg/mL (14-64)
[2017-10-15] MEDS: MONTELUKAST 10 MG TAB PO (20:58)
[2017-10-15] MEDS: MIRTAZAPINE 15 MG TAB PO (20:59)
[2017-10-16] MEDS: ACCU-CHEK XX (02:00)
[2017-10-16] MEDS: BUMETANIDE 1 MG INJ IV ×2 (05:47→18:23)
[2017-10-16] MEDS: PANTOPRAZOLE 40 MG INJ IV (05:47)
[2017-10-16 07:11] LABS: WHITE BLOOD COUNT 11.3 10^3/ul (4.8-10.8)
[2017-10-16 07:11] LABS: ABNORMAL IP MESSAGE 1; HEMATOCRIT 28.9 % (37.0-47.0); HEMOGLOBIN 9.6 g/dl (12.0-16.0); MEAN CORPUSCULAR HEMOGLOBIN 31.4 pg (29.0-33.0); MEAN CORPUSCULAR HGB CONC 33.2 g/dl (32.0-37.0); MEAN CORPUSCULAR VOLUME 94.4 fl (82.0-101.0); MEAN PLATELET VOLUME 9.8 fl (7.4-10.4); PLATELET COUNT 179 10^3/UL (140-415); RED BLOOD COUNT 3.06 10^6/ul (4.20-5.40); RED CELL DISTRIBUTION WIDTH 15.9 % (11.5-14.5)
[2017-10-16 07:12] LABS: POSITIVE DIFF @See below
[2017-10-16 07:13] LABS: ADD MAN DIFF? YES
[2017-10-16 07:48] LABS: ALANINE AMINOTRANSFERASE 67 IU/L (13-69); ALBUMIN 2.3 g/dl (3.3-4.9); ALBUMIN/GLOBULIN RATIO 0.85; ALKALINE PHOSPHATASE 255 IU/L (42-121); ANION GAP 10 (8-16); ASPARTATE AMINO TRANSFERASE 85 IU/L (15-46); BILIRUBIN,INDIRECT 0.4 mg/dl (0-1.1); BILIRUBIN,TOTAL 0.4 mg/dl (0.2-1.3); BLOOD UREA NITROGEN 24 mg/dl (7-20); CALCIUM 9.3 mg/dl (8.4-10.2); CARBON DIOXIDE 36 mmol/L (21-31); CHLORIDE 97 mmol/L (97-110); CREATININE 1.09 mg/dl (0.44-1.00); GLUCOSE 138 mg/dl (70-220); MAGNESIUM 1.7 mg/dl (1.7-2.5); POTASSIUM 3.7 mmol/L (3.5-5.1); SODIUM 139 mmol/L (135-144)
[2017-10-16] MEDS: INSULIN ASPART [NOVOLOG] 3 ML PEN SC ×7 (07:55→21:47)
[2017-10-16] MEDS: VITAMIN A & D 5 GM OINT PACKET TOP ×2 (08:29→21:23)
[2017-10-16] MEDS: FLUTICASONE 0.05% 16 GM NAS SPRAY NASAL ×2 (08:29→21:26)
[2017-10-16] MEDS: LACTULOSE 30ML CUP PO (08:29)
[2017-10-16] MEDS: OCULAR LUBRICANT 3.5 GM OPH OINT OP (08:30)
[2017-10-16] MEDS: NYSTATIN/TRIAMCINOLONE 15 GM CR TOP (08:30)
[2017-10-16] MEDS: SILVER SULFADIAZINE 1% 25 GM CR TOP (08:30)
[2017-10-16] MEDS: POTASSIUM CHLORIDE (SR) 20 MEQ TAB PO ×2 (08:31→21:24)
[2017-10-16] MEDS: MAGNESIUM OXIDE 400 MG TAB PO ×2 (08:31→21:24)
[2017-10-16] MEDS: L ACIDOPHIL/B LACTIS/B LONGUM CAPSULE PO ×2 (08:31→21:24)
[2017-10-16] MEDS: predniSONE 5 MG TAB PO (08:31)
[2017-10-16] MEDS: SUCRALFATE 1 GM TAB PO ×4 (08:31→21:24)
[2017-10-16] MEDS: AMLODIPINE 5 MG TAB PO (08:31)
[2017-10-16] MEDS: RIFAXIMIN 550 MG TAB PO ×2 (08:31→21:25)
[2017-10-16] MEDS: ALBUTEROL/IPRATROPIUM (NEB) 3 ML AMP HHN ×4 (09:30→20:26)
[2017-10-16 09:38] LABS: ANISOCYTOSIS 1+ (0-0); BAND NEUTROPHILS #M 0.9 10^3/ul (0.0-0.6); BAND NEUTROPHILS % (M) 8 % (0-4); EOSINOPHILS % (M) 2 % (0-7); ERYTHROBLAST% (NRBC) (M) 13 % (0-0); LYMPHOCYTES #M 0.6 10^3/ul (0.8-2.9); LYMPHOCYTES % (M) 6 % (15-51); MONOCYTE #M 1.9 10^3/ul (0.3-0.9); MONOCYTES % (M) 17 % (0-11); MYELOCYTES #M 0.1 10^3/ul (0.0-0.0); MYELOCYTES % (M) 1 % (0-0); PLASMA CELLS #M 0.1 10^3/ul (0.0-0.0); PLASMAC%(M) 1 % (0); PLATELET ESTIMATE NORMAL; POLYCHROMASIA 1+ (0-0); SEG NEUT #M 7.4 10^3/ul (1.6-7.5); SEGMENTED NEUTROPHILS (M) % 65 % (39-77); SMUDGE%M 19 % (0-0)
[2017-10-16] MEDS: NYSTATIN 30 GM POWDER BTL TOP ×2 (11:24→21:26)
[2017-10-16] MEDS: NPH, HUMAN INSULIN ISOPHANE 3ML VIAL SC (11:34)
[2017-10-16] MEDS: INSULIN DETEMIR [LEVEMIR] (100 UNITS/ML) SYG SC ×2 (11:35→20:00)
[2017-10-16] MEDS: MAGNESIUM SULFATE 2 GM/50 ML 50 ML IVPB (11:45)
[2017-10-16] MEDS: EPOETIN 10000 UNITS/ML (NON ESRD/NON ONCOLOGY) SC (18:24)
[2017-10-16] MEDS: MIRTAZAPINE 15 MG TAB PO (21:24)
[2017-10-16] MEDS: MONTELUKAST 10 MG TAB PO (21:24)
[2017-10-17] MEDS: ACCU-CHEK XX (02:00)
[2017-10-17] MEDS: BUMETANIDE 1 MG INJ IV ×2 (05:59→17:43)
[2017-10-17] MEDS: PANTOPRAZOLE 40 MG INJ IV (05:59)
[2017-10-17] MEDS: SUCRALFATE 1 GM TAB PO ×4 (06:03→21:35)
[2017-10-17 06:14] LABS: ABNORMAL IP MESSAGE 1; HEMATOCRIT 28.6 % (37.0-47.0); HEMOGLOBIN 9.3 g/dl (12.0-16.0); MEAN CORPUSCULAR HEMOGLOBIN 30.8 pg (29.0-33.0); MEAN CORPUSCULAR HGB CONC 32.5 g/dl (32.0-37.0); MEAN CORPUSCULAR VOLUME 94.7 fl (82.0-101.0); MEAN PLATELET VOLUME 9.9 fl (7.4-10.4); NUCLEATED RED BLOOD CELLS% 5.8 /100WBC (0.0-0.0); PLATELET COUNT 187 10^3/UL (140-415); RED BLOOD COUNT 3.02 10^6/ul (4.20-5.40); RED CELL DISTRIBUTION WIDTH 16.2 % (11.5-14.5)
[2017-10-17 06:14] LABS: WHITE BLOOD COUNT 13.4 10^3/ul (4.8-10.8)
[2017-10-17 06:25] LABS: POSITIVE DIFF @See below
[2017-10-17 06:26] LABS: ADD MAN DIFF? YES
[2017-10-17 06:45] LABS: ALANINE AMINOTRANSFERASE 68 IU/L (13-69); ALBUMIN 2.2 g/dl (3.3-4.9); ALBUMIN/GLOBULIN RATIO 0.88; ALKALINE PHOSPHATASE 253 IU/L (42-121); ANION GAP 11 (8-16); ASPARTATE AMINO TRANSFERASE 92 IU/L (15-46); BILIRUBIN,INDIRECT 0.5 mg/dl (0-1.1); BILIRUBIN,TOTAL 0.5 mg/dl (0.2-1.3); BLOOD UREA NITROGEN 28 mg/dl (7-20); CALCIUM 9.5 mg/dl (8.4-10.2); CARBON DIOXIDE 34 mmol/L (21-31); CHLORIDE 98 mmol/L (97-110); CREATININE 1.26 mg/dl (0.44-1.00); GLUCOSE 154 mg/dl (70-220); MAGNESIUM 2.2 mg/dl (1.7-2.5); POTASSIUM 4.1 mmol/L (3.5-5.1); SODIUM 139 mmol/L (135-144); TOTAL PROTEIN 4.7 g/dl (6.1-8.1)
[2017-10-17 06:51] LABS: AMMONIA 24 umol/l (9-30)
[2017-10-17 06:54] LABS: PREALBUMIN 10.7 mg/dl (17.6-36.0)
[2017-10-17 07:37] LABS: BAND NEUTROPHILS #M 0.8 10^3/ul (0.0-0.6); BAND NEUTROPHILS % (M) 6 % (0-4); EOSINOPHILS % (M) 1 % (0-7); ERYTHROBLAST% (NRBC) (M) 20 % (0-0); GIANT THROMBO% (M) 1 % (0-0); LYMPHOCYTES #M 2.8 10^3/ul (0.8-2.9); LYMPHOCYTES % (M) 21 % (15-51); METAMYELOCYTES #M 0.5 10^3/ul (0.0-0.0); METAMYELOCYTES %M 4 % (0-0); MONOCYTE #M 2.8 10^3/ul (0.3-0.9); MONOCYTES % (M) 21 % (0-11); MYELOCYTES #M 1.2 10^3/ul (0.0-0.0); MYELOCYTES % (M) 9 % (0-0); PLATELET ESTIMATE NORMAL; POLYCHROMASIA 1+ (0-0); PROMYELOCYTES #M 0.2 10^3/ul (0-0); PROMYELOCYTES % (M) 2 % (0-0); REACTIVE LYMPHOCYTES #M 0.2 10^3/ul (0.0-0.0); REACTIVE LYMPHOCYTES% (M) 2 % (0-0); SEG NEUT #M 4.7 10^3/ul (1.6-7.5); SEGMENTED NEUTROPHILS (M) % 34 % (39-77); SMUDGE%M 16 % (0-0); SPHEROCYTES 1+ (0-0)
[2017-10-17] MEDS: NYSTATIN/TRIAMCINOLONE 15 GM CR TOP (08:31)
[2017-10-17] MEDS: VITAMIN A & D 5 GM OINT PACKET TOP ×2 (08:31→21:34)
[2017-10-17] MEDS: FLUTICASONE 0.05% 16 GM NAS SPRAY NASAL ×2 (08:32→21:36)
[2017-10-17] MEDS: L ACIDOPHIL/B LACTIS/B LONGUM CAPSULE PO ×2 (08:32→21:34)
[2017-10-17] MEDS: SILVER SULFADIAZINE 1% 25 GM CR TOP (08:32)
[2017-10-17] MEDS: RIFAXIMIN 550 MG TAB PO ×2 (08:32→21:34)
[2017-10-17] MEDS: LACTULOSE 30ML CUP PO (08:32)
[2017-10-17] MEDS: NYSTATIN 30 GM POWDER BTL TOP ×2 (08:32→21:36)
[2017-10-17] MEDS: POTASSIUM CHLORIDE (SR) 20 MEQ TAB PO ×2 (08:33→21:35)
[2017-10-17] MEDS: MAGNESIUM OXIDE 400 MG TAB PO ×2 (08:33→21:00)
[2017-10-17] MEDS: predniSONE 5 MG TAB PO (08:33)
[2017-10-17] MEDS: AMLODIPINE 5 MG TAB PO (08:33)
[2017-10-17] MEDS: INSULIN DETEMIR [LEVEMIR] (100 UNITS/ML) SYG SC ×2 (08:55→21:59)
[2017-10-17] MEDS: INSULIN ASPART [NOVOLOG] 3 ML PEN SC ×7 (08:55→22:01)
[2017-10-17] MEDS: ALBUTEROL/IPRATROPIUM (NEB) 3 ML AMP HHN ×2 (10:43→20:21)
[2017-10-17] MEDS: NPH, HUMAN INSULIN ISOPHANE 3ML VIAL SC (12:42)
[2017-10-17] MEDS: AL HYDROX/MG HYDROX/SIMETH 30 ML CUP PO (14:48)
[2017-10-17] MEDS: MIRTAZAPINE 15 MG TAB PO (21:34)
[2017-10-17] MEDS: MONTELUKAST 10 MG TAB PO (21:34)
[2017-10-18] MEDS: ACCU-CHEK XX (02:00)
[2017-10-18] MEDS: SUCRALFATE 1 GM TAB PO ×4 (06:21→20:17)
[2017-10-18] MEDS: BUMETANIDE 1 MG INJ IV ×2 (06:22→17:45)
[2017-10-18] MEDS: PANTOPRAZOLE 40 MG INJ IV (06:22)
[2017-10-18 06:41] LABS: WHITE BLOOD COUNT 12.1 10^3/ul (4.8-10.8)
[2017-10-18 06:41] LABS: ABNORMAL IP MESSAGE 1; HEMATOCRIT 30.4 % (37.0-47.0); HEMOGLOBIN 9.7 g/dl (12.0-16.0); MEAN CORPUSCULAR HEMOGLOBIN 30.2 pg (29.0-33.0); MEAN CORPUSCULAR HGB CONC 31.9 g/dl (32.0-37.0); MEAN CORPUSCULAR VOLUME 94.7 fl (82.0-101.0); MEAN PLATELET VOLUME 9.7 fl (7.4-10.4); NUCLEATED RED BLOOD CELLS% 3.1 /100WBC (0.0-0.0); PLATELET COUNT 169 10^3/UL (140-415); RED BLOOD COUNT 3.21 10^6/ul (4.20-5.40)
[2017-10-18 06:42] LABS: ADD MAN DIFF? YES; POSITIVE DIFF @See below
[2017-10-18 07:01] LABS: AMMONIA 19 umol/l (9-30)
[2017-10-18 07:13] LABS: ANISOCYTOSIS 1+ (0-0); BAND NEUTROPHILS #M 0.4 10^3/ul (0.0-0.6); BAND NEUTROPHILS % (M) 4 % (0-4); ERYTHROBLAST% (NRBC) (M) 1 % (0-0); GIANT THROMBO% (M) 1 % (0-0); LYMPHOCYTES #M 1.5 10^3/ul (0.8-2.9); LYMPHOCYTES % (M) 13 % (15-51); MONOCYTE #M 2.5 10^3/ul (0.3-0.9); MONOCYTES % (M) 21 % (0-11); MYELOCYTES #M 0.7 10^3/ul (0.0-0.0); MYELOCYTES % (M) 6 % (0-0); PLATELET ESTIMATE NORMAL; POLYCHROMASIA 2+ (0-0); REACTIVE LYMPHOCYTES #M 0.3 10^3/ul (0.0-0.0); REACTIVE LYMPHOCYTES% (M) 3 % (0-0); SEG NEUT #M 6.5 10^3/ul (1.6-7.5); SEGMENTED NEUTROPHILS (M) % 53 % (39-77); SMUDGE%M 35 % (0-0)
[2017-10-18 07:14] LABS: ALANINE AMINOTRANSFERASE 69 IU/L (13-69); ALBUMIN 2.3 g/dl (3.3-4.9); ALBUMIN/GLOBULIN RATIO 0.85; ALKALINE PHOSPHATASE 254 IU/L (42-121); ANION GAP 10 (8-16); ASPARTATE AMINO TRANSFERASE 89 IU/L (15-46); BILIRUBIN,INDIRECT 0.5 mg/dl (0-1.1); BILIRUBIN,TOTAL 0.5 mg/dl (0.2-1.3); BLOOD UREA NITROGEN 32 mg/dl (7-20); CALCIUM 9.6 mg/dl (8.4-10.2); CARBON DIOXIDE 34 mmol/L (21-31); CHLORIDE 100 mmol/L (97-110); CREATININE 1.33 mg/dl (0.44-1.00); GLUCOSE 149 mg/dl (70-220); MAGNESIUM 1.6 mg/dl (1.7-2.5); SODIUM 140 mmol/L (135-144)
[2017-10-18] MEDS: INSULIN DETEMIR [LEVEMIR] (100 UNITS/ML) SYG SC ×2 (08:00→20:36)
[2017-10-18] MEDS: INSULIN ASPART [NOVOLOG] 3 ML PEN SC ×8 (08:23→20:36)
[2017-10-18] MEDS: ALBUTEROL/IPRATROPIUM (NEB) 3 ML AMP HHN ×3 (09:07→20:06)
[2017-10-18] MEDS: L ACIDOPHIL/B LACTIS/B LONGUM CAPSULE PO ×2 (09:40→20:16)
[2017-10-18] MEDS: AMLODIPINE 5 MG TAB PO (09:40)
[2017-10-18] MEDS: POTASSIUM CHLORIDE (SR) 20 MEQ TAB PO ×2 (09:40→20:17)
[2017-10-18] MEDS: MAGNESIUM OXIDE 400 MG TAB PO ×2 (09:40→20:17)
[2017-10-18] MEDS: RIFAXIMIN 550 MG TAB PO ×2 (09:40→20:17)
[2017-10-18] MEDS: LACTULOSE 30ML CUP PO (09:41)
[2017-10-18] MEDS: VITAMIN A & D 5 GM OINT PACKET TOP ×2 (09:41→20:22)
[2017-10-18] MEDS: FLUTICASONE 0.05% 16 GM NAS SPRAY NASAL ×2 (09:41→20:19)
[2017-10-18] MEDS: SILVER SULFADIAZINE 1% 25 GM CR TOP (09:42)
[2017-10-18] MEDS: MAGNESIUM SULFATE 2 GM/50 ML 50 ML IVPB (09:42)
[2017-10-18] MEDS: predniSONE 5 MG TAB PO (09:42)
[2017-10-18] MEDS: NYSTATIN/TRIAMCINOLONE 15 GM CR TOP (09:42)
[2017-10-18] MEDS: NYSTATIN 30 GM POWDER BTL TOP ×2 (09:42→20:23)
[2017-10-18] MEDS: NPH, HUMAN INSULIN ISOPHANE 3ML VIAL SC (12:05)
[2017-10-18 15:55] LABS: TRANSFERRIN 119 mg/dL (188-341)
[2017-10-18] MEDS: EPOETIN 10000 UNITS/ML (NON ESRD/NON ONCOLOGY) SC (17:50)
[2017-10-18] MEDS: MIRTAZAPINE 15 MG TAB PO (20:17)
[2017-10-18] MEDS: MONTELUKAST 10 MG TAB PO (20:17)
[2017-10-18] MEDS: AL HYDROX/MG HYDROX/SIMETH 30 ML CUP PO (22:16)
[2017-10-19] MEDS: ACCU-CHEK XX (02:00)
[2017-10-19] MEDS: AL HYDROX/MG HYDROX/SIMETH 30 ML CUP PO (05:10)
[2017-10-19] MEDS: PANTOPRAZOLE 40 MG INJ IV (05:10)
[2017-10-19] MEDS: BUMETANIDE 1 MG INJ IV ×2 (05:10→17:38)
[2017-10-19 06:38] LABS: WHITE BLOOD COUNT 11.3 10^3/ul (4.8-10.8)
[2017-10-19 06:38] LABS: ABNORMAL IP MESSAGE 1; HEMATOCRIT 28.4 % (37.0-47.0); HEMOGLOBIN 9.1 g/dl (12.0-16.0); MEAN CORPUSCULAR HEMOGLOBIN 30.4 pg (29.0-33.0); MEAN PLATELET VOLUME 10.1 fl (7.4-10.4); NUCLEATED RED BLOOD CELLS% 2.7 /100WBC (0.0-0.0); PLATELET COUNT 140 10^3/UL (140-415); RED BLOOD COUNT 2.99 10^6/ul (4.20-5.40); RED CELL DISTRIBUTION WIDTH 17.5 % (11.5-14.5)
[2017-10-19 06:51] LABS: ADD MAN DIFF? YES; POSITIVE DIFF @See below
[2017-10-19 07:20] LABS: ALANINE AMINOTRANSFERASE 68 IU/L (13-69); ALBUMIN 2.1 g/dl (3.3-4.9); ALBUMIN/GLOBULIN RATIO 0.77; ALKALINE PHOSPHATASE 257 IU/L (42-121); ANION GAP 8 (8-16); ASPARTATE AMINO TRANSFERASE 88 IU/L (15-46); BILIRUBIN,INDIRECT 0.4 mg/dl (0-1.1); BILIRUBIN,TOTAL 0.4 mg/dl (0.2-1.3); BLOOD UREA NITROGEN 32 mg/dl (7-20); CALCIUM 9.3 mg/dl (8.4-10.2); CARBON DIOXIDE 35 mmol/L (21-31); CHLORIDE 99 mmol/L (97-110); CREATININE 1.23 mg/dl (0.44-1.00); GLUCOSE 206 mg/dl (70-220); MAGNESIUM 1.9 mg/dl (1.7-2.5); POTASSIUM 4.1 mmol/L (3.5-5.1); SODIUM 138 mmol/L (135-144); TOTAL PROTEIN 4.8 g/dl (6.1-8.1)
[2017-10-19] MEDS: ALBUTEROL/IPRATROPIUM (NEB) 3 ML AMP HHN ×3 (07:46→19:42)
[2017-10-19] MEDS: INSULIN ASPART [NOVOLOG] 3 ML PEN SC ×7 (07:48→20:23)
[2017-10-19 08:13] LABS: AMMONIA 40 umol/l (9-30)
[2017-10-19] MEDS: VITAMIN A & D 5 GM OINT PACKET TOP ×2 (08:30→20:24)
[2017-10-19] MEDS: POTASSIUM CHLORIDE (SR) 20 MEQ TAB PO ×2 (08:30→20:21)
[2017-10-19] MEDS: predniSONE 5 MG TAB PO (08:30)
[2017-10-19] MEDS: RIFAXIMIN 550 MG TAB PO ×2 (08:30→20:21)
[2017-10-19] MEDS: MAGNESIUM OXIDE 400 MG TAB PO ×2 (08:30→20:21)
[2017-10-19] MEDS: SUCRALFATE 1 GM TAB PO ×4 (08:30→20:21)
[2017-10-19] MEDS: AMLODIPINE 5 MG TAB PO (08:31)
[2017-10-19] MEDS: FLUTICASONE 0.05% 16 GM NAS SPRAY NASAL ×2 (08:32→20:24)
[2017-10-19] MEDS: NYSTATIN 30 GM POWDER BTL TOP ×2 (08:33→20:25)
[2017-10-19] MEDS: NYSTATIN/TRIAMCINOLONE 15 GM CR TOP (08:33)
[2017-10-19] MEDS: SILVER SULFADIAZINE 1% 25 GM CR TOP (08:33)
[2017-10-19] MEDS: LACTULOSE 30ML CUP PO (08:36)
[2017-10-19] MEDS: L ACIDOPHIL/B LACTIS/B LONGUM CAPSULE PO ×2 (08:41→20:21)
[2017-10-19] MEDS: INSULIN DETEMIR [LEVEMIR] (100 UNITS/ML) SYG SC ×2 (08:44→20:21)
[2017-10-19 10:04] LABS: ANISOCYTOSIS 2+ (0-0); BAND NEUTROPHILS #M 0.6 10^3/ul (0.0-0.6); BAND NEUTROPHILS % (M) 6 % (0-4); BASOPHIL #M 0.2 10^3/ul (0.0-0.0); BASOPHILS % (M) 2 % (0-2); ERYTHROBLAST% (NRBC) (M) 3 % (0-0); LYMPHOCYTES #M 1.2 10^3/ul (0.8-2.9); LYMPHOCYTES % (M) 11 % (15-51); METAMYELOCYTES #M 0.2 10^3/ul (0.0-0.0); METAMYELOCYTES %M 2 % (0-0); MONOCYTE #M 1.2 10^3/ul (0.3-0.9); MONOCYTES % (M) 11 % (0-11); MYELOCYTES #M 0.5 10^3/ul (0.0-0.0); MYELOCYTES % (M) 5 % (0-0); PLATELET ESTIMATE NORMAL; POLYCHROMASIA 3+ (0-0); PROMYELOCYTES #M 0.3 10^3/ul (0-0); PROMYELOCYTES % (M) 3 % (0-0); REACTIVE LYMPHOCYTES #M 0.9 10^3/ul (0.0-0.0); REACTIVE LYMPHOCYTES% (M) 8 % (0-0); SEG NEUT #M 5.9 10^3/ul (1.6-7.5); SEGMENTED NEUTROPHILS (M) % 52 % (39-77); SMUDGE%M 9 % (0-0)
[2017-10-19] MEDS: NPH, HUMAN INSULIN ISOPHANE 3ML VIAL SC (12:04)
[2017-10-19 14:39] LABS: AADO2 Arterial 89.1 mmHg (7.0-24.0); Allen Test ACCEPTAB; Arterial Base Excess 4.5 mmol/L (-3.0-3); Arterial Blood Gas Oxygen Sat 93.3 mmHG (95.0-100.0); Arterial COHb 0.3 % (0.0-3.0); Arterial Fraction of Oxyhgb 92.2 % (93.0-99.0); Arterial HCO3 29.5 mmol/L (22.0-26.0); Arterial MetHb 0.9 % (0.0-1.5); Arterial Total Hemglobin 10.6 g/dl (12.0-18.0); MODE NASAL CANNULA; Site Right Radial
[2017-10-19] MEDS: MONTELUKAST 10 MG TAB PO (20:21)
[2017-10-19] MEDS: MIRTAZAPINE 15 MG TAB PO (20:22)
[2017-10-20] MEDS: ACCU-CHEK XX (02:00)
[2017-10-20] MEDS: ACETAMINOPHEN 325 MG TAB PO (03:30)
[2017-10-20] MEDS: SUCRALFATE 1 GM TAB PO ×4 (06:07→20:50)
[2017-10-20] MEDS: PANTOPRAZOLE 40 MG INJ IV (06:07)
[2017-10-20] MEDS: BUMETANIDE 1 MG INJ IV ×2 (06:07→17:41)
[2017-10-20] MEDS: INSULIN ASPART [NOVOLOG] 3 ML PEN SC ×7 (07:55→20:53)
[2017-10-20] MEDS: ALBUTEROL/IPRATROPIUM (NEB) 3 ML AMP HHN ×3 (08:20→20:37)
[2017-10-20] MEDS: predniSONE 5 MG TAB PO (08:28)
[2017-10-20] MEDS: RIFAXIMIN 550 MG TAB PO ×2 (08:28→20:50)
[2017-10-20] MEDS: L ACIDOPHIL/B LACTIS/B LONGUM CAPSULE PO ×2 (08:28→20:50)
[2017-10-20] MEDS: POTASSIUM CHLORIDE (SR) 20 MEQ TAB PO ×2 (08:28→20:50)
[2017-10-20] MEDS: LACTULOSE 30ML CUP PO (08:28)
[2017-10-20] MEDS: MAGNESIUM OXIDE 400 MG TAB PO ×2 (08:28→20:50)
[2017-10-20] MEDS: AMLODIPINE 5 MG TAB PO (08:30)
[2017-10-20] MEDS: FLUTICASONE 0.05% 16 GM NAS SPRAY NASAL ×2 (08:30→20:49)
[2017-10-20] MEDS: NYSTATIN 30 GM POWDER BTL TOP ×2 (08:31→20:51)
[2017-10-20] MEDS: SILVER SULFADIAZINE 1% 25 GM CR TOP (08:31)
[2017-10-20] MEDS: NYSTATIN/TRIAMCINOLONE 15 GM CR TOP (08:32)
[2017-10-20 08:38] LABS: ABNORMAL IP MESSAGE 1; HEMATOCRIT 30.9 % (37.0-47.0); HEMOGLOBIN 9.7 g/dl (12.0-16.0); MEAN CORPUSCULAR HEMOGLOBIN 30.2 pg (29.0-33.0); MEAN CORPUSCULAR HGB CONC 31.4 g/dl (32.0-37.0); MEAN CORPUSCULAR VOLUME 96.3 fl (82.0-101.0); MEAN PLATELET VOLUME 10.3 fl (7.4-10.4); NUCLEATED RED BLOOD CELLS% 1.4 /100WBC (0.0-0.0); PLATELET COUNT 145 10^3/UL (140-415); RED BLOOD COUNT 3.21 10^6/ul (4.20-5.40); RED CELL DISTRIBUTION WIDTH 17.6 % (11.5-14.5)
[2017-10-20 08:38] LABS: WHITE BLOOD COUNT 9.2 10^3/ul (4.8-10.8)
[2017-10-20 08:42] LABS: POSITIVE DIFF @See below
[2017-10-20 08:43] LABS: ADD MAN DIFF? YES
[2017-10-20] MEDS: INSULIN DETEMIR [LEVEMIR] (100 UNITS/ML) SYG SC ×2 (08:43→20:53)
[2017-10-20] MEDS: NPH, HUMAN INSULIN ISOPHANE 3ML VIAL SC (08:43)
[2017-10-20 09:07] LABS: ALANINE AMINOTRANSFERASE 73 IU/L (13-69); ALBUMIN 2.4 g/dl (3.3-4.9); ALBUMIN/GLOBULIN RATIO 0.82; ALKALINE PHOSPHATASE 272 IU/L (42-121); ANION GAP 8 (8-16); ASPARTATE AMINO TRANSFERASE 113 IU/L (15-46); BILIRUBIN,INDIRECT 0.5 mg/dl (0-1.1); BILIRUBIN,TOTAL 0.5 mg/dl (0.2-1.3); BLOOD UREA NITROGEN 31 mg/dl (7-20); CALCIUM 9.4 mg/dl (8.4-10.2); CARBON DIOXIDE 36 mmol/L (21-31); CHLORIDE 99 mmol/L (97-110); CREATININE 1.21 mg/dl (0.44-1.00); GLUCOSE 107 mg/dl (70-220); MAGNESIUM 1.7 mg/dl (1.7-2.5); POTASSIUM 3.9 mmol/L (3.5-5.1); SODIUM 139 mmol/L (135-144); TOTAL PROTEIN 5.3 g/dl (6.1-8.1)
[2017-10-20 10:46] LABS: ANISOCYTOSIS 1+ (0-0); BAND NEUTROPHILS % (M) 1 % (0-4); BASOPHIL #M 0.1 10^3/ul (0.0-0.0); BASOPHILS % (M) 2 % (0-2); EOSINOPHILS % (M) 1 % (0-7); ERYTHROBLAST% (NRBC) (M) 2 % (0-0); LYMPHOCYTES #M 1.1 10^3/ul (0.8-2.9); LYMPHOCYTES % (M) 13 % (15-51); METAMYELOCYTES %M 1 % (0-0); MONOCYTE #M 0.8 10^3/ul (0.3-0.9); MONOCYTES % (M) 9 % (0-11); MYELOCYTES % (M) 1 % (0-0); PLATELET ESTIMATE NORMAL; POLYCHROMASIA 2+ (0-0); SEG NEUT #M 6.6 10^3/ul (1.6-7.5); SEGMENTED NEUTROPHILS (M) % 72 % (39-77); SMUDGE%M 14 % (0-0)
[2017-10-20] MEDS: CEPASTAT LOZENGE MT (17:41)
[2017-10-20] MEDS: MIRTAZAPINE 15 MG TAB PO (20:50)
[2017-10-20] MEDS: MONTELUKAST 10 MG TAB PO (20:50)
[2017-10-21] MEDS: CEPASTAT LOZENGE MT ×2 (01:24→23:01)
[2017-10-21] MEDS: ACCU-CHEK XX (02:00)
[2017-10-21] MEDS: PANTOPRAZOLE 40 MG INJ IV (05:08)
[2017-10-21] MEDS: BUMETANIDE 1 MG INJ IV (05:08)
[2017-10-21] MEDS: INSULIN ASPART [NOVOLOG] 3 ML PEN SC ×7 (07:55→21:09)
[2017-10-21] MEDS: ALBUTEROL/IPRATROPIUM (NEB) 3 ML AMP HHN ×3 (08:41→19:53)
[2017-10-21] MEDS: POTASSIUM CHLORIDE (SR) 20 MEQ TAB PO ×2 (08:55→21:03)
[2017-10-21] MEDS: RIFAXIMIN 550 MG TAB PO ×2 (08:55→21:00)
[2017-10-21] MEDS: MAGNESIUM OXIDE 400 MG TAB PO ×2 (08:55→21:00)
[2017-10-21] MEDS: SUCRALFATE 1 GM TAB PO ×4 (08:55→21:00)
[2017-10-21] MEDS: L ACIDOPHIL/B LACTIS/B LONGUM CAPSULE PO ×2 (08:55→20:59)
[2017-10-21] MEDS: predniSONE 5 MG TAB PO (08:56)
[2017-10-21] MEDS: AMLODIPINE 5 MG TAB PO (08:57)
[2017-10-21] MEDS: OCULAR LUBRICANT 3.5 GM OPH OINT OP (08:59)
[2017-10-21] MEDS: LACTULOSE 30ML CUP PO (09:00)
[2017-10-21] MEDS: NYSTATIN 30 GM POWDER BTL TOP ×2 (09:01→21:03)
[2017-10-21] MEDS: NYSTATIN/TRIAMCINOLONE 15 GM CR TOP (09:01)
[2017-10-21] MEDS: FLUTICASONE 0.05% 16 GM NAS SPRAY NASAL ×2 (09:01→21:00)
[2017-10-21] MEDS: SILVER SULFADIAZINE 1% 25 GM CR TOP (09:02)
[2017-10-21] MEDS: NPH, HUMAN INSULIN ISOPHANE 3ML VIAL SC (09:09)
[2017-10-21 09:11] LABS: ADD MAN DIFF? NO
[2017-10-21 09:12] LABS: ABNORMAL IP MESSAGE 1; BASOPHIL # 0.2 10^3/ul (0.0-0.1); BASOPHILS % 1.5 % (0.0-2.0); EOSINOPHILS # 0.1 10^3/ul (0.0-0.5); EOSINOPHILS % 1.3 % (0.0-7.0); HEMATOCRIT 30.8 % (37.0-47.0); HEMOGLOBIN 9.8 g/dl (12.0-16.0); LYMPHOCYTES # 1.7 10^3/ul (0.8-2.9); LYMPHOCYTES % 16.6 % (15.0-51.0); MEAN CORPUSCULAR HEMOGLOBIN 30.3 pg (29.0-33.0); MEAN CORPUSCULAR HGB CONC 31.8 g/dl (32.0-37.0); MEAN CORPUSCULAR VOLUME 95.4 fl (82.0-101.0); MEAN PLATELET VOLUME 10.9 fl (7.4-10.4); MONOCYTE # 2.1 10^3/ul (0.3-0.9); MONOCYTES % 20.6 % (0.0-11.0); NEUTROPHIL # 5.9 10^3/ul (1.6-7.5); NEUTROPHILS % 57.7 % (39.0-77.0); NUCLEATED RED BLOOD CELLS # 0.1 10^3/ul (0.0-0.0); NUCLEATED RED BLOOD CELLS% 0.9 /100WBC (0.0-0.0); PLATELET COUNT 151 10^3/UL (140-415); RED BLOOD COUNT 3.23 10^6/ul (4.20-5.40); RED CELL DISTRIBUTION WIDTH 17.6 % (11.5-14.5)
[2017-10-21 09:12] LABS: WHITE BLOOD COUNT 10.2 10^3/ul (4.8-10.8)
[2017-10-21 09:13] LABS: POSITIVE DIFF @See below
[2017-10-21 09:59] LABS: AMMONIA 57 umol/l (9-30)
[2017-10-21 10:02] LABS: ALANINE AMINOTRANSFERASE 65 IU/L (13-69); ALBUMIN 2.3 g/dl (3.3-4.9); ALBUMIN/GLOBULIN RATIO 0.79; ALKALINE PHOSPHATASE 272 IU/L (42-121); ANION GAP 10 (8-16); ASPARTATE AMINO TRANSFERASE 91 IU/L (15-46); BILIRUBIN,INDIRECT 0.5 mg/dl (0-1.1); BILIRUBIN,TOTAL 0.5 mg/dl (0.2-1.3); BLOOD UREA NITROGEN 33 mg/dl (7-20); CALCIUM 9.3 mg/dl (8.4-10.2); CARBON DIOXIDE 35 mmol/L (21-31); CHLORIDE 98 mmol/L (97-110); CREATININE 1.27 mg/dl (0.44-1.00); GLUCOSE 133 mg/dl (70-220); MAGNESIUM 1.5 mg/dl (1.7-2.5); POTASSIUM 4.1 mmol/L (3.5-5.1); SODIUM 139 mmol/L (135-144); TOTAL PROTEIN 5.2 g/dl (6.1-8.1)
[2017-10-21] MEDS: INSULIN DETEMIR [LEVEMIR] (100 UNITS/ML) SYG SC ×2 (12:17→21:10)
[2017-10-21] MEDS: EPOETIN 10000 UNITS/ML (NON ESRD/NON ONCOLOGY) SC (17:50)
[2017-10-21] MEDS: MONTELUKAST 10 MG TAB PO (20:59)
[2017-10-21] MEDS: MIRTAZAPINE 15 MG TAB PO (21:00)
[2017-10-21] MEDS: ACETAMINOPHEN 325 MG TAB PO (23:58)
[2017-10-22] MEDS: ACCU-CHEK XX (02:53)
[2017-10-22] MEDS: INSULIN ASPART [NOVOLOG] 3 ML PEN SC ×10 (03:10→21:32)
[2017-10-22] MEDS: PANTOPRAZOLE 40 MG INJ IV ×3 (05:15→05:39)
[2017-10-22 07:18] LABS: ADD MAN DIFF? NO
[2017-10-22 07:24] LABS: WHITE BLOOD COUNT 12.2 10^3/ul (4.8-10.8)
[2017-10-22 07:24] LABS: ABNORMAL IP MESSAGE 1; BASOPHIL # 0.2 10^3/ul (0.0-0.1); BASOPHILS % 1.2 % (0.0-2.0); EOSINOPHILS # 0.2 10^3/ul (0.0-0.5); EOSINOPHILS % 1.3 % (0.0-7.0); HEMATOCRIT 31.5 % (37.0-47.0); HEMOGLOBIN 10.1 g/dl (12.0-16.0); LYMPHOCYTES # 1.3 10^3/ul (0.8-2.9); LYMPHOCYTES % 10.9 % (15.0-51.0); MEAN CORPUSCULAR HEMOGLOBIN 30.3 pg (29.0-33.0); MEAN CORPUSCULAR HGB CONC 32.1 g/dl (32.0-37.0); MEAN CORPUSCULAR VOLUME 94.6 fl (82.0-101.0); MEAN PLATELET VOLUME 10.8 fl (7.4-10.4); MONOCYTE # 1.8 10^3/ul (0.3-0.9); MONOCYTES % 14.8 % (0.0-11.0); NEUTROPHIL # 8.6 10^3/ul (1.6-7.5); NEUTROPHILS % 70.3 % (39.0-77.0); NUCLEATED RED BLOOD CELLS # 0.1 10^3/ul (0.0-0.0); NUCLEATED RED BLOOD CELLS% 0.6 /100WBC (0.0-0.0); PLATELET COUNT 147 10^3/UL (140-415); RED BLOOD COUNT 3.33 10^6/ul (4.20-5.40); RED CELL DISTRIBUTION WIDTH 17.4 % (11.5-14.5)
[2017-10-22] MEDS: SUCRALFATE 1 GM TAB PO ×4 (07:25→21:02)
[2017-10-22 07:27] LABS: POSITIVE DIFF @See below
[2017-10-22] MEDS: LACTULOSE 30ML CUP PO ×2 (07:33→09:50)
[2017-10-22 07:43] LABS: AMMONIA 30 umol/l (9-30)
[2017-10-22 07:54] LABS: ALANINE AMINOTRANSFERASE 64 IU/L (13-69); ALBUMIN 2.3 g/dl (3.3-4.9); ALBUMIN/GLOBULIN RATIO 0.76; ALKALINE PHOSPHATASE 273 IU/L (42-121); ANION GAP 11 (8-16); ASPARTATE AMINO TRANSFERASE 80 IU/L (15-46); BILIRUBIN,INDIRECT 0.5 mg/dl (0-1.1); BILIRUBIN,TOTAL 0.5 mg/dl (0.2-1.3); BLOOD UREA NITROGEN 33 mg/dl (7-20); CALCIUM 9.2 mg/dl (8.4-10.2); CARBON DIOXIDE 33 mmol/L (21-31); CHLORIDE 97 mmol/L (97-110); CREATININE 1.37 mg/dl (0.44-1.00); GLUCOSE 170 mg/dl (70-220); MAGNESIUM 1.5 mg/dl (1.7-2.5); POTASSIUM 4.2 mmol/L (3.5-5.1); SODIUM 137 mmol/L (135-144); TOTAL PROTEIN 5.3 g/dl (6.1-8.1)
[2017-10-22] MEDS: ALBUTEROL/IPRATROPIUM (NEB) 3 ML AMP HHN ×3 (08:51→20:01)
[2017-10-22] MEDS: SILVER SULFADIAZINE 1% 25 GM CR TOP (09:50)
[2017-10-22] MEDS: NYSTATIN 30 GM POWDER BTL TOP ×2 (09:50→21:03)
[2017-10-22] MEDS: INSULIN DETEMIR [LEVEMIR] (100 UNITS/ML) SYG SC ×2 (09:50→21:32)
[2017-10-22] MEDS: predniSONE 5 MG TAB PO (09:55)
[2017-10-22] MEDS: L ACIDOPHIL/B LACTIS/B LONGUM CAPSULE PO ×2 (09:55→21:01)
[2017-10-22] MEDS: POTASSIUM CHLORIDE (SR) 20 MEQ TAB PO ×2 (09:55→21:02)
[2017-10-22] MEDS: NYSTATIN/TRIAMCINOLONE 15 GM CR TOP (09:55)
[2017-10-22] MEDS: RIFAXIMIN 550 MG TAB PO ×2 (09:56→21:02)
[2017-10-22] MEDS: MAGNESIUM OXIDE 400 MG TAB PO ×2 (09:56→21:02)
[2017-10-22] MEDS: FLUTICASONE 0.05% 16 GM NAS SPRAY NASAL ×2 (09:57→21:03)
[2017-10-22] MEDS: BUMETANIDE 1 MG INJ IV (09:58)
[2017-10-22] MEDS: AMLODIPINE 5 MG TAB PO (09:58)
[2017-10-22] MEDS: NPH, HUMAN INSULIN ISOPHANE 3ML VIAL SC (10:25)
[2017-10-22] MEDS: MAGNESIUM SULFATE 2 GM/50 ML 50 ML IVPB (11:19)
[2017-10-22] MEDS: MONTELUKAST 10 MG TAB PO (21:02)
[2017-10-22] MEDS: MIRTAZAPINE 15 MG TAB PO (21:02)
[2017-10-23] MEDS: ACCU-CHEK XX (02:00)
[2017-10-23] MEDS: SUCRALFATE 1 GM TAB PO ×4 (06:26→21:03)
[2017-10-23] MEDS: PANTOPRAZOLE 40 MG INJ IV (06:26)
[2017-10-23 06:40] LABS: ADD MAN DIFF? NO
[2017-10-23 06:46] LABS: WHITE BLOOD COUNT 10.5 10^3/ul (4.8-10.8)
[2017-10-23 06:46] LABS: ABNORMAL IP MESSAGE 1; BASOPHIL # 0.1 10^3/ul (0.0-0.1); BASOPHILS % 1.2 % (0.0-2.0); EOSINOPHILS # 0.2 10^3/ul (0.0-0.5); EOSINOPHILS % 1.8 % (0.0-7.0); HEMATOCRIT 29.7 % (37.0-47.0); HEMOGLOBIN 9.3 g/dl (12.0-16.0); LYMPHOCYTES # 1.5 10^3/ul (0.8-2.9); LYMPHOCYTES % 14.1 % (15.0-51.0); MEAN CORPUSCULAR HGB CONC 31.3 g/dl (32.0-37.0); MEAN CORPUSCULAR VOLUME 95.8 fl (82.0-101.0); MEAN PLATELET VOLUME 10.9 fl (7.4-10.4); MONOCYTE # 1.9 10^3/ul (0.3-0.9); MONOCYTES % 18.2 % (0.0-11.0); NEUTROPHIL # 6.5 10^3/ul (1.6-7.5); NEUTROPHILS % 61.8 % (39.0-77.0); NUCLEATED RED BLOOD CELLS # 0.1 10^3/ul (0.0-0.0); NUCLEATED RED BLOOD CELLS% 1.1 /100WBC (0.0-0.0); PLATELET COUNT 131 10^3/UL (140-415); RED CELL DISTRIBUTION WIDTH 17.5 % (11.5-14.5)
[2017-10-23 06:57] LABS: POSITIVE DIFF @See below
[2017-10-23 07:02] LABS: AMMONIA 23 umol/l (9-30)
[2017-10-23 07:08] LABS: ALANINE AMINOTRANSFERASE 61 IU/L (13-69); ALBUMIN 2.1 g/dl (3.3-4.9); ALBUMIN/GLOBULIN RATIO 0.72; ALKALINE PHOSPHATASE 241 IU/L (42-121); ANION GAP 8 (8-16); ASPARTATE AMINO TRANSFERASE 74 IU/L (15-46); BILIRUBIN,INDIRECT 0.5 mg/dl (0-1.1); BILIRUBIN,TOTAL 0.5 mg/dl (0.2-1.3); BLOOD UREA NITROGEN 32 mg/dl (7-20); CALCIUM 8.9 mg/dl (8.4-10.2); CARBON DIOXIDE 34 mmol/L (21-31); CHLORIDE 100 mmol/L (97-110); CREATININE 1.32 mg/dl (0.44-1.00); GLUCOSE 125 mg/dl (70-220); POTASSIUM 4.1 mmol/L (3.5-5.1); SODIUM 138 mmol/L (135-144)
[2017-10-23] MEDS: INSULIN ASPART [NOVOLOG] 3 ML PEN SC ×7 (07:48→21:12)
[2017-10-23] MEDS: ALBUTEROL/IPRATROPIUM (NEB) 3 ML AMP HHN ×3 (08:00→20:42)
[2017-10-23] MEDS: INSULIN DETEMIR [LEVEMIR] (100 UNITS/ML) SYG SC ×2 (08:01→21:11)
[2017-10-23] MEDS: RIFAXIMIN 550 MG TAB PO ×2 (09:21→21:03)
[2017-10-23] MEDS: LACTULOSE 30ML CUP PO (09:21)
[2017-10-23] MEDS: POTASSIUM CHLORIDE (SR) 20 MEQ TAB PO ×2 (09:21→21:03)
[2017-10-23] MEDS: MAGNESIUM OXIDE 400 MG TAB PO ×2 (09:21→21:18)
[2017-10-23] MEDS: AMLODIPINE 5 MG TAB PO (09:22)
[2017-10-23] MEDS: NYSTATIN 30 GM POWDER BTL TOP ×2 (09:23→21:03)
[2017-10-23] MEDS: BUMETANIDE 1 MG INJ IV (09:24)
[2017-10-23] MEDS: FLUTICASONE 0.05% 16 GM NAS SPRAY NASAL ×2 (09:24→21:05)
[2017-10-23] MEDS: NPH, HUMAN INSULIN ISOPHANE 3ML VIAL SC (09:26)
[2017-10-23] MEDS: predniSONE 5 MG TAB PO (09:29)
[2017-10-23] MEDS: SILVER SULFADIAZINE 1% 25 GM CR TOP (09:31)
[2017-10-23] MEDS: NYSTATIN/TRIAMCINOLONE 15 GM CR TOP (09:31)
[2017-10-23] MEDS: L ACIDOPHIL/B LACTIS/B LONGUM CAPSULE PO ×2 (09:33→21:03)
[2017-10-23] MEDS: ACETAMINOPHEN 325 MG TAB PO ×2 (12:19→22:57)
[2017-10-23] MEDS: EPOETIN 10000 UNITS/ML (NON ESRD/NON ONCOLOGY) SC (17:26)
[2017-10-23] MEDS: MIRTAZAPINE 15 MG TAB PO (21:03)
[2017-10-23] MEDS: MONTELUKAST 10 MG TAB PO (21:03)
[2017-10-24] MEDS: ACCU-CHEK XX (02:00)
[2017-10-24] MEDS: PANTOPRAZOLE 40 MG INJ IV (05:21)
[2017-10-24 06:12] LABS: ADD MAN DIFF? NO
[2017-10-24 06:22] LABS: ABNORMAL IP MESSAGE 1; BASOPHIL # 0.2 10^3/ul (0.0-0.1); BASOPHILS % 1.4 % (0.0-2.0); EOSINOPHILS # 0.3 10^3/ul (0.0-0.5); EOSINOPHILS % 2.5 % (0.0-7.0); HEMATOCRIT 30.8 % (37.0-47.0); HEMOGLOBIN 9.7 g/dl (12.0-16.0); LYMPHOCYTES # 1.7 10^3/ul (0.8-2.9); LYMPHOCYTES % 15.5 % (15.0-51.0); MEAN CORPUSCULAR HEMOGLOBIN 29.6 pg (29.0-33.0); MEAN CORPUSCULAR HGB CONC 31.5 g/dl (32.0-37.0); MEAN CORPUSCULAR VOLUME 93.9 fl (82.0-101.0); MEAN PLATELET VOLUME 11.1 fl (7.4-10.4); MONOCYTE # 1.8 10^3/ul (0.3-0.9); MONOCYTES % 16.1 % (0.0-11.0); NEUTROPHIL # 6.6 10^3/ul (1.6-7.5); NEUTROPHILS % 60.4 % (39.0-77.0); NUCLEATED RED BLOOD CELLS # 0.2 10^3/ul (0.0-0.0); NUCLEATED RED BLOOD CELLS% 1.5 /100WBC (0.0-0.0); PLATELET COUNT 140 10^3/UL (140-415); RED BLOOD COUNT 3.28 10^6/ul (4.20-5.40); RED CELL DISTRIBUTION WIDTH 17.4 % (11.5-14.5)
[2017-10-24 06:22] LABS: WHITE BLOOD COUNT 10.9 10^3/ul (4.8-10.8)
[2017-10-24 06:32] LABS: POSITIVE DIFF @See below
[2017-10-24 06:38] LABS: AMMONIA 28 umol/l (9-30)
[2017-10-24 06:45] LABS: ALANINE AMINOTRANSFERASE 57 IU/L (13-69); ALBUMIN 2.3 g/dl (3.3-4.9); ALBUMIN/GLOBULIN RATIO 0.69; ALKALINE PHOSPHATASE 256 IU/L (42-121); ANION GAP 10 (8-16); ASPARTATE AMINO TRANSFERASE 88 IU/L (15-46); BILIRUBIN,INDIRECT 0.5 mg/dl (0-1.1); BILIRUBIN,TOTAL 0.5 mg/dl (0.2-1.3); BLOOD UREA NITROGEN 32 mg/dl (7-20); CARBON DIOXIDE 34 mmol/L (21-31); CHLORIDE 100 mmol/L (97-110); GLUCOSE 53 mg/dl (70-220); MAGNESIUM 1.8 mg/dl (1.7-2.5); POTASSIUM 4.2 mmol/L (3.5-5.1); SODIUM 140 mmol/L (135-144); TOTAL PROTEIN 5.6 g/dl (6.1-8.1)
[2017-10-24] MEDS: INSULIN ASPART [NOVOLOG] 3 ML PEN SC ×8 (07:46→22:05)
[2017-10-24] MEDS: INSULIN DETEMIR [LEVEMIR] (100 UNITS/ML) SYG SC ×2 (07:58→21:25)
[2017-10-24] MEDS: SUCRALFATE 1 GM TAB PO ×4 (08:27→21:06)
[2017-10-24] MEDS: MAGNESIUM OXIDE 400 MG TAB PO ×2 (08:28→21:06)
[2017-10-24] MEDS: POTASSIUM CHLORIDE (SR) 20 MEQ TAB PO ×2 (08:28→21:17)
[2017-10-24] MEDS: LACTULOSE 30ML CUP PO (08:28)
[2017-10-24] MEDS: BUMETANIDE 1 MG INJ IV (08:28)
[2017-10-24] MEDS: FLUTICASONE 0.05% 16 GM NAS SPRAY NASAL ×2 (08:28→21:19)
[2017-10-24] MEDS: RIFAXIMIN 550 MG TAB PO ×2 (08:29→21:06)
[2017-10-24] MEDS: predniSONE 5 MG TAB PO (08:29)
[2017-10-24] MEDS: AMLODIPINE 5 MG TAB PO (08:29)
[2017-10-24] MEDS: SILVER SULFADIAZINE 1% 25 GM CR TOP (08:30)
[2017-10-24] MEDS: NYSTATIN 30 GM POWDER BTL TOP ×2 (08:30→21:20)
[2017-10-24] MEDS: NYSTATIN/TRIAMCINOLONE 15 GM CR TOP (08:31)
[2017-10-24] MEDS: NPH, HUMAN INSULIN ISOPHANE 3ML VIAL SC (08:33)
[2017-10-24] MEDS: L ACIDOPHIL/B LACTIS/B LONGUM CAPSULE PO ×2 (09:20→21:17)
[2017-10-24] MEDS: ALBUTEROL/IPRATROPIUM (NEB) 3 ML AMP HHN ×3 (09:35→20:18)
[2017-10-24 19:56] LABS: GLUCOSE 447 mg/dl (70-220)
[2017-10-24] MEDS: MIRTAZAPINE 15 MG TAB PO (21:06)
[2017-10-24] MEDS: MONTELUKAST 10 MG TAB PO (21:06)
[2017-10-25] MEDS: ACCU-CHEK XX (02:59)
[2017-10-25] MEDS: PANTOPRAZOLE 40 MG INJ IV (05:41)
[2017-10-25 06:24] LABS: ADD MAN DIFF? NO
[2017-10-25 06:25] LABS: WHITE BLOOD COUNT 12.2 10^3/ul (4.8-10.8)
[2017-10-25 06:25] LABS: ABNORMAL IP MESSAGE 1; BASOPHIL # 0.2 10^3/ul (0.0-0.1); BASOPHILS % 1.3 % (0.0-2.0); EOSINOPHILS # 0.2 10^3/ul (0.0-0.5); HEMATOCRIT 31.1 % (37.0-47.0); HEMOGLOBIN 9.9 g/dl (12.0-16.0); LYMPHOCYTES # 1.6 10^3/ul (0.8-2.9); LYMPHOCYTES % 13.4 % (15.0-51.0); MEAN CORPUSCULAR HEMOGLOBIN 30.3 pg (29.0-33.0); MEAN CORPUSCULAR HGB CONC 31.8 g/dl (32.0-37.0); MEAN CORPUSCULAR VOLUME 95.1 fl (82.0-101.0); MEAN PLATELET VOLUME 10.8 fl (7.4-10.4); MONOCYTES % 16.4 % (0.0-11.0); NEUTROPHIL # 7.6 10^3/ul (1.6-7.5); NEUTROPHILS % 62.5 % (39.0-77.0); NUCLEATED RED BLOOD CELLS # 0.3 10^3/ul (0.0-0.0); NUCLEATED RED BLOOD CELLS% 2.3 /100WBC (0.0-0.0); PLATELET COUNT 160 10^3/UL (140-415); RED BLOOD COUNT 3.27 10^6/ul (4.20-5.40); RED CELL DISTRIBUTION WIDTH 17.6 % (11.5-14.5)
[2017-10-25 06:31] LABS: POSITIVE DIFF @See below
[2017-10-25 07:02] LABS: ALANINE AMINOTRANSFERASE 62 IU/L (13-69); ALBUMIN 2.4 g/dl (3.3-4.9); ALBUMIN/GLOBULIN RATIO 0.82; ALKALINE PHOSPHATASE 256 IU/L (42-121); ANION GAP 11 (8-16); ASPARTATE AMINO TRANSFERASE 86 IU/L (15-46); BILIRUBIN,INDIRECT 0.4 mg/dl (0-1.1); BILIRUBIN,TOTAL 0.4 mg/dl (0.2-1.3); BLOOD UREA NITROGEN 37 mg/dl (7-20); CALCIUM 9.3 mg/dl (8.4-10.2); CARBON DIOXIDE 30 mmol/L (21-31); CHLORIDE 98 mmol/L (97-110); CREATININE 1.33 mg/dl (0.44-1.00); GLUCOSE 166 mg/dl (70-220); MAGNESIUM 1.7 mg/dl (1.7-2.5); POTASSIUM 4.2 mmol/L (3.5-5.1); SODIUM 135 mmol/L (135-144); TOTAL PROTEIN 5.3 g/dl (6.1-8.1)
[2017-10-25 07:06] LABS: AMMONIA 37 umol/l (9-30)
[2017-10-25] MEDS: INSULIN ASPART [NOVOLOG] 3 ML PEN SC ×9 (07:50→21:00)
[2017-10-25] MEDS: INSULIN DETEMIR [LEVEMIR] (100 UNITS/ML) SYG SC ×2 (07:51→20:57)
[2017-10-25] MEDS: ALBUTEROL/IPRATROPIUM (NEB) 3 ML AMP HHN ×3 (08:17→21:12)
[2017-10-25] MEDS: SUCRALFATE 1 GM TAB PO ×4 (08:32→20:41)
[2017-10-25] MEDS: AMLODIPINE 5 MG TAB PO (08:33)
[2017-10-25] MEDS: RIFAXIMIN 550 MG TAB PO ×2 (08:33→20:39)
[2017-10-25] MEDS: BUMETANIDE 1 MG INJ IV (08:33)
[2017-10-25] MEDS: MAGNESIUM OXIDE 400 MG TAB PO ×2 (08:33→20:39)
[2017-10-25] MEDS: predniSONE 5 MG TAB PO (08:33)
[2017-10-25] MEDS: POTASSIUM CHLORIDE (SR) 20 MEQ TAB PO ×2 (08:34→20:39)
[2017-10-25] MEDS: SILVER SULFADIAZINE 1% 25 GM CR TOP (08:35)
[2017-10-25] MEDS: NYSTATIN 30 GM POWDER BTL TOP ×2 (08:35→20:52)
[2017-10-25] MEDS: FLUTICASONE 0.05% 16 GM NAS SPRAY NASAL ×2 (08:35→20:42)
[2017-10-25] MEDS: NYSTATIN/TRIAMCINOLONE 15 GM CR TOP (08:36)
[2017-10-25] MEDS: L ACIDOPHIL/B LACTIS/B LONGUM CAPSULE PO ×2 (08:40→20:41)
[2017-10-25] MEDS: LACTULOSE 30ML CUP PO ×2 (08:40→20:38)
[2017-10-25] MEDS: MAGNESIUM SULFATE 2 GM/50 ML 50 ML IVPB (08:40)
[2017-10-25] MEDS: NPH, HUMAN INSULIN ISOPHANE 3ML VIAL SC (09:53)
[2017-10-25] MEDS: EPOETIN 10000 UNITS/ML (NON ESRD/NON ONCOLOGY) SC (17:03)
[2017-10-25 19:59] LABS: GLUCOSE 543 mg/dl (70-220)
[2017-10-25] MEDS: MIRTAZAPINE 15 MG TAB PO (20:38)
[2017-10-25] MEDS: MONTELUKAST 10 MG TAB PO (20:39)
[2017-10-26] MEDS: ALTEPLASE (CATHFLO) 2 MG INJ CATHETER (00:49)
[2017-10-26] MEDS: ACCU-CHEK XX (01:52)
[2017-10-26] MEDS: ACETAMINOPHEN 325 MG TAB PO ×2 (04:01→10:26)
[2017-10-26] MEDS: PANTOPRAZOLE 40 MG INJ IV (06:08)
[2017-10-26 06:37] LABS: ADD MAN DIFF? NO
[2017-10-26 06:45] LABS: ABNORMAL IP MESSAGE 1; BASOPHIL # 0.1 10^3/ul (0.0-0.1); BASOPHILS % 1.1 % (0.0-2.0); EOSINOPHILS # 0.3 10^3/ul (0.0-0.5); EOSINOPHILS % 2.2 % (0.0-7.0); HEMATOCRIT 29.3 % (37.0-47.0); HEMOGLOBIN 9.2 g/dl (12.0-16.0); LYMPHOCYTES # 1.6 10^3/ul (0.8-2.9); LYMPHOCYTES % 12.5 % (15.0-51.0); MEAN CORPUSCULAR HEMOGLOBIN 29.5 pg (29.0-33.0); MEAN CORPUSCULAR HGB CONC 31.4 g/dl (32.0-37.0); MEAN CORPUSCULAR VOLUME 93.9 fl (82.0-101.0); MEAN PLATELET VOLUME 10.8 fl (7.4-10.4); MONOCYTE # 2.1 10^3/ul (0.3-0.9); MONOCYTES % 16.6 % (0.0-11.0); NEUTROPHILS % 62.7 % (39.0-77.0); NUCLEATED RED BLOOD CELLS # 0.2 10^3/ul (0.0-0.0); NUCLEATED RED BLOOD CELLS% 1.7 /100WBC (0.0-0.0); PLATELET COUNT 142 10^3/UL (140-415); RED BLOOD COUNT 3.12 10^6/ul (4.20-5.40)
[2017-10-26 06:45] LABS: WHITE BLOOD COUNT 12.8 10^3/ul (4.8-10.8)
[2017-10-26 07:00] LABS: AMMONIA 24 umol/l (9-30)
[2017-10-26 07:04] LABS: ALANINE AMINOTRANSFERASE 57 IU/L (13-69); ALBUMIN 2.3 g/dl (3.3-4.9); ALBUMIN/GLOBULIN RATIO 0.79; ALKALINE PHOSPHATASE 234 IU/L (42-121); ANION GAP 12 (8-16); ASPARTATE AMINO TRANSFERASE 88 IU/L (15-46); BILIRUBIN,INDIRECT 0.4 mg/dl (0-1.1); BILIRUBIN,TOTAL 0.4 mg/dl (0.2-1.3); BLOOD UREA NITROGEN 42 mg/dl (7-20); CALCIUM 9.2 mg/dl (8.4-10.2); CARBON DIOXIDE 30 mmol/L (21-31); CHLORIDE 99 mmol/L (97-110); GLUCOSE 258 mg/dl (70-220); MAGNESIUM 2.1 mg/dl (1.7-2.5); POTASSIUM 4.4 mmol/L (3.5-5.1); SODIUM 137 mmol/L (135-144); TOTAL PROTEIN 5.2 g/dl (6.1-8.1)
[2017-10-26 07:28] LABS: POSITIVE DIFF @See below
[2017-10-26] MEDS: ALBUTEROL/IPRATROPIUM (NEB) 3 ML AMP HHN ×3 (08:01→20:07)
[2017-10-26] MEDS: RIFAXIMIN 550 MG TAB PO ×2 (08:14→21:44)
[2017-10-26] MEDS: AMLODIPINE 5 MG TAB PO (08:15)
[2017-10-26] MEDS: SUCRALFATE 1 GM TAB PO ×4 (08:15→21:44)
[2017-10-26] MEDS: L ACIDOPHIL/B LACTIS/B LONGUM CAPSULE PO ×2 (08:15→21:44)
[2017-10-26] MEDS: MAGNESIUM OXIDE 400 MG TAB PO ×2 (08:16→21:45)
[2017-10-26] MEDS: BUMETANIDE 1 MG INJ IV (08:16)
[2017-10-26] MEDS: POTASSIUM CHLORIDE (SR) 20 MEQ TAB PO ×2 (08:16→21:44)
[2017-10-26] MEDS: LACTULOSE 30ML CUP PO ×2 (08:17→21:46)
[2017-10-26] MEDS: FLUTICASONE 0.05% 16 GM NAS SPRAY NASAL ×2 (08:17→21:45)
[2017-10-26] MEDS: predniSONE 5 MG TAB PO (08:39)
[2017-10-26] MEDS: NPH, HUMAN INSULIN ISOPHANE 3ML VIAL SC (08:41)
[2017-10-26] MEDS: INSULIN DETEMIR [LEVEMIR] (100 UNITS/ML) SYG SC ×2 (08:42→22:00)
[2017-10-26] MEDS: INSULIN ASPART [NOVOLOG] 3 ML PEN SC ×7 (08:42→21:59)
[2017-10-26] MEDS: NYSTATIN/TRIAMCINOLONE 15 GM CR TOP (08:43)
[2017-10-26] MEDS: SILVER SULFADIAZINE 1% 25 GM CR TOP (08:43)
[2017-10-26] MEDS: NYSTATIN 30 GM POWDER BTL TOP ×2 (08:43→21:00)
[2017-10-26] MEDS: MIRTAZAPINE 15 MG TAB PO (21:44)
[2017-10-26] MEDS: MONTELUKAST 10 MG TAB PO (21:45)
[2017-10-27] MEDS: INSULIN ASPART [NOVOLOG] 3 ML PEN SC ×8 (00:11→21:35)
[2017-10-27] MEDS: ACCU-CHEK XX (02:33)
[2017-10-27] MEDS: PANTOPRAZOLE 40 MG INJ IV (05:32)
[2017-10-27 06:23] LABS: WHITE BLOOD COUNT 12.4 10^3/ul (4.8-10.8)
[2017-10-27 06:23] LABS: ABNORMAL IP MESSAGE 1; HEMOGLOBIN 9.2 g/dl (12.0-16.0); MEAN CORPUSCULAR HEMOGLOBIN 30.4 pg (29.0-33.0); MEAN CORPUSCULAR HGB CONC 31.7 g/dl (32.0-37.0); MEAN CORPUSCULAR VOLUME 95.7 fl (82.0-101.0); MEAN PLATELET VOLUME 10.8 fl (7.4-10.4); NUCLEATED RED BLOOD CELLS% 2.2 /100WBC (0.0-0.0); PLATELET COUNT 138 10^3/UL (140-415); RED BLOOD COUNT 3.03 10^6/ul (4.20-5.40)
[2017-10-27 06:28] LABS: ADD MAN DIFF? YES; POSITIVE DIFF @See below
[2017-10-27 06:43] LABS: ALANINE AMINOTRANSFERASE 60 IU/L (13-69); ALBUMIN 2.4 g/dl (3.3-4.9); ALBUMIN/GLOBULIN RATIO 0.82; ALKALINE PHOSPHATASE 227 IU/L (42-121); ANION GAP 10 (8-16); ASPARTATE AMINO TRANSFERASE 105 IU/L (15-46); BILIRUBIN,INDIRECT 0.3 mg/dl (0-1.1); BILIRUBIN,TOTAL 0.3 mg/dl (0.2-1.3); BLOOD UREA NITROGEN 42 mg/dl (7-20); CALCIUM 9.1 mg/dl (8.4-10.2); CARBON DIOXIDE 29 mmol/L (21-31); CHLORIDE 103 mmol/L (97-110); CREATININE 1.34 mg/dl (0.44-1.00); GLUCOSE 127 mg/dl (70-220); POTASSIUM 4.1 mmol/L (3.5-5.1); SODIUM 138 mmol/L (135-144); TOTAL PROTEIN 5.3 g/dl (6.1-8.1)
[2017-10-27 06:46] LABS: AMMONIA 33 umol/l (9-30)
[2017-10-27 07:37] LABS: ANISOCYTOSIS 2+ (0-0); BAND NEUTROPHILS #M 0.2 10^3/ul (0.0-0.6); BAND NEUTROPHILS % (M) 2 % (0-4); BASOPHIL #M 0.1 10^3/ul (0.0-0.0); BASOPHILS % (M) 1 % (0-2); EOSINOPHILS % (M) 7 % (0-7); ERYTHROBLAST% (NRBC) (M) 4 % (0-0); LYMPHOCYTES #M 1.1 10^3/ul (0.8-2.9); LYMPHOCYTES % (M) 9 % (15-51); METAMYELOCYTES #M 0.2 10^3/ul (0.0-0.0); METAMYELOCYTES %M 2 % (0-0); MONOCYTE #M 1.3 10^3/ul (0.3-0.9); MONOCYTES % (M) 11 % (0-11); MYELOCYTES #M 0.1 10^3/ul (0.0-0.0); MYELOCYTES % (M) 1 % (0-0); PLATELET ESTIMATE DECREASED; POLYCHROMASIA 3+ (0-0); SEG NEUT #M 8.3 10^3/ul (1.6-7.5); SEGMENTED NEUTROPHILS (M) % 67 % (39-77); SMUDGE%M 12 % (0-0)
[2017-10-27] MEDS: LACTULOSE 30ML CUP PO ×2 (08:19→21:30)
[2017-10-27] MEDS: FLUTICASONE 0.05% 16 GM NAS SPRAY NASAL ×2 (08:20→21:30)
[2017-10-27] MEDS: BUMETANIDE 1 MG INJ IV (08:20)
[2017-10-27] MEDS: L ACIDOPHIL/B LACTIS/B LONGUM CAPSULE PO ×2 (08:21→21:30)
[2017-10-27] MEDS: RIFAXIMIN 550 MG TAB PO ×2 (08:21→21:29)
[2017-10-27] MEDS: AMLODIPINE 5 MG TAB PO (08:21)
[2017-10-27] MEDS: MAGNESIUM OXIDE 400 MG TAB PO ×2 (08:22→21:30)
[2017-10-27] MEDS: POTASSIUM CHLORIDE (SR) 20 MEQ TAB PO ×2 (08:23→21:29)
[2017-10-27] MEDS: SUCRALFATE 1 GM TAB PO ×4 (08:23→21:30)
[2017-10-27] MEDS: predniSONE 5 MG TAB PO (08:36)
[2017-10-27] MEDS: ALBUTEROL/IPRATROPIUM (NEB) 3 ML AMP HHN ×3 (08:51→20:05)
[2017-10-27] MEDS: NPH, HUMAN INSULIN ISOPHANE 3ML VIAL SC (09:00)
[2017-10-27] MEDS: SILVER SULFADIAZINE 1% 25 GM CR TOP (09:01)
[2017-10-27] MEDS: NYSTATIN/TRIAMCINOLONE 15 GM CR TOP (09:01)
[2017-10-27] MEDS: NYSTATIN 30 GM POWDER BTL TOP ×2 (09:01→21:00)
[2017-10-27] MEDS: INSULIN DETEMIR [LEVEMIR] (100 UNITS/ML) SYG SC ×2 (09:01→21:47)
[2017-10-27] MEDS: MONTELUKAST 10 MG TAB PO (21:29)
[2017-10-27] MEDS: MIRTAZAPINE 15 MG TAB PO (21:30)
[2017-10-27] MEDS: ACETAMINOPHEN 325 MG TAB PO (21:59)
[2017-10-28] MEDS: ACCU-CHEK XX (02:14)
[2017-10-28 05:46] LABS: ADD MAN DIFF? NO
[2017-10-28 05:51] LABS: ABNORMAL IP MESSAGE 1; BASOPHIL # 0.2 10^3/ul (0.0-0.1); BASOPHILS % 1.2 % (0.0-2.0); EOSINOPHILS # 0.4 10^3/ul (0.0-0.5); EOSINOPHILS % 2.8 % (0.0-7.0); HEMATOCRIT 29.9 % (37.0-47.0); HEMOGLOBIN 9.3 g/dl (12.0-16.0); LYMPHOCYTES # 1.6 10^3/ul (0.8-2.9); LYMPHOCYTES % 11.6 % (15.0-51.0); MEAN CORPUSCULAR HGB CONC 31.1 g/dl (32.0-37.0); MEAN CORPUSCULAR VOLUME 96.5 fl (82.0-101.0); MEAN PLATELET VOLUME 10.3 fl (7.4-10.4); MONOCYTE # 1.9 10^3/ul (0.3-0.9); MONOCYTES % 13.8 % (0.0-11.0); NEUTROPHIL # 8.9 10^3/ul (1.6-7.5); NEUTROPHILS % 65.8 % (39.0-77.0); NUCLEATED RED BLOOD CELLS # 0.2 10^3/ul (0.0-0.0); NUCLEATED RED BLOOD CELLS% 1.7 /100WBC (0.0-0.0); PLATELET COUNT 150 10^3/UL (140-415); RED CELL DISTRIBUTION WIDTH 18.3 % (11.5-14.5)
[2017-10-28 05:51] LABS: WHITE BLOOD COUNT 13.6 10^3/ul (4.8-10.8)
[2017-10-28 05:56] LABS: POSITIVE DIFF @See below
[2017-10-28] MEDS: PANTOPRAZOLE 40 MG INJ IV (06:32)
[2017-10-28 06:33] LABS: ANION GAP 9 (8-16); BLOOD UREA NITROGEN 42 mg/dl (7-20); CALCIUM 9.2 mg/dl (8.4-10.2); CARBON DIOXIDE 29 mmol/L (21-31); CHLORIDE 103 mmol/L (97-110); CREATININE 1.34 mg/dl (0.44-1.00); GLUCOSE 179 mg/dl (70-220); POTASSIUM 4.4 mmol/L (3.5-5.1); SODIUM 137 mmol/L (135-144)
[2017-10-28] MEDS: ALBUTEROL/IPRATROPIUM (NEB) 3 ML AMP HHN ×4 (08:20→20:39)
[2017-10-28] MEDS: L ACIDOPHIL/B LACTIS/B LONGUM CAPSULE PO ×2 (08:24→21:06)
[2017-10-28] MEDS: SUCRALFATE 1 GM TAB PO ×4 (08:24→21:07)
[2017-10-28] MEDS: RIFAXIMIN 550 MG TAB PO ×2 (08:24→21:07)
[2017-10-28] MEDS: AMLODIPINE 5 MG TAB PO (08:24)
[2017-10-28] MEDS: POTASSIUM CHLORIDE (SR) 20 MEQ TAB PO ×2 (08:25→21:07)
[2017-10-28] MEDS: FLUTICASONE 0.05% 16 GM NAS SPRAY NASAL ×2 (08:25→21:08)
[2017-10-28] MEDS: MAGNESIUM OXIDE 400 MG TAB PO ×2 (08:25→21:07)
[2017-10-28] MEDS: LACTULOSE 30ML CUP PO ×2 (08:25→21:08)
[2017-10-28] MEDS: predniSONE 5 MG TAB PO (08:25)
[2017-10-28] MEDS: NYSTATIN/TRIAMCINOLONE 15 GM CR TOP (08:26)
[2017-10-28] MEDS: BUMETANIDE 1 MG INJ IV (08:26)
[2017-10-28] MEDS: NYSTATIN 30 GM POWDER BTL TOP ×2 (08:26→21:12)
[2017-10-28] MEDS: NPH, HUMAN INSULIN ISOPHANE 3ML VIAL SC (08:40)
[2017-10-28] MEDS: INSULIN ASPART [NOVOLOG] 3 ML PEN SC ×7 (08:40→21:10)
[2017-10-28] MEDS: SILVER SULFADIAZINE 1% 25 GM CR TOP (08:43)
[2017-10-28] MEDS: INSULIN DETEMIR [LEVEMIR] (100 UNITS/ML) SYG SC ×2 (09:43→21:11)
[2017-10-28] MEDS: HYDROCODONE/APAP (10/325) TAB PO ×2 (12:41→23:23)
[2017-10-28] MEDS: EPOETIN 10000 UNITS/ML (NON ESRD/NON ONCOLOGY) SC (17:15)
[2017-10-28] MEDS: MIRTAZAPINE 15 MG TAB PO (21:07)
[2017-10-28] MEDS: MONTELUKAST 10 MG TAB PO (21:07)
[2017-10-29] MEDS: ACCU-CHEK XX (02:00)
[2017-10-29] MEDS: HYDROCODONE/APAP (10/325) TAB PO ×3 (03:56→23:15)
[2017-10-29] MEDS: PANTOPRAZOLE 40 MG INJ IV (05:10)
[2017-10-29] MEDS: ALBUTEROL/IPRATROPIUM (NEB) 3 ML AMP HHN ×4 (05:33→23:23)
[2017-10-29 06:15] LABS: ADD MAN DIFF? NO
[2017-10-29 06:27] LABS: ABNORMAL IP MESSAGE 1; BASOPHIL # 0.2 10^3/ul (0.0-0.1); BASOPHILS % 1.1 % (0.0-2.0); EOSINOPHILS # 0.4 10^3/ul (0.0-0.5); HEMATOCRIT 30.2 % (37.0-47.0); HEMOGLOBIN 9.5 g/dl (12.0-16.0); LYMPHOCYTES # 1.6 10^3/ul (0.8-2.9); MEAN CORPUSCULAR HEMOGLOBIN 30.6 pg (29.0-33.0); MEAN CORPUSCULAR HGB CONC 31.5 g/dl (32.0-37.0); MEAN CORPUSCULAR VOLUME 97.4 fl (82.0-101.0); MEAN PLATELET VOLUME 10.4 fl (7.4-10.4); MONOCYTE # 1.7 10^3/ul (0.3-0.9); MONOCYTES % 12.2 % (0.0-11.0); NEUTROPHIL # 9.7 10^3/ul (1.6-7.5); NEUTROPHILS % 68.4 % (39.0-77.0); NUCLEATED RED BLOOD CELLS # 0.2 10^3/ul (0.0-0.0); NUCLEATED RED BLOOD CELLS% 1.6 /100WBC (0.0-0.0); PLATELET COUNT 158 10^3/UL (140-415); RED CELL DISTRIBUTION WIDTH 18.1 % (11.5-14.5)
[2017-10-29 06:27] LABS: WHITE BLOOD COUNT 14.2 10^3/ul (4.8-10.8)
[2017-10-29 06:34] LABS: POSITIVE DIFF @See below
[2017-10-29 06:52] LABS: AMMONIA 75 umol/l (9-30)
[2017-10-29 07:05] LABS: ALANINE AMINOTRANSFERASE 58 IU/L (13-69); ALBUMIN 2.6 g/dl (3.3-4.9); ALBUMIN/GLOBULIN RATIO 0.74; ALKALINE PHOSPHATASE 245 IU/L (42-121); ANION GAP 12 (8-16); ASPARTATE AMINO TRANSFERASE 102 IU/L (15-46); BILIRUBIN,INDIRECT 0.4 mg/dl (0-1.1); BILIRUBIN,TOTAL 0.4 mg/dl (0.2-1.3); BLOOD UREA NITROGEN 45 mg/dl (7-20); CALCIUM 9.2 mg/dl (8.4-10.2); CARBON DIOXIDE 29 mmol/L (21-31); CHLORIDE 100 mmol/L (97-110); CREATININE 1.33 mg/dl (0.44-1.00); GLUCOSE 216 mg/dl (70-220); MAGNESIUM 1.9 mg/dl (1.7-2.5); SODIUM 136 mmol/L (135-144); TOTAL PROTEIN 6.1 g/dl (6.1-8.1)
[2017-10-29] MEDS: BUMETANIDE 1 MG INJ IV (08:38)
[2017-10-29] MEDS: L ACIDOPHIL/B LACTIS/B LONGUM CAPSULE PO ×2 (08:38→20:26)
[2017-10-29] MEDS: AMLODIPINE 5 MG TAB PO (08:38)
[2017-10-29] MEDS: FLUTICASONE 0.05% 16 GM NAS SPRAY NASAL ×2 (08:38→20:35)
[2017-10-29] MEDS: POTASSIUM CHLORIDE (SR) 20 MEQ TAB PO ×2 (08:39→20:26)
[2017-10-29] MEDS: predniSONE 5 MG TAB PO (08:39)
[2017-10-29] MEDS: MAGNESIUM OXIDE 400 MG TAB PO ×2 (08:39→20:27)
[2017-10-29] MEDS: RIFAXIMIN 550 MG TAB PO ×2 (08:39→20:26)
[2017-10-29] MEDS: LACTULOSE 30ML CUP GTB (08:40)
[2017-10-29] MEDS: LACTULOSE 30ML CUP PO ×2 (08:40→20:26)
[2017-10-29] MEDS: SILVER SULFADIAZINE 1% 25 GM CR TOP (08:41)
[2017-10-29] MEDS: NYSTATIN 30 GM POWDER BTL TOP ×2 (08:41→23:14)
[2017-10-29] MEDS: NYSTATIN/TRIAMCINOLONE 15 GM CR TOP (08:41)
[2017-10-29] MEDS: INSULIN ASPART [NOVOLOG] 3 ML PEN SC ×7 (08:48→20:16)
[2017-10-29] MEDS: SUCRALFATE 1 GM TAB PO ×4 (09:11→20:27)
[2017-10-29] MEDS: INSULIN DETEMIR [LEVEMIR] (100 UNITS/ML) SYG SC ×2 (09:18→20:23)
[2017-10-29] MEDS: MIRTAZAPINE 15 MG TAB PO (20:26)
[2017-10-29] MEDS: MONTELUKAST 10 MG TAB PO (20:27)
[2017-10-30] MEDS: ACCU-CHEK XX (02:00)
[2017-10-30] MEDS: ALBUTEROL/IPRATROPIUM (NEB) 3 ML AMP HHN ×3 (02:05→20:36)
[2017-10-30 06:15] LABS: ADD MAN DIFF? NO
[2017-10-30 06:25] LABS: ABNORMAL IP MESSAGE 1; BASOPHIL # 0.1 10^3/ul (0.0-0.1); BASOPHILS % 0.5 % (0.0-2.0); EOSINOPHILS # 0.2 10^3/ul (0.0-0.5); EOSINOPHILS % 0.9 % (0.0-7.0); HEMATOCRIT 28.2 % (37.0-47.0); LYMPHOCYTES % 5.1 % (15.0-51.0); MEAN CORPUSCULAR HEMOGLOBIN 30.9 pg (29.0-33.0); MEAN CORPUSCULAR HGB CONC 31.9 g/dl (32.0-37.0); MEAN CORPUSCULAR VOLUME 96.9 fl (82.0-101.0); MEAN PLATELET VOLUME 10.9 fl (7.4-10.4); MONOCYTE # 1.6 10^3/ul (0.3-0.9); MONOCYTES % 7.9 % (0.0-11.0); NEUTROPHIL # 16.9 10^3/ul (1.6-7.5); NEUTROPHILS % 84.6 % (39.0-77.0); NUCLEATED RED BLOOD CELLS # 0.3 10^3/ul (0.0-0.0); NUCLEATED RED BLOOD CELLS% 1.3 /100WBC (0.0-0.0); PLATELET COUNT 132 10^3/UL (140-415); RED BLOOD COUNT 2.91 10^6/ul (4.20-5.40); RED CELL DISTRIBUTION WIDTH 18.3 % (11.5-14.5)
[2017-10-30 06:32] LABS: POSITIVE DIFF @See below
[2017-10-30] MEDS: PANTOPRAZOLE 40 MG INJ IV (06:39)
[2017-10-30] MEDS: SUCRALFATE 1 GM TAB PO ×4 (06:39→20:28)
[2017-10-30 06:45] LABS: ALANINE AMINOTRANSFERASE 54 IU/L (13-69); ALBUMIN 2.4 g/dl (3.3-4.9); ALBUMIN/GLOBULIN RATIO 0.82; ALKALINE PHOSPHATASE 242 IU/L (42-121); ANION GAP 11 (8-16); ASPARTATE AMINO TRANSFERASE 89 IU/L (15-46); BILIRUBIN,INDIRECT 0.5 mg/dl (0-1.1); BILIRUBIN,TOTAL 0.5 mg/dl (0.2-1.3); BLOOD UREA NITROGEN 53 mg/dl (7-20); CARBON DIOXIDE 28 mmol/L (21-31); CHLORIDE 102 mmol/L (97-110); CREATININE 1.55 mg/dl (0.44-1.00); GLUCOSE 258 mg/dl (70-220); POTASSIUM 5.8 mmol/L (3.5-5.1); SODIUM 135 mmol/L (135-144); TOTAL PROTEIN 5.3 g/dl (6.1-8.1)
[2017-10-30 06:50] LABS: AMMONIA 60 umol/l (9-30)
[2017-10-30] MEDS: L ACIDOPHIL/B LACTIS/B LONGUM CAPSULE PO ×2 (08:13→20:27)
[2017-10-30] MEDS: LACTULOSE 30ML CUP PO ×2 (08:13→20:29)
[2017-10-30] MEDS: RIFAXIMIN 550 MG TAB PO ×2 (08:13→20:28)
[2017-10-30] MEDS: MAGNESIUM OXIDE 400 MG TAB PO ×2 (08:14→20:28)
[2017-10-30] MEDS: AMLODIPINE 5 MG TAB PO (08:14)
[2017-10-30] MEDS: BUMETANIDE 1 MG INJ IV (08:14)
[2017-10-30] MEDS: predniSONE 5 MG TAB PO (08:14)
[2017-10-30] MEDS: FLUTICASONE 0.05% 16 GM NAS SPRAY NASAL ×2 (08:15→20:29)
[2017-10-30] MEDS: NYSTATIN 30 GM POWDER BTL TOP (08:17)
[2017-10-30] MEDS: INSULIN ASPART [NOVOLOG] 3 ML PEN SC ×7 (08:35→20:33)
[2017-10-30] MEDS: INSULIN DETEMIR [LEVEMIR] (100 UNITS/ML) SYG SC ×2 (08:36→20:34)
[2017-10-30] MEDS: NA POLYST SULFON 15 GM/60 ML BTL PO ×2 (08:51→11:31)
[2017-10-30] MEDS: SILVER SULFADIAZINE 1% 25 GM CR TOP (08:54)
[2017-10-30] MEDS: NYSTATIN/TRIAMCINOLONE 15 GM CR TOP (08:54)
[2017-10-30] MEDS: EPOETIN 10000 UNITS/ML (NON ESRD/NON ONCOLOGY) SC (17:09)
[2017-10-30] MEDS: MONTELUKAST 10 MG TAB PO (20:27)
[2017-10-30] MEDS: MIRTAZAPINE 15 MG TAB PO (20:27)
[2017-10-31] MEDS: NYSTATIN 30 GM POWDER BTL TOP ×3 (00:56→21:00)
[2017-10-31] MEDS: ACCU-CHEK XX (00:57)
[2017-10-31] MEDS: hydrALAzine 20 MG INJ IV (00:58)
[2017-10-31] MEDS: ACETAMINOPHEN 325 MG TAB PO (04:15)
[2017-10-31] MEDS: PANTOPRAZOLE 40 MG INJ IV (05:54)
[2017-10-31] MEDS: SUCRALFATE 1 GM TAB PO ×4 (05:54→22:21)
[2017-10-31 06:20] LABS: ADD MAN DIFF? NO
[2017-10-31 06:26] LABS: BASOPHIL # 0.1 10^3/ul (0.0-0.1); BASOPHILS % 0.7 % (0.0-2.0); EOSINOPHILS # 0.4 10^3/ul (0.0-0.5); EOSINOPHILS % 2.7 % (0.0-7.0); HEMOGLOBIN 8.9 g/dl (12.0-16.0); LYMPHOCYTES # 1.3 10^3/ul (0.8-2.9); LYMPHOCYTES % 8.4 % (15.0-51.0); MEAN CORPUSCULAR HEMOGLOBIN 30.1 pg (29.0-33.0); MEAN CORPUSCULAR HGB CONC 31.8 g/dl (32.0-37.0); MEAN CORPUSCULAR VOLUME 94.6 fl (82.0-101.0); MEAN PLATELET VOLUME 10.7 fl (7.4-10.4); MONOCYTE # 1.4 10^3/ul (0.3-0.9); MONOCYTES % 8.6 % (0.0-11.0); NEUTROPHIL # 12.4 10^3/ul (1.6-7.5); NEUTROPHILS % 77.4 % (39.0-77.0); NUCLEATED RED BLOOD CELLS # 0.2 10^3/ul (0.0-0.0); NUCLEATED RED BLOOD CELLS% 1.4 /100WBC (0.0-0.0); PLATELET COUNT 141 10^3/UL (140-415); RED BLOOD COUNT 2.96 10^6/ul (4.20-5.40); RED CELL DISTRIBUTION WIDTH 18.8 % (11.5-14.5)
[2017-10-31 06:44] LABS: ALANINE AMINOTRANSFERASE 58 IU/L (13-69); ALBUMIN 2.3 g/dl (3.3-4.9); ALBUMIN/GLOBULIN RATIO 0.71; ALKALINE PHOSPHATASE 267 IU/L (42-121); ANION GAP 15 (8-16); ASPARTATE AMINO TRANSFERASE 82 IU/L (15-46); BILIRUBIN,INDIRECT 0.4 mg/dl (0-1.1); BILIRUBIN,TOTAL 0.4 mg/dl (0.2-1.3); BLOOD UREA NITROGEN 55 mg/dl (7-20); CALCIUM 9.1 mg/dl (8.4-10.2); CARBON DIOXIDE 29 mmol/L (21-31); CHLORIDE 101 mmol/L (97-110); GLUCOSE 147 mg/dl (70-220); POTASSIUM 4.6 mmol/L (3.5-5.1); SODIUM 140 mmol/L (135-144); TOTAL PROTEIN 5.5 g/dl (6.1-8.1)
[2017-10-31 06:57] LABS: AMMONIA 82 umol/l (9-30)
[2017-10-31] MEDS: INSULIN ASPART [NOVOLOG] 3 ML PEN SC ×7 (07:29→22:28)
[2017-10-31] MEDS: INSULIN DETEMIR [LEVEMIR] (100 UNITS/ML) SYG SC ×2 (07:36→22:25)
[2017-10-31] MEDS: ALBUTEROL/IPRATROPIUM (NEB) 3 ML AMP HHN ×3 (08:05→19:53)
[2017-10-31] MEDS: LACTULOSE 30ML CUP PO ×2 (08:36→21:00)
[2017-10-31] MEDS: FLUTICASONE 0.05% 16 GM NAS SPRAY NASAL ×2 (08:36→21:00)
[2017-10-31] MEDS: predniSONE 5 MG TAB PO (08:36)
[2017-10-31] MEDS: MAGNESIUM OXIDE 400 MG TAB PO ×2 (08:36→22:21)
[2017-10-31] MEDS: L ACIDOPHIL/B LACTIS/B LONGUM CAPSULE PO ×2 (08:36→22:21)
[2017-10-31] MEDS: AMLODIPINE 5 MG TAB PO (08:37)
[2017-10-31] MEDS: RIFAXIMIN 550 MG TAB PO ×2 (08:37→22:21)
[2017-10-31] MEDS: NYSTATIN/TRIAMCINOLONE 15 GM CR TOP (08:38)
[2017-10-31] MEDS: SILVER SULFADIAZINE 1% 25 GM CR TOP (08:38)
[2017-10-31] MEDS: SOD CHLORIDE 0.9% 500 ML IV (08:40)
[2017-10-31] MEDS: BUMETANIDE 1 MG TAB PO (10:28)
[2017-10-31] MEDS: MONTELUKAST 10 MG TAB PO (21:00)
[2017-10-31] MEDS: MIRTAZAPINE 15 MG TAB PO (22:21)
[2017-11-01] MEDS: ACCU-CHEK XX (02:00)
[2017-11-01 06:00] LABS: ADD MAN DIFF? NO
[2017-11-01 06:05] LABS: BASOPHIL # 0.1 10^3/ul (0.0-0.1); BASOPHILS % 0.9 % (0.0-2.0); EOSINOPHILS # 0.5 10^3/ul (0.0-0.5); EOSINOPHILS % 4.1 % (0.0-7.0); HEMOGLOBIN 9.2 g/dl (12.0-16.0); LYMPHOCYTES # 1.5 10^3/ul (0.8-2.9); LYMPHOCYTES % 10.9 % (15.0-51.0); MEAN CORPUSCULAR HEMOGLOBIN 30.3 pg (29.0-33.0); MEAN CORPUSCULAR HGB CONC 31.7 g/dl (32.0-37.0); MEAN CORPUSCULAR VOLUME 95.4 fl (82.0-101.0); MEAN PLATELET VOLUME 10.8 fl (7.4-10.4); MONOCYTE # 1.4 10^3/ul (0.3-0.9); MONOCYTES % 10.6 % (0.0-11.0); NEUTROPHIL # 9.4 10^3/ul (1.6-7.5); NEUTROPHILS % 70.6 % (39.0-77.0); NUCLEATED RED BLOOD CELLS # 0.2 10^3/ul (0.0-0.0); NUCLEATED RED BLOOD CELLS% 1.4 /100WBC (0.0-0.0); PLATELET COUNT 146 10^3/UL (140-415); RED BLOOD COUNT 3.04 10^6/ul (4.20-5.40); RED CELL DISTRIBUTION WIDTH 19.4 % (11.5-14.5)
[2017-11-01 06:05] LABS: WHITE BLOOD COUNT 13.3 10^3/ul (4.8-10.8)
[2017-11-01] MEDS: SUCRALFATE 1 GM TAB PO ×4 (06:38→21:18)
[2017-11-01] MEDS: PANTOPRAZOLE 40 MG INJ IV (06:38)
[2017-11-01 06:50] LABS: AMMONIA 47 umol/l (9-30)
[2017-11-01 06:58] LABS: ALANINE AMINOTRANSFERASE 48 IU/L (13-69); ALBUMIN 2.2 g/dl (3.3-4.9); ALBUMIN/GLOBULIN RATIO 0.75; ALKALINE PHOSPHATASE 243 IU/L (42-121); ANION GAP 11 (8-16); ASPARTATE AMINO TRANSFERASE 70 IU/L (15-46); BILIRUBIN,INDIRECT 0.4 mg/dl (0-1.1); BILIRUBIN,TOTAL 0.4 mg/dl (0.2-1.3); BLOOD UREA NITROGEN 55 mg/dl (7-20); CALCIUM 9.1 mg/dl (8.4-10.2); CARBON DIOXIDE 32 mmol/L (21-31); CHLORIDE 106 mmol/L (97-110); CREATININE 1.17 mg/dl (0.44-1.00); GLUCOSE 128 mg/dl (70-220); MAGNESIUM 1.8 mg/dl (1.7-2.5); POTASSIUM 3.5 mmol/L (3.5-5.1); SODIUM 145 mmol/L (135-144); TOTAL PROTEIN 5.1 g/dl (6.1-8.1)
[2017-11-01] MEDS: BUMETANIDE 1 MG TAB PO (08:26)
[2017-11-01] MEDS: AMLODIPINE 5 MG TAB PO ×2 (08:27→21:17)
[2017-11-01] MEDS: MAGNESIUM OXIDE 400 MG TAB PO ×2 (08:27→21:18)
[2017-11-01] MEDS: predniSONE 5 MG TAB PO (08:27)
[2017-11-01] MEDS: RIFAXIMIN 550 MG TAB PO ×2 (08:27→21:18)
[2017-11-01] MEDS: SILVER SULFADIAZINE 1% 25 GM CR TOP (08:28)
[2017-11-01] MEDS: L ACIDOPHIL/B LACTIS/B LONGUM CAPSULE PO ×2 (08:28→21:19)
[2017-11-01] MEDS: FLUTICASONE 0.05% 16 GM NAS SPRAY NASAL ×2 (08:28→21:20)
[2017-11-01] MEDS: LACTULOSE 30ML CUP PO ×2 (08:28→21:00)
[2017-11-01] MEDS: NYSTATIN/TRIAMCINOLONE 15 GM CR TOP (08:29)
[2017-11-01] MEDS: NYSTATIN 30 GM POWDER BTL TOP ×2 (08:29→21:19)
[2017-11-01] MEDS: ALBUTEROL/IPRATROPIUM (NEB) 3 ML AMP HHN ×3 (08:45→19:33)
[2017-11-01] MEDS: INSULIN ASPART [NOVOLOG] 3 ML PEN SC ×7 (08:54→21:25)
[2017-11-01] MEDS: INSULIN DETEMIR [LEVEMIR] (100 UNITS/ML) SYG SC ×2 (08:54→21:22)
[2017-11-01] MEDS: MEROPENEM 1 GM/50ML(PMX) 50 ML IVPB ×2 (10:19→21:20)
[2017-11-01] MEDS: MAGNESIUM SULFATE 2 GM/50 ML 50 ML IVPB (10:25)
[2017-11-01] MEDS: EPOETIN 10000 UNITS/ML (NON ESRD/NON ONCOLOGY) SC (17:50)
[2017-11-01] MEDS: MONTELUKAST 10 MG TAB PO (21:17)
[2017-11-01] MEDS: MIRTAZAPINE 15 MG TAB PO (21:19)
[2017-11-02] MEDS: ACCU-CHEK XX (02:00)
[2017-11-02] MEDS: PANTOPRAZOLE 40 MG INJ IV (06:38)
[2017-11-02 06:50] LABS: ADD MAN DIFF? NO
[2017-11-02 07:02] LABS: BASOPHIL # 0.2 10^3/ul (0.0-0.1); BASOPHILS % 1.4 % (0.0-2.0); EOSINOPHILS # 0.6 10^3/ul (0.0-0.5); HEMATOCRIT 28.9 % (37.0-47.0); LYMPHOCYTES # 0.9 10^3/ul (0.8-2.9); LYMPHOCYTES % 7.5 % (15.0-51.0); MEAN CORPUSCULAR HEMOGLOBIN 29.4 pg (29.0-33.0); MEAN CORPUSCULAR HGB CONC 31.1 g/dl (32.0-37.0); MEAN CORPUSCULAR VOLUME 94.4 fl (82.0-101.0); MEAN PLATELET VOLUME 10.6 fl (7.4-10.4); MONOCYTE # 1.3 10^3/ul (0.3-0.9); MONOCYTES % 10.7 % (0.0-11.0); NEUTROPHILS % 73.1 % (39.0-77.0); NUCLEATED RED BLOOD CELLS # 0.2 10^3/ul (0.0-0.0); NUCLEATED RED BLOOD CELLS% 1.2 /100WBC (0.0-0.0); PLATELET COUNT 137 10^3/UL (140-415); RED BLOOD COUNT 3.06 10^6/ul (4.20-5.40); RED CELL DISTRIBUTION WIDTH 19.5 % (11.5-14.5)
[2017-11-02 07:02] LABS: WHITE BLOOD COUNT 12.3 10^3/ul (4.8-10.8)
[2017-11-02 07:23] LABS: AMMONIA 38 umol/l (9-30)
[2017-11-02] MEDS: SUCRALFATE 1 GM TAB PO ×4 (07:43→20:30)
[2017-11-02] MEDS: INSULIN ASPART [NOVOLOG] 3 ML PEN SC ×7 (07:47→20:46)
[2017-11-02] MEDS: INSULIN DETEMIR [LEVEMIR] (100 UNITS/ML) SYG SC ×2 (07:54→20:55)
[2017-11-02] MEDS: ALBUTEROL/IPRATROPIUM (NEB) 3 ML AMP HHN ×3 (08:13→19:51)
[2017-11-02 08:58] LABS: ALANINE AMINOTRANSFERASE 52 IU/L (13-69); ALBUMIN 2.5 g/dl (3.3-4.9); ALBUMIN/GLOBULIN RATIO 0.75; ALKALINE PHOSPHATASE 299 IU/L (42-121); ANION GAP 14 (8-16); ASPARTATE AMINO TRANSFERASE 100 IU/L (15-46); BILIRUBIN,INDIRECT 0.4 mg/dl (0-1.1); BILIRUBIN,TOTAL 0.4 mg/dl (0.2-1.3); BLOOD UREA NITROGEN 50 mg/dl (7-20); CALCIUM 9.1 mg/dl (8.4-10.2); CARBON DIOXIDE 32 mmol/L (21-31); CHLORIDE 105 mmol/L (97-110); CREATININE 1.14 mg/dl (0.44-1.00); GLUCOSE 142 mg/dl (70-220); POTASSIUM 3.5 mmol/L (3.5-5.1); SODIUM 147 mmol/L (135-144); TOTAL PROTEIN 5.8 g/dl (6.1-8.1)
[2017-11-02] MEDS: NYSTATIN 30 GM POWDER BTL TOP ×2 (09:22→20:33)
[2017-11-02] MEDS: BUMETANIDE 1 MG TAB PO (09:22)
[2017-11-02] MEDS: MAGNESIUM OXIDE 400 MG TAB PO ×2 (09:23→20:31)
[2017-11-02] MEDS: RIFAXIMIN 550 MG TAB PO ×2 (09:23→20:30)
[2017-11-02] MEDS: L ACIDOPHIL/B LACTIS/B LONGUM CAPSULE PO ×2 (09:23→20:30)
[2017-11-02] MEDS: AMLODIPINE 5 MG TAB PO ×2 (09:23→20:32)
[2017-11-02] MEDS: LACTULOSE 30ML CUP PO ×2 (09:23→20:31)
[2017-11-02] MEDS: predniSONE 5 MG TAB PO (09:23)
[2017-11-02] MEDS: FLUTICASONE 0.05% 16 GM NAS SPRAY NASAL ×2 (09:24→20:32)
[2017-11-02] MEDS: MEROPENEM 1 GM/50ML(PMX) 50 ML IVPB ×2 (09:24→22:49)
[2017-11-02] MEDS: SILVER SULFADIAZINE 1% 25 GM CR TOP (09:25)
[2017-11-02] MEDS: NYSTATIN/TRIAMCINOLONE 15 GM CR TOP (09:25)
[2017-11-02] MEDS: MONTELUKAST 10 MG TAB PO (20:30)
[2017-11-02] MEDS: MIRTAZAPINE 15 MG TAB PO (20:32)
[2017-11-03] MEDS: ACCU-CHEK XX (02:42)
[2017-11-03] MEDS: PANTOPRAZOLE 40 MG INJ IV (05:55)
[2017-11-03 06:17] LABS: ADD MAN DIFF? NO
[2017-11-03 06:29] LABS: WHITE BLOOD COUNT 12.7 10^3/ul (4.8-10.8)
[2017-11-03 06:29] LABS: BASOPHIL # 0.2 10^3/ul (0.0-0.1); BASOPHILS % 1.3 % (0.0-2.0); EOSINOPHILS # 0.8 10^3/ul (0.0-0.5); EOSINOPHILS % 6.2 % (0.0-7.0); HEMATOCRIT 27.8 % (37.0-47.0); HEMOGLOBIN 8.7 g/dl (12.0-16.0); LYMPHOCYTES # 1.2 10^3/ul (0.8-2.9); LYMPHOCYTES % 9.2 % (15.0-51.0); MEAN CORPUSCULAR HEMOGLOBIN 29.9 pg (29.0-33.0); MEAN CORPUSCULAR HGB CONC 31.3 g/dl (32.0-37.0); MEAN CORPUSCULAR VOLUME 95.5 fl (82.0-101.0); MONOCYTE # 1.5 10^3/ul (0.3-0.9); MONOCYTES % 11.7 % (0.0-11.0); NEUTROPHIL # 8.6 10^3/ul (1.6-7.5); NEUTROPHILS % 68.3 % (39.0-77.0); NUCLEATED RED BLOOD CELLS # 0.1 10^3/ul (0.0-0.0); PLATELET COUNT 140 10^3/UL (140-415); RED BLOOD COUNT 2.91 10^6/ul (4.20-5.40); RED CELL DISTRIBUTION WIDTH 19.1 % (11.5-14.5)
[2017-11-03 07:10] LABS: ANION GAP 11 (8-16); BLOOD UREA NITROGEN 53 mg/dl (7-20); CARBON DIOXIDE 34 mmol/L (21-31); CHLORIDE 103 mmol/L (97-110); CREATININE 1.16 mg/dl (0.44-1.00); GLUCOSE 176 mg/dl (70-220); POTASSIUM 3.6 mmol/L (3.5-5.1); SODIUM 144 mmol/L (135-144)
[2017-11-03] MEDS: INSULIN ASPART [NOVOLOG] 3 ML PEN SC ×7 (07:55→20:57)
[2017-11-03] MEDS: ALBUTEROL/IPRATROPIUM (NEB) 3 ML AMP HHN ×3 (08:19→19:55)
[2017-11-03] MEDS: predniSONE 5 MG TAB PO (08:32)
[2017-11-03] MEDS: SUCRALFATE 1 GM TAB PO ×4 (08:32→20:52)
[2017-11-03] MEDS: MAGNESIUM OXIDE 400 MG TAB PO ×2 (08:32→20:52)
[2017-11-03] MEDS: BUMETANIDE 1 MG TAB PO (08:32)
[2017-11-03] MEDS: L ACIDOPHIL/B LACTIS/B LONGUM CAPSULE PO ×2 (08:32→20:51)
[2017-11-03] MEDS: RIFAXIMIN 550 MG TAB PO ×2 (08:32→20:51)
[2017-11-03] MEDS: SACCHAROMYCES BOULARDII 250 MG CAP PO ×2 (08:32→20:51)
[2017-11-03] MEDS: AMLODIPINE 5 MG TAB PO ×2 (08:33→20:51)
[2017-11-03] MEDS: FLUTICASONE 0.05% 16 GM NAS SPRAY NASAL ×2 (08:33→20:59)
[2017-11-03] MEDS: SILVER SULFADIAZINE 1% 25 GM CR TOP (08:35)
[2017-11-03] MEDS: NYSTATIN/TRIAMCINOLONE 15 GM CR TOP (08:35)
[2017-11-03] MEDS: NYSTATIN 30 GM POWDER BTL TOP ×2 (08:35→21:00)
[2017-11-03] MEDS: INSULIN DETEMIR [LEVEMIR] (100 UNITS/ML) SYG SC ×2 (08:52→20:59)
[2017-11-03] MEDS: LACTULOSE 30ML CUP PO ×2 (09:00→20:59)
[2017-11-03] MEDS: MEROPENEM 1 GM/50ML(PMX) 50 ML IVPB ×2 (09:16→20:50)
[2017-11-03] MEDS: MIRTAZAPINE 15 MG TAB PO (20:52)
[2017-11-03] MEDS: MONTELUKAST 10 MG TAB PO (20:53)
[2017-11-03] MEDS: HYDROCODONE/APAP (10/325) TAB PO (21:59)
[2017-11-04] MEDS: ACCU-CHEK XX (02:00)
[2017-11-04] MEDS: PANTOPRAZOLE 40 MG INJ IV (06:06)
[2017-11-04] MEDS: ALBUTEROL/IPRATROPIUM (NEB) 3 ML AMP HHN ×3 (07:21→19:57)
[2017-11-04] MEDS: INSULIN ASPART [NOVOLOG] 3 ML PEN SC ×7 (08:09→21:52)
[2017-11-04] MEDS: SUCRALFATE 1 GM TAB PO ×4 (08:41→21:40)
[2017-11-04] MEDS: LACTULOSE 30ML CUP PO ×2 (08:41→21:39)
[2017-11-04] MEDS: SACCHAROMYCES BOULARDII 250 MG CAP PO ×2 (08:41→21:40)
[2017-11-04] MEDS: INSULIN DETEMIR [LEVEMIR] (100 UNITS/ML) SYG SC ×2 (08:41→21:52)
[2017-11-04] MEDS: AMLODIPINE 5 MG TAB PO ×2 (08:42→21:40)
[2017-11-04] MEDS: BUMETANIDE 1 MG TAB PO (08:42)
[2017-11-04] MEDS: RIFAXIMIN 550 MG TAB PO ×2 (08:42→21:40)
[2017-11-04] MEDS: MAGNESIUM OXIDE 400 MG TAB PO ×2 (08:43→21:42)
[2017-11-04] MEDS: L ACIDOPHIL/B LACTIS/B LONGUM CAPSULE PO ×2 (08:43→21:39)
[2017-11-04] MEDS: MEROPENEM 1 GM/50ML(PMX) 50 ML IVPB ×2 (08:43→21:40)
[2017-11-04] MEDS: FLUTICASONE 0.05% 16 GM NAS SPRAY NASAL ×2 (08:43→21:41)
[2017-11-04] MEDS: NYSTATIN 30 GM POWDER BTL TOP ×2 (08:44→21:41)
[2017-11-04] MEDS: NYSTATIN/TRIAMCINOLONE 15 GM CR TOP (08:44)
[2017-11-04] MEDS: SILVER SULFADIAZINE 1% 25 GM CR TOP (08:44)
[2017-11-04] MEDS: EPOETIN 10000 UNITS/ML (NON ESRD/NON ONCOLOGY) SC (17:11)
[2017-11-04] MEDS: MONTELUKAST 10 MG TAB PO (21:39)
[2017-11-04] MEDS: MIRTAZAPINE 15 MG TAB PO (21:39)
[2017-11-05] MEDS: ACCU-CHEK XX (02:00)
[2017-11-05] MEDS: PANTOPRAZOLE 40 MG INJ IV (06:48)
[2017-11-05] MEDS: ALBUTEROL/IPRATROPIUM (NEB) 3 ML AMP HHN ×3 (07:38→20:12)
[2017-11-05] MEDS: SUCRALFATE 1 GM TAB PO ×4 (08:05→20:43)
[2017-11-05] MEDS: INSULIN DETEMIR [LEVEMIR] (100 UNITS/ML) SYG SC ×2 (08:14→21:12)
[2017-11-05] MEDS: INSULIN ASPART [NOVOLOG] 3 ML PEN SC ×7 (08:15→21:12)
[2017-11-05] MEDS: MEROPENEM 1 GM/50ML(PMX) 50 ML IVPB ×2 (08:57→20:43)
[2017-11-05] MEDS: LACTULOSE 30ML CUP PO ×2 (08:57→20:44)
[2017-11-05] MEDS: RIFAXIMIN 550 MG TAB PO ×2 (08:58→20:43)
[2017-11-05] MEDS: MAGNESIUM OXIDE 400 MG TAB PO ×2 (08:58→21:13)
[2017-11-05] MEDS: L ACIDOPHIL/B LACTIS/B LONGUM CAPSULE PO ×2 (08:58→20:43)
[2017-11-05] MEDS: BUMETANIDE 1 MG TAB PO (08:58)
[2017-11-05] MEDS: AMLODIPINE 5 MG TAB PO ×2 (08:58→20:43)
[2017-11-05] MEDS: SACCHAROMYCES BOULARDII 250 MG CAP PO ×2 (08:58→20:43)
[2017-11-05] MEDS: FLUTICASONE 0.05% 16 GM NAS SPRAY NASAL ×2 (08:59→20:44)
[2017-11-05] MEDS: SILVER SULFADIAZINE 1% 25 GM CR TOP (08:59)
[2017-11-05] MEDS: NYSTATIN/TRIAMCINOLONE 15 GM CR TOP (09:00)
[2017-11-05] MEDS: NYSTATIN 30 GM POWDER BTL TOP ×2 (09:00→20:45)
[2017-11-05] MEDS: MONTELUKAST 10 MG TAB PO (20:43)
[2017-11-05] MEDS: MIRTAZAPINE 15 MG TAB PO (20:43)
[2017-11-06] MEDS: ACCU-CHEK XX (02:00)
[2017-11-06] MEDS: PANTOPRAZOLE 40 MG INJ IV (05:03)
[2017-11-06 06:44] LABS: ADD MAN DIFF? NO
[2017-11-06 06:57] LABS: BASOPHIL # 0.1 10^3/ul (0.0-0.1); BASOPHILS % 0.9 % (0.0-2.0); EOSINOPHILS # 0.7 10^3/ul (0.0-0.5); EOSINOPHILS % 5.3 % (0.0-7.0); HEMATOCRIT 26.9 % (37.0-47.0); HEMOGLOBIN 8.2 g/dl (12.0-16.0); LYMPHOCYTES # 1.6 10^3/ul (0.8-2.9); LYMPHOCYTES % 12.3 % (15.0-51.0); MEAN CORPUSCULAR HEMOGLOBIN 29.6 pg (29.0-33.0); MEAN CORPUSCULAR HGB CONC 30.5 g/dl (32.0-37.0); MEAN CORPUSCULAR VOLUME 97.1 fl (82.0-101.0); MEAN PLATELET VOLUME 10.4 fl (7.4-10.4); MONOCYTE # 1.4 10^3/ul (0.3-0.9); MONOCYTES % 11.2 % (0.0-11.0); NEUTROPHIL # 8.4 10^3/ul (1.6-7.5); NEUTROPHILS % 66.7 % (39.0-77.0); NUCLEATED RED BLOOD CELLS # 0.1 10^3/ul (0.0-0.0); NUCLEATED RED BLOOD CELLS% 0.9 /100WBC (0.0-0.0); PLATELET COUNT 140 10^3/UL (140-415); RED BLOOD COUNT 2.77 10^6/ul (4.20-5.40); RED CELL DISTRIBUTION WIDTH 18.7 % (11.5-14.5)
[2017-11-06 06:57] LABS: WHITE BLOOD COUNT 12.6 10^3/ul (4.8-10.8)
[2017-11-06 07:30] LABS: AMMONIA 25 umol/l (9-30)
[2017-11-06 07:39] LABS: ALANINE AMINOTRANSFERASE 75 IU/L (13-69); ALBUMIN 2.2 g/dl (3.3-4.9); ALBUMIN/GLOBULIN RATIO 0.73; ALKALINE PHOSPHATASE 287 IU/L (42-121); ANION GAP 9 (8-16); ASPARTATE AMINO TRANSFERASE 134 IU/L (15-46); BILIRUBIN,INDIRECT 0.6 mg/dl (0-1.1); BILIRUBIN,TOTAL 0.6 mg/dl (0.2-1.3); BLOOD UREA NITROGEN 56 mg/dl (7-20); CALCIUM 8.9 mg/dl (8.4-10.2); CARBON DIOXIDE 34 mmol/L (21-31); CHLORIDE 99 mmol/L (97-110); CREATININE 1.48 mg/dl (0.44-1.00); GLUCOSE 233 mg/dl (70-220); MAGNESIUM 1.8 mg/dl (1.7-2.5); POTASSIUM 4.7 mmol/L (3.5-5.1); SODIUM 137 mmol/L (135-144); TOTAL PROTEIN 5.2 g/dl (6.1-8.1)
[2017-11-06] MEDS: ALBUTEROL/IPRATROPIUM (NEB) 3 ML AMP HHN ×3 (08:02→19:31)
[2017-11-06] MEDS: RIFAXIMIN 550 MG TAB PO ×2 (08:15→20:31)
[2017-11-06] MEDS: SUCRALFATE 1 GM TAB PO ×4 (08:15→20:32)
[2017-11-06] MEDS: L ACIDOPHIL/B LACTIS/B LONGUM CAPSULE PO ×2 (08:16→20:32)
[2017-11-06] MEDS: FLUTICASONE 0.05% 16 GM NAS SPRAY NASAL ×2 (08:16→20:34)
[2017-11-06] MEDS: AMLODIPINE 5 MG TAB PO ×2 (08:16→20:33)
[2017-11-06] MEDS: MAGNESIUM OXIDE 400 MG TAB PO ×2 (08:16→20:32)
[2017-11-06] MEDS: LACTULOSE 30ML CUP PO ×2 (08:16→20:31)
[2017-11-06] MEDS: SACCHAROMYCES BOULARDII 250 MG CAP PO ×2 (08:16→20:32)
[2017-11-06] MEDS: BUMETANIDE 1 MG TAB PO (08:16)
[2017-11-06] MEDS: NYSTATIN 30 GM POWDER BTL TOP ×2 (08:17→21:53)
[2017-11-06] MEDS: NYSTATIN/TRIAMCINOLONE 15 GM CR TOP (08:17)
[2017-11-06] MEDS: SILVER SULFADIAZINE 1% 25 GM CR TOP (08:17)
[2017-11-06] MEDS: INSULIN ASPART [NOVOLOG] 3 ML PEN SC ×7 (08:49→20:40)
[2017-11-06] MEDS: INSULIN DETEMIR [LEVEMIR] (100 UNITS/ML) SYG SC ×2 (08:49→20:39)
[2017-11-06] MEDS: MEROPENEM 1 GM/50ML(PMX) 50 ML IVPB ×2 (08:54→20:33)
[2017-11-06] MEDS: MAGNESIUM SULFATE 2 GM/50 ML 50 ML IVPB (09:58)
[2017-11-06] MEDS: ACETAMINOPHEN 325 MG TAB PO (10:28)
[2017-11-06] MEDS: EPOETIN 10000 UNITS/ML (NON ESRD/NON ONCOLOGY) SC (17:37)
[2017-11-06] MEDS: MIRTAZAPINE 15 MG TAB PO (20:32)
[2017-11-06] MEDS: MONTELUKAST 10 MG TAB PO (20:34)
[2017-11-07] MEDS: ACCU-CHEK XX (01:37)
[2017-11-07] MEDS: PANTOPRAZOLE 40 MG INJ IV (06:09)
[2017-11-07 06:38] LABS: ABNORMAL IP MESSAGE 1; HEMATOCRIT 36.8 % (37.0-47.0); MEAN CORPUSCULAR HEMOGLOBIN 29.5 pg (29.0-33.0); MEAN CORPUSCULAR HGB CONC 30.7 g/dl (32.0-37.0); MEAN CORPUSCULAR VOLUME 96.1 fl (82.0-101.0); MEAN PLATELET VOLUME 10.2 fl (7.4-10.4); NUCLEATED RED BLOOD CELLS% 2.2 /100WBC (0.0-0.0); PLATELET COUNT 98 10^3/UL (140-415); RED BLOOD COUNT 3.83 10^6/ul (4.20-5.40); RED CELL DISTRIBUTION WIDTH 18.8 % (11.5-14.5)
[2017-11-07 06:38] LABS: WHITE BLOOD COUNT 7.3 10^3/ul (4.8-10.8)
[2017-11-07 06:43] LABS: POSITIVE DIFF @See below
[2017-11-07 06:57] LABS: ADD MAN DIFF? YES; HEMOGLOBIN 11.3 g/dl (12.0-16.0)
[2017-11-07 07:02] LABS: ALANINE AMINOTRANSFERASE 79 IU/L (13-69); ALBUMIN 2.1 g/dl (3.3-4.9); ALBUMIN/GLOBULIN RATIO 0.67; ALKALINE PHOSPHATASE 303 IU/L (42-121); ANION GAP 11 (8-16); ASPARTATE AMINO TRANSFERASE 132 IU/L (15-46); BILIRUBIN,INDIRECT 0.4 mg/dl (0-1.1); BILIRUBIN,TOTAL 0.4 mg/dl (0.2-1.3); BLOOD UREA NITROGEN 61 mg/dl (7-20); CALCIUM 8.7 mg/dl (8.4-10.2); CARBON DIOXIDE 34 mmol/L (21-31); CHLORIDE 97 mmol/L (97-110); CREATININE 1.51 mg/dl (0.44-1.00); GLUCOSE 259 mg/dl (70-220); MAGNESIUM 2.3 mg/dl (1.7-2.5); POTASSIUM 4.5 mmol/L (3.5-5.1); SODIUM 137 mmol/L (135-144); TOTAL PROTEIN 5.2 g/dl (6.1-8.1)
[2017-11-07 07:08] LABS: AMMONIA 38 umol/l (9-30)
[2017-11-07] MEDS: ALBUTEROL/IPRATROPIUM (NEB) 3 ML AMP HHN ×3 (07:38→19:45)
[2017-11-07] MEDS: INSULIN ASPART [NOVOLOG] 3 ML PEN SC ×7 (08:43→21:20)
[2017-11-07] MEDS: INSULIN DETEMIR [LEVEMIR] (100 UNITS/ML) SYG SC ×2 (08:44→22:26)
[2017-11-07] MEDS: SILVER SULFADIAZINE 1% 25 GM CR TOP (09:00)
[2017-11-07] MEDS: NYSTATIN 30 GM POWDER BTL TOP ×2 (09:00→21:21)
[2017-11-07] MEDS: NYSTATIN/TRIAMCINOLONE 15 GM CR TOP (09:00)
[2017-11-07] MEDS: FLUTICASONE 0.05% 16 GM NAS SPRAY NASAL ×2 (09:11→21:18)
[2017-11-07] MEDS: LACTULOSE 30ML CUP PO ×2 (09:11→21:13)
[2017-11-07] MEDS: MEROPENEM 1 GM/50ML(PMX) 50 ML IVPB ×2 (09:11→21:18)
[2017-11-07] MEDS: SUCRALFATE 1 GM TAB PO ×4 (09:12→21:13)
[2017-11-07] MEDS: L ACIDOPHIL/B LACTIS/B LONGUM CAPSULE PO ×2 (09:12→21:13)
[2017-11-07] MEDS: RIFAXIMIN 550 MG TAB PO ×2 (09:12→21:12)
[2017-11-07] MEDS: AMLODIPINE 5 MG TAB PO ×2 (09:12→21:13)
[2017-11-07] MEDS: MAGNESIUM OXIDE 400 MG TAB PO ×2 (09:12→21:14)
[2017-11-07] MEDS: BUMETANIDE 1 MG INJ IV (09:13)
[2017-11-07] MEDS: SACCHAROMYCES BOULARDII 250 MG CAP PO ×2 (09:13→21:14)
[2017-11-07 09:20] LABS: ANISOCYTOSIS 1+ (0-0); BAND NEUTROPHILS #M 0.1 10^3/ul (0.0-0.6); BAND NEUTROPHILS % (M) 2 % (0-4); BASOPHILS % (M) 1 % (0-2); EOSINOPHILS % (M) 3 % (0-7); LYMPHOCYTES #M 0.6 10^3/ul (0.8-2.9); LYMPHOCYTES % (M) 9 % (15-51); METAMYELOCYTES %M 1 % (0-0); MONOCYTE #M 0.2 10^3/ul (0.3-0.9); MONOCYTES % (M) 3 % (0-11); MYELOCYTES #M 0.1 10^3/ul (0.0-0.0); MYELOCYTES % (M) 2 % (0-0); PLATELET ESTIMATE DECREASED; POLYCHROMASIA 1+ (0-0); REACTIVE LYMPHOCYTES #M 0.2 10^3/ul (0.0-0.0); REACTIVE LYMPHOCYTES% (M) 3 % (0-0); SEG NEUT #M 5.6 10^3/ul (1.6-7.5); SEGMENTED NEUTROPHILS (M) % 76 % (39-77); SMUDGE%M 27 % (0-0)
[2017-11-07] MEDS: BUMETANIDE 1 MG TAB PO (12:09)
[2017-11-07] MEDS: ACETAMINOPHEN 325 MG TAB PO ×2 (12:10→22:23)
[2017-11-07] MEDS: HYDROCODONE/APAP (10/325) TAB PO (12:10)
[2017-11-07] MEDS: MIRTAZAPINE 15 MG TAB PO (21:12)
[2017-11-07] MEDS: MONTELUKAST 10 MG TAB PO (21:13)
[2017-11-08] MEDS: ACCU-CHEK XX (01:55)
[2017-11-08] MEDS: PANTOPRAZOLE 40 MG INJ IV (05:14)
[2017-11-08 06:56] LABS: ADD MAN DIFF? NO
[2017-11-08 07:02] LABS: BASOPHIL # 0.1 10^3/ul (0.0-0.1); BASOPHILS % 1.2 % (0.0-2.0); EOSINOPHILS # 0.5 10^3/ul (0.0-0.5); EOSINOPHILS % 4.4 % (0.0-7.0); HEMATOCRIT 24.2 % (37.0-47.0); LYMPHOCYTES # 1.3 10^3/ul (0.8-2.9); LYMPHOCYTES % 11.8 % (15.0-51.0); MEAN CORPUSCULAR HEMOGLOBIN 29.5 pg (29.0-33.0); MEAN CORPUSCULAR VOLUME 95.3 fl (82.0-101.0); MEAN PLATELET VOLUME 10.3 fl (7.4-10.4); MONOCYTE # 1.3 10^3/ul (0.3-0.9); NEUTROPHIL # 7.3 10^3/ul (1.6-7.5); NEUTROPHILS % 66.2 % (39.0-77.0); NUCLEATED RED BLOOD CELLS # 0.2 10^3/ul (0.0-0.0); NUCLEATED RED BLOOD CELLS% 1.4 /100WBC (0.0-0.0); PLATELET COUNT 130 10^3/UL (140-415); RED BLOOD COUNT 2.54 10^6/ul (4.20-5.40); RED CELL DISTRIBUTION WIDTH 18.4 % (11.5-14.5)
[2017-11-08 07:18] LABS: AMMONIA 64 umol/l (9-30)
[2017-11-08 07:26] LABS: ALANINE AMINOTRANSFERASE 81 IU/L (13-69); ALBUMIN 2.1 g/dl (3.3-4.9); ALBUMIN/GLOBULIN RATIO 0.65; ALKALINE PHOSPHATASE 291 IU/L (42-121); ANION GAP 8 (8-16); ASPARTATE AMINO TRANSFERASE 142 IU/L (15-46); BILIRUBIN,INDIRECT 0.4 mg/dl (0-1.1); BILIRUBIN,TOTAL 0.4 mg/dl (0.2-1.3); BLOOD UREA NITROGEN 61 mg/dl (7-20); CARBON DIOXIDE 36 mmol/L (21-31); CHLORIDE 98 mmol/L (97-110); CREATININE 1.19 mg/dl (0.44-1.00); GLUCOSE 119 mg/dl (70-220); MAGNESIUM 2.2 mg/dl (1.7-2.5); POTASSIUM 4.1 mmol/L (3.5-5.1); SODIUM 138 mmol/L (135-144); TOTAL PROTEIN 5.3 g/dl (6.1-8.1)
[2017-11-08 07:29] LABS: HEMOGLOBIN 7.5 g/dl (12.0-16.0)
[2017-11-08] MEDS: ALBUTEROL/IPRATROPIUM (NEB) 3 ML AMP HHN ×3 (08:03→20:30)
[2017-11-08] MEDS: SILVER SULFADIAZINE 1% 25 GM CR TOP (08:31)
[2017-11-08] MEDS: NYSTATIN 30 GM POWDER BTL TOP ×2 (08:32→21:21)
[2017-11-08] MEDS: NYSTATIN/TRIAMCINOLONE 15 GM CR TOP (08:32)
[2017-11-08] MEDS: LACTULOSE 30ML CUP PO ×2 (08:46→21:20)
[2017-11-08] MEDS: MEROPENEM 1 GM/50ML(PMX) 50 ML IVPB ×2 (08:46→21:32)
[2017-11-08] MEDS: BUMETANIDE 1 MG INJ IV (08:47)
[2017-11-08] MEDS: AMLODIPINE 5 MG TAB PO ×2 (08:47→21:20)
[2017-11-08] MEDS: L ACIDOPHIL/B LACTIS/B LONGUM CAPSULE PO ×2 (08:47→21:18)
[2017-11-08] MEDS: SACCHAROMYCES BOULARDII 250 MG CAP PO ×2 (08:47→21:18)
[2017-11-08] MEDS: BUMETANIDE 1 MG TAB PO (08:47)
[2017-11-08] MEDS: RANITIDINE 150 MG TAB PO ×2 (08:47→21:19)
[2017-11-08] MEDS: MAGNESIUM OXIDE 400 MG TAB PO ×2 (08:48→21:18)
[2017-11-08] MEDS: SUCRALFATE 1 GM TAB PO ×4 (08:48→21:18)
[2017-11-08] MEDS: INSULIN ASPART [NOVOLOG] 3 ML PEN SC ×7 (08:52→20:45)
[2017-11-08] MEDS: INSULIN DETEMIR [LEVEMIR] (100 UNITS/ML) SYG SC ×2 (08:53→20:45)
[2017-11-08] MEDS: FLUTICASONE 0.05% 16 GM NAS SPRAY NASAL ×2 (09:11→21:20)
[2017-11-08] MEDS: RIFAXIMIN 550 MG TAB PO ×2 (09:14→21:18)
[2017-11-08 09:21] LABS: ADD MAN DIFF? NO
[2017-11-08 09:29] LABS: WHITE BLOOD COUNT 11.9 10^3/ul (4.8-10.8)
[2017-11-08 09:29] LABS: BASOPHIL # 0.1 10^3/ul (0.0-0.1); BASOPHILS % 1.1 % (0.0-2.0); EOSINOPHILS # 0.5 10^3/ul (0.0-0.5); EOSINOPHILS % 4.4 % (0.0-7.0); HEMATOCRIT 25.9 % (37.0-47.0); HEMOGLOBIN 7.9 g/dl (12.0-16.0); LYMPHOCYTES # 1.7 10^3/ul (0.8-2.9); MEAN CORPUSCULAR HEMOGLOBIN 29.6 pg (29.0-33.0); MEAN CORPUSCULAR HGB CONC 30.5 g/dl (32.0-37.0); MEAN PLATELET VOLUME 10.5 fl (7.4-10.4); MONOCYTE # 1.5 10^3/ul (0.3-0.9); MONOCYTES % 12.5 % (0.0-11.0); NEUTROPHIL # 7.7 10^3/ul (1.6-7.5); NEUTROPHILS % 64.9 % (39.0-77.0); NUCLEATED RED BLOOD CELLS # 0.2 10^3/ul (0.0-0.0); NUCLEATED RED BLOOD CELLS% 1.3 /100WBC (0.0-0.0); PLATELET COUNT 143 10^3/UL (140-415); RED BLOOD COUNT 2.67 10^6/ul (4.20-5.40); RED CELL DISTRIBUTION WIDTH 18.4 % (11.5-14.5)
[2017-11-08 12:26] LABS: ADD MAN DIFF? NO
[2017-11-08 12:28] LABS: WHITE BLOOD COUNT 11.8 10^3/ul (4.8-10.8)
[2017-11-08 12:28] LABS: BASOPHIL # 0.2 10^3/ul (0.0-0.1); BASOPHILS % 1.4 % (0.0-2.0); EOSINOPHILS # 0.5 10^3/ul (0.0-0.5); EOSINOPHILS % 4.5 % (0.0-7.0); HEMATOCRIT 25.8 % (37.0-47.0); LYMPHOCYTES # 1.4 10^3/ul (0.8-2.9); LYMPHOCYTES % 12.2 % (15.0-51.0); MEAN CORPUSCULAR HEMOGLOBIN 29.4 pg (29.0-33.0); MEAN CORPUSCULAR VOLUME 94.9 fl (82.0-101.0); MEAN PLATELET VOLUME 10.6 fl (7.4-10.4); MONOCYTE # 1.4 10^3/ul (0.3-0.9); NEUTROPHIL # 7.8 10^3/ul (1.6-7.5); NEUTROPHILS % 65.9 % (39.0-77.0); NUCLEATED RED BLOOD CELLS # 0.1 10^3/ul (0.0-0.0); NUCLEATED RED BLOOD CELLS% 1.2 /100WBC (0.0-0.0); PLATELET COUNT 146 10^3/UL (140-415); RED BLOOD COUNT 2.72 10^6/ul (4.20-5.40); RED CELL DISTRIBUTION WIDTH 18.2 % (11.5-14.5)
[2017-11-08] MEDS: ACETAMINOPHEN 325 MG TAB PO (13:05)
[2017-11-08 13:48] LABS: OCCULT BLOOD STOOL POSITIVE (NEGATIVE)
[2017-11-08] MEDS: EPOETIN 10000 UNITS/ML (NON ESRD/NON ONCOLOGY) SC (18:07)
[2017-11-08] MEDS: MONTELUKAST 10 MG TAB PO (21:19)
[2017-11-08] MEDS: MIRTAZAPINE 15 MG TAB PO (21:19)
[2017-11-09] MEDS: ACCU-CHEK XX (02:03)
[2017-11-09 06:14] LABS: ADD MAN DIFF? NO
[2017-11-09] MEDS: PANTOPRAZOLE 40 MG INJ IV (06:19)
[2017-11-09 06:21] LABS: BASOPHIL # 0.1 10^3/ul (0.0-0.1); BASOPHILS % 1.2 % (0.0-2.0); EOSINOPHILS # 0.5 10^3/ul (0.0-0.5); EOSINOPHILS % 4.8 % (0.0-7.0); HEMATOCRIT 23.7 % (37.0-47.0); HEMOGLOBIN 7.4 g/dl (12.0-16.0); LYMPHOCYTES # 1.4 10^3/ul (0.8-2.9); LYMPHOCYTES % 13.5 % (15.0-51.0); MEAN CORPUSCULAR HEMOGLOBIN 30.2 pg (29.0-33.0); MEAN CORPUSCULAR HGB CONC 31.2 g/dl (32.0-37.0); MEAN CORPUSCULAR VOLUME 96.7 fl (82.0-101.0); MEAN PLATELET VOLUME 10.7 fl (7.4-10.4); MONOCYTE # 1.2 10^3/ul (0.3-0.9); MONOCYTES % 11.5 % (0.0-11.0); NEUTROPHIL # 6.8 10^3/ul (1.6-7.5); NEUTROPHILS % 65.5 % (39.0-77.0); NUCLEATED RED BLOOD CELLS # 0.2 10^3/ul (0.0-0.0); NUCLEATED RED BLOOD CELLS% 1.4 /100WBC (0.0-0.0); PLATELET COUNT 130 10^3/UL (140-415); RED BLOOD COUNT 2.45 10^6/ul (4.20-5.40); RED CELL DISTRIBUTION WIDTH 18.4 % (11.5-14.5)
[2017-11-09 06:21] LABS: WHITE BLOOD COUNT 10.4 10^3/ul (4.8-10.8)
[2017-11-09 06:51] LABS: ALANINE AMINOTRANSFERASE 72 IU/L (13-69); ALBUMIN 2.3 g/dl (3.3-4.9); ALBUMIN/GLOBULIN RATIO 0.67; ALKALINE PHOSPHATASE 314 IU/L (42-121); ANION GAP 8 (8-16); ASPARTATE AMINO TRANSFERASE 137 IU/L (15-46); BILIRUBIN,INDIRECT 0.4 mg/dl (0-1.1); BILIRUBIN,TOTAL 0.4 mg/dl (0.2-1.3); BLOOD UREA NITROGEN 65 mg/dl (7-20); CALCIUM 8.9 mg/dl (8.4-10.2); CARBON DIOXIDE 34 mmol/L (21-31); CHLORIDE 98 mmol/L (97-110); CREATININE 1.18 mg/dl (0.44-1.00); GLUCOSE 196 mg/dl (70-220); MAGNESIUM 2.1 mg/dl (1.7-2.5); POTASSIUM 4.1 mmol/L (3.5-5.1); SODIUM 136 mmol/L (135-144); TOTAL PROTEIN 5.7 g/dl (6.1-8.1)
[2017-11-09 07:02] LABS: AMMONIA 43 umol/l (9-30)
[2017-11-09] MEDS: INSULIN DETEMIR [LEVEMIR] (100 UNITS/ML) SYG SC ×2 (08:18→21:02)
[2017-11-09] MEDS: INSULIN ASPART [NOVOLOG] 3 ML PEN SC ×7 (08:19→21:03)
[2017-11-09] MEDS: FLUTICASONE 0.05% 16 GM NAS SPRAY NASAL ×2 (08:21→20:48)
[2017-11-09] MEDS: AMLODIPINE 5 MG TAB PO ×2 (08:23→20:45)
[2017-11-09] MEDS: SACCHAROMYCES BOULARDII 250 MG CAP PO ×2 (08:23→20:45)
[2017-11-09] MEDS: RIFAXIMIN 550 MG TAB PO ×2 (08:23→20:45)
[2017-11-09] MEDS: RANITIDINE 150 MG TAB PO ×2 (08:24→20:44)
[2017-11-09] MEDS: L ACIDOPHIL/B LACTIS/B LONGUM CAPSULE PO ×2 (08:24→20:47)
[2017-11-09] MEDS: MAGNESIUM OXIDE 400 MG TAB PO ×2 (08:24→20:47)
[2017-11-09] MEDS: SUCRALFATE 1 GM TAB PO ×4 (08:24→20:47)
[2017-11-09] MEDS: BUMETANIDE 1 MG TAB PO (08:25)
[2017-11-09] MEDS: LACTULOSE 30ML CUP PO ×2 (08:25→20:44)
[2017-11-09] MEDS: MEROPENEM 1 GM/50ML(PMX) 50 ML IVPB ×2 (08:37→20:48)
[2017-11-09] MEDS: ALBUTEROL/IPRATROPIUM (NEB) 3 ML AMP HHN ×3 (08:41→21:00)
[2017-11-09] MEDS: NYSTATIN 30 GM POWDER BTL TOP ×2 (09:00→20:48)
[2017-11-09] MEDS: SILVER SULFADIAZINE 1% 25 GM CR TOP (09:00)
[2017-11-09] MEDS: NYSTATIN/TRIAMCINOLONE 15 GM CR TOP (09:00)
[2017-11-09 10:12] LABS: ADD MAN DIFF? NO
[2017-11-09 10:21] LABS: BASOPHIL # 0.1 10^3/ul (0.0-0.1); BASOPHILS % 1.4 % (0.0-2.0); EOSINOPHILS # 0.5 10^3/ul (0.0-0.5); EOSINOPHILS % 4.8 % (0.0-7.0); HEMATOCRIT 24.8 % (37.0-47.0); HEMOGLOBIN 7.7 g/dl (12.0-16.0); LYMPHOCYTES # 1.3 10^3/ul (0.8-2.9); LYMPHOCYTES % 13.8 % (15.0-51.0); MEAN CORPUSCULAR VOLUME 96.5 fl (82.0-101.0); MEAN PLATELET VOLUME 11.1 fl (7.4-10.4); MONOCYTE # 0.9 10^3/ul (0.3-0.9); MONOCYTES % 9.7 % (0.0-11.0); NEUTROPHIL # 6.2 10^3/ul (1.6-7.5); NEUTROPHILS % 66.3 % (39.0-77.0); NUCLEATED RED BLOOD CELLS # 0.1 10^3/ul (0.0-0.0); NUCLEATED RED BLOOD CELLS% 1.4 /100WBC (0.0-0.0); PLATELET COUNT 138 10^3/UL (140-415); RED BLOOD COUNT 2.57 10^6/ul (4.20-5.40); RED CELL DISTRIBUTION WIDTH 18.4 % (11.5-14.5)
[2017-11-09 10:21] LABS: WHITE BLOOD COUNT 9.4 10^3/ul (4.8-10.8)
[2017-11-09 10:53] LABS: OCCULT BLOOD STOOL POSITIVE (NEGATIVE)
[2017-11-09] MEDS: MIRTAZAPINE 15 MG TAB PO (20:45)
[2017-11-09] MEDS: MONTELUKAST 10 MG TAB PO (20:45)
[2017-11-10] MEDS: ACCU-CHEK XX (02:03)
[2017-11-10] MEDS: HYDROCODONE/APAP (10/325) TAB PO (02:04)
[2017-11-10] MEDS: PANTOPRAZOLE 40 MG INJ IV (05:38)
[2017-11-10 06:15] LABS: ADD MAN DIFF? NO; BASOPHIL # 0.1 10^3/ul (0.0-0.1); BASOPHILS % 0.9 % (0.0-2.0); EOSINOPHILS # 0.5 10^3/ul (0.0-0.5); EOSINOPHILS % 4.3 % (0.0-7.0); HEMATOCRIT 23.5 % (37.0-47.0); HEMOGLOBIN 7.2 g/dl (12.0-16.0); LYMPHOCYTES # 1.4 10^3/ul (0.8-2.9); LYMPHOCYTES % 13.5 % (15.0-51.0); MEAN CORPUSCULAR HEMOGLOBIN 29.6 pg (29.0-33.0); MEAN CORPUSCULAR HGB CONC 30.6 g/dl (32.0-37.0); MEAN CORPUSCULAR VOLUME 96.7 fl (82.0-101.0); MEAN PLATELET VOLUME 10.8 fl (7.4-10.4); MONOCYTE # 1.2 10^3/ul (0.3-0.9); MONOCYTES % 11.8 % (0.0-11.0); NEUTROPHIL # 7.1 10^3/ul (1.6-7.5); NUCLEATED RED BLOOD CELLS # 0.1 10^3/ul (0.0-0.0); NUCLEATED RED BLOOD CELLS% 1.3 /100WBC (0.0-0.0); PLATELET COUNT 141 10^3/UL (140-415); RED BLOOD COUNT 2.43 10^6/ul (4.20-5.40); RED CELL DISTRIBUTION WIDTH 18.4 % (11.5-14.5)
[2017-11-10 06:15] LABS: WHITE BLOOD COUNT 10.5 10^3/ul (4.8-10.8)
[2017-11-10] MEDS: INSULIN ASPART [NOVOLOG] 3 ML PEN SC ×7 (08:00→21:00)
[2017-11-10] MEDS: INSULIN DETEMIR [LEVEMIR] (100 UNITS/ML) SYG SC ×2 (08:16→21:18)
[2017-11-10] MEDS: LACTULOSE 30ML CUP PO ×2 (08:34→21:09)
[2017-11-10] MEDS: RIFAXIMIN 550 MG TAB PO ×2 (08:35→21:09)
[2017-11-10] MEDS: AMLODIPINE 5 MG TAB PO ×2 (08:35→21:10)
[2017-11-10] MEDS: SUCRALFATE 1 GM TAB PO ×4 (08:35→21:10)
[2017-11-10] MEDS: MAGNESIUM OXIDE 400 MG TAB PO ×2 (08:36→21:10)
[2017-11-10] MEDS: RANITIDINE 150 MG TAB PO ×2 (08:36→21:09)
[2017-11-10] MEDS: L ACIDOPHIL/B LACTIS/B LONGUM CAPSULE PO ×2 (08:36→21:09)
[2017-11-10] MEDS: BUMETANIDE 1 MG TAB PO (08:36)
[2017-11-10] MEDS: SACCHAROMYCES BOULARDII 250 MG CAP PO ×2 (08:36→21:09)
[2017-11-10] MEDS: MEROPENEM 1 GM/50ML(PMX) 50 ML IVPB ×2 (08:37→21:08)
[2017-11-10] MEDS: FLUTICASONE 0.05% 16 GM NAS SPRAY NASAL ×2 (08:37→21:12)
[2017-11-10] MEDS: SILVER SULFADIAZINE 1% 25 GM CR TOP (09:00)
[2017-11-10] MEDS: NYSTATIN 30 GM POWDER BTL TOP ×2 (09:00→21:14)
[2017-11-10] MEDS: NYSTATIN/TRIAMCINOLONE 15 GM CR TOP (09:00)
[2017-11-10] MEDS: ALBUTEROL/IPRATROPIUM (NEB) 3 ML AMP HHN ×3 (09:25→20:58)
[2017-11-10 12:08] LABS: HEMATOCRIT 25.8 % (37.0-47.0); HEMOGLOBIN 7.9 g/dl (12.0-16.0)
[2017-11-10] MEDS: FLUTICASONE/VILANTEROL 200-25 INH DEVICE INH (14:21)
[2017-11-10] MEDS: BUMETANIDE 1 MG INJ IV (16:45)
[2017-11-10] MEDS: MONTELUKAST 10 MG TAB PO (21:09)
[2017-11-10] MEDS: MIRTAZAPINE 15 MG TAB PO (21:20)
[2017-11-11] MEDS: ACCU-CHEK XX (02:00)
[2017-11-11] MEDS: SUCRALFATE 1 GM TAB PO ×4 (06:26→21:15)
[2017-11-11] MEDS: PANTOPRAZOLE 40 MG INJ IV (06:26)
[2017-11-11 06:46] LABS: ADD MAN DIFF? NO
[2017-11-11 06:52] LABS: BASOPHIL # 0.2 10^3/ul (0.0-0.1); BASOPHILS % 1.6 % (0.0-2.0); EOSINOPHILS # 0.5 10^3/ul (0.0-0.5); EOSINOPHILS % 5.1 % (0.0-7.0); HEMOGLOBIN 7.2 g/dl (12.0-16.0); LYMPHOCYTES % 11.1 % (15.0-51.0); MEAN CORPUSCULAR VOLUME 96.8 fl (82.0-101.0); MEAN PLATELET VOLUME 10.7 fl (7.4-10.4); MONOCYTE # 1.3 10^3/ul (0.3-0.9); NEUTROPHIL # 6.2 10^3/ul (1.6-7.5); NUCLEATED RED BLOOD CELLS # 0.2 10^3/ul (0.0-0.0); PLATELET COUNT 129 10^3/UL (140-415); RED BLOOD COUNT 2.48 10^6/ul (4.20-5.40); RED CELL DISTRIBUTION WIDTH 18.4 % (11.5-14.5)
[2017-11-11 06:52] LABS: WHITE BLOOD COUNT 9.4 10^3/ul (4.8-10.8)
[2017-11-11 07:18] LABS: ANION GAP 10 (8-16); BLOOD UREA NITROGEN 70 mg/dl (7-20); CARBON DIOXIDE 34 mmol/L (21-31); CHLORIDE 99 mmol/L (97-110); CREATININE 1.44 mg/dl (0.44-1.00); GLUCOSE 144 mg/dl (70-220); POTASSIUM 5.2 mmol/L (3.5-5.1); SODIUM 138 mmol/L (135-144)
[2017-11-11] MEDS: INSULIN ASPART [NOVOLOG] 3 ML PEN SC ×7 (08:00→21:46)
[2017-11-11] MEDS: ALBUTEROL/IPRATROPIUM (NEB) 3 ML AMP HHN ×3 (08:32→19:51)
[2017-11-11] MEDS: RANITIDINE 150 MG TAB PO ×2 (09:04→21:16)
[2017-11-11] MEDS: L ACIDOPHIL/B LACTIS/B LONGUM CAPSULE PO ×2 (09:04→21:16)
[2017-11-11] MEDS: RIFAXIMIN 550 MG TAB PO ×2 (09:04→21:16)
[2017-11-11] MEDS: BUMETANIDE 1 MG TAB PO (09:04)
[2017-11-11] MEDS: AMLODIPINE 5 MG TAB PO ×2 (09:05→21:16)
[2017-11-11] MEDS: MAGNESIUM OXIDE 400 MG TAB PO ×2 (09:05→21:16)
[2017-11-11] MEDS: LACTULOSE 30ML CUP PO ×2 (09:05→21:15)
[2017-11-11] MEDS: NYSTATIN 30 GM POWDER BTL TOP ×2 (09:08→21:25)
[2017-11-11] MEDS: FLUTICASONE 0.05% 16 GM NAS SPRAY NASAL ×2 (09:08→21:25)
[2017-11-11] MEDS: FLUTICASONE/VILANTEROL 200-25 INH DEVICE INH (09:08)
[2017-11-11] MEDS: INSULIN DETEMIR [LEVEMIR] (100 UNITS/ML) SYG SC ×2 (09:21→21:25)
[2017-11-11 11:39] LABS: IMMEDIATE SPIN CROSSMATCH 1 2
[2017-11-11] MEDS: NYSTATIN/TRIAMCINOLONE 15 GM CR TOP (11:50)
[2017-11-11] MEDS: SILVER SULFADIAZINE 1% 25 GM CR TOP (11:50)
[2017-11-11] MEDS: ACETAMINOPHEN 500 MG TAB PO (11:51)
[2017-11-11] MEDS: SACCHAROMYCES BOULARDII 250 MG CAP PO ×2 (11:51→21:16)
[2017-11-11] MEDS: DIPHENHYDRAMINE 50 MG INJ IV (11:51)
[2017-11-11] MEDS: BUMETANIDE 1 MG INJ IV (16:19)
[2017-11-11] MEDS: EPOETIN 10000 UNITS/ML (NON ESRD/NON ONCOLOGY) SC (18:25)
[2017-11-11] MEDS: MONTELUKAST 10 MG TAB PO (21:15)
[2017-11-11] MEDS: MIRTAZAPINE 15 MG TAB PO (21:17)
[2017-11-12] MEDS: ACCU-CHEK XX (01:55)
[2017-11-12] MEDS: PANTOPRAZOLE 40 MG INJ IV (05:53)
[2017-11-12 07:06] LABS: ADD MAN DIFF? NO
[2017-11-12 07:10] LABS: BASOPHIL # 0.1 10^3/ul (0.0-0.1); EOSINOPHILS # 0.6 10^3/ul (0.0-0.5); EOSINOPHILS % 5.3 % (0.0-7.0); HEMATOCRIT 26.8 % (37.0-47.0); HEMOGLOBIN 8.8 g/dl (12.0-16.0); LYMPHOCYTES # 1.3 10^3/ul (0.8-2.9); MEAN CORPUSCULAR HEMOGLOBIN 30.6 pg (29.0-33.0); MEAN CORPUSCULAR HGB CONC 32.8 g/dl (32.0-37.0); MEAN CORPUSCULAR VOLUME 93.1 fl (82.0-101.0); MEAN PLATELET VOLUME 10.8 fl (7.4-10.4); MONOCYTE # 1.5 10^3/ul (0.3-0.9); MONOCYTES % 12.5 % (0.0-11.0); NEUTROPHILS % 67.8 % (39.0-77.0); NUCLEATED RED BLOOD CELLS # 0.3 10^3/ul (0.0-0.0); NUCLEATED RED BLOOD CELLS% 2.5 /100WBC (0.0-0.0); PLATELET COUNT 126 10^3/UL (140-415); RED BLOOD COUNT 2.88 10^6/ul (4.20-5.40); RED CELL DISTRIBUTION WIDTH 17.4 % (11.5-14.5)
[2017-11-12 07:10] LABS: WHITE BLOOD COUNT 11.8 10^3/ul (4.8-10.8)
[2017-11-12] MEDS: SUCRALFATE 1 GM TAB PO ×4 (07:17→21:12)
[2017-11-12] MEDS: ALBUTEROL/IPRATROPIUM (NEB) 3 ML AMP HHN ×3 (07:47→20:17)
[2017-11-12 07:51] LABS: ALANINE AMINOTRANSFERASE 55 IU/L (13-69); ALBUMIN 2.2 g/dl (3.3-4.9); ALBUMIN/GLOBULIN RATIO 0.68; ALKALINE PHOSPHATASE 256 IU/L (42-121); ANION GAP 11 (8-16); ASPARTATE AMINO TRANSFERASE 95 IU/L (15-46); BILIRUBIN,INDIRECT 0.7 mg/dl (0-1.1); BILIRUBIN,TOTAL 0.7 mg/dl (0.2-1.3); BLOOD UREA NITROGEN 87 mg/dl (7-20); CALCIUM 8.6 mg/dl (8.4-10.2); CARBON DIOXIDE 32 mmol/L (21-31); CHLORIDE 99 mmol/L (97-110); CREATININE 1.36 mg/dl (0.44-1.00); GLUCOSE 166 mg/dl (70-220); MAGNESIUM 2.1 mg/dl (1.7-2.5); POTASSIUM 4.7 mmol/L (3.5-5.1); SODIUM 137 mmol/L (135-144); TOTAL PROTEIN 5.4 g/dl (6.1-8.1)
[2017-11-12 08:52] LABS: AMMONIA 209 umol/l (9-30)
[2017-11-12] MEDS: SILVER SULFADIAZINE 1% 25 GM CR TOP (09:00)
[2017-11-12] MEDS: LACTULOSE 30ML CUP PO ×2 (09:25→21:03)
[2017-11-12] MEDS: SACCHAROMYCES BOULARDII 250 MG CAP PO ×2 (09:25→20:54)
[2017-11-12] MEDS: RANITIDINE 150 MG TAB PO ×2 (09:25→21:02)
[2017-11-12] MEDS: L ACIDOPHIL/B LACTIS/B LONGUM CAPSULE PO ×2 (09:25→21:02)
[2017-11-12] MEDS: RIFAXIMIN 550 MG TAB PO ×2 (09:25→21:02)
[2017-11-12] MEDS: MAGNESIUM OXIDE 400 MG TAB PO ×2 (09:25→20:54)
[2017-11-12] MEDS: AMLODIPINE 5 MG TAB PO ×2 (09:26→21:07)
[2017-11-12] MEDS: FLUTICASONE/VILANTEROL 200-25 INH DEVICE INH (09:27)
[2017-11-12] MEDS: NYSTATIN/TRIAMCINOLONE 15 GM CR TOP (09:27)
[2017-11-12] MEDS: NYSTATIN 30 GM POWDER BTL TOP ×2 (09:27→21:04)
[2017-11-12] MEDS: FLUTICASONE 0.05% 16 GM NAS SPRAY NASAL ×2 (09:27→21:04)
[2017-11-12] MEDS: INSULIN ASPART [NOVOLOG] 3 ML PEN SC ×7 (09:46→21:00)
[2017-11-12] MEDS: INSULIN DETEMIR [LEVEMIR] (100 UNITS/ML) SYG SC ×2 (09:46→21:01)
[2017-11-12] MEDS: BUMETANIDE 1 MG INJ IV (10:13)
[2017-11-12] MEDS: BUMETANIDE 1 MG TAB PO (13:31)
[2017-11-12] MEDS: MIRTAZAPINE 15 MG TAB PO (20:56)
[2017-11-12] MEDS: MONTELUKAST 10 MG TAB PO (21:02)
[2017-11-12 21:07] LABS: HEMATOCRIT 25.8 % (37.0-47.0); HEMOGLOBIN 8.3 g/dl (12.0-16.0)
[2017-11-13] MEDS: ACCU-CHEK XX (02:31)
[2017-11-13] MEDS: SUCRALFATE 1 GM TAB PO ×4 (06:15→21:23)
[2017-11-13] MEDS: PANTOPRAZOLE 40 MG INJ IV (06:15)
[2017-11-13 07:04] LABS: ADD MAN DIFF? NO
[2017-11-13 07:15] LABS: BASOPHIL # 0.1 10^3/ul (0.0-0.1); BASOPHILS % 1.2 % (0.0-2.0); EOSINOPHILS # 0.5 10^3/ul (0.0-0.5); EOSINOPHILS % 4.7 % (0.0-7.0); HEMOGLOBIN 7.9 g/dl (12.0-16.0); LYMPHOCYTES # 1.4 10^3/ul (0.8-2.9); LYMPHOCYTES % 14.3 % (15.0-51.0); MEAN CORPUSCULAR HEMOGLOBIN 29.6 pg (29.0-33.0); MEAN CORPUSCULAR HGB CONC 31.6 g/dl (32.0-37.0); MEAN CORPUSCULAR VOLUME 93.6 fl (82.0-101.0); MONOCYTE # 1.3 10^3/ul (0.3-0.9); MONOCYTES % 13.5 % (0.0-11.0); NEUTROPHIL # 6.2 10^3/ul (1.6-7.5); NEUTROPHILS % 64.9 % (39.0-77.0); NUCLEATED RED BLOOD CELLS # 0.2 10^3/ul (0.0-0.0); NUCLEATED RED BLOOD CELLS% 1.8 /100WBC (0.0-0.0); PLATELET COUNT 114 10^3/UL (140-415); RED BLOOD COUNT 2.67 10^6/ul (4.20-5.40); RED CELL DISTRIBUTION WIDTH 17.9 % (11.5-14.5)
[2017-11-13 07:15] LABS: WHITE BLOOD COUNT 9.6 10^3/ul (4.8-10.8)
[2017-11-13 07:44] LABS: AMMONIA 65 umol/l (9-30)
[2017-11-13] MEDS: INSULIN ASPART [NOVOLOG] 3 ML PEN SC ×7 (08:00→21:00)
[2017-11-13] MEDS: ALBUTEROL/IPRATROPIUM (NEB) 3 ML AMP HHN ×3 (08:07→21:43)
[2017-11-13] MEDS: INSULIN DETEMIR [LEVEMIR] (100 UNITS/ML) SYG SC ×2 (08:30→21:30)
[2017-11-13] MEDS: FLUTICASONE 0.05% 16 GM NAS SPRAY NASAL ×2 (08:34→21:24)
[2017-11-13] MEDS: NYSTATIN 30 GM POWDER BTL TOP ×2 (08:38→21:24)
[2017-11-13] MEDS: FLUTICASONE/VILANTEROL 200-25 INH DEVICE INH (08:38)
[2017-11-13] MEDS: RANITIDINE 150 MG TAB PO ×2 (08:39→21:24)
[2017-11-13] MEDS: L ACIDOPHIL/B LACTIS/B LONGUM CAPSULE PO ×2 (08:39→21:24)
[2017-11-13] MEDS: LACTULOSE 30ML CUP PO ×2 (08:39→21:24)
[2017-11-13] MEDS: RIFAXIMIN 550 MG TAB PO ×2 (08:40→22:25)
[2017-11-13] MEDS: MAGNESIUM OXIDE 400 MG TAB PO ×2 (08:40→21:24)
[2017-11-13] MEDS: BUMETANIDE 1 MG TAB PO (08:40)
[2017-11-13] MEDS: AMLODIPINE 5 MG TAB PO ×2 (08:40→21:24)
[2017-11-13] MEDS: SACCHAROMYCES BOULARDII 250 MG CAP PO ×2 (08:40→21:24)
[2017-11-13 08:42] LABS: ALANINE AMINOTRANSFERASE 50 IU/L (13-69); ALBUMIN 2.1 g/dl (3.3-4.9); ALKALINE PHOSPHATASE 242 IU/L (42-121); ANION GAP 10 (8-16); ASPARTATE AMINO TRANSFERASE 105 IU/L (15-46); BILIRUBIN,INDIRECT 0.4 mg/dl (0-1.1); BILIRUBIN,TOTAL 0.4 mg/dl (0.2-1.3); BLOOD UREA NITROGEN 89 mg/dl (7-20); CALCIUM 8.8 mg/dl (8.4-10.2); CARBON DIOXIDE 33 mmol/L (21-31); CHLORIDE 99 mmol/L (97-110); CREATININE 1.34 mg/dl (0.44-1.00); GLUCOSE 155 mg/dl (70-220); MAGNESIUM 2.3 mg/dl (1.7-2.5); POTASSIUM 4.4 mmol/L (3.5-5.1); SODIUM 138 mmol/L (135-144); TOTAL PROTEIN 5.1 g/dl (6.1-8.1)
[2017-11-13] MEDS: NYSTATIN/TRIAMCINOLONE 15 GM CR TOP (08:43)
[2017-11-13] MEDS: SILVER SULFADIAZINE 1% 25 GM CR TOP ×2 (08:44→08:51)
[2017-11-13 12:07] LABS: ADD MAN DIFF? NO
[2017-11-13 12:11] LABS: BASOPHIL # 0.1 10^3/ul (0.0-0.1); BASOPHILS % 1.2 % (0.0-2.0); EOSINOPHILS # 0.4 10^3/ul (0.0-0.5); HEMATOCRIT 26.7 % (37.0-47.0); HEMOGLOBIN 8.6 g/dl (12.0-16.0); LYMPHOCYTES # 1.4 10^3/ul (0.8-2.9); LYMPHOCYTES % 14.6 % (15.0-51.0); MEAN CORPUSCULAR HEMOGLOBIN 30.5 pg (29.0-33.0); MEAN CORPUSCULAR HGB CONC 32.2 g/dl (32.0-37.0); MEAN CORPUSCULAR VOLUME 94.7 fl (82.0-101.0); MEAN PLATELET VOLUME 10.7 fl (7.4-10.4); MONOCYTE # 1.3 10^3/ul (0.3-0.9); MONOCYTES % 13.2 % (0.0-11.0); NEUTROPHIL # 6.4 10^3/ul (1.6-7.5); NEUTROPHILS % 65.5 % (39.0-77.0); NUCLEATED RED BLOOD CELLS # 0.2 10^3/ul (0.0-0.0); NUCLEATED RED BLOOD CELLS% 1.8 /100WBC (0.0-0.0); PLATELET COUNT 125 10^3/UL (140-415); RED BLOOD COUNT 2.82 10^6/ul (4.20-5.40); RED CELL DISTRIBUTION WIDTH 17.6 % (11.5-14.5)
[2017-11-13 12:11] LABS: WHITE BLOOD COUNT 9.8 10^3/ul (4.8-10.8)
[2017-11-13] MEDS: EPOETIN 10000 UNITS/ML (NON ESRD/NON ONCOLOGY) SC (18:00)
[2017-11-13] MEDS: ACETAMINOPHEN 325 MG TAB PO (18:06)
[2017-11-13] MEDS: MONTELUKAST 10 MG TAB PO (21:23)
[2017-11-14] MEDS: ACCU-CHEK XX (00:58)
[2017-11-14 05:40] LABS: ADD MAN DIFF? NO
[2017-11-14 05:42] LABS: BASOPHIL # 0.1 10^3/ul (0.0-0.1); EOSINOPHILS # 0.4 10^3/ul (0.0-0.5); EOSINOPHILS % 4.5 % (0.0-7.0); HEMATOCRIT 24.9 % (37.0-47.0); HEMOGLOBIN 7.8 g/dl (12.0-16.0); LYMPHOCYTES # 0.9 10^3/ul (0.8-2.9); LYMPHOCYTES % 11.7 % (15.0-51.0); MEAN CORPUSCULAR HGB CONC 31.3 g/dl (32.0-37.0); MEAN CORPUSCULAR VOLUME 95.8 fl (82.0-101.0); MONOCYTES % 12.4 % (0.0-11.0); NEUTROPHIL # 5.4 10^3/ul (1.6-7.5); NEUTROPHILS % 69.1 % (39.0-77.0); NUCLEATED RED BLOOD CELLS # 0.2 10^3/ul (0.0-0.0); NUCLEATED RED BLOOD CELLS% 2.4 /100WBC (0.0-0.0); PLATELET COUNT 119 10^3/UL (140-415); RED CELL DISTRIBUTION WIDTH 17.7 % (11.5-14.5)
[2017-11-14 05:42] LABS: WHITE BLOOD COUNT 7.8 10^3/ul (4.8-10.8)
[2017-11-14] MEDS: PANTOPRAZOLE 40 MG INJ IV (05:48)
[2017-11-14] MEDS: SUCRALFATE 1 GM TAB PO ×4 (05:48→20:41)
[2017-11-14 06:15] LABS: AMMONIA 85 umol/l (9-30)
[2017-11-14 06:32] LABS: ALANINE AMINOTRANSFERASE 61 IU/L (13-69); ALBUMIN 2.1 g/dl (3.3-4.9); ALBUMIN/GLOBULIN RATIO 0.65; ALKALINE PHOSPHATASE 252 IU/L (42-121); ANION GAP 12 (8-16); ASPARTATE AMINO TRANSFERASE 122 IU/L (15-46); BILIRUBIN,INDIRECT 0.4 mg/dl (0-1.1); BILIRUBIN,TOTAL 0.4 mg/dl (0.2-1.3); BLOOD UREA NITROGEN 90 mg/dl (7-20); CALCIUM 8.8 mg/dl (8.4-10.2); CARBON DIOXIDE 33 mmol/L (21-31); CHLORIDE 97 mmol/L (97-110); CREATININE 1.44 mg/dl (0.44-1.00); GLUCOSE 131 mg/dl (70-220); MAGNESIUM 2.3 mg/dl (1.7-2.5); POTASSIUM 4.5 mmol/L (3.5-5.1); SODIUM 137 mmol/L (135-144); TOTAL PROTEIN 5.3 g/dl (6.1-8.1)
[2017-11-14] MEDS: INSULIN ASPART [NOVOLOG] 3 ML PEN SC ×7 (08:00→21:00)
[2017-11-14] MEDS: LACTULOSE 30ML CUP PO ×2 (08:12→20:43)
[2017-11-14] MEDS: AMLODIPINE 5 MG TAB PO ×2 (08:13→20:42)
[2017-11-14] MEDS: MAGNESIUM OXIDE 400 MG TAB PO ×2 (08:13→20:42)
[2017-11-14] MEDS: SACCHAROMYCES BOULARDII 250 MG CAP PO ×2 (08:13→20:41)
[2017-11-14] MEDS: L ACIDOPHIL/B LACTIS/B LONGUM CAPSULE PO ×2 (08:13→20:41)
[2017-11-14] MEDS: BUMETANIDE 1 MG TAB PO (08:13)
[2017-11-14] MEDS: RANITIDINE 150 MG TAB PO ×2 (08:13→20:41)
[2017-11-14] MEDS: SILVER SULFADIAZINE 1% 25 GM CR TOP (08:14)
[2017-11-14] MEDS: FLUTICASONE 0.05% 16 GM NAS SPRAY NASAL ×2 (08:14→20:43)
[2017-11-14] MEDS: NYSTATIN/TRIAMCINOLONE 15 GM CR TOP (08:14)
[2017-11-14] MEDS: RIFAXIMIN 550 MG TAB PO ×2 (08:14→20:41)
[2017-11-14] MEDS: FLUTICASONE/VILANTEROL 200-25 INH DEVICE INH (08:15)
[2017-11-14] MEDS: NYSTATIN 30 GM POWDER BTL TOP ×2 (08:16→20:44)
[2017-11-14] MEDS: ALBUTEROL/IPRATROPIUM (NEB) 3 ML AMP HHN ×3 (08:26→20:15)
[2017-11-14] MEDS: BUMETANIDE 1 MG INJ IV (09:23)
[2017-11-14] MEDS: INSULIN DETEMIR [LEVEMIR] (100 UNITS/ML) SYG SC ×2 (09:30→20:45)
[2017-11-14 12:13] LABS: ADD MAN DIFF? NO
[2017-11-14 12:18] LABS: BASOPHIL # 0.1 10^3/ul (0.0-0.1); BASOPHILS % 1.4 % (0.0-2.0); EOSINOPHILS # 0.4 10^3/ul (0.0-0.5); EOSINOPHILS % 4.1 % (0.0-7.0); HEMATOCRIT 26.1 % (37.0-47.0); HEMOGLOBIN 8.2 g/dl (12.0-16.0); LYMPHOCYTES # 1.1 10^3/ul (0.8-2.9); LYMPHOCYTES % 12.1 % (15.0-51.0); MEAN CORPUSCULAR HEMOGLOBIN 29.6 pg (29.0-33.0); MEAN CORPUSCULAR HGB CONC 31.4 g/dl (32.0-37.0); MEAN CORPUSCULAR VOLUME 94.2 fl (82.0-101.0); MEAN PLATELET VOLUME 10.7 fl (7.4-10.4); MONOCYTE # 1.1 10^3/ul (0.3-0.9); MONOCYTES % 12.3 % (0.0-11.0); NEUTROPHIL # 6.1 10^3/ul (1.6-7.5); NEUTROPHILS % 68.3 % (39.0-77.0); NUCLEATED RED BLOOD CELLS # 0.2 10^3/ul (0.0-0.0); NUCLEATED RED BLOOD CELLS% 1.9 /100WBC (0.0-0.0); PLATELET COUNT 118 10^3/UL (140-415); RED BLOOD COUNT 2.77 10^6/ul (4.20-5.40); RED CELL DISTRIBUTION WIDTH 17.5 % (11.5-14.5)
[2017-11-14 12:18] LABS: WHITE BLOOD COUNT 8.9 10^3/ul (4.8-10.8)
[2017-11-14] MEDS: MONTELUKAST 10 MG TAB PO (22:21)
[2017-11-15] MEDS: ACCU-CHEK XX (01:40)
[2017-11-15 05:40] LABS: ADD MAN DIFF? NO
[2017-11-15 05:43] LABS: BASOPHIL # 0.1 10^3/ul (0.0-0.1); EOSINOPHILS # 0.3 10^3/ul (0.0-0.5); EOSINOPHILS % 3.4 % (0.0-7.0); HEMATOCRIT 23.9 % (37.0-47.0); HEMOGLOBIN 7.5 g/dl (12.0-16.0); LYMPHOCYTES # 1.1 10^3/ul (0.8-2.9); LYMPHOCYTES % 13.9 % (15.0-51.0); MEAN CORPUSCULAR HEMOGLOBIN 29.9 pg (29.0-33.0); MEAN CORPUSCULAR HGB CONC 31.4 g/dl (32.0-37.0); MEAN CORPUSCULAR VOLUME 95.2 fl (82.0-101.0); MEAN PLATELET VOLUME 10.9 fl (7.4-10.4); MONOCYTE # 0.9 10^3/ul (0.3-0.9); MONOCYTES % 10.8 % (0.0-11.0); NEUTROPHIL # 5.5 10^3/ul (1.6-7.5); NEUTROPHILS % 69.9 % (39.0-77.0); NUCLEATED RED BLOOD CELLS # 0.2 10^3/ul (0.0-0.0); NUCLEATED RED BLOOD CELLS% 1.9 /100WBC (0.0-0.0); PLATELET COUNT 107 10^3/UL (140-415); RED BLOOD COUNT 2.51 10^6/ul (4.20-5.40); RED CELL DISTRIBUTION WIDTH 17.7 % (11.5-14.5)
[2017-11-15 05:43] LABS: WHITE BLOOD COUNT 7.9 10^3/ul (4.8-10.8)
[2017-11-15 06:14] LABS: AMMONIA 46 umol/l (9-30)
[2017-11-15 06:18] LABS: ALANINE AMINOTRANSFERASE 58 IU/L (13-69); ALBUMIN 2.3 g/dl (3.3-4.9); ALBUMIN/GLOBULIN RATIO 0.74; ALKALINE PHOSPHATASE 245 IU/L (42-121); ANION GAP 10 (8-16); ASPARTATE AMINO TRANSFERASE 123 IU/L (15-46); BILIRUBIN,INDIRECT 0.5 mg/dl (0-1.1); BILIRUBIN,TOTAL 0.5 mg/dl (0.2-1.3); BLOOD UREA NITROGEN 93 mg/dl (7-20); CALCIUM 8.7 mg/dl (8.4-10.2); CARBON DIOXIDE 34 mmol/L (21-31); CHLORIDE 99 mmol/L (97-110); CREATININE 1.51 mg/dl (0.44-1.00); GLUCOSE 86 mg/dl (70-220); MAGNESIUM 2.4 mg/dl (1.7-2.5); POTASSIUM 4.5 mmol/L (3.5-5.1); SODIUM 138 mmol/L (135-144); TOTAL PROTEIN 5.4 g/dl (6.1-8.1)
[2017-11-15] MEDS: PANTOPRAZOLE 40 MG INJ IV ×2 (06:26→17:54)
[2017-11-15] MEDS: SUCRALFATE 1 GM TAB PO ×4 (06:26→20:27)
[2017-11-15] MEDS ORDERED: LIDOCAINE 2% (SDV) 5 ML INJ (07:00)
[2017-11-15] MEDS: INSULIN ASPART [NOVOLOG] 3 ML PEN SC ×7 (08:00→20:39)
[2017-11-15] MEDS: ALBUTEROL/IPRATROPIUM (NEB) 3 ML AMP HHN ×3 (08:24→20:43)
[2017-11-15] MEDS: INSULIN DETEMIR [LEVEMIR] (100 UNITS/ML) SYG SC ×2 (08:39→20:39)
[2017-11-15] MEDS: LACTULOSE 30ML CUP PO ×2 (08:41→20:29)
[2017-11-15] MEDS: L ACIDOPHIL/B LACTIS/B LONGUM CAPSULE PO ×2 (08:41→20:26)
[2017-11-15] MEDS: RIFAXIMIN 550 MG TAB PO ×2 (08:41→20:26)
[2017-11-15] MEDS: RANITIDINE 150 MG TAB PO ×2 (08:41→20:26)
[2017-11-15] MEDS: BUMETANIDE 1 MG TAB PO (08:41)
[2017-11-15] MEDS: SACCHAROMYCES BOULARDII 250 MG CAP PO ×2 (08:41→20:26)
[2017-11-15] MEDS: FLUTICASONE/VILANTEROL 200-25 INH DEVICE INH (08:43)
[2017-11-15] MEDS: AMLODIPINE 5 MG TAB PO ×2 (08:43→20:29)
[2017-11-15] MEDS: FLUTICASONE 0.05% 16 GM NAS SPRAY NASAL ×2 (08:43→20:28)
[2017-11-15] MEDS: NYSTATIN/TRIAMCINOLONE 15 GM CR TOP (08:44)
[2017-11-15] MEDS: NYSTATIN 30 GM POWDER BTL TOP ×2 (08:44→20:40)
[2017-11-15] MEDS: SILVER SULFADIAZINE 1% 25 GM CR TOP (09:00)
[2017-11-15] MEDS: DIPHENHYDRAMINE 50 MG INJ IV (10:54)
[2017-11-15] MEDS: ACETAMINOPHEN 500 MG TAB PO (10:54)
[2017-11-15 11:06] LABS: IMMEDIATE SPIN CROSSMATCH 1 2
[2017-11-15 14:43] LABS: AADO2 Arterial 72.3 mmHg (7.0-24.0); Arterial Base Excess 3.5 mmol/L (-3.0-3); Arterial Blood Gas Oxygen Sat 95.2 mmHG (95.0-100.0); Arterial COHb 0.2 % (0.0-3.0); Arterial Fraction of Oxyhgb 94.7 % (93.0-99.0); Arterial HCO3 29.5 mmol/L (22.0-26.0); Arterial MetHb 0.3 % (0.0-1.5); Arterial Total Hemglobin 10.3 g/dl (12.0-18.0); Arterial pCO2 51.9 mmhg (35-45); Blood Gas IEPAP 15/5; Blood Gas PS 10; MODE MASK - BIPAP; Site LB
[2017-11-15] MEDS ORDERED: PROPOFOL 40 ML (15:59)
[2017-11-15] MEDS ORDERED: KETOROLAC 30 MG INJ IV (17:00)
[2017-11-15] MEDS ORDERED: EPHEDrine SULFATE 50 MG/5 ML SYG IV (17:00)
[2017-11-15] MEDS ORDERED: morphine (1 MG/ML) 10ML SYRINGE IV (17:00)
[2017-11-15] MEDS ORDERED: ALBUTEROL 0.083% (NEB) 2.5 MG/3 ML AMP HHN (17:00)
[2017-11-15] MEDS ORDERED: ONDANSETRON 4 MG INJ IV (17:00)
[2017-11-15] MEDS ORDERED: hydrALAzine 20 MG INJ IV (17:00)
[2017-11-15] MEDS ORDERED: METOCLOPRAMIDE 10 MG INJ IV (17:00)
[2017-11-15] MEDS: EPOETIN 10000 UNITS/ML (NON ESRD/NON ONCOLOGY) SC (17:54)
[2017-11-15] MEDS: MONTELUKAST 10 MG TAB PO (20:26)
[2017-11-16] MEDS: BUMETANIDE 1 MG INJ IV (01:00)
[2017-11-16] MEDS: ALBUTEROL/IPRATROPIUM (NEB) 3 ML AMP HHN ×4 (03:01→21:33)
[2017-11-16] MEDS: PANTOPRAZOLE 40 MG INJ IV ×2 (05:52→17:38)
[2017-11-16 06:11] LABS: ADD MAN DIFF? NO
[2017-11-16 06:15] LABS: WHITE BLOOD COUNT 8.6 10^3/ul (4.8-10.8)
[2017-11-16 06:15] LABS: BASOPHIL # 0.1 10^3/ul (0.0-0.1); BASOPHILS % 1.2 % (0.0-2.0); EOSINOPHILS # 0.3 10^3/ul (0.0-0.5); HEMATOCRIT 33.2 % (37.0-47.0); HEMOGLOBIN 10.6 g/dl (12.0-16.0); LYMPHOCYTES % 11.6 % (15.0-51.0); MEAN CORPUSCULAR HEMOGLOBIN 29.9 pg (29.0-33.0); MEAN CORPUSCULAR HGB CONC 31.9 g/dl (32.0-37.0); MEAN CORPUSCULAR VOLUME 93.8 fl (82.0-101.0); MEAN PLATELET VOLUME 11.2 fl (7.4-10.4); MONOCYTE # 1.2 10^3/ul (0.3-0.9); MONOCYTES % 14.3 % (0.0-11.0); NEUTROPHIL # 5.9 10^3/ul (1.6-7.5); NEUTROPHILS % 68.6 % (39.0-77.0); NUCLEATED RED BLOOD CELLS # 0.2 10^3/ul (0.0-0.0); NUCLEATED RED BLOOD CELLS% 2.2 /100WBC (0.0-0.0); PLATELET COUNT 113 10^3/UL (140-415); RED BLOOD COUNT 3.54 10^6/ul (4.20-5.40)
[2017-11-16 06:32] LABS: AMMONIA 41 umol/l (9-30)
[2017-11-16 06:39] LABS: ALANINE AMINOTRANSFERASE 60 IU/L (13-69); ALBUMIN 2.7 g/dl (3.3-4.9); ALBUMIN/GLOBULIN RATIO 0.69; ALKALINE PHOSPHATASE 268 IU/L (42-121); ANION GAP 13 (8-16); ASPARTATE AMINO TRANSFERASE 127 IU/L (15-46); BILIRUBIN,INDIRECT 0.9 mg/dl (0-1.1); BILIRUBIN,TOTAL 0.9 mg/dl (0.2-1.3); BLOOD UREA NITROGEN 92 mg/dl (7-20); CALCIUM 8.8 mg/dl (8.4-10.2); CARBON DIOXIDE 32 mmol/L (21-31); CHLORIDE 98 mmol/L (97-110); CREATININE 1.64 mg/dl (0.44-1.00); GLUCOSE 104 mg/dl (70-220); MAGNESIUM 2.4 mg/dl (1.7-2.5); POTASSIUM 4.5 mmol/L (3.5-5.1); SODIUM 138 mmol/L (135-144); TOTAL PROTEIN 6.6 g/dl (6.1-8.1)
[2017-11-16] MEDS: INSULIN ASPART [NOVOLOG] 3 ML PEN SC ×3 (08:00→17:40)
[2017-11-16] MEDS: INSULIN DETEMIR [LEVEMIR] (100 UNITS/ML) SYG SC ×2 (08:00→20:00)
[2017-11-16] MEDS: SUCRALFATE 1 GM TAB PO ×4 (09:15→21:09)
[2017-11-16] MEDS: L ACIDOPHIL/B LACTIS/B LONGUM CAPSULE PO ×2 (09:15→21:09)
[2017-11-16] MEDS: RANITIDINE 150 MG TAB PO ×2 (09:15→21:09)
[2017-11-16] MEDS: SACCHAROMYCES BOULARDII 250 MG CAP PO ×2 (09:16→21:09)
[2017-11-16] MEDS: RIFAXIMIN 550 MG TAB PO ×2 (09:16→21:09)
[2017-11-16] MEDS: BUMETANIDE 1 MG TAB PO (09:16)
[2017-11-16] MEDS: AMLODIPINE 5 MG TAB PO (09:17)
[2017-11-16] MEDS: NYSTATIN 30 GM POWDER BTL TOP ×2 (09:17→21:09)
[2017-11-16] MEDS: SILVER SULFADIAZINE 1% 25 GM CR TOP (09:18)
[2017-11-16] MEDS: LACTULOSE 30ML CUP PO ×2 (09:18→21:09)
[2017-11-16] MEDS: FLUTICASONE/VILANTEROL 200-25 INH DEVICE INH (09:18)
[2017-11-16] MEDS: FLUTICASONE 0.05% 16 GM NAS SPRAY NASAL ×2 (09:18→21:09)
[2017-11-16] MEDS: LORAZEPAM 1 MG TAB PO ×2 (12:03→17:37)
[2017-11-16] MEDS: BUPROPION (SR) 150 MG TAB PO (21:09)
[2017-11-16] MEDS: MONTELUKAST 10 MG TAB PO (21:09)
[2017-11-17] MEDS: PANTOPRAZOLE 40 MG INJ IV ×2 (05:52→17:34)
[2017-11-17 06:49] LABS: ADD MAN DIFF? NO
[2017-11-17 06:58] LABS: ABNORMAL IP MESSAGE 1; BASOPHIL # 0.1 10^3/ul (0.0-0.1); BASOPHILS % 1.1 % (0.0-2.0); EOSINOPHILS # 0.1 10^3/ul (0.0-0.5); EOSINOPHILS % 1.8 % (0.0-7.0); HEMATOCRIT 32.1 % (37.0-47.0); HEMOGLOBIN 10.4 g/dl (12.0-16.0); LYMPHOCYTES # 0.8 10^3/ul (0.8-2.9); LYMPHOCYTES % 10.8 % (15.0-51.0); MEAN CORPUSCULAR HEMOGLOBIN 30.8 pg (29.0-33.0); MEAN CORPUSCULAR HGB CONC 32.4 g/dl (32.0-37.0); MEAN PLATELET VOLUME 10.9 fl (7.4-10.4); MONOCYTE # 1.1 10^3/ul (0.3-0.9); MONOCYTES % 14.7 % (0.0-11.0); NEUTROPHIL # 5.1 10^3/ul (1.6-7.5); NEUTROPHILS % 70.4 % (39.0-77.0); NUCLEATED RED BLOOD CELLS # 0.1 10^3/ul (0.0-0.0); NUCLEATED RED BLOOD CELLS% 1.7 /100WBC (0.0-0.0); PLATELET COUNT 93 10^3/UL (140-415); RED BLOOD COUNT 3.38 10^6/ul (4.20-5.40); RED CELL DISTRIBUTION WIDTH 17.1 % (11.5-14.5)
[2017-11-17 06:58] LABS: WHITE BLOOD COUNT 7.2 10^3/ul (4.8-10.8)
[2017-11-17 07:12] LABS: POSITIVE DIFF @See below
[2017-11-17 07:21] LABS: MAGNESIUM 2.5 mg/dl (1.7-2.5)
[2017-11-17 07:22] LABS: ALANINE AMINOTRANSFERASE 59 IU/L (13-69); ALBUMIN 2.9 g/dl (3.3-4.9); ALKALINE PHOSPHATASE 266 IU/L (42-121); ANION GAP 12 (8-16); ASPARTATE AMINO TRANSFERASE 116 IU/L (15-46); BILIRUBIN,INDIRECT 0.6 mg/dl (0-1.1); BILIRUBIN,TOTAL 0.6 mg/dl (0.2-1.3); BLOOD UREA NITROGEN 95 mg/dl (7-20); CARBON DIOXIDE 31 mmol/L (21-31); CHLORIDE 99 mmol/L (97-110); CREATININE 1.81 mg/dl (0.44-1.00); GLUCOSE 150 mg/dl (70-220); POTASSIUM 4.7 mmol/L (3.5-5.1); SODIUM 137 mmol/L (135-144); TOTAL PROTEIN 6.5 g/dl (6.1-8.1)
[2017-11-17 07:29] LABS: B-TYPE NATRIURETIC PEPTIDE 825 PG/ML (0-125)
[2017-11-17] MEDS: SUCRALFATE 1 GM TAB PO ×4 (08:09→20:47)
[2017-11-17] MEDS: INSULIN DETEMIR [LEVEMIR] (100 UNITS/ML) SYG SC (08:17)
[2017-11-17] MEDS: INSULIN ASPART [NOVOLOG] 3 ML PEN SC ×4 (08:17→17:55)
[2017-11-17] MEDS: ALBUTEROL/IPRATROPIUM (NEB) 3 ML AMP HHN ×3 (08:30→20:13)
[2017-11-17] MEDS: FLUTICASONE/VILANTEROL 200-25 INH DEVICE INH (09:00)
[2017-11-17] MEDS: FLUTICASONE 0.05% 16 GM NAS SPRAY NASAL ×2 (09:00→20:49)
[2017-11-17] MEDS: LACTULOSE 30ML CUP PO ×2 (09:56→20:46)
[2017-11-17] MEDS: RANITIDINE 150 MG TAB PO ×2 (09:57→20:48)
[2017-11-17] MEDS: SACCHAROMYCES BOULARDII 250 MG CAP PO ×2 (09:57→20:47)
[2017-11-17] MEDS: BUPROPION (SR) 150 MG TAB PO ×2 (09:58→20:46)
[2017-11-17] MEDS: RIFAXIMIN 550 MG TAB PO ×2 (09:58→20:48)
[2017-11-17] MEDS: BUMETANIDE 1 MG TAB PO (09:59)
[2017-11-17] MEDS: L ACIDOPHIL/B LACTIS/B LONGUM CAPSULE PO ×2 (09:59→20:46)
[2017-11-17] MEDS: AMLODIPINE 5 MG TAB PO (10:03)
[2017-11-17] MEDS: NYSTATIN 30 GM POWDER BTL TOP ×2 (10:09→20:48)
[2017-11-17] MEDS: SILVER SULFADIAZINE 1% 25 GM CR TOP (10:11)
[2017-11-17] MEDS: LORAZEPAM 1 MG TAB PO ×2 (14:03→20:47)
[2017-11-17] MEDS: MONTELUKAST 10 MG TAB PO (20:47)
[2017-11-17] MEDS: FUROSEMIDE 40 MG INJ IV (22:05)
[2017-11-17 22:29] LABS: AADO2 Arterial 282.9 mmHg (7.0-24.0); Allen Test ACCEPTAB; Arterial Base Excess 2.7 mmol/L (-3.0-3); Arterial Blood Gas Oxygen Sat 85.8 mmHG (95.0-100.0); Arterial COHb 0.8 % (0.0-3.0); Arterial Fraction of Oxyhgb 84.8 % (93.0-99.0); Arterial MetHb 0.4 % (0.0-1.5); Arterial Total Hemglobin 10.9 g/dl (12.0-18.0); Arterial pCO2 78.4 mmhg (35-45); Blood Gas IEPAP 15/5; Blood Gas PS 10; MODE MASK - BIPAP; Site Left Radial
[2017-11-17 23:37] LABS: AADO2 Arterial 554.1 mmHg (7.0-24.0); Allen Test ACCEPTAB; Arterial Base Excess 2.7 mmol/L (-3.0-3); Arterial COHb 0.7 % (0.0-3.0); Arterial HCO3 32.8 mmol/L (22.0-26.0); Arterial MetHb 0.4 % (0.0-1.5); Arterial Total Hemglobin 11.3 g/dl (12.0-18.0); Arterial pCO2 86.5 mmhg (35-45); Blood Gas IEPAP 18/8; Blood Gas PS 10; MODE MASK - BIPAP; Site Right Radial
[2017-11-18] MEDS ORDERED: PROPOFOL 100 ML (00:13)
[2017-11-18] MEDS: PROPOFOL 100 ML IV ×2 (00:21→10:21)
[2017-11-18 01:42] LABS: AADO2 Arterial 534.3 mmHg (7.0-24.0); Allen Test ACCEPTAB; Arterial Base Excess 0.7 mmol/L (-3.0-3); Arterial Blood Gas Oxygen Sat 98.6 mmHG (95.0-100.0); Arterial COHb 0.5 % (0.0-3.0); Arterial Fraction of Oxyhgb 97.8 % (93.0-99.0); Arterial HCO3 26.3 mmol/L (22.0-26.0); Arterial MetHb 0.3 % (0.0-1.5); Arterial Total Hemglobin 11.1 g/dl (12.0-18.0); Arterial pCO2 46.6 mmhg (35-45); MODE VENT - AC; Site Left Radial
[2017-11-18 06:08] LABS: ADD MAN DIFF? NO
[2017-11-18 06:12] LABS: ABNORMAL IP MESSAGE 1; BASOPHILS % 0.1 % (0.0-2.0); EOSINOPHILS % 0.3 % (0.0-7.0); HEMATOCRIT 28.5 % (37.0-47.0); HEMOGLOBIN 9.2 g/dl (12.0-16.0); LYMPHOCYTES # 0.5 10^3/ul (0.8-2.9); LYMPHOCYTES % 7.4 % (15.0-51.0); MEAN CORPUSCULAR HEMOGLOBIN 30.4 pg (29.0-33.0); MEAN CORPUSCULAR HGB CONC 32.3 g/dl (32.0-37.0); MEAN CORPUSCULAR VOLUME 94.1 fl (82.0-101.0); MEAN PLATELET VOLUME 11.7 fl (7.4-10.4); MONOCYTE # 0.3 10^3/ul (0.3-0.9); MONOCYTES % 4.6 % (0.0-11.0); NEUTROPHIL # 6.1 10^3/ul (1.6-7.5); NEUTROPHILS % 87.2 % (39.0-77.0); NUCLEATED RED BLOOD CELLS # 0.1 10^3/ul (0.0-0.0); RED BLOOD COUNT 3.03 10^6/ul (4.20-5.40)
[2017-11-18 06:24] LABS: POSITIVE DIFF @See below
[2017-11-18 06:25] LABS: PLATELET COUNT 75 10^3/UL (140-415)
[2017-11-18] MEDS: PANTOPRAZOLE 40 MG INJ IV ×2 (06:26→19:45)
[2017-11-18] MEDS: NORepinephrine 8MG/250 ML (PMX 250 ML IV (06:30)
[2017-11-18 06:40] LABS: B-TYPE NATRIURETIC PEPTIDE 925 PG/ML (0-125)
[2017-11-18 06:55] LABS: ALANINE AMINOTRANSFERASE 49 IU/L (13-69); ALBUMIN 2.5 g/dl (3.3-4.9); ALKALINE PHOSPHATASE 206 IU/L (42-121); ANION GAP 11 (8-16); ASPARTATE AMINO TRANSFERASE 85 IU/L (15-46); BILIRUBIN,INDIRECT 0.7 mg/dl (0-1.1); BILIRUBIN,TOTAL 0.7 mg/dl (0.2-1.3); BLOOD UREA NITROGEN 105 mg/dl (7-20); CALCIUM 8.9 mg/dl (8.4-10.2); CARBON DIOXIDE 32 mmol/L (21-31); CHLORIDE 100 mmol/L (97-110); CREATININE 1.77 mg/dl (0.44-1.00); GLUCOSE 101 mg/dl (70-220); MAGNESIUM 2.4 mg/dl (1.7-2.5); POTASSIUM 4.9 mmol/L (3.5-5.1); SODIUM 138 mmol/L (135-144); TOTAL PROTEIN 5.6 g/dl (6.1-8.1)
[2017-11-18] MEDS ORDERED: NORepinephrine 8MG/250 ML BAG (07:00)
[2017-11-18] MEDS ORDERED: SUCCINYLCHOLINE CHLORIDE 100 MG/5 ML SYG IV (07:00)
[2017-11-18] MEDS ORDERED: ETOMIDATE 20 MG INJ (07:00)
[2017-11-18] MEDS: INSULIN ASPART [NOVOLOG] 3 ML PEN SC (07:35)
[2017-11-18] MEDS: ALBUTEROL/IPRATROPIUM (NEB) 3 ML AMP HHN ×2 (07:40→13:02)
[2017-11-18] MEDS: LACTULOSE 30ML CUP PO ×2 (08:58→21:10)
[2017-11-18] MEDS: RANITIDINE 150 MG TAB PO ×2 (08:58→21:11)
[2017-11-18] MEDS: BUPROPION (SR) 150 MG TAB PO ×2 (08:59→21:11)
[2017-11-18] MEDS: SUCRALFATE 1 GM TAB PO ×4 (08:59→21:10)
[2017-11-18] MEDS ORDERED: INSULIN DETEMIR [LEVEMIR] (100 UNITS/ML) SYG SC (09:00)
[2017-11-18] MEDS: FLUTICASONE/VILANTEROL 200-25 INH DEVICE INH ×2 (09:00→10:00)
[2017-11-18] MEDS: AMLODIPINE 5 MG TAB PO (09:00)
[2017-11-18] MEDS: ALBUMIN HUMAN 25% 100 ML IV ×2 (09:02→17:24)
[2017-11-18] MEDS: FLUTICASONE 0.05% 16 GM NAS SPRAY NASAL ×2 (09:02→21:10)
[2017-11-18] MEDS: NYSTATIN 30 GM POWDER BTL TOP ×2 (09:27→21:11)
[2017-11-18] MEDS ORDERED: VANCOMYCIN IV PER PHARMACY XX (09:30)
[2017-11-18] MEDS ORDERED: LINEZOLID 600 MG/D5W (PMX) 300 ML IVPB (09:30)
[2017-11-18] MEDS: CEFEPIME 1GM/50 ML (PMX) 50 ML IVPB (10:00)
[2017-11-18] MEDS: ACCU-CHEK XX ×15 (10:30→23:56)
[2017-11-18] MEDS ORDERED: DEXTROSE 50% 50 ML SYRINGE IV ×2 (10:30)
[2017-11-18] MEDS: RIFAXIMIN 550 MG TAB PO ×2 (11:39→21:11)
[2017-11-18] MEDS: SACCHAROMYCES BOULARDII 250 MG CAP PO ×2 (11:39→21:11)
[2017-11-18] MEDS: VANCOMYCIN 2 GM in SOD CHLORIDE 0.9% 500 ML IVPB (11:39)
[2017-11-18 11:41] LABS: LACTIC ACID 1.9 mmol/L (0.5-2.0)
[2017-11-18] MEDS: INSULIN HUMAN REGULAR 100 UNIT in SOD CHLORIDE 0.9% 99 ML IV (12:17)
[2017-11-18] MEDS: SILVER SULFADIAZINE 1% 25 GM CR TOP (12:19)
[2017-11-18] MEDS: L ACIDOPHIL/B LACTIS/B LONGUM CAPSULE PO ×2 (13:45→21:11)
[2017-11-18 14:12] LABS: AADO2 Arterial 603.8 mmHg (7.0-24.0); Allen Test ACCEPTAB; Arterial Base Excess 4.7 mmol/L (-3.0-3); Arterial Blood Gas Oxygen Sat 88.9 mmHG (95.0-100.0); Arterial COHb 0.5 % (0.0-3.0); Arterial Fraction of Oxyhgb 88.1 % (93.0-99.0); Arterial HCO3 30.4 mmol/L (22.0-26.0); Arterial MetHb 0.4 % (0.0-1.5); Arterial Total Hemglobin 9.7 g/dl (12.0-18.0); Arterial pCO2 50.6 mmhg (35-45); MODE VENT - AC; Site Left Radial
[2017-11-18] MEDS: BUMETANIDE 1 MG INJ IV (17:24)
[2017-11-18] MEDS: EPOETIN 10000 UNITS/ML (NON ESRD/NON ONCOLOGY) SC (17:34)
[2017-11-18] MEDS: ALBUTEROL HFA 8 GM INHALER INH (20:57)
[2017-11-18] MEDS: IPRATROPIUM (HFA) 12.9 GM INHALER INH (20:57)
[2017-11-18] MEDS: MONTELUKAST 10 MG TAB PO (21:11)
[2017-11-19] MEDS: ALBUTEROL HFA 8 GM INHALER INH ×4 (01:19→19:23)
[2017-11-19] MEDS: IPRATROPIUM (HFA) 12.9 GM INHALER INH ×4 (01:19→19:24)
[2017-11-19] MEDS: PROPOFOL 100 ML IV ×2 (01:31→10:35)
[2017-11-19] MEDS: NORepinephrine 8MG/250 ML (PMX 250 ML IV (01:33)
[2017-11-19] MEDS: ACCU-CHEK XX ×23 (01:34→23:10)
[2017-11-19] MEDS: ALBUMIN HUMAN 25% 100 ML IV (01:34)
[2017-11-19 04:30] LABS: ABNORMAL IP MESSAGE 1; HEMATOCRIT 26.1 % (37.0-47.0); HEMOGLOBIN 8.4 g/dl (12.0-16.0); MEAN CORPUSCULAR HEMOGLOBIN 30.4 pg (29.0-33.0); MEAN CORPUSCULAR HGB CONC 32.2 g/dl (32.0-37.0); MEAN CORPUSCULAR VOLUME 94.6 fl (82.0-101.0); NUCLEATED RED BLOOD CELLS% 10.4 /100WBC (0.0-0.0); PLATELET COUNT 97 10^3/UL (140-415); RED BLOOD COUNT 2.76 10^6/ul (4.20-5.40); RED CELL DISTRIBUTION WIDTH 17.9 % (11.5-14.5)
[2017-11-19 04:30] LABS: WHITE BLOOD COUNT 10.1 10^3/ul (4.8-10.8)
[2017-11-19 04:54] LABS: ALANINE AMINOTRANSFERASE 39 IU/L (13-69); ALBUMIN 3.1 g/dl (3.3-4.9); ALBUMIN/GLOBULIN RATIO 1.19; ALKALINE PHOSPHATASE 149 IU/L (42-121); ANION GAP 17 (8-16); ASPARTATE AMINO TRANSFERASE 81 IU/L (15-46); BILIRUBIN,INDIRECT 1.5 mg/dl (0-1.1); BLOOD UREA NITROGEN 108 mg/dl (7-20); CALCIUM 8.9 mg/dl (8.4-10.2); CARBON DIOXIDE 27 mmol/L (21-31); CHLORIDE 100 mmol/L (97-110); CREATININE 1.99 mg/dl (0.44-1.00); GLUCOSE 105 mg/dl (70-220); MAGNESIUM 2.4 mg/dl (1.7-2.5); PHOSPHORUS 4.9 mg/dl (2.5-4.9); POTASSIUM 4.9 mmol/L (3.5-5.1); SODIUM 139 mmol/L (135-144); TOTAL PROTEIN 5.7 g/dl (6.1-8.1)
[2017-11-19 05:27] LABS: ADD MAN DIFF? YES; POSITIVE DIFF @See below
[2017-11-19] MEDS: PANTOPRAZOLE 40 MG INJ IV ×2 (05:45→18:52)
[2017-11-19 07:57] LABS: ANISOCYTOSIS 1+ (0-0); BAND NEUTROPHILS #M 3.8 10^3/ul (0.0-0.6); BAND NEUTROPHILS % (M) 38 % (0-4); BASOPHIL #M 0.2 10^3/ul (0.0-0.0); BASOPHILS % (M) 2 % (0-2); EOSINOPHILS % (M) 6 % (0-7); ERYTHROBLAST% (NRBC) (M) 8 % (0-0); HYPOCHROMASIA 1+ (0-0); LYMPHOCYTES #M 1.4 10^3/ul (0.8-2.9); LYMPHOCYTES % (M) 14 % (15-51); METAMYELOCYTES #M 0.2 10^3/ul (0.0-0.0); METAMYELOCYTES %M 2 % (0-0); MICROCYTOSIS 1+ (0-0); MONOCYTE #M 0.6 10^3/ul (0.3-0.9); MONOCYTES % (M) 6 % (0-11); PLATELET ESTIMATE DECREASED; POLYCHROMASIA 1+ (0-0); SEG NEUT #M 3.6 10^3/ul (1.6-7.5); SEGMENTED NEUTROPHILS (M) % 32 % (39-77); SMUDGE%M 23 % (0-0)
[2017-11-19] MEDS: OCULAR LUBRICANT 3.5 GM OPH OINT BOTH EYES ×2 (09:00→20:25)
[2017-11-19] MEDS: FLUTICASONE/VILANTEROL 200-25 INH DEVICE INH (09:00)
[2017-11-19] MEDS: CEFEPIME 1GM/50 ML (PMX) 50 ML IVPB (09:22)
[2017-11-19] MEDS: BUPROPION (SR) 150 MG TAB PO ×2 (09:22→20:26)
[2017-11-19] MEDS: SUCRALFATE 1 GM TAB PO ×4 (09:22→20:26)
[2017-11-19] MEDS: L ACIDOPHIL/B LACTIS/B LONGUM CAPSULE PO ×2 (09:23→20:26)
[2017-11-19] MEDS: LACTULOSE 30ML CUP PO ×2 (09:23→20:26)
[2017-11-19] MEDS: RIFAXIMIN 550 MG TAB PO ×2 (09:23→20:26)
[2017-11-19] MEDS: SACCHAROMYCES BOULARDII 250 MG CAP PO ×2 (09:23→20:26)
[2017-11-19] MEDS: RANITIDINE 150 MG TAB PO ×2 (09:23→20:26)
[2017-11-19] MEDS: SILVER SULFADIAZINE 1% 25 GM CR TOP (09:24)
[2017-11-19] MEDS: NYSTATIN 30 GM POWDER BTL TOP ×2 (09:24→20:27)
[2017-11-19] MEDS: FLUTICASONE 0.05% 16 GM NAS SPRAY NASAL ×2 (09:24→20:26)
[2017-11-19 10:47] LABS: OCCULT BLOOD STOOL POSITIVE (NEGATIVE)
[2017-11-19] MEDS: VANCOMYCIN 500MG/NS (PMX) 100 ML IVPB (11:53)
[2017-11-19] MEDS: metroNIDAZOLE 500 MG/NS (PMX) 100 ML IVPB ×2 (15:10→23:10)
[2017-11-19] MEDS: MONTELUKAST 10 MG TAB PO (20:26)
[2017-11-20] MEDS: PROPOFOL 100 ML IV ×3 (00:30→18:15)
[2017-11-20] MEDS: ACCU-CHEK XX ×23 (00:30→23:15)
[2017-11-20] MEDS: ALBUTEROL HFA 8 GM INHALER INH ×4 (01:17→20:11)
[2017-11-20] MEDS: IPRATROPIUM (HFA) 12.9 GM INHALER INH ×4 (01:18→20:11)
[2017-11-20 05:43] LABS: WHITE BLOOD COUNT 15.7 10^3/ul (4.8-10.8)
[2017-11-20 05:43] LABS: ABNORMAL IP MESSAGE 1; HEMATOCRIT 23.8 % (37.0-47.0); HEMOGLOBIN 7.6 g/dl (12.0-16.0); MEAN CORPUSCULAR HEMOGLOBIN 30.6 pg (29.0-33.0); MEAN CORPUSCULAR HGB CONC 31.9 g/dl (32.0-37.0); MEAN PLATELET VOLUME 11.5 fl (7.4-10.4); NUCLEATED RED BLOOD CELLS% 2.7 /100WBC (0.0-0.0); PLATELET COUNT 96 10^3/UL (140-415); RED BLOOD COUNT 2.48 10^6/ul (4.20-5.40); RED CELL DISTRIBUTION WIDTH 17.9 % (11.5-14.5)
[2017-11-20] MEDS: PANTOPRAZOLE 40 MG INJ IV ×2 (05:44→17:29)
[2017-11-20] MEDS: metroNIDAZOLE 500 MG/NS (PMX) 100 ML IVPB ×3 (05:44→21:14)
[2017-11-20 05:47] LABS: ADD MAN DIFF? YES; POSITIVE DIFF @See below
[2017-11-20 06:18] LABS: AMMONIA 40 umol/l (9-30)
[2017-11-20 06:25] LABS: ALANINE AMINOTRANSFERASE 38 IU/L (13-69); ALBUMIN 2.8 g/dl (3.3-4.9); ALKALINE PHOSPHATASE 162 IU/L (42-121); ANION GAP 19 (8-16); ASPARTATE AMINO TRANSFERASE 87 IU/L (15-46); BILIRUBIN,INDIRECT 1.9 mg/dl (0-1.1); BILIRUBIN,TOTAL 4.7 mg/dl (0.2-1.3); BLOOD UREA NITROGEN 111 mg/dl (7-20); CALCIUM 8.7 mg/dl (8.4-10.2); CARBON DIOXIDE 25 mmol/L (21-31); CHLORIDE 97 mmol/L (97-110); CREATININE 2.35 mg/dl (0.44-1.00); GLUCOSE 133 mg/dl (70-220); MAGNESIUM 2.3 mg/dl (1.7-2.5); POTASSIUM 4.5 mmol/L (3.5-5.1); SODIUM 136 mmol/L (135-144); TOTAL PROTEIN 5.9 g/dl (6.1-8.1)
[2017-11-20 07:21] LABS: ADD UMIC YES; UR ASCORBIC ACID NEGATIVE (NEGATIVE); UR BACTERIA MODERATE /HPF (NONE SEEN); UR BILIRUBIN (Dip) NEGATIVE (NEGATIVE); UR BLOOD (Dip) 3+ mg/dL (NEGATIVE); UR BUDDING YEAST MANY /HPF (NONE SEEN); UR CLARITY CLOUDY (CLEAR); UR COLOR YELLOW (YELLOW); UR GLUCOSE (Dip) NEGATIVE (NEGATIVE); UR HYALINE CAST FEW /HPF (NONE SEEN); UR KETONES (Dip) NEGATIVE (NEGATIVE); UR LEUKOCYTE ESTERASE (Dip) 2+ Leu/ul (NEGATIVE); UR MUCUS FEW /HPF (NONE SEEN); UR NITRITE (Dip) NEGATIVE (NEGATIVE); UR RBC > 182 /HPF (0-5); UR RENAL EPITHELIAL CELL FEW /HPF (NONE SEEN); UR SPECIFIC GRAVITY (Dip) 1.011 (1.003-1.030); UR SQUAMOUS EPITHELIAL CELL FEW /HPF (FEW); UR TOTAL PROTEIN (Dip) 1+ mg/dl (NEGATIVE); UR UROBILINOGEN (Dip) NEGATIVE (NEGATIVE); UR WBC 98 /HPF (0-5)
[2017-11-20 07:24] LABS: AADO2 Arterial 597.4 mmHg (7.0-24.0); Allen Test ACCEPTAB; Arterial Base Excess -1.2 mmol/L (-3.0-3); Arterial Blood Gas Oxygen Sat 90.3 mmHG (95.0-100.0); Arterial COHb 0.8 % (0.0-3.0); Arterial Fraction of Oxyhgb 89.2 % (93.0-99.0); Arterial HCO3 25.1 mmol/L (22.0-26.0); Arterial MetHb 0.4 % (0.0-1.5); Arterial Total Hemglobin 9.1 g/dl (12.0-18.0); MODE VENT - AC; Site Left Radial
[2017-11-20 07:28] LABS: ANISOCYTOSIS 1+ (0-0); BAND NEUTROPHILS #M 5.1 10^3/ul (0.0-0.6); BAND NEUTROPHILS % (M) 33 % (0-4); BURR CELLS 1+ (0-0); EOSINOPHILS % (M) 9 % (0-7); ERYTHROBLAST% (NRBC) (M) 3 % (0-0); GIANT THROMBO% (M) 1 % (0-0); LYMPHOCYTES #M 0.9 10^3/ul (0.8-2.9); LYMPHOCYTES % (M) 6 % (15-51); METAMYELOCYTES #M 0.1 10^3/ul (0.0-0.0); METAMYELOCYTES %M 1 % (0-0); MONOCYTE #M 0.1 10^3/ul (0.3-0.9); MONOCYTES % (M) 1 % (0-11); PLATELET ESTIMATE DECREASED; POIKILOCYTOSIS 2+ (0-0); POLYCHROMASIA 3+ (0-0); PROMYELOCYTES #M 0.1 10^3/ul (0-0); PROMYELOCYTES % (M) 1 % (0-0); SEG NEUT #M 8.5 10^3/ul (1.6-7.5); SEGMENTED NEUTROPHILS (M) % 49 % (39-77); SMUDGE%M 41 % (0-0); SPHEROCYTES 1+ (0-0); TEAR DROP CELLS 2+ (0-0)
[2017-11-20] MEDS: FLUTICASONE 0.05% 16 GM NAS SPRAY NASAL ×2 (09:00→20:06)
[2017-11-20] MEDS: FLUTICASONE/VILANTEROL 200-25 INH DEVICE INH (09:00)
[2017-11-20] MEDS: CEFEPIME 1GM/50 ML (PMX) 50 ML IVPB (09:45)
[2017-11-20] MEDS: SACCHAROMYCES BOULARDII 250 MG CAP PO ×2 (09:45→21:05)
[2017-11-20] MEDS: RANITIDINE 150 MG TAB PO ×2 (09:45→21:05)
[2017-11-20] MEDS: BUPROPION (SR) 150 MG TAB PO ×2 (09:45→21:05)
[2017-11-20] MEDS: L ACIDOPHIL/B LACTIS/B LONGUM CAPSULE PO ×2 (09:45→21:05)
[2017-11-20] MEDS: LACTULOSE 30ML CUP PO ×2 (09:45→21:00)
[2017-11-20] MEDS: RIFAXIMIN 550 MG TAB PO ×2 (09:45→21:10)
[2017-11-20] MEDS: NYSTATIN 30 GM POWDER BTL TOP ×2 (09:46→21:06)
[2017-11-20] MEDS: OCULAR LUBRICANT 3.5 GM OPH OINT BOTH EYES ×2 (09:46→21:06)
[2017-11-20] MEDS: BUMETANIDE 25 MG in DEXTROSE 5% 150 ML IV (09:47)
[2017-11-20] MEDS: SILVER SULFADIAZINE 1% 25 GM CR TOP (09:47)
[2017-11-20] MEDS: ALTEPLASE (CATHFLO) 2 MG INJ CATHETER ×2 (09:49→19:26)
[2017-11-20] MEDS: SUCRALFATE 1 GM TAB PO ×4 (09:51→21:05)
[2017-11-20] MEDS ORDERED: hydrALAzine 20 MG INJ IV (10:30)
[2017-11-20] MEDS: VANCOMYCIN 500MG/NS (PMX) 100 ML IVPB (13:44)
[2017-11-20] MEDS: EPOETIN 10000 UNITS/ML (NON ESRD/NON ONCOLOGY) SC (17:14)
[2017-11-20] MEDS: DAPTOMYCIN 390 MG in SOD CHLORIDE 0.9% 100 ML IVPB (18:15)
[2017-11-20] MEDS: MONTELUKAST 10 MG TAB PO (21:05)
[2017-11-20] MEDS: INSULIN HUMAN REGULAR 100 UNIT in SOD CHLORIDE 0.9% 99 ML IV (23:33)
[2017-11-21] MEDS: ACCU-CHEK XX ×25 (00:03→23:46)
[2017-11-21] MEDS: IPRATROPIUM (HFA) 12.9 GM INHALER INH ×4 (02:00→20:15)
[2017-11-21] MEDS: ALBUTEROL HFA 8 GM INHALER INH ×4 (02:00→20:15)
[2017-11-21] MEDS: ALTEPLASE (CATHFLO) 2 MG INJ CATHETER (03:17)
[2017-11-21 05:40] LABS: ADD MAN DIFF? NO
[2017-11-21 05:45] LABS: WHITE BLOOD COUNT 12.4 10^3/ul (4.8-10.8)
[2017-11-21 05:45] LABS: ABNORMAL IP MESSAGE 1; HEMATOCRIT 21.9 % (37.0-47.0); HEMOGLOBIN 7.1 g/dl (12.0-16.0); MEAN CORPUSCULAR HEMOGLOBIN 31.6 pg (29.0-33.0); MEAN CORPUSCULAR HGB CONC 32.4 g/dl (32.0-37.0); MEAN CORPUSCULAR VOLUME 97.3 fl (82.0-101.0); MEAN PLATELET VOLUME 11.7 fl (7.4-10.4); NUCLEATED RED BLOOD CELLS% 1.4 /100WBC (0.0-0.0); PLATELET COUNT 63 10^3/UL (140-415); RED BLOOD COUNT 2.25 10^6/ul (4.20-5.40); RED CELL DISTRIBUTION WIDTH 17.7 % (11.5-14.5)
[2017-11-21] MEDS: PANTOPRAZOLE 40 MG INJ IV ×2 (05:50→17:16)
[2017-11-21] MEDS: metroNIDAZOLE 500 MG/NS (PMX) 100 ML IVPB ×3 (05:50→21:24)
[2017-11-21 06:10] LABS: POSITIVE DIFF @See below
[2017-11-21 06:16] LABS: CREATINE KINASE < 20 IU/L (23-200)
[2017-11-21] MEDS: BUMETANIDE 25 MG in DEXTROSE 5% 150 ML IV (06:37)
[2017-11-21] MEDS: PROPOFOL 100 ML IV ×2 (06:37→23:50)
[2017-11-21 06:59] LABS: ALBUMIN/GLOBULIN RATIO 0.85; ANION GAP 16 (8-16); BILIRUBIN,TOTAL 4.4 mg/dl (0.2-1.3)
[2017-11-21 07:04] LABS: ALANINE AMINOTRANSFERASE 31 IU/L (13-69); ALBUMIN 2.4 g/dl (3.3-4.9); ALKALINE PHOSPHATASE 158 IU/L (42-121); ASPARTATE AMINO TRANSFERASE 64 IU/L (15-46); BILIRUBIN,INDIRECT 1.3 mg/dl (0-1.1); BLOOD UREA NITROGEN 107 mg/dl (7-20); CALCIUM 8.6 mg/dl (8.4-10.2); CARBON DIOXIDE 25 mmol/L (21-31); CHLORIDE 98 mmol/L (97-110); CREATININE 2.21 mg/dl (0.44-1.00); GLUCOSE 149 mg/dl (70-220); MAGNESIUM 2.2 mg/dl (1.7-2.5); PHOSPHORUS 4.3 mg/dl (2.5-4.9); POTASSIUM 3.9 mmol/L (3.5-5.1); SODIUM 135 mmol/L (135-144); TOTAL PROTEIN 5.2 g/dl (6.1-8.1)
[2017-11-21 07:40] LABS: ANISOCYTOSIS 1+ (0-0); BAND NEUTROPHILS #M 4.4 10^3/ul (0.0-0.6); BAND NEUTROPHILS % (M) 36 % (0-4); EOSINOPHILS % (M) 12 % (0-7); ERYTHROBLAST% (NRBC) (M) 4 % (0-0); HYPOCHROMASIA 1+ (0-0); LYMPHOCYTES #M 0.3 10^3/ul (0.8-2.9); LYMPHOCYTES % (M) 3 % (15-51); METAMYELOCYTES #M 0.1 10^3/ul (0.0-0.0); METAMYELOCYTES %M 1 % (0-0); MONOCYTE #M 0.2 10^3/ul (0.3-0.9); MONOCYTES % (M) 2 % (0-11); PLATELET ESTIMATE DECREASED; POIKILOCYTOSIS 1+ (0-0); POLYCHROMASIA 1+ (0-0); SEG NEUT #M 6.2 10^3/ul (1.6-7.5); SEGMENTED NEUTROPHILS (M) % 46 % (39-77); SMUDGE%M 109 % (0-0)
[2017-11-21 07:44] LABS: AADO2 Arterial 609.2 mmHg (7.0-24.0); Allen Test ACCEPTAB; Arterial Base Excess 0.5 mmol/L (-3.0-3); Arterial Blood Gas Oxygen Sat 91.4 mmHG (95.0-100.0); Arterial COHb 1.4 % (0.0-3.0); Arterial Fraction of Oxyhgb 89.7 % (93.0-99.0); Arterial HCO3 25.4 mmol/L (22.0-26.0); Arterial MetHb 0.5 % (0.0-1.5); Arterial Total Hemglobin 7.7 g/dl (12.0-18.0); Arterial pCO2 42.5 mmhg (35-45); MODE VENT - AC; Site Left Radial
[2017-11-21] MEDS: FLUTICASONE/VILANTEROL 200-25 INH DEVICE INH (08:13)
[2017-11-21] MEDS: FLUTICASONE 0.05% 16 GM NAS SPRAY NASAL ×2 (08:18→19:49)
[2017-11-21] MEDS: RIFAXIMIN 550 MG TAB PO ×2 (09:11→21:26)
[2017-11-21] MEDS: RANITIDINE 150 MG TAB PO ×2 (09:11→21:26)
[2017-11-21] MEDS: SACCHAROMYCES BOULARDII 250 MG CAP PO ×2 (09:11→21:26)
[2017-11-21] MEDS: SUCRALFATE 1 GM TAB PO ×4 (09:11→21:26)
[2017-11-21] MEDS: CEFEPIME 1GM/50 ML (PMX) 50 ML IVPB (09:11)
[2017-11-21] MEDS: LACTULOSE 30ML CUP PO ×2 (09:11→21:00)
[2017-11-21] MEDS: L ACIDOPHIL/B LACTIS/B LONGUM CAPSULE PO ×2 (09:11→21:26)
[2017-11-21] MEDS: BUPROPION (SR) 150 MG TAB PO ×2 (09:12→21:26)
[2017-11-21] MEDS: NYSTATIN 30 GM POWDER BTL TOP ×2 (09:12→21:27)
[2017-11-21] MEDS: SILVER SULFADIAZINE 1% 25 GM CR TOP (09:12)
[2017-11-21] MEDS: OCULAR LUBRICANT 3.5 GM OPH OINT BOTH EYES ×2 (09:13→21:27)
[2017-11-21] MEDS: FLUCONAZOLE 200 MG TAB GTB (11:02)
[2017-11-21] MEDS: NORepinephrine 32 MG in DEXTROSE 5% 218 ML IV (11:08)
[2017-11-21 12:11] LABS: WHITE BLOOD COUNT 10.9 10^3/ul (4.8-10.8)
[2017-11-21 12:11] LABS: ABNORMAL IP MESSAGE 1; HEMATOCRIT 21.1 % (37.0-47.0); MEAN CORPUSCULAR HEMOGLOBIN 30.8 pg (29.0-33.0); MEAN CORPUSCULAR HGB CONC 32.2 g/dl (32.0-37.0); MEAN CORPUSCULAR VOLUME 95.5 fl (82.0-101.0); MEAN PLATELET VOLUME 11.6 fl (7.4-10.4); NUCLEATED RED BLOOD CELLS% 1.8 /100WBC (0.0-0.0); PLATELET COUNT 48 10^3/UL (140-415); RED BLOOD COUNT 2.21 10^6/ul (4.20-5.40); RED CELL DISTRIBUTION WIDTH 17.7 % (11.5-14.5)
[2017-11-21 12:18] LABS: ADD MAN DIFF? YES; HEMOGLOBIN 6.8 g/dl (12.0-16.0); POSITIVE DIFF @See below
[2017-11-21 12:35] LABS: INR 1.84; PROTIME 21.7 Sec (11.9-14.9); PT RATIO 1.7
[2017-11-21 12:36] LABS: PARTIAL THROMBOPLASTIN TIME 47.3 Sec (25.0-35.0)
[2017-11-21 13:34] LABS: ANISOCYTOSIS 1+ (0-0); BAND NEUTROPHILS % (M) 19 % (0-4); BURR CELLS 1+ (0-0); EOSINOPHILS % (M) 4 % (0-7); ERYTHROBLAST% (NRBC) (M) 2 % (0-0); GIANT THROMBO% (M) 1 % (0-0); LYMPHOCYTES #M 0.1 10^3/ul (0.8-2.9); LYMPHOCYTES % (M) 1 % (15-51); MONOCYTE #M 0.1 10^3/ul (0.3-0.9); MONOCYTES % (M) 1 % (0-11); PLATELET ESTIMATE SIG DECREASED; POIKILOCYTOSIS 2+ (0-0); POLYCHROMASIA 1+ (0-0); SEG NEUT #M 8.4 10^3/ul (1.6-7.5); SEGMENTED NEUTROPHILS (M) % 75 % (39-77); SMUDGE%M 63 % (0-0)
[2017-11-21] MEDS: PHYTONADIONE 10 MG in DEXTROSE 5% 50 ML IVPB (14:42)
[2017-11-21] MEDS: INSULIN HUMAN REGULAR 100 UNIT in SOD CHLORIDE 0.9% 99 ML IV (15:48)
[2017-11-21] MEDS: MONTELUKAST 10 MG TAB PO (21:26)
[2017-11-22] MEDS: ACCU-CHEK XX ×24 (00:38→23:30)
[2017-11-22] MEDS: ALBUTEROL HFA 8 GM INHALER INH ×4 (02:11→19:51)
[2017-11-22] MEDS: IPRATROPIUM (HFA) 12.9 GM INHALER INH ×4 (02:11→19:51)
[2017-11-22] MEDS: metroNIDAZOLE 500 MG/NS (PMX) 100 ML IVPB ×3 (05:37→22:05)
[2017-11-22] MEDS: BUMETANIDE 25 MG in DEXTROSE 5% 150 ML IV (05:37)
[2017-11-22] MEDS: PANTOPRAZOLE 40 MG INJ IV ×2 (05:38→17:15)
[2017-11-22] MEDS: INSULIN HUMAN REGULAR 100 UNIT in SOD CHLORIDE 0.9% 99 ML IV (05:44)
[2017-11-22 06:00] LABS: ABNORMAL IP MESSAGE 1; MEAN CORPUSCULAR HEMOGLOBIN 30.6 pg (29.0-33.0); MEAN CORPUSCULAR HGB CONC 31.8 g/dl (32.0-37.0); MEAN CORPUSCULAR VOLUME 96.1 fl (82.0-101.0); MEAN PLATELET VOLUME 11.8 fl (7.4-10.4); NUCLEATED RED BLOOD CELLS% 1.3 /100WBC (0.0-0.0); PLATELET COUNT 47 10^3/UL (140-415); RED BLOOD COUNT 2.29 10^6/ul (4.20-5.40); RED CELL DISTRIBUTION WIDTH 17.6 % (11.5-14.5)
[2017-11-22 06:00] LABS: WHITE BLOOD COUNT 11.2 10^3/ul (4.8-10.8)
[2017-11-22 06:13] LABS: INR 1.87; PROTIME 21.9 Sec (11.9-14.9); PT RATIO 1.7
[2017-11-22 06:14] LABS: PARTIAL THROMBOPLASTIN TIME 49.2 Sec (25.0-35.0)
[2017-11-22 06:14] LABS: AMMONIA 135 umol/l (9-30)
[2017-11-22 06:19] LABS: ADD MAN DIFF? YES; POSITIVE DIFF @See below
[2017-11-22 06:26] LABS: ALANINE AMINOTRANSFERASE 32 IU/L (13-69); ALBUMIN 2.2 g/dl (3.3-4.9); ALBUMIN/GLOBULIN RATIO 0.78; ALKALINE PHOSPHATASE 216 IU/L (42-121); ANION GAP 15 (8-16); ASPARTATE AMINO TRANSFERASE 66 IU/L (15-46); BILIRUBIN,INDIRECT 1.1 mg/dl (0-1.1); BILIRUBIN,TOTAL 5.4 mg/dl (0.2-1.3); BLOOD UREA NITROGEN 104 mg/dl (7-20); CALCIUM 8.6 mg/dl (8.4-10.2); CARBON DIOXIDE 27 mmol/L (21-31); CHLORIDE 98 mmol/L (97-110); CREATININE 2.07 mg/dl (0.44-1.00); GLUCOSE 144 mg/dl (70-220); MAGNESIUM 2.1 mg/dl (1.7-2.5); POTASSIUM 3.6 mmol/L (3.5-5.1); SODIUM 136 mmol/L (135-144)
[2017-11-22 07:16] LABS: ANISOCYTOSIS 1+ (0-0); BAND NEUTROPHILS % (M) 9 % (0-4); BASOPHIL #M 0.2 10^3/ul (0.0-0.0); BASOPHILS % (M) 2 % (0-2); BURR CELLS 1+ (0-0); EOSINOPHILS % (M) 7 % (0-7); ERYTHROBLAST% (NRBC) (M) 2 % (0-0); LYMPHOCYTES #M 0.5 10^3/ul (0.8-2.9); LYMPHOCYTES % (M) 5 % (15-51); MONOCYTE #M 0.4 10^3/ul (0.3-0.9); MONOCYTES % (M) 4 % (0-11); PLATELET ESTIMATE SIG DECREASED; POIKILOCYTOSIS 1+ (0-0); POLYCHROMASIA 3+ (0-0); SEG NEUT #M 8.3 10^3/ul (1.6-7.5); SEGMENTED NEUTROPHILS (M) % 73 % (39-77); SMUDGE%M 7 % (0-0); TEAR DROP CELLS 1+ (0-0)
[2017-11-22] MEDS: SUCRALFATE 1 GM TAB PO ×4 (08:25→21:07)
[2017-11-22] MEDS: RIFAXIMIN 550 MG TAB PO ×2 (08:25→21:38)
[2017-11-22] MEDS: SACCHAROMYCES BOULARDII 250 MG CAP PO ×2 (08:25→21:07)
[2017-11-22] MEDS: FLUCONAZOLE 200 MG TAB GTB (08:25)
[2017-11-22] MEDS: OCULAR LUBRICANT 3.5 GM OPH OINT BOTH EYES ×2 (08:25→21:06)
[2017-11-22] MEDS: NYSTATIN 30 GM POWDER BTL TOP ×2 (08:25→21:06)
[2017-11-22] MEDS: RANITIDINE 150 MG TAB PO ×2 (08:25→21:07)
[2017-11-22] MEDS: L ACIDOPHIL/B LACTIS/B LONGUM CAPSULE PO ×2 (08:25→21:07)
[2017-11-22] MEDS: BUPROPION (SR) 150 MG TAB PO (08:25)
[2017-11-22] MEDS: LACTULOSE 30ML CUP PO ×2 (08:25→21:06)
[2017-11-22] MEDS: CEFEPIME 1GM/50 ML (PMX) 50 ML IVPB (08:26)
[2017-11-22] MEDS: FLUTICASONE 0.05% 16 GM NAS SPRAY NASAL ×2 (08:26→21:06)
[2017-11-22] MEDS: FLUTICASONE/VILANTEROL 200-25 INH DEVICE INH (08:26)
[2017-11-22] MEDS: SILVER SULFADIAZINE 1% 25 GM CR TOP (08:26)
[2017-11-22] MEDS: POTASSIUM CHLORIDE 20 MEQ POWDER FOR ORAL SOLN NGT (11:07)
[2017-11-22] MEDS: PHYTONADIONE 10 MG in DEXTROSE 5% 50 ML IVPB (11:35)
[2017-11-22] MEDS: EPOETIN 10000 UNITS/ML (NON ESRD/NON ONCOLOGY) SC (17:14)
[2017-11-22] MEDS: PROPOFOL 100 ML IV (17:26)
[2017-11-22] MEDS: MONTELUKAST 10 MG TAB PO (21:07)
[2017-11-22] MEDS: BUPROPION 100 MG TAB NGT (21:38)
[2017-11-23] MEDS: PROPOFOL 100 ML IV ×3 (00:30→14:57)
[2017-11-23] MEDS: ACCU-CHEK XX ×23 (00:30→22:30)
[2017-11-23] MEDS: ALBUTEROL HFA 8 GM INHALER INH ×4 (02:10→19:48)
[2017-11-23] MEDS: IPRATROPIUM (HFA) 12.9 GM INHALER INH ×4 (02:10→19:48)
[2017-11-23] MEDS: INSULIN HUMAN REGULAR 100 UNIT in SOD CHLORIDE 0.9% 99 ML IV (02:31)
[2017-11-23 05:33] LABS: WHITE BLOOD COUNT 11.5 10^3/ul (4.8-10.8)
[2017-11-23 05:33] LABS: ABNORMAL IP MESSAGE 1; HEMATOCRIT 23.1 % (37.0-47.0); HEMOGLOBIN 7.4 g/dl (12.0-16.0); MEAN CORPUSCULAR HEMOGLOBIN 30.8 pg (29.0-33.0); MEAN CORPUSCULAR VOLUME 96.3 fl (82.0-101.0); MEAN PLATELET VOLUME 12.1 fl (7.4-10.4); NUCLEATED RED BLOOD CELLS% 4.5 /100WBC (0.0-0.0); PLATELET COUNT 56 10^3/UL (140-415); RED CELL DISTRIBUTION WIDTH 17.5 % (11.5-14.5)
[2017-11-23 05:41] LABS: ADD MAN DIFF? YES; POSITIVE DIFF @See below
[2017-11-23 05:50] LABS: INR 1.75; PROTIME 20.8 Sec (11.9-14.9); PT RATIO 1.6
[2017-11-23 05:51] LABS: PARTIAL THROMBOPLASTIN TIME 46.9 Sec (25.0-35.0)
[2017-11-23 06:02] LABS: ALANINE AMINOTRANSFERASE 31 IU/L (13-69); ALBUMIN 2.1 g/dl (3.3-4.9); ALBUMIN/GLOBULIN RATIO 0.72; ALKALINE PHOSPHATASE 269 IU/L (42-121); ANION GAP 16 (8-16); ASPARTATE AMINO TRANSFERASE 71 IU/L (15-46); BILIRUBIN,TOTAL 6.1 mg/dl (0.2-1.3); BLOOD UREA NITROGEN 99 mg/dl (7-20); CARBON DIOXIDE 26 mmol/L (21-31); CHLORIDE 100 mmol/L (97-110); CREATININE 2.11 mg/dl (0.44-1.00); GLUCOSE 122 mg/dl (70-220); MAGNESIUM 1.9 mg/dl (1.7-2.5); POTASSIUM 3.9 mmol/L (3.5-5.1); SODIUM 138 mmol/L (135-144)
[2017-11-23] MEDS: PANTOPRAZOLE 40 MG INJ IV ×2 (06:14→17:48)
[2017-11-23] MEDS: metroNIDAZOLE 500 MG/NS (PMX) 100 ML IVPB ×2 (06:15→13:41)
[2017-11-23 07:01] LABS: ANISOCYTOSIS 2+ (0-0); BAND NEUTROPHILS #M 0.3 10^3/ul (0.0-0.6); BAND NEUTROPHILS % (M) 3 % (0-4); BASOPHIL #M 0.2 10^3/ul (0.0-0.0); BASOPHILS % (M) 2 % (0-2); BURR CELLS 1+ (0-0); EOSINOPHILS % (M) 10 % (0-7); ERYTHROBLAST% (NRBC) (M) 7 % (0-0); LYMPHOCYTES % (M) 9 % (15-51); MONOCYTE #M 0.8 10^3/ul (0.3-0.9); MONOCYTES % (M) 7 % (0-11); PLATELET ESTIMATE DECREASED; POIKILOCYTOSIS 2+ (0-0); POLYCHROMASIA 2+ (0-0); SEGMENTED NEUTROPHILS (M) % 69 % (39-77); SMUDGE%M 16 % (0-0); TARGET CELLS 1+ (0-0)
[2017-11-23] MEDS: FLUTICASONE/VILANTEROL 200-25 INH DEVICE INH (09:00)
[2017-11-23] MEDS: FLUCONAZOLE 200 MG TAB GTB (09:00)
[2017-11-23] MEDS: SUCRALFATE 1 GM TAB PO ×4 (09:45→20:38)
[2017-11-23] MEDS: RANITIDINE 150 MG TAB PO ×2 (09:46→20:38)
[2017-11-23] MEDS: OCULAR LUBRICANT 3.5 GM OPH OINT BOTH EYES ×2 (09:46→20:38)
[2017-11-23] MEDS: BUPROPION 100 MG TAB NGT ×2 (09:46→20:37)
[2017-11-23] MEDS: BUMETANIDE 25 MG in DEXTROSE 5% 150 ML IV (09:46)
[2017-11-23] MEDS: CEFEPIME 1GM/50 ML (PMX) 50 ML IVPB (09:46)
[2017-11-23] MEDS: RIFAXIMIN 550 MG TAB PO ×2 (09:46→20:37)
[2017-11-23] MEDS: LACTULOSE 30ML CUP PO ×2 (09:46→20:37)
[2017-11-23] MEDS: SACCHAROMYCES BOULARDII 250 MG CAP PO ×2 (09:46→20:38)
[2017-11-23] MEDS: NYSTATIN 30 GM POWDER BTL TOP ×2 (09:47→20:38)
[2017-11-23] MEDS: SILVER SULFADIAZINE 1% 25 GM CR TOP (09:47)
[2017-11-23] MEDS: FLUTICASONE 0.05% 16 GM NAS SPRAY NASAL ×2 (09:49→20:38)
[2017-11-23] MEDS ORDERED: BUMETANIDE 12 MG in DEXTROSE 5% 72 ML IV (10:00)
[2017-11-23] MEDS: L ACIDOPHIL/B LACTIS/B LONGUM CAPSULE PO ×2 (11:47→20:38)
[2017-11-23 12:56] LABS: PROCALCITONIN 21.58 ng/mL (<0.10)
[2017-11-23] MEDS ORDERED: DOPamine-D5W 1.6 MG/ML 250 ML (14:12)
[2017-11-23] MEDS ORDERED: DOPamine-D5W 1.6 MG/ML 250 ML IV (17:00)
[2017-11-23] MEDS: ACETAMINOPHEN 325 MG TAB PO (17:48)
[2017-11-23] MEDS: PIPER-TAZO 2.25 GM (PMX) 50 ML IVPB (17:48)
[2017-11-23] MEDS: MONTELUKAST 10 MG TAB PO (20:38)
[2017-11-24] MEDS: ACCU-CHEK XX ×25 (00:15→23:38)
[2017-11-24] MEDS: PIPER-TAZO 2.25 GM (PMX) 50 ML IVPB ×4 (00:35→17:50)
[2017-11-24] MEDS: NORepinephrine 32 MG in DEXTROSE 5% 218 ML IV (00:53)
[2017-11-24] MEDS: ALBUTEROL HFA 8 GM INHALER INH ×4 (01:21→20:02)
[2017-11-24] MEDS: IPRATROPIUM (HFA) 12.9 GM INHALER INH ×4 (01:21→20:02)
[2017-11-24] MEDS: PROPOFOL 100 ML IV ×2 (01:38→18:05)
[2017-11-24] MEDS: INSULIN HUMAN REGULAR 100 UNIT in SOD CHLORIDE 0.9% 99 ML IV ×2 (02:02→15:49)
[2017-11-24 05:17] LABS: ABNORMAL IP MESSAGE 1; HEMATOCRIT 24.9 % (37.0-47.0); HEMOGLOBIN 7.8 g/dl (12.0-16.0); MEAN CORPUSCULAR HEMOGLOBIN 30.6 pg (29.0-33.0); MEAN CORPUSCULAR HGB CONC 31.3 g/dl (32.0-37.0); MEAN CORPUSCULAR VOLUME 97.6 fl (82.0-101.0); MEAN PLATELET VOLUME 12.1 fl (7.4-10.4); NUCLEATED RED BLOOD CELLS% 5.5 /100WBC (0.0-0.0); PLATELET COUNT 101 10^3/UL (140-415); RED BLOOD COUNT 2.55 10^6/ul (4.20-5.40); RED CELL DISTRIBUTION WIDTH 18.7 % (11.5-14.5)
[2017-11-24 05:17] LABS: WHITE BLOOD COUNT 22.9 10^3/ul (4.8-10.8)
[2017-11-24 05:43] LABS: ADD MAN DIFF? YES; POSITIVE DIFF @See below
[2017-11-24] MEDS: PANTOPRAZOLE 40 MG INJ IV ×2 (05:45→17:50)
[2017-11-24 05:49] LABS: ALBUMIN 2.4 g/dl (3.3-4.9); ALBUMIN/GLOBULIN RATIO 0.77; ALKALINE PHOSPHATASE 332 IU/L (42-121); ANION GAP 14 (8-16); ASPARTATE AMINO TRANSFERASE 88 IU/L (15-46); BILIRUBIN,INDIRECT 0.8 mg/dl (0-1.1); BILIRUBIN,TOTAL 6.2 mg/dl (0.2-1.3); BLOOD UREA NITROGEN 109 mg/dl (7-20); CALCIUM 9.3 mg/dl (8.4-10.2); CARBON DIOXIDE 23 mmol/L (21-31); CHLORIDE 104 mmol/L (97-110); CREATININE 2.46 mg/dl (0.44-1.00); GLUCOSE 137 mg/dl (70-220); POTASSIUM 4.6 mmol/L (3.5-5.1); SODIUM 136 mmol/L (135-144); TOTAL PROTEIN 5.5 g/dl (6.1-8.1)
[2017-11-24] MEDS: SUCRALFATE 1 GM TAB PO ×4 (07:05→20:18)
[2017-11-24 07:27] LABS: ALANINE AMINOTRANSFERASE 37 IU/L (13-69)
[2017-11-24] MEDS: BUMETANIDE 25 MG in DEXTROSE 5% 150 ML IV (07:44)
[2017-11-24 08:04] LABS: ANISOCYTOSIS 2+ (0-0); BAND NEUTROPHILS #M 1.3 10^3/ul (0.0-0.6); BAND NEUTROPHILS % (M) 6 % (0-4); BASOPHIL #M 0.2 10^3/ul (0.0-0.0); BASOPHILS % (M) 1 % (0-2); BURR CELLS 1+ (0-0); EOSINOPHILS % (M) 11 % (0-7); ERYTHROBLAST% (NRBC) (M) 5 % (0-0); LYMPHOCYTES #M 2.5 10^3/ul (0.8-2.9); LYMPHOCYTES % (M) 11 % (15-51); METAMYELOCYTES #M 0.2 10^3/ul (0.0-0.0); METAMYELOCYTES %M 1 % (0-0); MONOCYTES % (M) 9 % (0-11); MYELOCYTES #M 1.3 10^3/ul (0.0-0.0); MYELOCYTES % (M) 6 % (0-0); PLATELET ESTIMATE DECREASED; POIKILOCYTOSIS 1+ (0-0); POLYCHROMASIA 1+ (0-0); PROMYELOCYTES #M 0.4 10^3/ul (0-0); PROMYELOCYTES % (M) 2 % (0-0); SEG NEUT #M 12.4 10^3/ul (1.6-7.5); SEGMENTED NEUTROPHILS (M) % 53 % (39-77); SMUDGE%M 18 % (0-0); TARGET CELLS 1+ (0-0)
[2017-11-24] MEDS: FLUTICASONE/VILANTEROL 200-25 INH DEVICE INH (09:00)
[2017-11-24] MEDS: FLUCONAZOLE 200 MG TAB GTB (09:35)
[2017-11-24] MEDS: BUPROPION 100 MG TAB NGT ×2 (09:35→20:18)
[2017-11-24] MEDS: L ACIDOPHIL/B LACTIS/B LONGUM CAPSULE PO ×2 (09:35→20:18)
[2017-11-24] MEDS: RIFAXIMIN 550 MG TAB PO ×2 (09:35→20:18)
[2017-11-24] MEDS: LACTULOSE 30ML CUP PO ×2 (09:35→20:18)
[2017-11-24] MEDS: RANITIDINE 150 MG TAB PO ×2 (09:35→20:18)
[2017-11-24] MEDS: OCULAR LUBRICANT 3.5 GM OPH OINT BOTH EYES ×2 (09:35→20:19)
[2017-11-24] MEDS: SACCHAROMYCES BOULARDII 250 MG CAP PO ×2 (09:35→20:18)
[2017-11-24] MEDS: NYSTATIN 30 GM POWDER BTL TOP ×2 (09:35→20:19)
[2017-11-24] MEDS: SILVER SULFADIAZINE 1% 25 GM CR TOP (09:36)
[2017-11-24] MEDS: FLUTICASONE 0.05% 16 GM NAS SPRAY NASAL ×2 (09:42→20:18)
[2017-11-24] MEDS ORDERED: PHENYLephrine 40 MG in DEXTROSE 5% 496 ML IV ×2 (09:55→10:30)
[2017-11-24] MEDS: MONTELUKAST 10 MG TAB PO (20:18)
[2017-11-25] MEDS: PIPER-TAZO 2.25 GM (PMX) 50 ML IVPB ×4 (00:29→18:00)
[2017-11-25] MEDS: ACCU-CHEK XX ×24 (00:30→23:30)
[2017-11-25] MEDS: ALBUTEROL HFA 8 GM INHALER INH ×4 (01:27→19:48)
[2017-11-25] MEDS: IPRATROPIUM (HFA) 12.9 GM INHALER INH ×4 (01:27→19:48)
[2017-11-25 05:23] LABS: ABNORMAL IP MESSAGE 1; HEMOGLOBIN 7.6 g/dl (12.0-16.0); MEAN CORPUSCULAR HEMOGLOBIN 30.5 pg (29.0-33.0); MEAN CORPUSCULAR HGB CONC 31.7 g/dl (32.0-37.0); MEAN CORPUSCULAR VOLUME 96.4 fl (82.0-101.0); MEAN PLATELET VOLUME 11.7 fl (7.4-10.4); NUCLEATED RED BLOOD CELLS% 5.4 /100WBC (0.0-0.0); PLATELET COUNT 95 10^3/UL (140-415); RED BLOOD COUNT 2.49 10^6/ul (4.20-5.40); RED CELL DISTRIBUTION WIDTH 19.1 % (11.5-14.5)
[2017-11-25 05:23] LABS: WHITE BLOOD COUNT 24.1 10^3/ul (4.8-10.8)
[2017-11-25 05:34] LABS: ADD MAN DIFF? YES; POSITIVE DIFF @See below
[2017-11-25] MEDS: PANTOPRAZOLE 40 MG INJ IV ×2 (06:21→17:56)
[2017-11-25 07:33] LABS: ALANINE AMINOTRANSFERASE 37 IU/L (13-69); ALBUMIN 1.9 g/dl (3.3-4.9); ALBUMIN/GLOBULIN RATIO 0.65; ALKALINE PHOSPHATASE 365 IU/L (42-121); ANION GAP 15 (8-16); ASPARTATE AMINO TRANSFERASE 86 IU/L (15-46); BILIRUBIN,TOTAL 5.8 mg/dl (0.2-1.3); BLOOD UREA NITROGEN 107 mg/dl (7-20); CALCIUM 9.5 mg/dl (8.4-10.2); CARBON DIOXIDE 24 mmol/L (21-31); CHLORIDE 103 mmol/L (97-110); CREATININE 2.51 mg/dl (0.44-1.00); GLUCOSE 106 mg/dl (70-220); POTASSIUM 4.2 mmol/L (3.5-5.1); SODIUM 138 mmol/L (135-144); TOTAL PROTEIN 4.8 g/dl (6.1-8.1)
[2017-11-25 08:02] LABS: ANISOCYTOSIS 1+ (0-0); BAND NEUTROPHILS #M 0.7 10^3/ul (0.0-0.6); BAND NEUTROPHILS % (M) 3 % (0-4); BASOPHIL #M 0.7 10^3/ul (0.0-0.0); BASOPHILS % (M) 3 % (0-2); EOSINOPHILS % (M) 10 % (0-7); ERYTHROBLAST% (NRBC) (M) 5 % (0-0); GIANT THROMBO% (M) 5 % (0-0); HYPOCHROMASIA 1+ (0-0); LYMPHOCYTES #M 1.6 10^3/ul (0.8-2.9); LYMPHOCYTES % (M) 7 % (15-51); METAMYELOCYTES #M 0.7 10^3/ul (0.0-0.0); METAMYELOCYTES %M 3 % (0-0); MONOCYTE #M 0.2 10^3/ul (0.3-0.9); MONOCYTES % (M) 1 % (0-11); MYELOCYTES #M 0.4 10^3/ul (0.0-0.0); MYELOCYTES % (M) 2 % (0-0); PLATELET ESTIMATE DECREASED; POLYCHROMASIA 1+ (0-0); REACTIVE LYMPHOCYTES #M 0.4 10^3/ul (0.0-0.0); REACTIVE LYMPHOCYTES% (M) 2 % (0-0); SEG NEUT #M 16.8 10^3/ul (1.6-7.5); SEGMENTED NEUTROPHILS (M) % 69 % (39-77); SMUDGE%M 13 % (0-0); TARGET CELLS 1+ (0-0)
[2017-11-25] MEDS: FLUTICASONE/VILANTEROL 200-25 INH DEVICE INH (09:00)
[2017-11-25] MEDS: SILVER SULFADIAZINE 1% 25 GM CR TOP (09:16)
[2017-11-25] MEDS: OCULAR LUBRICANT 3.5 GM OPH OINT BOTH EYES ×2 (09:16→20:51)
[2017-11-25] MEDS: FLUTICASONE 0.05% 16 GM NAS SPRAY NASAL ×2 (09:16→20:51)
[2017-11-25] MEDS: NYSTATIN 30 GM POWDER BTL TOP ×2 (09:16→20:52)
[2017-11-25] MEDS: BUPROPION 100 MG TAB NGT ×2 (09:24→20:52)
[2017-11-25] MEDS: LACTULOSE 30ML CUP PO ×2 (09:24→20:51)
[2017-11-25] MEDS: FLUCONAZOLE 200 MG TAB GTB (09:25)
[2017-11-25] MEDS: SUCRALFATE 1 GM TAB PO ×4 (09:25→20:52)
[2017-11-25] MEDS: L ACIDOPHIL/B LACTIS/B LONGUM CAPSULE PO ×2 (09:25→20:51)
[2017-11-25] MEDS: RIFAXIMIN 550 MG TAB PO ×2 (09:25→20:52)
[2017-11-25] MEDS: SACCHAROMYCES BOULARDII 250 MG CAP PO ×2 (09:25→20:52)
[2017-11-25] MEDS: RANITIDINE 150 MG TAB PO ×2 (09:25→20:51)
[2017-11-25] MEDS: BUMETANIDE 25 MG in DEXTROSE 5% 150 ML IV (11:06)
[2017-11-25] MEDS: PROPOFOL 100 ML IV ×2 (12:19→19:40)
[2017-11-25] MEDS: EPOETIN 10000 UNITS/ML (NON ESRD/NON ONCOLOGY) SC (17:57)
[2017-11-25] MEDS: NORepinephrine 32 MG in DEXTROSE 5% 218 ML IV (19:44)
[2017-11-25] MEDS: MONTELUKAST 10 MG TAB PO (20:52)
[2017-11-26] MEDS: PIPER-TAZO 2.25 GM (PMX) 50 ML IVPB ×4 (00:17→18:13)
[2017-11-26] MEDS: ACCU-CHEK XX ×24 (00:30→23:30)
[2017-11-26] MEDS: IPRATROPIUM (HFA) 12.9 GM INHALER INH ×4 (02:15→19:33)
[2017-11-26] MEDS: ALBUTEROL HFA 8 GM INHALER INH ×4 (02:16→19:33)
[2017-11-26 05:47] LABS: ABNORMAL IP MESSAGE 1; HEMATOCRIT 24.4 % (37.0-47.0); HEMOGLOBIN 7.7 g/dl (12.0-16.0); MEAN CORPUSCULAR HEMOGLOBIN 30.9 pg (29.0-33.0); MEAN CORPUSCULAR HGB CONC 31.6 g/dl (32.0-37.0); MEAN PLATELET VOLUME 12.1 fl (7.4-10.4); NUCLEATED RED BLOOD CELLS% 6.4 /100WBC (0.0-0.0); PLATELET COUNT 136 10^3/UL (140-415); RED BLOOD COUNT 2.49 10^6/ul (4.20-5.40); RED CELL DISTRIBUTION WIDTH 19.9 % (11.5-14.5)
[2017-11-26 05:47] LABS: WHITE BLOOD COUNT 37.4 10^3/ul (4.8-10.8)
[2017-11-26 05:58] LABS: ADD MAN DIFF? YES; POSITIVE DIFF @See below
[2017-11-26] MEDS: PANTOPRAZOLE 40 MG INJ IV ×2 (06:11→17:01)
[2017-11-26] MEDS: BUMETANIDE 25 MG in DEXTROSE 5% 150 ML IV (06:11)
[2017-11-26] MEDS: PROPOFOL 100 ML IV ×2 (06:11→18:13)
[2017-11-26 06:22] LABS: AMMONIA 39 umol/l (9-30)
[2017-11-26 06:54] LABS: ANISOCYTOSIS 2+ (0-0); BAND NEUTROPHILS #M 1.1 10^3/ul (0.0-0.6); BAND NEUTROPHILS % (M) 3 % (0-4); BASOPHIL #M 0.3 10^3/ul (0.0-0.0); BASOPHILS % (M) 1 % (0-2); EOSINOPHILS % (M) 1 % (0-7); ERYTHROBLAST% (NRBC) (M) 8 % (0-0); LYMPHOCYTES #M 1.8 10^3/ul (0.8-2.9); LYMPHOCYTES % (M) 5 % (15-51); METAMYELOCYTES #M 0.7 10^3/ul (0.0-0.0); METAMYELOCYTES %M 2 % (0-0); MONOCYTE #M 2.9 10^3/ul (0.3-0.9); MONOCYTES % (M) 8 % (0-11); MYELOCYTES #M 2.2 10^3/ul (0.0-0.0); MYELOCYTES % (M) 6 % (0-0); PLATELET ESTIMATE DECREASED; POLYCHROMASIA 1+ (0-0); PROMYELOCYTES #M 0.3 10^3/ul (0-0); PROMYELOCYTES % (M) 1 % (0-0); SEG NEUT #M 27.7 10^3/ul (1.6-7.5); SEGMENTED NEUTROPHILS (M) % 73 % (39-77); SMUDGE%M 19 % (0-0)
[2017-11-26 06:55] LABS: LACTIC ACID 2.6 mmol/L (0.5-2.0)
[2017-11-26 06:56] LABS: PATH REVIEW? YES
[2017-11-26 06:56] LABS: B-TYPE NATRIURETIC PEPTIDE 6490 PG/ML (0-125)
[2017-11-26 07:27] LABS: ANION GAP 14 (8-16); BLOOD UREA NITROGEN 118 mg/dl (7-20); CALCIUM 9.4 mg/dl (8.4-10.2); CARBON DIOXIDE 24 mmol/L (21-31); CHLORIDE 104 mmol/L (97-110); CREATININE 2.56 mg/dl (0.44-1.00); GLUCOSE 124 mg/dl (70-220); POTASSIUM 4.5 mmol/L (3.5-5.1); SODIUM 137 mmol/L (135-144)
[2017-11-26] MEDS: SUCRALFATE 1 GM TAB PO ×4 (08:57→21:18)
[2017-11-26] MEDS: LACTULOSE 30ML CUP PO ×2 (08:57→21:18)
[2017-11-26] MEDS: BUPROPION 100 MG TAB NGT ×2 (08:58→21:18)
[2017-11-26] MEDS: OCULAR LUBRICANT 3.5 GM OPH OINT BOTH EYES ×2 (08:58→21:18)
[2017-11-26] MEDS: L ACIDOPHIL/B LACTIS/B LONGUM CAPSULE PO ×2 (08:58→21:18)
[2017-11-26] MEDS: NYSTATIN 30 GM POWDER BTL TOP ×2 (08:58→21:18)
[2017-11-26] MEDS: FLUCONAZOLE 200 MG TAB GTB (08:58)
[2017-11-26] MEDS: RANITIDINE 150 MG TAB PO ×2 (08:58→21:22)
[2017-11-26] MEDS: SACCHAROMYCES BOULARDII 250 MG CAP PO ×2 (08:58→21:18)
[2017-11-26] MEDS: FLUTICASONE 0.05% 16 GM NAS SPRAY NASAL ×2 (08:58→21:18)
[2017-11-26] MEDS: FLUTICASONE/VILANTEROL 200-25 INH DEVICE INH (09:07)
[2017-11-26] MEDS: INSULIN HUMAN REGULAR 100 UNIT in SOD CHLORIDE 0.9% 99 ML IV (18:13)
[2017-11-26] MEDS: MONTELUKAST 10 MG TAB PO (21:22)
[2017-11-27] MEDS: PIPER-TAZO 2.25 GM (PMX) 50 ML IVPB ×2 (00:18→05:58)
[2017-11-27] MEDS: ACCU-CHEK XX ×24 (00:42→23:45)
[2017-11-27] MEDS: ALBUTEROL HFA 8 GM INHALER INH ×4 (01:09→19:15)
[2017-11-27] MEDS: IPRATROPIUM (HFA) 12.9 GM INHALER INH ×4 (01:09→19:15)
[2017-11-27] MEDS: NORepinephrine 32 MG in DEXTROSE 5% 218 ML IV ×2 (03:31→04:22)
[2017-11-27 05:28] LABS: WHITE BLOOD COUNT 36.2 10^3/ul (4.8-10.8)
[2017-11-27 05:28] LABS: ABNORMAL IP MESSAGE 1; HEMATOCRIT 23.6 % (37.0-47.0); HEMOGLOBIN 7.4 g/dl (12.0-16.0); MEAN CORPUSCULAR HEMOGLOBIN 30.8 pg (29.0-33.0); MEAN CORPUSCULAR HGB CONC 31.4 g/dl (32.0-37.0); MEAN CORPUSCULAR VOLUME 98.3 fl (82.0-101.0); MEAN PLATELET VOLUME 11.8 fl (7.4-10.4); PLATELET COUNT 107 10^3/UL (140-415)
[2017-11-27 05:50] LABS: ADD MAN DIFF? YES; POSITIVE DIFF @See below
[2017-11-27] MEDS: PROPOFOL 100 ML IV (05:58)
[2017-11-27] MEDS: PANTOPRAZOLE 40 MG INJ IV ×2 (05:58→18:10)
[2017-11-27 06:24] LABS: ALANINE AMINOTRANSFERASE 39 IU/L (13-69); ALBUMIN 1.6 g/dl (3.3-4.9); ALBUMIN/GLOBULIN RATIO 0.57; ALKALINE PHOSPHATASE 439 IU/L (42-121); ANION GAP 13 (8-16); ASPARTATE AMINO TRANSFERASE 97 IU/L (15-46); BILIRUBIN,INDIRECT 0.8 mg/dl (0-1.1); BILIRUBIN,TOTAL 6.2 mg/dl (0.2-1.3); BLOOD UREA NITROGEN 116 mg/dl (7-20); CALCIUM 9.8 mg/dl (8.4-10.2); CARBON DIOXIDE 26 mmol/L (21-31); CHLORIDE 103 mmol/L (97-110); GLUCOSE 127 mg/dl (70-220); POTASSIUM 4.5 mmol/L (3.5-5.1); SODIUM 137 mmol/L (135-144); TOTAL PROTEIN 4.4 g/dl (6.1-8.1)
[2017-11-27] MEDS: SUCRALFATE 1 GM TAB PO ×4 (06:41→21:00)
[2017-11-27] MEDS: INSULIN HUMAN REGULAR 100 UNIT in SOD CHLORIDE 0.9% 99 ML IV (07:03)
[2017-11-27] MEDS: FLUTICASONE/VILANTEROL 200-25 INH DEVICE INH (09:00)
[2017-11-27] MEDS: BUMETANIDE 25 MG in DEXTROSE 5% 150 ML IV (09:48)
[2017-11-27] MEDS: OCULAR LUBRICANT 3.5 GM OPH OINT BOTH EYES ×2 (09:49→21:03)
[2017-11-27] MEDS: NYSTATIN 30 GM POWDER BTL TOP ×2 (09:49→21:03)
[2017-11-27] MEDS: FLUTICASONE 0.05% 16 GM NAS SPRAY NASAL ×2 (09:49→21:01)
[2017-11-27] MEDS: MEROPENEM 500MG/50 ML (PMX) 50 ML IVPB ×2 (10:00→21:00)
[2017-11-27] MEDS: FLUCONAZOLE 200 MG TAB GTB (10:00)
[2017-11-27] MEDS: LACTULOSE 30ML CUP PO ×2 (10:00→21:00)
[2017-11-27] MEDS: L ACIDOPHIL/B LACTIS/B LONGUM CAPSULE PO ×2 (10:00→21:00)
[2017-11-27] MEDS: RANITIDINE 150 MG TAB PO ×2 (10:00→21:01)
[2017-11-27] MEDS: BUPROPION 100 MG TAB NGT ×2 (10:00→21:00)
[2017-11-27] MEDS: SACCHAROMYCES BOULARDII 250 MG CAP PO ×2 (10:00→21:00)
[2017-11-27 10:24] LABS: ANISOCYTOSIS 2+ (0-0); BAND NEUTROPHILS % (M) 14 % (0-4); EOSINOPHILS % (M) 3 % (0-7); ERYTHROBLAST% (NRBC) (M) 8 % (0-0); LYMPHOCYTES #M 1.8 10^3/ul (0.8-2.9); LYMPHOCYTES % (M) 5 % (15-51); MONOCYTE #M 3.6 10^3/ul (0.3-0.9); MONOCYTES % (M) 10 % (0-11); MYELOCYTES #M 0.7 10^3/ul (0.0-0.0); MYELOCYTES % (M) 2 % (0-0); PLATELET ESTIMATE DECREASED; POLYCHROMASIA 1+ (0-0); PROMYELOCYTES #M 0.7 10^3/ul (0-0); PROMYELOCYTES % (M) 2 % (0-0); SEGMENTED NEUTROPHILS (M) % 64 % (39-77); SMUDGE%M 7 % (0-0)
[2017-11-27] MEDS: EPOETIN 10000 UNITS/ML (NON ESRD/NON ONCOLOGY) SC (18:09)
[2017-11-27] MEDS: MONTELUKAST 10 MG TAB PO (21:01)
[2017-11-28] MEDS: ACCU-CHEK XX ×11 (00:30→13:00)
[2017-11-28] MEDS: IPRATROPIUM (HFA) 12.9 GM INHALER INH ×2 (01:20→07:40)
[2017-11-28] MEDS: ALBUTEROL HFA 8 GM INHALER INH ×2 (01:20→07:40)
[2017-11-28] MEDS: PROPOFOL 100 ML IV ×2 (02:23→12:30)
[2017-11-28 05:12] LABS: ADD MAN DIFF? NO
[2017-11-28 05:19] LABS: ABNORMAL IP MESSAGE 1; BASOPHIL # 0.2 10^3/ul (0.0-0.1); BASOPHILS % 0.6 % (0.0-2.0); EOSINOPHILS # 0.9 10^3/ul (0.0-0.5); EOSINOPHILS % 2.3 % (0.0-7.0); HEMOGLOBIN 7.3 g/dl (12.0-16.0); LYMPHOCYTES # 3.8 10^3/ul (0.8-2.9); LYMPHOCYTES % 9.5 % (15.0-51.0); MEAN CORPUSCULAR HEMOGLOBIN 30.3 pg (29.0-33.0); MEAN CORPUSCULAR HGB CONC 31.7 g/dl (32.0-37.0); MEAN CORPUSCULAR VOLUME 95.4 fl (82.0-101.0); MEAN PLATELET VOLUME 11.6 fl (7.4-10.4); MONOCYTE # 3.8 10^3/ul (0.3-0.9); MONOCYTES % 9.5 % (0.0-11.0); NEUTROPHIL # 26.7 10^3/ul (1.6-7.5); NEUTROPHILS % 67.2 % (39.0-77.0); NUCLEATED RED BLOOD CELLS # 3.3 10^3/ul (0.0-0.0); NUCLEATED RED BLOOD CELLS% 8.2 /100WBC (0.0-0.0); PLATELET COUNT 130 10^3/UL (140-415); RED BLOOD COUNT 2.41 10^6/ul (4.20-5.40); RED CELL DISTRIBUTION WIDTH 20.6 % (11.5-14.5)
[2017-11-28 05:19] LABS: WHITE BLOOD COUNT 39.8 10^3/ul (4.8-10.8)
[2017-11-28 05:27] LABS: POSITIVE DIFF @See below
[2017-11-28] MEDS: PANTOPRAZOLE 40 MG INJ IV (05:30)
[2017-11-28 05:49] LABS: ALANINE AMINOTRANSFERASE 31 IU/L (13-69); ALBUMIN 2.1 g/dl (3.3-4.9); ALBUMIN/GLOBULIN RATIO 0.67; ALKALINE PHOSPHATASE 561 IU/L (42-121); ANION GAP 17 (8-16); ASPARTATE AMINO TRANSFERASE 121 IU/L (15-46); BILIRUBIN,INDIRECT 0.6 mg/dl (0-1.1); BILIRUBIN,TOTAL 6.2 mg/dl (0.2-1.3); BLOOD UREA NITROGEN 118 mg/dl (7-20); CALCIUM 9.9 mg/dl (8.4-10.2); CARBON DIOXIDE 21 mmol/L (21-31); CHLORIDE 103 mmol/L (97-110); GLUCOSE 117 mg/dl (70-220); POTASSIUM 5.1 mmol/L (3.5-5.1); SODIUM 136 mmol/L (135-144); TOTAL PROTEIN 5.2 g/dl (6.1-8.1)
[2017-11-28 07:46] LABS: ANISOCYTOSIS 2+ (0-0); BAND NEUTROPHILS #M 3.9 10^3/ul (0.0-0.6); BAND NEUTROPHILS % (M) 10 % (0-4); EOSINOPHILS % (M) 3 % (0-7); ERYTHROBLAST% (NRBC) (M) 12 % (0-0); GIANT THROMBO% (M) 1 % (0-0); LYMPHOCYTES #M 4.3 10^3/ul (0.8-2.9); LYMPHOCYTES % (M) 11 % (15-51); METAMYELOCYTES #M 0.7 10^3/ul (0.0-0.0); METAMYELOCYTES %M 2 % (0-0); MONOCYTE #M 2.7 10^3/ul (0.3-0.9); MONOCYTES % (M) 7 % (0-11); MYELOCYTES #M 1.1 10^3/ul (0.0-0.0); MYELOCYTES % (M) 3 % (0-0); PLATELET ESTIMATE DECREASED; POLYCHROMASIA 2+ (0-0); PROMYELOCYTES #M 0.7 10^3/ul (0-0); PROMYELOCYTES % (M) 2 % (0-0); REACTIVE LYMPHOCYTES #M 0.3 10^3/ul (0.0-0.0); REACTIVE LYMPHOCYTES% (M) 1 % (0-0); SEG NEUT #M 25.8 10^3/ul (1.6-7.5); SEGMENTED NEUTROPHILS (M) % 61 % (39-77); SMUDGE%M 19 % (0-0); TARGET CELLS 2+ (0-0)
[2017-11-28] MEDS: OCULAR LUBRICANT 3.5 GM OPH OINT BOTH EYES (08:55)
[2017-11-28] MEDS: BUPROPION 100 MG TAB NGT (08:56)
[2017-11-28] MEDS: FLUCONAZOLE 200 MG TAB GTB (08:56)
[2017-11-28] MEDS: SUCRALFATE 1 GM TAB PO ×2 (08:56→11:18)
[2017-11-28] MEDS: RANITIDINE 150 MG TAB PO (08:56)
[2017-11-28] MEDS: L ACIDOPHIL/B LACTIS/B LONGUM CAPSULE PO (08:56)
[2017-11-28] MEDS: SACCHAROMYCES BOULARDII 250 MG CAP PO (08:56)
[2017-11-28] MEDS: FLUTICASONE 0.05% 16 GM NAS SPRAY NASAL (08:57)
[2017-11-28] MEDS: FLUTICASONE/VILANTEROL 200-25 INH DEVICE INH (09:00)
[2017-11-28] MEDS: LACTULOSE 30ML CUP PO (09:00)
[2017-11-28] MEDS: DIGOXIN 500 MCG INJ IV (09:02)
[2017-11-28] MEDS: MEROPENEM 500MG/50 ML (PMX) 50 ML IVPB (09:08)
[2017-11-28] MEDS: NYSTATIN 30 GM POWDER BTL TOP (09:30)
[2017-11-28] MEDS: BUMETANIDE 25 MG in DEXTROSE 5% 150 ML IV (10:00)
[2017-11-28] MEDS: morphine (DRIP) 100 MG/100 ML 100 ML IV (14:43)
== END 2017-11-28 16:52 | disposition expired | DRG 441 ==
LOC: TEL 08-18 13:54 → ICU 09-09 05:03 → TEL 11-17 12:48 → ICU 18:48 → 2NE 11-10 12:45 → ICU 21:42 → TEL 09-27 23:10 → ICU 11-17 22:57 → 2NE 11-08 23:46
PROC: 5A1955Z Respiratory Ventilation, Greater than 96 Consecutive Hours (ICD-10-PCS; principal; 2017-11-15 16:05)
PROC: 0BH17EZ Insertion of Endotracheal Airway into Trachea, Via Natural or Artificial Opening (ICD-10-PCS; 2017-11-15 16:05)
PROC: 0DB78ZX Excision of Stomach, Pylorus, Via Natural or Artificial Opening Endoscopic, Diagnostic (ICD-10-PCS; 2017-11-15 16:05)
PROC: 5A1955Z Respiratory Ventilation, Greater than 96 Consecutive Hours (ICD-10-PCS; 2017-11-15 16:05)
DX: K72.90 Hepatic failure, unspecified without coma (principal); I50.43 Acute on chronic combined systolic (congestive) and diastolic (congestive) heart failure; G92 Toxic encephalopathy; J18.9 Pneumonia, unspecified organism; K25.4 Chronic or unspecified gastric ulcer with hemorrhage; J96.02 Acute respiratory failure with hypercapnia; J96.01 Acute respiratory failure with hypoxia; A41.9 Sepsis, unspecified organism; R65.21 Severe sepsis with septic shock; D62 Acute posthemorrhagic anemia; N17.9 Acute kidney failure, unspecified; E72.20 Disorder of urea cycle metabolism, unspecified; I13.0 Hypertensive heart and chronic kidney disease with heart failure and stage 1 through stage 4 chronic kidney disease, or unspecified chronic kidney disease; J45.901 Unspecified asthma with (acute) exacerbation; Z68.41 Body mass index [BMI] 40.0-44.9, adult; N39.0 Urinary tract infection, site not specified; K92.2 Gastrointestinal hemorrhage, unspecified; J44.0 Chronic obstructive pulmonary disease with (acute) lower respiratory infection; D61.818 Other pancytopenia; L97.909 Non-pressure chronic ulcer of unspecified part of unspecified lower leg with unspecified severity; E10.40 Type 1 diabetes mellitus with diabetic neuropathy, unspecified; E10.22 Type 1 diabetes mellitus with diabetic chronic kidney disease; N18.3 Chronic kidney disease, stage 3 (moderate); Z79.4 Long term (current) use of insulin; I25.10 Atherosclerotic heart disease of native coronary artery without angina pectoris; Z86.718 Personal history of other venous thrombosis and embolism; E10.649 Type 1 diabetes mellitus with hypoglycemia without coma; J45.909 Unspecified asthma, uncomplicated; J44.9 Chronic obstructive pulmonary disease, unspecified; E87.6 Hypokalemia; K75.81 Nonalcoholic steatohepatitis (NASH); K74.69 Other cirrhosis of liver; B37.9 Candidiasis, unspecified; R53.81 Other malaise; E10.41 Type 1 diabetes mellitus with diabetic mononeuropathy; G52.9 Cranial nerve disorder, unspecified; E66.01 Morbid (severe) obesity due to excess calories; Z79.84 Long term (current) use of oral hypoglycemic drugs; E78.5 Hyperlipidemia, unspecified; G47.33 Obstructive sleep apnea (adult) (pediatric); K12.0 Recurrent oral aphthae; R53.83 Other fatigue; R23.3 Spontaneous ecchymoses; E87.5 Hyperkalemia; B96.20 Unspecified Escherichia coli [E. coli] as the cause of diseases classified elsewhere; Z93.1 Gastrostomy status; Z99.2 Dependence on renal dialysis; D69.6 Thrombocytopenia, unspecified; R60.1 Generalized edema; R21 Rash and other nonspecific skin eruption; R13.10 Dysphagia, unspecified; G47.00 Insomnia, unspecified; K80.20 Calculus of gallbladder without cholecystitis without obstruction; L89.899 Pressure ulcer of other site, unspecified stage; R45.1 Restlessness and agitation; E83.39 Other disorders of phosphorus metabolism; D63.8 Anemia in other chronic diseases classified elsewhere; F41.9 Anxiety disorder, unspecified; Z66 Do not resuscitate
CPT/HCPCS: 31500; 36430; 36600; 70450; 71045; 71250; 71275; 74018; 74150; 76705; 80048; 80053; 80202; 81001; 81003; 82040; 82105; 82140; 82270; 82390; 82550; 82553; 82570; 82607; 82728; 82746; 82784; 82785; 82803; 82947; 82962; 82977; 83010; 83540; 83605; 83615; 83690; 83735; 83880; 83970; 84100; 84132; 84134; 84145; 84155; 84165; 84443; 84466; 84484; 85014; 85018; 85025; 85045; 85335; 85378; 85384; 85610; 85613; 85651; 85730; 86022; 86038; 86147; 86255; 86304; 86320; 86704; 86706; 86708; 86709; 86803; 86850; 86900; 86901; 86920; 87040; 87070; 87075; 87081; 87086; 87340; 88305; 88312; 89220; 90935; 92526; 92610; 93005; 93306; 93970; 94002; 94003; 94640; 94660; 94664; 94760; 94770; 97110; 97116; 97162; 97163; 97167; 97530; 97535